=== PATIENT | female | born 1985 | race Caucasian/White ===

== ENCOUNTER 2024-09-18 18:58 | Emergency (ER) | payer OTHER, SELFPAY ==
[2024-09-18 19:03] VITALS: BP 158/91; PULSE 100; TEMP 37; O2SAT 96; BMI 45.7
[2024-09-18] MEDS: LIDOCAINE HCL 1% 100 MG/10 ML MDV INJ (19:29)
[2024-09-18] MEDS: KETOROLAC TROMETHAMINE 30 MG/ML VIAL IVP (19:29)
[2024-09-18] MEDS: CLINDAMYCIN PHOSPHATE/D5W 900 MG/50 ML PREMIX 100 MG IV (19:30)
[2024-09-18] MEDS: ONDANSETRON PF 4 MG/2 ML VIAL IV (19:30)
[2024-09-18 19:38] LABS: Basophils Absolute Auto 0.1 10^3/uL (0.0-0.1); Basophils Percent Auto 0.6 % (0.2-2.0); Eosinophils Absolute Auto 0.3 10^3/uL (0.0-0.7); Eosinophils Percent Auto 2.5 % (0.9-7.0); Hematocrit 49.4 % (36.0-48.0); Hemoglobin 16.9 g/dL (12.0-16.0); Immature Granulocytes Abs Auto 0.08 10^3/uL (0.00-0.03); Immature Granulocytes Pct Auto 0.6 % (0.0-0.5); Lymphocytes Absolute Auto 2.7 10^3/uL (1.2-3.8); Lymphocytes Percent Auto 20.5 % (20.5-60.0); Mean Corpuscular HGB Conc 34.2 g/dL (29.9-35.2); Mean Corpuscular Hemoglobin 31.1 pg (26.7-34.0); Mean Corpuscular Volume 90.8 fL (81.0-99.0); Monocytes Absolute Auto 0.7 10^3/uL (0.3-0.8); Monocytes Percent Auto 5.4 % (1.7-12.0); Neutrophils Absolute Auto 9.3 10^3/uL (1.4-6.5); Neutrophils Percent Auto 70.4 % (43.0-75.0); Platelet Count 335 10^3/uL (150-450); Red Blood Count 5.44 10^6/uL (4.20-5.40); Red Cell Distribution Width 13.2 % (11.0-15.0); White Blood Count 13.3 10^3/uL (4.0-11.0)
[2024-09-18 19:48] LABS: Alanine Aminotransferase 28 U/L (14-59); Albumin Globulin Ratio 1.1; Albumin Level 3.9 g/dL (3.4-5.0); Alkaline Phosphatase 101 U/L (46-116); Anion Gap 13.3; Aspartate Amino Transferase 11 U/L (15-37); BUN Creatinine Ratio 14.1; Bilirubin Total 0.4 mg/dL (0.2-1.0); Calcium 9.2 mg/dL (8.5-10.1); Carbon Dioxide 26.6 mmol/L (21.0-32.0); Chloride 99 mmol/L (98-107); Estimated GFR (African America >60 (>=60 mL/min/1.73m^2); Estimated GFR (Non-African Ame >60 (>=60 mL/min/1.73m^2); Globulin 3.7 g/dL; Glucose 148 mg/dL (74-106); Potassium 3.9 mmol/L (3.5-5.1); Sodium 135 mmol/L (136-145); Total Protein 7.6 g/dL (6.4-8.2)
[2024-09-18 19:50] LABS: Lactate/Lactic Acid 1.6 mmol/L (0.4-2.0)
--- NOTE | 2024-09-18 20:23 | ED_ITS ---
HPI HPI - General Adult General Chief complaint: Skin/Abscess/Foreign Body Stated complaint: ABCESS IN GROIN Time Seen by Provider: 09/18/24 19:09 Source: patient Mode of arrival: walk-in Limitations: no limitations History of Present Illness HPI narrative: 39-year-old female presents here with a chief complaint of an abscess to the left labial, vagina. Patient has a history of hidradenitis. States she has multiple abscess to this region in the past. She states she was trying to drain it at home. He has now become irritated. She is afebrile nontoxic. Patient has not been hospitalized or placed on antibiotics for these in the past. Related Data Previous Rx's ?Medication ?Instructions ?Recorded clindamycin HCl 300 mg capsule 300 mg PO TID 10 days #30 caps 09/18/24 fluconazole 200 mg tablet 200 mg PO ONCE #2 tabs 09/18/24 (Diflucan) Allergies Allergy/AdvReac Type Severity Reaction Status Date / Time No Known Drug Allergies Allergy Verified 09/18/24 19:03 Opioid HPI Opioid Management Most Recent Opioid Data: No Data to Display Review of Systems ROS Status of ROS 10 or more systems reviewed and unremark able except as noted in history and below PFSH PFSH Social History Little interest or pleasure in doing things: not at all Feeling down, depressed, or hopeless: not at all Exam Narrative Exam Narrative: All Systems are negative except as noted/marked.All systems reviewed and otherwise negative Nurses note and vital signs reviewed and patient is not hypoxic. General: The patient appears well and in no apparent distress. Patient is resting comfortably on cart. Skin: Warm, dry, no pallor noted. There is no rash noted. Head: Normocephalic, atraumatic Eye: Normal conjunctiva, no drainage, EOMI. PERRL Ears, Nose, Mouth, and Throat: oral mucosa is moist. Nares patent. Mouth without vesicles. Ear canals patent. Tm's without Erythema Cardiovascular: Regular Rate and Rhythm Respiratory: Patient is in no distress, no accessory muscle use, lungs are clear to auscultation, no wheezing, rales or rhonchi Back: non-tender, no CVA tenderness bilaterally to percussion. GI: Normal bowel sounds, no tenderness to palpation, no masses appreciated. No rebound, guarding, or rigidity noted. Musculoskeletal: The patient has no evidence of calf tenderness, no pitting edema, symmetrical pulses noted bilaterally Neurological: A&O x4, normal speech Psychiatric: Cooperative Constitutional Vital Signs, click to edit/add: Last Vital Signs Temp 98.6 F 09/18/24 19:03 Pulse 100 H 09/18/24 19:03 Resp 18 09/18/24 19:03 BP 158/91 H 09/18/24 19:03 Pulse Ox 96 09/18/24 19:03 O2 Del Method Room Air 09/18/24 19:03 Speculum exam - vagina: vaginal swelling, vaginal tenderness and other (Left vaginal abscess, induration, fluctuance) Course Vital Signs Vital signs: Vital Signs Temperature 98.6 F 09/18/24 19:03 Pulse Rate 100 H 09/18/24 19:03 Respiratory Rate 18 09/18/24 19:03 Blood Pressure 158/91 H 09/18/24 19:03 Pulse Oximetry 96 09/18/24 19:03 Oxygen Delivery Method Room Air 09/18/24 19:03 Temperature 98.6 F 09/18/24 19:03 Pulse Rate 100 H 09/18/24 19:03 Respiratory Rate 18 09/18/24 19:03 Blood Pressure 158/91 H 09/18/24 19:03 Pulse Oximetry 96 09/18/24 19:03 Oxygen Delivery Method Room Air 09/18/24 19:03 Medical Decision Making [facility] Narrative Medical decision making narrative: 39-year-old female presents here with a chief complaint of an abscess to the left labial, vagina. Patient has a history of hidradenitis. States she has multiple abscess to this region in the past. She states she was trying to drain it at home. He has now become irritated. She is afebrile nontoxic. Patient has not been hospitalized or placed on antibiotics for these in the past. upon arrival to ed, patient had IV established was given IV antibiotics of clindamycin. She had a left mons pubis, labial area of induration and swelling. History of hidradenitis. Area was anesthetized 1% lidocaine solution locally x 3 cc 11 blade was used to make a small incision to the area. Blood, serous fluid was then drained from the area. Copious amounts of saline was used to irrigate the area. Dressing applied by nursing staff. Patient will be treated with clindamycin for her abscess. She will follow-up with Dr. Carmona's office next week. Reasons to return to the emergency room were discussed. Differential Diagnosis Differential Diagnosis: abscess, bartholin cyst Medical Records Medical records reviewed: Yes I reviewed the patient's medical records Lab Data Labs: Lab Results 09/18/24 Range/Units 19:19 WBC 13.3 H (4.0-11.0) 10^3/uL RBC 5.44 H (4.20-5.40) 10^6/uL Hgb 16.9 H (12.0-16.0) g/dL Hct 49.4 H (36.0-48.0) % MCV 90.8 (81.0-99.0) fL MCH 31.1 (26.7-34.0) pg MCHC 34.2 (29.9-35.2) g/dL RDW 13.2 (11.0-15.0) % Plt Count 335 (150-450) 10^3/uL MPV 9.0 L (9.5-13.5) fL Neut % (Auto) 70.4 (43.0-75.0) % Lymph % (Auto) 20.5 (20.5-60.0) % Terry % (Auto) 5.4 (1.7-12.0) % Eos % (Auto) 2.5 (0.9-7.0) % Baso % (Auto) 0.6 (0.2-2.0) % Neut # (Auto) 9.3 H (1.4-6.5) 10^3/uL Lymph # (Auto) 2.7 (1.2-3.8) 10^3/uL Terry # (Auto) 0.7 (0.3-0.8) 10^3/uL Eos # (Auto) 0.3 (0.0-0.7) 10^3/uL Baso # (Auto) 0.1 (0.0-0.1) 10^3/uL Abs Immat Gran (auto) 0.08 H (0.00-0.03) 10^3/uL Imm/Tot Granulo (auto) 0.6 H (0.0-0.5) % Sodium 135 L (136-145) mmol/L Potassium 3.9 (3.5-5.1) mmol/L Chloride 99 (98-107) mmol/L Carbon Dioxide 26.6 (21.0-32.0) mmol/L Anion Gap 13.3 BUN 10.0 (7.0-18.0) mg/dL Creatinine 0.71 (0.55-1.02) mg/dL Est GFR ( Amer) >60 (>=60 mL/min/1.73m^2) Est GFR (Non-Af Amer) >60 (>=60 mL/min/1.73m^2) BUN/Creatinine Ratio 14.1 Glucose 148 H (74-106) mg/dL Lactate 1.6 (0.4-2.0) mmol/L Calcium 9.2 (8.5-10.1) mg/dL Total Bilirubin 0.4 (0.2-1.0) mg/dL AST 11 L (15-37) U/L ALT 28 (14-59) U/L Alkaline Phosphatase 101 (46-116) U/L Total Protein 7.6 (6.4-8.2) g/dL Albumin 3.9 (3.4-5.0) g/dL Globulin 3.7 g/dL Albumin/Globulin Ratio 1.1 Discharge Plan Discharge Chief Complaint: Skin/Abscess/Foreign Body Clinical Impression: Abscess of vagina Patient Disposition: Home, Self-Care Time of Disposition Decision: 20:20 Condition: Good Prescriptions / Home Meds: New clindamycin HCl 300 mg capsule 300 mg PO TID 10 Days Qty: 30 0RF fluconazole [Diflucan] 200 mg tablet 200 mg PO ONCE Qty: 2 0RF Print Language: Ecuadorean Instructions: Abscess (ED) Referrals: Dean Carmona DO [Physician] - 09/22/24 (call for follow up appointment) Physician,Non-Staff, [Physician] - 1 week Discharge Date/Time: 09/18/24 20:43
[2024-09-18] MEDS: BACITRACIN 0.9 GM PACKET 1 PACKET TOPICAL (20:39)
== END 2024-09-18 20:43 | disposition home or self-care (01) ==
PROVIDERS: Physician Assistant; Emergency Provider Internal Medicine; PCP Family Medicine
DX: N76.4 Abscess of vulva (principal)
CPT/HCPCS: 36415; 56405; 80053; 83605; 85025; 87040; 87070; 87075; 87186; 96365; 96375; 99285; J0736; J1885; J2405

== ENCOUNTER 2024-11-15 20:39 | Emergency (ER) | payer OTHER, SELFPAY ==
[2024-11-15 20:42] VITALS: BP 153/97; PULSE 88; TEMP 37.1; O2SAT 96; BMI 47.6
--- OUTSIDE RECORDS SUMMARY | 2024-11-15 20:45 | XMS_ITS | CCD ---
Author Organization [facility] Care Team Providers Care [employer] Producer Name Role Phone LAYO BILLS Admitting Unavailable LAYO BILLS Attending Unavailable HOUSE, SANJEEV Referring Unavailable HOUSE, SANJEEV Primary Care Unavailable [facility] Procedure Practitioner Unavailab LAYO Faith Surgeon Unavailable UT Procedure Practitioner Unavailab TONY Linares Surgeon Unavailable House, Sr Sanjeev P Primary Care Provider House, Sr Sanjeev P Primary Care Provider House DO, Sr Sanjeev P Primary Care Provider [phone] SARTHAK PARMAR Attending Unavailable HOUSE, SR SANJEEV P Primary Care Unavailable HOUSE, SR SANJEEV P Primary Care Unavailable NEELIMA DUTTON Attending Unavailable HOUSE, SR SANJEEV P Primary Care Unavailable HOUSE, SR SANJEEV P Primary Care Unavailable ADELA SWENSON Attending Unavailable TONIE ARZOLA Attending Unavailable HOUSE, SR SANJEEV P Primary Care Unavailable HOUSE, SR SANJEEV P Primary Care Unavailable Bill Dan Unavailable HOUSE, DR PATEL Admitting Unavailable HOUSE, DR PATEL Attending Unavailable HOUSE, DR PATEL Primary Care Unavailable MARKER, DR MORRISSEY Admitting Unavailable MARKER, DR MORRISSEY Attending Unavailable MARKER, DR MORRISSEY Consulting Unavailable HOUSE, DR PATEL Primary Care Unavailable KURTIS CHAU Consulting Unavailable ALEX VALLEJO Attending Unavailable CHARLES, DR CYRUS Ventura Consulting Unavailable HOUSE, DR PATEL Primary Care Unavailable ALEX VALLEJO Admitting Unavailable ALEX VALLEJO Consulting Unavailable ANDERS BHARDWAJ Attending Unavailable [facility] [place] DR VICTORIA Primary Care Unavailable [place], DR RAOUL Barth Consulting Unavailable ANDERS BHARDWAJ Admitting Unavailable ANDERS BHARDWAJ Consulting Unavailable HOUSE, DR PATEL Primary Care Unavailable STEPHEN OTTO Admitting Unavailable STEPHEN OTTO Attending Unavailable STEPHEN OTTO Consulting Unavailable Bill Dan Unavailable Unavailable Unavailable DO Jose Lan Admit Provider DO Bill Dan Primary Care Provider GUS Montesinos Other Provider Unavailable DO Suzette Sow Other Provider MD Orlando Lara Other Provider MD Waldo Varma Other Provider MD Maite Leary Other Provider MD Sanjeev Ibrahim Other Provider ROCCO Bowden Other Provider MD Brooklynn Rg Other Provider MD Shavonne Lawrence Najoseline Other Provider MD Brynn Wright Other Provider MD Yash Garvey Attending Provider Waldo Varma II Attending Unavailable Waldo Varma II Referring Unavailable Dr. Waldo Sow Attending Unavailable Dr. Waldo Sow Attending Unavailable Dr. Waldo Sow Referring Unavailable Waldo Varma II Attending Unavailable MD Brooklynn Rg Other Provider DO Aurelio Jesus Emergency Provider DO Stephane Alonso Emergency Provider [phone] DO Bill Dan Primary Care Provider ROCCO Elaine Attending Provider [phone] DO Bill Dan Primary Care Provider Lesia [facility] Emergency Provider Kendrick Joya Unavailable DO Bill Dan Primary Care Provider MD Mc Duran Attending Provider DO Bill Dan Attending Provider ROCCO Elaine Referring Provider Bill Dan MD Primary Care Provider Mely Steinberg MD Unavailable [phone] Bill Dan DO Primary Care Provider NON STAFF Primary Care Provider Unavailabl e DO Gavin [facility] Emergency Provider [phone] DO Bill Dan Primary Care Provider MD Mc Duran Attending Provider DO Bill Dan Referring Provider MD Nigel Lawson Attending Provider DO Bill Dan Primary Care Provider MD Mc Duran Attending Provider MD Mely Steinberg Attending Provider [phone] DO Bill Dan Primary Care Provider MD Mc Duran Attending Provider MD Mc Duarn Attending Provider ROCCO Elaine Attending Provider [phone] Bill Dan DO Primary Care Provider Molly Elaine APRN Attending Provider Mc Duran MD Attending Provider Earnestine Alonso APRN Emergency Provider MELY STEINBERG Attending Unavailable MELY STEINBERG Referring Unavailable NIGEL LAWSON Attending Unavailable ALDEN LIN Attending Unavailable Bill Dan MD Primary Care Provider Bill Dan DO Primary Care Provider WALDO SOW Attending Unavailable SVETA GARNICA Referring Unavailable BILL DAN Primary Care UnavailBill Martell Primary Care Unavailable Molly Elaine Admitting Unavailable Molly Elaine Attending Unavailable Bill Dan Primary Care Unavailable Mely Steinberg Admitting Unavailable Mely Steinberg Attending Unavailable Bill Dan Primary Care Unavailable Mc Duran Admitting Unavailab Mc Antony Attending Unavailab Bill Jennings Primary Care Unavailable Mely Steinberg Admitting Unavailable Mely Steinberg Attending Unavailable Earnestine Alonso Admitting Unavailable Earnestine Alonso Attending Unavailable Bill Dan Primary Care Unavailable Allergies Allergy Classification Reported Allergen(s) Allergy Type Date of Onset Reaction(s) Facility (1 source) metFORMIN Drug Allergy 01-20-2022 Abdominal Pain [facility] Medications Current Medications Medication Drug Class(es) Dates Sig (Normalized) Sig (Original) acetaminophen 325 mg / HYDROcodone bitartrate 5 mg oral tablet (7 sources) Opioid Agonist Start: 02-23-2020 End: 02-26-2020 take 1 tablet by mouth every six hours as needed for pain, then take 1 tablet by mouth as needed for pain HYDROcodone-acetam inophen (NORCO) 5-325 MG per tablet Indications: Non-intractable vomiting with nausea, unspecified vomiting type Take 1 tablet by mouth every 6 hours as needed for Pain for up to 3 days. Intended supply: 3 days. Take lowest dose possible to manage pain 6 tablet 0 02/23/2020 02/26/2020 Active Start: 02-23-2020 End: 02-23-2020 HYDROcodone-acetaminophen (N ORCO) 5-325 MG per tablet 1 tablet Start: 02-21-2020 hydrocodone-ac etaminophen (NORCO) tablet 5-325 mg (STARTER PACK) Start: 10-28-2016 End: 02-23-2020 take 1 tablet by mouth every four hours as needed for pain HYDROcodone-acetaminophen (NORCO) 5-325 MG per tablet Take 1 tablet by mouth every 4 hours as needed for Pain . 10 tablet 0 10/28/2016 02/23/2020 Discontinued (LIST CLEANUP) albuterol 0.83 mg/ml inhalation solution (20 sources) beta2-Adrenergic Agonist Start: 09-09-2024 End: 10-09-2024 albuterol (2.5 MG/3ML) 0.083% nebulizer solution Indications: Bronchitis with asthma, acute ([facility]/HCC) Take 3 mL (2.5 mg) by nebulization every 6 (six) hours if needed for wheezing or shortness of breath 90 mL 09/09/2024 10/09/2024 Active Start: 06-04-2024 take 2.5 mg by inhal ation every four to six hours as needed for wheezing Albuterol Sulfate 2.5 mg /3 mL (0.083 %) solution for nebulization Active 2.5 MG INHALATION EVERY 4-6 HOURS as needed for shortness of breath or wheezing 75 June 04, 2024 12:00am Start: 03-02-2024 End: 04-21-2024 take 1 puff(s) by mouth every four hours as needed Albuterol Sulfate 90 mcg/actuation HFA aerosol inhaler Active 0 .ROUTE .COMPLEX April 21, 2024 8:53am INHALE 1 PUFF BY MOUTH EVERY 4 HOURS NEEDED Start: 07-13-2021 take 1 puff(s) by in halation every four hours as needed Albuterol Sulfate HFA 108 (90 Base) MCG/ACT 1 puff as needed Inhalation every 4 hrs PRN Jul, Active Start: 07-13-2021 take 1 puff(s) by in halation every four hours as needed Albuterol Sulfate HFA 108 (90 Base) MCG/ACT 1 puff as needed Inhalation every 4 hrs PRN Jul, Active Start: 03-29-2020 End: 03-02-2024 take 1 puff(s) by inhalation every six hours Albuterol Sulfate (Proair Hfa) 90 mcg/actuation HFA aerosol inhaler Discontinued 2 PUFF INHALATION Every 6 hours January 19, 2022 11:00pm April 29, 2023 12:52pm take 2 puff(s) by in halation every six hours albuterol 90 mcg/actuation inhaler Inhale 2 puffs every 6 hours. Active take 2 puff(s) by in halation every six hours albuterol HFA 90 mcg/act inhaler Inhale 2 puffs every 6 (six) hours Active Albuterol Sulfat e (2.5 MG/3ML) 0.083% 3 ml as needed Inhalation every 6 hrs PRN Active take 1 puff(s) by mo uth every four hours as needed Ventolin HFA 108 (90 Base) MCG/ACT INHALE ONE PUFF BY MOUTH EVERY 4 HOURS NEEDED for 33 days Active Albuterol Sulfat e (2.5 MG/3ML) 0.083% 3 ml as needed Inhalation every 6 hrs PRN Active albuterol sulfat e HFA 108 (90 BASE) MCG/ACT inhaler Inhale 2 puffs into the lungs as needed for Wheezing 0 Active albuterol sulfat e HFA 108 (90 BASE) MCG/ACT inhaler Inhale 2 puffs into the lungs as needed for Wheezing 0 Active albuterol 0.833 mg/ml / ipratropium bromide 0.167 mg/ml inhalation solution (7 sources) Anticholinergic, beta2-Adrenergic Agonist Start: 10-21-2018 take 3 mL by inhalation every four to six hours as needed ipratropium-albuterol (DUONEB) 0.5-2.5 (3) MG/3ML SOLN nebulizer solution Inhale 3 mLs into the lungs every 4-6 hours as needed for Shortness of Breath 100 vial 1 10/21/2018 Active aspirin 81 mg delayed release oral tablet (20 sources) Platelet Aggregation Inhibitor, Nonsteroidal Anti-inflammatory Drug Start: 02-15-2022 End: 10-01-2023 take 1 tablet by mouth once daily aspirin 81 mg EC tablet Indications: Mild CAD , NSTEMI, initial episode of care (Multi) Take 1 tablet (81 mg) by mouth once daily. 90 tablet 3 10/01/2023 Active Start: 01-22-2022 End: 01-21-2024 take 1 capsule by mouth once daily in the morning Aspirin 81 mg capsule Active 81 MG PO Every morning January 20, 2024 11:00pm take 1 tablet by supriya th every twenty-four hours Aspirin 81 MG 1 tablet Orally Once a day Active atenolol 50 mg oral tablet (20 sources) beta-Adrenergic Leticia Start: 03-09-2014 End: 09-29-2025 take 1 tablet by mouth once daily atenolol (Tenormin) 50 mg tablet Indications: Syndrome X (cardiac) Take 1 tablet (50 mg) by mouth once daily. 90 tablet 3 09/29/2024 09/29/2025 Active atorvastatin 40 mg oral tablet (20 sources) HMG-CoA Reductase Inhibitor Start: 04-20-2024 take 1 tablet by mouth once daily at bedtime atorvastatin (Lipitor) 40 mg tablet Indications: Pure hypercholesterolemia TAKE 1 TABLET BY MOUTH EVERY NIGHT AT BEDTIME 90 tablet 3 04/20/2024 Active Start: 01-22-2022 End: 01-21-2024 take 1 tablet by mouth at bedtime atorvastatin (Lipitor) 40 MG tablet Take 40 mg by mouth at bedtime 06/10/2023 Active Austedo XR 30 mg tablet extended release 24 hr (1 source) Start: 04-06-2024 take 1 tablet by mouth once daily Austedo XR 30 mg tablet extended release 24 hr Take 1 tablet by mouth once daily. 04/06/2024 Active Austedo XR 30 MG tablet sustained-release 24 hour (7 sources) Start: 04-06-2024 take 1 tablet by mouth once daily Austedo XR 30 MG tablet sustained-release 24 hour Take 1 tablet by mouth Daily 04/06/2024 Active Blood Glucose Monitoring Suppl (ONE TOUCH ULTRA 2) w/Device kit (15 sources) Start: 10-03-2022 Blood Glucose Monitoring Suppl (ONE TOUCH ULTRA 2) w/Device kit 10/03/2022 Active Start: 10-03-2022 Blood Glucose Monitoring Suppl (ONE TOUCH ULTRA 2) w/Device kit buprenorphine 8 mg / naloxone 2 mg sublingual film (20 sources) Partial Opioid Agonist, Opioid Antagonist Start: 03-31-2024 Buprenorphine-Naloxo ne (Suboxone) 8-2 mg film Active 2 FILM BUCCAL Daily March 30, 2024 11:00pm place 1 film on inside of (each) cheek Start: 04-29-2023 buprenorphine- naloxone (Suboxone) 12-3 MG per sublingual film Q24H 04/29/2023 Active Start: 04-29-2023 End: 03-31-2024 Buprenorphine-Naloxone (Subo xone) 12-3 mg Film Discontinued 1 FILM BUCCAL Q24H April 29, 2023 12:00am March 31, 2024 12:56pm Start: 01-20-2022 End: 04-29-2023 Buprenorphine-Naloxone 2-0.5 mg Tablet, Sublingual Discontinued 1 TAB SUBLINGUAL Bedtime January 19, 2022 11:00pm April 29, 2023 12:53pm Start: 01-20-2022 End: 10-01-2023 Buprenorphine-Naloxone (Subo xone) 4-1 mg Film Discontinued 1 FILM SUBLINGUAL Daily January 19, 2022 11:00pm April 29, 2023 12:53pm buprenorphine-na loxone (Suboxone) 2-0.[address] 1 tablet under the tongue once daily. Active End: 10-01-2023 Suboxone 2-0.5 mg per sublin gual film Place under the tongue. 10/01/2023 Discontinued (Dose adjustment) Suboxone 12-3 MG 1 film under the tongue and allow to dissolve Sublingual Once a day Active take 2 tablets by [facility] every twenty-four hours Buprenorphine HCl-Naloxone HCl 2-0.5 MG 2 tablets under the tongue and allow to dissolve Sublingual Once a day Active Suboxone 2-0.5 M G Sublingual Film sublingual at bedtime Quantity: 0 Refills: 0 Ordered: 31-Jan-2022 DO Active Suboxone 4-1 MG 1 film under the tongue and allow to dissolve Sublingual Once a day Active busPIRone hydrochloride 30 mg oral tablet (20 sources) Start: 09-18-2023 take 1 tablet by mouth three times daily Buspirone 30 mg tablet Active 30 MG PO Three times daily January 20, 2024 11:00pm Start: 02-17-2023 busPIRone (Bus par) 15 MG tablet 02/17/2023 Active Start: 01-20-2022 End: 01-21-2024 take 3 tablets by mouth twice daily Buspirone 10 mg tablet Discontinued 30 MG PO 2 times daily January 19, 2022 11:00pm January 21, 2024 8:19am Start: 01-20-2022 End: 01-21-2024 take 30 mg by mouth twice daily Buspirone Discontinued 30 MG PO 2 times daily January 20, 2022 12:00am January 21, 2024 9:19am Start: 01-20-2022 End: 10-01-2023 take 10 mg by mouth twice daily Buspirone Active 10 MG PO 2 times daily January 20, 2022 12:00am Continuous Glucose Sensor (Dexcom G7 Sensor) misc (7 sources) Start: 04-19-2024 Continuous Glu cose Sensor (Dexcom G7 Sensor) mis 1 each 04/19/2024 Active Deutetrabenazine (3 sources) Start: 03-31-2024 take 1 tablet by mouth once daily Deutetrabenazine (Austedo Xr) 30 mg tablet extended release 24 hr Active 30 MG PO Daily March 30, 2024 11:00pm Start: 03-31-2024 take 1 tablet by supriya th once daily Deutetrabenazine (Austedo Xr) 30 mg tablet extended release 24 hr Active 30 MG PO Daily March 31, 2024 12:00am doxepin hydrochloride 50 mg oral capsule (20 sources) Tricyclic Antidepressant Start: 07-17-2023 End: 10-06-2024 doxepin (SINEquan) 50 mg capsule 1 capsule (50 mg) once daily. 07/17/2023 10/06/2024 Discontinued (Therapy completed) Start: 04-29-2023 End: 03-31-2024 doxepin (SINEquan) 10 MG cap paula Daily 04/29/2023 Active 0.5 ml dulaglutide 3 mg/ml auto-injector (20 sources) GLP-1 Receptor Agonist Start: 06-05-2023 End: 07-14-2024 Trulicity 1.5 MG/0.5ML solution pen-injector 06/05/2023 07/14/2024 Discontinued (Dose adjustment) Start: 04-29-2023 End: 08-07-2023 Dulaglutide (Trulicity) 0.75 mg/0.5 mL pen injector Discontinued 1.5 MG SUBCUT .weekly April 29, 2023 12:00am August 07, 2023 9:39am Start: 04-29-2023 Dulaglutide (T rulicity) 0.75 mg/0.5 mL pen injector Active MG SUBCUT April 29, 2023 12:00am Start: 10-02-2022 inject 0.75 mg by murray bcutaneous injection every week Trulicity 0.75 MG/0.5ML 0.75 mg Subcutaneous once a week for 30 days October, Active Dulaglutide (Trulicity) 3 mg /0.5 mL pen injector (5 sources) Start: 01-21-2024 Dulaglutide (T rulicity) 3 mg/0.5 mL pen injector Active 3 MG SUBCUT every week January 20, 2024 11:00pm Start: 01-21-2024 Dulaglutide (T rulicity) 3 mg/0.5 mL pen injector Active 3 MG SUBCUT every week January 21, 2024 12:00am Dulaglutide (Trulicity) 3 MG/0.5ML solution auto-injector (8 sources) Start: 03-27-2024 inject 3 mg by subcutaneous injection every week Dulaglutide (Trulicity) 3 MG/0.5ML solution auto-injector Indications: Type 2 diabetes mellitus with hyperglycemia, with long-term current use of insulin (CMS/HCC) Inject 3 mg under the skin 1 (one) time per week 12 mL 1 03/27/2024 Active Start: 03-27-2024 End: 06-25-2024 inject 3 mg by subcutaneous injection every week Dulaglutide (Trulicity) 3 MG/0.5ML solution auto-injector Indications: Type 2 diabetes mellitus with hyperglycemia, with long-term current use of insulin (CMS/HCC) Inject 3 mg under the skin 1 (one) time per week 12 mL 1 03/27/2024 06/25/2024 Active empagliflozin 25 mg oral tablet (15 sources) Sodium-Glucose Cotransporter 2 Inhibitor Start: 09-10-2023 End: 02-27-2025 take 1 tablet by mouth once daily empagliflozin (Jardiance) 25 MG Indications: Type 2 diabetes mellitus with hyperglycemia, with long-term current use of insulin (CMS/HCC) Take 1 tablet (25 mg) by mouth Daily 90 tablet 1 08/31/2024 02/27/2025 Active ergocalciferol 1.25 mg oral capsule (13 sources) Provitamin D2 Compound Start: 01-21-2024 take 1 capsule by mouth every week ergocalciferol (Vitamin D2) 1.25 MG (94684 UT) capsule Indications: Type 2 diabetes mellitus with hyperglycemia, with long-term current use of insulin (CMS/HCC) TAKE 1 CAPSULE BY MOUTH ONCE WEEKLY 12 capsule 3 04/26/2024 Active escitalopram 10 mg oral tablet (2 sources) Serotonin Reuptake Inhibitor Start: 07-13-2021 take 1 tablet by mouth every twenty-four hours Escitalopram Oxalate 10 MG 1 tablet Orally Once a day for 30 day(s) Jul, Active 2 ml famotidine 10 mg/ml injection (8 sources) Histamine-2 Receptor Antagonist Start: 02-23-2020 famotidine (PEPCID) injection 20 mg Start: 07-10-2016 End: 01-23-2021 take 1 tablet by mouth twice daily famotidine (PEPCID) 20 MG tablet Take 1 tablet by mouth 2 times daily 60 tablet 3 07/10/2016 01/23/2021 Discontinued (LIST CLEANUP) 60 actuat formoterol fumarate 0.005 mg/actuat / mometasone furoate 0.2 mg/actuat metered dose inhaler (20 sources) Corticosteroid, beta2-Adrenergic Agonist take 2 puff(s) by inhalation twice daily Dulera 200-5 mcg/actuation inhaler Inhale 2 puffs 2 times a day. Active take 2 puff(s) by inhalation in the morning Dulera 200-5 MCG/ACT inhaler Inhale 2 puffs in the morning and 2 puffs in the evening. Active take 2 puff(s) by mouth twice da cydney Dulera 200-5 MCG/ACT INHALE TWO PUFFS BY MOUTH TWICE A DAY for 30 Active take 2 puff(s) by mouth twice da cydney Dulera 200-5 MCG/ACT INHALE TWO PUFFS BY MOUTH TWICE A DAY for 30 Active take 1 puff(s) by inhalation twi ce daily mometasone-formoterol (DULERA) 100-5 MCG/ACT inhaler Inhale 1 puff into the lungs 2 times daily 0 Active gabapentin 100 mg oral capsule (14 sources) Anti-epileptic Agent Start: 03-31-2024 take 1 capsule by mouth at bedtime gabapentin (Neurontin) 100 MG capsule Take 1 capsule by mouth at bedtime 03/31/2024 Active Start: 10-17-2016 End: 02-23-2020 gabapentin (NEURONTIN) 300 M G capsule 300 mg 2 times daily 0 10/17/2016 02/23/2020 Discontinued (LIST CLEANUP) Glucometer Device (6 sources) Start: 10-02-2022 Glucometer Device as directed as directed as directed for as directed October, Active hydroCHLOROthiazide 25 mg oral tablet (1 source) Thiazide Diuretic Start: 10-06-2024 End: 10-06-2025 take 1 tablet by mouth every other day hydroCHLOROthiazide (HYDRODiuril) 25 mg tablet Indications: Localized edema Take 1 tablet (25 mg) by mouth every other day. 45 tablet 3 10/06/2024 10/06/2025 Active hydrocortisone 25 mg/ml topical cream (19 sources) Corticosteroid Start: 06-18-2023 hydrocortisone 2.5 % cream 06/18/2023 Active Start: 06-05-2023 Hydrocortisone 2.5 % 1 application as needed Externally every 12 hrs Jun, Active 3 ml insulin detemir 100 unt/ml pen injector (2 sources) Insulin Analog Start: 07-09-2023 Levemir FlexPe n 100 UNIT/ML 15-30 units Subcutaneous once a day for 30 days 30 days Jul, Active 1 ml medroxyPROGESTERone acetate 150 mg/ml injection (15 sources) Progestin Start: 10-15-2023 medroxyPROGEST ERone (Depo-Provera) 150 MG/ML injection Indications: Abnormal vaginal bleeding One ml every 10 weeks 1 mL 4 10/15/2023 Active Start: 07-09-2023 End: 10-07-2023 medroxyPROGESTERone (Depo-Pr overa) 150 MG/ML injection Indications: Abnormal vaginal bleeding Inject 1 mL (150 mg) into the shoulder, thigh, or buttocks every 3 (three) months 1 mL 4 07/09/2023 10/07/2023 Active 24 hr metFORMIN hydrochloride 500 mg extended release oral tablet (20 sources) Biguanide Start: 06-24-2024 End: 09-22-2024 take 2 tablets by mouth every twenty-four hours in the morning metFORMIN XR (Glucophage-XR) 500 MG 24 hr tablet Indications: Type 2 diabetes mellitus with hyperglycemia, unspecified whether half-way insulin use (CMS/HCC) Take 2 tablets (1,000 mg) by mouth in the morning and 2 tablets (1,000 mg) before bedtime. Do not crush, chew, or split.. 120 tablet 1 06/24/2024 09/22/2024 Active Start: 01-21-2024 take 1 tablet by supriya th twice daily Metformin 1,000 mg tablet Active 1000 MG PO Twice daily January 20, 2024 11:00pm Start: 12-03-2023 End: 01-21-2024 take 1 tablet by mouth twice daily Metformin 500 mg tablet extended release 24 hr Discontinued 0 .ROUTE .COMPLEX 180 December 03, 2023 11:50am January 21, 2024 8:17am TAKE 1 TABLET BY MOUTH TWICE A DAY Start: 08-15-2023 metFORMIN XR 5 00 mg 24 hr tablet 2 tablets (1,000 mg) 2 times daily (morning and late afternoon). 08/15/2023 Active Start: 06-05-2023 metFORMIN XR ( Glucophage-XR) 500 MG 24 hr tablet 06/05/2023 Active Start: 01-22-2022 End: 12-03-2023 take 1 tablet by mouth twice daily Metformin 500 mg tablet extended release 24hr Discontinued 500 MG PO Twice daily January 21, 2022 11:00pm December 03, 2023 11:50am Start: 01-20-2022 End: 01-20-2022 take 1 tablet by mouth once daily Metformin 500 mg tablet extended release 24 hr Discontinued 500 MG PO Daily January 19, 2022 11:00pm January 20, 2022 9:29am Start: 07-13-2021 take 1 tablet by supriya th every twelve hours metFORMIN HCl ER 500 MG 1 tablet Orally twice a day Jul, Active Start: 07-13-2021 take 1 tablet by supriya th every twenty-four hours metFORMIN HCl ER 500 MG 1 tablet with evening meal Orally Once a day Jul, Active End: 10-01-2023 take 1 tablet by mouth twice daily at mealtime metFORMIN (Glucophage) 500 mg tablet Take 1 tablet (500 mg) by mouth 2 times a day with meals. 10/01/2023 Discontinued (Dose adjustment) methylPREDNISolone (3 sources) Corticosteroid Start: 09-09-2024 methylPREDNISolone (Medrol Dospak) 4 MG tablets Indications: Bronchitis with asthma, acute (CMS/HCC) Follow schedule on package instructions 21 tablet 09/09/2024 Active Mometasone-Formoterol (Dulera) 200-5 mcg/actuation HFA aerosol inhaler (20 sources) Start: 01-21-2024 take 1 puff(s) by inhalation twice daily Mometasone-Formoterol (Dulera) 200-5 mcg/actuation HFA aerosol inhaler Active 2 PUFF INHALATION Twice daily January 20, 2024 11:00pm Start: 01-21-2024 take 1 puff(s) by in halation twice daily Mometasone-Formoterol (Dulera) 200-5 mcg/actuation HFA aerosol inhaler Active 2 PUFF INHALATION Twice daily January 21, 2024 12:00am Start: 01-10-2024 End: 01-21-2024 take 2 puff(s) by mouth twice daily Mometasone-Formoterol (Dulera) 200-5 mcg/actuation HFA aerosol inhaler Discontinued 0 .ROUTE .COMPLEX 39 January 10, 2024 7:02am January 21, 2024 8:38am INHALE 2 PUFFS BY MOUTH TWICE A DAY Start: 01-10-2024 End: 01-21-2024 take 2 puff(s) by mouth twice daily Mometasone-Formoterol (Dulera) 200-5 mcg/actuation HFA aerosol inhaler Discontinued 0 .ROUTE .COMPLEX 39 January 10, 2024 8:02am January 21, 2024 9:38am INHALE 2 PUFFS BY MOUTH TWICE A DAY Start: 03-29-2020 End: 01-10-2024 take 1 puff(s) by inhalation twice daily Mometasone-Formoterol (Dulera) 200-5 mcg/actuation HFA aerosol inhaler Discontinued 2 PUFF INHALATION Twice daily March 28, 2020 11:00pm January 10, 2024 7:02am Start: 03-29-2020 End: 01-10-2024 take 1 puff(s) by inhalation twice daily Mometasone-Formoterol (Dulera) 200-5 mcg/actuation HFA aerosol inhaler Discontinued 2 PUFF INHALATION Twice daily March 29, 2020 12:00am January 10, 2024 8:02am Start: 03-29-2020 take 1 puff(s) by in halation twice daily Mometasone-Formoterol (Dulera) 200-5 mcg/actuation HFA aerosol inhaler Active 2 PUFF INHALATION Twice daily March 28, 2020 11:00pm Start: 03-29-2020 take 1 puff(s) by in halation twice daily Mometasone-Formoterol (Dulera) 200-5 mcg/actuation HFA aerosol inhaler Active 2 PUFF INHALATION Twice daily March 29, 2020 12:00am 24 hr oxybutynin chloride 5 mg extended release oral tablet (20 sources) Cholinergic Muscarinic Antagonist Start: 06-24-2023 End: 01-21-2024 oxybutynin XL (Ditropan-XL) 5 mg 24 hr tablet 1 tablet (5 mg) once daily. 06/24/2023 Active Start: 10-02-2022 End: 04-07-2024 take 1 tablet by mouth once daily at bedtime Oxybutynin Chloride 5 mg tablet extended release 24hr Discontinued 5 MG PO Daily at bedtime January 20, 2024 11:00pm April 07, 2024 7:47am TAKE 1 TABLET BY MOUTH DAILY prazosin 5 mg oral capsule (20 sources) alpha-Adrenergic Leticia Start: 04-29-2023 prazo sin (Minipress) 5 MG capsule Daily at bedtime 04/29/2023 Active take 1 capsule by [facility] every twenty-four hours Prazosin HCl 2 MG 1 capsule at bedtime Orally Once a day Active predniSONE 20 mg oral tablet (1 source) Start: 06-04-2024 take 2 tablets by mouth once daily Prednisone 20 mg tablet Active 40 MG PO Daily 8 June 04, 2024 12:00am QUEtiapine 200 mg oral tablet (20 sources) Atypical Antipsychotic Start: 03-31-2024 take 1 tablet by mouth once daily at bedtime Quetiapine (Seroquel) 200 mg tablet Active 200 MG PO Daily at bedtime March 30, 2024 11:00pm Start: 01-21-2024 End: 03-31-2024 take 1 tablet by mouth once daily at bedtime Quetiapine 300 mg tablet Discontinued 300 MG PO Daily at bedtime January 20, 2024 11:00pm March 31, 2024 12:55pm Start: 04-29-2023 QUEtiapine (SE ROquel) 100 mg tablet 1 tablet (100 mg) once daily at bedtime. 04/29/2023 Active Start: 04-29-2023 End: 01-21-2024 Quetiapine 100 mg tablet Discontinued 50 MG PO Daily at bedtime April 29, 2023 12:00am January 21, 2024 8:21am Start: 04-29-2023 End: 01-21-2024 take 50 mg by mouth once daily at bedtime Quetiapine Discontinued 50 MG PO Daily at bedtime April 29, 2023 1:00am January 21, 2024 9:21am Start: 04-29-2023 take 10 mg by mouth once daily at bedtime Quetiapine Active 10 MG PO Daily at bedtime April 29, 2023 12:00am Start: 04-02-2020 End: 01-20-2022 take 1 tablet by mouth at bedtime Quetiapine 50 mg Tablet Discontinued 50 MG PO Bedtime 14 14 April 08, 2020 12:00am January 20, 2022 3:11am take 1 tablet by supriya th every twenty-four hours SEROquel 200 MG 1 tablet at bedtime Orally Once a day Active rifAMPin 300 mg oral capsule (2 sources) Rifamycin Antibacterial rifAMPin 300 MG as directed Orally Active Trulicity 3 mg/0.5 mL pen injector (2 sources) Start: 09-10-19 24 Trulicity 3 mg/0.5 mL pen injector every 7 days. 09/10/2023 Active 24 hr venlafaxine 150 mg extended release oral capsule (20 sources) Serotonin and Norepinephrine Reuptake Inhibitor Start: 04-29-20 take 1 capsule by mouth once daily in the morning Venlafaxine 150 mg capsule,extended release 24hr Active 150 MG PO Every morning April 29, 2023 12:00am Start: 11-06-2022 venlafaxine XR (Effexor-XR) 75 mg 24 hr capsule 1 capsule (75 mg) once daily. 11/06/2022 Active Start: 11-06-2022 venlafaxine XR (Effexor XR) 75 MG 24 hr capsule 11/06/2022 Active Start: 04-08-2020 End: 01-20-2022 take 1 capsule by mouth once daily at bedtime Venlafaxine (Effexor Xr) 150 mg capsule,extended release 24hr Discontinued 150 MG PO Daily at bedtime January 20, 2022 3:10am January 20, 2022 5:06am Start: 04-02-2020 End: 04-08-2020 take 1 capsule by mouth once daily at bedtime Venlafaxine 75 mg Capsule,Extended Release 24hr Discontinued 75 MG PO Daily at bedtime April 01, 2020 11:00pm April 08, 2020 12:07pm Completed/Discontinued Medications Medication Drug Class(es) Dates Sig (Normalized) Sig (Original) albuterol sulfate HFA 108 (90 Base) MCG/ACT inhaler (4 sources) Start: 10-21-2018 End: 02-23-2020 take 1-2 puff(s) by inhalation every four to six hours albuterol sulfate HFA 108 (90 Base) MCG/ACT inhaler 1-2 puffs every 4-6 hours when necessary shortness of breath or wheeze 1 Inhaler 2 10/21/2018 02/23/2020 Discontinued (LIST CLEANUP) Start: 10-21-2018 take 1-2 puff(s) by inhalation every four to six hours albuterol sulfate HFA 108 (90 Base) MCG/ACT inhaler 1-2 puffs every 4-6 hours when necessary shortness of breath or wheeze 1 Inhaler 2 10/21/2018 Active Budesonide-Formoterol Fumarate (SYMBICORT IN) (4 sources) End: 02-23-2020 take 1 puff(s) by inhalation twice daily Budesonide-Formoterol Fumarate (SYMBICORT IN) Inhale 1 puff into the lungs 2 times daily 0 02/23/2020 Discontinued (LIST CLEANUP) take 1 puff(s) by in halation twice daily Budesonide-Formoterol Fumarate (SYMBICOR T IN) Inhale 1 puff into the lungs 2 times daily 0 Active buprenorphine 2 mg sublingual tablet (1 source) Partial Opioid Agonist Start: 03-29-2020 End: 03-29-2020 buprenorphine (SUBUTEX) SL tablet 8 mg carBAMazepine 100 mg chewable tablet (7 sources) Mood Stabilizer End: 01-23-2021 take 1 tablet by mouth three times daily carBAMazepine (TEGRETOL) 100 MG chewable tablet Take 100 mg by mouth 3 times daily 0 01/23/2021 Discontinued (LIST CLEANUP) cephalexin 500 mg oral capsule (9 sources) Cephalosporin Antibacterial Start: 04-29-2023 End: 06-24-2023 take 2 capsules by mouth twice daily Cephalexin 500 mg capsule Discontinued 1000 MG PO Twice daily 40 April 29, 2023 12:00am June 24, 2023 10:26am Start: 04-29-2023 End: 06-24-2023 take 1000 mg by mouth twice daily Cephalexin Discontinued 1000 MG PO Twice daily 40 April 29, 2023 1:00am June 24, 2023 11:26am chlorhexidine gluconate 40 mg/ml medicated liquid soap (4 sources) Start: 09-27-2016 End: 02-23-2020 chlorhexidine (HIBICLENS) 4 % external liquid Apply topically daily as needed. 1 Bottle 3 09/27/2016 02/23/2020 Discontinued (LIST CLEANUP) clindamycin 0.01 mg/mg topical gel (6 sources) Lincosamide Antibacterial Start: 10-21-2016 End: 02-23-2020 clindamycin (CLINDAGEL) 1 % gel take 1 capsule by [facility] every twelve hours Clindamycin HCl 300 MG 1 capsule Orally every 12 hrs Active 2 ml dicyclomine hydrochloride 10 mg/ml injection (2 sources) Anticholinergic Start: 02-23-2020 End: 02-23-2020 dicyclomine (BENTYL) injection 20 mg Start: 02-21-2020 End: 02-21-2020 dicyclomine (BENTYL) injecti on 20 mg doxycycline hyclate 100 mg oral tablet (13 sources) Tetracycline-class Drug Start: 04-04-2022 End: 04-29-2023 take 1 tablet by mouth twice daily Doxycycline Hyclate 100 mg tablet Discontinued 100 MG PO Twice daily 20 April 03, 2022 11:00pm April 29, 2023 12:54pm 2 ml fentaNYL 0.05 mg/ml injection (2 sources) Opioid Agonist Start: 02-23-2020 End: 02-23-2020 fentaNYL (SUBLIMAZE) injection 25 mcg Start: 02-23-2020 End: 02-23-2020 fentaNYL (SUBLIMAZE) injecti on 50 mcg FLUoxetine 20 mg oral capsule (18 sources) Serotonin Reuptake Inhibitor Start: 03-29-2020 End: 01-23-2021 take 1 capsule by mouth once daily Fluoxetine 20 mg capsule Discontinued 20 MG PO Daily March 28, 2020 11:00pm April 02, 2020 10:17am hydrOXYzine pamoate 50 mg oral capsule (20 sources) Antihistamine Start: 03-29-2020 End: 04-29-2023 Hydroxyzine Pamoate (Vistaril) 50 mg capsule Discontinued 25 MG PO Three times daily as needed for Anxiety March 28, 2020 11:00pm April 29, 2023 12:55pm End: 10-01-2023 take 1 capsule by mouth three times daily as needed hydrOXYzine pamoate (VistariL) 50 mg capsule Take 1 capsule (50 mg) by mouth 3 times a day as needed. 10/01/2023 Discontinued (Therapy completed) End: 01-23-2021 take 1 capsule by mouth three times daily as needed hydrOXYzine (VISTARIL) 25 MG capsule Take 25 mg by mouth 3 times daily as needed for Itching 0 01/23/2021 Discontinued (LIST CLEANUP) ibuprofen 600 mg oral tablet (15 sources) Nonsteroidal Anti-inflammatory Drug Start: 10-04-2017 End: 02-23-2020 take 1 tablet by mouth every six hours as needed for pain ibuprofen (IBU) 600 MG tablet Take 1 tablet by mouth every 6 hours as needed for Pain 120 tablet 0 10/04/2017 02/23/2020 Discontinued (LIST CLEANUP) Start: 07-10-2016 End: 02-23-2020 take 1 tablet by mouth every eight hours as needed for pain ibuprofen (ADVIL;MOTRIN) 600 MG tablet Take 1 tablet by mouth every 8 hours as needed for Pain 60 tablet 2 07/10/2016 02/23/2020 Discontinued (LIST CLEANUP) End: 01-23-2021 take 3 tablets by mouth every six hours as needed for pain ibuprofen (ADVIL;MOTRIN) 200 MG tablet Take 600 mg by mouth every 6 hours as needed for Pain 0 01/23/2021 Discontinued (LIST CLEANUP) 3 ml insulin glargine 100 unt/ml pen injector (16 sources) Insulin Analog Start: 03-27-2024 End: 03-10-2025 insulin glargine (Lantus SoloStar) 100 UNIT/ML pen Indications: Type 2 diabetes mellitus with hyperglycemia, with long-term current use of insulin ([facility]) Inject 40 Units under the skin at bedtime 36 mL 1 03/27/2024 09/11/2024 Discontinued (Reorder) Start: 01-21-2024 Insulin Glargi ne (Lantus Solostar U-100 Insulin) 100 unit/mL (3 mL) insulin pen Active 40 UNIT SUBCUT Daily at bedtime January 20, 2024 11:00pm Start: 09-10-2023 Lantus Solosta r U-100 Insulin 100 unit/mL (3 mL) pen 09/10/2023 Active 3 ml insulin glargine 100 unt/ml / lixisenatide 0.033 mg/ml pen injector (14 sources) Insulin Analog Start: 07-24-2023 End: 01-21-2024 inject 27 [IU] by subcutaneous injection once daily, then inject 31 [IU] by subcutaneous injection once daily Insulin Glargine-Lixisenatide 100 unit-33 mcg/mL insulin pen Discontinued 31 UNIT SUBCUT Daily July 24, 2023 2:21pm January 21, 2024 8:23am increase to 27 units daily for a week, then increase to 31 units daily Start: 07-24-2023 End: 07-24-2023 Insulin Glargine-Lixisenatid e 100 unit-33 mcg/mL insulin pen Discontinued 23 UNIT SUBCUT Daily July 24, 2023 12:00am July 24, 2023 2:22pm [employer] units Subcutaneous once a day; Note: Source Status: Start30 days; Refills: 3; Provider: Eagle Ventura Start: 07-02-2023 inject 23 [IU] by subcutaneous injection once daily Soliqua 100-33 UNT-MCG/ML 23 units Subcutaneous once a day for 30 days 30 days Jun, Active iopamidol (ISOVUE-370) 76 % injection 75 mL (2 sources) Start: 02-23-2020 End: 02-23-2020 iopamidol (ISOVUE-370) 76 % injection 75 mL Start: 02-21-2020 End: 02-21-2020 iopamidol (ISOVUE-370) 76 % injection 75 mL ketorolac tromethamine 10 mg oral tablet (9 sources) Nonsteroidal Anti-inflammatory Drug, Cyclooxygenase Inhibitor Start: 04-29-2023 End: 08-07-2023 take 1 tablet by mouth every six hours as needed for pain Ketorolac 10 mg tablet Discontinued 10 MG PO Q6H as needed for pain April 29, 2023 12:00am August 07, 2023 9:40am lurasidone hydrochloride 120 mg oral tablet (20 sources) Atypical Antipsychotic Start: 01-20-2022 End: 10-01-2023 take 1 tablet by mouth once daily Lurasidone (Latuda) 120 mg tablet Discontinued 120 MG PO Daily January 19, 2022 11:00pm April 29, 2023 12:55pm take 1 tablet by supriya th every twenty-four hours Latuda 60 MG 1 tablet in the evening with food Orally Once a day Active metoclopramide 5 mg oral tablet (13 sources) Dopamine-2 Receptor Antagonist Start: 07-10-2021 End: 01-20-2022 take 1 tablet by mouth 30 minutes before mealtime Metoclopramide Hcl (Reglan) 5 mg tablet Discontinued 5 MG PO before meals July 10, 2021 12:00am January 20, 2022 5:06am administer 30 minutes before meals mirtazapine 30 mg oral tablet (20 sources) Start: 09-04-2023 End: 10-06-2024 take 1 tablet by mouth once daily at bedtime Mirtazapine 30 mg tablet Discontinued 30 MG PO Daily at bedtime January 20, 2024 11:00pm June 04, 2024 2:33pm Start: 04-29-2023 End: 01-21-2024 mirtazapine (Remeron) 15 MG tablet Daily at bedtime 04/29/2023 Active 1 ml morphine sulfate 4 mg/ml cartridge (3 sources) Opioid Agonist Start: 01-23-2021 End: 01-23-2021 morphine injection 4 mg Start: 02-23-2020 End: 02-23-2020 morphine injection 4 mg Start: 02-21-2020 End: 02-21-2020 morphine injection 6 mg naproxen 500 mg oral tablet (15 sources) Nonsteroidal Anti-inflammatory Drug Start: 04-04-2022 End: 04-29-2023 take 1 tablet by mouth twice daily as needed for pain Naproxen 500 mg tablet Discontinued 500 MG PO Twice daily as needed for pain April 03, 2022 11:00pm April 29, 2023 12:55pm 24 hr nicotine 0.875 mg/hr transdermal system (13 sources) Cholinergic Nicotinic Agonist Start: 04-08-2020 End: 01-20-2022 apply 1 dose transdermal route every twenty-four hours Nicotine 21 mg/24 hr Patch 24 Hour Discontinued 1 EACH TRANSDERML Daily April 08, 2020 12:00am January 20, 2022 5:06am Start: 04-08-2020 End: 01-20-2022 Nicotine Discontinued 1 EACH TRANSDERML Daily April 08, 2020 1:00am January 20, 2022 6:06am ondansetron 4 mg disintegrating oral tablet (20 sources) Serotonin-3 Receptor Antagonist Start: 07-10-2021 End: 01-20-2022 take 1 tablet by mouth every six hours as needed for nausea and vomiting Ondansetron 4 mg tablet,disintegrating Discontinued 4 MG PO Q6H as needed for nausea and vomiting July 10, 2021 12:00am January 20, 2022 5:06am Start: 01-23-2021 End: 01-23-2021 ondansetron (ZOFRAN) injecti on 4 mg Start: 02-23-2020 End: 02-23-2020 ondansetron (ZOFRAN) injecti on 4 mg Start: 02-21-2020 End: 01-23-2021 take 1 tablet by mouth every eight hours as needed for nausea ondansetron (ZOFRAN ODT) 4 MG disintegrating tablet Take 1 tablet by mouth every 8 hours as needed for Nausea 8 tablet 0 02/23/2020 01/23/2021 Discontinued (LIST CLEANUP) Start: 02-21-2020 End: 02-21-2020 ondansetron (ZOFRAN) injecti on 4 mg 1 ml promethazine hydrochloride 25 mg/ml injection (1 source) Phenothiazine Start: 02-21-2020 End: 02-21-2020 promethazine (PHENERGAN) injection 25 mg SITagliptin 100 mg oral tablet (20 sources) Dipeptidyl Peptidase 4 Inhibitor Start: 10-13-2021 End: 10-01-2023 take 1 tablet by mouth once daily Sitagliptin Phosphate (Januvia) 100 mg tablet Discontinued 100 MG PO Daily January 19, 2022 11:00pm April 29, 2023 12:54pm 50 ml sodium chloride 9 mg/ml injection (3 sources) Start: 01-23-2021 End: 01-23-2021 0.9 % sodium chloride bolus Start: 02-23-2020 0.9 % sodium c hloride infusion Start: 02-21-2020 End: 02-21-2020 0.9 % sodium chloride bolus sulfamethoxazole 800 mg / trimethoprim 160 mg oral tablet (9 sources) Dihydrofolate Reductase Inhibitor Antibacterial, Sulfonamide Antimicrobial Start: 04-29-2023 End: 06-24-2023 take 1 tablet by mouth twice daily Sulfamethoxazole-Trimethoprim (Bactrim Ds) 800-160 mg tablet Discontinued 1 TAB PO Twice daily 22 03April 29, 2023 12:00am June 24, 2023 10:28am traZODone hydrochloride 50 mg oral tablet (18 sources) Serotonin Reuptake Inhibitor Start: 03-29-2020 End: 01-20-2022 Trazodone 50 mg tablet Discontinued 50 MG PO Bedtime as needed for Sleep March 28, 2020 11:00pm January 20, 2022 5:06am take 1 or 2 tabs End: 01-23-2021 take 1 tablet by mouth once daily traZODone (DESYREL) 100 MG tablet Take 100 mg by mouth nightly 0 01/23/2021 Discontinued (LIST CLEANUP) Problems Active Problems Problem Classification Problem Date Documented Da te Episodic/Chronic Abdominal pain (16 sources) Abdominal pain; Translations: [Left flank pain] Episodic Acute bronchitis (2 sources) Acute bronchitis; Translations: [Acute bronchitis, unspecified] 09-09-2024 Episodic Administrative/social admission (2 sources) Patient encounter status; Translations: [Dietary counseling and surveillance] 07-14-2024 Episodic Anxiety disorders (20 sources) Generalized anxiety disorder; Translations: [Generalized anxiety disorder] Onset: 07-13-2021 Resolved: 07-13-2021 Chronic Asthma (15 sources) Uncomplicated moderate persistent asthma; Translations: [Moderate persistent asthma, uncomplicated] Onset: 07-13-2021 Resolved: 01-24-2022 Chronic Chronic obstructive pulmonary disease and bronchiectasis (7 sources) Chronic obstructive pulmonary disease, unspecified; Translations: [Chronic obstructive lung disease] Onset: 07-12-2021 03-31-2024 Chronic Coronary atherosclerosis and other heart disease (20 sources) Coronary atherosclerosis; Translations: [Atherosclerotic heart disease of [place] coronary artery without angina pectoris] Onset: 01-24-2022 Resolved: 01-24-2022 Chronic Diabetes mellitus with complications (20 sources) Type 2 diabetes mellitus; Translations: [Type 2 diabetes mellitus with hyperglycemia] Onset: 07-13-2021 Resolved: 01-24-2022 Chronic Diabetes mellitus without complication (20 sources) Type 2 diabetes mellitus without complications; Translations: [Diabetes mellitus] Onset: 01-23-2022 01-20-2022 Chronic Diabetes mellitus without complication (8 sources) Impaired fasting glucose; Translations: [Hyperglycemia, unspecified] Onset: 07-12-2021 Resolved: 07-13-2021 Episodic Disorders of lipid metabolism (16 sources) Mixed hyperlipidemia; Translations: [Mixed hyperlipidemia] Onset: 01-24-2022 Resolved: 01-24-2022 Chronic Essential hypertension (20 sources) Essential hypertension; Translations: [Essential (primary) hypertension] Onset: 07-13-2021 Resolved: 01-24-2022 Chronic Genitourinary symptoms and ill-defined conditions (1 source) Frequency of micturition Episodic Headache; including migraine (4 sources) Headache; including migraine; Translations: [HEADACHE UNSPECIFIED] Onset: 07-11-2021 Hemorrhoids (1 source) Unspecified hemorrhoids Episodic Malaise and fatigue (11 sources) Fatigue; Translations: [Chronic fatigue, unspecified] Chronic Menstrual disorders (12 sources) Menometrorrhagia; Translations: [Excessive and frequent menstruation with irregular cycle] Onset: 01-31-2024 Chronic Miscellaneous mental health disorders (5 sources) Chronic insomnia; Translations: [Psychophysiologic insomnia] 03-31-2024 Chronic Mood disorders (20 sources) Major depressive disorder; Translations: [Recurrent major depression] 03-30-2020 Chronic Nausea and vomiting (18 sources) Nausea and vomiting; Translations: [Nausea with vomiting, unspecified] Onset: 07-12-2021 07-10-2021 Episodic Noninfectious gastroenteritis (1 source) Colitis; Translations: [Colitis] Episodic Nonspecific chest pain (19 sources) Chest pain, unspecified; Translations: [Chest pain] Onset: 01-19-2022 Episodic Nutritional deficiencies (2 sources) Vitamin D deficiency; Translations: [Vitamin D deficiency, unspecified] 07-14-2024 Chronic Other aftercare (1 source) Other keno terminal operator (current) drug therapy; Translations: [OTH CORRECTION CURRENT DRUG THERAPY] Onset: 01-23-2022 Episodic Other aftercare (2 sources) 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; Translations: [intermediate (current) use of insulin (Multi)] Onset: 03-13-2023 Episodic Other circulatory disease (4 sources) Other specified symptoms and signs involving the circulatory and respiratory systems; Translations: [OTH SPEC SX SIGNS INVLV CIRC RS] Onset: 11-07-2021 Episodic Other diseases of bladder and urethra (6 sources) Overactive bladder; Translations: [Overactive bladder] Chronic Other diseases of bladder and urethra (1 source) Overactive bladder Chronic Other female genital disorders (2 sources) Abnormal vaginal bleeding; Translations: [Abnormal uterine and vaginal bleeding, unspecified] 07-09-2023 Chronic Other gastrointestinal disorders (4 sources) Constipation; Translations: [Constipation, unspecified] Episodic Other gastrointestinal disorders (1 source) Constipation, unspecified Episodic Other hematologic conditions (2 sources) Erythrocytosis; Translations: [Secondary polycythemia] 03-31-2024 Episodic Other hematologic conditions (2 sources) Secondary polycythemia; Translations: [Polycythemia vera] 03-31-2024 Episodic Other hereditary and degenerative nervous system conditions (3 sources) Tardive dyskinesia; Translations: [Drug induced subacute dyskinesia] 03-31-2024 Episodic Other hereditary and degenerative nervous system conditions (2 sources) Drug induced subacute dyskinesia; Translations: [Subacute dyskinesia due to drugs] 03-31-2024 Episodic Other lower respiratory disease (2 sources) Cough; Translations: [Cough, unspecified type] 09-09-2024 Episodic Other nutritional; endocrine; and metabolic disorders (1 source) Obesity, unspecified; Translations: [OBESITY UNSPECIFIED] Onset: 07-12-2021 Chronic Other nutritional; endocrine; and metabolic disorders (3 sources) Body mass index (BMI) 45.0-49.9, adult; Translations: [BODY MASS INDEX BMI 45.0-49.9 ADULT] Onset: 07-12-2021 Chronic Other nutritional; endocrine; and metabolic disorders (7 sources) Body mass index 40+ - severely obese; Translations: [Morbid obesity] Onset: 10-01-2023 10-01-2023 Chronic Other nutritional; endocrine; and metabolic disorders (2 sources) Severe obesity; Translations: [Class 3 severe obesity due to excess calories with serious comorbidity and body mass index (BMI) of 45.0 to 49.9 in adult ([facility])] 07-14-2024 Chronic Other screening for suspected conditions (not mental disorders or infectious disease) (4 sources) Cancer cervix screening status; Translations: [Encounter for screening for malignant neoplasm of cervix] 07-09-2023 Episodic Other skin disorders (1 source) Hidradenitis suppurativa Episodic Residual codes; unclassified (3 sources) Sleep apnea; Translations: [Sleep apnea, unspecified] 03-31-2024 Chronic Residual codes; unclassified (2 sources) Sleep apnea, unspecified; Translations: [Unspecified sleep apnea] 03-31-2024 Chronic Residual codes; unclassified (13 sources) Tobacco user; Translations: [Tobacco use] 01-20-2022 Episodic Residual codes; unclassified (5 sources) Tobacco use; Translations: [Tobacco use disorder] 01-22-2022 Episodic Residual codes; unclassified (3 sources) Harmful pattern of use of nicotine; Translations: [Tobacco use] 03-31-2024 Episodic Residual codes; unclassified (3 sources) Localized edema; Translations: [Localized edema] Onset: 10-06-2024 10-06-2024 Episodic Residual codes; unclassified (1 source) Localized edema; Translations: [Localized edema] Onset: 10-06-2024 Episodic Skin and subcutaneous tissue infections (20 sources) Cellulitis and abscess of chest wall ; Translations: [Abscess or cellulitis of chest wall] 04-04-2022 Episodic Substance-related disorders (13 sources) Opioid withdrawal; Translations: [Opioid abuse, uncomplicated] Onset: 01-23-2022 10-01-2023 Chronic Comment on above: 1 PPD; Substance-related disorders (15 sources) Opioid abuse; Translations: [Opioid use, unspecified, uncomplicated] 03-30-2020 Episodic Past or Other Problems Problem Classification Problem Date Documented Da te Episodic/Chronic Abdominal hernia (7 sources) Umbilical hernia; Translations: [Umbilical hernia without obstruction or gangrene] Onset: 04-14-2016 04-14-2016 Episodic Acute myocardial infarction (20 sources) Non-ST elevation (NSTEMI) myocardial infarction; Translations: [Myocardial infarction] Onset: 01-23-2022 Resolved: 10-01-2023 01-20-2022 Chronic Other lower respiratory disease (4 sources) Pleurodynia; Translations: [PLEURODYNIA] Onset: 03-06-2021 Episodic Other lower respiratory disease (1 source) Dyspnea, unspecified; Translations: [Dyspnea, unspecified] Onset: 06-04-2024 Episodic Suicide and intentional self-inflicted injury (1 source) Suicidal thoughts; Translations: [Suicidal ideation] Episodic Results Test Name Value Interpretation Reference Range Facility No Panel Informationon 09-09 Interpretation and review of laboratory results Normal [facility] RESULT 1 Negative Negatvie [facility] RESULT 2 Negative Negatvie [facility] Glucose (Bld) [Mass/Vol]Orde red By: Adilene Greene on 07-14-2024 Glucose Blood, POC 171 mg/dL [facility] Laboratory - Hematology and Cell countson 07-14-2024 HbA1c (Bld) [Mass fraction] 11.3 % [facility] No Panel InformationOrdered By: Adilene Greene on 07-14-2024 [facility] B-Type Natriuretic Peptideon 06-04-2024 Natriuretic peptide B (Bld) [Mass/Vol] 42.0 pg/mL Normal 5-100 [facility] Comment on above: Result Comment: PERF ORMED BY: [place] [address] PATHOLOGIST BREAKER TENDER ROSHNI RAINES M.D. Performed By: #### P T, CBC, BMP, HS TROP, PTT, BNP #### [address] Basic Metabolic Panelon Anion gap [Moles/Vol] 10.4 mmol/L Normal 6.0-15.0 Th e [facility] Comment on above: Performed By: #### P T, CBC, BMP, HS TROP, PTT, BNP #### [address] Calcium [Mass/Vol] 8.9 mg/dL Normal 8.6-10.3 [facility] Comment on above: Performed By: #### P T, CBC, BMP, HS TROP, PTT, BNP #### [address] Chloride [Moles/Vol] 102 mmol/L Normal 98-107 [facility] Comment on above: Performed By: #### P T, CBC, BMP, HS TROP, PTT, BNP #### [address] [place] [address] [place] CO2 [Moles/Vol] 27.6 mmol/L Normal 21.0-31.0 [facility] Comment on above: Performed By: #### P T, CBC, BMP, HS TROP, PTT, BNP #### [facility] [address] [place] [address] [place] Creatinine [Mass/Vol] 0.64 mg/dL Normal 0.60-1.20 [facility] Comment on above: Performed By: #### P T, CBC, BMP, HS TROP, PTT, BNP #### [facility] [address] [place] [address] [place] Creatinine Clr Calc Pharmacy 144.54 Normal [facility] [facility] Comment on above: Result Comment: PERF ORMED BY: [place] [address] PATHOLOGIST BREAKER TENDER ROSHNI RAINES M.D. Performed By: #### P T, CBC, BMP, HS TROP, PTT, BNP #### [place] [address] [place] GFR/1.73 sq M.predicted MDRD (S/P/Bld) [Vol rate/Area] mL/min/{1.73_m2} Normal [facility] Comment on above: Performed By: #### P T, CBC, BMP, HS TROP, PTT, BNP #### [address] Glucose [Mass/Vol] 252 mg/dL High 70-100 [facility] Comment on above: Result Comment: [place] Glucose Reference Range is dependent on time and content of last meal. Glucose of more than 200 mg/dL in a nonstressed, ambulatory subject supports the diagnosis of Diabetes Mellitus. ADA recommended reference range Performed By: #### P T, CBC, BMP, HS TROP, PTT, BNP #### [facility] [address] [place] [address] [place] Potassium [Moles/Vol] 4.0 mmol/L Normal 3.5-5.1 [facility] Comment on above: Performed By: #### P T, CBC, BMP, HS TROP, PTT, BNP #### [facility] [address] [place] [address] [place] Sodium [Moles/Vol] 136 mmol/L Normal 136-145 [facility] Comment on above: Performed By: #### P T, CBC, BMP, HS TROP, PTT, BNP #### [facility] [address] Urea nitrogen [Mass/Vol] 11 mg/dL Normal 7-25 [facility] Comment on above: Performed By: #### P T, CBC, BMP, HS TROP, PTT, BNP #### [facility] [address] [place] [address] [place] Basophils Auto (Bld) [#/Vol] Ordered By: Earnestine Alonso on 06-04-2024 Basophils (Bld) [#/Vol] Automated basophil count 0.0-0.2 [facility] Basophils/100 WBC Auto (Bld) Ordered By: Earnestine Alonso on 06-04-2024 Basophils/100 WBC (Bld) Automated basophil % . [facility] COVID Cepheid NegativeOrdere d By: Earnestine Alonso on 06-04-2024 SARS-CoV-2 (COVID-19) Ab IA Ql COVID Cepheid Negative [facility] Comment on above: This is a duplicate Cepheid Xpert Xpress CoV-2/Flu/RSV Plus RNA by RT-PCR result to be used for statistical tracking purpose only. COVID-19 / Flu A/B / RSV PCR on 06-04-2024 SARS-CoV-2 (COVID-19) RNA HARJINDER+probe Ql (Unsp spec) COVID-19 Cepheid Result Negative for SARS-CoV-2 RNA by RT-PCR Flu A Cepheid Result Negative for Flu A RNA by RT-PCR Flu B Cepheid Result Negative for Flu B RNA by RT-PCR RSV Cepheid Result Negative for RSV RNA by RT-PCR COVID19 Blank Space ---- Reference: Negative COVID19 Blank Space ---- Cepheid Disclaimer The Cepheid Xpert Xpress CoV-2/Flu/RSV Plus has Cepheid Disclaimer not been FDA cleared or approved; this test has Cepheid Disclaimer been authorized by FDA under an EUA for use by Cepheid Disclaimer authorized laboratories; this test has been Cepheid Disclaimer authorized only for the simultaneous qualitative Cepheid Disclaimer detection and differentiation of nucleic acids from Cepheid Disclaimer SARS-CoV-2, influenza A, influenza B, and Cepheid Disclaimer respiratory syncytial virus (RSV), and not for any Cepheid Disclaimer other viruses or pathogens; and this test is only Cepheid Disclaimer authorized for the duration of the declaration that Cepheid Disclaimer circumstances exist justifying the authorization of Cepheid Disclaimer emergency use of in vitro diagnostic tests for Cepheid Disclaimer detection and/or diagnosis of COVID-19 under Cepheid Disclaimer Section 564(b)(1) of the Act, 21 U.S.C. 360bbb- Cepheid Disclaimer 3(b)(1), unless the authorization is terminated or Cepheid Disclaimer revoked sooner. PERFORMED BY: [place] [address] PATHOLOGIST BREAKER TENDER ROSHNI RAINES M.D. Normal [facility] Comment on above: Performed By: #### P T, CBC, BMP, HS TROP, PTT, BNP #### [facility] [address] Calcium [Mass/volume] in Ser um or PlasmaOrdered By: Earnestine Alonso on 06-04-2024 Calcium [Mass/Vol] Calcium [Mass/volume ] in Serum or Plasma 8.6-10.3 [facility] Carbon dioxide, total [Moles /volume] in Serum or PlasmaOrdered By: Earnestine Alonso on 01-02-2025 CO2 [Moles/Vol] Carbon dioxide, tota l [Moles/volume] in Serum or Plasma 21.0-31.0 [facility] Cepheid COVID PCR Negativeon 06-04-2024 SARS-CoV-2 (COVID-19) RNA HARJINDER+probe Ql (Unsp spec) Negative Normal Negative [facility] Comment on above: Result Comment: This is a duplicate Cepheid Xpert Xpress CoV-2/Flu/RSV Plus RNA by RT-PCR result to be used for statistical tracking purpose only. PERFORMED BY: [place] [address] PATHOLOGIST BREAKER TENDER ROSHNI RAINES M.D. Performed By: #### P T, CBC, BMP, HS TROP, PTT, BNP #### [place] [address] [place] Chloride [Moles/volume] in S zaria or PlasmaOrdered By: Earnestine Alonso on 06-04-2024 Chloride [Moles/Vol] Chloride [Moles/vol ume] in Serum or Plasma 98-107 [facility] Complete Blood Count Auto Di ffon 06-04-2024 Basophils (Bld) [#/Vol] 0.1 10*3/uL Normal 0.0-0.2 [facility] Comment on above: Result Comment: PERF ORMED BY: [place] [address] PATHOLOGIST BREAKER TENDER ROSHNI RAINES M.D. Performed By: #### P T, CBC, BMP, HS TROP, PTT, BNP #### [place] [address] [place] Basophils/100 WBC (Bld) 1.3 % Normal . [facility] Comment on above: Performed By: #### P T, CBC, BMP, HS TROP, PTT, BNP #### [place] [address] [place] Eosinophils (Bld) [#/Vol] 0.2 10*3/uL Normal 0.0-0.45 [facility] Comment on above: Performed By: #### P T, CBC, BMP, HS TROP, PTT, BNP #### [address] Eosinophils/100 WBC (Bld) 2.1 % Normal . [facility] Comment on above: Performed By: #### P T, CBC, BMP, HS TROP, PTT, BNP #### [address] Erythrocyte distribution width (RBC) [Ratio] 13.5 % Normal 11.9-15.3 [facility] Comment on above: Performed By: #### P T, CBC, BMP, HS TROP, PTT, BNP #### [address] Hematocrit (Bld) [Volume fraction] 46.0 % Normal 34.0-46.4 [facility] Comment on above: Performed By: #### P T, CBC, BMP, HS TROP, PTT, BNP #### [address] Hemoglobin (Bld) [Mass/Vol] 16.1 g/dL High 11.8-15.4 [facility] Comment on above: Performed By: #### P T, CBC, BMP, HS TROP, PTT, BNP #### [address] Lymphocytes (Bld) [#/Vol] 2.2 10*3/uL Normal 1.00-4.8 [facility] Comment on above: Performed By: #### P T, CBC, BMP, HS TROP, PTT, BNP #### [address] Lymphocytes/100 WBC (Bld) 21.8 % Normal . [facility] Comment on above: Performed By: #### P T, CBC, BMP, HS TROP, PTT, BNP #### [address] MCH (RBC) [Entitic mass] 31.1 pg Normal 24.7-34.3 [facility] Comment on above: Performed By: #### P T, CBC, BMP, HS TROP, PTT, BNP #### [address] MCV (RBC) [Entitic vol] 89.0 fL Normal 80-100 [facility] Comment on above: Performed By: #### P T, CBC, BMP, HS TROP, PTT, BNP #### [address] Mean Corpuscular HGB Conc 35.0 g/dL Normal 32.0-35.0 [facility] Comment on above: Performed By: #### P T, CBC, BMP, HS TROP, PTT, BNP #### [address] Monocytes (Bld) [#/Vol] 0.6 10*3/uL Normal 0.0-0.8 [facility] Comment on above: Performed By: #### P T, CBC, BMP, HS TROP, PTT, BNP #### [address] Monocytes/100 WBC (Bld) 17.45 % Normal 0.00-20.00 [facility] Comment on above: Performed By: #### P T, CBC, BMP, HS TROP, PTT, BNP #### [address] Monocytes/100 WBC (Bld) 5.7 % Normal . [facility] Comment on above: Performed By: #### P T, CBC, BMP, HS TROP, PTT, BNP #### [address] Neutrophils (Bld) [#/Vol] 6.9 10*3/uL Normal 1.8-7.7 [facility] Comment on above: Performed By: #### P T, CBC, BMP, HS TROP, PTT, BNP #### [address] Neutrophils/100 WBC (Bld) 69.1 % Normal . [facility] Comment on above: Performed By: #### P T, CBC, BMP, HS TROP, PTT, BNP #### [address] [place] [address] [place] NRBC% 0.1 /100{WBC} Normal 0-0.5 The [facility] Comment on above: Performed By: #### P T, CBC, BMP, HS TROP, PTT, BNP #### [address] Platelet mean volume (Bld) [Entitic vol] 7.2 fL Normal 6.3-10.7 The [facility] Comment on above: Performed By: #### P T, CBC, BMP, HS TROP, PTT, BNP #### [address] Platelets (Bld) [#/Vol] 296 10*3/uL Normal 150-450 [facility] Comment on above: Performed By: #### P T, CBC, BMP, HS TROP, PTT, BNP #### [address] RBC (Bld) [#/Vol] 5.17 10*6/uL High 3.60-5.00 The [facility] Comment on above: Performed By: #### P T, CBC, BMP, HS TROP, PTT, BNP #### [address] WBC (Bld) [#/Vol] 9.9 10*3/uL Normal 3.8-11.6 [facility] Comment on above: Performed By: #### P T, CBC, BMP, HS TROP, PTT, BNP #### [address] Creatinine [Mass/volume] in Serum or PlasmaOrdered By: Earnestine Alonso on 06-04-2024 Creatinine [Mass/Vol] Creatinine [Mass/v olume] in Serum or Plasma 0.60-1.20 [facility] ECG 12 lead ECGon 06-04-2024 ECG 12 lead ECG [facility] Main [place] [address] [place] [address] Electrocardiograph Report Signed Patient: Natividad Bonner MR#: [id number] : 1985 Acct:[id number] Age/Sex: 38 / F ADM Date: 06/04/24 Loc: ER Room: Type: [facility] ER Attending Dr: Ordering Provider: Earnestine Alonso APRN Date of Service: 06/04/2407/28/1745 ECG/ECG 12 lead ECG: Shortness of Breath/Dyspnea Copies to: Test Reason : Blood Pressure : */* mmHG Vent. Rate : 81 BPM Atrial Rate : 81 BPM P-R Int : 154 ms QRS Dur : 88 ms QT Int : 378 ms P-R-T Axes : 65 71 72 degrees QTcB Int : 439 ms Normal sinus rhythm Confirmed by Chandan James DO ([id number]) on 06/05/2024 1:03:54 AM Referred By: Electronically Signed By: Chandan James DO Transcribed By: MUS Signed By Chandan James DO 0103 Normal [facility] ECG 12 lead ECG [facility] [place] [address] Electrocardiograph Report Signed Patient: Natividad Bonner MR#: [id number] : 1985 Acct:[id number] Age/Sex: 38 / F ADM Date: 06/04/24 Loc: ER Room: Type: [facility] ER Attending Dr: Ordering Provider: Earnestine Alonso APRN Date of Service: 06/04/2407/28/1430 ECG/ECG 12 lead ECG: Shortness of Breath/Dyspnea Copies to: Test Reason : Blood Pressure : */* mmHG Vent. Rate : 85 BPM Atrial Rate : 85 BPM P-R Int : 154 ms QRS Dur : 84 ms QT Int : 366 ms P-R-T Axes : 60 67 69 degrees QTcB Int : 435 ms Normal sinus rhythm Confirmed by Chandan James DO ([id number]) on 06/05/2024 1:04:30 AM Referred By: Electronically Signed By: Chandan James DO Transcribed By: MUS Signed By Chandan James DO 0104 Normal [facility] Eosinophils Auto (Bld) [#/Vo l]Ordered By: Earnestine Alonso on 06-04-2024 Eosinophils (Bld) [#/Vol] Automated eosinophil count 0.0-0.45 [facility] Eosinophils/100 WBC Auto (Bl d)Ordered By: Earnestine Alonso on 06-04-2024 Eosinophils/100 WBC (Bld) Automated eosinophil % . [facility] Erythrocyte distribution wid th Auto (RBC) [Ratio]Ordered By: Earnestine Alonso on 06-04-2024 Erythrocyte distribution width (RBC) [Ratio] Erythrocyte distribution width [Ratio] by Automated count 11.9-15.3 [facility] Glucose [Mass/volume] in Ser um or PlasmaOrdered By: Earnestine Alonso on 06-04-2024 Glucose [Mass/Vol] Glucose [Mass/volume ] in Serum or Plasma High 70-100 [facility] Comment on above: ADA recommended refe rence rangeRandom Glucose Reference Range is dependent on time and content of last meal. Glucose of more than 200 mg/dL in a nonstressed, ambulatory subject supports the diagnosis of Diabetes Mellitus. Hematocrit Auto (Bld) [Volum e fraction]Ordered By: Earnestine Alonso on 06-04-2024 Hematocrit (Bld) [Volume fraction] Hematocrit [Volume Fraction] of Blood by Automated count 34.0-46.4 [facility] Hemoglobin [Mass/volume] in BloodOrdered By: Earnestine Alonso on 06-04-2024 Hemoglobin (Bld) [Mass/Vol] Hemoglobin [Mass/volume] in Blood High 11.8-15.4 [facility] INR in Platelet poor plasma by Coagulation assayOrdered By: Earnestine Alonso on 06-04-2024 INR Coag (PPP) [Relative time] INR in Platelet poor plasma by Coagulation assay [facility] Comment on above: INR Therapeutic Rang e A) Pre- and Peroperative OAT started two weeks before surgery. NOT HIP SURGERY: 1.5 - 2.5 HIP SURGERY: 2 - 3B) Primary and secondary prevention of venous THROMBOSIS: 2 - 3C) Active venous thrombosis, pulmonary embolismand prevention of recurrent venous thrombosis: 2 - 3D) Prevention of arterial thromboembolismincluding patients with mechanical heart valves: 3 - 4.5 Leukocytes [#/volume] correc jacy for nucleated erythrocytes in Blood by Automated counOrdered By: Earnestine Alonso on 06-04-2024 WBC corrected for nucl RBC Auto (Bld) [#/Vol] Leukocytes [#/volume] corrected for nucleated erythrocytes in Blood by Automated coun 3.8-11.6 [facility] Lymphocytes Auto (Bld) [#/Vo l]Ordered By: Earnestine Alonso on 06-04-2024 Lymphocytes (Bld) [#/Vol] Lymphocytes [#/volume] in Blood by Automated count 1.00-4.8 [facility] Lymphocytes/100 WBC Auto (Bl d)Ordered By: Earnestine Alonso on 06-04-2024 Lymphocytes/100 WBC (Bld) Lymphocytes/100 leukocytes in Blood by Automated count . [facility] MCH Auto (RBC) [Entitic mass ]Ordered By: Earnestine Alonso on 06-04-2024 MCH (RBC) [Entitic mass] MCH [Entitic mass] by Automated count 24.7-34.3 [facility] MCHC Auto (RBC) [Mass/Vol]Or dered By: Earnestine Alonso on 06-04-2024 MCHC (RBC) [Mass/Vol] MCHC [Mass/volume] by Automated count 32.0-35.0 [facility] MCV Auto (RBC) [Entitic vol] Ordered By: Earnestine Alonso on 06-04-2024 MCV (RBC) [Entitic vol] MCV [Entitic volume] by Automated count 80-100 [facility] Monocyte distribution width [Entitic volume] in Blood by AutomatedOrdered By: Earnestine Alonso on 06-04-2024 Monocyte distribution width Auto (Bld) [Entitic vol] Monocyte distribution width [Entitic volume] in Blood by Automated 0.00-20.00 [facility] Monocytes Auto (Bld) [#/Vol] Ordered By: Earnestine Alonso on 06-04-2024 Monocytes (Bld) [#/Vol] Automated blood monocyte count 0.0-0.8 [facility] Monocytes/100 WBC Auto (Bld) Ordered By: Earnestine Alonso on 06-04-2024 Monocytes/100 WBC (Bld) Automated monocyte % . [facility] Natriuretic peptide B [Mass/ Vol]Ordered By: Earnestine Alonso on 06-04-2024 Natriuretic peptide B (Bld) [Mass/Vol] BNP ser/plas 5-100 [facility] Neutrophils Auto (Bld) [#/Vo l]Ordered By: Earnestine Alonso on 06-04-2024 Neutrophils (Bld) [#/Vol] Neutrophils [#/volume] in Blood by Automated count 1.8-7.7 [facility] Neutrophils/100 WBC Auto (Bl d)Ordered By: Earnestine Alonso on 06-04-2024 Neutrophils/100 WBC (Bld) Automated neutrophil % . [facility] No Panel InformationOrdered By: Earnestine Alonso on 06-04-2024 Estimated GFR (CKD-EPI) > 60.0 mL/Min [facility] Creatinine Clearance (Chem 144.54 [facility] Nucleated erythrocytes [Pres ence] in Blood by Automated countOrdered By: Earnestine Alonso on 06-04-2024 Nucleated RBC Auto Ql (Bld) Nucleated erythrocytes [Presence] in Blood by Automated count 0-0.5 [facility] Partial Thromboplastin Timeo n 06-04-2024 aPTT Coag (Bld) [Time] 29.7 s Normal 25.1-36.5 Th e [facility] Comment on above: Result Comment: A he matocrit value greater than 55% may lead to inaccurate results in coagulation testing. Patients having hematocrit values >55% require a special collection tube for coagulation studies. Please contact the laboratory at [phone] for redraw instructions. PERFORMED BY: [place] [id number] PATHOLOGIST BREAKER TENDER ROSHNI RAINES M.D. Performed By: #### P T, CBC, BMP, HS TROP, PTT, BNP #### [place] [id number] [facility] Platelet mean volume Auto (B ld) [Entitic vol]Ordered By: Earnestine Alonso on 06-04-2024 Platelet mean volume (Bld) [Entitic vol] Platelet mean volume [Entitic volume] in Blood by Automated count 6.3-10.7 [facility] Platelets Auto (Bld) [#/Vol] Ordered By: Earnestine Alonso on 06-04-2024 Platelets (Bld) [#/Vol] Platelets [#/volume] in Blood by Automated count 150-450 [facility] Potassium [Moles/volume] in Serum or PlasmaOrdered By: Earnestine Alonso on 06-04-2024 Potassium [Moles/Vol] Potassium [Moles/v olume] in Serum or Plasma 3.5-5.1 [facility] Prothrombin Time INRon 06-04 INR Coag (PPP) [Relative time] 0.9 {INR} Normal [facility] Comment on above: Result Comment: INR Therapeutic Range A) Pre- and Peroperative OAT started two weeks before surgery. NOT HIP SURGERY: 1.5 - 2.5 HIP SURGERY: 2 - 3 B) Primary and secondary prevention of venous THROMBOSIS: 2 - 3 C) Active venous thrombosis, pulmonary embolism and prevention of recurrent venous thrombosis: 2 - 3 D) Prevention of arterial thromboembolism including patients with mechanical heart valves: 3 - 4.5 Performed By: #### P T, CBC, BMP, HS TROP, PTT, BNP #### [facility] [address] [place] [id number] [facility] PT Coag (PPP) [Time] 10.6 s Normal 9.0-12.9 [facility] Comment on above: Result Comment: A he matocrit value greater than 55% may lead to inaccurate results in coagulation testing. Patients having hematocrit values >55% require a special collection tube for coagulation studies. Please contact the laboratory at [phone] for redraw instructions. Performed By: #### P T, CBC, BMP, HS TROP, PTT, BNP #### [facility] [address] [place] [address] [facility] Prothrombin time (PT)Ordered By: Earnestine Alonso on 06-04-2024 PT Coag (PPP) [Time] Prothrombin time (PT) 9.0- 12.9 [facility] Comment on above: A hematocrit value g reater than 55% may lead to inaccurate results in coagulation testing. Patients having hematocrit values >55% require a special collection tube for coagulation studies. Please contact the laboratory at [phone] for redraw instructions. RBC Auto (Bld) [#/Vol]Ordere d By: Earnestine Alonso on 06-04-2024 RBC (Bld) [#/Vol] Erythrocytes [#/volu me] in Blood by Automated count High 3.60-5.00 [facility] Respiratory specimen influen za A virus, influenza B virus, respiratory syncytical virOrdered By: Earnestine Alonso on 06-04-2024 SARS-CoV-2 (COVID-19) RNA HARJINDER+probe Ql (Unsp spec) Respiratory specimen influenza A virus, influenza B virus, respiratory syncytical vir [facility] Serum or plasma anion gap de terminationOrdered By: Earnestine Alonso on 06-04-2024 Anion gap [Moles/Vol] Serum or plasma an ion gap determination 6.0-15.0 [facility] Sodium [Moles/volume] in Ser um or PlasmaOrdered By: Earnestine Alonso on 06-04-2024 Sodium [Moles/Vol] Sodium [Moles/volume ] in Serum or Plasma 136-145 [facility] Troponin I High Sensitivityo n 06-04-2024 Troponin I High Sensitivity 2.8 pg/mL Normal 0.0-15.0 [facility] Comment on above: Result Comment: PERF ORMED BY: [place] [address] PATHOLOGIST BREAKER TENDER ROSHNI RAINES M.D. Performed By: #### P T, CBC, BMP, HS TROP, PTT, BNP #### [address] Troponin I.cardiac [Mass/vol ume] in Serum or Plasma by Detection limit <= 0.01 ng/Ordered By: Earnestine Alonso on 06-04-2024 Troponin I.cardiac DL <= 0.01 ng/mL [Mass/Vol] Troponin I.cardiac [Mass/volume] in Serum or Plasma by Detection limit <= 0.01 ng/ 0.0-15.0 [facility] Urea nitrogen [Mass/volume] in Serum or PlasmaOrdered By: Earnestine Alonso on 06-04-2024 Urea nitrogen [Mass/Vol] Urea nitrogen [Mass/volume] in Serum or Plasma 7-25 [facility] WBC Auto (Bld) [#/Vol]Ordere d By: Earnestine Alonso on 06-04-2024 WBC (Bld) [#/Vol] Leukocytes [#/volume ] in Blood by Automated count 3.8-11.6 [facility] X-ray reportOrdered By: Lupe Landry on 06-04-2024 Study report [facility] Main [address] [address] XRay Report Signed Patient: Natividad Bonner MR#: [id number] : 1985 Acct:[id number] Age/Sex: 38 / F ADM Date: 5 Loc: ER Room: Type: PRE ER Attending Dr: Copies to: Earnestine Alonso APRN~ Ordering Provider: Earnestine Alonso APRN Date of Service: 06/04/24 XR/XR chest 2V*: Shortness of Breath/Dyspnea XR chest 2V* 06/04/2024 3:48 PM SIGNS AND SYMPTOMS: Cough, wheezing, headaches PROTOCOL: Frontal and lateral graphs of the chest COMPARISON: 04/04/2022 FINDINGS: The trachea is midline. The heart and mediastinal structures are within normal limits. The lung parenchyma is clear. The bony thorax is intact. XR/XR chest 2V* IMPRESSION: No acute cardiopulmonary pathology. Impression dictated by: Lupe Landry M.D.06/04/2024 5:23 PM Dictation Location: [place] [address] Transcribed By: [facility] 06/04/24 172 Dictated By: Lupe Landry II, MD 06/04/24 172 Signed By: 06/04/24 1723 [facility] Work Phone: XR chest 2V*on 06-04-2024 XR chest 2V* [address] [address] XRay Report Signed Patient: Natividad Bonner MR#: [id number] : 1985 Acct:[id number] Age/Sex: 38 / F ADM Date: 06/04/24 Loc: ER Room: Type: PRE ER Attending Dr: Copies to: Earnestine Alonso APRN Ordering Provider: Earnestine Alonso APRN Date of Service: 06/04/24 XR/XR chest 2V*: Shortness of Breath/Dyspnea XR chest 2V* 06/04/2024 3:48 PM SIGNS AND SYMPTOMS: Cough, wheezing, headaches PROTOCOL: Frontal and lateral graphs of the chest COMPARISON: 04/04/2022 FINDINGS: The trachea is midline. The heart and mediastinal structures are within normal limits. The lung parenchyma is clear. The bony thorax is intact. XR/XR chest 2V* IMPRESSION: No acute cardiopulmonary pathology. Impression dictated by: Lupe Landry M.D.06/04/2024 5:23 PM Dictation Location: [place] [address] Transcribed By: [facility] 06/04/24 1723 Dictated By: Lupe Landry II, MD 06/04/24 172 Signed By: 06/04/24 1723 Normal [facility] aPTT in Platelet poor plasma by Coagulation assayOrdered By: Earnestine Alonso on 06-04-2024 aPTT Coag (PPP) [Time] Activated partial thromboplastin time (aPTT) in platelet poor plasma by coagulation a 25.1-36.5 [facility] Comment on above: A hematocrit value g reater than 55% may lead to inaccurate results in coagulation testing. Patients having hematocrit values >55% require a special collection tube for coagulation studies. Please contact the laboratory at [phone] for redraw instructions. Alanine aminotransferase [En zymatic activity/volume] in Serum or PlasmaOrdered By: Molly Elaine on 03-31-2024 ALT [Catalytic activity/Vol] 17 U/L Normal [address] [place] [address] Comment on above: Order Comment: ADDI MORGANW Performed By: #### P T, CBC, BMP, HS TROP, PTT, BNP #### [address] ALT [Catalytic activity/Vol] Alanine aminotransferase [Enzymatic activity/volume] in Serum or Plasma [facility] Albumin [Mass/volume] in Ser um or Plasma by Bromocresol green (BCG) dye binding methoOrdered By: Molly Maerena on 03-31-2024 Albumin BCG dye [Mass/Vol] 4.1 g/dL 3.5-5.7 [facility] Albumin BCG dye [Mass/Vol] Albumin [Mass/volume] in Serum or Plasma by Bromocresol green (BCG) dye binding metho 3.5-5.7 [facility] Alkaline phosphatase [Enzyma tic activity/volume] in Serum or PlasmaOrdered By: Molly Maerena on 03-31-2024 ALP [Catalytic activity/Vol] 80 U/L Normal 34-104 [facility] Comment on above: Order Comment: FASTSonya ANGELA. JKW Result Comment: PERF ORMED BY: [place] [address] PATHOLOGIST BREAKER TENDER EFRA RING M.D. Performed By: #### P T, CBC, BMP, HS TROP, PTT, BNP #### [address] ALP [Catalytic activity/Vol] Alkaline phosphatase [Enzymatic activity/volume] in Serum or Plasma 34-104 [facility] Aspartate aminotransferase [ Enzymatic activity/volume] in Serum or PlasmaOrdered By: Molly Maerena on 03-31-2024 AST [Catalytic activity/Vol] 14 U/L Normal 13-39 [facility] Comment on above: Order Comment: FASTSonya ANGELA. JKW Performed By: #### P T, CBC, BMP, HS TROP, PTT, BNP #### [facility] [address] [place] [address] AST [Catalytic activity/Vol] Aspartate aminotransferase [Enzymatic activity/volume] in Serum or Plasma 13-39 [facility] Automated basophil %Ordered By: Molly Maerena on 03-31-2024 Basophils/100 WBC (Bld) 1.2 % Normal . [facility] Comment on above: Order Comment: FASTI JULIO CÉSAR. JKW Performed By: #### P T, CBC, BMP, HS TROP, PTT, BNP #### [facility] [address] [place] [address] Automated basophil countOrde red By: Molly Maerena on 03-31-2024 Basophils (Bld) [#/Vol] 0.1 10*3/uL Normal 0.0-0.2 [facility] Comment on above: Order Comment: FASTI NG. JKW Result Comment: PERF ORMED BY: [place] [address] PATHOLOGIST BREAKER TENDER EFRA RING M.D. Performed By: #### P T, CBC, BMP, HS TROP, PTT, BNP #### [address] Automated blood monocyte cou ntOrdered By: Molly Chele on 03-31-2024 Monocytes (Bld) [#/Vol] 0.5 10*3/uL Normal 0.0-0.8 [facility] Comment on above: Order Comment: FASTI NG. JKW Performed By: #### P T, CBC, BMP, HS TROP, PTT, BNP #### [address] Automated eosinophil %Ordere d By: Molly Chele on 03-31-2024 Eosinophils/100 WBC (Bld) 2.2 % Normal . [facility] Comment on above: Order Comment: FASTI NG. JKW Performed By: #### P T, CBC, BMP, HS TROP, PTT, BNP #### [address] Automated eosinophil countOr dered By: Molly Maerena on 03-31-2024 Eosinophils (Bld) [#/Vol] 0.2 10*3/uL Normal 0.0-0.45 [facility] Comment on above: Order Comment: FASTI NG. JKW Performed By: #### P T, CBC, BMP, HS TROP, PTT, BNP #### [address] Automated monocyte %Ordered By: Molly Chele on 03-31-2024 Monocytes/100 WBC (Bld) 5.2 % Normal . [facility] Comment on above: Order Comment: FASTI NG. JKW Performed By: #### P T, CBC, BMP, HS TROP, PTT, BNP #### [facility] [address] Automated neutrophil %Ordere d By: Molly Chele on 03-31-2024 Neutrophils/100 WBC (Bld) 62.4 % Normal . [facility] Comment on above: Order Comment: ADDI ANGELA. JKW Performed By: #### P T, CBC, BMP, HS TROP, PTT, BNP #### [facility] [address] [place] [address] [place] Basophils Auto (Bld) [#/Vol] Ordered By: Molly Chele on 03-31-2024 Basophils (Bld) [#/Vol] Automated basophil count 0.0-0.2 [facility] Basophils/100 WBC Auto (Bld) Ordered By: Molly Elaine on 03-31-2024 Basophils/100 WBC (Bld) Automated basophil % . [facility] Bilirubin.total [Mass/volume ] in Serum or PlasmaOrdered By: Molly Elaine on 03-31-2024 Bilirubin [Mass/Vol] 0.3 mg/dL Normal 0.3-1.0 [facility] Comment on above: Order Comment: ADDI ANGELA. JKW Performed By: #### P T, CBC, BMP, HS TROP, PTT, BNP #### [address] Bilirubin [Mass/Vol] Bilirubin.total [Mass/volume] in Serum or Plasma 0.3-1.0 [facility] Calcium [Mass/volume] in Ser um or PlasmaOrdered By: Molly Elaine on 03-31-2024 Calcium [Mass/Vol] 8.8 mg/dL Normal 8.6-10.3 [facility] Comment on above: Order Comment: ADDI ANGELA. JKW Performed By: #### P T, CBC, BMP, HS TROP, PTT, BNP #### [address] Calcium [Mass/Vol] Calcium [Mass/volume ] in Serum or Plasma 8.6-10.3 [facility] Carbon dioxide, total [Moles /volume] in Serum or PlasmaOrdered By: Molly Chele on 03-31-2024 CO2 [Moles/Vol] 24.4 mmol/L Normal 21.0-31.0 [facility] Comment on above: Order Comment: FASTI NG. JKW Performed By: #### P T, CBC, BMP, HS TROP, PTT, BNP #### [facility] [address] CO2 [Moles/Vol] Carbon dioxide, tota l [Moles/volume] in Serum or Plasma 21.0-31.0 [facility] Chloride [Moles/volume] in S zaria or PlasmaOrdered By: Molly Chele on 03-31-2024 Chloride [Moles/Vol] 103 mmol/L Normal 98-107 [facility] Comment on above: Order Comment: FASTI NG. JKW Performed By: #### P T, CBC, BMP, HS TROP, PTT, BNP #### [address] Chloride [Moles/Vol] Chloride [Moles/vol ume] in Serum or Plasma 98-107 [facility] Complete Blood Count Auto Di ffon 03-31-2024 Mean Corpuscular HGB Conc 34.6 g/dL Normal 32.0-35.0 [facility] Comment on above: Order Comment: FASTI NG. JKW Performed By: #### P T, CBC, BMP, HS TROP, PTT, BNP #### [facility] [address] NRBC% 0.1 /100{WBC} Normal 0-0.5 [facility] Comment on above: Order Comment: FASTI NG. JKW Performed By: #### P T, CBC, BMP, HS TROP, PTT, BNP #### [facility] [address] Comprehensive Metabolic Pane goyo 03-31-2024 Albumin [Mass/Vol] 4.1 g/dL Normal 3.5-5.7 [facility] Comment on above: Order Comment: FASTI NG. JKW Performed By: #### P T, CBC, BMP, HS TROP, PTT, BNP #### [facility] [address] [place] [address] [place] GFR/1.73 sq M.predicted MDRD (S/P/Bld) [Vol rate/Area] mL/min/{1.73_m2} Normal [facility] Comment on above: Order Comment: FASTI NG. JKW Performed By: #### P T, CBC, BMP, HS TROP, PTT, BNP #### [facility] [address] Creatinine [Mass/volume] in Serum or PlasmaOrdered By: Molly Elaine on 03-31-2024 Creatinine [Mass/Vol] 0.53 mg/dL Low 0.60-1.20 [facility] Comment on above: Order Comment: FASTI NG. JKW Performed By: #### P T, CBC, BMP, HS TROP, PTT, BNP #### [facility] [address] [place] [address] Creatinine [Mass/Vol] Creatinine [Mass/v olume] in Serum or Plasma Low 0.60-1.20 [facility] Eosinophils Auto (Bld) [#/Vo l]Ordered By: Molly Elaine on 03-31-2024 Eosinophils (Bld) [#/Vol] Automated eosinophil count 0.0-0.45 [facility] Eosinophils/100 WBC Auto (Bl d)Ordered By: Molly Elaine on 03-31-2024 Eosinophils/100 WBC (Bld) Automated eosinophil % . [facility] Erythrocyte distribution wid th Auto (RBC) [Ratio]Ordered By: Molly Elaine on 03-31-2024 Erythrocyte distribution width (RBC) [Ratio] Erythrocyte distribution width [Ratio] by Automated count 11.9-15.3 [facility] Erythrocyte distribution wid th [Ratio] by Automated countOrdered By: Molyl Elaine on 03-31-2024 Erythrocyte distribution width (RBC) [Ratio] 13.9 % Normal 11.9-15.3 [facility] Comment on above: Order Comment: FASTI NG. JKW Performed By: #### P T, CBC, BMP, HS TROP, PTT, BNP #### [facility] [address] Erythrocytes [#/volume] in B lood by Automated countOrdered By: Molly Chele on 03-31-2024 RBC (Bld) [#/Vol] 4.97 10*6/uL Normal 3.60-5.00 [facility] Comment on above: Order Comment: ADDI TannerKW Performed By: #### P T, CBC, BMP, HS TROP, PTT, BNP #### [facility] [address] [place] [id number] [facility] Globulin Calc (S) [Mass/Vol] Ordered By: Molly Elaine on 03-31-2024 Globulin (S) [Mass/Vol] Serum globulin measurement by calculation (mass/volume) [facility] Glucose [Mass/volume] in Ser um or PlasmaOrdered By: Molly Elaine on 03-31-2024 Glucose [Mass/Vol] 182 mg/dL High 70-100 [facility] Comment on above: ADA recommended refe rence rangeRandom Glucose Reference Range is dependent on time and content of last meal. Glucose of more than 200 mg/dL in a nonstressed, ambulatory subject supports the diagnosis of Diabetes Mellitus. Order Comment: ADDI TannerKW Result Comment: [place] Glucose Reference Range is dependent on time and content of last meal. Glucose of more than 200 mg/dL in a nonstressed, ambulatory subject supports the diagnosis of Diabetes Mellitus. ADA recommended reference range Performed By: #### P T, CBC, BMP, HS TROP, PTT, BNP #### [facility] [address] [place] [id number] [facility] Glucose [Mass/Vol] Glucose [Mass/volume ] in Serum or Plasma High 70-100 [facility] Comment on above: ADA recommended refe rence rangeRandom Glucose Reference Range is dependent on time and content of last meal. Glucose of more than 200 mg/dL in a nonstressed, ambulatory subject supports the diagnosis of Diabetes Mellitus. HCV Antibody Cascadeon 03-31 Hepatitis C Virus Antibody Non-Reactive Normal Non Reactive [facility] Comment on above: Order Comment: FASTI NG. JKW Performed By: #### P T, CBC, BMP, HS TROP, PTT, BNP #### [address] Interpretation Hepatitis C Comment Normal . [facility] Comment on above: Order Comment: FASTI NG. JKW Result Comment: Not infected with HCV unless early or acute infection is suspected (which may be delayed in an immunocompromised individual), or other evidence exists to indicate HCV infection. Performed at: [place] [address] Tubing Tester: Oniel Saldana PhD, Phone: [phone] PERFORMED BY: [place] [address] PATHOLOGIST BREAKER TENDER EFRA RING M.D. Performed By: #### P T, CBC, BMP, HS TROP, PTT, BNP #### [address] HIV 1/O/2 Antigen/Antibodyon 03-31-2024 HIV Screen 4th Generation Non-Reactive Normal Non Reactive [facility] Comment on above: Order Comment: FASTI NG. JKW Result Comment: HIV- 1/HIV-2 antibodies and HIV-1 p24 antigen were NOT detected. There is no laboratory evidence of HIV infection. HIV Negative Performed at: [place] [id number] Tubing Tester: Oniel Saldana PhD, Phone: [phone] PERFORMED BY: [place] [address] PATHOLOGIST BREAKER TENDER EFRA RING M.D. Performed By: #### P T, CBC, BMP, HS TROP, PTT, BNP #### [address] HIV antibody and antigen cobian elOrdered By: Molly Elaine on 03-31-2024 HIV 1+2 Ab+HIV1 p24 Ag IA Ql HIV 1 and HIV-2 antibody assay with HIV-1 p24 antigen detection Non Reactive [facility] Comment on above: HIV-1/HIV-2 antibodi es and HIV-1 p24 antigen were NOTdetected. There is no laboratory evidence of HIV infection.HIV NegativePerformed at: [facility] [address] [id number] Director: Oniel Saldana PhD, Phone: [phone] Hematocrit Auto (Bld) [Volum e fraction]Ordered By: Molly Chele on 03-31-2024 Hematocrit (Bld) [Volume fraction] Hematocrit [Volume Fraction] of Blood by Automated count 34.0-46.4 [facility] Hematocrit [Volume Fraction] of Blood by Automated countOrdered By: Mollymaria g Elaine on 03-31-2024 Hematocrit (Bld) [Volume fraction] 44.7 % Normal 34.0-46.4 [facility] Comment on above: Order Comment: ADDI NGUYEN JKW Performed By: #### P T, CBC, BMP, HS TROP, PTT, BNP #### [facility] [address] [place] [address] [place] Hemoglobin [Mass/volume] in BloodOrdered By: Molly Elaine on 03-31-2024 Hemoglobin (Bld) [Mass/Vol] 15.5 g/dL High 11.8-15.4 [facility] Comment on above: Order Comment: ADDI ANGELA. JKW Performed By: #### P T, CBC, BMP, HS TROP, PTT, BNP #### [facility] [address] [place] [address] Hemoglobin (Bld) [Mass/Vol] Hemoglobin [Mass/volume] in Blood High 11.8-15.4 [facility] Hepatitis B Core Antibodyon 03-31-2024 Hepatitis B Core Antibody Negative Normal Negative [facility] Comment on above: Order Comment: FASTSonya ANGELA. JKW Result Comment: Perf ormed at: [facility] [address] [place], [place] [id number] Tubing Tester: Oniel Saldana PhD, Phone: [phone] PERFORMED BY: [place] [address] PATHOLOGIST BREAKER TENDER EFRA RING M.D. Performed By: #### P T, CBC, BMP, HS TROP, PTT, BNP #### [facility] [address] Hepatitis B virus core antib anjelica assayOrdered By: Molly Chele on 03-31-2024 Hepatitis B Core Total Antibody Negative Negative [facility] Comment on above: Performed at: [facility] - [facility] [address] [id number] Director: Oniel Saldana PhD, Phone: [phone] Hepatitis C virus IgG Ab [Pr esence] in Serum or Plasma by ImmunoassayOrdered By: Molly Elaine on 03-31-2024 HCV IgG IA Ql Hepatitis C virus Ig G Ab [Presence] in Serum or Plasma by Immunoassay Non Reactive [facility] Immunoglobulin M, Serumon Immunoglobulin M, Serum 65 mg/dL Normal 26-217 [facility] Comment on above: Order Comment: ADDI STARKS Result Comment: Perf ormed at: [facility] - [facility] [address] [id number] Tubing Tester: Oniel Saldana PhD, Phone: [phone] Performed By: #### P T, CBC, BMP, HS TROP, PTT, BNP #### [facility] [address] [place] [address] Leukocytes [#/volume] correc jacy for nucleated erythrocytes in Blood by Automated counOrdered By: Molly Elaine on 03-31-2024 WBC corrected for nucl RBC Auto (Bld) [#/Vol] 9.9 10*3/uL 3.8-11.6 [facility] WBC corrected for nucl RBC Auto (Bld) [#/Vol] Leukocytes [#/volume] corrected for nucleated erythrocytes in Blood by Automated coun 3.8-11.6 [facility] Leukocytes [#/volume] in Blo od by Automated countOrdered By: Molly Elaine on 03-31-2024 WBC (Bld) [#/Vol] 9.9 10*3/uL Normal 3.8-11.6 [facility] Comment on above: Order Comment: ADDI STARKS Performed By: #### P T, CBC, BMP, HS TROP, PTT, BNP #### [address] Lymphocytes Auto (Bld) [#/Vo l]Ordered By: Molly Chele on 03-31-2024 Lymphocytes (Bld) [#/Vol] Lymphocytes [#/volume] in Blood by Automated count 1.00-4.8 [facility] Lymphocytes [#/volume] in Bl ood by Automated countOrdered By: Omlly Chele on 03-31-2024 Lymphocytes (Bld) [#/Vol] 2.9 10*3/uL Normal 1.00-4.8 [facility] Comment on above: Order Comment: FASTI JULIO CÉSAR. JKW Performed By: #### P T, CBC, BMP, HS TROP, PTT, BNP #### [address] Lymphocytes/100 WBC Auto (Bl d)Ordered By: Molly Elaine on 03-31-2024 Lymphocytes/100 WBC (Bld) Lymphocytes/100 leukocytes in Blood by Automated count . [facility] Lymphocytes/100 leukocytes i n Blood by Automated countOrdered By: Molly Chele on 03-31-2024 Lymphocytes/100 WBC (Bld) 29.0 % Normal . [facility] Comment on above: Order Comment: FASTI JULIO CÉSAR. JKW Performed By: #### P T, CBC, BMP, HS TROP, PTT, BNP #### [address] MCH Auto (RBC) [Entitic mass ]Ordered By: Molly Elaine on 03-31-2024 MCH (RBC) [Entitic mass] MCH [Entitic mass] by Automated count 24.7-34.3 [facility] MCH [Entitic mass] by Automa jacy countOrdered By: Molly Chele on 03-31-2024 MCH (RBC) [Entitic mass] 31.1 pg Normal 24.7-34.3 [facility] Comment on above: Order Comment: FASTI NG. JKW Performed By: #### P T, CBC, BMP, HS TROP, PTT, BNP #### [address] [place] [address] [facility] MCHC Auto (RBC) [Mass/Vol]Or dered By: Molly Elaine on 03-31-2024 MCHC (RBC) [Mass/Vol] 34.6 g/dL 32.0-35.0 [facility] MCHC (RBC) [Mass/Vol] MCHC [Mass/volume] by Automated count 32.0-35.0 [facility] MCV Auto (RBC) [Entitic vol] Ordered By: Molly Elaine on 03-31-2024 MCV (RBC) [Entitic vol] MCV [Entitic volume] by Automated count 80-100 [facility] MCV [Entitic volume] by Auto mated countOrdered By: Molly Elaine on 03-31-2024 MCV (RBC) [Entitic vol] 90.0 fL Normal 80-100 [facility] Comment on above: Order Comment: ADDI MORGANW Performed By: #### P T, CBC, BMP, HS TROP, PTT, BNP #### [facility] [address] [place] [id number] [facility] Monocytes Auto (Bld) [#/Vol] Ordered By: Molly Elaine on 03-31-2024 Monocytes (Bld) [#/Vol] Automated blood monocyte count 0.0-0.8 [facility] Monocytes/100 WBC Auto (Bld) Ordered By: Molly Elaine on 03-31-2024 Monocytes/100 WBC (Bld) Automated monocyte % . [facility] Neutrophils Auto (Bld) [#/Vo l]Ordered By: Molly Elaine on 03-31-2024 Neutrophils (Bld) [#/Vol] Neutrophils [#/volume] in Blood by Automated count 1.8-7.7 [facility] Neutrophils [#/volume] in Bl ood by Automated countOrdered By: Molly Elaine on 03-31-2024 Neutrophils (Bld) [#/Vol] 6.1 10*3/uL Normal 1.8-7.7 [facility] Comment on above: Order Comment: ADDI MORGANW Performed By: #### P T, CBC, BMP, HS TROP, PTT, BNP #### [facility] [address] [place] [address] [place] Neutrophils/100 WBC Auto (Bl d)Ordered By: Molly Chele on 03-31-2024 Neutrophils/100 WBC (Bld) Automated neutrophil % . [facility] No Panel InformationOrdered By: Molly Chele on 03-31-2024 Estimated GFR (CKD-EPI) > 60.0 mL/Min [facility] Hepatitis C Interpretation Comment . [facility] Comment on above: Not infected with HC V unless early or acute infection issuspected (which may be delayed in an immunocompromisedindividual), or other evidence exists to indicate HCVinfection.Performed at: [address] [id number] Director: Oniel Saldana PhD, Phone: [phone] Pharmacy Creatinine Clearance (Chem N/A [facility] Nucleated erythrocytes [Pres ence] in Blood by Automated countOrdered By: Molly Elaine on 03-31-2024 Nucleated RBC Auto Ql (Bld) 0.1 /100{WBC} 0-0.5 [facility] Nucleated RBC Auto Ql (Bld) Nucleated erythrocytes [Presence] in Blood by Automated count 0-0.5 [facility] Platelet mean volume Auto (B ld) [Entitic vol]Ordered By: Molly Elaine on 03-31-2024 Platelet mean volume (Bld) [Entitic vol] Platelet mean volume [Entitic volume] in Blood by Automated count 6.3-10.7 [facility] Platelet mean volume [Entiti c volume] in Blood by Automated countOrdered By: Molly Elaine on 03-31-2024 Platelet mean volume (Bld) [Entitic vol] 7.7 fL Normal 6.3-10.7 [facility] Comment on above: Order Comment: ADDI MORGANW Performed By: #### P T, CBC, BMP, HS TROP, PTT, BNP #### [facility] [address] [place] [address] [place] Platelets Auto (Bld) [#/Vol] Ordered By: Molly Elaine on 03-31-2024 Platelets (Bld) [#/Vol] Platelets [#/volume] in Blood by Automated count 150-450 [facility] Platelets [#/volume] in Bloo d by Automated countOrdered By: Molly Maerena on 03-31-2024 Platelets (Bld) [#/Vol] 313 10*3/uL Normal 150-450 [facility] Comment on above: Order Comment: FASTI JULIO CÉSAR. JKW Performed By: #### P T, CBC, BMP, HS TROP, PTT, BNP #### [facility] [address] [place] [address] [place] Potassium [Moles/volume] in Serum or PlasmaOrdered By: Molly Chele on 03-31-2024 Potassium [Moles/Vol] 4.1 mmol/L Normal 3.5-5.1 [facility] Comment on above: Order Comment: FASTI JULIO CÉSAR. JKW Performed By: #### P T, CBC, BMP, HS TROP, PTT, BNP #### [facility] [address] [place] [address] [place] Potassium [Moles/Vol] Potassium [Moles/v olume] in Serum or Plasma 3.5-5.1 [facility] Protein [Mass/volume] in Ser um or PlasmaOrdered By: Molly Elaine on 03-31-2024 Protein [Mass/Vol] 6.6 g/dL Normal 6.4-8.9 [facility] Comment on above: Order Comment: FASTSonya ANGELA. JKW Performed By: #### P T, CBC, BMP, HS TROP, PTT, BNP #### [facility] [address] Protein [Mass/Vol] Protein [Mass/volume ] in Serum or Plasma 6.4-8.9 [facility] Quantitative serum or plasma hepatitis C virus RNA assay by real-time PCR (units/voluOrdered By: Molly Chele on 03-31-2024 HCV RNA HARJINDER+probe Qn Hepatitis C virus R NA [Units/volume] (viral load) in Serum or Plasma by HARJINDER with prob [facility] RBC Auto (Bld) [#/Vol]Ordere d By: Molly Chele on 03-31-2024 RBC (Bld) [#/Vol] Erythrocytes [#/volu me] in Blood by Automated count 3.60-5.00 [facility] Serum globulin measurement b y calculation (mass/volume)Ordered By: Molly Maerena on 03-31-2024 Globulin (S) [Mass/Vol] 2.5 g/dL Normal [facility] Comment on above: Order Comment: ADDI MORGANW Performed By: #### P T, CBC, BMP, HS TROP, PTT, BNP #### [address] Serum or plasma IgM measurem ent (mass/volume)Ordered By: Molly Chele on 03-31-2024 IgM [Mass/Vol] IgM [Mass/volume] in Serum or Plasma 26-217 [facility] Comment on above: Performed at: [address] Director: Oniel Saldana PhD, Phone: [phone] Serum or plasma albumin/glob ulin mass ratioOrdered By: Molly Chele on 03-31-2024 Albumin/Globulin [Mass ratio] 1.6 {ratio} [facility] Comment on above: Order Comment: ADDI STARKS Performed By: #### P T, CBC, BMP, HS TROP, PTT, BNP #### [address] Albumin/Globulin [Mass ratio] Serum or plasma albumin/globulin mass ratio [facility] Serum or plasma anion gap de terminationOrdered By: Molly Chele on 03-31-2024 Anion gap [Moles/Vol] 12.7 mmol/L Normal 6.0-15.0 [facility] Comment on above: Order Comment: ADDI STARKS Performed By: #### P T, CBC, BMP, HS TROP, PTT, BNP #### [address] Anion gap [Moles/Vol] Serum or plasma an ion gap determination 6.0-15.0 [facility] Serum or plasma hepatitis C virus RNA measurement by probe and target amplification mOrdered By: Molly Chele on 03-31-2024 HCV RNA HARJINDER+probe [Log units/Vol] Hepatitis C virus RNA [log units/volume] (viral load) in Serum or Plasma by HARJINDER with [facility] Sodium [Moles/volume] in Ser um or PlasmaOrdered By: Molly Elaine on 03-31-2024 Sodium [Moles/Vol] 136 mmol/L Normal 136-145 [facility] Comment on above: Order Comment: ADDI TannerKW Performed By: #### P T, CBC, BMP, HS TROP, PTT, BNP #### [facility] [address] Sodium [Moles/Vol] Sodium [Moles/volume ] in Serum or Plasma 136-145 [facility] Urea nitrogen [Mass/volume] in Serum or PlasmaOrdered By: Molly Elaine on 03-31-2024 Urea nitrogen [Mass/Vol] 10 mg/dL Normal 12-25 [facility] Comment on above: Order Comment: ADDI TannerKW Performed By: #### P T, CBC, BMP, HS TROP, PTT, BNP #### [facility] [address] [place] [address] [place] Urea nitrogen [Mass/Vol] Urea nitrogen [Mass/volume] in Serum or Plasma 12-25 [facility] WBC Auto (Bld) [#/Vol]Ordere d By: Molly Elaine on 03-31-2024 WBC (Bld) [#/Vol] Leukocytes [#/volume ] in Blood by Automated count 3.8-11.6 [facility] Capillary blood glucose anuradha urement by glucometer (mass/volume)Ordered By: NII Steinberg on 01-31-2024 Glucose [Mass/Vol] 180 mg/dL Normal [facility] Comment on above: Random Glucose Refer ence Range is dependent on time and content of last meal. Glucose of more than 200 mg/dL in a nonstressed, ambulatory subject supports the diagnosis of Diabetes Mellitus. Result Comment: [place] om Glucose Reference Range is dependent on time and content of last meal. Glucose of more than 200 mg/dL in a nonstressed, ambulatory subject supports the diagnosis of Diabetes Mellitus. PERFORMED BY: [place] [address] PATHOLOGIST BREAKER TENDER EFRA RING M.D. Performed By: #### P T, CBC, BMP, HS TROP, PTT, BNP #### [place] [id number] [facility] GLUCOSE POCT GLUCOMETERSon 0 01-31-2024 Glucose [Mass/Vol] 180 mg/dL [facility] Comment on above: Random Glucose Refer ence Range is dependent on time and content of last meal. Glucose of more than 200 mg/dL in a nonstressed, ambulatory subject supports the diagnosis of Diabetes Mellitus. [facility] HCG ( test) IA.zafari d Ql (U)Ordered By: MAICO Steinberg on 01-31-2024 HCG ( test) Ql (U) Negative [facility] HCG,Urineon 01-31-2024 Beta HCG ( test) Ql (U) Negative Normal [facility] Comment on above: Result Comment: PERF ORMED BY: [place] [address] PATHOLOGIST BREAKER TENDER EFRA RING M.D. Performed By: #### P T, CBC, BMP, HS TROP, PTT, BNP #### [place] [id number] [facility] Goyo 01-31-2024 L Specimen: [id number] Received: 01/31/24 Status: CRISTOFER Alvarez Num: [id number] Spec Type: Surgical Subm Dr: MAICO Bishop Tissues: A Endometrium - Curettings (ENDOMETRIAL CURETTINGS) Procedures: HE/2, Gross/Micro L4 Age/ Patient Sex Location Account Attending Physician Natividad Bonner 38/F MD [id number] MAICO Bishop SPEC NUM: [id number] RECD: 01/31/24 STATUS: CRISTOFER ALVAREZ NUM: [id number] KLARISSA: 01/31/24- SUBM DR: MAICO Bishop ENTERED: 01/31/24 [facility] DR: SPEC TYPE: Surgical DEPT: S ORDERED: HE/2, Gross/Micro L4 ORDERED: HE2, Gross/Micro L4 Pathological Diagnosis Endometrial curettings: -Abundant Clot with Occasional Small Strips of Inactive Endometrium, but Also Demonstrating Occasional Tiny Noticed Foci of Superficial Chronic Breakdown Change or Effect, otherwise without hyperplasia or atypia identified -Incidental 2 small fragments with minor suspected predecidual stromal change -Also some admixed cervical epithelial elements without dysplasia Clinical Information Menorrhagia with irregular cycle Gross Description The specimen was received in formalin with the patient's name and endometrial curettings and consists of multiple hemorrhagic soft tissue fragments measuring 2.5 x 1.5 x 0.4 cm in aggregate. The specimen is filtered entirely submitted in cassette A1. DM Specimen: [id number] Received: 01/31/24 Status: CRISTOFER Batresandriy Num: [id number] Spec Type: Surgical Subm Dr: Mely Steinberg MD-[facility] Tissues: A Endometrium - Curettings (ENDOMETRIAL CURETTINGS) Procedures: , Gross/Micro L4 Patient: Natividad Bonner [id number] (Continued) Specimen: [id number] Received: 01/31/24 (Continued) Signed (signature on file) María Soto MD 02/10/242026 Specimen: [id number] Received: 01/31/24 Status: CRISTOFER Alvarez Num: [id number] Spec Type: Surgical Subm Dr: Mely Steinberg MD-JACKELIN Tissues: A Endometrium - Curettings (ENDOMETRIAL CURETTINGS) Procedures: HE/Bella, Gross/Micro L4 Patient: Natividad Bonner [id number] (Continued) Specimen: [id number] Received: 01/31/24 (Continued) Microscopic Description Microscopic examinations are performed supporting the above interpretation CPT Codes 14828 Specimen: [id number] Received: 01/31/24 Status: CRISTOFER Batresandriy Num: [id number] Spec Type: Surgical Subm Dr: Mely Steinberg MD-[facility] Tissues: A Endometrium - Curettings (ENDOMETRIAL CURETTINGS) Procedures: Abelino SANCHEZ/Kiara L4 Patient: Natividad Bonner [id number] (Continued) Signed (signature on file) María Soto MD 02/10/242026 Normal [facility] hCG, quantitative, on 08-30-2024 Beta HCG ( test) Ql (U) Negative [facility] Alanine aminotransferase [En zymatic activity/volume] in Serum or PlasmaOrdered By: MAICO Steinberg on 01-21-2024 ALT [Catalytic activity/Vol] 14 U/L Normal 7-52 [facility] Comment on above: Performed By: #### P T, CBC, BMP, HS TROP, PTT, BNP #### [address] Albumin [Mass/volume] in Ser um or Plasma by Bromocresol green (BCG) dye binding methoOrdered By: MAICO Steinberg on 01-21-2024 Albumin BCG dye [Mass/Vol] 4.1 g/dL 3.5-5.7 [facility] Alkaline phosphatase [Enzyma tic activity/volume] in Serum or PlasmaOrdered By: MAICO Steinberg on 01-21-2024 ALP [Catalytic activity/Vol] 79 U/L Normal 34-104 [facility] Comment on above: Result Comment: PERF ORMED BY: [place] [address] PATHOLOGIST BREAKER TENDER EFRA RING M.D. Performed By: #### P T, CBC, BMP, HS TROP, PTT, BNP #### [address] Aspartate aminotransferase [ Enzymatic activity/volume] in Serum or PlasmaOrdered By: MAICO Steinberg on 01-21-2024 AST [Catalytic activity/Vol] 10 U/L Low 13-39 [facility] Comment on above: Performed By: #### P T, CBC, BMP, HS TROP, PTT, BNP #### [address] Automated basophil %Ordered By: MAICO Steinberg on 01-21-2024 Basophils/100 WBC (Bld) 1.0 % Normal . [facility] Comment on above: Performed By: #### P T, CBC, BMP, HS TROP, PTT, BNP #### [place] [address] [place] Automated basophil countOrde red By: MAICO Steinberg on 01-21-2024 Basophils (Bld) [#/Vol] 0.1 10*3/uL Normal 0.0-0.2 [facility] Comment on above: Result Comment: PERF ORMED BY: [place] [address] PATHOLOGIST BREAKER TENDER EFRA RING M.D. Performed By: #### P T, CBC, BMP, HS TROP, PTT, BNP #### [address] Automated blood monocyte cou ntOrdered By: MAICO Steinberg on 01-21-2024 Monocytes (Bld) [#/Vol] 0.5 10*3/uL Normal 0.0-0.8 [facility] Comment on above: Performed By: #### P T, CBC, BMP, HS TROP, PTT, BNP #### [address] Automated eosinophil %Ordere d By: MAICO Steinberg on 01-21-2024 Eosinophils/100 WBC (Bld) 2.5 % Normal . [facility] Comment on above: Performed By: #### P T, CBC, BMP, HS TROP, PTT, BNP #### [address] Automated eosinophil countOr dered By: MAICO Steinberg on 01-21-2024 Eosinophils (Bld) [#/Vol] 0.3 10*3/uL Normal 0.0-0.45 [facility] Comment on above: Performed By: #### P T, CBC, BMP, HS TROP, PTT, BNP #### [address] Automated monocyte %Ordered By: MAICO Steinberg on 01-21-2024 Monocytes/100 WBC (Bld) 5.3 % Normal . [facility] Comment on above: Performed By: #### P T, CBC, BMP, HS TROP, PTT, BNP #### [place] [id number] [place] Automated neutrophil %Ordere d By: MAICO Steinberg on 01-21-2024 Neutrophils/100 WBC (Bld) 65.9 % Normal . [facility] Comment on above: Performed By: #### P T, CBC, BMP, HS TROP, PTT, BNP #### [facility] [address] Bilirubin.total [Mass/volume ] in Serum or PlasmaOrdered By: MAICO Steinberg on 01-21-2024 Bilirubin [Mass/Vol] 0.3 mg/dL Normal 0.3-1.0 [facility] Comment on above: Performed By: #### P T, CBC, BMP, HS TROP, PTT, BNP #### [facility] [address] CBC W Auto Differential pane l (Bld)on 01-21-2024 Basophils (Bld) [#/Vol] 0.1 10*3/uL 0.0 - 0.2 10*3/uL [facility] Basophils/100 WBC Manual cnt (Syn fld) 1.0 % . [facility] Eosinophils (Bld) [#/Vol] 0.3 10*3/uL 0.0 - 0.45 10*3/uL [facility] Eosinophils/100 WBC Manual cnt (Syn fld) 2.5 % . [facility] Erythrocyte distribution width (RBC) [Ratio] 13.8 % 11.9 - 15.3 % [facility] Hematocrit (Bld) [Volume fraction] 42.0 % 34.0 - 46.4 % [facility] Hemoglobin (Bld) [Mass/Vol] 14.7 g/dL 11.8 - 15.4 g/dL [facility] Lymphocytes (Bld) [#/Vol] 2.5 10*3/uL 1.00 - 4.8 10*3/uL [facility] Lymphocytes/100 WBC Manual cnt (Syn fld) 25.3 % . [facility] MCH (RBC) [Entitic mass] 30.6 pg 24.7 - 34.3 pg [facility] MCHC (RBC) [Mass/Vol] 35.0 g/dL 32.0 - 35.0 g/dL [facility] MCV (RBC) [Entitic vol] 87.4 fL 80 - 100 fL [facility] Monocytes (Bld) [#/Vol] 0.5 10*3/uL 0.0 - 0.8 10*3/uL [facility] Monocytes+Macrophages/ 100 WBC Manual cnt (Syn fld) 5.3 % . [facility] Neutrophils (Bld) [#/Vol] 6.5 10*3/uL 1.8 - 7.7 10*3/uL [facility] Neutrophils/100 WBC Manual cnt (Syn fld) 65.9 % . [facility] NRBC 0.1 /100{WBC} 0 - 0.5 /100{WBC} [facility] Platelet mean volume (Bld) [Entitic vol] 7.3 fL 6.3 - 10.7 fL [facility] Platelets (Bld) [#/Vol] 304 10*3/uL 150 - 450 10*3/uL [facility] RBC LM.HPF (Urine sed) [#/Area] 4.80 /[HPF] 3.60 - 5.00 [facility] WBC (Bld) [#/Vol] 9.9 10*3/uL 3.8 - 11.6 10*3/uL [facility] WBC LM.HPF (Urine sed) [#/Area] 9.9 10*3/uL 3.8 - 11.6 10*3/uL [facility] Calcium [Mass/volume] in Ser um or PlasmaOrdered By: MAICO Steinberg on 01-21-2024 Calcium [Mass/Vol] 8.9 mg/dL Normal 8.6-10.3 [facility] Comment on above: Performed By: #### P T, CBC, BMP, HS TROP, PTT, BNP #### [facility] [address] Carbon dioxide, total [Moles /volume] in Serum or PlasmaOrdered By: MAICO Steinberg on 01-21-2024 CO2 [Moles/Vol] 21.3 mmol/L Normal 21.0-31.0 [facility] Comment on above: Performed By: #### P T, CBC, BMP, HS TROP, PTT, BNP #### [facility] [address] [place] [address] Chloride [Moles/volume] in S zaria or PlasmaOrdered By: MAICO Steinberg on 01-21-2024 Chloride [Moles/Vol] 104 mmol/L Normal 98-107 [facility] Comment on above: Performed By: #### P T, CBC, BMP, HS TROP, PTT, BNP #### [address] Complete Blood Count Auto Di ffon 01-21-2024 Mean Corpuscular HGB Conc 35.0 g/dL Normal 32.0-35.0 [facility] Comment on above: Performed By: #### P T, CBC, BMP, HS TROP, PTT, BNP #### [address] NRBC% 0.1 /100{WBC} Normal 0-0.5 [facility] Comment on above: Performed By: #### P T, CBC, BMP, HS TROP, PTT, BNP #### [address] Comprehensive Metabolic Pane goyo 01-21-2024 Albumin [Mass/Vol] 4.1 g/dL Normal 3.5-5.7 [facility] Comment on above: Performed By: #### P T, CBC, BMP, HS TROP, PTT, BNP #### [address] GFR/1.73 sq M.predicted MDRD (S/P/Bld) [Vol rate/Area] mL/min/{1.73_m2} Normal [facility] Comment on above: Performed By: #### P T, CBC, BMP, HS TROP, PTT, BNP #### [address] Comprehensive metabolic pane goyo 01-21-2024 Albumin [Mass/Vol] 4.1 g/dL 3.5 - 5.7 g/dL [facility] Albumin/Globulin [Mass ratio] 1.6 {ratio} [facility] ALP [Catalytic activity/Vol] 79 U/L 34 - 104 U/L [facility] ALT [Catalytic activity/Vol] 14 U/L 7 - 52 U/L [facility] Anion gap [Moles/Vol] 14.8 mmol/L 6.0 - 15.0 [facility] AST [Catalytic activity/Vol] 10 U/L Low 13 - 39 U/L [facility] Bilirubin [Mass/Vol] 0.3 mg/dL 0.3 - 1 .0 mg/dL [facility] Calcium [Mass/Vol] 8.9 mg/dL 8.6 - 10. 3 mg/dL [facility] Chloride [Moles/Vol] 104 mmol/L 98 - 10 7 mmol/L [facility] CO2 [Moles/Vol] 21.3 mmol/L 21.0 - 31.0 mmol/L [facility] Creatinine (U) [Mass/Vol] 0.58 mg/dL Low 0.60 - 1.20 mg/dL [facility] GFR/1.73 sq M.predicted MDRD (S/P/Bld) [Vol rate/Area] mL/min/{1.73_m2} [facility] Globulin (S) [Mass/Vol] 2.5 g/dL [facility] Glucose [Mass/Vol] 199 mg/dL High 70 - 100 mg/dL [facility] Comment on above: Random Glucose Refer ence Range is dependent on time and content of last meal. Glucose of more than 200 mg/dL in a nonstressed, ambulatory subject supports the diagnosis of Diabetes Mellitus. ADA recommended reference range Interpretation and review of laboratory results Abnormal [facility] Potassium [Moles/Vol] 4.1 mmol/L 3.5 - 5.1 mmol/L [facility] Protein [Mass/Vol] 6.6 g/dL 6.4 - 8.9 g/dL [facility] Sodium [Moles/Vol] 136 mmol/L 136 - 145 mmol/L [facility] Urea nitrogen [Mass/Vol] 11 mg/dL 7 - 25 mg/dL [facility] Creatinine [Mass/volume] in Serum or PlasmaOrdered By: MAICO Steinberg on 01-21-2024 Creatinine [Mass/Vol] 0.58 mg/dL Low 0.60-1.20 [facility] Comment on above: Performed By: #### P T, CBC, BMP, HS TROP, PTT, BNP #### [facility] [address] Erythrocyte distribution wid th [Ratio] by Automated countOrdered By: MAICO Steinberg on 01-21-2024 Erythrocyte distribution width (RBC) [Ratio] 13.8 % Normal 11.9-15.3 [facility] Comment on above: Performed By: #### P T, CBC, BMP, HS TROP, PTT, BNP #### [facility] [address] Erythrocytes [#/volume] in B lood by Automated countOrdered By: MAICO Steinberg on 01-21-2024 RBC (Bld) [#/Vol] 4.80 10*6/uL Normal 3.60-5.00 [facility] Comment on above: Performed By: #### P T, CBC, BMP, HS TROP, PTT, BNP #### [facility] [address] Glucose [Mass/volume] in Ser um or PlasmaOrdered By: MAICO Steinberg on 01-21-2024 Glucose [Mass/Vol] 199 mg/dL High 70-100 [facility] Comment on above: ADA recommended refe rence rangeRandom Glucose Reference Range is dependent on time and content of last meal. Glucose of more than 200 mg/dL in a nonstressed, ambulatory subject supports the diagnosis of Diabetes Mellitus. Result Comment: [place] Glucose Reference Range is dependent on time and content of last meal. Glucose of more than 200 mg/dL in a nonstressed, ambulatory subject supports the diagnosis of Diabetes Mellitus. ADA recommended reference range Performed By: #### P T, CBC, BMP, HS TROP, PTT, BNP #### [facility] [address] Hematocrit [Volume Fraction] of Blood by Automated countOrdered By: MAICO Steinberg on 01-21-2024 Hematocrit (Bld) [Volume fraction] 42.0 % Normal 34.0-46.4 [facility] Comment on above: Performed By: #### P T, CBC, BMP, HS TROP, PTT, BNP #### [facility] [address] Hemoglobin [Mass/volume] in BloodOrdered By: MAICO Steinberg on 01-21-2024 Hemoglobin (Bld) [Mass/Vol] 14.7 g/dL Normal 11.8-15.4 [facility] Comment on above: Performed By: #### P T, CBC, BMP, HS TROP, PTT, BNP #### [facility] [address] Leukocytes [#/volume] correc jacy for nucleated erythrocytes in Blood by Automated counOrdered By: MAICO Steinberg on 01-21-2024 WBC corrected for nucl RBC Auto (Bld) [#/Vol] 9.9 10*3/uL 3.8-11.6 [facility] Leukocytes [#/volume] in Blo od by Automated countOrdered By: MAICO Steinberg on 01-21-2024 WBC (Bld) [#/Vol] 9.9 10*3/uL Normal 3.8-11.6 [facility] Comment on above: Performed By: #### P T, CBC, BMP, HS TROP, PTT, BNP #### [facility] [address] [place] [address] [place] Lymphocytes [#/volume] in Bl ood by Automated countOrdered By: MAICO Steinberg on 01-21-2024 Lymphocytes (Bld) [#/Vol] 2.5 10*3/uL Normal 1.00-4.8 [facility] Comment on above: Performed By: #### P T, CBC, BMP, HS TROP, PTT, BNP #### [facility] [address] [place] [address] [place] Lymphocytes/100 leukocytes i n Blood by Automated countOrdered By: MAICO Steinberg on 01-21-2024 Lymphocytes/100 WBC (Bld) 25.3 % Normal . [facility] Comment on above: Performed By: #### P T, CBC, BMP, HS TROP, PTT, BNP #### [place] [address] [place] MCH [Entitic mass] by Automa jacy countOrdered By: MAICO Steinberg on 01-21-2024 MCH (RBC) [Entitic mass] 30.6 pg Normal 24.7-34.3 [facility] Comment on above: Performed By: #### P T, CBC, BMP, HS TROP, PTT, BNP #### [facility] [address] [place] [address] MCHC Auto (RBC) [Mass/Vol]Or dered By: MAICO Steinberg on 01-21-2024 MCHC (RBC) [Mass/Vol] 35.0 g/dL 32.0-35.0 [facility] MCV [Entitic volume] by Auto mated countOrdered By: MAICO Steinberg on 01-21-2024 MCV (RBC) [Entitic vol] 87.4 fL Normal 80-100 [facility] Comment on above: Performed By: #### P T, CBC, BMP, HS TROP, PTT, BNP #### [facility] [address] [place] [address] Neutrophils [#/volume] in Bl ood by Automated countOrdered By: MAICO Steinberg on 01-21-2024 Neutrophils (Bld) [#/Vol] 6.5 10*3/uL Normal 1.8-7.7 [facility] Comment on above: Performed By: #### P T, CBC, BMP, HS TROP, PTT, BNP #### [facility] [address] [place] [address] No Panel InformationOrdered By: MAICO Steinberg on 01-21-2024 Estimated GFR (CKD-EPI) > 60.0 mL/Min [facility] Creatinine Clearance (Chem N/A [facility] Nucleated erythrocytes [Pres ence] in Blood by Automated countOrdered By: MAICO Steinberg on 01-21-2024 Nucleated RBC Auto Ql (Bld) 0.1 /100{WBC} 0-0.5 [facility] Platelet mean volume [Entiti c volume] in Blood by Automated countOrdered By: NII Steinberg on 01-21-2024 Platelet mean volume (Bld) [Entitic vol] 7.3 fL Normal 6.3-10.7 [facility] Comment on above: Performed By: #### P T, CBC, BMP, HS TROP, PTT, BNP #### [facility] [address] [place] [address] Platelets [#/volume] in Bloo d by Automated countOrdered By: MAICO Steinberg on 01-21-2024 Platelets (Bld) [#/Vol] 304 10*3/uL Normal 150-450 [facility] Comment on above: Performed By: #### P T, CBC, BMP, HS TROP, PTT, BNP #### [facility] [address] [place] [address] Potassium [Moles/volume] in Serum or PlasmaOrdered By: MAICO Steinberg on 01-21-2024 Potassium [Moles/Vol] 4.1 mmol/L Normal 3.5-5.1 [facility] Comment on above: Performed By: #### P T, CBC, BMP, HS TROP, PTT, BNP #### [facility] [address] [place] [address] Protein [Mass/volume] in Ser um or PlasmaOrdered By: MAICO Steinberg on 01-21-2024 Protein [Mass/Vol] 6.6 g/dL Normal 6.4-8.9 [facility] Comment on above: Performed By: #### P T, CBC, BMP, HS TROP, PTT, BNP #### [facility] [address] [place] [address] Serum globulin measurement b y calculation (mass/volume)Ordered By: MAICO Steinberg on 01-21-2024 Globulin (S) [Mass/Vol] 2.5 g/dL [facility] Comment on above: Performed By: #### P T, CBC, BMP, HS TROP, PTT, BNP #### [facility] [address] [place] [address] Serum or plasma albumin/glob ulin mass ratioOrdered By: MAICO Steinberg on 01-21-2024 Albumin/Globulin [Mass ratio] 1.6 {ratio} Normal [facility] Comment on above: Performed By: #### P T, CBC, BMP, HS TROP, PTT, BNP #### [address] Serum or plasma anion gap de terminationOrdered By: MAICO Steinberg on 01-21-2024 Anion gap [Moles/Vol] 14.8 mmol/L Normal 6.0-15.0 [facility] Comment on above: Performed By: #### P T, CBC, BMP, HS TROP, PTT, BNP #### [address] Sodium [Moles/volume] in Ser um or PlasmaOrdered By: MAICO Steinberg on 01-21-2024 Sodium [Moles/Vol] 136 mmol/L Normal 136-145 [facility] Comment on above: Performed By: #### P T, CBC, BMP, HS TROP, PTT, BNP #### [address] Urea nitrogen [Mass/volume] in Serum or PlasmaOrdered By: MAICO Steinberg on 01-21-2024 Urea nitrogen [Mass/Vol] 11 mg/dL Normal 7-25 [facility] Comment on above: Performed By: #### P T, CBC, BMP, HS TROP, PTT, BNP #### [address] Albumin [Mass/volume] in Ser um or Plasma by Bromocresol green (BCG) dye binding methoOrdered By: Nigel Lawson on 10-18-2023 Albumin BCG dye [Mass/Vol] 4.4 g/dL 3.5-5.7 [facility] Calcium [Mass/volume] in Ser um or PlasmaOrdered By: Nigel Lawson on 10-18-2023 Calcium [Mass/Vol] 9.3 mg/dL 8.6-10.3 [facility] Carbon dioxide, total [Moles /volume] in Serum or PlasmaOrdered By: Nigel Lawson on 10-18-2023 CO2 [Moles/Vol] 23.3 mmol/L 21.0-31.0 [facility] Chloride [Moles/volume] in S zaria or PlasmaOrdered By: Nigel Lawson on 10-18-2023 Chloride [Moles/Vol] 106 mmol/L 98-107 [facility] Cholesterol [Mass/volume] in Serum or PlasmaOrdered By: Nigel Lawson on 10-18-2023 Cholesterol [Mass/Vol] 125 mg/dL 140-200 [facility] Comment on above: Chol less than 200 m g/dl low riskChol 201-239 mg/dl borderline riskChol 240 mg/dl and greater high risk Cholesterol in LDL Calc [Mas s/Vol]Ordered By: Nigel Lawson on 10-18-2023 Cholesterol in LDL [Mass/Vol] 61 mg/dL 0-100 [facility] Comment on above: LDL ATP III CLASSIFI CATIONLDL less than 100 mg/dL OptimalLDL 100-129 mg/dL Near or above optimalLDL 130-159 mg/dL Borderline highLDL 160-189 mg/dL HighLDL greater than 189 mg/dL Very high Cholesterol in VLDL Calc [Ma ss/Vol]Ordered By: Nigel Lawson on 10-18-2023 Cholesterol in VLDL [Mass/Vol] 32 mg/dL [facility] Creatinine [Mass/volume] in Serum or PlasmaOrdered By: Nigel Lawson on 10-18-2023 Creatinine [Mass/Vol] 0.63 mg/dL 0.60-1.20 [facility] Creatinine [Mass/volume] in UrineOrdered By: Nigel Lawson on 10-18-2023 Creatinine (U) [Mass/Vol] 51.0 mg/dL [facility] Comment on above: No reference range e stablished Glucose [Mass/volume] in Ser um or PlasmaOrdered By: Nigel Lawson on 10-18-2023 Glucose [Mass/Vol] 126 mg/dL 70-100 [facility] Comment on above: ADA recommended refe rence rangeRandom Glucose Reference Range is dependent on time and content of last meal. Glucose of more than 200 mg/dL in a nonstressed, ambulatory subject supports the diagnosis of Diabetes Mellitus. Microalbumin [Mass/volume] i n UrineOrdered By: Nigel Lawson on 10-18-2023 Albumin DL <= 20 mg/L (U) [Mass/Vol] mg/dL 0.0-1.8 [facility] No Panel InformationOrdered By: Nigel Lawson on 10-18-2023 Estimated GFR (CKD-EPI) > 60.0 mL/Min [facility] Creatinine Clearance (Chem N/A [facility] Phosphate [Mass/volume] in S zaria or PlasmaOrdered By: Nigel Lawson on 10-18-2023 Phosphate [Mass/Vol] 3.8 mg/dL 2.5-4.5 [facility] Potassium [Moles/volume] in Serum or PlasmaOrdered By: Nigel Lawson on 10-18-2023 Potassium [Moles/Vol] 4.2 mmol/L 3.5-5.1 [facility] Serum or plasma anion gap de terminationOrdered By: Nigel Lawson on 10-18-2023 Anion gap [Moles/Vol] 11.9 mmol/L 6.0-15.0 [facility] Serum or plasma high density lipoprotein (HDL) cholesterol measurementOrdered By: Nigel Lawson on 10-18-2023 Cholesterol in HDL [Mass/Vol] 32 mg/dL 23-92 [facility] Comment on above: HDL CHOL ATP-III CLA SSIFICATION Cardiovascular RiskHDL > or equal to 60 mg/dL LOWHDL < 40 mg/dL HIGH Serum or plasma total choles terol/high density lipoprotein (HDL) cholesterol mass ratOrdered By: Nigel Lawson on 10-18-2023 Cholesterol.total/Chol esterol in HDL [Mass ratio] 3.9 {ratio} <5.0 [facility] Sodium [Moles/volume] in Ser um or PlasmaOrdered By: Nigel Lawson on 10-18-2023 Sodium [Moles/Vol] 137 mmol/L 136-145 [facility] Triglyceride [Mass/volume] i n Serum or PlasmaOrdered By: Nigel Lawson on 10-18-2023 Triglyceride [Mass/Vol] 162 mg/dL 0-149 [facility] Comment on above: TRIG ATP III CLASSIF ICATIONTRIG less than 150 mg/dL NormalTRIG 150-199 mg/dL Borderline highTRIG 200-500 mg/dL High TRIG greater than 500 mg/dL Very highStandard traceable to the Center for Disease Conrtrol and Prevention (CDC) test method. Urea nitrogen [Mass/volume] in Serum or PlasmaOrdered By: Nigel Lawson on 10-18-2023 Urea nitrogen [Mass/Vol] 11 mg/dL 12-25 [facility] Urine microalbumin/creatinin e mass ratioOrdered By: Nigel Lawson on 10-18-2023 Albumin/Creatinine DL <= 20 mg/L (U) [Mass ratio] TNP [facility] Comment on above: Test not performed Vitamin D+Metabolites [Mass/ volume] in Serum or PlasmaOrdered By: Nigel Lawson on 10-18-2023 Vitamin D+Metabolites [Mass/Vol] 17.6 ng/mL 30-100 [facility] Comment on above: VITAMIN D STATUS 25( [place])VITAMIN D RANGE (ng/mL) Deficient <20 Insufficient 20 to <30Sufficient 30 to 100Reference: Zoe MF,Steve NC, Catie THOMPSON, et al. Evaluation,treatment, and prevention of vitamin D deficiency; an Endocrine Society clinical practice guideline. JCEM. 2010; 96(7):1911-30. Activated partial thrombopla stin time (aPTT) in platelet poor plasma by coagulation aOrdered By: Stephane Alonso on 08-07-2023 aPTT Coag (PPP) [Time] 29.8 s 25.1-36.5 [facility] Comment on above: A hematocrit value g reater than 55% may lead to inaccurate results in coagulation testing. Patients having hematocrit values >55% require a special collection tube for coagulation studies. Please contact the laboratory at [phone] for redraw instructions. Alanine aminotransferase [En zymatic activity/volume] in Serum or PlasmaOrdered By: Stephane Alonso on 08-07-2023 ALT [Catalytic activity/Vol] 17 U/L [facility] Albumin [Mass/volume] in Ser um or Plasma by Bromocresol green (BCG) dye binding methoOrdered By: Stephane Alonso on 08-07-2023 Albumin BCG dye [Mass/Vol] 4.2 g/dL 3.5-5.7 [facility] Alkaline phosphatase [Enzyma tic activity/volume] in Serum or PlasmaOrdered By: Stephane Alonso on 08-07-2023 ALP [Catalytic activity/Vol] 60 U/L 34-104 [facility] Aspartate aminotransferase [ Enzymatic activity/volume] in Serum or PlasmaOrdered By: Stephane Alonso on 08-07-2023 AST [Catalytic activity/Vol] 14 U/L 13-39 [facility] Basophils Auto (Bld) [#/Vol] Ordered By: Stephane Alonso on 08-07-2023 Basophils (Bld) [#/Vol] 0.1 10*3/uL 0.0-0.2 [facility] Basophils/100 WBC Auto (Bld) Ordered By: Stephane Alonso on 08-07-2023 Basophils/100 WBC (Bld) 0.7 % . [facility] Beta hydroxybutyrate [Moles/ volume] in Serum or PlasmaOrdered By: Stephane Alonso on 08-07-2023 Beta hydroxybutyrate [Moles/Vol] 0.20 mmol/L 0.02-0.27 [facility] Bilirubin.total [Mass/volume ] in Serum or PlasmaOrdered By: Stephane Alonso on 08-07-2023 Bilirubin [Mass/Vol] 0.2 mg/dL 0.3-1.0 [facility] Calcium [Mass/volume] in Ser um or PlasmaOrdered By: Stephane Alonso on 08-07-2023 Calcium [Mass/Vol] 9.0 mg/dL 8.6-10.3 [facility] Carbon dioxide, total [Moles /volume] in Serum or PlasmaOrdered By: Stephane Alonso on 08-07-2023 CO2 [Moles/Vol] 20.0 mmol/L 21.0-31.0 [facility] Chloride [Moles/volume] in S zaria or PlasmaOrdered By: Stephane Alonso on 08-07-2023 Chloride [Moles/Vol] 104 mmol/L 98-107 [facility] Creatinine [Mass/volume] in Serum or PlasmaOrdered By: Stephane Alonso on 08-07-2023 Creatinine [Mass/Vol] 0.56 mg/dL 0.60-1.20 [facility] Eosinophils Auto (Bld) [#/Vo l]Ordered By: Stephane Alonso on 08-07-2023 Eosinophils (Bld) [#/Vol] 0.1 10*3/uL 0.0-0.45 [facility] Eosinophils/100 WBC Auto (Bl d)Ordered By: Stephane Alonso on 08-07-2023 Eosinophils/100 WBC (Bld) 0.6 % . [facility] Erythrocyte distribution wid th Auto (RBC) [Ratio]Ordered By: Stephane Alonso on 08-07-2023 Erythrocyte distribution width (RBC) [Ratio] 12.9 % 11.9-15.3 [facility] Globulin Calc (S) [Mass/Vol] Ordered By: Stephane Alonso on 08-07-2023 Globulin (S) [Mass/Vol] 2.9 g/dL [facility] Glucose Glucometer (BldC) [M ass/Vol]Ordered By: NURIA RESENDEZ on 08-07-2023 Glucose [Mass/Vol] 365 mg/dL [facility] Comment on above: Random Glucose Refer ence Range is dependent on time and content of last meal. Glucose of more than 200 mg/dL in a nonstressed, ambulatory subject supports the diagnosis of Diabetes Mellitus. Glucose [Mass/volume] in Ser um or PlasmaOrdered By: Stephane Alonso on 08-07-2023 Glucose [Mass/Vol] 331 mg/dL 70-100 [facility] Comment on above: ADA recommended refe rence rangeRandom Glucose Reference Range is dependent on time and content of last meal. Glucose of more than 200 mg/dL in a nonstressed, ambulatory subject supports the diagnosis of Diabetes Mellitus. Hematocrit Auto (Bld) [Volum e fraction]Ordered By: Stephane Alonso on 08-07-2023 Hematocrit (Bld) [Volume fraction] 42.3 % 34.0-46.4 [facility] Hemoglobin [Mass/volume] in BloodOrdered By: Stephane Alonso on 08-07-2023 Hemoglobin (Bld) [Mass/Vol] 14.7 g/dL 11.8-15.4 [facility] INR in Platelet poor plasma by Coagulation assayOrdered By: Stephane Alonso on 08-07-2023 INR Coag (PPP) [Relative time] 1.0 {INR} [facility] Comment on above: INR Therapeutic Rang e A) Pre- and Peroperative OAT started two weeks before surgery. NOT HIP SURGERY: 1.5 - 2.5 HIP SURGERY: 2 - 3B) Primary and secondary prevention of venous THROMBOSIS: 2 - 3C) Active venous thrombosis, pulmonary embolismand prevention of recurrent venous thrombosis: 2 - 3D) Prevention of arterial thromboembolismincluding patients with mechanical heart valves: 3 - 4.5 Laboratory - Chemistry and C hemistry - challengeOrdered By: Stephane Alonso on 08-07-2023 CO2 [Moles/Vol] 21.4 mmol/L 24.0-29.0 [facility] HCO3 (Bld) [Moles/Vol] 20.4 mmol/L 23.0-29.0 [facility] Leukocytes [#/volume] correc jacy for nucleated erythrocytes in Blood by Automated counOrdered By: Stephane Alonso on 08-07-2023 WBC corrected for nucl RBC Auto (Bld) [#/Vol] 9.5 10*3/uL 3.8-11.6 [facility] Lymphocytes Auto (Bld) [#/Vo l]Ordered By: Stephane Alonso on 08-07-2023 Lymphocytes (Bld) [#/Vol] 2.2 10*3/uL 1.00-4.8 [facility] Lymphocytes/100 WBC Auto (Bl d)Ordered By: Stephane Alonso on 08-07-2023 Lymphocytes/100 WBC (Bld) 23.3 % . [facility] MCH Auto (RBC) [Entitic mass ]Ordered By: Stephane Alonso on 08-07-2023 MCH (RBC) [Entitic mass] 30.3 pg 24.7-34.3 [facility] MCHC Auto (RBC) [Mass/Vol]Or dered By: Stephane Alonso on 08-07-2023 MCHC (RBC) [Mass/Vol] 34.8 g/dL 32.0-35.0 [facility] MCV Auto (RBC) [Entitic vol] Ordered By: Stephane Alonso on 08-07-2023 MCV (RBC) [Entitic vol] 87.0 fL 80-100 [facility] Monocyte distribution width [Entitic volume] in Blood by AutomatedOrdered By: Stephane Alonso on 08-07-2023 Monocyte distribution width Auto (Bld) [Entitic vol] 17.73 % 0.00-20.00 [facility] Monocytes Auto (Bld) [#/Vol] Ordered By: Stephane Alonso on 08-07-2023 Monocytes (Bld) [#/Vol] 0.5 10*3/uL 0.0-0.8 [facility] Monocytes/100 WBC Auto (Bld) Ordered By: Stephane Alonso on 08-07-2023 Monocytes/100 WBC (Bld) 5.4 % . [facility] Neutrophils Auto (Bld) [#/Vo l]Ordered By: Stephane Alonso on 08-07-2023 Neutrophils (Bld) [#/Vol] 6.6 10*3/uL 1.8-7.7 [facility] Neutrophils/100 WBC Auto (Bl d)Ordered By: Stephane Alonso on 08-07-2023 Neutrophils/100 WBC (Bld) 70.0 % . [facility] No Panel InformationOrdered By: Stephane Alonso on 08-07-2023 Blood Gas Critical Value See comment [facility] Comment on above: Critical Value ramey d on: 08/07/2023 at 09:56 Blood Gas Sample Site Venous Fir [facility] FiO2 21 % [facility] Venous Blood Base Excess -3.2 mmol/L -3.0-3.0 [facility] Venous Blood Oxygen Content 9.0 mmol/L 6.6-9.7 [facility] Venous Blood Oxygen Saturation 96.4 % 73.0-76.0 [facility] Venous Blood Partial Pressure CO2 32.7 mm[Hg] 38.0-50.0 [facility] Venous Blood Partial Pressure O2 81.9 mm[Hg] 35.0-45.0 [facility] Venous Blood pH 7.41 7.32-7.43 [facility] Estimated GFR (CKD-EPI) > 60.0 mL/Min [facility] Pharmacy Creatinine Clearance (Chem 152.76 [facility] Nucleated erythrocytes [Pres ence] in Blood by Automated countOrdered By: Stephane Alonso on 08-07-2023 Nucleated RBC Auto Ql (Bld) 0.1 /100{WBC} 0-0.5 [facility] Platelet mean volume Auto (B ld) [Entitic vol]Ordered By: Stephane Alonso on 08-07-2023 Platelet mean volume (Bld) [Entitic vol] 7.9 fL 6.3-10.7 [facility] Platelets Auto (Bld) [#/Vol] Ordered By: Stephane Alonso on 08-07-2023 Platelets (Bld) [#/Vol] 349 10*3/uL 150-450 [facility] Potassium [Moles/volume] in Serum or PlasmaOrdered By: Stephane Alonso on 08-07-2023 Potassium [Moles/Vol] 4.2 mmol/L 3.5-5.1 [facility] Protein [Mass/volume] in Ser um or PlasmaOrdered By: Stephane Alonso on 08-07-2023 Protein [Mass/Vol] 7.1 g/dL 6.4-8.9 [facility] Prothrombin time (PT)Ordered By: Stephane Alonso on 08-07-2023 PT Coag (PPP) [Time] 11.1 s 9.0-12.9 [facility] Comment on above: A hematocrit value g reater than 55% may lead to inaccurate results in coagulation testing. Patients having hematocrit values >55% require a special collection tube for coagulation studies. Please contact the laboratory at [phone] for redraw instructions. RBC Auto (Bld) [#/Vol]Ordere d By: Stephane Alonso on 08-07-2023 RBC (Bld) [#/Vol] 4.87 10*6/uL 3.60-5.00 [facility] Serum or plasma albumin/glob ulin mass ratioOrdered By: Stephane Alonso on 08-07-2023 Albumin/Globulin [Mass ratio] 1.4 {ratio} [facility] Serum or plasma anion gap de terminationOrdered By: Stephane Alonso on 08-07-2023 Anion gap [Moles/Vol] 13.2 mmol/L 6.0-15.0 [facility] Sodium [Moles/volume] in Ser um or PlasmaOrdered By: Stephane Alonso on 08-07-2023 Sodium [Moles/Vol] 133 mmol/L 136-145 [facility] Urea nitrogen [Mass/volume] in Serum or PlasmaOrdered By: Stephane Alonso on 08-07-2023 Urea nitrogen [Mass/Vol] 11 mg/dL 7-25 [facility] WBC Auto (Bld) [#/Vol]Ordere d By: Stephane Alonso on 08-07-2023 WBC (Bld) [#/Vol] 9.5 10*3/uL 3.8-11.6 [facility] Laboratory - Cytologyon [employer] Cyto stain Nom (Cvx/Vag) [ID] [facility] Comment on above: Reference Range: ZL, CT(ASCP) CT screening location: [facility], [address] [place] [address], [place] [address]. Cytology study comment Cyto stain Chris (Cvx/Vag) [Interp] [facility] Comment on above: This Pap test has be en evaluated with computer assisted technology. Microscopic observation Cyto stain Nom (Cvx) [facility] Comment on above: Cytology Results: Ne gative for intraepithelial lesion or malignancy. Specimen source Cyto stain Nom (Cvx/Vag) [facility] Comment on above: None given Statement of adequacy Cyto stain (Cvx/Vag) [Interp] [facility] Comment on above: Satisfactory for travis luation. Endocervical/transformation zone component present. Laboratory - Microbiology an d Antimicrobial susceptibilityon 07-10-2023 HPV E6+E7 mRNA HARJINDER+probe Ql (Cvx) Not detected Not Detected [facility] Comment on above: Methodology: Transcr iption-Mediated Amplification This assay detects E6/E7 viral messenger RNA (mRNA) from 14 high-risk HPV types (16,18,31,33,35,39,45,51,52,56,58,59,66,68). Cervical sources are required for HPV testing. If a vaginal source from a patient who has had a total hysterectomy with removal of cervix was submitted, please contact the testing laboratory for alternative testing options. For additional information, please refer to http://education.MTailor/faq/QEL840f7 (This link if provided for information/ educational purposes only.) No Panel Informationon 07-10 (ALWAYS MESSAGE) [facility] Comment on above: EXPLANATORY NOTE: The Pap is a screening test for cervical cancer. It is not a diagnostic test and is subject to false negative and false positive results. It is most reliable when a satisfactory sample, regularly obtained, is submitted with relevant clinical findings and history, and when the Pap result is evaluated along with historic and current clinical information. Clinical information [facility] Comment on above: None given Date of previous biopsy [facility] Comment on above: None given Date of previous PAP smear [facility] Comment on above: None given Last menstrual period start date [facility] Comment on above: None given Performing Organizat ion Information Site ID: [id number] Name: [facility] Address: [address] [place] [address], [address] [place] [id number] Director: Aj Avila MD [facility] Alanine aminotransferase [En zymatic activity/volume] in Serum or PlasmaOrdered By: Molly Elaine on 06-19-2023 ALT [Catalytic activity/Vol] 27 U/L 7-52 [facility] Albumin [Mass/volume] in Ser um or Plasma by Bromocresol green (BCG) dye binding methoOrdered By: Molly Elaine on 06-19-2023 Albumin BCG dye [Mass/Vol] 4.1 g/dL 3.5-5.7 [facility] Alkaline phosphatase [Enzyma tic activity/volume] in Serum or PlasmaOrdered By: Molly Elaine on 06-19-2023 ALP [Catalytic activity/Vol] 72 U/L 34-104 [facility] Aspartate aminotransferase [ Enzymatic activity/volume] in Serum or PlasmaOrdered By: Molly Elaine on 06-19-2023 AST [Catalytic activity/Vol] 18 U/L 13-39 [facility] Bilirubin.total [Mass/volume ] in Serum or PlasmaOrdered By: Molly Elaine on 06-19-2023 Bilirubin [Mass/Vol] 0.4 mg/dL 0.3-1.0 [facility] Calcium [Mass/volume] in Ser um or PlasmaOrdered By: Molly Elaine on 06-19-2023 Calcium [Mass/Vol] 8.8 mg/dL 8.6-10.3 [facility] Carbon dioxide, total [Moles /volume] in Serum or PlasmaOrdered By: Molly Elaine on 06-19-2023 CO2 [Moles/Vol] 25.9 mmol/L 21.0-31.0 [facility] Chloride [Moles/volume] in S zaria or PlasmaOrdered By: Molly Elaine on 06-19-2023 Chloride [Moles/Vol] 102 mmol/L 98-107 [facility] Cholesterol [Mass/volume] in Serum or PlasmaOrdered By: Molly Elaine on 06-19-2023 Cholesterol [Mass/Vol] 128 mg/dL 140-200 [facility] Comment on above: Chol less than 200 m g/dl low riskChol 201-239 mg/dl borderline riskChol 240 mg/dl and greater high risk Cholesterol in LDL Calc [Mas s/Vol]Ordered By: Molly Elaine on 06-19-2023 Cholesterol in LDL [Mass/Vol] 58 mg/dL 0-100 [facility] Comment on above: LDL ATP III CLASSIFI CATIONLDL less than 100 mg/dL OptimalLDL 100-129 mg/dL Near or above optimalLDL 130-159 mg/dL Borderline highLDL 160-189 mg/dL HighLDL greater than 189 mg/dL Very high Cholesterol in VLDL Calc [Ma ss/Vol]Ordered By: Molly Elaine on 06-19-2023 Cholesterol in VLDL [Mass/Vol] 35 mg/dL [facility] Creatinine [Mass/volume] in Serum or PlasmaOrdered By: Molly Elaine on 06-19-2023 Creatinine [Mass/Vol] 0.53 mg/dL 0.60-1.20 [facility] Erythrocyte distribution wid th Auto (RBC) [Ratio]Ordered By: Molly Elaine on 06-19-2023 Erythrocyte distribution width (RBC) [Ratio] 12.9 % 11.9-15.3 [facility] Globulin Calc (S) [Mass/Vol] Ordered By: Molly Elaine on 06-19-2023 Globulin (S) [Mass/Vol] 2.3 g/dL [facility] Glucose [Mass/volume] in Ser um or PlasmaOrdered By: Molly Elaine on 06-19-2023 Glucose [Mass/Vol] 275 mg/dL 70-100 [facility] Comment on above: ADA recommended refe rence rangeRandom Glucose Reference Range is dependent on time and content of last meal. Glucose of more than 200 mg/dL in a nonstressed, ambulatory subject supports the diagnosis of Diabetes Mellitus. Hematocrit Auto (Bld) [Volum e fraction]Ordered By: Molly Elaine on 06-19-2023 Hematocrit (Bld) [Volume fraction] 41.8 % 34.0-46.4 [facility] Hemoglobin [Mass/volume] in BloodOrdered By: Molly Elaine on 06-19-2023 Hemoglobin (Bld) [Mass/Vol] 14.6 g/dL 11.8-15.4 [facility] Leukocytes [#/volume] correc jacy for nucleated erythrocytes in Blood by Automated counOrdered By: Molly Elaine on 06-19-2023 WBC corrected for nucl RBC Auto (Bld) [#/Vol] 8.1 10*3/uL 3.8-11.6 [facility] MCH Auto (RBC) [Entitic mass ]Ordered By: Molly Elaine on 06-19-2023 MCH (RBC) [Entitic mass] 30.9 pg 24.7-34.3 [facility] MCHC Auto (RBC) [Mass/Vol]Or dered By: Molly Elaine on 06-19-2023 MCHC (RBC) [Mass/Vol] 34.8 g/dL 32.0-35.0 [facility] MCV Auto (RBC) [Entitic vol] Ordered By: Molly Elaine on 06-19-2023 MCV (RBC) [Entitic vol] 88.6 fL 80-100 [facility] No Panel InformationOrdered By: Molly Elaine on 06-19-2023 Estimated GFR (CKD-EPI) > 60.0 mL/Min [facility] Free Thyroxine (T4) Direct 7.8 ug/dL 4.5-12.0 [facility] Comment on above: Performed at: [facility] [id number] [place], [place] [id number] Director: Oniel Saldana PhD, Phone: [phone] Pharmacy Creatinine Clearance (Chem N/A [facility] Platelet mean volume Auto (B ld) [Entitic vol]Ordered By: Molly Elaine on 06-19-2023 Platelet mean volume (Bld) [Entitic vol] 8.2 fL 6.3-10.7 [facility] Platelets Auto (Bld) [#/Vol] Ordered By: Molly Elaine on 06-19-2023 Platelets (Bld) [#/Vol] 276 10*3/uL 150-450 [facility] Potassium [Moles/volume] in Serum or PlasmaOrdered By: Molly Elaine on 06-19-2023 Potassium [Moles/Vol] 4.3 mmol/L 3.5-5.1 [facility] Protein [Mass/volume] in Ser um or PlasmaOrdered By: Molly Elaine on 06-19-2023 Protein [Mass/Vol] 6.4 g/dL 6.4-8.9 [facility] RBC Auto (Bld) [#/Vol]Ordere d By: Molly Elaine on 06-19-2023 RBC (Bld) [#/Vol] 4.72 10*6/uL 3.60-5.00 [facility] Serum or plasma albumin/glob ulin mass ratioOrdered By: Molly Elaine on 06-19-2023 Albumin/Globulin [Mass ratio] 1.8 {ratio} [facility] Serum or plasma anion gap de terminationOrdered By: Molly Elaine on 06-19-2023 Anion gap [Moles/Vol] 12.4 mmol/L 6.0-15.0 [facility] Serum or plasma high density lipoprotein (HDL) cholesterol measurementOrdered By: Molly Elaine on 06-19-2023 Cholesterol in HDL [Mass/Vol] 35 mg/dL 23-92 [facility] Comment on above: HDL CHOL ATP-III CLA SSIFICATION Cardiovascular RiskHDL > or equal to 60 mg/dL LOWHDL < 40 mg/dL HIGH Serum or plasma total choles terol/high density lipoprotein (HDL) cholesterol mass ratOrdered By: Molly Elaine on 06-19-2023 Cholesterol.total/Chol esterol in HDL [Mass ratio] 3.7 {ratio} <5.0 [facility] Sodium [Moles/volume] in Ser um or PlasmaOrdered By: Molly Elaine on 06-19-2023 Sodium [Moles/Vol] 136 mmol/L 136-145 [facility] Thyrotropin [Units/volume] i n Serum or PlasmaOrdered By: Molly Elaine on 06-19-2023 TSH Qn 5.40 m[IU]/L 0.45-5.33 [facility] Triglyceride [Mass/volume] i n Serum or PlasmaOrdered By: Molly Elaine on 06-19-2023 Triglyceride [Mass/Vol] 177 mg/dL 0-149 [facility] Comment on above: TRIG ATP III CLASSIF ICATIONTRIG less than 150 mg/dL NormalTRIG 150-199 mg/dL Borderline highTRIG 200-500 mg/dL High TRIG greater than 500 mg/dL Very highStandard traceable to the Center for Disease Conrtrol and Prevention (CDC) test method. Triiodothyronine (T3) [Mass/ volume] in Serum or PlasmaOrdered By: Molly Elaine on 06-19-2023 T3 [Mass/Vol] 1.34 ng/mL 0.87-1.78 [facility] Urea nitrogen [Mass/volume] in Serum or PlasmaOrdered By: Molly Elaine on 06-19-2023 Urea nitrogen [Mass/Vol] 11 mg/dL 7-25 [facility] A1C HEMOGLOBINon 06-05-2023 HbA1c (Bld) [Mass fraction] 10.6 % [employer] Other HbA1c (Bld) [Mass fraction]o n 06-05-2023 A1C HEMOGLOBIN [employer] Other A1C HEMOGLOBINon 10-02-2022 HbA1c (Bld) [Mass fraction] 7.0 % [employer] Other Alanine aminotransferase [En zymatic activity/volume] in Serum or PlasmaOrdered By: Molly Elaine on 10-02-2022 ALT [Catalytic activity/Vol] 69 U/L 7-52 [facility] Albumin [Mass/volume] in Ser um or Plasma by Bromocresol green (BCG) dye binding methoOrdered By: Molly Elaine on 10-02-2022 Albumin BCG dye [Mass/Vol] 3.9 g/dL 3.5-5.7 [facility] Alkaline phosphatase [Enzyma tic activity/volume] in Serum or PlasmaOrdered By: Molly Elaine on 10-02-2022 ALP [Catalytic activity/Vol] 75 U/L 34-104 [facility] Aspartate aminotransferase [ Enzymatic activity/volume] in Serum or PlasmaOrdered By: Molly Elaine on 10-02-2022 AST [Catalytic activity/Vol] 30 U/L 13-39 [facility] Bilirubin.total [Mass/volume ] in Serum or PlasmaOrdered By: Molly Elaine on 10-02-2022 Bilirubin [Mass/Vol] 0.3 mg/dL 0.3-1.0 [facility] Calcium [Mass/volume] in Ser um or PlasmaOrdered By: Molly Elaine on 10-02-2022 Calcium [Mass/Vol] 8.6 mg/dL 8.6-10.3 [facility] Carbon dioxide, total [Moles /volume] in Serum or PlasmaOrdered By: Molly Elaine on 10-02-2022 CO2 [Moles/Vol] 28.2 mmol/L 21.0-31.0 [facility] Chloride [Moles/volume] in S zaria or PlasmaOrdered By: Molly Elaine on 10-02-2022 Chloride [Moles/Vol] 100 mmol/L 98-107 [facility] Cholesterol [Mass/volume] in Serum or PlasmaOrdered By: Molly Elaine on 10-02-2022 Cholesterol [Mass/Vol] 138 mg/dL 140-200 [facility] Comment on above: Chol less than 200 m g/dl low riskChol 201-239 mg/dl borderline riskChol 240 mg/dl and greater high risk Cholesterol in LDL Calc [Mas s/Vol]Ordered By: Molly Elaine on 10-02-2022 Cholesterol in LDL [Mass/Vol] 56 mg/dL 0-100 [facility] Comment on above: LDL ATP III CLASSIFI CATIONLDL less than 100 mg/dL OptimalLDL 100-129 mg/dL Near or above optimalLDL 130-159 mg/dL Borderline highLDL 160-189 mg/dL HighLDL greater than 189 mg/dL Very high Cholesterol in VLDL Calc [Ma ss/Vol]Ordered By: Molly Elaine on 10-02-2022 Cholesterol in VLDL [Mass/Vol] 38 mg/dL [facility] [facility] Creatinine [Mass/volume] in Serum or PlasmaOrdered By: Molly Elaine on 10-02-2022 Creatinine [Mass/Vol] 0.66 mg/dL 0.60-1.20 [facility] Erythrocyte distribution wid th Auto (RBC) [Ratio]Ordered By: Molly Elaine on 10-02-2022 Erythrocyte distribution width (RBC) [Ratio] 13.1 % 11.9-15.3 [facility] Globulin Calc (S) [Mass/Vol] Ordered By: Molly Elaine on 10-02-2022 Globulin (S) [Mass/Vol] 2.6 g/dL [facility] Glucose [Mass/volume] in Ser um or PlasmaOrdered By: Molly Elaine on 10-02-2022 Glucose [Mass/Vol] 288 mg/dL 70-100 [facility] Comment on above: ADA recommended refe rence rangeRandom Glucose Reference Range is dependent on time and content of last meal. Glucose of more than 200 mg/dL in a nonstressed, ambulatory subject supports the diagnosis of Diabetes Mellitus. HbA1c (Bld) [Mass fraction]o n 10-02-2022 A1C HEMOGLOBIN [email or web address] Other Hematocrit Auto (Bld) [Volum e fraction]Ordered By: Molly Elaine on 10-02-2022 Hematocrit (Bld) [Volume fraction] 40.2 % 34.0-46.4 [facility] Hemoglobin [Mass/volume] in BloodOrdered By: Molly Elaine on 10-02-2022 Hemoglobin (Bld) [Mass/Vol] 13.7 g/dL 11.8-15.4 [facility] Leukocytes [#/volume] correc jacy for nucleated erythrocytes in Blood by Automated counOrdered By: Molly Elaine on 10-02-2022 WBC corrected for nucl RBC Auto (Bld) [#/Vol] 8.2 10*3/uL 3.8-11.6 [facility] MCH Auto (RBC) [Entitic mass ]Ordered By: Molly Elaine on 10-02-2022 MCH (RBC) [Entitic mass] 31.2 pg 24.7-34.3 [facility] MCHC Auto (RBC) [Mass/Vol]Or dered By: Molly Elaine on 10-02-2022 MCHC (RBC) [Mass/Vol] 34.0 g/dL 32.0-35.0 [facility] MCV Auto (RBC) [Entitic vol] Ordered By: Molly Elaine on 10-02-2022 MCV (RBC) [Entitic vol] 91.8 fL 80-100 [facility] No Panel InformationOrdered By: Molly Elaine on 10-02-2022 Estimated GFR (CKD-EPI) > 60.0 mL/Min [facility] Pharmacy Creatinine Clearance (Chem N/A [facility] Platelet mean volume Auto (B ld) [Entitic vol]Ordered By: Molly Elaine on 10-02-2022 Platelet mean volume (Bld) [Entitic vol] 7.6 fL 6.3-10.7 [facility] Platelets Auto (Bld) [#/Vol] Ordered By: Molly Elaine on 10-02-2022 Platelets (Bld) [#/Vol] 279 10*3/uL 150-450 [facility] Potassium [Moles/volume] in Serum or PlasmaOrdered By: Molly Elaine on 10-02-2022 Potassium [Moles/Vol] 4.3 mmol/L 3.5-5.1 [facility] Protein [Mass/volume] in Ser um or PlasmaOrdered By: Molly Elaine on 10-02-2022 Protein [Mass/Vol] 6.5 g/dL 6.4-8.9 [facility] RBC Auto (Bld) [#/Vol]Ordere d By: Molly Elaine on 10-02-2022 RBC (Bld) [#/Vol] 4.38 10*6/uL 3.60-5.00 [facility] Serum or plasma albumin/glob ulin mass ratioOrdered By: Molly Elaine on 10-02-2022 Albumin/Globulin [Mass ratio] 1.5 {ratio} [facility] Serum or plasma anion gap de terminationOrdered By: Molly Elaine on 10-02-2022 Anion gap [Moles/Vol] 11.1 mmol/L 6.0-15.0 [facility] Serum or plasma high density lipoprotein (HDL) cholesterol measurementOrdered By: Molly Elaine on 10-02-2022 Cholesterol in HDL [Mass/Vol] 43 mg/dL 35-85 [facility] Comment on above: HDL CHOL ATP-III CLA SSIFICATION Cardiovascular RiskHDL > or equal to 60 mg/dL LOWHDL < 40 mg/dL HIGH Serum or plasma total choles terol/high density lipoprotein (HDL) cholesterol mass ratOrdered By: Molly Elaine on 10-02-2022 Cholesterol.total/Chol esterol in HDL [Mass ratio] 3.2 {ratio} <5.0 [facility] Sodium [Moles/volume] in Ser um or PlasmaOrdered By: Molly Elaine on 10-02-2022 Sodium [Moles/Vol] 135 mmol/L 136-145 [facility] Triglyceride [Mass/volume] i n Serum or PlasmaOrdered By: Molly Elaine on 10-02-2022 Triglyceride [Mass/Vol] 193 mg/dL 0-149 [facility] Comment on above: TRIG ATP III CLASSIF ICATIONTRIG less than 150 mg/dL NormalTRIG 150-199 mg/dL Borderline highTRIG 200-500 mg/dL High TRIG greater than 500 mg/dL Very highStandard traceable to the Center for Disease Conrtrol and Prevention (CDC) test method. Urea nitrogen [Mass/volume] in Serum or PlasmaOrdered By: Molly Elaine on 10-02-2022 Urea nitrogen [Mass/Vol] 7 mg/dL 7-25 [facility] Activated partial thrombopla stin time (aPTT) in platelet poor plasma by coagulation aOrdered By: Earnestine Alonso on 04-04-2022 aPTT Coag (PPP) [Time] 28.6 s 25.1-36.5 [facility] Basophils Auto (Bld) [#/Vol] Ordered By: Earnestine Alonso on 04-04-2022 Basophils (Bld) [#/Vol] 0.1 10*3/uL 0.0-0.2 [facility] Basophils/100 WBC Auto (Bld) Ordered By: Earnestine Alonso on 04-04-2022 Basophils/100 WBC (Bld) 1.4 % . [facility] Creatine kinase [Enzymatic a ctivity/volume] in Serum or PlasmaOrdered By: Earnestine Alonso on 04-04-2022 CK [Catalytic activity/Vol] 45 U/L 22-269 [facility] Creatinine and Glomerular fi ltration rate.predicted panel (S/P/Bld)Ordered By: Earnestine Alonso on 04-04-2022 Creatinine [Mass/Vol] 0.54 mg/dL 0.44-1.03 [facility] Eosinophils Auto (Bld) [#/Vo l]Ordered By: Earnestine Alonso on 04-04-2022 Eosinophils (Bld) [#/Vol] 0.2 10*3/uL 0.0-0.45 [facility] Eosinophils/100 WBC Auto (Bl d)Ordered By: Earnestine Alonso on 04-04-2022 Eosinophils/100 WBC (Bld) 1.6 % . [facility] Erythrocyte distribution wid th Auto (RBC) [Ratio]Ordered By: Earnestine Alonso on 04-04-2022 Erythrocyte distribution width (RBC) [Ratio] 13.6 % 11.9-15.3 [facility] Estimated glomerular filtrat ion rate (GFR) non- AmericanOrdered By: Earnestine Alonso on 04-04-2022 GFR/1.73 sq M.predicted among non-blacks MDRD (S/P/Bld) [Vol rate/Area] > 60 mL/Min [facility] Hematocrit Auto (Bld) [Volum e fraction]Ordered By: Earnestine Alonso on 04-04-2022 Hematocrit (Bld) [Volume fraction] 40.6 % 34.0-46.4 [facility] Hemoglobin [Mass/volume] in BloodOrdered By: Earnestine Alonso on 04-04-2022 Hemoglobin (Bld) [Mass/Vol] 14.0 g/dL 11.8-15.4 [facility] Laboratory - Chemistry and C hemistry - challengeOrdered By: Earnestine Alonso on 04-04-2022 Natriuretic peptide B (Bld) [Mass/Vol] 109.0 pg/mL 5-100 [facility] Laboratory - CoagulationOrde red By: Earnestine Alonso on 04-04-2022 PT Coag (PPP) [Time] 12.0 s 9.0-12.9 [facility] - Hematology and Cell countsOrdered By: Earnestine Alonso on 04-04-2022 Nucleated RBC/100 WBC (Bld) [Ratio] 0.0 % 0-0.5 [facility] Leukocytes [#/volume] in Blo od by Automated countOrdered By: Earnestine Alonso on 04-04-2022 WBC (Bld) [#/Vol] 9.8 10*3/uL 4.5-11.0 [facility] Lymphocytes Auto (Bld) [#/Vo l]Ordered By: Earnestine Alonso on 04-04-2022 Lymphocytes (Bld) [#/Vol] 2.2 10*3/uL 1.00-4.8 [facility] Lymphocytes/100 WBC Auto (Bl d)Ordered By: Earnestine Alonso on 04-04-2022 Lymphocytes/100 WBC (Bld) 22.5 % . [facility] MCH Auto (RBC) [Entitic mass ]Ordered By: Earnestine Alonso on 04-04-2022 MCH (RBC) [Entitic mass] 30.7 pg 24.7-34.3 [facility] MCHC Auto (RBC) [Mass/Vol]Or dered By: Earnestine Alonso on 04-04-2022 MCHC (RBC) [Mass/Vol] 34.3 g/dL 32.0-35.0 [facility] MCV Auto (RBC) [Entitic vol] Ordered By: Earnestine Alonso on 04-04-2022 MCV (RBC) [Entitic vol] 89.5 fL 80-100 [facility] Monocytes Auto (Bld) [#/Vol] Ordered By: Earnestine Alonso on 04-04-2022 Monocytes (Bld) [#/Vol] 0.8 10*3/uL 0.0-0.8 [facility] Monocytes/100 WBC Auto (Bld) Ordered By: Earnestine Alonso on 04-04-2022 Monocytes/100 WBC (Bld) 7.9 % . [facility] Neutrophils Auto (Bld) [#/Vo l]Ordered By: Earnestine Alonso on 04-04-2022 Neutrophils (Bld) [#/Vol] 6.5 10*3/uL 1.8-7.7 [facility] Neutrophils/100 WBC Auto (Bl d)Ordered By: Earnestine Alonso on 04-04-2022 Neutrophils/100 WBC (Bld) 66.6 % . [facility] No Panel InformationOrdered By: Earnestine Alonso on 04-04-2022 Estimated GFR () > 60 mL/Min [facility] Comment on above: GFR estimated refere nce range: According to KDOQI guidelines, <60 ml/min/1.73m2 is sufficient to diagnose a patient with chronic kidney disease. Pharmacy Creatinine Clearance (Chem 160.90 [facility] Platelet mean volume Auto (B ld) [Entitic vol]Ordered By: Earnestine Alonso on 04-04-2022 Platelet mean volume (Bld) [Entitic vol] 7.7 fL 6.3-10.7 [facility] Platelet poor plasma interna tional normalized ratio (INR) by coagulation assay (relatOrdered By: Earnestine Alonso on 04-04-2022 INR Coag (PPP) [Relative time] 1.1 {INR} [facility] Comment on above: INR Therapeutic Rang e A) Pre- and Peroperative OAT started two weeks before surgery. NOT HIP SURGERY: 1.5 - 2.5 HIP SURGERY: 2 - 3B) Primary and secondary prevention of venous THROMBOSIS: 2 - 3C) Active venous thrombosis, pulmonary embolismand prevention of recurrent venous thrombosis: 2 - 3D) Prevention of arterial thromboembolismincluding patients with mechanical heart valves: 3 - 4.5 Platelets Auto (Bld) [#/Vol] Ordered By: Earnestine Alonso on 04-04-2022 Platelets (Bld) [#/Vol] 319 10*3/uL 150-450 [facility] RBC Auto (Bld) [#/Vol]Ordere d By: Earnestine Alonso on 04-04-2022 RBC (Bld) [#/Vol] 4.54 10*6/uL 3.60-5.00 [facility] Serum or plasma anion gap de terminationOrdered By: Earnestine Alonso on 04-04-2022 Anion gap [Moles/Vol] 11.5 mmol/L 6.0-15.0 [facility] Serum or plasma calcium anuradha urement (mass/volume)Ordered By: Earnestine Alonso on 04-04-2022 Calcium [Mass/Vol] 8.9 mg/dL 8.2-10.2 [facility] Serum or plasma chloride vinicio surement (moles/volume)Ordered By: Earnestine Alonso on 04-04-2022 Chloride [Moles/Vol] 106 mmol/L 95-114 [facility] Serum or plasma creatine kin ase MB (CKMB)/total creatine kinase (CK) ratio by calculaOrdered By: Earnestine Alonso on 04-04-2022 CK.MB Calc [Catalytic fraction] 2.2 % 0.00-2.50 [facility] Serum or plasma creatine kin ase MB measurement (mass/volume)Ordered By: Earnestine Alonso on 04-04-2022 CK.MB [Mass/Vol] 1.0 ng/mL 0.6-6.3 [facility] Serum or plasma glucose anuradha urement (mass/volume)Ordered By: Earnestine Alonso on 04-04-2022 Glucose [Mass/Vol] 128 mg/dL 70-100 [facility] Comment on above: ADA recommended refe rence rangeRandom Glucose Reference Range is dependent on time and content of last meal. Glucose of more than 200 mg/dL in a nonstressed, ambulatory subject supports the diagnosis of Diabetes Mellitus. Serum or plasma potassium me asurement (moles/volume)Ordered By: Earnestine Alonso on 04-04-2022 Potassium [Moles/Vol] 4.0 mmol/L 3.5-5.1 [facility] Serum or plasma sodium measu rement (moles/volume)Ordered By: Earnestine Alonso on 04-04-2022 Sodium [Moles/Vol] 136 mmol/L 136-146 [facility] Serum or plasma total carbon dioxide measurement (moles/volume)Ordered By: Earnestine Alonso on 04-04-2022 CO2 [Moles/Vol] 22.5 mmol/L 22.0-30.0 [facility] Serum or plasma urea nitroge n measurement (mass/volume)Ordered By: Earnestine Alonso on 04-04-2022 Urea nitrogen [Mass/Vol] 6 mg/dL 9- [facility] Troponin I.cardiac [Mass/vol ume] in Serum or Plasma by High sensitivity methodOrdered By: Earnestine Alonso on 04-04-2022 Troponin I.cardiac High sensitivity method [Mass/Vol] < 3 pg/mL 0-15 [facility] Office Visit (Cardiology)on 01-31-2022 Follow-up visit Diagnoses/Problems Assessed NSTEMI, initial episode of care (410.71) (I21.4) Diabetes (250.00) (E11.9) 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) Current every day smoker (305.1) (F17.200) 1 PPD Morbid obesity with BMI of 40.0-44.9, adult (278.01,V85.41) (E66.01,Z68.41) Orders Morbid obesity with BMI of 40.0-44.9, adult Healthy Weight Tips; Status:Complete - Retrospective Authorization; Done: [id number] Some eating tips that can help you lose weight.; Status:Complete - Retrospective Authorization; Done: [id number] NSTEMI, initial episode of care Cardiac Rehab Referral Evaluation and Treatment Evaluate AND Treat Status: Hold For - Scheduling,Retrospective Authorization Requested for: [id number] Agreement : I agree to have my patient participate in the phase III outpatient cardiac rehabilitation program after completion of the phase II program. Consent : I consent to have my patient participate in the cardiac rehabilitation program. I will continue regular medical care of my patient throughout his/her participation in the program. Individualized Treatment Plan and Exercise Prescription : Defer the patients ITP and exercise prescription to be developed by the staff for your review and approval I authorize the Cardiac Rehabilitation Department to : Current lab values are helpful in order to assess the lipid status and individualize diet therapy. A venous blood sample will be drawn and lipids analyzed at the laboratory I authorize the Cardiac Rehabilitation Department to : Schedule a symptom limited graded exercise test with 12 lead ECG prior to starting cardiac rehabilitation and at discharge, if needed. SocHx: Current every day smoker You need to stop smoking. Though it is not easy, more than half of all adult smokers have quit. We encourage you to write down all the reasons you should quit smoking and set a quit date for yourself. Ask us how we can help. You may also call 0-177-QWESThe [employer] GroupNOW for free resources and assistance.; Status:Complete - Retrospective Authorization; Done: [id number] Tobacco Use Screening; Status:Complete; Done: [id number] Patient Instructions Please bring all medicines, vitamins, and herbal supplements with you when you come to the office. Prescriptions will not be filled unless you are compliant with your follow up appointments or have a follow up appointment scheduled as per instruction of your physician. Refills should be requested at the time of your visit. Follow up as needed only Chief Complaint NATIVIDAD BONNER is being seen for [facility] D/C 01/22 Cath. 36-year-old female who returns following recent non-ST elevation myocardial infarction, catheterization revealed minimal coronary artery disease normal left ventricular function. 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 She continues with tobacco use we have counseled her on tobacco cessation for 3 minutes today We reviewed her coronary angiography and anatomy, as well as potential etiologies for her non-ST elevation CA event including syndrome X. Recommendations, continued current therapies, she can follow-up as needed, refer to cardiac rehab for ongoing post ACS rehabilitation, exercise, dietary discretion, weight loss counseling and smoking cessation counseling performed. Current Meds Medication NameInstruction Albuterol Sulfate HFA 108 (90 Base) MCG/ACT Inhalation Aerosol SolutionUSE 2 PUFFS EVERY 6 HOURS DIRECTED. Aspirin EC 81 MG Oral Tablet Delayed ReleaseTAKE 1 TABLET DAILY DIRECTED. Atenolol 50 MG Oral TabletTAKE 1 TABLET DAILY. busPIRone HCl - 10 MG Oral TabletTAKE 1 TABLET TWICE DAILY. Dulera 200-5 MCG/ACT Inhalation AerosolINHALE 2 PUFFS TWICE DAILY. Januvia 100 MG Oral TabletTAKE 1 TABLET DAILY. Latuda 120 MG Oral Tabletone tablet daily Lipitor 40 MG Oral TabletTAKE 1 TABLET BY MOUTH EVERYDAY AT BEDTIME metFORMIN HCl - 500 MG Oral Tablettake 1 tablet by mouth twice a day with food Suboxone 2-0.5 MG Sublingual Filmsublingual at bedtime Suboxone 4-1 MG Sublingual FilmOnce daily Vistaril 50 MG Oral CapsuleTAKE 1 CAPSULE 3 TIMES DAILY NEEDED. 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 Cardiovascular: no intermittent leg claudication and as noted in HPI. Respiratory: no cough and no shortness of breath. Gastrointestinal: no change in bowel habits and no blood in stools. Integumentary: no skin rashes. Neurological: no seizures and no frequent falls. All other systems have been reviewed and are negative for complaint. Vitals Vital Signs Recorded: [id number] 10:50AM Heart Ra (more content not included)... [facility] Tobacco Screening.on 022 Tobacco use status [facility] a) Yes -[facility] [facility] [address] DO Work Phone: Tobacco Screening. Yes [facility] [facility] [address] DO Work Phone: Activated partial thrombopla stin time (aPTT) in platelet poor plasma by coagulation aOrdered By: Jose Lan on 01-22-2022 aPTT Coag (PPP) [Time] 61.9 s 25.1-36.5 [facility] Creatinine and Glomerular fi ltration rate.predicted panel (S/P/Bld)Ordered By: Jose Lan on 01-22-2022 Creatinine [Mass/Vol] 0.72 mg/dL 0.44-1.03 [facility] Estimated glomerular filtrat ion rate (GFR) non- AmericanOrdered By: Jose Lan on 01-22-2022 GFR/1.73 sq M.predicted among non-blacks MDRD (S/P/Bld) [Vol rate/Area] > 60 mL/Min [facility] No Panel InformationOrdered By: Jose Lan on 01-22-2022 Estimated GFR () > 60 mL/Min [facility] Comment on above: GFR estimated refere nce range: According to KDOQI guidelines, <60 ml/min/1.73m2 is sufficient to diagnose a patient with chronic kidney disease. Pharmacy Creatinine Clearance (Chem 121.72 [facility] Serum or plasma calcium anuradha urement (mass/volume)Ordered By: Jose Lan on 01-22-2022 Calcium [Mass/Vol] 8.8 mg/dL 8.2-10.2 [facility] Serum or plasma chloride vinicio surement (moles/volume)Ordered By: Jose Lan on 01-22-2022 Chloride [Moles/Vol] 103 mmol/L 95-114 [facility] Serum or plasma glucose anuradha urement (mass/volume)Ordered By: Jose Lan on 01-22-2022 Glucose [Mass/Vol] 171 mg/dL 70-100 [facility] Comment on above: ADA recommended refe rence range Random Glucose Reference Range is dependent on time and content of last meal. Glucose of more than 200 mg/dL in a nonstressed, ambulatory subject supports the diagnosis of Diabetes Mellitus. ADA recommended refe rence rangeRandom Glucose Reference Range is dependent on time and content of last meal. Glucose of more than 200 mg/dL in a nonstressed, ambulatory subject supports the diagnosis of Diabetes Mellitus. Serum or plasma potassium me asurement (moles/volume)Ordered By: Jose Lan on 01-22-2022 Potassium [Moles/Vol] 3.7 mmol/L 3.5-5.1 [facility] Serum or plasma sodium measu rement (moles/volume)Ordered By: Jose Lan on 01-22-2022 Sodium [Moles/Vol] 134 mmol/L 136-146 [facility] Serum or plasma total carbon dioxide measurement (moles/volume)Ordered By: Jose Lan on 01-22-2022 CO2 [Moles/Vol] 22.5 mmol/L 22.0-30.0 [facility] Serum or plasma urea nitroge n measurement (mass/volume)Ordered By: Jose Lan on 01-22-2022 Urea nitrogen [Mass/Vol] 10 mg/dL 02-23 [facility] Basophils Auto (Bld) [#/Vol] Ordered By: Jose Lan on 01-21-2022 Basophils (Bld) [#/Vol] 0.1 10*3/uL 0.0-0.2 [facility] Basophils/100 WBC Auto (Bld) Ordered By: Jose Lan on 01-21-2022 Basophils/100 WBC (Bld) 1.1 % . [facility] Blood hemoglobin measurement (mass/volume)Ordered By: Jose Lan on 01-21-2022 Hemoglobin (Bld) [Mass/Vol] 14.3 g/dL 11.8-15.4 [facility] Blood leukocytes automated c ount (number/volume)Ordered By: Jose Lan on 01-21-2022 WBC (Bld) [#/Vol] 10.3 10*3/uL 4.5-11.0 [facility] Eosinophils Auto (Bld) [#/Vo l]Ordered By: Jose Lan on 01-21-2022 Eosinophils (Bld) [#/Vol] 0.3 10*3/uL 0.0-0.45 [facility] Eosinophils/100 WBC Auto (Bl d)Ordered By: Jose Lan on 01-21-2022 Eosinophils/100 WBC (Bld) 2.9 % . [facility] Erythrocyte distribution wid th Auto (RBC) [Ratio]Ordered By: Jose Lan on 01-21-2022 Erythrocyte distribution width (RBC) [Ratio] 12.5 % 11.9-15.3 [facility] Hematocrit Auto (Bld) [Volum e fraction]Ordered By: Jose Lan on 01-21-2022 Hematocrit (Bld) [Volume fraction] 41.3 % 34.0-46.4 [facility] Laboratory - CoagulationOrde red By: Jose Lan on 01-21-2022 PT Coag (PPP) [Time] 12.8 s 9.0-12.9 [facility] - Hematology and Cell countsOrdered By: Jose Lan on 01-21-2022 Nucleated RBC/100 WBC (Bld) [Ratio] 0.0 % 0-0.5 [facility] Lymphocytes Auto (Bld) [#/Vo l]Ordered By: Jose Lna on 01-21-2022 Lymphocytes (Bld) [#/Vol] 3.3 10*3/uL 1.00-4.8 [facility] Lymphocytes/100 WBC Auto (Bl d)Ordered By: Jose Lan on 01-21-2022 Lymphocytes/100 WBC (Bld) 31.6 % . [facility] MCH Auto (RBC) [Entitic mass ]Ordered By: Jose Lan on 01-21-2022 MCH (RBC) [Entitic mass] 30.9 pg 24.7-34.3 [facility] MCHC Auto (RBC) [Mass/Vol]Or dered By: Jose Lan on 01-21-2022 MCHC (RBC) [Mass/Vol] 34.5 g/dL 32.0-35.0 [facility] MCV Auto (RBC) [Entitic vol] Ordered By: Jose Lan on 01-21-2022 MCV (RBC) [Entitic vol] 89.4 fL 80-100 [facility] Monocytes Auto (Bld) [#/Vol] Ordered By: Jose Lan on 01-21-2022 Monocytes (Bld) [#/Vol] 0.5 10*3/uL 0.0-0.8 [facility] Monocytes/100 WBC Auto (Bld) Ordered By: Jose Lan on 01-21-2022 Monocytes/100 WBC (Bld) 4.6 % . [facility] Neutrophils Auto (Bld) [#/Vo l]Ordered By: Jose Lan on 01-21-2022 Neutrophils (Bld) [#/Vol] 6.2 10*3/uL 1.8-7.7 [facility] Neutrophils/100 WBC Auto (Bl d)Ordered By: Jose Lan on 01-21-2022 Neutrophils/100 WBC (Bld) 59.8 % . [facility] Platelet mean volume Auto (B ld) [Entitic vol]Ordered By: Jose Lan on 01-21-2022 Platelet mean volume (Bld) [Entitic vol] 7.7 fL 6.3-10.7 [facility] Platelet poor plasma interna tional normalized ratio (INR) by coagulation assay (relatOrdered By: Jose Lan on 01-21-2022 INR Coag (PPP) [Relative time] 1.1 {INR} [facility] Comment on above: INR Therapeutic Rang e A) Pre- and Peroperative OAT started two weeks before surgery. NOT HIP SURGERY: 1.5 - 2.5 HIP SURGERY: 2 - 3 B) Primary and secondary prevention of venous THROMBOSIS: 2 - 3 C) Active venous thrombosis, pulmonary embolism and prevention of recurrent venous thrombosis: 2 - 3 D) Prevention of arterial thromboembolism including patients with mechanical heart valves: 3 - 4.5 INR Therapeutic Rang e A) Pre- and Peroperative OAT started two weeks before surgery. NOT HIP SURGERY: 1.5 - 2.5 HIP SURGERY: 2 - 3B) Primary and secondary prevention of venous THROMBOSIS: 2 - 3C) Active venous thrombosis, pulmonary embolismand prevention of recurrent venous thrombosis: 2 - 3D) Prevention of arterial thromboembolismincluding patients with mechanical heart valves: 3 - 4.5 Platelets Auto (Bld) [#/Vol] Ordered By: Jose Lan on 01-21-2022 Platelets (Bld) [#/Vol] 278 10*3/uL 150-450 [facility] RBC Auto (Bld) [#/Vol]Ordere d By: Jose Lan on 01-21-2022 RBC (Bld) [#/Vol] 4.62 10*6/uL 3.60-5.00 [facility] Amphetamine Screen Ql (U)Ord ered By: Jose Lan on 01-20-2022 Amphetamines Ql (U) Negative Negative [facility] Automated erythrocytes count in urine sediment (number/area)Ordered By: Jose Lan on 01-20-2022 RBC Auto (Urine sed) [#/Area] 3-4 [HPF] 0-4 [facility] Automated leukocytes count i n urine sediment (number/area)Ordered By: Jose Lan on 01-20-2022 WBC Auto (Urine sed) [#/Area] 5-9 [HPF] 0-4 [facility] Barbiturates [Presence] in U rineOrdered By: Jose Lan on 01-20-2022 Barbiturates Ql (U) Negative Negative [facility] Benzodiazepines [Presence] i n UrineOrdered By: Jose Lan on 01-20-2022 Benzodiazepines Ql (U) Positive Negative [facility] Bilirubin Test strip Ql (U)O rdered By: Jsoe Lan on 01-20-2022 Bilirubin Ql (U) Negative Negative [facility] CARDIAC LUPE 3-6on 2 CK [Catalytic activity/Vol] 68 U/L Normal 26-192 [facility] Comment on above: Performed By: #### C MREP #### [facility] [address] [place] [address] Dr. Norma Soto CK.MB [Mass/Vol] 1.18 ng/mL Normal <=3.60 The [facility] Comment on above: Performed By: #### C MREP #### [facility] [address] [address] [address] Norma Soto HSTROP 125.5 pg/mL Critically high 4.0-51.3 The [facility] Comment on above: Result Comment: CUT- OFF POINTS HAVE BEEN ESTABLISHED BASED ON THE FOURTH UNIVERSAL DEFINITIONS OF MYOCARDIAL INFARCTION. THE UPPER REFERENCE LIMIT (URL) OF TROPONIN, DEFINED THE 99TH PERCENTILE OF cTnI DISTRIBUTION IN A REFERENCE POPULATION, HAS BEEN CONFIRMED THE DECISION THRESHOLD FOR CA DIAGNOSIS. Performed By: #### C MREP #### [facility] [address] [address] [address] Norma Soto COVID-19 Positive/NegativeOr dered By: Jose Lan on 01-20-2022 SARS-CoV-2 (COVID-19) N gene HARJINDER+probe Ql (Resp) Negative Negative [facility] Comment on above: Testing for SARS-CoV -2 by RT-PCR This test was developed and its performance characteristics determined by [employer] ([place]) and validated at the [facility]. This test has not been FDA cleared or approved. This test has been authorized by FDA under an Emergency Use Authorization (EUA). This test has been validated in accordance with the FDA's Guidance Document (Policy for Diagnostics Testing in Laboratories Certified to Perform High Complexity Testing under CLIA prior to Emergency Use Authorization for Coronavirus Disease-2019 during the Public Health Emergency) issued on September 03, 2019. This test is only authorized for the duration of time the declaration that circumstances exist justifying the authorization of the emergency use of in vitro diagnostic tests for detection of SARS-CoV-2 virus and/or diagnosis of COVID-19 infection under section 564(b)(1) of the Act, 21 U.S.C. 360bbb-3(b)(1), unless the authorization is terminated or revoked sooner. Testing for SARS-CoV -2 by RT-PCRThis test was developed and its performance characteristics determined by [employer] (BD) and validated at the [facility]. This test has not been FDA cleared or approved. This test has been authorized by FDA under an Emergency Use Authorization (EUA). This test has been validated in accordance with the FDA's Guidance Document (Policy for Diagnostics Testing in Laboratories Certified to Perform High Complexity Testing under CLIA prior to Emergency Use Authorization for Coronavirus Disease-2019 during the Public Health Emergency) issued on September 03, 2019. This test is only authorized for the duration of time the declaration that circumstances exist justifying the authorization of the emergency use of in vitro diagnostic tests for detection of SARS-CoV-2 virus and/or diagnosis of COVID-19 infection under section 564(b)(1) of the Act, 21 U.S.C. 360bbb-3(b)(1), unless the authorization is terminated or revoked sooner. COVID-19 SOFIAOrdered By: Kanwal Lan on 01-20-2022 SARS-CoV+SARS-CoV-2 (COVID-19) Ag IA.rapid Ql (Resp) Negative Negative [facility] Comment on above: This is a duplicate Shivani SARS Antigen (KIERSTEN) result to be used for statistical tracking purpose only. Cannabinoids [Presence] in U rine by Screen methodOrdered By: Jose Lan on 01-20-2022 Cannabinoids Screen Ql (U) Positive Negative [facility] Comment on above: These are unconfirme d results and should not be used for legal purposes. Drug Cut-Off Concentration: AMPH 1000 ng/mL LAMAR 200 ng/mL DEVIN 200 ng/mL COCM 300 ng/mL OP 300 ng/mL PCP 25 ng/mL THC 20 ng/mL These are unconfirme d results and should not be used for legal purposes. Drug Cut-Off Concentration: AMPH 1000 ng/mL LAMAR 200 ng/mL DEVIN 200 ng/mL COCM 300 ng/mL OP 300 ng/mL PCP 25 ng/mL THC 20 ng/mL Cholesterol [Mass/volume] in Serum or PlasmaOrdered By: Jose Lan on 01-20-2022 Cholesterol [Mass/Vol] 196 mg/dL 140-200 [facility] Comment on above: Chol less than 200 m g/dl low risk Chol 201-239 mg/dl borderline risk Chol 240 mg/dl and greater high risk Chol less than 200 m g/dl low riskChol 201-239 mg/dl borderline riskChol 240 mg/dl and greater high risk Cholesterol in LDL Calc [Mas s/Vol]Ordered By: Jose Lan on 01-20-2022 Cholesterol in LDL [Mass/Vol] 111 mg/dL 0-100 [facility] Comment on above: LDL ATP III CLASSIFI CATION LDL less than 100 mg/dL Optimal LDL 100-129 mg/dL Near or above optimal LDL 130-159 mg/dL Borderline high LDL 160-189 mg/dL High LDL greater than 189 mg/dL Very high LDL ATP III CLASSIFI CATIONLDL less than 100 mg/dL OptimalLDL 100-129 mg/dL Near or above optimalLDL 130-159 mg/dL Borderline highLDL 160-189 mg/dL HighLDL greater than 189 mg/dL Very high Cholesterol in VLDL Calc [Ma ss/Vol]Ordered By: Jose Lan on 01-20-2022 Cholesterol in VLDL [Mass/Vol] 50 mg/dL [facility] Color Auto (U)Ordered By: Kanwal Lan on 01-20-2022 Color (U) Yellow Yellow [facility] Glucose mean value [Mass/vol ume] in Blood Estimated from glycated hemoglobinOrdered By: Jose Lan on 01-20-2022 Average glucose Estimated from glycated hemoglobin (Bld) [Mass/Vol] 163 mg/dL [facility] Hemoglobin A1c percentageOrd ered By: Jose Lan on 01-20-2022 HbA1c (Bld) [Mass fraction] 7.3 % 4.3-5.6 [facility] Comment on above: Increased risk for d iabetes: 5.7 - 6.4 diabetes: >6.4 glycemic control for adults with diabetes: <7.0 Increased risk for d iabetes: 5.7 - 6.4diabetes: >6.4glycemic control for adults with diabetes: <7.0 Ketones Auto test strip (U) [Mass/Vol]Ordered By: Jose Lan on 01-20-2022 Ketones (U) [Mass/Vol] Negative Negative [facility] - Chemistry and C hemistry - challengeOrdered By: Jose Lan on 01-20-2022 Magnesium [Mass/Vol] 1.7 mg/dL 1.6-2.6 [facility] - Drug toxicology Ordered By: Jose Lan on 01-20-2022 Opiates Ql (U) Negative Negative [facility] Laboratory - Microbiology an d Antimicrobial susceptibilityOrdered By: Jose Lan on 01-20-2022 SARS-CoV-2 (COVID-19) RNA HARJINDER+probe Ql (Unsp spec) N/A [facility] Laboratory - UrinalysisOrder ed By: Jose Lan on 01-20-2022 Hyaline casts LM Ql (Urine sed) 0-8 [LPF] 0-8 [facility] Nitrite Test strip Ql (U)Ord ered By: Jose Lan on 01-20-2022 Nitrite Ql (U) Negative Negative [facility] No Panel InformationOrdered By: Jose Lan on 01-20-2022 SARS Antigen (LFIA) [facility] Phencyclidine Screen Ql (U)O rdered By: Jose Lan on 01-20-2022 Phencyclidine Ql (U) Negative Negative [facility] Protein Auto test strip (U) [Mass/Vol]Ordered By: Jose Lan on 01-20-2022 Protein (U) [Mass/Vol] Negative Negative [facility] Serum or plasma high density lipoprotein (HDL) cholesterol measurementOrdered By: Jose Lan on 01-20-2022 Cholesterol in HDL [Mass/Vol] 35 mg/dL 35-85 [facility] Comment on above: HDL CHOL ATP-III CLA SSIFICATION Cardiovascular Risk HDL > or equal to 60 mg/dL LOW HDL < 40 mg/dL HIGH HDL CHOL ATP-III CLA SSIFICATION Cardiovascular RiskHDL > or equal to 60 mg/dL LOWHDL < 40 mg/dL HIGH Serum or plasma total choles terol/high density lipoprotein (HDL) cholesterol mass ratOrdered By: Jose Lan on 01-20-2022 Cholesterol.total/Chol esterol in HDL [Mass ratio] 5.6 {ratio} <5.0 [facility] Specific gravity Auto test s trip (U) [Rel density]Ordered By: Jose Lan on 01-20-2022 Specific gravity (U) [Rel density] 1.023 1.001-1.03 0 [facility] Squamous epithelial cells de tection in urine sediment by light microscopyOrdered By: Jose Lan on 01-20-2022 Epithelial cells.squamous LM Ql (Urine sed) 10-19 [HPF] 0-2 [facility] Triglyceride [Mass/volume] i n Serum or PlasmaOrdered By: Jose Lan on 01-20-2022 Triglyceride [Mass/Vol] 252 mg/dL 35-149 [facility] Comment on above: TRIG ATP III CLASSIF ICATION TRIG less than 150 mg/dL Normal TRIG 150-199 mg/dL Borderline high TRIG 200-500 mg/dL High TRIG greater than 500 mg/dL Very high Standard traceable to the Center for Disease Conrtrol and Prevention (CDC) test method. TRIG ATP III CLASSIF ICATIONTRIG less than 150 mg/dL NormalTRIG 150-199 mg/dL Borderline highTRIG 200-500 mg/dL High TRIG greater than 500 mg/dL Very highStandard traceable to the Center for Disease Conrtrol and Prevention (CDC) test method. Troponin I.cardiac [Mass/vol ume] in Serum or Plasma by High sensitivity methodOrdered By: Wes Nunes on 01-20-2022 Troponin I.cardiac High sensitivity method [Mass/Vol] 1576 pg/mL 0-15 [facility] Comment on above: Results called at 1405 on 01/20/22 Results called at 1409 on 01/20/22 Results called at 14 05 on 01/20/22 Results calledat 1409 on 01/20/22 Urine bacteria detection by automated methodOrdered By: Jose Lan on 01-20-2022 Bacteria Auto Ql (U) 2+ None Seen [facility] Urine clarity by refractomet ry automatedOrdered By: Jose Lan on 01-20-2022 Clarity Refractometry automated (U) Cloudy Clear [facility] Urine cocaine detectionOrder ed By: Jose Lan on 01-20-2022 Cocaine Ql (U) Negative Negative [facility] Urine glucose measurement by automated test strip (mass/volume)Ordered By: Jose Lan on 01-20-2022 Glucose Auto test strip (U) [Mass/Vol] Normal mg/dL Normal [facility] Urine hemoglobin detection b y automated test stripOrdered By: Jose Lan on 01-20-2022 Hemoglobin Auto test strip Ql (U) Negative Negative [facility] Urine leukocyte esterase det ection by automated test stripOrdered By: Jose Lan on 01-20-2022 Leukocyte esterase Auto test strip Ql (U) Negative Negative [facility] Urobilinogen Auto test strip (U) [Mass/Vol]Ordered By: Jose Lan on 01-20-2022 Urobilinogen (U) [Mass/Vol] Normal mg/dL Normal [facility] XR CHEST 1 Von 01-20-2022 XR CHEST 1 V EXAMINATION: XR CHES T 1 V HISTORY: CHEST PAIN, UNSPECIFIED COMPARISON: 03/06/2021 TECHNIQUE: AP portable erect FINDINGS: LUNGS: No significant pulmonary parenchymal abnormalities. VASCULATURE: No increased pulmonary vasculature. PLEURA: No pneumothorax, effusion, or pleural thickening. CARDIAC: No cardiomegaly or cardiac silhouette abnormality. MEDIASTINUM: No visible mass or adenopathy. BONES: No fracture or visible bone lesion. OTHER: Negative. IMPRESSION: No acute disease. Electronically authenticated by: RAOUL MOTT Date: 2022-01-19 22:52 Normal The [facility] pH Auto test strip (U)Ordere d By: Jose Lan on 01-20-2022 pH (U) 5.5 [pH] 5.0-9.0 [facility] CARDIAC LUPE ADMITon 022 CK [Catalytic activity/Vol] 73 U/L Normal 26-192 [facility] Comment on above: Performed By: #### CINDY Sr MP ####[facility] [address] [id number]. Norma Soto CK.MB [Mass/Vol] ng/mL Normal <=3.60 The [facility] Comment on above: Performed By: #### CINDY Sr MP ####[facility] [address] [id number]. Norma Soto HSTROP 8.1 pg/mL Normal 4.0-51.3 [facility] Comment on above: Result Comment: CUT- OFF POINTS HAVE BEEN ESTABLISHED BASED ON THE FOURTH UNIVERSAL DEFINITIONS OF MYOCARDIAL INFARCTION. THE UPPER REFERENCE LIMIT (URL) OF TROPONIN, DEFINED THE 99TH PERCENTILE OF cTnI DISTRIBUTION IN A REFERENCE POPULATION, HAS BEEN CONFIRMED THE DECISION THRESHOLD FOR CA DIAGNOSIS. Performed By: #### CINDY Sr MP ####[facility] [address] [id number]. Norma Soto THERESE 39 ng/mL Normal 9-82 [facility] Comment on above: Performed By: #### CINDY Sr MP ####[facility] [address] [id number]. Norma Soto CBC AUTO DIFFon 01-19-2022 BASO # 0.1 103/ul Normal 0.0-0.1 [facility] Comment on above: Performed By: #### C BC #### [facility] [address] [address] [address] Norma Soto Basophils/100 WBC (Bld) 0.5 % Normal 0.2-2.0 [facility] Comment on above: Performed By: #### C BC #### [facility] [address] [place] [address] Dr. Norma Soto EO # 0.1 103/ul Normal 0.0-0.7 [facility] Comment on above: Performed By: #### C BC #### [facility] [address] [place] [address] Dr. Norma oSto Eosinophils/100 WBC (Bld) 0.7 % Critically low 0.9-7.0 [facility] Comment on above: Performed By: #### C BC #### [facility] [address] [place] [address] Dr. Norma Soto Erythrocyte distribution width (RBC) [Ratio] 11.7 % Normal 11.0-15.0 [facility] Comment on above: Performed By: #### C BC #### [facility] [address] [place] [address] Dr. Norma Soto Hematocrit (Bld) [Volume fraction] 45.5 % Normal 36.0-48.0 [facility] Comment on above: Performed By: #### C BC #### [facility] [address] [place] [address] Dr. Norma Soto Hemoglobin (Bld) [Mass/Vol] 16.3 g/dL Critically high 12.0-16.0 [facility] Comment on above: Performed By: #### C BC #### [facility] [address] [place] [address] Dr. Norma Soto IG # 0.11 10e3/ul Critically high 0.00-0.03 The [facility] Comment on above: Performed By: #### C BC #### [facility] [address] [place] [address] Dr. Norma Soto IG % 0.6 % Critically high 0.0-0.5 The [facility] Comment on above: Performed By: #### C BC #### [facility] [address] [place] [address] Dr. Norma Soto LYMPH # 2.0 103/ul Normal 1.2-3.8 [facility] Comment on above: Performed By: #### C BC #### [facility] [address] [place] [address] Dr. Norma Soto Lymphocytes/100 WBC (Bld) 11.3 % Critically low 20.5-60.0 [facility] Comment on above: Performed By: #### C BC #### [facility] [address] [place] [address] Dr. Norma Soto MANUAL DIFF REQ NO Normal [facility] Comment on above: Performed By: #### C BC #### [facility] [address] [place] [address] Dr. Norma Soto MCH (RBC) [Entitic mass] 31.3 pg Normal 26.7-34.0 [facility] Comment on above: Performed By: #### C BC #### [facility] [address] [place] [address] Dr. Norma Soto MCHC (RBC) [Mass/Vol] 35.8 g/dL Critically high 29.9-35.2 [facility] Comment on above: Performed By: #### C BC #### [facility] [address] [place] [address] Dr. Norma Soto MCV (RBC) [Entitic vol] 87.3 fL Normal 81.0-99.0 [facility] Comment on above: Performed By: #### C BC #### [facility] [address] [place] [address] Dr. Norma Soto MONO # 0.7 103/ul Normal 0.3-0.8 [facility] Comment on above: Performed By: #### C BC #### [facility] [address] [place] [address] Dr. Norma Soto Monocytes/100 WBC (Bld) 4.1 % Normal 1.7-12.0 [facility] Comment on above: Performed By: #### C BC #### [facility] [address] [place] [address] Dr. Norma Soto NEUT # 14.6 103/ul Critically high 1.4-6.5 The [facility] Comment on above: Performed By: #### C BC #### [facility] [address] [place] [address] Dr. Norma Soto Neutrophils/100 WBC (Bld) 82.8 % Critically high 43.0-75.0 [facility] Comment on above: Performed By: #### C BC #### [facility] [address] [place] [address] Dr. Norma Soto Platelet mean volume (Bld) [Entitic vol] 9.0 fL Critically low 9.5-13.5 [facility] Comment on above: Performed By: #### C BC #### [facility] [address] [place] [address] Dr. Norma Soto PLT 362 103/ul Normal 150-450 [facility] Comment on above: Performed By: #### C BC #### [facility] [address] [place] [address] Dr. Norma Soto RBC 5.21 106/ul Normal 4.20-5.40 [facility] Comment on above: Performed By: #### C BC #### [facility] [address] [place] [address] Dr. Norma Soto WBC 17.6 103/ul Critically high 4.0-11.0 The [facility] Comment on above: Performed By: #### C BC #### [facility] [address] [place] [address] Dr. Norma Soto D-DIMERon 01-19-2022 D-DIMER 0.45 mg/L FEU Normal <=0.59 [facility] Comment on above: Performed By: #### D DIM #### [facility] [address] [place] [address] Dr. Norma Soto D-DIMER COMMENTS SEE BELOW Normal [facility] Comment on above: Result Comment: Incr eases in D-Dimer concentration observed with thromboembolic events can be variable due to localization, size, and age of the thrombus. Therefore, a thromboembolic event cannot be diagnosed with certainty on the basis of the reference range. D-Dimers may also be elevated for a variety of disorders including: advanced age, , coronary disease, cancer, liver disease, infection, inflammation, hematoma, DIC, trauma, post-surgery, diabetes, thrombolytic or anticoagulant therapy, stress, and generalized hospitalization. Performed By: #### D DIM #### [facility] [address] [address] [address] Norma Soto PROF CHEM 8 (BAS METB)on Anion gap [Moles/Vol] 18.2 mmol/L Normal [facility] Comment on above: Performed By: #### B CINDY MOREIRA ####[facility] [address] [address]Dr. Norma Soto Calcium [Mass/Vol] 9.5 mg/dL Normal 8.5-10.1 [facility] Comment on above: Performed By: #### B CINDY MOREIRA ####[facility] [address] [address]Dr. Norma Soto Chloride [Moles/Vol] 99 mmol/L Normal 98-107 [facility] Comment on above: Performed By: #### B CINDY MOREIRA ####[facility] [address] [address]Dr. Norma Soto CO2 [Moles/Vol] 23.5 mmol/L Normal 21.0-32.0 [facility] Comment on above: Performed By: #### CINDY Sr MP ####[facility] [address] [address]Dr. Norma Soto Creatinine [Mass/Vol] 0.91 mg/dL Normal 0.55-1.02 [facility] Comment on above: Performed By: #### B CINDY MOREIRA ####[facility] [address] [address]Dr. Norma Soto EGFR-AF YEMENI >60 Normal >=60 [facility] Comment on above: Performed By: #### B LILLIE, CINDY ####[facility] [address] [address]Dr. Norma Soto EGFR-NON AF YEMENI >60 Normal >=60 [facility] Comment on above: Performed By: #### B LILLIE, CMAKRISTEL ####[facility] [address] [address]Dr. Norma Soto Glucose [Mass/Vol] 216 mg/dL Critically high 74-106 [facility] Comment on above: Performed By: #### B LILLIE, CINDY ####[facility] [address] [address]Dr. Norma Soto Potassium [Moles/Vol] 3.7 mmol/L Normal 3.5-5.1 [facility] Comment on above: Performed By: #### B LILLIE, CINDY ####[facility] [address] [place], [place] [address]Dr. Norma Soto Sodium [Moles/Vol] 137 mmol/L Normal 136-145 [facility] Comment on above: Performed By: #### B LILLIE, CMAKRISTEL ####[facility] [address] [place], [place] [address]Dr. Norma Soto Urea nitrogen [Mass/Vol] 10.0 mg/dL Normal 7.0-18.0 [facility] Comment on above: Performed By: #### B LILLIE, CINDY ####[facility] [address] [place], [place] [address]Dr. Norma Soto Urea nitrogen/Creatinine [Mass ratio] 11.0 mg/mg Normal [facility] Comment on above: Performed By: #### B LILLIE, CMAKRISTEL ####[facility] [address] [place], [place] [address]Dr. Norma Soto PROTIMEon 01-19-2022 INR Coag (PPP) [Relative time] 1.01 {INR} Normal [facility] Comment on above: Performed By: #### P T, PTT ####[facility] [address] [place], [place] [address]Dr. Norma Soto INR GUIDELINES SEE BELOW Normal [facility] Comment on above: Result Comment: RAQUEL RED INR: 2.0 - 3.0 CONDITIONS NOT LISTED BELOW 2.5 - 3.5 FOR PROSTHETIC HEART VALVE REPLACEMENT 2.5 - 3.5 RECURRENT THROMBOSIS Performed By: #### P T, PTT ####[facility] [address] [place], [place] [address]Dr. Norma Soto PT Coag (PPP) [Time] 10.9 s Normal 9.0-11.6 [facility] Comment on above: Performed By: #### P T, PTT ####[facility] [address] [place], [place] [address]Dr. Norma Soto PTTon 01-19-2022 aPTT Coag (Bld) [Time] 27.3 s Normal 22.3-36.2 [facility] Comment on above: Performed By: #### P T, PTT ####[facility] [address] [place], [place] [address]Dr. Norma Soto A1C HEMOGLOBINon 07-13-2021 HbA1c (Bld) [Mass fraction] 8.0 % [employer] Other HbA1c (Bld) [Mass fraction]o n 07-13-2021 A1C HEMOGLOBIN [facility] [employer] Other CBC AUTO DIFFon 07-11-2021 BASO # 0.1 103/ul Normal 0.0-0.1 [facility] Comment on above: Performed By: #### C BC ####[facility] [address] [place], [place] [address]Dr. Celyzeenat Soto Basophils/100 WBC (Bld) 0.6 % Normal 0.2-2.0 [facility] Comment on above: Performed By: #### C BC ####[facility] Zmolmgqeca[address] [place], [place] [address]Dr. Norma Charles EO # 0.2 103/ul Normal 0.0-0.7 [facility] Comment on above: Performed By: #### C BC ####[facility] Msidtcvnzz[address] [place], [place] [address]Dr. Norma Charles Eosinophils/100 WBC (Bld) 2.0 % Normal 0.9-7.0 [facility] Comment on above: Performed By: #### C BC ####[facility] [address] [place] [address]Dr. Norma Soto Erythrocyte distribution width (RBC) [Ratio] 12.2 % Normal 11.0-15.0 [facility] Comment on above: Performed By: #### C BC ####[facility] [address] [place] [address]Dr. Norma Soto Hematocrit (Bld) [Volume fraction] 43.2 % Normal 36.0-48.0 [facility] Comment on above: Performed By: #### C BC ####[facility] Neomhhrytm[address] [place], [place] [address]Dr. Norma Soto Hemoglobin (Bld) [Mass/Vol] 14.4 g/dL Normal 12.0-16.0 [facility] Comment on above: Performed By: #### C BC ####[facility] Njpwkcugj[address] [place], [place] [address]Dr. Norma Soto IG # 0.03 10e3/ul Normal 0.00-0.03 [facility] Comment on above: Performed By: #### C BC ####[facility] V[address] [place], [place] [address]Dr. Norma Soto IG % 0.4 % Normal 0.0-0.5 [facility] Comment on above: Performed By: #### C BC ####[facility] Ahowuj[address]wc[address] [place], [place] [address]Dr. Norma Soto LYMPH # 2.4 103/ul Normal 1.2-3.8 [facility] Comment on above: Performed By: #### C BC ####[facility] Qviowub[address] [place], [place] [address]Dr. Norma Soto Lymphocytes/100 WBC (Bld) 28.7 % Normal 20.5-60.0 [facility] Comment on above: Performed By: #### C BC ####[facility] Ybgpgisaof[address] [place], [place] [address]Dr. Norma Soto MANUAL DIFF REQ NO Normal The [facility] Comment on above: Performed By: #### C BC ####[facility] Arymfyizzy[address] [place], [place] [address]Dr. Norma Soto MCH (RBC) [Entitic mass] 31.3 pg Normal 26.7-34.0 [facility] Comment on above: Performed By: #### C BC ####[facility] [address] [place] [address]Dr. Norma Soto MCHC (RBC) [Mass/Vol] 33.3 g/dL Normal 29.9-35.2 [facility] Comment on above: Performed By: #### C BC ####[facility] [address] [place] [address]Dr. Norma Soto MCV (RBC) [Entitic vol] 93.9 fL Normal 81.0-99.0 [facility] Comment on above: Performed By: #### C BC ####[facility] [address] [place] [address]Dr. Norma Charles MONO # 0.5 103/ul Normal 0.3-0.8 [facility] Comment on above: Performed By: #### C BC ####[facility] [address] [place] [address]Dr. Norma Charles Monocytes/100 WBC (Bld) 6.0 % Normal 1.7-12.0 [facility] Comment on above: Performed By: #### C BC ####[facility] Jrqgiboiih[address] [place], [place] [address]Dr. Norma Soto NEUT # 5.2 103/ul Normal 1.4-6.5 [facility] Comment on above: Performed By: #### C BC ####[facility] Ygnawacwaf[address] [place], [place] [address]Dr. Norma Charles Neutrophils/100 WBC (Bld) 62.3 % Normal 43.0-75.0 [facility] Comment on above: Performed By: #### C BC ####[facility] [address] [place] [address]Dr. Norma Charles Platelet mean volume (Bld) [Entitic vol] 9.5 fL Normal 9.5-13.5 [facility] Comment on above: Performed By: #### C BC ####[facility] [address] [place], [place] [address]Nf. Norma Soto PLT 281 103/ul Normal 150-450 [facility] Comment on above: Performed By: #### C BC ####[facility] [address] [place], [place] [address]Wn. Norma Soto RBC 4.60 106/ul Normal 4.20-5.40 [facility] Comment on above: Performed By: #### C BC ####[facility] [address] [place], [place] [address]Tr. Norma Soto WBC 8.3 103/ul Normal 4.0-11.0 [facility] Comment on above: Performed By: #### C BC ####[facility] [address] [place], [place] [address]Bo. Norm[address] Soto CT ABD/PELV W CONon 07-11-19 CT ABD/PELV W CON CT ABD/PELV W CON: 07/11/2021 12:19 AM EST CLINICAL HISTORY: 35 years old Female with GENERALIZED ABDOMINAL PAIN. TECHNIQUE: Axial CT images through the abdomen and pelvis are obtained after the intravenous administration of contrast. Coronal and sagittal reformations are also obtained. Dose reduction techniques were achieved by using automated exposure control and/or adjustment of mA and/or kV according to patient size and/or use of iterative reconstruction technique. COMPARISON: None available. FINDINGS: The lung bases are clear with no dependent infiltrate or effusion. The liver is diffusely hypoattenuating compatible with hepatic steatosis without focal abnormality. The hepatic and portal veins appear normally opacified. The liver is enlarged with greatest longitudinal dimension of 21.4 cm. The gallbladder, spleen, pancreas and bilateral adrenal glands are unremarkable. The bilateral kidneys demonstrate normal enhancement without hydronephrosis. The bilateral ureters demonstrate no gross abnormality or obstruction. The stomach and small bowel are unremarkable. The appendix is . The colon is unremarkable. The bladder appears unremarkable. There is no evidence of aortic aneurysm present. No enlarged lymph nodes are seen. No free air or free fluid is seen. Tubal ligation clips are present. The uterus and adnexa are otherwise unremarkable. The osseous structures appear unremarkable. IMPRESSION: 1. Hepatomegaly and hepatic steatosis. 2. No acute intra-abdominal inflammatory process identified. Electronically authenticated by: KURTIS CHAU Date: 2021-07-11 02:11 Normal [facility] LACTATE/LACTIC ACIDon 2021 Lactate [Moles/Vol] 1.0 mmol/L Normal 0.7-2.0 [facility] Comment on above: Performed By: #### L ACT #### [facility] [address] [place] [address] Dr. Norma Soto LIPASEon 07-11-2021 Lipase [Catalytic activity/Vol] 42.0 U/L Normal 23.0-300.0 [facility] Comment on above: Performed By: #### L IPA, LIVER, BMP #### [facility] [address] [place] [address] Dr. Norma Soto LIVER PROFILEon 07-11-2021 Albumin [Mass/Vol] 3.2 g/dL Critically low 3.5-5.0 [facility] Comment on above: Performed By: #### L IPA, LIVER, BMP #### [facility] [address] [place] [address] Dr. Norma Soto Albumin/Globulin [Mass ratio] 0.9 {ratio} Normal [facility] Comment on above: Performed By: #### L IPA, LIVER, BMP #### [facility] [address] [place] [address] Dr. Norma Soto ALP [Catalytic activity/Vol] 59 U/L Normal 38-126 [facility] Comment on above: Performed By: #### L IPA, LIVER, BMP #### [facility] [address] [place] [address] Dr. Norma Soto ALT [Catalytic activity/Vol] 22 U/L Normal 9-52 [facility] Comment on above: Performed By: #### L IPA, LIVER, BMP #### [facility] [address] [place] [address] Dr. Norma Soot AST [Catalytic activity/Vol] 16 U/L Normal 14-36 [facility] Comment on above: Performed By: #### L IPA, LIVER, BMP #### [facility] [address] [place] [address] Dr. Norma Soto BILI, CONJUGATED 0.0 mg/dL Normal 0.0-0.3 The [facility] Comment on above: Performed By: #### L IPA, LIVER, BMP #### [facility] [address] [place] [address] Dr. Norma Soto Bilirubin [Mass/Vol] 0.2 mg/dL Normal 0.2-1.3 [facility] Comment on above: Performed By: #### L IPA, LIVER, BMP #### [facility] [address] [place] [address] Dr. Norma Soto Globulin (S) [Mass/Vol] 3.5 g/dL Normal [facility] Comment on above: Performed By: #### L IPA, LIVER, BMP #### [facility] [address] [place] [address] Dr. Norma Soto Protein [Mass/Vol] 6.7 g/dL Normal 6.1-8.2 The [facility] Comment on above: Performed By: #### L IPA, LIVER, BMP #### [facility] [address] [place] [address] Dr. Norma Soto PROF CHEM 8 (BAS METB)on Anion gap [Moles/Vol] 14.2 mmol/L Normal [facility] Comment on above: Performed By: #### L IPA, LIVER, BMP #### [facility] [address] [place] [address] Dr. Norma Soto Calcium [Mass/Vol] 8.7 mg/dL Normal 8.4-10.2 [facility] Comment on above: Performed By: #### L IPA, LIVER, BMP #### [facility] [address] [place] [address] Dr. Norma Soto Chloride [Moles/Vol] 102 mmol/L Normal 98-107 [facility] Comment on above: Performed By: #### L IPA, LIVER, BMP #### [facility] [address] [place] [address] Dr. Norma Soto CO2 [Moles/Vol] 23.7 mmol/L Normal 22.0-30.0 [facility] Comment on above: Performed By: #### L IPA, LIVER, BMP #### [facility] [address] [address] [address] Norma Soto Creatinine [Mass/Vol] 0.51 mg/dL Critically low 0.52-1.04 [facility] Comment on above: Performed By: #### L IPA, LIVER, BMP #### [facility] [address] [address] [address] Norma Soto EGFR-AF YEMENI >60 Normal >=60 [facility] Comment on above: Performed By: #### L IPA, LIVER, BMP #### [facility] [address] [address] [address] Norma Soto EGFR-NON AF YEMENI >60 Normal >=60 [facility] Comment on above: Performed By: #### L IPA, LIVER, BMP #### [facility] [address] [address] [address] Norma Soto Glucose [Mass/Vol] 210 mg/dL Critically high 74-106 T [facility] Comment on above: Performed By: #### L IPA, LIVER, BMP #### [facility] [address] [address] [address] Norma Soto Potassium [Moles/Vol] 3.9 mmol/L Normal 3.4-5.0 [facility] Comment on above: Performed By: #### L IPA, LIVER, BMP #### [facility] [address] [address] [address] Norma Soto Sodium [Moles/Vol] 136 mmol/L Critically low 137-145 Th [facility] Comment on above: Performed By: #### L IPA, LIVER, BMP #### [facility] [address] [address] [address] Norma Soto Urea nitrogen [Mass/Vol] 7.0 mg/dL Normal 7.0-17.0 [facility] Comment on above: Performed By: #### L IPA, LIVER, BMP #### [facility] [address] [address] [address] Norma Soto Urea nitrogen/Creatinine [Mass ratio] 13.7 mg/mg Normal [facility] Comment on above: Performed By: #### L IPA, LIVER, BMP #### [facility] [address] [address] [address] Norma Soto XR RIBS LT PA Elaine 1 XR RIBS LT PA CH EXAMINATION: XR RIBS LT PA CH HISTORY: Pain ; acute left posterior lower rib pain for 2 months, no known injury; productive cough COMPARISON: No relevant comparison available. FINDINGS: LUNGS: No significant pulmonary parenchymal abnormalities. PLEURA: No pneumothorax, effusion, or pleural thickening. MEDIASTINUM: No visible mass or adenopathy. CARDIAC: No cardiomegaly or cardiac silhouette abnormality. RIBS: Normal. No significant arthropathy or acute abnormality. OTHER: Negative. IMPRESSION: 1. No acute cardiopulmonary process. 2. No appreciable rib abnormality or findings to account for patient's symptoms. Electronically authenticated by: CYRUS SOTO Date: 2021-03-06 14:43 Normal The [facility] CT ABDOMEN PELVIS WO CONTRAS Ton 01-24-2021 CT ABDOMEN PELVIS WO CONTRAST EXAMINATION: CT OF THE ABDOMEN AND PELVIS WITHOUT CONTRAST 01/23/2021 3:10 pm TECHNIQUE: CT of the abdomen and pelvis was performed without the administration of intravenous contrast. Multiplanar reformatted images are provided for review. Dose modulation, iterative reconstruction, and/or weight based adjustment of the mA/kV was utilized to reduce the radiation dose to as low as reasonably achievable. COMPARISON: CT scan dated February 23, 2020 HISTORY: ORDERING SYSTEM PROVIDED HISTORY: left flank pain TECHNOLOGIST PROVIDED HISTORY: left flank pain Decision Support Exception - unselect if not a suspected or confirmed emergency medical condition->Emergency Medical Condition (MA) Is the patient ?->No FINDINGS: Lower Chest: 3 mm nodule is again demonstrated within the right lung base, unchanged. Patchy air trapping is present bilaterally, and suggest reactive airway disease, or respiratory bronchiolitis. Organs: The liver, spleen, gallbladder, pancreas, and adrenal glands demonstrate no acute abnormality. No intrarenal calculi or hydronephrosis is present. GI/Bowel: Stomach appears grossly normal. Small bowel is normal without evidence of obstruction. The appendix is normal. Scattered colonic diverticula are present without evidence of diverticulitis. Pelvis: Urinary bladder appears normal. Uterus is normal in size. Patient is status post prior tubal ligation. Peritoneum/Retroperitoneu m: No free fluid or free air is present within the abdomen or pelvis. No aneurysm formation is noted. No pathological adenopathy is present. Bones/Soft Tissues: No acute osseous abnormality is present. IMPRESSION: 1. No acute findings within the abdomen or pelvis 2. No intrarenal calculi or evidence of hydronephrosis Interpreted by: Rasta Albright DO Signed by: Rasta Albright DO 01/23/21 Final result Normal [facility] UA w/Reflex Cultureon 2020 Bilirubin, SemiQt,Ur Negative Normal NEG [facility] Comment on above: Performed By: #### U MICAO, UA #### [facility] [address] [place] [address] Tubing Tester: Alfredo Best MD Blood, Urine Negative Normal [facility] Comment on above: Performed By: #### U NADEGEO, UA #### [facility] [address] [place], [facility] Tubing Tester: Alfredo Best MD Clarity (U) CLEAR Normal CLEAR [facility] Comment on above: Performed By: #### U NADEGEO, UA #### [facility] [address] [place] [address] Tubing Tester: Alfredo Best MD Color (U) YELLOW Normal YEL [facility] Comment on above: Performed By: #### U MICAO, UA #### [facility] [address] [place], [facility]83 Tubing Tester: Alfredo Best MD Glucose Ql (U) TRACE Abnormal NEG [facility] Comment on above: Performed By: #### U MICAO, UA #### [facility] [address] [place] [address] Tubing Tester: Alfredo Best MD Ketones Ql (U) TRACE Abnormal NEG [facility] Comment on above: Performed By: #### U MICAO, UA #### [facility] [address] [place], [place] [address] Tubing Tester: Alfredo Best MD Leukocyte esterase Test strip Ql (U) TRACE Abnormal NEG [facility] Comment on above: Performed By: #### U MICAO, UA #### [facility] [address] [place], [place] [address] Tubing Tester: Alfredo Best MD Nitrite,Ur Negative Normal NEG [facility] Comment on above: Performed By: #### U MICAO, UA #### [facility] [address] [place], [place] [id number] Tubing Tester: Alfredo Best MD PH,Ur 6.0 Normal 5.0-9.0 [facility] Comment on above: Performed By: #### U MICAO, UA #### [facility] [address] [place], [place] [address] Tubing Tester: Alfredo Best MD Protein Ql (U) Negative Normal NEG [facility] Comment on above: Performed By: #### U MICAO, UA #### [facility] [address] [place], [place] [address] Tubing Tester: Alfredo Best MD Spec. [place],Ur >1.030 High 1.010-1.02 0 [facility] Comment on above: Performed By: #### U MICAO, UA #### [facility] [address] [place], [place] [address] Tubing Tester: Alfredo Best MD Urobilinogen,Ur Normal Normal NORM [facility] Comment on above: Performed By: #### U MICAO, UA #### [facility] [address] [place] [address] Tubing Tester: Alfredo Best MD Comment NOT REPORTED Normal [facility] Comment on above: Performed By: #### U MICAO, UA #### [facility] [address] [place], [place] [address]83 Tubing Tester: Alfredo Best MD Urinalysis,Microon 1 ----- Normal [facility] Comment on above: Performed By: #### C DP, CMPX #### [facility] [address] [place], [place] [address] Tubing Tester: Alfredo Best MD Epithelial cells LM Ql (Urine sed) 20 TO 50 Normal 0-25 [facility] Comment on above: Performed By: #### C DP, CMPX #### [facility] [address] [place], [place] [address] Tubing Tester: Alfredo Best MD Urine RBC's None Normal 0-2 [facility] Comment on above: Performed By: #### C DP, CMPX #### [facility] [address] [place], [place] [address] Tubing Tester: Alfredo Best MD Urine WBC's 0 TO 2 Normal 0-5 [facility] Comment on above: Performed By: #### C DP, CMPX #### [facility] [address] [place], [place] 6733483 Tubing Tester: Alfredo Best MD Amorphous sediment LM Ql (Urine sed) NOT REPORTED Normal [facility] Comment on above: Performed By: #### C DP, CMPX #### [facility] [address] [place], [place] [address] Tubing Tester: Alfredo Best MD Bacteria NOT REPORTED Normal [facility] Comment on above: Performed By: #### C DP, CMPX #### [facility] [address] [place], [place] 3150383 Tubing Tester: Alfredo Best MD Casts NOT REPORTED Normal [facility] Comment on above: Performed By: #### C DP, CMPX #### [facility] [address] [place], [place] [address] Tubing Tester: Alfredo Best MD Crystals LM Nom (Urine sed) NOT REPORTED Normal NONE [facility] Comment on above: Performed By: #### C DP, CMPX #### [facility] [address] [place], [place] 2423383 Tubing Tester: Alfredo Best MD Epithelial, Renal NOT REPORTED Normal 0 [facility] Comment on above: Performed By: #### C DP, CMPX #### [facility] [address] [place], [place] [address] Tubing Tester: Alfredo Best MD Mucus Strands NOT REPORTED Normal NONE [facility] Comment on above: Performed By: #### C DP, CMPX #### [facility] [address] [place], [place] [address] Tubing Tester: Alfredo Best MD Other Observations NOT REPORTED Normal NREQ [facility] Comment on above: Performed By: #### C DP, CMPX #### [facility] [address] [place], [place] [address]484[address] Tubing Tester: Alfredo Best MD Trichomonas NOT REPORTED Normal NONE [facility] Comment on above: Performed By: #### C DP, CMPX #### [facility] [address] [place], [place] [address] Tubing Tester: Alfredo Best MD Yeast NOT REPORTED Normal NONE [facility] Comment on above: Performed By: #### C DP, CMPX #### [facility] [address] [place], [place] [address] Tubing Tester: Alfredo Best MD CBC Auto DifferentialOrdered By: Neelima Dutton on 01-23-2021 [facility] Eos # 0.33 [facility] Work Phone: Absolute Immature Granulocyte 0.08 [facility] Work Phone: Absolute Lymph # 3.17 [facility] Work Phone: Absolute [place] # 0.50 [facility] Work Phone: Basophils (Bld) [#/Vol] 0.09 10*3/uL [facility] [employer] Phone: Basophils/100 WBC (Bld) 1 % 0 - 2 % [facility] [employer] Phone: Differential Type NOT REPORTED [facility] [employer] Phone: Eosinophils/100 WBC (Bld) 2 % 1 - 4 % [facility] [employer] Phone: Hematocrit (Bld) [Volume fraction] 40.4 % 36.3 - 47.1 % [facility] [employer] Phone: Hemoglobin.gastrointes tinal spec 1 Ql (Stl) 13.6 g/dL 11.9 - 15.1 g/dL [facility] [employer] Phone: Immature granulocytes/100 WBC (Bld) 1 % High 0 [facility] [employer] Phone: Interpretation and review of laboratory results Abnormal [facility] [employer] Phone: Lymphocytes/100 WBC (Bld) 22 % Low 24 - 43 % [facility] [employer] Phone: MCH (RBC) [Entitic mass] 31.2 pg 25.2 - 33.5 pg [facility] [employer] Phone: MCHC (RBC) [Mass/Vol] 33.7 g/dL 28.4 - 34.8 g/dL [facility] [employer] Phone: MCV (RBC) [Entitic vol] 92.7 fL 82.6 - 102.9 fL [facility] [employer] Phone: Monocytes/100 WBC (Bld) 4 % 3 - 12 % [facility] [employer] Phone: NRBC Automated 0.0 0.0 per 100 WBC [facility] [employer] Phone: Platelet distribution width (Bld) [Ratio] 12.3 % 11.8 - 14.4 % [facility] [employer] Phone: Platelet Estimate NOT REPORTED [facility] [employer] Phone: Platelet mean volume (Bld) [Entitic vol] 9.4 fL 8.1 - 13.5 fL [facility] [employer] Phone: Platelets (Bld) [#/Vol] 329 10*3/uL [facility] [employer] Phone: RBC (Bld) [#/Vol] 4.36 10*6/uL 3.95 - 5.11 m/uL [employer] Work Phone: RBC (Bld) [#/Vol] NOT REPORTED [facility] [employer] Phone: Segmented neutrophils/100 WBC (Bld) 70 % High 36 - 65 % [employer] Work Phone: Segs Absolute 10.03 High [employer] Work Phone: WBC (Bld) [#/Vol] 14.2 10*3/uL High [employer] Work Phone: WBC (Bld) [#/Vol] NOT REPORTED [facility] [employer] Phone: [facility] [employer] Phone: CBC with Diffon 01-23-2021 Abs. Basophil 0.09 k/uL Normal 0.00-0.20 [facility] Comment on above: Performed By: #### CHICHI RECIO #### [facility] [address] [place] [address] Tubing Tester: Alfredo Best MD Abs.Imm.Granulocyte 0.08 k/uL Normal 0.00-0.30 [facility] Comment on above: Performed By: #### CHICHI RECIO #### [facility] [address] [place] [address] Tubing Tester: Alfredo Best MD Abs.Neutrophil (Seg) 10.03 k/uL High 1.50-8.10 [facility] Comment on above: Performed By: #### CHICHI RECIO #### [facility] [address] [place], [place] [address] Tubing Tester: Alfredo Best MD Basophils/100 WBC (Bld) 1 % Normal 0-2 [facility] Comment on above: Performed By: #### U MICAO, UA #### [facility] [address] [place], [place] [address] Tubing Tester: Alfredo Best MD Eosinophils (Bld) [#/Vol] 0.33 10*3/uL Normal 0.00-0.44 [facility] Comment on above: Performed By: #### U NADEGEO, UA #### [facility] [address] [place], [place] 6807483 Tubing Tester: Alfredo Best MD Eosinophils/100 WBC (Bld) 2 % Normal 1-4 [facility] Comment on above: Performed By: #### U NADEGEO, UA #### [facility] [address] [place], [facility]83 Tubing Tester: Alfredo Best MD Erythrocyte distribution width (RBC) [Ratio] 12.3 % Normal 11.8-14.4 [facility] Comment on above: Performed By: #### U MICAO, UA #### [address] [place], [facility]83 Tubing Tester: Alfredo Best MD Hematocrit (Bld) [Volume fraction] 40.4 % Normal 36.3-47.1 [facility] Comment on above: Performed By: #### U MICAO, UA #### [facility] [address] [place], [place] [id number] Tubing Tester: Alfredo Best MD Hemoglobin (Bld) [Mass/Vol] 13.6 g/dL Normal 11.9-15.1 [facility] Comment on above: Performed By: #### U NADEGEO, UA #### [facility] [address] [place] [id number] Tubing Tester: Alfredo Best MD Immature granulocytes/100 WBC (Bld) 1 % High 0 [facility] Comment on above: Performed By: #### U SHADI, UA #### [facility] [address] [place] [facility]83 Tubing Tester: Alfredo Best MD Lymphocytes (Bld) [#/Vol] 3.17 10*3/uL Normal 1.10-3.70 [facility] Comment on above: Performed By: #### U SHADI, UA #### [facility] [address] [place] [address] Tubing Tester: Alfredo Best MD Lymphocytes/100 WBC (Bld) 22 % Low 24-43 [facility] Comment on above: Performed By: #### Erinn HSU, UA #### [facility] [address] [place] [address] Tubing Tester: Alfredo Best MD MCH (RBC) [Entitic mass] 31.2 pg Normal 25.2-33.5 [facility] Comment on above: Performed By: #### Erinn HSU UA #### [address] [place] [facility]83 Tubing Tester: Alfredo Best MD MCHC (RBC) [Mass/Vol] 33.7 g/dL Normal 28.4-34.8 [facility] Comment on above: Performed By: #### U SHADI, UA #### [facility] [address] [place] [facility]83 Tubing Tester: Alfredo Best MD MCV (RBC) [Entitic vol] 92.7 fL Normal 82.6-102.9 [facility] Comment on above: Performed By: #### U SHADI, UA #### [facility] [address] [place], [facility]83 Tubing Tester: Alfredo Best MD Monocytes (Bld) [#/Vol] 0.50 10*3/uL Normal 0.10-1.20 [facility] Comment on above: Performed By: #### U SHADI, UA #### [facility] [address] [place] [address] Tubing Tester: Alfredo Best MD Monocytes/100 WBC (Bld) 4 % Normal 3-12 [facility] Comment on above: Performed By: #### U SHADI, UA #### [facility] [address] [place], [facility]83 Tubing Tester: Alfredo Best MD Neutrophil (Seg) 70 % High 36-65 [facility] Comment on above: Performed By: #### U SHADI UA #### [facility] [address] [place] [address] Tubing Tester: Alfredo Best MD NRBC Automated 0.0 per 100 WBC Normal 0.0 [facility] Comment on above: Performed By: #### U SHADI, UA #### [facility] [address] [place], [facility]83 Tubing Tester: Alfredo Best MD Platelet mean volume (Bld) [Entitic vol] 9.4 fL Normal 8.1-13.5 [facility] Comment on above: Performed By: #### U SHADI UA #### [facility] [address] [place], [facility]83 Tubing Tester: Alfredo Best MD Platelets (Bld) [#/Vol] 329 10*3/uL Normal 138-453 [facility] Comment on above: Performed By: #### U SHADI, UA #### [facility] [address] [place] [address] Tubing Tester: Alfredo Best MD RBC (Bld) [#/Vol] 4.36 10*6/uL Normal 3.95-5.11 [facility] Comment on above: Performed By: #### U SHADI, UA #### [facility] [address] [place] [address] Tubing Tester: Alfredo Best MD WBC (Bld) [#/Vol] 14.2 10*3/uL High 3.5-11.3 [facility] Comment on above: Performed By: #### U MICAO, UA #### [facility] [address] [place] [address] Tubing Tester: Alfredo Best MD Auto Diff Performed NOT REPORTED Normal [facility] Comment on above: Performed By: #### U MICAO, UA #### [facility] [address] [place] [address] Tubing Tester: Alfredo Best MD Platelet Estimate NOT REPORTED Normal [facility] Comment on above: Performed By: #### U MICAO, UA #### [facility] [address] [place], [facility]83 Tubing Tester: Alfredo Best MD RBC morphology finding Nom (Bld) NOT REPORTED Normal [facility] Comment on above: Performed By: #### U MICAO, UA #### [facility] [address] [place] [address] Tubing Tester: Alfredo Best MD WBC Morphology NOT REPORTED Normal [facility] Comment on above: Performed By: #### U MICAO, UA #### [facility] [address] [place], [facility]83 Tubing Tester: Alfredo Best MD CT ABDOMEN PELVIS WO CONTRAS T Additional Contrast? NoneOrdered By: Neelima Dutton on 01-23-2021 1. No acute findings within the abdomen or pelvis 2. No intrarenal calculi or evidence of hydronephrosis [facility] Work Phone: EXAMINATION: CT OF T HE ABDOMEN AND PELVIS WITHOUT CONTRAST 01/23/2021 3:10 pm TECHNIQUE: CT of the abdomen and pelvis was performed without the administration of intravenous contrast. Multiplanar reformatted images are provided for review. Dose modulation, iterative reconstruction, and/or weight based adjustment of the mA/kV was utilized to reduce the radiation dose to as low as reasonably achievable. COMPARISON: CT scan dated February 23, 2020 HISTORY: ORDERING SYSTEM PROVIDED HISTORY: left flank pain TECHNOLOGIST PROVIDED HISTORY: left flank pain Decision Support Exception - unselect if not a suspected or confirmed emergency medical condition->Emergency Medical Condition (MA) Is the patient ?->No FINDINGS: Lower Chest: 3 mm nodule is again demonstrated within the right lung base, unchanged. Patchy air trapping is present bilaterally, and suggest reactive airway disease, or respiratory bronchiolitis. Organs: The liver, spleen, gallbladder, pancreas, and adrenal glands demonstrate no acute abnormality. No intrarenal calculi or hydronephrosis is present. GI/Bowel: Stomach appears grossly normal. Small bowel is normal without evidence of obstruction. The appendix is normal. Scattered colonic diverticula are present without evidence of diverticulitis. Pelvis: Urinary bladder appears normal. Uterus is normal in size. Patient is status post prior tubal ligation. Peritoneum/Retroperitoneu m: No free fluid or free air is present within the abdomen or pelvis. No aneurysm formation is noted. No pathological adenopathy is present. Bones/Soft Tissues: No acute osseous abnormality is present. [employer] Work Phone: Nuno, pn Incoming Radiant Results From [employer] - 01/23/2021 10:07 PM EDT EXAMINATION: CT OF THE ABDOMEN AND PELVIS WITHOUT CONTRAST 01/23/2021 3:10 pm TECHNIQUE: CT of the abdomen and pelvis was performed without the administration of intravenous contrast. Multiplanar reformatted images are provided for review. Dose modulation, iterative reconstruction, and/or weight based adjustment of the mA/kV was utilized to reduce the radiation dose to as low as reasonably achievable. COMPARISON: CT scan dated February 23, 2020 HISTORY: ORDERING SYSTEM PROVIDED HISTORY: left flank pain TECHNOLOGIST PROVIDED HISTORY: left flank pain Decision Support Exception - unselect if not a suspected or confirmed emergency medical condition->Emergency Medical Condition (MA) Is the patient ?->No FINDINGS: Lower Chest: 3 mm nodule is again demonstrated within the right lung base, unchanged. Patchy air trapping is present bilaterally, and suggest reactive airway disease, or respiratory bronchiolitis. Organs: The liver, spleen, gallbladder, pancreas, and adrenal glands demonstrate no acute abnormality. No intrarenal calculi or hydronephrosis is present. GI/Bowel: Stomach appears grossly normal. Small bowel is normal without evidence of obstruction. The appendix is normal. Scattered colonic diverticula are present without evidence of diverticulitis. Pelvis: Urinary bladder appears normal. Uterus is normal in size. Patient is status post prior tubal ligation. Peritoneum/Retroperitoneu m: No free fluid or free air is present within the abdomen or pelvis. No aneurysm formation is noted. No pathological adenopathy is present. Bones/Soft Tissues: No acute osseous abnormality is present. IMPRESSION: 1. No acute findings within the abdomen or pelvis 2. No intrarenal calculi or evidence of hydronephrosis [facility] Work Phone: [facility] Work Phone: Comp Metabolic Pr/rfx MGon 0 - Potassium [Moles/Vol] 3.4 mmol/L Low 3.7-5.3 [facility] Comment on above: Performed By: #### CHICHI RECIO #### [facility] [address] [place] [address] Tubing Tester: Alfredo Best MD (cont.) [facility] Comment on above: Result Comment: Aver age GFR for 30-39 years old: 107 mL/min/1.73sq m Chronic Kidney Disease: <60 mL/min/1.73sq m Kidney failure: <15 mL/min/1.73sq m eGFR calculated using average adult body mass. Additional eGFR calculator available at: http://www.[employer].com/multiple_crcl_2012.htm Performed By: #### CHICHI RECIO #### [facility] [address] [place] [address] Tubing Tester: Alfredo Best MD Albumin [Mass/Vol] 3.9 g/dL Normal 3.5-5.2 [facility] Comment on above: Performed By: #### CHICHI RECIO #### [facility] [address] [place] [id number] Tubing Tester: Alfredo Best MD Albumin/Glob Ratio 1.6 Normal 1.0-2.5 [facility] Comment on above: Performed By: #### U SHADI, UA #### [facility] [address] [place], [place] [id number] Tubing Tester: Alfredo Best MD Alkaline Phos 61 U/L Normal 35-104 [facility] Comment on above: Performed By: #### U NADEGEO, UA #### [facility] [address] [place], [place] [address] Tubing Tester: Alfredo Best MD ALT [Catalytic activity/Vol] 7 U/L Normal 5-33 [facility] Comment on above: Performed By: #### U SHADI UA #### [facility] [address] [place], [place] [id number] Tubing Tester: Alfredo Best MD Anion gap [Moles/Vol] 12 mmol/L Normal 9-17 [facility] Comment on above: Performed By: #### U CHICHI HSU #### [facility] [address] [place], [place] [id number] Tubing Tester: Alfredo Best MD AST [Catalytic activity/Vol] 8 U/L Normal <32 [facility] Comment on above: Performed By: #### U SHADI, UA #### [facility] [address] [place], [place] [id number] Tubing Tester: Alfredo Best MD Bilirubin [Mass/Vol] 0.17 mg/dL Low 0.3-1.2 [facility] Comment on above: Performed By: #### U NADEGEO, UA #### [facility] [address] [place] [address] Tubing Tester: Alfredo Best MD BUN/CRE Ratio 17 Normal 9-20 [facility] Comment on above: Performed By: #### U NADEGEO, UA #### [facility] [address] [place], [place] [id number] Tubing Tester: Alfredo Best MD Calcium [Mass/Vol] 8.9 mg/dL Normal 8.6-10.4 [facility] Comment on above: Performed By: #### U MICAO, UA #### [facility] [address] [place], [place] [id number] Tubing Tester: Alfredo Best MD Chloride [Moles/Vol] 102 mmol/L Normal 98-107 [facility] Comment on above: Performed By: #### U MICAO, UA #### [facility] [address] [place], [place] [address] Tubing Tester: Alfredo Best MD CO2 [Moles/Vol] 22 mmol/L Normal 20-31 [facility] Comment on above: Performed By: #### U MICAO, UA #### [facility] [address] [place], [place] [address] Tubing Tester: Alfredo Best MD Creatinine [Mass/Vol] 0.76 mg/dL Normal 0.50-0.90 [facility] Comment on above: Performed By: #### U MICAO, UA #### [facility] [address] [place], [place] [phone] Tubing Tester: Alfredo Best MD GFR, Amer >60 Normal >60 [facility] Comment on above: Performed By: #### U MICAO, UA #### [facility] [address] [place], [place] [id number] Tubing Tester: Alfredo Best MD GFR,non Amer >60 Normal >60 [facility] Comment on above: Performed By: #### U MICAO, UA #### [facility] [address] [place], [place] [phone] Tubing Tester: Alfredo Best MD Glucose [Mass/Vol] 262 mg/dL High 70-99 [facility] Comment on above: Performed By: #### Erinn HSU UA #### [facility] [address] [place] [address] Tubing Tester: Alfredo Best MD Protein [Mass/Vol] 6.3 g/dL Low 6.4-8.3 [facility] Comment on above: Performed By: #### Erinn HSU UA #### [facility] [address] [place] [address] Tubing Tester: Alfredo Best MD Sodium [Moles/Vol] 136 mmol/L Normal 135-144 [facility] Comment on above: Performed By: #### CHICHI RECIO #### [facility] [address] [place] [address] Tubing Tester: Alfredo Best MD Staging: Normal [facility] Comment on above: Result Comment: Stag e 1: Some kidney damage normal GFR Stage 2: Mild kidney damage GFR 60-89 Stage 3: Moderate kidney damage GFR 30-59 Stage 4: Severe kidney damage GFR 15-29 Stage 5: Severe kidney damage GFR <15 ESRD - chronic treatment by dialysis or transplant Performed By: #### Erinn HSU UA #### [facility] [address] [place] [address] Tubing Tester: Alfredo Best MD Urea nitrogen [Mass/Vol] 13 mg/dL Normal 6-20 [facility] Comment on above: Performed By: #### Erinn HSU UA #### [facility] [address] [place] [address] Tubing Tester: Alfredo Best MD Comprehensive Metabolic Pane l w/ Reflex to MGOrdered By: Neelima Dutton on 01-23-2021 Albumin [Mass/Vol] 3.9 g/dL 3.5 - 5.2 g/dL [facility] Work Phone: Albumin/Globulin [Mass ratio] 1.6 {ratio} [facility] Work Phone: ALP (Bld) [Catalytic activity/Vol] 61 U/L 35 - 104 U/L [facility] [employer] Phone: ALT [Catalytic activity/Vol] 7 U/L 5 - 33 U/L [facility] [employer] Phone: Anion gap [Moles/Vol] 12 mmol/L 9 - 17 mmol/L [facility] [employer] Phone: AST [Catalytic activity/Vol] 8 U/L <32 [facility] [employer] Phone: Bilirubin [Mass/Vol] 0.17 mg/dL Low 0.3 - 1 .2 mg/dL [facility] [employer] Phone: Calcium [Mass/Vol] 8.9 mg/dL 8.6 - 10. 4 mg/dL [facility] [employer] Phone: Chloride [Moles/Vol] 102 mmol/L 98 - 10 7 mmol/L [facility] [employer] Phone: CO2 [Moles/Vol] 22 mmol/L 20 - 31 mmol/L [facility] [employer] Phone: Creatinine [Mass/Vol] 0.76 mg/dL 0.50 - 0.90 mg/dL [facility] [employer] Phone: Free PSA/Total PSA [Mass fraction] 6.3 g/dL Low 6.4 - 8.3 g/dL [facility] [employer] Phone: GFR >60 >60 mL/min [employer] Phone: GFR Non- >60 >60 mL/min [facility] [employer] Phone: Glucose [Mass/Vol] 262 mg/dL High 70 - 99 mg/dL [facility] [employer] Phone: Interpretation and review of laboratory results Abnormal [facility] [employer] Phone: Potassium [Moles/Vol] 3.4 mmol/L Low 3.7 - 5.3 mmol/L [facility] [employer] Phone: Sodium [Moles/Vol] 136 mmol/L 135 - 144 mmol/L [facility] [employer] Phone: Urea nitrogen (BldV) [Mass/Vol] 13 mg/dL 6 - 20 mg/dL [facility] [employer] Phone: Urea nitrogen/Creatinine (Bld) [Mass ratio] 17 [employer] Phone: [facility] [employer] Phone: Laboratory - Chemistry and C hemistry - challengeOrdered By: Neelima Dutton on 01-23-2021 GFR/1.73 sq M.predicted MDRD (S/P/Bld) [Vol rate/Area] [facility] [employer] Phone: Comment on above: Average GFR for 30-3 9 years old: 107 mL/min/1.73sq m Chronic Kidney Disease: <60 mL/min/1.73sq m Kidney failure: <15 mL/min/1.73sq m eGFR calculated using average adult body mass. Additional eGFR calculator available at: http://www.[employer]/multiple_crcl_2012.htm Stage 1: Some kidney damage normal GFR Stage 2: Mild kidney damage GFR 60-89 Stage 3: Moderate kidney damage GFR 30-59 Stage 4: Severe kidney damage GFR 15-29 Stage 5: Severe kidney damage GFR <15 ESRD - chronic treatment by dialysis or transplant Lactate, Sepsison 01-23-2021 Lactic Acid, Sepsis 1.4 mmol/L Normal 0.5-1.9 [facility] Comment on above: Performed By: #### U SHADI, UA #### [facility] [address] [place] [address] Tubing Tester: Alfredo Best MD Lactic Acid,Sep Wbld NOT REPORTED Normal 0.5-1.9 [facility] Comment on above: Performed By: #### U SHADI, UA #### [facility] [address] [place] [address] Tubing Tester: Alfredo Best MD Lactate, SepsisOrdered By: Lata Dutton on 01-23-2021 Lactic Acid, Sepsis 1.4 mmol/L 0.5 - 1. 9 mmol/L [facility] [email or web address] Work Phone: Lactic Acid, Sepsis, Whole Blood NOT REPORTED 0.5 - 1.9 mmol/L [facility] [email or web address] Work Phone: [employer] Work Phone: Lipaseon 01-23-2021 Lipase [Catalytic activity/Vol] 22 U/L Normal 13-60 [facility] Comment on above: Performed By: #### U SHADI, UA #### [facility] [address] [place] [address] Tubing Tester: Alfredo Best MD LipaseOrdered By: Neelima rodríguez on 01-23-2021 Lipase [Catalytic activity/Vol] 22 U/L 13 - 60 U/L [facility] Work Phone: [facility] [email or web address] Work Phone: Magnesiumon 01-23-2021 Magnesium [Mass/Vol] 1.7 mg/dL Normal 1.6-2.6 [facility] Comment on above: Performed By: #### U SHADI, UA #### [facility] [address] [place] [address] Tubing Tester: Alfredo Best MD MagnesiumOrdered By: Neelima Dutton on 01-23-2021 Magnesium [Mass/Vol] 1.7 mg/dL 1.6 - 2 .6 mg/dL [facility] [email or web address] Work Phone: [email or web address] Work Phone: Microscopic UrinalysisOrdere d By: Neelima Dutton on 01-23-2021 - [facility] [email or web address] Work Phone: Amorphous, UA NOT REPORTED None [facility] Work Phone: Bacteria, UA NOT REPORTED None [facility] Work Phone: Casts UA NOT REPORTED /LPF [facility] Work Phone: Crystals, UA NOT REPORTED None /HPF [facility] Work Phone: Epithelial Cells UA 20 TO 50 [facility] Work Phone: Mucus, UA NOT REPORTED None [facility] Work Phone: Other Observations UA NOT REPORTED NOT REQ. [facility] Work Phone: RBC, UA None [facility] Work Phone: Renal Epithelial, UA NOT REPORTED 0 /HPF [facility] Work Phone: Trichomonas, UA NOT REPORTED None [facility] Work Phone: WBC, UA 0 TO 2 [facility] Work Phone: Yeast, UA NOT REPORTED None [facility] Work Phone: [facility] Work Phone: Urinalysis Reflex to Culture Ordered By: Neelima Dutton on 01-23-2021 Bilirubin Urine Negative NEGATIVE [facility] Work Phone: Color, UA YELLOW YELLOW [facility] Work Phone: Glucose, Ur TRACE Abnormal NEGATIVE [facility] Work Phone: Interpretation and review of laboratory results Abnormal [facility] Work Phone: Ketones Ql (U) TRACE Abnormal NEGATIVE [facility] Work Phone: Leukocyte esterase Test strip Ql (U) TRACE Abnormal NEGATIVE [facility] Work Phone: Nitrite, Urine Negative NEGATIVE [facility] Work Phone: pH, UA 6.0 [facility] Work Phone: Protein, UA Negative NEGATIVE [facility] Work Phone: Specific [place], UA >1.030 High [facility] [email or web address] Work Phone: Turbidity UA CLEAR CLEAR [facility] [email or web address] Work Phone: Urinalysis Comments NOT REPORTED [facility] [employer] Phone: Urine Hgb Negative NEGATIVE [facility] [employer] Phone: Urobilinogen, Urine Normal Normal [facility] [employer] Phone: [facility] [employer] Phone: XR ANKLE RIGHT (MIN 3 VIEWS) on 10-06-2020 XR ANKLE RIGHT (MIN 3 VIEWS) EXAMINATION: 2 XRAY VIEWS OF THE RIGHT TIBIA AND FIBULA; THREE XRAY VIEWS OF THE RIGHT ANKLE; THREE XRAY VIEWS OF THE RIGHT FOOT 10/06/2020 5:07 pm COMPARISON: None. HISTORY: ORDERING SYSTEM PROVIDED HISTORY: Bruising and pain after fall. TECHNOLOGIST PROVIDED HISTORY: Bruising and pain after fall. FINDINGS: Tibia fibula: Normal alignment at the knee and ankle. No acute fracture. No lytic or blastic lesions. Joint spaces preserved. Foot and ankle: Ankle mortise intact. Normal alignment of the bones of the foot. No acute fracture or dislocation. Prominent plantar calcaneal spur and Achilles tendon enthesophyte. IMPRESSION: 1. No evidence for acute fracture or dislocation in right tibia, foot or ankle. 2. Plantar calcaneal spur and Achilles tendon enthesophyte. Interpreted by: Talib Littlejohn MD Signed by: Talib Littlejohn MD 10/06/20 Final result Normal [facility] XR FOOT RIGHT (MIN 3 VIEWS)o n 10-06-2020 XR FOOT RIGHT (MIN 3 VIEWS) EXAMINATION: 2 XRAY VIEWS OF THE RIGHT TIBIA AND FIBULA; THREE XRAY VIEWS OF THE RIGHT ANKLE; THREE XRAY VIEWS OF THE RIGHT FOOT 10/06/2020 5:07 pm COMPARISON: None. HISTORY: ORDERING SYSTEM PROVIDED HISTORY: Bruising and pain after fall. TECHNOLOGIST PROVIDED HISTORY: Bruising and pain after fall. FINDINGS: Tibia fibula: Normal alignment at the knee and ankle. No acute fracture. No lytic or blastic lesions. Joint spaces preserved. Foot and ankle: Ankle mortise intact. Normal alignment of the bones of the foot. No acute fracture or dislocation. Prominent plantar calcaneal spur and Achilles tendon enthesophyte. IMPRESSION: 1. No evidence for acute fracture or dislocation in right tibia, foot or ankle. 2. Plantar calcaneal spur and Achilles tendon enthesophyte. Interpreted by: Talib Littlejohn MD Signed by: Talib Littlejohn MD 10/06/20 Final result Normal [facility] XR TIBIA FIBULA RIGHT (2 VIE WS)on 10-06-2020 XR TIBIA FIBULA RIGHT (2 VIEWS) EXAMINATION: 2 XRAY VIEWS OF THE RIGHT TIBIA AND FIBULA; THREE XRAY VIEWS OF THE RIGHT ANKLE; THREE XRAY VIEWS OF THE RIGHT FOOT 10/06/2020 5:07 pm COMPARISON: None. HISTORY: ORDERING SYSTEM PROVIDED HISTORY: Bruising and pain after fall. TECHNOLOGIST PROVIDED HISTORY: Bruising and pain after fall. FINDINGS: Tibia fibula: Normal alignment at the knee and ankle. No acute fracture. No lytic or blastic lesions. Joint spaces preserved. Foot and ankle: Ankle mortise intact. Normal alignment of the bones of the foot. No acute fracture or dislocation. Prominent plantar calcaneal spur and Achilles tendon enthesophyte. IMPRESSION: 1. No evidence for acute fracture or dislocation in right tibia, foot or ankle. 2. Plantar calcaneal spur and Achilles tendon enthesophyte. Interpreted by: Talib Littlejohn MD Signed by: Talib Littlejohn MD 10/06/20 Final result Normal [facility] CBC Auto Differentialon 11-0 Basophils (Bld) [#/Vol] 0.05 10*3/uL [place] Basophils/100 WBC (Bld) 1 % 0 - 2 % [place] Differential Type NOT REPORTED [place] Eosinophils (Bld) [#/Vol] 10*3/uL [place] Eosinophils/100 WBC (Bld) 0 % Low 1 - 4 % [place] Erythrocyte distribution width (RBC) [Ratio] 11.5 % Low 11.8 - 14.4 % [place] Hematocrit (Bld) [Volume fraction] 45.0 % 36.3 - 47.1 % [place] Hemoglobin (Bld) [Mass/Vol] 15.0 g/dL 11.9 - 15.1 g/dL [place] Immature granulocytes (Bld) [#/Vol] 0.04 10*3/uL [place] Immature granulocytes (Bld) [#/Vol] 0 % 0 [place] Interpretation and review of laboratory results Abnormal [place] Lymphocytes (Bld) [#/Vol] 1.64 10*3/uL [place] Lymphocytes/100 WBC (Bld) 16 % Low 24 - 43 % [place] MCH (RBC) [Entitic mass] 29.9 pg 25.2 - 33.5 pg [place] MCHC (RBC) [Mass/Vol] 33.3 g/dL 28.4 - 34.8 g/dL [place] MCV (RBC) [Entitic vol] 89.8 fL 82.6 - 102.9 fL [place] Monocytes (Bld) [#/Vol] 0.53 10*3/uL [place] Monocytes/100 WBC (Bld) 5 % 3 - 12 % [place] Platelet mean volume (Bld) [Entitic vol] 9.4 fL 8.1 - 13.5 fL [place] Platelets (Bld) [#/Vol] NOT REPORTED [place] Platelets (Bld) [#/Vol] 256 10*3/uL [place] RBC (Bld) [#/Vol] 5.01 10*6/uL 3.95 - 5.11 m/uL [place] RBC morphology finding Nom (Bld) NOT REPORTED [place] Segmented neutrophils/100 WBC (Bld) 78 % High 36 - 65 % [place] Segs Absolute 7.91 [place] WBC (Bld) [#/Vol] 0.0 10*3/uL 0.0 per 100 WBC [place] WBC (Bld) [#/Vol] 10.2 10*3/uL [place] WBC Morphology NOT REPORTED [place] COVID-19, PCRon 04-03-2020 SARS-CoV-2, Rapid Not Detected Not Detected [place] Comment on above: Rapid NAAT: The specimen is NEGATIVE for SARS-CoV-2, the novel coronavirus associated with COVID-19. The ID NOW COVID-19 assay is designed to detect the virus that causes COVID-19 in patients with signs and symptoms of infection who are suspected of COVID-19. An individual without symptoms of COVID-19 and who is not shedding SARS-CoV-2 virus would expect to have a negative (not detected) result in this assay. Negative results should be treated as presumptive and, if inconsistent with clinical signs and symptoms or necessary for patient management, should be tested with an alternative molecular assay. Negative results do not preclude SARS-CoV-2 infection and should not be used as the sole basis for patient management decisions. Fact sheet for Healthcare Providers: https://www.fda.gov/media/054461/download Fact sheet for Patients: https://www.fda.gov/media/512016/download Methodology: Isothermal Nucleic Acid Amplification Source .NASOPHARYNGEAL SWAB [place] Comprehensive Metabolic Pane l w/ Reflex to MGon 04-03-2020 Albumin [Mass/Vol] 4.5 g/dL 3.5 - 5.2 g/dL [place] Albumin/Globulin [Mass ratio] 1.7 {ratio} [place] ALP [Catalytic activity/Vol] 78 U/L 35 - 104 U/L [place] ALT [Catalytic activity/Vol] 12 U/L 5 - 33 U/L [place] Anion gap [Moles/Vol] 15 mmol/L 9 - 17 mmol/L [place] AST [Catalytic activity/Vol] 10 U/L <32 [place] Bilirubin Ql (U) 0.60 mg/dL 0.3 - 1.2 mg/dL [place] Bun/Cre Ratio 17 [place] Calcium [Mass/Vol] 9.1 mg/dL 8.6 - 10. 4 mg/dL [place] Chloride [Moles/Vol] 97 mmol/L Low 98 - 10 7 mmol/L [place] CO2 [Moles/Vol] 20 mmol/L 20 - 31 mmol/L [place] Creatinine [Mass/Vol] 0.64 mg/dL 0.5 - 0.9 mg/dL [place] GFR >60 >60 mL/min [place] GFR Non- >60 >60 mL/min [place] Glucose [Mass/Vol] 204 mg/dL High 70 - 99 mg/dL [place] Interpretation and review of laboratory results Abnormal [place] Potassium [Moles/Vol] 3.2 mmol/L Low 3.7 - 5.3 mmol/L [place] Protein [Mass/Vol] 7.1 g/dL 6.4 - 8.3 g/dL [place] Sodium [Moles/Vol] 132 mmol/L Low 135 - 144 mmol/L [place] Urea nitrogen [Mass/Vol] 11 mg/dL 6 - 20 mg/dL [place] Drug screen multi urineon Amphetamine Screen, Ur Negative NEGATIVE [place] Barbiturate Screen, Ur Negative NEGATIVE [place], [place] Benzodiazepine Screen, Urine Negative NEGATIVE [place] Buprenorphine Urine Negative NEGATIVE [place] Cannabinoid Scrn, Ur Positive Abnormal NEGATIVE [place], [place] Cocaine Metabolite, Urine Negative NEGATIVE [place] Interpretation and review of laboratory results Abnormal [place] MDMA, Urine NOT REPORTED NEGATIVE [place] Methadone Screen, Urine Negative NEGATIVE [place] Methamphetamine, Urine Positive Abnormal NEGATIVE [place] Opiates, Urine Negative NEGATIVE [place], [place] Oxycodone Screen, Ur Negative NEGATIVE [place], [place] Phencyclidine, Urine Negative NEGATIVE [place] Propoxyphene, Urine Negative NEGATIVE [place] Test Information NOT REPORTED [place] Tricyclic Antidepressants, Urine Negative NEGATIVE [facility] [place], [place] Comment on above: Drug screen results are to be used for medical purposes only. All positive results are unconfirmed. Testing for employment or legal uses should be sent to a reference laboratory for confirmation. EKG 12 Leadon 04-03-2020 Atrial Rate 106 BPM [place], [place] P [place] 48 degrees [place] P-R Interval 128 ms [place] Q-T Interval 396 ms [place] QRS Duration 90 ms [place] QTc Calculation (Bazett) 526 ms [place], [place] R [place] 53 degrees [place], [place] T [place] 30 degrees [place] Ventricular Rate 106 BPM [place] Sinus tachycardia Prolonged QT Abnormal ECG When compared with ECG of 29-MAR-2020 17:56, Nonspecific T wave abnormality no longer evident in Anterior leads QT has lengthened Confirmed by CYRUS TOVAR ([id number]) on 04/03/2020 10:54:10 PM [place] N[place], Mhpn Incoming [place] [facility] [place] 04/03/[place] 10:54 PM EST Sinus tachycardia Prolonged QT Abnormal ECG When compared with ECG of 29-MAR-2020 17:56, Nonspecific T wave abnormality no longer evident in Anterior leads QT has lengthened Confirmed by CYRUS TOVAR ([id number]) on 04/03/2020 10:54:10 PM [place] Ethanolon 04-03-2020 Ethanol [Mass/Vol] mg/dL <10 mg/dL [place] Ethanol percent <0.010 <0.010 % [place] Magnesiumon 04-03-2020 Magnesium [Mass/Vol] 1.8 mg/dL 1.6 - 2 .6 mg/dL [place] Metabolic Panelon 04-03-2020 GFR/1.73 sq M predicted among non-blacks MDRD (S/P/Bld) [Vol rate/Area] [place], [place] Comment on above: Stage 1: Some kidney damage normal GFR Stage 2: Mild kidney damage GFR 60-89 Stage 3: Moderate kidney damage GFR 30-59 Stage 4: Severe kidney damage GFR 15-29 Stage 5: Severe kidney damage GFR <15 ESRD - chronic treatment by dialysis or transplant Average GFR for 30-3 9 years old: 107 mL/min/1.73sq m Chronic Kidney Disease: <60 mL/min/1.73sq m Kidney failure: <15 mL/min/1.73sq m eGFR calculated using average adult body mass. Additional eGFR calculator available at: http://www.globalrph.[employer]/multiple_crcl_2012.htm Microscopic Urinalysison Amorphous, UA NOT REPORTED None [place], [place] Bacteria, UA TRACE Abnormal None [place] Casts UA NOT REPORTED /LPF [place] Crystals, UA NOT REPORTED None /HPF [place] Epithelial Cells UA 10 TO 20 [place] Interpretation and review of laboratory results Abnormal [place] Mucus, UA NOT REPORTED None [place] Other Observations UA NOT REPORTED NOT REQ. M [place] RBC (U) [#/Vol] 0 TO 2 [place] Renal Epithelial, UA NOT REPORTED 0 /HPF [place] Trichomonas, UA NOT REPORTED None [facility] [place] WBC, UA 2 TO 5 [place] Yeast, UA NOT REPORTED None [place] - [place] Otheron 04-03-2020 SARS-CoV-2 [place] , Urineon 0 Beta HCG ( test) Ql (U) Negative NEGATIVE [place] Comment on above: Specimens with hCG l evels near the threshold of the test (25 mIU/mL) may give a negative or indeterminate result. In such cases, another test should be performed with a new specimen in 48-72 hours. If early is suspected clinically in this setting, correlation with quantitative serum b-hCG level is suggested. [facility] has confirmed the use of plasma for this test. This has not been cleared or approved by the U.S. Food and Drug Administration. The FDA has determined that such clearance is not necessary. T4on 04-03-2020 T4, Total 8.9 ug/dL 4.5 - 10.9 ug/dL [place] TSH without Reflexon 020 TSH Qn 2.31 m[IU]/L [place] Urinalysis, reflex to micros copicon 04-03-2020 Bilirubin Urine Negative NEGATIVE [place] Color, UA YELLOW YELLOW [place] Glucose, Ur Negative NEGATIVE [place] Interpretation and review of laboratory results Abnormal [place] Ketones Ql (U) 1+ Abnormal NEGATIVE [place], [place] Leukocyte esterase Test strip Ql (U) TRACE Abnormal NEGATIVE [place] Nitrite, Urine Negative NEGATIVE [place] pH, UA 6.0 [place] Protein (U) [Mass/Vol] Negative NEGATIVE [place] Specific [place], UA 1.025 High [place], [place] Turbidity UA SLIGHTLY CLOUDY Abnormal [place], [place] Urinalysis Comments NOT REPORTED [place] Urine Hgb Negative NEGATIVE [place] Urobilinogen, Urine Normal Normal [place] Cult,Urineon 03-30-2020 Cult,Urine Specimen Description .CLEAN CATCH URINE Special Requests NOT REPORTED Culture NO SIGNIFICANT GROWTH Report Status FINAL 03/30/2020 Normal [facility] Comment on above: Performed By: #### U RC #### [address] [id number] Tubing Tester: Bipin Villa MD [facility] [address] [place] [address] [place] [address] Tubing Tester: Alfredo Best MD Acetaminophenon 03-29-2020 Acetaminophen [Mass/Vol] ug/mL Low 10-30 [facility] Comment on above: Performed By: #### C DP, CMPX #### [address] [place] [address] Tubing Tester: Alfredo Best MD Acetaminophen levelon 2019 Acetaminophen [Mass/Vol] <5 Low 10 - 30 ug/mL [place] Interpretation and review of laboratory results Abnormal [place] CBC Auto Differentialon 03-04 Basophils (Bld) [#/Vol] 0.04 10*3/uL [place] Basophils/100 WBC (Bld) 0 % 0 - 2 % [place] Differential Type NOT REPORTED [place] Eosinophils (Bld) [#/Vol] 10*3/uL [place] Eosinophils/100 WBC (Bld) 0 % Low 1 - 4 % [place] Erythrocyte distribution width (RBC) [Ratio] 11.7 % Low 11.8 - 14.4 % [place] Hematocrit (Bld) [Volume fraction] 48.5 % High 36.3 - 47.1 % [place] Hemoglobin (Bld) [Mass/Vol] 16.7 g/dL High 11.9 - 15.1 g/dL [place] Immature granulocytes (Bld) [#/Vol] 0.05 10*3/uL [place] Immature granulocytes (Bld) [#/Vol] 0 % 0 [place] Interpretation and review of laboratory results Abnormal [place] Lymphocytes (Bld) [#/Vol] 2.23 10*3/uL [place] Lymphocytes/100 WBC (Bld) 16 % Low 24 - 43 % [place] MCH (RBC) [Entitic mass] 30.3 pg 25.2 - 33.5 pg [place] MCHC (RBC) [Mass/Vol] 34.4 g/dL 28.4 - 34.8 g/dL [place] MCV (RBC) [Entitic vol] 88.0 fL 82.6 - 102.9 fL [place] Monocytes (Bld) [#/Vol] 0.64 10*3/uL [place] Monocytes/100 WBC (Bld) 5 % 3 - 12 % [place] Platelet mean volume (Bld) [Entitic vol] 8.6 fL 8.1 - 13.5 fL [place] Platelets (Bld) [#/Vol] 383 10*3/uL [place] Platelets (Bld) [#/Vol] NOT REPORTED [place] RBC (Bld) [#/Vol] 5.51 10*6/uL High 3.95 - 5.11 m/uL [place] RBC morphology finding Nom (Bld) NOT REPORTED [place] Segmented neutrophils/100 WBC (Bld) 79 % High 36 - 65 % [place] Segs Absolute 10.66 [place] WBC (Bld) [#/Vol] 0.0 10*3/uL 0.0 per 100 WBC [place] WBC (Bld) [#/Vol] 13.6 10*3/uL [place] WBC Morphology NOT REPORTED [place], [place] CBC with Diffon 03-29-2020 Abs. Basophil 0.04 k/uL Normal 0.00-0.20 [facility] Comment on above: Performed By: #### C DP, CMPX #### [address] [address] Tubing Tester: Alfredo Best MD Abs. Eosinophil <0.03 Normal 0.00-0.44 [facility] Comment on above: Performed By: #### C DP, CMPX #### [address] [place] [id number] Tubing Tester: Alfredo Best MD Abs.Imm.Granulocyte 0.05 k/uL Normal 0.00-0.30 [facility] Comment on above: Performed By: #### C DP, CMPX #### [address] [place], [place] [id number] Tubing Tester: Alfredo Best MD Abs.Neutrophil (Seg) 10.66 k/uL High 1.50-8.10 [facility] Comment on above: Performed By: #### C DP, CMPX #### [address] [place], [facility]83 Tubing Tester: Alfredo Best MD Basophils/100 WBC (Bld) 0 % Normal 0-2 [facility] Comment on above: Performed By: #### C DP, CMPX #### [address] [place] [id number] Tubing Tester: Alfredo Best MD Eosinophils/100 WBC (Bld) 0 % Low 1-4 [facility] Comment on above: Performed By: #### C DP, CMPX #### [facility] [address] [place] [address] Tubing Tester: Alfredo Best MD Erythrocyte distribution width (RBC) [Ratio] 11.7 % Low 11.8-14.4 [facility] Comment on above: Performed By: #### C DP, CMPX #### [facility] [address] [place] [address] Tubing Tester: Alfredo Best MD Hematocrit (Bld) [Volume fraction] 48.5 % High 36.3-47.1 [facility] Comment on above: Performed By: #### C DP, CMPX #### [address] [place] [address] Tubing Tester: lAfredo Best MD Hemoglobin (Bld) [Mass/Vol] 16.7 g/dL High 11.9-15.1 [facility] Comment on above: Performed By: #### C DP, CMPX #### [address] [place] [address] Tubing Tester: Alfredo Best MD Immature granulocytes/100 WBC (Bld) 0 % Normal 0 [facility] Comment on above: Performed By: #### C DP, CMPX #### [address] [place] [address] Tubing Tester: Alfredo Best MD Lymphocytes (Bld) [#/Vol] 2.23 10*3/uL Normal 1.10-3.70 [facility] Comment on above: Performed By: #### C DP, CMPX #### [facility] [address] [place] [id number] Tubing Tester: Alfredo Best MD Lymphocytes/100 WBC (Bld) 16 % Low 24-43 [facility] Comment on above: Performed By: #### C DP, CMPX #### [facility] [address] [place], [facility]83 Tubing Tester: Alfredo Best MD MCH (RBC) [Entitic mass] 30.3 pg Normal 25.2-33.5 [facility] Comment on above: Performed By: #### C DP, CMPX #### [facility] [address] [place], [facility]83 Tubing Tester: Alfredo Best MD MCHC (RBC) [Mass/Vol] 34.4 g/dL Normal 28.4-34.8 [facility] Comment on above: Performed By: #### C DP, CMPX #### [address] [place], [facility]83 Tubing Tester: Alfredo Best MD MCV (RBC) [Entitic vol] 88.0 fL Normal 82.6-102.9 [facility] Comment on above: Performed By: #### C DP, CMPX #### [facility] [address] [place], [facility]83 Tubing Tester: Alfredo Best MD Monocytes (Bld) [#/Vol] 0.64 10*3/uL Normal 0.10-1.20 [facility] Comment on above: Performed By: #### C DP, CMPX #### [facility] [address] [place], [place] [address] Tubing Tester: Alfredo Best MD Monocytes/100 WBC (Bld) 5 % Normal 3-12 [facility] Comment on above: Performed By: #### C DP, CMPX #### [facility] [address] [place], [facility]83 Tubing Tester: Alfredo Best MD Neutrophil (Seg) 79 % High 36-65 [facility] Comment on above: Performed By: #### C DP, CMPX #### [facility] [address] [place], [facility]83 Tubing Tester: Alfredo Best MD NRBC Automated 0.0 per 100 WBC Normal 0.0 [facility] Comment on above: Performed By: #### C DP, CMPX #### [facility] [address] [place] [address] Tubing Tester: Alfredo Best MD Platelet mean volume (Bld) [Entitic vol] 8.6 fL Normal 8.1-13.5 [facility] Comment on above: Performed By: #### C DP, CMPX #### [facility] [address] [place] [address] Tubing Tester: Alfredo Best MD Platelets (Bld) [#/Vol] 383 10*3/uL Normal 138-453 [facility] Comment on above: Performed By: #### C DP, CMPX #### [facility] [address] [place] [address] Tubing Tester: Alfredo Best MD RBC (Bld) [#/Vol] 5.51 10*6/uL High 3.95-5.11 [facility] Comment on above: Performed By: #### C DP, CMPX #### [facility] [address] [place] [address] Tubing Tester: Alfredo Best MD WBC (Bld) [#/Vol] 13.6 10*3/uL High 3.5-11.3 [facility] Comment on above: Performed By: #### C DP, CMPX #### [facility] [address] [place] [address] Tubing Tester: Alfredo Best MD Auto Diff Performed NOT REPORTED Normal [facility] Comment on above: Performed By: #### C DP, CMPX #### [facility] [address] [place], [place] [id number] Tubing Tester: Alfredo Best MD Platelet Estimate NOT REPORTED Normal [facility] Comment on above: Performed By: #### C DP, CMPX #### [facility] [address] [place], [place] 6[address]83 Tubing Tester: Alfredo Best MD RBC morphology finding Nom (Bld) NOT REPORTED Normal [facility] Comment on above: Performed By: #### C DP, CMPX #### [facility] [address] [place] [address] Tubing Tester: Alfredo Best MD WBC Morphology NOT REPORTED Normal [facility] Comment on above: Performed By: #### C DP, CMPX #### [facility] [address] [place] [address] Tubing Tester: Alfredo Best MD COVID-19, PCRon 03-29-2020 SARS-CoV-2, Rapid Not Detected Not Detected [place] Comment on above: Rapid NAAT: The specimen is NEGATIVE for SARS-CoV-2, the novel coronavirus associated with COVID-19. The ID NOW COVID-19 assay is designed to detect the virus that causes COVID-19 in patients with signs and symptoms of infection who are suspected of COVID-19. An individual without symptoms of COVID-19 and who is not shedding SARS-CoV-2 virus would expect to have a negative (not detected) result in this assay. Negative results should be treated as presumptive and, if inconsistent with clinical signs and symptoms or necessary for patient management, should be tested with an alternative molecular assay. Negative results do not preclude SARS-CoV-2 infection and should not be used as the sole basis for patient management decisions. Fact sheet for Healthcare Providers: https://www.fda.gov/media/049370/download Fact sheet for Patients: https://www.fda.gov/media/434690/download Methodology: Isothermal Nucleic Acid Amplification Source .NASOPHARYNGEAL SWAB [place] Comp Metabolic Pr/rfx MGon 1 (cont.) Normal [facility] Comment on above: Result Comment: Aver age GFR for 30-39 years old: 107 mL/min/1.73sq m Chronic Kidney Disease: <60 mL/min/1.73sq m Kidney failure: <15 mL/min/1.73sq m eGFR calculated using average adult body mass. Additional eGFR calculator available at: http://www.[employer]/multiple_crcl_2011.htm Performed By: #### C DP, CMPX #### [facility] [address] [place] [address] Tubing Tester: Alfredo Best MD Albumin [Mass/Vol] 5.1 g/dL Normal 3.5-5.2 [facility] Comment on above: Performed By: #### C DP, CMPX #### [facility] [address] [place], [place] [id number] Tubing Tester: Alfredo Best MD Albumin/Glob Ratio 1.6 Normal 1.0-2.5 [facility] Comment on above: Performed By: #### C DP, CMPX #### [facility] [address] [place], [place] [id number] Tubing Tester: Alfredo Best MD Alkaline Phos 79 U/L Normal 35-104 [facility] Comment on above: Performed By: #### C DP, CMPX #### [facility] [address] [place], [place] 7[address]83 Tubing Tester: Alfredo Best MD ALT [Catalytic activity/Vol] 14 U/L Normal 5-33 [facility] Comment on above: Performed By: #### C DP, CMPX #### [facility] [address] [place], [place] 0100583 Tubing Tester: Alfredo Best MD Anion gap [Moles/Vol] 14 mmol/L Normal 9-17 [facility] Comment on above: Performed By: #### C DP, CMPX #### [facility] [address] [place] [address] Tubing Tester: Alfredo Best MD AST [Catalytic activity/Vol] 10 U/L Normal <32 [facility] Comment on above: Performed By: #### C DP, CMPX #### [facility] [address] [place], [place] [id number] Tubing Tester: Alfredo Best MD Bilirubin [Mass/Vol] 0.49 mg/dL Normal 0.3-1.2 [facility] Comment on above: Performed By: #### C DP, CMPX #### [facility] [address] [place], [place] [id number] Tubing Tester: Alfredo Best MD BUN/CRE Ratio 15 Normal 9-20 [facility] Comment on above: Performed By: #### C DP, CMPX #### [facility] [address] [place], [place] 680[address]83 Tubing Tester: Alfredo Best MD Calcium [Mass/Vol] 10.1 mg/dL Normal 8.6-10.4 [facility] Comment on above: Performed By: #### C DP, CMPX #### [facility] [address] [place], [place] 769[address]83 Tubing Tester: Alfredo Best MD Chloride [Moles/Vol] 101 mmol/L Normal 98-107 [facility] Comment on above: Performed By: #### C DP, CMPX #### [facility] [address] [place], [place] [id number] Tubing Tester: Alfredo Best MD CO2 [Moles/Vol] 20 mmol/L Normal 20-31 [facility] Comment on above: Performed By: #### C DP, CMPX #### [facility] [address] [place], [place] [phone] Tubing Tester: Alfredo Best MD Creatinine [Mass/Vol] 0.59 mg/dL Normal 0.50-0.90 [facility] Comment on above: Performed By: #### C DP, CMPX #### [facility] [address] [place], [place] [phone] Tubing Tester: Alfredo Best MD GFR, Amer >60 Normal >60 [facility] Comment on above: Performed By: #### C DP, CMPX #### [facility] [address] [place], [place] 8[address]83 Tubing Tester: Alfredo Best MD GFR,non Amer >60 Normal >60 [facility] Comment on above: Performed By: #### C DP, CMPX #### [facility] [address] [place], [place] 3475783 Tubing Tester: Alfredo Best MD Glucose [Mass/Vol] 129 mg/dL High 70-99 [facility] Comment on above: Performed By: #### C DP, CMPX #### [facility] [address] [place], [place] [id number] Tubing Tester: Alfredo Best MD Potassium [Moles/Vol] 3.6 mmol/L Low 3.7-5.3 [facility] Comment on above: Performed By: #### C DP, CMPX #### [facility] [address] [place], [place] [phone] Tubing Tester: Alfredo Best MD Protein [Mass/Vol] 8.2 g/dL Normal 6.4-8.3 [facility] Comment on above: Performed By: #### C DP, CMPX #### [facility] [address] [place], [place] [id number] Tubing Tester: Alfredo Best MD Sodium [Moles/Vol] 135 mmol/L Normal 135-144 [facility] Comment on above: Performed By: #### C DP, CMPX #### [facility] [address] [place] [address] Tubing Tester: Alfredo Best MD Staging: Normal [facility] Comment on above: Result Comment: Stag e 1: Some kidney damage normal GFR Stage 2: Mild kidney damage GFR 60-89 Stage 3: Moderate kidney damage GFR 30-59 Stage 4: Severe kidney damage GFR 15-29 Stage 5: Severe kidney damage GFR <15 ESRD - chronic treatment by dialysis or transplant Performed By: #### C DP, CMPX #### [facility] [address] [place] [address] Tubing Tester: Alfredo Best MD Urea nitrogen [Mass/Vol] 9 mg/dL Normal 6-20 [facility] Comment on above: Performed By: #### C DP, CMPX #### [facility] [address] [place] [address] Tubing Tester: Alfredo Best MD Comprehensive Metabolic Pane l w/ Reflex to MGon 03-29-2020 Albumin [Mass/Vol] 5.1 g/dL 3.5 - 5.2 g/dL [place] Albumin/Globulin [Mass ratio] 1.6 {ratio} [place] ALP [Catalytic activity/Vol] 79 U/L 35 - 104 U/L [place] ALT [Catalytic activity/Vol] 14 U/L 5 - 33 U/L [place] Anion gap [Moles/Vol] 14 mmol/L 9 - 17 mmol/L [place] AST [Catalytic activity/Vol] 10 U/L <32 [place] Bilirubin Ql (U) 0.49 mg/dL 0.3 - 1.2 mg/dL [place] Bun/Cre Ratio 15 [place] Calcium [Mass/Vol] 10.1 mg/dL 8.6 - 10. 4 mg/dL [place] Chloride [Moles/Vol] 101 mmol/L 98 - 10 7 mmol/L [place] CO2 [Moles/Vol] 20 mmol/L 20 - 31 mmol/L [place] Creatinine [Mass/Vol] 0.59 mg/dL 0.5 - 0.9 mg/dL [place] GFR >60 >60 mL/min [place] GFR Non- >60 >60 mL/min [place] Glucose [Mass/Vol] 129 mg/dL High 70 - 99 mg/dL [place] Interpretation and review of laboratory results Abnormal [place] Potassium [Moles/Vol] 3.6 mmol/L Low 3.7 - 5.3 mmol/L [place] Protein [Mass/Vol] 8.2 g/dL 6.4 - 8.3 g/dL [place] Sodium [Moles/Vol] 135 mmol/L 135 - 144 mmol/L [place] Urea nitrogen [Mass/Vol] 9 mg/dL 6 - 20 mg/dL [place] Drug Scr, Abuse, Uron 2019 Amphetamine(s),Ur Positive Abnormal NEG [facility] Comment on above: Performed By: #### D AU #### [facility] [address] [place] [address] [place] [address] Tubing Tester: Alfredo Best MD Barbiturate(s),Ur Negative Normal NEG [facility] Comment on above: Performed By: #### D AU #### [facility] [address] [place] [address] Tubing Tester: Alfredo Best MD Benzodiazepine(s) Positive Abnormal NEG [facility] Comment on above: Performed By: #### D AU #### [address] [place] [address] Tubing Tester: Alfredo Best MD Buprenorphrine, Ur Negative Normal NEG [facility] Comment on above: Performed By: #### D AU #### [facility] [address] [place] [address] Tubing Tester: Alfredo Best MD Cannabinoid(s),Ur Positive Abnormal NEG [facility] Comment on above: Performed By: #### D AU #### [facility] [address] [place] [address] Tubing Tester: Alfredo Best MD Cocaine Metabolite Negative Normal [facility] Comment on above: Performed By: #### D AU #### [facility] [address] [place], [place] [id number] Tubing Tester: Alfredo Best MD Methadone Ql (U) Negative Normal [facility] Comment on above: Performed By: #### D AU #### [facility] [address] [place], [place] [id number] Tubing Tester: Alfredo Best MD Methamphetamine, Ur Positive Abnormal NEG [facility] Comment on above: Performed By: #### D AU #### [facility] [address] [place], [place] [id number] Tubing Tester: Alfredo Best MD Opiate(s), Ur Negative Normal NEG [facility] Comment on above: Performed By: #### D AU #### [facility] [address] [place] [address] [place] [place], [place] [id number] Tubing Tester: Alfredo Best MD Oxycodone, Urine Negative Normal NEG [facility] Comment on above: Performed By: #### D AU #### [facility] [address] [place] [address] [place] [address] Tubing Tester: Alfredo Best MD Phencyclidine, Ur Negative Normal [facility] Comment on above: Performed By: #### D AU #### [facility] [address] [place] [address] [place] [place], [place] [id number] Tubing Tester: Alfredo Best MD Propoxyphene,Urine Negative Normal [facility] Comment on above: Performed By: #### D AU #### [facility] [address] [place] [address] Tubing Tester: Alfredo Best MD Tricyclic antidepressants Screen Ql (U) Negative Normal [facility] Comment on above: Result Comment: Drug screen results are to be used for medical purposes only. All positive results are unconfirmed. Testing for employment or legal uses should be sent to a reference laboratory for confirmation. Performed By: #### D AU #### [facility] [address] [place] [address] [place] [address] Tubing Tester: Alfredo Best MD Interpretive Info NOT REPORTED Normal [facility] Comment on above: Performed By: #### D AU #### [facility] [address] [place], [place] [id number] Tubing Tester: Alfredo Best MD MDMA, Urine NOT REPORTED Normal NEG [facility] Comment on above: Performed By: #### D AU #### [facility] [address] [place] [address] Tubing Tester: Alfredo Best MD Drug screen multi urineon Amphetamine Screen, Ur Positive Abnormal NEGATIVE [facility] Barbiturate Screen, Ur Negative NEGATIVE [facility] Benzodiazepine Screen, Urine Positive Abnormal NEGATIVE [facility] [place] Buprenorphine Urine Negative NEGATIVE [facility] [place] Cannabinoid Scrn, Ur Positive Abnormal NEGATIVE [facility] [place] Cocaine Metabolite, Urine Negative NEGATIVE [facility] [place] Interpretation and review of laboratory results Abnormal [facility] [place] MDMA, Urine NOT REPORTED NEGATIVE [facility] [place] Methadone Screen, Urine Negative NEGATIVE [facility] [place] Methamphetamine, Urine Positive Abnormal NEGATIVE [facility] [place] Opiates, Urine Negative NEGATIVE [facility] Oxycodone Screen, Ur Negative NEGATIVE [facility] Phencyclidine, Urine Negative NEGATIVE [facility] [place] Propoxyphene, Urine Negative NEGATIVE [facility] [place] Test Information NOT REPORTED [facility], [place] Tricyclic Antidepressants, Urine Negative NEGATIVE [facility] [place] Comment on above: Drug screen results are to be used for medical purposes only. All positive results are unconfirmed. Testing for employment or legal uses should be sent to a reference laboratory for confirmation. EKG 12 Leadon 03-29-2020 Atrial Rate 95 BPM [facility], [place] P [place] 35 degrees [facility], [place] P-R Interval 136 ms [facility], [place] Q-T Interval 370 ms [facility], [place] QRS Duration 80 ms [facility], [place] QTc Calculation (Bazett) 464 ms [place], [place] R [place] 45 degrees [facility], [place] T [place] 40 degrees [facility], [place] Ventricular Rate 95 BPM [place], [place] Nuno, Mhpn Incoming E kg Results From [facility] - 03/29/2020 9:25 PM EDT Normal sinus rhythm Normal ECG When compared with ECG of 01-APR-2012 19:31, Nonspecific T wave abnormality now evident in Anterior leads Confirmed by CYRUS TOVAR ([id number]) on 03/29/2020 9:25:21 PM [place] Normal sinus rhythm Normal ECG When compared with ECG of 01-APR-2012 19:31, Nonspecific T wave abnormality now evident in Anterior leads Confirmed by CYRUS TOVAR ([id number]) on 03/29/2020 9:25:21 PM [place] HCG, Quanton 03-29-2020 HCG, Quant <1 Normal <5 [facility] Comment on above: Result Comment: Non-preg premeno <=5 Postmeno <=8 Male <=3 If HCG results do not concur with clinical observations, additional testing to confirm results is recommended. Elevated results not associated with may be found in patients with other diseases such as tumors of the germ cells (testis, ovaries, etc.), bladder, pancreas, stomach, lungs, and liver. Performed By: #### U SHADI, UA #### [facility] [address] [place] [address] Tubing Tester: Alfredo Best MD HCG, Quantitative, on 03-29-2020 hCG Quant <1 <5 IU/L [place] Comment on above: Non-preg premeno <=5 Postmeno <=8 Male <=3 If HCG results do not concur with clinical observations, additional testing to confirm results is recommended. Elevated results not associated with may be found in patients with other diseases such as tumors of the germ cells (testis, ovaries, etc.), bladder, pancreas, stomach, lungs, and liver. Metabolic Panelon 03-29-2020 GFR/1.73 sq M predicted among non-blacks MDRD (S/P/Bld) [Vol rate/Area] [place] Comment on above: Stage 1: Some kidney damage normal GFR Stage 2: Mild kidney damage GFR 60-89 Stage 3: Moderate kidney damage GFR 30-59 Stage 4: Severe kidney damage GFR 15-29 Stage 5: Severe kidney damage GFR <15 ESRD - chronic treatment by dialysis or transplant Average GFR for 30-3 9 years old: 107 mL/min/1.73sq m Chronic Kidney Disease: <60 mL/min/1.73sq m Kidney failure: <15 mL/min/1.73sq m eGFR calculated using average adult body mass. Additional eGFR calculator available at: http://www.[employer]/multiple_crcl_2012.htm Microscopic Urinalysison Amorphous, UA TRACE Abnormal None [place], [place] Bacteria, UA 1+ Abnormal None [place] Casts UA NOT REPORTED /LPF [place] Crystals, UA NOT REPORTED None /HPF [place], [place] Epithelial Cells UA 10 TO 20 [place], [place] Interpretation and review of laboratory results Abnormal [place] Mucus, UA NOT REPORTED None [place] Other Observations UA NOT REPORTED NOT REQ. M [place] RBC (U) [#/Vol] 2 TO 5 [place], [place] Renal Epithelial, UA NOT REPORTED 0 /HPF [place], [place] Trichomonas, UA NOT REPORTED None [place], [place] WBC, UA 5 TO 10 [place] Yeast, UA NOT REPORTED None [place] - [place] Otheron 03-29-2020 SARS-CoV-2 [place] [id number] 03-29-2020 SARS-CoV-2 (COVID-19) RNA HARJINDER+probe Ql (Unsp spec) Normal [facility] Comment on above: Performed By: #### C OVID #### [facility] [address] [place] [address] Tubing Tester: Alfredo Best MD SARS-CoV-2 (COVID-19) RNA HARJINDER+probe Ql (Unsp spec) Not detected Normal [facility] Comment on above: Result Comment: Rapid NAAT: The specimen is NEGATIVE for SARS-CoV-2, the novel coronavirus associated with COVID-19. The ID NOW COVID-19 assay is designed to detect the virus that causes COVID-19 in patients with signs and symptoms of infection who are suspected of COVID-19. An individual without symptoms of COVID-19 and who is not shedding SARS-CoV-2 virus would expect to have a negative (not detected) result in this assay. Negative results should be treated as presumptive and, if inconsistent with clinical signs and symptoms or necessary for patient management, should be tested with an alternative molecular assay. Negative results do not preclude SARS-CoV-2 infection and should not be used as the sole basis for patient management decisions. Fact sheet for Healthcare Providers: https://www.fda.gov/media/362895/download Fact sheet for Patients: https://www.fda.gov/media/809202/download Methodology: Isothermal Nucleic Acid Amplification Performed By: #### C OVID #### [facility] [address] [place] [address] [place] [address] Tubing Tester: Alfredo Best MD SARS-CoV-2 (COVID-19) RNA HARJINDER+probe Ql (Unsp spec) Normal [facility] Comment on above: Performed By: #### C OVID #### [address] [place] [address] Tubing Tester: Alfredo Best MD SARS-CoV-2 (COVID-19) RNA HARJINDER+probe Ql (Unsp spec) .NASOPHARYNGEAL SWAB Normal [facility] Comment on above: Performed By: #### C OVID #### [facility] [address] [place] [address] Tubing Tester: Alfredo Best MD Salicylateon 03-29-2020 Salicylate <1 Low 3-10 [facility] Comment on above: Performed By: #### U MICAO, UA #### [facility] [address] [place] [address] Tubing Tester: Alfredo Best MD Interpretation and review of laboratory results Abnormal [place] Salicylate Lvl <1 Low 3 - 10 mg/dL [place] Urinalysis, Routineon 2019 Acetoacetic Acid,Ur 2+ Abnormal NEG [facility] Comment on above: Performed By: #### U MICAO, UA #### [facility] [address] [place] [address] Tubing Tester: Alfredo Best MD Bilirubin, SemiQt,Ur Negative Normal NEG [facility] Comment on above: Performed By: #### U MICAO, UA #### [facility] [address] [place], [place] [phone] Tubing Tester: Alfredo Best MD Color (U) YELLOW Normal YEL [facility] Comment on above: Performed By: #### U MICAO, UA #### [facility] [address] [place], [place] [id number] Tubing Tester: Alfredo Best MD Glucose Ql (U) Negative Normal NEG [facility] Comment on above: Performed By: #### U MICAO, UA #### [facility] [address] [place] [address] Tubing Tester: Alfredo Best MD Hemoglobin, Ur TRACE Abnormal NEG [facility] Comment on above: Performed By: #### U MICAO, UA #### [facility] [address] [place], [facility] Tubing Tester: Alfredo Best MD Leukocyte esterase Test strip Ql (U) SMALL Abnormal NEG [facility] Comment on above: Performed By: #### U MICAO, UA #### [facility] [address] [place] [address] Tubing Tester: Alfredo Best MD Nitrite,Ur Negative Normal [facility] Comment on above: Performed By: #### U MICAO, UA #### [facility] [address] [place] [address] Tubing Tester: Alfredo Best MD PH,Ur 6.5 Normal 5.0-9.0 [facility] Comment on above: Performed By: #### U MICAO, UA #### [facility] [address] [place], [place] [phone] Tubing Tester: Alfredo Best MD Protein Ql (U) Negative Normal NEG [facility] Comment on above: Performed By: #### U MICAO, UA #### [facility] [address] [place], [place] [id number] Tubing Tester: Alfredo Best MD Spec. [place],Ur 1.010 Normal 1.010-1.02 0 [facility] Comment on above: Performed By: #### U MICAO, UA #### [facility] [address] [place] [address] [place] [place], [place] [id number] Tubing Tester: Alfredo Best MD Turbidity CLEAR Normal CLEAR [facility] Comment on above: Performed By: #### U MICAO, UA #### [facility] [address] [place], [place] [phone] Tubing Tester: Alfredo Best MD Urobilinogen,Ur Normal Normal NORM [facility] Comment on above: Performed By: #### U MICAO, UA #### [facility] [address] [place] [address] [place], [place] [id number] Tubing Tester: Alfredo Best MD Comment NOT REPORTED Normal [facility] Comment on above: Performed By: #### U MICAO, UA #### [facility] [address] [place], [place] [phone] Tubing Tester: Alfredo Best MD Urinalysis, reflex to [facility] copicon 03-29-2020 Bilirubin Urine Negative NEGATIVE [facility] [place] Color, UA YELLOW YELLOW [facility] Glucose, Ur Negative NEGATIVE [facility] [place] Interpretation and review of laboratory results Abnormal [facility] [place] Ketones Ql (U) 2+ Abnormal NEGATIVE [place] Leukocyte esterase Test strip Ql (U) SMALL Abnormal NEGATIVE [place] Nitrite, Urine Negative NEGATIVE [place] pH, UA 6.5 [place], [place] Protein (U) [Mass/Vol] Negative NEGATIVE [place], [place] Specific [place], UA 1.010 [place], [place] Turbidity UA CLEAR CLEAR [place] Urinalysis Comments NOT REPORTED [place], [place] Urine Hgb TRACE Abnormal NEGATIVE [place] Urobilinogen, Urine Normal Normal [place] Urinalysis,Microon 0 ----- Normal [facility] Comment on above: Performed By: #### U MICAO, UA #### [facility] [address] [place] [address] Tubing Tester: Alfredo Best MD Amorphous sediment LM Ql (Urine sed) TRACE Abnormal [facility] Comment on above: Performed By: #### U MICAO, UA #### [facility] [address] [place] [address] Tubing Tester: Alfredo Best MD Bacteria 1+ Abnormal [facility] Comment on above: Performed By: #### U MICAO, UA #### [facility] [address] [place] [address] Tubing Tester: Alfredo Best MD Epithelial cells LM Ql (Urine sed) 10 TO 20 Normal 0-25 [facility] Comment on above: Performed By: #### U MICAO, UA #### [facility] [address] [place] [address] Tubing Tester: Alfredo Best MD Urine RBC's 2 TO 5 Normal 0-2 [facility] Comment on above: Performed By: #### U MICAO, UA #### [facility] [address] [place] [address] Tubing Tester: Alfredo Best MD Urine WBC's 5 TO 10 Normal 0-5 [facility] Comment on above: Performed By: #### U MICAO, UA #### [facility] [address] [place], [place] [address]83 Tubing Tester: Alfredo Best MD Casts NOT REPORTED Normal [facility] Comment on above: Performed By: #### U MICAO, UA #### [facility] [address] [place], [place] [phone] Tubing Tester: Alfredo Best MD Crystals LM Nom (Urine sed) NOT REPORTED Normal NONE [facility] Comment on above: Performed By: #### U NADEGEO, UA #### [facility] [address] [place], [place] [address] Tubing Tester: Alfredo Best MD Epithelial, Renal NOT REPORTED Normal 0 [facility] Comment on above: Performed By: #### U NADEGEO, UA #### [facility] [address] [place], [facility] Tubing Tester: Alfredo Best MD Mucus Strands NOT REPORTED Normal NONE [facility] Comment on above: Performed By: #### U NADEGEO, UA #### [facility] [address] [place], [place] [address]188383 Tubing Tester: Alfredo Best MD Other Observations NOT REPORTED Normal NREQ [facility] Comment on above: Performed By: #### U NADEGEO, UA #### [facility] [address] [place], [place] 39[address]183 Tubing Tester: Alfredo Best MD Trichomonas NOT REPORTED Normal NONE [facility] Comment on above: Performed By: #### U NADEGEO, UA #### [facility] [address] [place] [address] Tubing Tester: Alfredo Best MD Yeast NOT REPORTED Normal [facility] Comment on above: Performed By: #### U NADEGEO, UA #### [facility] [address] [place] [address] Tubing Tester: Alfredo Best MD XR CHEST PORTABLEon 03-29-20 20 XR CHEST PORTABLE EXAMINATION: ONE XRAY VIEW OF THE CHEST 03/29/2020 5:23 pm COMPARISON: October 21, 2018 HISTORY: ORDERING SYSTEM PROVIDED HISTORY: medical clearance TECHNOLOGIST PROVIDED HISTORY: medical clearance FINDINGS: Lungs are clear. No cardiomegaly. No pulmonary edema. IMPRESSION: Negative portable chest. Interpreted by: Chandan Marquez MD Signed by: Chandan Marquez MD 03/29/20 Final result Normal [facility] EXAMINATION: ONE XRA Y VIEW OF THE CHEST 03/29/2020 5:23 pm COMPARISON: October 21, 2018 HISTORY: ORDERING SYSTEM PROVIDED HISTORY: medical clearance TECHNOLOGIST PROVIDED HISTORY: medical clearance FINDINGS: Lungs are clear. No cardiomegaly. No pulmonary edema. [place] N[place], Mhpn Incoming Radiant Results From [facility] - 03/29/2020 5:35 PM EDT EXAMINATION: ONE XRAY VIEW OF THE CHEST 03/29/2020 5:23 pm COMPARISON: October 21, 2018 HISTORY: ORDERING SYSTEM PROVIDED HISTORY: medical clearance TECHNOLOGIST PROVIDED HISTORY: medical clearance FINDINGS: Lungs are clear. No cardiomegaly. No pulmonary edema. IMPRESSION: Negative portable chest. [place] Negative portable chest. [place] CBC Auto Differentialon 02-02 Basophils (Bld) [#/Vol] 0.05 10*3/uL [place] Basophils/100 WBC (Bld) 1 % 0 - 2 % [place] Differential Type NOT REPORTED [place] Eosinophils (Bld) [#/Vol] 10*3/uL [place] Eosinophils/100 WBC (Bld) 0 % Low 1 - 4 % [place] Erythrocyte distribution width (RBC) [Ratio] 11.9 % 11.8 - 14.4 % [place] Hematocrit (Bld) [Volume fraction] 44.3 % 36.3 - 47.1 % [place] Hemoglobin (Bld) [Mass/Vol] 15.4 g/dL High 11.9 - 15.1 g/dL [place] Immature granulocytes (Bld) [#/Vol] 0 % 0 [place] Immature granulocytes (Bld) [#/Vol] 10*3/uL [place] Interpretation and review of laboratory results Abnormal [place] Lymphocytes (Bld) [#/Vol] 1.73 10*3/uL [place] Lymphocytes/100 WBC (Bld) 20 % Low 24 - 43 % [place] MCH (RBC) [Entitic mass] 31.2 pg 25.2 - 33.5 pg [place] MCHC (RBC) [Mass/Vol] 34.8 g/dL 28.4 - 34.8 g/dL [place] MCV (RBC) [Entitic vol] 89.9 fL 82.6 - 102.9 fL [place] Monocytes (Bld) [#/Vol] 0.43 10*3/uL [place] Monocytes/100 WBC (Bld) 5 % 3 - 12 % [place] Platelet mean volume (Bld) [Entitic vol] 8.8 fL 8.1 - 13.5 fL [place] Platelets (Bld) [#/Vol] 294 10*3/uL [place] Platelets (Bld) [#/Vol] NOT REPORTED [place] RBC (Bld) [#/Vol] 4.93 10*6/uL 3.95 - 5.11 m/uL [place] RBC morphology finding Nom (Bld) NOT REPORTED [place] Segmented neutrophils/100 WBC (Bld) 74 % High 36 - 65 % [place] Segs Absolute 6.41 [place], [place] WBC (Bld) [#/Vol] 8.6 10*3/uL [place] WBC (Bld) [#/Vol] 0.0 10*3/uL 0.0 per 100 WBC [place] WBC Morphology NOT REPORTED [place], [place] CBC with Diffon 02-23-2020 Abs. Basophil 0.05 k/uL Normal 0.00-0.20 [facility] Comment on above: Performed By: #### C DP, HCG, CMPX #### [facility] [address] [place], [place] [address] Tubing Tester: Alfredo Best MD Abs. Eosinophil <0.03 Normal 0.00-0.44 [facility] Comment on above: Performed By: #### C DP, HCG, CMPX #### [facility] [address] [place], [place] [address] Tubing Tester: Alfredo Best MD Abs.Imm.Granulocyte <0.03 Normal 0.00-0.30 [facility] Comment on above: Performed By: #### C DP, HCG, CMPX #### [address] [place] [address] Tubing Tester: Alfredo Best MD Abs.Neutrophil (Seg) 6.41 k/uL Normal 1.50-8.10 [facility] Comment on above: Performed By: #### C DP, HCG, CMPX #### [address] [place], [place] [address] Tubing Tester: Alfredo Best MD Basophils/100 WBC (Bld) 1 % Normal 0-2 [facility] Comment on above: Performed By: #### C DP, HCG, CMPX #### [address] [place], [place] [address] Tubing Tester: Alfredo Best MD Eosinophils/100 WBC (Bld) 0 % Low 1-4 [facility] Comment on above: Performed By: #### C DP, HCG, CMPX #### [address] [place] [id number] Tubing Tester: Alfredo Best MD Erythrocyte distribution width (RBC) [Ratio] 11.9 % Normal 11.8-14.4 [facility] Comment on above: Performed By: #### C DP, HCG, CMPX #### [facility] [address] [place] [facility] Tubing Tester: Alfredo Best MD Hematocrit (Bld) [Volume fraction] 44.3 % Normal 36.3-47.1 [facility] Comment on above: Performed By: #### C DP, HCG, CMPX #### [facility] [address] [place] [facility]83 Tubing Tester: Alfredo Best MD Hemoglobin (Bld) [Mass/Vol] 15.4 g/dL High 11.9-15.1 [facility] Comment on above: Performed By: #### C DP, HCG, CMPX #### [address] [place] [facility]83 Tubing Tester: Alfredo Best MD Immature granulocytes/100 WBC (Bld) 0 % Normal 0 [facility] Comment on above: Performed By: #### C DP, HCG, CMPX #### [address] [place], [facility]83 Tubing Tester: Alfredo Best MD Lymphocytes (Bld) [#/Vol] 1.73 10*3/uL Normal 1.10-3.70 [facility] Comment on above: Performed By: #### C DP, HCG, CMPX #### [address] [place] [facility]83 Tubing Tester: Alfredo Best MD Lymphocytes/100 WBC (Bld) 20 % Low 24-43 [facility] Comment on above: Performed By: #### C DP, HCG, CMPX #### [facility] [address] [place], [facility]83 Tubing Tester: Alfredo Best MD MCH (RBC) [Entitic mass] 31.2 pg Normal 25.2-33.5 [facility] Comment on above: Performed By: #### C DP, HCG, CMPX #### [address] [place] [facility]83 Tubing Tester: Alfredo Best MD MCHC (RBC) [Mass/Vol] 34.8 g/dL Normal 28.4-34.8 [facility] Comment on above: Performed By: #### C DP, HCG, CMPX #### [facility] [address] [place] [address] Tubing Tester: Alfredo Best MD MCV (RBC) [Entitic vol] 89.9 fL Normal 82.6-102.9 [facility] Comment on above: Performed By: #### C DP, HCG, CMPX #### [facility] [address] [place], [facility]83 Tubing Tester: Alfredo Best MD Monocytes (Bld) [#/Vol] 0.43 10*3/uL Normal 0.10-1.20 [facility] Comment on above: Performed By: #### C DP, HCG, CMPX #### [facility] [address] [place], [facility]83 Tubing Tester: Alfredo Best MD Monocytes/100 WBC (Bld) 5 % Normal 3-12 [facility] Comment on above: Performed By: #### C DP, HCG, CMPX #### [facility] [address] [place], [facility]83 Tubing Tester: Alfredo Best MD Neutrophil (Seg) 74 % High 36-65 [facility] Comment on above: Performed By: #### C DP, HCG, CMPX #### [facility] [address] [place], [facility]83 Tubing Tester: Alfredo Best MD NRBC Automated 0.0 per 100 WBC Normal 0.0 [facility] Comment on above: Performed By: #### C DP, HCG, CMPX #### [facility] [address] [place], [place] [id number] Tubing Tester: Alfredo Best MD Platelet mean volume (Bld) [Entitic vol] 8.8 fL Normal 8.1-13.5 [facility] Comment on above: Performed By: #### C DP, HCG, CMPX #### [facility] [address] [place], [place] [phone] Tubing Tester: Alfredo Best MD Platelets (Bld) [#/Vol] 294 10*3/uL Normal 138-453 [facility] Comment on above: Performed By: #### C DP, HCG, CMPX #### [facility] [address] [place], [place] [id number] Tubing Tester: Alfredo Best MD RBC (Bld) [#/Vol] 4.93 10*6/uL Normal 3.95-5.11 [facility] Comment on above: Performed By: #### C DP, HCG, CMPX #### [facility] [address] [place], [facility]83 Tubing Tester: Alfredo Best MD WBC (Bld) [#/Vol] 8.6 10*3/uL Normal 3.5-11.3 [facility] Comment on above: Performed By: #### C DP, HCG, CMPX #### [facility] [address] [place], [place] [id number] Tubing Tester: Alfredo Best MD Auto Diff Performed NOT REPORTED Normal [facility] Comment on above: Performed By: #### C DP, HCG, CMPX #### [facility] [address] [place], [facility]83 Tubing Tester: Alfredo Best MD Platelet Estimate NOT REPORTED Normal [facility] Comment on above: Performed By: #### C DP, HCG, CMPX #### [facility] [address] [place] [address] Tubing Tester: Alfredo eBst MD RBC morphology finding Nom (Bld) NOT REPORTED Normal [facility] Comment on above: Performed By: #### C DP, HCG, CMPX #### [facility] [address] [place] [address] Tubing Tester: Alfredo Best MD WBC Morphology NOT REPORTED Normal [facility] Comment on above: Performed By: #### C DP, HCG, CMPX #### [facility] [address] [place] [address] Tubing Tester: Alfredo Best MD CT ABDOMEN PELVIS W IV CONTR [place] 02-23-2020 CT ABDOMEN PELVIS W IV CONTRAST EXAMINATION: CT OF THE ABDOMEN AND PELVIS WITH CONTRAST 02/23/2020 9:02 am TECHNIQUE: CT of the abdomen and pelvis was performed with the administration of intravenous contrast. Multiplanar reformatted images are provided for review. Dose modulation, iterative reconstruction, and/or weight based adjustment of the mA/kV was utilized to reduce the radiation dose to as low as reasonably achievable. COMPARISON: February 21, 2020 HISTORY: ORDERING SYSTEM PROVIDED HISTORY: worsening abdominal pain, CT from 2 days ago, showing ?colitis TECHNOLOGIST PROVIDED HISTORY: worsening abdominal pain, CT from 2 days ago, showing ?colitis FINDINGS: Lower Chest: Redemonstrated is a 3 mm right lower lobe subpleural nodule. Organs: No focal liver lesion. No calcified gallstones or biliary ductal dilatation. The spleen is normal in size without focal lesion. The pancreas and the adrenal glands are unremarkable. The kidneys enhance symmetrically without collecting system dilatation. No concerning renal lesion. GI/Bowel: Again demonstrated is apparent wall thickening of the distal colon without significant pericolonic fat stranding. This is probably artifact related to under distension. No bowel obstruction. The appendix is normal. Pelvis: Bilateral tubal occlusive device noted. The adnexa, uterus and urinary bladder are within normal limits. Peritoneum/Retroperitoneu m: No abdominal lymphadenopathy or ascites. Bones/Soft Tissues: There has been ventral mesh herniorrhaphy and bilateral inguinal herniorrhaphy. No acute osseous abnormality. IMPRESSION: Apparent wall thickening of the distal colon felt to be related to under distension given that there is no pericolonic fat stranding. No acute process in the abdomen or pelvis. Interpreted by: Boubacar Phan MD Signed by: Boubacar Phan MD 02/23/20 Final result Normal [facility] Comp Metabolic Pr/rfx MGon 0 02-23-2020 (cont.) Normal [facility] Comment on above: Result Comment: Aver age GFR for 30-39 years old: 107 mL/min/1.73sq m Chronic Kidney Disease: <60 mL/min/1.73sq m Kidney failure: <15 mL/min/1.73sq m eGFR calculated using average adult body mass. Additional eGFR calculator available at: http://www.[employer]/multiple_crcl_2011.htm Performed By: #### U SHADI UA #### [facility] [address] [place], [place] [phone] Tubing Tester: Alfredo Best MD Albumin [Mass/Vol] 4.4 g/dL Normal 3.5-5.2 [facility] Comment on above: Performed By: #### Erinn HSU UA #### [facility] [address] [place], [place] [phone] Tubing Tester: Alfredo Best MD Albumin/Glob Ratio 1.5 Normal 1.0-2.5 [facility] Comment on above: Performed By: #### Erinn HSU UA #### [facility] [address] [place] [address] Tubing Tester: Alfredo Best MD Alkaline Phos 71 U/L Normal 35-104 [facility] Comment on above: Performed By: #### Erinn HSU UA #### [facility] [address] [place], [place] [phone] Tubing Tester: Alfredo Best MD ALT [Catalytic activity/Vol] 12 U/L Normal 5-33 [facility] Comment on above: Performed By: #### U SHADI UA #### [facility] [address] [place] [address] Tubing Tester: Alfredo Best MD Anion gap [Moles/Vol] 12 mmol/L Normal 9-17 [facility] Comment on above: Performed By: #### U MICAO, UA #### [facility] [address] [place], [place] [phone] Tubing Tester: Alfredo Best MD AST [Catalytic activity/Vol] 15 U/L Normal <32 [facility] Comment on above: Performed By: #### U MICAO, UA #### [facility] [address] [place], [place] [phone] Tubing Tester: Alfredo Best MD Bilirubin [Mass/Vol] 0.31 mg/dL Normal 0.3-1.2 [facility] Comment on above: Performed By: #### U MICAO, UA #### [facility] [address] [place], [place] [phone] Tubing Tester: Alfredo Best MD BUN/CRE Ratio 18 Normal 9-20 [facility] Comment on above: Performed By: #### U NADEGEO, UA #### [facility] [address] [place], [place] [address]83 Tubing Tester: Alfredo Best MD Calcium [Mass/Vol] 9.3 mg/dL Normal 8.6-10.4 [facility] Comment on above: Performed By: #### U MICAO, UA #### [facility] [address] [place], [place] [phone] Tubing Tester: Alfredo Best MD Chloride [Moles/Vol] 103 mmol/L Normal 98-107 [facility] Comment on above: Performed By: #### U MICAO, UA #### [facility] [address] [place], [place] [phone] Tubing Tester: Alfredo Best MD CO2 [Moles/Vol] 22 mmol/L Normal 20-31 [facility] Comment on above: Performed By: #### U MICAO, UA #### [facility] [address] [place], [place] [phone] Tubing Tester: Alfredo Best MD Creatinine [Mass/Vol] 0.68 mg/dL Normal 0.50-0.90 [facility] Comment on above: Performed By: #### U MICAO, UA #### [facility] [address] [place], [place] [id number] Tubing Tester: Alfredo Best MD GFR, Amer >60 Normal >60 [facility] Comment on above: Performed By: #### U MICAO, UA #### [facility] [address] [place] [address] Tubing Tester: Alfredo Best MD GFR,non Amer >60 Normal >60 [facility] Comment on above: Performed By: #### U MICAO, UA #### [facility] [address] [place], [place] [phone] Tubing Tester: Alfredo Best MD Glucose [Mass/Vol] 193 mg/dL High 70-99 [facility] Comment on above: Performed By: #### U MICAO, UA #### [facility] [address] [place], [place] [address]83 Tubing Tester: Alfredo Best MD Potassium [Moles/Vol] 3.9 mmol/L Normal 3.7-5.3 [facility] Comment on above: Performed By: #### U MICAO, UA #### [facility] [address] [place], [place] [phone] Tubing Tester: Alfredo Best MD Protein [Mass/Vol] 7.4 g/dL Normal 6.4-8.3 [facility] Comment on above: Performed By: #### U MICAO, UA #### [facility] [address] [place] [address] Tubing Tester: Alfredo Best MD Sodium [Moles/Vol] 137 mmol/L Normal 135-144 [facility] Comment on above: Performed By: #### U MICAO, UA #### [facility] [address] [place], [place] [phone] Tubing Tester: Alfredo Best MD Staging: Normal [facility] Comment on above: Result Comment: Stag e 1: Some kidney damage normal GFR Stage 2: Mild kidney damage GFR 60-89 Stage 3: Moderate kidney damage GFR 30-59 Stage 4: Severe kidney damage GFR 15-29 Stage 5: Severe kidney damage GFR <15 ESRD - chronic treatment by dialysis or transplant Performed By: #### U SHADI UA #### [facility] [address] [place] [address] Tubing Tester: Alfredo Best MD Urea nitrogen [Mass/Vol] 12 mg/dL Normal 6-20 [facility] Comment on above: Performed By: #### Erinn HSU UA #### [facility] [address] [place] [address] Tubing Tester: Alfredo Best MD Comprehensive Metabolic Pane l w/ Reflex to on 02-23-2020 Albumin [Mass/Vol] 4.4 g/dL 3.5 - 5.2 g/dL [place] Albumin/Globulin [Mass ratio] 1.5 {ratio} [place] ALP [Catalytic activity/Vol] 71 U/L 35 - 104 U/L [place] ALT [Catalytic activity/Vol] 12 U/L 5 - 33 U/L [place] Anion gap [Moles/Vol] 12 mmol/L 9 - 17 mmol/L [place] AST [Catalytic activity/Vol] 15 U/L <32 [place] Bilirubin Ql (U) 0.31 mg/dL 0.3 - 1.2 mg/dL [place] Bun/Cre Ratio 18 [place], [place] Calcium [Mass/Vol] 9.3 mg/dL 8.6 - 10. 4 mg/dL [place] Chloride [Moles/Vol] 103 mmol/L 98 - 10 7 mmol/L [place] CO2 [Moles/Vol] 22 mmol/L 20 - 31 mmol/L [place] Creatinine [Mass/Vol] 0.68 mg/dL 0.5 - 0.9 mg/dL [place] GFR >60 >60 mL/min [place] GFR Non- >60 >60 mL/min [place] Glucose [Mass/Vol] 193 mg/dL High 70 - 99 mg/dL [place] Interpretation and review of laboratory results Abnormal [place] Potassium [Moles/Vol] 3.9 mmol/L 3.7 - 5.3 mmol/L [place] Protein [Mass/Vol] 7.4 g/dL 6.4 - 8.3 g/dL [place] Sodium [Moles/Vol] 137 mmol/L 135 - 144 mmol/L [place] Urea nitrogen [Mass/Vol] 12 mg/dL 6 - 20 mg/dL [place] HCG Qualitative, Serumon hCG Qual Negative NEGATIVE [place] Comment on above: Specimens with hCG l evels near the threshold of the test (25 mIU/mL) may give a negative or indeterminate result. In such cases, another test should be performed with a new specimen in 48-72 hours. If early is suspected clinically in this setting, correlation with quantitative serum b-hCG level is suggested. [facility] has confirmed the use of plasma for this test. This has not been cleared or approved by the U.S. Food and Drug Administration. The FDA has determined that such clearance is not necessary. HCG Screen, Bloodon 02-23-20 20 HCG Screen, Blood Negative Normal NEG [facility] Comment on above: Result Comment: Spec imens with hCG levels near the threshold of the test (25 mIU/mL) may give a negative or indeterminate result. In such cases, another test should be performed with a new specimen in 48-72 hours. If early is suspected clinically in this setting, correlation with quantitative serum b-hCG level is suggested. [facility] use [facility] plasma for this test. This has not been cleared or approved by the U.S. Food and Drug Administration. The FDA has determined that such clearance is not necessary. Performed By: #### C DP, HCG, CMPX #### [address] [place] [address] Tubing Tester: Alfredo Best MD Lactic Acidon 02-23-2020 Lactate [Moles/Vol] 1.2 mmol/L Normal 0.5-2.2 [facility] Comment on above: Performed By: #### C DP, CMPX #### [facility] [address] [place] [address] Tubing Tester: Alfredo Best MD Lactic Acid,Whole Bl NOT REPORTED Normal 0.7-2.1 [facility] Comment on above: Performed By: #### C DP, CMPX #### [facility] [address] [place] [address] Tubing Tester: Alfredo Best MD Lactic acid, plasmaon 2019 Lactate [Moles/Vol] 1.2 mmol/L 0.5 - 2. 2 mmol/L [place] Lactic Acid, Whole Blood NOT REPORTED 0.7 - 2.1 mmol/L [place] Metabolic Panelon 02-23-2020 GFR/1.73 sq M predicted among non-blacks MDRD (S/P/Bld) [Vol rate/Area] [place] Comment on above: Average GFR for 30-3 9 years old: 107 mL/min/1.73sq m Chronic Kidney Disease: <60 mL/min/1.73sq m Kidney failure: <15 mL/min/1.73sq m eGFR calculated using average adult body mass. Additional eGFR calculator available at: http://www.[employer]/multiple_crcl_2012.htm Stage 1: Some kidney damage normal GFR Stage 2: Mild kidney damage GFR 60-89 Stage 3: Moderate kidney damage GFR 30-59 Stage 4: Severe kidney damage GFR 15-29 Stage 5: Severe kidney damage GFR <15 ESRD - chronic treatment by dialysis or transplant Microscopic Urinalysison Amorphous, UA NOT REPORTED None [facility], [place] Bacteria, UA TRACE Abnormal None [place] Casts UA NOT REPORTED /LPF [place] Crystals, UA NOT REPORTED None /HPF [facility] [place] Epithelial Cells UA 10 TO 20 [place] Interpretation and review of laboratory results Abnormal [place] Mucus, UA NOT REPORTED None [place] Other Observations UA NOT REPORTED NOT REQ. M [facility], [place] RBC (U) [#/Vol] 0 TO 2 [facility] [place] Renal Epithelial, UA NOT REPORTED 0 /HPF Me [facility], [place] Trichomonas, UA NOT REPORTED None [facility] [place] WBC, UA 2 TO 5 [place] Yeast, UA NOT REPORTED None [facility], [place] Urinalysis, Routineon 2019 Acetoacetic Acid,Ur Negative Normal NEG [facility] Comment on above: Performed By: #### U MICAO, UA #### [facility] [address] [place] [address] Tubing Tester: Alfredo Best MD Bilirubin, SemiQt,Ur Negative Normal NEG [facility] Comment on above: Performed By: #### U MICAO, UA #### [facility] [address] [place] [address] Tubing Tester: Alfredo Best MD Color (U) YELLOW Normal L [facility] Comment on above: Performed By: #### U MICAO, UA #### [facility] [address] [place] [address] Tubing Tester: Alfredo Best MD Glucose Ql (U) Negative Normal NEG [facility] Comment on above: Performed By: #### U MICAO, UA #### [facility] [address] [place] [address] Tubing Tester: Alfredo Best MD Hemoglobin, Ur TRACE Abnormal NEG [facility] Comment on above: Performed By: #### U MICAO, UA #### [facility] [address] [place] [address] Tubing Tester: Alfredo Best MD Leukocyte esterase Test strip Ql (U) TRACE Abnormal NEG [facility] Comment on above: Performed By: #### U MICAO, UA #### [facility] [address] [place] [address] Tubing Tester: Alfredo Best MD Nitrite,Ur Negative Normal NEG [facility] Comment on above: Performed By: #### U MICAO, UA #### [facility] [address] [place], [place] [phone] Tubing Tester: Alfredo Best MD PH,Ur 6.5 Normal 5.0-9.0 [facility] Comment on above: Performed By: #### U MICAO, UA #### [facility] [address] [place] [address] Tubing Tester: Alfredo Best MD Protein Ql (U) Negative Normal NEG [facility] Comment on above: Performed By: #### U MICAO, UA #### [address] [place] [address] Tubing Tester: Alfredo Best MD Spec. [place],Ur <1.005 Low 1.010-1.02 0 [facility] Comment on above: Performed By: #### U MICAO, UA #### [address] [place] [address] Tubing Tester: Alfredo Best MD Turbidity CLEAR Normal CLEAR [facility] Comment on above: Performed By: #### U MICAO, UA #### [facility] [address] [place] [address] Tubing Tester: Alfredo Best MD Urobilinogen,Ur Normal Normal NORM [facility] Comment on above: Performed By: #### U MICAO, UA #### [facility] [address] [place] [address] Tubing Tester: Alfredo Best MD Comment NOT REPORTED Normal [facility] Comment on above: Performed By: #### U NADEGEO, UA #### [facility] [address] [place] [address] Tubing Tester: Alfredo Best MD Urinalysis, reflex to micros copicon 02-23-2020 Bilirubin Urine Negative NEGATIVE [place] Color, UA YELLOW YELLOW [place] Glucose, Ur Negative NEGATIVE [place] Interpretation and review of laboratory results Abnormal [place] Ketones Ql (U) Negative NEGATIVE [place] Leukocyte esterase Test strip Ql (U) TRACE Abnormal NEGATIVE [place] Nitrite, Urine Negative NEGATIVE [facility], [place] pH, UA 6.5 [place] Protein (U) [Mass/Vol] Negative NEGATIVE [place], [place] Specific [place], UA <1.005 Low [place] Turbidity UA CLEAR CLEAR [place] Urinalysis Comments NOT REPORTED [place] Urine Hgb TRACE Abnormal NEGATIVE [place] Urobilinogen, Urine Normal Normal [place] Urinalysis,Microon 0 ----- Normal [facility] Comment on above: Performed By: #### U SHADI UA #### [facility] [address] [place] [address] Tubing Tester: Alfredo Best MD Bacteria TRACE Abnormal NONE [facility] Comment on above: Performed By: #### U SHADI, UA #### [facility] [address] [place] [address] Tubing Tester: Alfredo Best MD Epithelial cells LM Ql (Urine sed) 10 TO 20 Normal 0-25 [facility] Comment on above: Performed By: #### U SHADI, UA #### [facility] [address] [place] [address] Tubing Tester: Alfredo Best MD Urine RBC's 0 TO 2 Normal 0-2 [facility] Comment on above: Performed By: #### U NADEGEO, UA #### [facility] [address] [place] [address] Tubing Tester: Alfredo Best MD Urine WBC's 2 TO 5 Normal 0-5 [facility] Comment on above: Performed By: #### U MICAO, UA #### [facility] [address] [place], [place] [phone] Tubing Tester: Alfredo Best MD Amorphous sediment LM Ql (Urine sed) NOT REPORTED Normal NONE [facility] Comment on above: Performed By: #### U MICAO, UA #### [facility] [address] [place] [address] Tubing Tester: Alfredo Best MD Casts NOT REPORTED Normal [facility] Comment on above: Performed By: #### U MICAO, UA #### [facility] [address] [place], [place] [address]83 Tubing Tester: Alfredo Best MD Crystals LM Nom (Urine sed) NOT REPORTED Normal NONE [facility] Comment on above: Performed By: #### U MICAO, UA #### [facility] [address] [place], [place] [phone] Tubing Tester: Alfredo Best MD Epithelial, Renal NOT REPORTED Normal 0 [facility] Comment on above: Performed By: #### U MICAO, UA #### [facility] [address] [place], [place] [phone] Tubing Tester: Alfredo Best MD Mucus Strands NOT REPORTED Normal NONE [facility] Comment on above: Performed By: #### U MICAO, UA #### [facility] [address] [place], [place] 2200[address] Tubing Tester: Alfredo Best MD Other Observations NOT REPORTED Normal NREQ [facility] Comment on above: Performed By: #### U MICAO, UA #### [facility] [address] [place] [address] Tubing Tester: Alfredo Best MD Trichomonas NOT REPORTED Normal NONE [place] [facility] Comment on above: Performed By: #### U SHADI, UA #### [facility] [address] [place] [address] Tubing Tester: Alfredo Best MD Yeast NOT REPORTED Normal NONE [facility] Comment on above: Performed By: #### U SHADI, UA #### [facility] [address] [place] [address] Tubing Tester: Alfredo Best MD CBC Auto Differentialon 02-02 0-2020 Basophils (Bld) [#/Vol] 0.03 10*3/uL [place] Basophils/100 WBC (Bld) 0 % 0 - 2 % [place] Differential Type NOT REPORTED [place] Eosinophils (Bld) [#/Vol] 10*3/uL [place] Eosinophils/100 WBC (Bld) 0 % Low 1 - 4 % [place] Erythrocyte distribution width (RBC) [Ratio] 11.9 % 11.8 - 14.4 % [place] Hematocrit (Bld) [Volume fraction] 48.6 % High 36.3 - 47.1 % [place] Hemoglobin (Bld) [Mass/Vol] 16.9 g/dL High 11.9 - 15.1 g/dL [place] Immature granulocytes (Bld) [#/Vol] 0 % 0 [place] Immature granulocytes (Bld) [#/Vol] 0.03 10*3/uL [place] Interpretation and review of laboratory results Abnormal [place] Lymphocytes (Bld) [#/Vol] 1.35 10*3/uL [place] Lymphocytes/100 WBC (Bld) 17 % Low 24 - 43 % [place] MCH (RBC) [Entitic mass] 30.9 pg 25.2 - 33.5 pg [place] MCHC (RBC) [Mass/Vol] 34.8 g/dL 28.4 - 34.8 g/dL [place] MCV (RBC) [Entitic vol] 88.8 fL 82.6 - 102.9 fL [place] Monocytes (Bld) [#/Vol] 0.44 10*3/uL [place] Monocytes/100 WBC (Bld) 5 % 3 - 12 % [place] Platelet mean volume (Bld) [Entitic vol] 8.9 fL 8.1 - 13.5 fL [place] Platelets (Bld) [#/Vol] NOT REPORTED [place] Platelets (Bld) [#/Vol] 321 10*3/uL [place] RBC (Bld) [#/Vol] 5.47 10*6/uL High 3.95 - 5.11 m/uL [place] RBC morphology finding Nom (Bld) NOT REPORTED [place] Segmented neutrophils/100 WBC (Bld) 78 % High 36 - 65 % [place] Segs Absolute 6.28 [place], [place] WBC (Bld) [#/Vol] 8.1 10*3/uL [place] WBC (Bld) [#/Vol] 0.0 10*3/uL 0.0 per 100 WBC [place] WBC Morphology NOT REPORTED [place], [place] CBC with Diffon 02-21-2020 Abs. Basophil 0.03 k/uL Normal 0.00-0.20 [facility] Comment on above: Performed By: #### C DP, CMPX #### [facility] [address] [place] [address] Tubing Tester: Alfredo Best MD Abs. Eosinophil <0.03 Normal 0.00-0.44 [facility] Comment on above: Performed By: #### C DP, CMPX #### [facility] [address] [place] [address] Tubing Tester: Alfredo Best MD Abs.Imm.Granulocyte 0.03 k/uL Normal 0.00-0.30 [facility] Comment on above: Performed By: #### C DP, CMPX #### [facility] [address] [place], [facility]83 Tubing Tester: Alfredo Best MD Abs.Neutrophil (Seg) 6.28 k/uL Normal 1.50-8.10 [facility] Comment on above: Performed By: #### C DP, CMPX #### [facility] [address] [place], [facility]83 Tubing Tester: Alfredo Best MD Basophils/100 WBC (Bld) 0 % Normal 0-2 [facility] Comment on above: Performed By: #### C DP, CMPX #### [address] [place], [facility]83 Tubing Tester: Alfredo Best MD Eosinophils/100 WBC (Bld) 0 % Low 1-4 [facility] Comment on above: Performed By: #### C DP, CMPX #### [address] [place], [facility]83 Tubing Tester: Alfredo Best MD Erythrocyte distribution width (RBC) [Ratio] 11.9 % Normal 11.8-14.4 [facility] Comment on above: Performed By: #### C DP, CMPX #### [address] [place], [facility]83 Tubing Tester: Alfredo Best MD Hematocrit (Bld) [Volume fraction] 48.6 % High 36.3-47.1 [facility] Comment on above: Performed By: #### C DP, CMPX #### [address] [place] [address] Tubing Tester: Alfredo Best MD Hemoglobin (Bld) [Mass/Vol] 16.9 g/dL High 11.9-15.1 [facility] Comment on above: Performed By: #### C DP, CMPX #### [facility] [address] [place], [place] [id number] Tubing Tester: Alfredo Best MD Immature granulocytes/100 WBC (Bld) 0 % Normal 0 [facility] Comment on above: Performed By: #### C DP, CMPX #### [facility] [address] [place], [place] [address]683 Tubing Tester: Alfredo Best MD Lymphocytes (Bld) [#/Vol] 1.35 10*3/uL Normal 1.10-3.70 [facility] Comment on above: Performed By: #### C DP, CMPX #### [facility] [address] [place] [address] Tubing Tester: Alfredo Best MD Lymphocytes/100 WBC (Bld) 17 % Low 24-43 [facility] Comment on above: Performed By: #### C DP, CMPX #### [facility] [address] [place], [facility]83 Tubing Tester: Alfredo Best MD MCH (RBC) [Entitic mass] 30.9 pg Normal 25.2-33.5 [facility] Comment on above: Performed By: #### C DP, CMPX #### [address] [place], [place] [id number] Tubing Tester: Alfredo Best MD MCHC (RBC) [Mass/Vol] 34.8 g/dL Normal 28.4-34.8 [facility] Comment on above: Performed By: #### C DP, CMPX #### [facility] [address] [place], [facility]83 Tubing Tester: Alfredo Best MD MCV (RBC) [Entitic vol] 88.8 fL Normal 82.6-102.9 [facility] Comment on above: Performed By: #### C DP, CMPX #### [facility] [address] [place], [facility]83 Tubing Tester: Alfredo Best MD Monocytes (Bld) [#/Vol] 0.44 10*3/uL Normal 0.10-1.20 [facility] Comment on above: Performed By: #### C DP, CMPX #### [facility] [address] [place], [place] [address]67683 Tubing Tester: Alfredo Best MD Monocytes/100 WBC (Bld) 5 % Normal 3-12 [facility] Comment on above: Performed By: #### C DP, CMPX #### [facility] [address] [place] [address] Tubing Tester: Alfredo Best MD Neutrophil (Seg) 78 % High 36-65 [facility] Comment on above: Performed By: #### C DP, CMPX #### [facility] [address] [place], [place] [id number] Tubing Tester: Alfredo Best MD NRBC Automated 0.0 per 100 WBC Normal 0.0 [facility] Comment on above: Performed By: #### C DP, CMPX #### [facility] [address] [place] [address] Tubing Tester: Alfredo Best MD Platelet mean volume (Bld) [Entitic vol] 8.9 fL Normal 8.1-13.5 [facility] Comment on above: Performed By: #### C DP, CMPX #### [facility] [address] [place] [address] Tubing Tester: Alfredo Best MD Platelets (Bld) [#/Vol] 321 10*3/uL Normal 138-453 [facility] Comment on above: Performed By: #### C DP, CMPX #### [facility] [address] [place], [place] [id number] Tubing Tester: Alfredo Best MD RBC (Bld) [#/Vol] 5.47 10*6/uL High 3.95-5.11 [facility] Comment on above: Performed By: #### C DP, CMPX #### [facility] [address] [place], [place] [id number] Tubing Tester: Alfredo Best MD WBC (Bld) [#/Vol] 8.1 10*3/uL Normal 3.5-11.3 [facility] Comment on above: Performed By: #### C DP, CMPX #### [facility] [address] [place], [place] [id number] Tubing Tester: Alfredo Best MD Auto Diff Performed NOT REPORTED Normal [facility] Comment on above: Performed By: #### C DP, CMPX #### [facility] [address] [place], [place] [address]83 Tubing Tester: Alfredo Best MD Platelet Estimate NOT REPORTED Normal [facility] Comment on above: Performed By: #### C DP, CMPX #### [facility] [address] [place], [place] [phone] Tubing Tester: Alfredo Best MD RBC morphology finding Nom (Bld) NOT REPORTED Normal [facility] Comment on above: Performed By: #### C DP, CMPX #### [facility] [address] [place], [place] [phone] Tubing Tester: Alfredo Best MD WBC Morphology NOT REPORTED Normal [facility] Comment on above: Performed By: #### C DP, CMPX #### [facility] [address] [place], [place] [address]83 Tubing Tester: Alfredo Best MD CT ABDOMEN PELVIS W IV CONTR [place] 02-21-2020 CT ABDOMEN PELVIS W IV CONTRAST EXAMINATION: CT OF THE ABDOMEN AND PELVIS WITH CONTRAST 02/21/2020 9:48 am TECHNIQUE: CT of the abdomen and pelvis was performed with the administration of intravenous contrast. Multiplanar reformatted images are provided for review. Dose modulation, iterative reconstruction, and/or weight based adjustment of the mA/kV was utilized to reduce the radiation dose to as low as reasonably achievable. COMPARISON: 10/28/2016 HISTORY: ORDERING SYSTEM PROVIDED HISTORY: diffuse, history of hernia surgeries TECHNOLOGIST PROVIDED HISTORY: diffuse, history of hernia surgeries Abdominal pain FINDINGS: Lower Chest: Visualized portion of the lower chest demonstrates no acute abnormality. There is stable 3 mm benign-appearing subpleural nodule in the right lower lobe seen on series 2, image 23. Organs: Liver enhances normally without evidence of intrahepatic biliary ductal dilatation. The spleen, pancreas and adrenal glands are unremarkable. The kidneys enhance symmetrically without evidence of hydronephrosis. The gallbladder is unremarkable. GI/Bowel: There is no evidence of bowel obstruction or free intraperitoneal air. Mild diffuse wall thickening is seen involving the transverse, descending and sigmoid colon. However, the colon is not well distended and no obvious pericolic stranding is seen. This may be simply related to under distention but the possibility of colitis cannot be completely excluded. There are multiple diverticula. No abscess is seen. Pelvis: There is no evidence of pelvic mass, lymphadenopathy or free fluid. Peritoneum/Retroperitoneu m: No evidence of retroperitoneal lymphadenopathy. No intraperitoneal adenopathy is seen. Bones/Soft Tissues: No acute abnormality of the visualized osseous structures. Postsurgical changes are seen in the anterior abdominal wall from prior hernia repair. IMPRESSION: 1. Mild diffuse colonic wall thickening extending from the proximal transverse colon to the sigmoid colon. This is nonspecific and might be artifact related to under distension. If clinically indicated, follow-up endoscopy could be done to evaluate for colitis. 2. Diverticulosis. 3. Otherwise, no evidence of acute intra-abdominal or intrapelvic process. Interpreted by: Sj Lama MD Signed by: Sj Lama MD 02/21/20 Final result Normal [facility] CT ABDOMEN PELVIS W IV CONTR AST Additional Contrast? Noneon 02-21-2020 1. Mild diffuse colo keily wall thickening extending from the proximal transverse colon to the sigmoid colon. This is nonspecific and might be artifact related to under distension. If clinically indicated, follow-up endoscopy could be done to evaluate for colitis. 2. Diverticulosis. 3. Otherwise, no evidence of acute intra-abdominal or intrapelvic process. [facility] [place], [place], [facility] Incoming Radiant Results From [facility] - 02/21/2020 10:07 AM EDT EXAMINATION: CT OF THE ABDOMEN AND PELVIS WITH CONTRAST 02/21/2020 9:48 am TECHNIQUE: CT of the abdomen and pelvis was performed with the administration of intravenous contrast. Multiplanar reformatted images are provided for review. Dose modulation, iterative reconstruction, and/or weight based adjustment of the mA/kV was utilized to reduce the radiation dose to as low as reasonably achievable. COMPARISON: 10/28/2016 HISTORY: ORDERING SYSTEM PROVIDED HISTORY: diffuse, history of hernia surgeries TECHNOLOGIST PROVIDED HISTORY: diffuse, history of hernia surgeries Abdominal pain FINDINGS: Lower Chest: Visualized portion of the lower chest demonstrates no acute abnormality. There is stable 3 mm benign-appearing subpleural nodule in the right lower lobe seen on series 2, image 23. Organs: Liver enhances normally without evidence of intrahepatic biliary ductal dilatation. The spleen, pancreas and adrenal glands are unremarkable. The kidneys enhance symmetrically without evidence of hydronephrosis. The gallbladder is unremarkable. GI/Bowel: There is no evidence of bowel obstruction or free intraperitoneal air. Mild diffuse wall thickening is seen involving the transverse, descending and sigmoid colon. However, the colon is not well distended and no obvious pericolic stranding is seen. This may be simply related to under distention but the possibility of colitis cannot be completely excluded. There are multiple diverticula. No abscess is seen. Pelvis: There is no evidence of pelvic mass, lymphadenopathy or free fluid. Peritoneum/Retroperitoneu m: No evidence of retroperitoneal lymphadenopathy. No intraperitoneal adenopathy is seen. Bones/Soft Tissues: No acute abnormality of the visualized osseous structures. Postsurgical changes are seen in the anterior abdominal wall from prior hernia repair. IMPRESSION: 1. Mild diffuse colonic wall thickening extending from the proximal transverse colon to the sigmoid colon. This is nonspecific and might be artifact related to under distension. If clinically indicated, follow-up endoscopy could be done to evaluate for colitis. 2. Diverticulosis. 3. Otherwise, no evidence of acute intra-abdominal or intrapelvic process. [facility], [place] EXAMINATION: CT OF T HE ABDOMEN AND PELVIS WITH CONTRAST 02/21/2020 9:48 am TECHNIQUE: CT of the abdomen and pelvis was performed with the administration of intravenous contrast. Multiplanar reformatted images are provided for review. Dose modulation, iterative reconstruction, and/or weight based adjustment of the mA/kV was utilized to reduce the radiation dose to as low as reasonably achievable. COMPARISON: 10/28/2016 HISTORY: ORDERING SYSTEM PROVIDED HISTORY: diffuse, history of hernia surgeries TECHNOLOGIST PROVIDED HISTORY: diffuse, history of hernia surgeries Abdominal pain FINDINGS: Lower Chest: Visualized portion of the lower chest demonstrates no acute abnormality. There is stable 3 mm benign-appearing subpleural nodule in the right lower lobe seen on series 2, image 23. Organs: Liver enhances normally without evidence of intrahepatic biliary ductal dilatation. The spleen, pancreas and adrenal glands are unremarkable. The kidneys enhance symmetrically without evidence of hydronephrosis. The gallbladder is unremarkable. GI/Bowel: There is no evidence of bowel obstruction or free intraperitoneal air. Mild diffuse wall thickening is seen involving the transverse, descending and sigmoid colon. However, the colon is not well distended and no obvious pericolic stranding is seen. This may be simply related to under distention but the possibility of colitis cannot be completely excluded. There are multiple diverticula. No abscess is seen. Pelvis: There is no evidence of pelvic mass, lymphadenopathy or free fluid. Peritoneum/Retroperitoneu m: No evidence of retroperitoneal lymphadenopathy. No intraperitoneal adenopathy is seen. Bones/Soft Tissues: No acute abnormality of the visualized osseous structures. Postsurgical changes are seen in the anterior abdominal wall from prior hernia repair. [facility] [place], [place] Comp Metabolic Pr/rfx MGon 0 02-21-2020 (cont.) Normal [facility] Comment on above: Result Comment: Aver age GFR for 30-39 years old: 107 mL/min/1.73sq m Chronic Kidney Disease: <60 mL/min/1.73sq m Kidney failure: <15 mL/min/1.73sq m eGFR calculated using average adult body mass. Additional eGFR calculator available at: http://www.[employer]/multiple_crcl_2012.htm Performed By: #### C DP, CMPX #### [facility] [address] [place] [address] Tubing Tester: Alfredo Best MD Albumin [Mass/Vol] 4.7 g/dL Normal 3.5-5.2 [facility] Comment on above: Performed By: #### C DP, CMPX #### [facility] [address] [place] [address] Tubing Tester: Alfredo Best MD Albumin/Glob Ratio 1.5 Normal 1.0-2.5 [facility] Comment on above: Performed By: #### C DP, CMPX #### [facility] [address] [place], [place] [address]83 Tubing Tester: Alfredo Best MD Alkaline Phos 81 U/L Normal 35-104 [facility] Comment on above: Performed By: #### C DP, CMPX #### [facility] [address] [place], [place] [phone] Tubing Tester: Alfredo Best MD ALT [Catalytic activity/Vol] 16 U/L Normal 5-33 [facility] Comment on above: Performed By: #### C DP, CMPX #### [facility] [address] [place], [place] [address]83 Tubing Tester: Alfredo Best MD Anion gap [Moles/Vol] 14 mmol/L Normal 9-17 [facility] Comment on above: Performed By: #### C DP, CMPX #### [facility] [address] [place], [place] [phone] Tubing Tester: Alfredo Best MD AST [Catalytic activity/Vol] 15 U/L Normal <32 [facility] Comment on above: Performed By: #### C DP, CMPX #### [facility] [address] [place], [place] 96[address]483 Tubing Tester: Alfredo Best MD Bilirubin [Mass/Vol] 0.41 mg/dL Normal 0.3-1.2 [facility] Comment on above: Performed By: #### C DP, CMPX #### [facility] [address] [place], [place] [address]28683 Tubing Tester: Alfredo Best MD BUN/CRE Ratio 16 Normal 9-20 [facility] Comment on above: Performed By: #### C DP, CMPX #### [facility] [address] [place], [place] [address]609883 Tubing Tester: Alfredo Best MD Calcium [Mass/Vol] 9.7 mg/dL Normal 8.6-10.4 [facility] Comment on above: Performed By: #### C DP, CMPX #### [facility] [address] [place], [place] [phone] Tubing Tester: Alfredo Best MD Chloride [Moles/Vol] 102 mmol/L Normal 98-107 [facility] Comment on above: Performed By: #### C DP, CMPX #### [facility] [address] [place], [place] [address] Tubing Tester: Alfredo Best MD CO2 [Moles/Vol] 19 mmol/L Low 20-31 [facility] Comment on above: Performed By: #### C DP, CMPX #### [facility] [address] [place], [place] [phone] Tubing Tester: Alfredo Best MD Creatinine [Mass/Vol] 0.67 mg/dL Normal 0.50-0.90 [facility] Comment on above: Performed By: #### C DP, CMPX #### [facility] [address] [place], [place] [address]83 Tubing Tester: Alfredo Best MD GFR, Amer >60 Normal >60 [facility] Comment on above: Performed By: #### C DP, CMPX #### [facility] [address] [place], [place] [address]83 Tubing Tester: Alfredo Best MD GFR,non Amer >60 Normal >60 [facility] Comment on above: Performed By: #### C DP, CMPX #### [facility] [address] [place] [address] Tubing Tester: Alfredo Best MD Glucose [Mass/Vol] 172 mg/dL High 70-99 [facility] Comment on above: Performed By: #### C DP, CMPX #### [facility] [address] [place] [address] [place], [place] 107[address]83 Tubing Tester: Alfredo Best MD Potassium [Moles/Vol] 3.8 mmol/L Normal 3.7-5.3 [facility] Comment on above: Performed By: #### C DP, CMPX #### [facility] [address] [place], [place] [phone] Tubing Tester: Alfredo Best MD Protein [Mass/Vol] 7.9 g/dL Normal 6.4-8.3 [facility] Comment on above: Performed By: #### C DP, CMPX #### [address] [place] [address]83 Tubing Tester: Alfredo Best MD Sodium [Moles/Vol] 135 mmol/L Normal 135-144 [facility] Comment on above: Performed By: #### C DP, CMPX #### [address] [place], [place] [address]183 Tubing Tester: Alfredo Best MD Staging: Normal [facility] Comment on above: Result Comment: Stag e 1: Some kidney damage normal GFR Stage 2: Mild kidney damage GFR 60-89 Stage 3: Moderate kidney damage GFR 30-59 Stage 4: Severe kidney damage GFR 15-29 Stage 5: Severe kidney damage GFR <15 ESRD - chronic treatment by dialysis or transplant Performed By: #### C DP, CMPX #### [address] [place], [place] [address] Tubing Tester: Alfredo Best MD Urea nitrogen [Mass/Vol] 11 mg/dL Normal 6-20 [facility] Comment on above: Performed By: #### C DP, CMPX #### [facility] [address] [place] [address] Tubing Tester: Alfredo Best MD Comprehensive Metabolic Pane l w/ Reflex to MGon 02-21-2020 Albumin [Mass/Vol] 4.7 g/dL 3.5 - 5.2 g/dL [place] Albumin/Globulin [Mass ratio] 1.5 {ratio} [place] ALP [Catalytic activity/Vol] 81 U/L 35 - 104 U/L [place] ALT [Catalytic activity/Vol] 16 U/L 5 - 33 U/L [place] Anion gap [Moles/Vol] 14 mmol/L 9 - 17 mmol/L [place] AST [Catalytic activity/Vol] 15 U/L <32 [place] Bilirubin Ql (U) 0.41 mg/dL 0.3 - 1.2 mg/dL [place] Bun/Cre Ratio 16 [place] Calcium [Mass/Vol] 9.7 mg/dL 8.6 - 10. 4 mg/dL [place] Chloride [Moles/Vol] 102 mmol/L 98 - 10 7 mmol/L [place] CO2 [Moles/Vol] 19 mmol/L Low 20 - 31 mmol/L [place] Creatinine [Mass/Vol] 0.67 mg/dL 0.5 - 0.9 mg/dL [place] GFR >60 >60 mL/min [place] GFR Non- >60 >60 mL/min [place] Glucose [Mass/Vol] 172 mg/dL High 70 - 99 mg/dL [place] Interpretation and review of laboratory results Abnormal [place] Potassium [Moles/Vol] 3.8 mmol/L 3.7 - 5.3 mmol/L [place] Protein [Mass/Vol] 7.9 g/dL 6.4 - 8.3 g/dL [place] Sodium [Moles/Vol] 135 mmol/L 135 - 144 mmol/L [place] Urea nitrogen [Mass/Vol] 11 mg/dL 6 - 20 mg/dL [place] Lactic Acidon 02-21-2020 Lactate [Moles/Vol] 0.9 mmol/L Normal 0.5-2.2 [facility] Comment on above: Performed By: #### L ACTIC #### [facility] [address] [place], [place] [address] Tubing Tester: Alfredo Best MD Lactic Acid,Whole Bl NOT REPORTED Normal 0.7-2.1 [facility] Comment on above: Performed By: #### L ACTIC #### [facility] [address] [place], [place] [address]83 Tubing Tester: Alfredo Best MD Lactic acid, plasmaon 2019 Lactate [Moles/Vol] 0.9 mmol/L 0.5 - 2. 2 mmol/L [place] Lactic Acid, Whole Blood NOT REPORTED 0.7 - 2.1 mmol/L [place] Lipaseon 02-21-2020 Lipase [Catalytic activity/Vol] 20 U/L Normal 13-60 [facility] Comment on above: Performed By: #### C DP, CMPX #### [facility] [address] [place] [address] Tubing Tester: Alfredo Best MD Lipase [Catalytic activity/Vol] 20 U/L 13 - 60 U/L [place] Metabolic Panelon 02-21-2020 GFR/1.73 sq M predicted among non-blacks MDRD (S/P/Bld) [Vol rate/Area] [place] Comment on above: Average GFR for 30-3 9 years old: 107 mL/min/1.73sq m Chronic Kidney Disease: <60 mL/min/1.73sq m Kidney failure: <15 mL/min/1.73sq m eGFR calculated using average adult body mass. Additional eGFR calculator available at: http://www.[employer]/multiple_crcl_2012.htm Stage 1: Some kidney damage normal GFR Stage 2: Mild kidney damage GFR 60-89 Stage 3: Moderate kidney damage GFR 30-59 Stage 4: Severe kidney damage GFR 15-29 Stage 5: Severe kidney damage GFR <15 ESRD - chronic treatment by dialysis or transplant Microscopic Urinalysison Amorphous, UA NOT REPORTED None [place], [place] Bacteria, UA TRACE Abnormal None [place] Casts UA NOT REPORTED /LPF [place] Crystals, UA NOT REPORTED None /HPF [facility] [place], [place] Epithelial Cells UA 0 TO 2 [place], [place] Interpretation and review of laboratory results Abnormal [place] Mucus, UA NOT REPORTED None [place] Other Observations UA NOT REPORTED NOT REQ. [place] RBC (U) [#/Vol] 0 TO 2 [facility] [place] Renal Epithelial, UA NOT REPORTED 0 /HPF Me [place], [place] Trichomonas, UA NOT REPORTED None [facility] [place] WBC, UA 0 TO 2 [place] Yeast, UA NOT REPORTED None [facility], [place] Urinalysis, Routineon 2019 Acetoacetic Acid,Ur TRACE Abnormal NEG [facility] Comment on above: Performed By: #### U MICAO, UA #### [facility] [address] [place] [address] Tubing Tester: Alfredo Best MD Bilirubin, SemiQt,Ur SMALL Abnormal NEG [facility] Comment on above: Performed By: #### U MICAO, UA #### [facility] [address] [place] [address] Tubing Tester: Alfredo Best MD Color (U) YELLOW Normal YEL [facility] Comment on above: Performed By: #### U MICAO, UA #### [facility] [address] [place], [facility] Tubing Tester: Alfredo Best MD Glucose Ql (U) Negative Normal NEG [facility] Comment on above: Performed By: #### U MICAO, UA #### [facility] [address] [place] [address] Tubing Tester: Alfredo Best MD Hemoglobin, Ur TRACE Abnormal NEG [facility] Comment on above: Performed By: #### U MICAO, UA #### [facility] [address] [place], [place] [id number] Tubing Tester: Alfredo Best MD Leukocyte esterase Test strip Ql (U) Negative Normal NEG [facility] Comment on above: Performed By: #### U MICAO, UA #### [facility] [address] [place], [place] [id number] Tubing Tester: Alfredo Best MD Nitrite,Ur Negative Normal NEG [facility] Comment on above: Performed By: #### U MICAO, UA #### [facility] [address] [place], [place] [id number] Tubing Tester: Alfredo Best MD PH,Ur 6.0 Normal 5.0-9.0 [facility] Comment on above: Performed By: #### U MICAO, UA #### [facility] [address] [place], [place] [id number] Tubing Tester: Alfredo Best MD Protein Ql (U) Negative Normal NEG [facility] Comment on above: Performed By: #### U MICAO, UA #### [facility] [address] [place], [place] [id number] Tubing Tester: Alfredo Best MD Spec. [place],Ur 1.015 Normal 1.010-1.02 0 [facility] Comment on above: Performed By: #### U MICAO, UA #### [facility] [address] [place], [place] [id number] Tubing Tester: Alfredo Best MD Turbidity CLEAR Normal CLEAR [facility] Comment on above: Performed By: #### U MICAO, UA #### [facility] [address] [place], [place] [id number] Tubing Tester: Alfredo Best MD Urobilinogen,Ur Normal Normal NORM [facility] Comment on above: Performed By: #### U MICAO, UA #### [facility] [address] [place], [place] [id number] Tubing Tester: Alfredo Best MD Comment NOT REPORTED Normal [facility] Comment on above: Performed By: #### U MICAO, UA #### [facility] [address] [place] [address] Tubing Tester: Alfredo Best MD Urinalysis, reflex to micros copicon 02-21-2020 Bilirubin Urine SMALL Abnormal NEGATIVE [facility] [place] Color, UA YELLOW YELLOW [facility], [place] Glucose, Ur Negative NEGATIVE [facility], [place] Interpretation and review of laboratory results Abnormal [facility], [place] Ketones Ql (U) TRACE Abnormal NEGATIVE [facility] Leukocyte esterase Test strip Ql (U) Negative NEGATIVE [facility], [place] Nitrite, Urine Negative NEGATIVE [facility], [place] pH, UA 6.0 [place] Protein (U) [Mass/Vol] Negative NEGATIVE Me [facility], [place] Specific [place], UA 1.015 [facility], [place] Turbidity UA CLEAR CLEAR [facility], [place] Urinalysis Comments NOT REPORTED [facility] [place] Urine Hgb TRACE Abnormal NEGATIVE [facility], [place] Urobilinogen, Urine Normal Normal [facility], [place] Urinalysis,Microon 0 ----- Normal [facility] Comment on above: Performed By: #### U MICAO, UA #### [facility] [address] [place] [address] Tubing Tester: Alfredo Best MD Bacteria TRACE Abnormal NONE [facility] Comment on above: Performed By: #### U MICAO, UA #### [facility] [address] [place] [address] Tubing Tester: Alfredo Best MD Epithelial cells LM Ql (Urine sed) 0 TO 2 Normal 0-25 [facility] Comment on above: Performed By: #### U MICAO, UA #### [facility] [address] [place] [address] Tubing Tester: Alfredo Best MD Urine RBC's 0 TO 2 Normal 0-2 [facility] Comment on above: Performed By: #### U NADEGEO, UA #### [facility] [address] [place], [place] [id number] Tubing Tester: Alfredo Best MD Urine WBC's 0 TO 2 Normal 0-5 [facility] Comment on above: Performed By: #### U NADEGEO, UA #### [facility] [address] [place], [place] [id number] Tubing Tester: Alfredo Best MD Amorphous sediment LM Ql (Urine sed) NOT REPORTED Normal [facility] Comment on above: Performed By: #### U MICAO, UA #### [facility] [address] [place], [place] [id number] Tubing Tester: Alfredo Best MD Casts NOT REPORTED Normal [facility] Comment on above: Performed By: #### U NADEGEO, UA #### [facility] [address] [place], [place] [id number] Tubing Tester: Alfredo Best MD Crystals LM Nom (Urine sed) NOT REPORTED Normal [facility] Comment on above: Performed By: #### U NADEGEO, UA #### [facility] [address] [place], [place] [id number] Tubing Tester: Alfredo Best MD Epithelial, Renal NOT REPORTED Normal 0 [facility] Comment on above: Performed By: #### U MICAO, UA #### [facility] [address] [place], [place] [id number] Tubing Tester: Alfredo Best MD Mucus Strands NOT REPORTED Normal [facility] Comment on above: Performed By: #### U MICAO, UA #### [facility] [address] [place] [address] Tubing Tester: Alfredo Best MD Other Observations NOT REPORTED Normal NREQ [facility] Comment on above: Performed By: #### U MICAO, UA #### [facility] [address] [place] [address] Tubing Tester: Alfredo Best MD Trichomonas NOT REPORTED Normal [facility] Comment on above: Performed By: #### U MICAO, UA #### [facility] [address] [place] [address] Tubing Tester: Alfredo Best MD Yeast NOT REPORTED Normal NONE [facility] Comment on above: Performed By: #### U MICAO, UA #### [facility] [address] [place] [address] Tubing Tester: Alfredo Best MD CBC Auto Differentialon Basophils (Bld) [#/Vol] 0.10 10*3/uL [place] Basophils/100 WBC (Bld) 1 % 0 - 2 % [place] Differential Type NOT REPORTED [place] Eosinophils (Bld) [#/Vol] 0.25 10*3/uL [place] Eosinophils/100 WBC (Bld) 3 % 1 - 4 % [place] Erythrocyte distribution width (RBC) [Ratio] 12.3 % 11.8 - 14.4 % [place] Hematocrit (Bld) [Volume fraction] 47.7 % High 36.3 - 47.1 % [place] Hemoglobin (Bld) [Mass/Vol] 15.8 g/dL High 11.9 - 15.1 g/dL [place] Immature granulocytes (Bld) [#/Vol] 1 % High 0 [place] Immature granulocytes (Bld) [#/Vol] 0.05 10*3/uL [place] Interpretation and review of laboratory results Abnormal [place] Lymphocytes (Bld) [#/Vol] 2.71 10*3/uL [place] Lymphocytes/100 WBC (Bld) 28 % 24 - 43 % [place] MCH (RBC) [Entitic mass] 31.2 pg 25.2 - 33.5 pg [place] MCHC (RBC) [Mass/Vol] 33.1 g/dL 28.4 - 34.8 g/dL [place] MCV (RBC) [Entitic vol] 94.1 fL 82.6 - 102.9 fL [place] Monocytes (Bld) [#/Vol] 0.60 10*3/uL [place] Monocytes/100 WBC (Bld) 6 % 3 - 12 % [place] Platelet mean volume (Bld) [Entitic vol] 10.0 fL 8.1 - 13.5 fL [place] Platelets (Bld) [#/Vol] 359 10*3/uL [place] Platelets (Bld) [#/Vol] NOT REPORTED [place] RBC (Bld) [#/Vol] 5.07 10*6/uL 3.95 - 5.11 m/uL [place] RBC morphology finding Nom (Bld) NOT REPORTED [place] Segmented neutrophils/100 WBC (Bld) 61 % 36 - 65 % [place] Segs Absolute 6.16 [place] WBC (Bld) [#/Vol] 0.0 10*3/uL 0.0 per 100 WBC [place] WBC (Bld) [#/Vol] 9.9 10*3/uL [place] WBC Morphology NOT REPORTED [place] Comprehensive Metabolic Pane goyo 08-05-2019 Albumin [Mass/Vol] 4.4 g/dL 3.5 - 5.2 g/dL [place] Albumin/Globulin [Mass ratio] 1.4 {ratio} [place] ALP [Catalytic activity/Vol] 70 U/L 35 - 104 U/L [place] ALT [Catalytic activity/Vol] 10 U/L 5 - 33 U/L [place] Anion gap [Moles/Vol] 12 mmol/L 9 - 17 mmol/L [place] AST [Catalytic activity/Vol] 9 U/L <32 [place] Bilirubin Ql (U) 0.27 mg/dL Low 0.3 - 1.2 mg/dL [place] Bun/Cre Ratio 16 [place] Calcium [Mass/Vol] 9.1 mg/dL 8.6 - 10. 4 mg/dL [place] Chloride [Moles/Vol] 101 mmol/L 98 - 10 7 mmol/L [place] CO2 [Moles/Vol] 23 mmol/L 20 - 31 mmol/L [place] Creatinine [Mass/Vol] 0.56 mg/dL 0.5 - 0.9 mg/dL [place] GFR >60 >60 mL/min [place] GFR Non- >60 >60 mL/min [place] Glucose [Mass/Vol] 133 mg/dL High 70 - 99 mg/dL [place] Interpretation and review of laboratory results Abnormal [place] Potassium [Moles/Vol] 4.4 mmol/L 3.7 - 5.3 mmol/L [place] Protein [Mass/Vol] 7.5 g/dL 6.4 - 8.3 g/dL [place] Sodium [Moles/Vol] 136 mmol/L 135 - 144 mmol/L [place] Urea nitrogen [Mass/Vol] 9 mg/dL 6 - 20 mg/dL [place] Metabolic Panelon 08-05-2019 GFR/1.73 sq M predicted among non-blacks MDRD (S/P/Bld) [Vol rate/Area] [place] Comment on above: Average GFR for 30-3 9 years old: 107 mL/min/1.73sq m Chronic Kidney Disease: <60 mL/min/1.73sq m Kidney failure: <15 mL/min/1.73sq m eGFR calculated using average adult body mass. Additional eGFR calculator available at: http://www.[employer]/multiple_crcl_2012.htm Stage 1: Some kidney damage normal GFR Stage 2: Mild kidney damage GFR 60-89 Stage 3: Moderate kidney damage GFR 30-59 Stage 4: Severe kidney damage GFR 15-29 Stage 5: Severe kidney damage GFR <15 ESRD - chronic treatment by dialysis or transplant T4on 08-05-2019 T4, Total 7 ug/dL 4.5 - 12 ug/dL [place] TSH without Reflexon 020 TSH Qn 1.85 m[IU]/L [place] Vital Signs Date Time Vital Sign Value Performing Clinician Facility 10-06-2024 09:07-0400 Body height 157.5 cm Waldo Sow DO Work Phone: [facility] 10-06-2024 09:07-0400 Body mass index (BMI) [Ratio] 48.4 kg/m2 Waldo Sow DO Work Phone: [facility] 10-06-2024 09:07-0400 Body weight 120.02 kg Waldo Sow DO Work Phone: [facility] 10-06-2024 09:07-0400 Diastolic blood pressure 76 mm[Hg] Waldo Sow DO Work Phone: [facility] 10-06-2024 09:07-0400 Heart rate 96 /min Waldo Sow DO Work Phone: [facility] 10-06-2024 09:07-0400 Systolic blood pressure 124 mm[Hg] Waldo Sow DO Work Phone: [facility] 09-09-2024 13:55-0400 Body temperature 97.7 [degF] Alden Lin [employer] Work Phone: [facility] 09-09-2024 13:55-0400 Diastolic blood pressure 82 mm[Hg] Alden Lin [employer] Work Phone: [facility] 09-09-2024 13:55-0400 Heart rate 78 /min Alden Lin [employer] Work Phone: [facility] 09-09-2024 13:55-0400 SaO2% (BldA) [Mass fraction] 98 % Alden Lin [employer] Work Phone: [facility] 09-09-2024 13:55-0400 Systolic blood pressure 118 mm[Hg] Alden Lin [employer] Work Phone: [facility] 09-09-2024 13:54-0400 Body mass index (BMI) [Ratio] 48.79 kg/m2 Alden Lin [employer] Work Phone: [facility] 09-09-2024 13:54-0400 Body weight 121 kg Alden Lin [employer] Work Phone: [facility] 07-14-2024 11:12-0500 Body height 157.5 cm Nigel Lawson MD Work Phone: [facility] 07-14-2024 11:12-0500 Body mass index (BMI) [Ratio] 48.83 kg/m2 Nigel Lawson MD Work Phone: [facility] 07-14-2024 11:12-0500 Body weight 121.11 kg Nigel Lawson MD Work Phone: [facility] 07-14-2024 11:12-0500 Diastolic blood pressure 80 mm[Hg] Nigel Lawson MD Work Phone: [facility] 07-14-2024 11:12-0500 Heart rate 88 /min Nigel Lawson MD Work Phone: [facility] 07-14-2024 11:12-0500 Respiratory rate 18 /min Nigel Lawson MD Work Phone: [facility] 07-14-2024 11:12-0500 SaO2% (BldA) [Mass fraction] 97 % Nigel Lawson MD Work Phone: [facility] 07-14-2024 11:12-0500 Systolic blood pressure 120 mm[Hg] Nigel Lawson MD Work Phone: [facility] 06-04-2024 17:12-0500 Diastolic blood pressure 101 mm[Hg] Bill Dan DO Work Phone: [facility] 06-04-2024 17:12-0500 Heart rate 86 /min Bill Dan DO Work Phone: [facility] 06-04-2024 17:12-0500 Respiratory rate 26 /min Bill Dan DO Work Phone: [facility] 06-04-2024 17:12-0500 SaO2% (BldA) [Mass fraction] 98 % Bill Dan DO Work Phone: [facility] 06-04-2024 17:12-0500 Systolic blood pressure 167 mm[Hg] Bill Dan DO Work Phone: [facility] 06-04-2024 14:30-0500 Body height 154.94 cm Bill Dan DO Work Phone: [facility] 06-04-2024 14:30-0500 Body temperature 97.8 [degF] Bill Colemanley DO Work Phone: [facility] 06-04-2024 14:30-0500 Body weight 124.2 kg Bill Colemanley DO Work Phone: [facility] 03-31-2024 13:49-0400 Body height 160.02 cm DO Bill Dan Work Phone: [facility] 03-31-2024 13:49-0400 Body mass index (BMI) [Ratio] 46.2 kg/m2 DO Bill Colemanley Work Phone: [facility] 03-31-2024 13:49-0400 Body weight 118.38 kg DO Bill Dan Work Phone: [facility] 03-31-2024 13:49-0400 Diastolic blood pressure 72 mm[Hg] DO Bill Dan Work Phone: [facility] 03-31-2024 13:49-0400 Heart rate 82 /min DO Bill Dan Work Phone: [facility] 03-31-2024 13:49-0400 SaO2% (BldA) [Mass fraction] 96 % DO Bill Dan Work Phone: [facility] 03-31-2024 13:49-0400 Systolic blood pressure 117 mm[Hg] DO Bill Dan Work Phone: [facility] 01-31-2024 09:00-0400 Diastolic blood pressure 91 mm[Hg] DO Bill Dan Work Phone: [facility] 01-31-2024 09:00-0400 Heart rate 67 /min DO Bill Dan Work Phone: [facility] 01-31-2024 09:00-0400 Respiratory rate 20 /min DO Bill Dan Work Phone: [facility] 01-31-2024 09:00-0400 SaO2% (BldA) [Mass fraction] 98 % DO Bill Dan Work Phone: [facility] 01-31-2024 09:00-0400 Systolic blood pressure 129 mm[Hg] DO Bill Dan Work Phone: [facility] 01-31-2024 08:00-0400 Body temperature 98.5 [degF] DO Bill Dan Work Phone: [facility] 01-31-2024 08:00-0400 Inhaled oxygen flow rate 8 L/min DO Bill Dan Work Phone: [facility] 01-31-2024 06:39-0400 Body height 157.48 cm DO Bill Dan Work Phone: [facility] 01-31-2024 06:39-0400 Body weight 113.39 kg DO Bill Dan Work Phone: [facility] 10-01-2023 16:05-0400 Body height 157.5 cm Sveta MERRITT Work Phone: [facility] 10-01-2023 16:05-0400 Body mass index (BMI) [Ratio] 45.54 kg/m2 Sveta Garnica [employer]AM [employer]CAREER REPRESENTATIVE Work Phone: [facility] 10-01-2023 16:05-0400 Body weight 112.95 kg Sveta Garnica CLAM PICKER[employer]CAREER REPRESENTATIVE Work Phone: [facility] 10-01-2023 16:05-0400 Diastolic blood pressure 80 mm[Hg] Sveta Garnica CLAM PICKER[employer]CAREER REPRESENTATIVE Work Phone: [facility] 10-01-2023 16:05-0400 Heart rate 73 /min Sveta Garnica CLAM PICKER[employer]CAREER REPRESENTATIVE Work Phone: [facility] 10-01-2023 16:05-0400 Systolic blood pressure 108 mm[Hg] Sveta Garnica CLAM PICKER-CAREER REPRESENTATIVE Work Phone: [facility] 08-07-2023 12:20-0500 Diastolic blood pressure 70 mm[Hg] [facility] 08-07-2023 12:20-0500 Heart rate 75 /min [facility] 08-07-2023 12:20-0500 Respiratory rate 16 /min [facility] 08-07-2023 12:20-0500 SaO2% (BldA) [Mass fraction] 98 % [facility] 08-07-2023 12:20-0500 Systolic blood pressure 128 mm[Hg] [facility] 08-07-2023 09:14-0500 Body height 152.4 cm [facility] 08-07-2023 09:14-0500 Body temperature 97.5 [degF] [facility] 08-07-2023 09:14-0500 Body weight 112.9 kg [facility] 07-09-2023 08:15-0500 Body weight 113.4 kg Mely Steinberg MD Work Phone: [facility] 07-09-2023 08:15-0500 Diastolic blood pressure 82 mm[Hg] Mely Steinberg MD Work Phone: [facility] 07-09-2023 08:15-0500 Systolic blood pressure 132 mm[Hg] Mely Steinberg MD Work Phone: [facility] 06-24-2023 12:17-0500 Diastolic blood pressure 79 mm[Hg] DO Bill Dan Work Phone: [facility] 06-24-2023 12:17-0500 Heart rate 68 /min DO Bill Dan Work Phone: [facility] 06-24-2023 12:17-0500 Respiratory rate 16 /min DO Bill Dan Work Phone: [facility] 06-24-2023 12:17-0500 SaO2% (BldA) [Mass fraction] 97 % DO Bill Dan Work Phone: [facility] 06-24-2023 12:17-0500 Systolic blood pressure 127 mm[Hg] DO Bill Dan Work Phone: [facility] 06-24-2023 11:47-0500 Inhaled oxygen flow rate 4 L/min DO Bill Dan Work Phone: [facility] 06-24-2023 10:17-0500 Body height 157.48 cm DO Bill Dan Work Phone: [facility] 06-24-2023 10:17-0500 Body temperature 98.5 [degF] DO Bill Dan Work Phone: [facility] 06-24-2023 10:17-0500 Body weight 116.11 kg DO Bill Dan Work Phone: [facility] 06-05-2023 09:15-0500 Body height 160.02 cm Bill Dan Other [employer] Other 06-05-2023 09:15-0500 Body mass index (BMI) [Ratio] 44.99 kg/m2 Bill Dan Other [employer] Other 06-05-2023 09:15-0500 Body temperature 97.4 [degF] Bill Dan Other [employer] Other 06-05-2023 09:15-0500 Body weight 115.21 kg Bill Colemanley Other [employer] Other 06-05-2023 09:15-0500 Diastolic blood pressure 76 mm[Hg] Bill Dan Other [employer] Other 06-05-2023 09:15-0500 Respiratory rate 18 /min Bill Dan Other [employer] Other 06-05-2023 09:15-0500 SaO2% (BldA) [Mass fraction] 97 % Bill Dan Other [employer] Other 06-05-2023 09:15-0500 Systolic blood pressure 124 mm[Hg] Bill Dan Other [employer] Other 04-29-2023 12:52-0500 Body height 154.94 cm DO Bill Dan Work Phone: [facility] 04-29-2023 12:52-0500 Body temperature 98.3 [degF] DO Bill Dan Work Phone: [facility] 04-29-2023 12:52-0500 Body weight 115.65 kg DO Bill Dan Work Phone: [facility] 04-29-2023 12:52-0500 Diastolic blood pressure 88 mm[Hg] DO Bill Dan Work Phone: [facility] 04-29-2023 12:52-0500 Heart rate 86 /min DO Bill Dan Work Phone: [facility] 04-29-2023 12:52-0500 Respiratory rate 20 /min DO Bill Dan Work Phone: [facility] 04-29-2023 12:52-0500 SaO2% (BldA) [Mass fraction] 98 % DO Bill Dan Work Phone: [facility] 04-29-2023 12:52-0500 Systolic blood pressure 148 mm[Hg] DO Bill Dan Work Phone: [facility] 10-02-2022 14:30-0400 Body height 160.02 cm Bill Colemanley Other [employer] Other 10-02-2022 14:30-0400 Body mass index (BMI) [Ratio] 43.93 kg/m2 Bill Dan Other [employer] Other 10-02-2022 14:30-0400 Body weight 112.49 kg Bill Dan Other [employer] Other 10-02-2022 14:30-0400 Diastolic blood pressure 86 mm[Hg] Bill Dan Other [employer] Other 10-02-2022 14:30-0400 Respiratory rate 18 /min Bill Dan Other [employer] Other 10-02-2022 14:30-0400 SaO2% (BldA) [Mass fraction] 98 % Bill Dan Other [employer] Other 10-02-2022 14:30-0400 Systolic blood pressure 132 mm[Hg] Bill Dan Other [employer] Other 04-04-2022 17:55-0400 Diastolic blood pressure 87 mm[Hg] DO Jose Lan Work Phone: [facility] 04-04-2022 17:55-0400 Heart rate 66 /min DO Jose Lan Work Phone: [facility] 04-04-2022 17:55-0400 Respiratory rate 18 /min DO Jose Lan Work Phone: [facility] 04-04-2022 17:55-0400 SaO2% (BldA) [Mass fraction] 96 % DO Jose Lan Work Phone: [facility] 04-04-2022 17:55-0400 Systolic blood pressure 136 mm[Hg] DO Jose Lan Work Phone: [facility] 04-04-2022 16:25-0400 Body height 157.48 cm DO Jose Lan Work Phone: [facility] 04-04-2022 16:25-0400 Body temperature 98.3 [degF] DO Jose Lan Work Phone: [facility] 04-04-2022 16:25-0400 Body weight 105.23 kg DO Jose Lan Work Phone: [facility] 03-27-2022 15:51-0400 Body height 160.02 cm DO Jose Lan Work Phone: [facility] 03-27-2022 15:51-0400 Body temperature 98.1 [degF] DO Jose Lan Work Phone: [facility] 03-27-2022 15:51-0400 Body weight 104.6 kg DO Jose Lan Work Phone: [facility] 03-27-2022 15:51-0400 Diastolic blood pressure 85 mm[Hg] DO Jose Lan Work Phone: [facility] 03-27-2022 15:51-0400 Heart rate 73 /min DO Jose Lan Work Phone: [facility] 03-27-2022 15:51-0400 Respiratory rate 18 /min DO Jose Lan Work Phone: [facility] 03-27-2022 15:51-0400 SaO2% (BldA) [Mass fraction] 97 % DO Jose Lan Work Phone: [facility] 03-27-2022 15:51-0400 Systolic blood pressure 140 mm[Hg] DO Jose Lan Work Phone: [facility] 01-31-2022 10:50-0400 Body height 157.48 cm Bill Dan Work Phone: [facility] [employer] 250 DO Work Phone: 01-31-2022 10:50-0400 Body mass index (BMI) [Ratio] 43.71 kg/m2 Bill Dan Work Phone: [facility] 250 DO Work Phone: 01-31-2022 10:50-0400 Body surface area Derived from formula 2.06 m2 Bill Dan Work Phone: [facility] 250 DO Work Phone: 01-31-2022 10:50-0400 Body weight 108.41 kg Bill Dan Work Phone: [facility] 250 DO Work Phone: 01-31-2022 10:50-0400 Diastolic blood pressure 70 mm[Hg] Bill Dan Work Phone: [employer] [facility] DO Work Phone: 01-31-2022 10:50-0400 Heart rate 66 /min Bill Dan Work Phone: [facility] 250 DO Work Phone: 01-31-2022 10:50-0400 Systolic blood pressure 112 mm[Hg] Bill Dan Work Phone: [facility] 250 DO Work Phone: 01-24-2022 17:00-0400 Body height 160.02 cm Bill Dan Other [facility] [employer] Other 01-24-2022 17:00-0400 Body mass index (BMI) [Ratio] 42.86 kg/m2 Bill Dan Other [facility] [employer] Other 01-24-2022 17:00-0400 Body weight 109.77 kg Bill Dan Other [facility] [employer] Other 01-24-2022 17:00-0400 Diastolic blood pressure 77 mm[Hg] Bill Dan Other [facility] [employer] Other 01-24-2022 17:00-0400 Respiratory rate 18 /min Bill Dan Other [facility] [employer] Other 01-24-2022 17:00-0400 SaO2% (BldA) [Mass fraction] 98 % Bill Dan Other [facility] [employer] Other 01-24-2022 17:00-0400 Systolic blood pressure 118 mm[Hg] Bill Dan Other [facility] [employer] Other 01-22-2022 13:35-0400 Diastolic blood pressure 64 mm[Hg] DO Jose Lan Work Phone: [facility] 01-22-2022 13:35-0400 Heart rate 69 /min DO Jose Lan Work Phone: [facility] 01-22-2022 13:35-0400 SaO2% (BldA) [Mass fraction] 97 % DO Jose Lan Work Phone: [facility] 01-22-2022 13:35-0400 Systolic blood pressure 115 mm[Hg] DO Jose Lan Work Phone: [facility] 01-22-2022 12:10-0400 Body temperature 98 [degF] DO Jose Lan Work Phone: [facility] 01-22-2022 12:10-0400 Respiratory rate 16 /min DO Jose Lan Work Phone: [facility] 01-22-2022 05:56-0400 Body weight 106.8 kg DO Jose Lan Work Phone: [facility] 01-20-2022 04:19-0400 Body height 157.48 cm DO Jose Lan Work Phone: [facility] 01-20-2022 00:00-0400 65 1 Bill Dan Work Phone: [facility] 250 DO Work Phone: Comment on above: [id number] 07-13-2021 10:30-0500 Body height 160.02 cm Bill Dan Other [facility] [employer] Other 07-13-2021 10:30-0500 Body mass index (BMI) [Ratio] 46.8 kg/m2 Bill Dan Other [employer] Other 07-13-2021 10:30-0500 Body weight 119.84 kg Bill Dan Other [employer] Other 07-13-2021 10:30-0500 Diastolic blood pressure 84 mm[Hg] Bill Dan Other [employer] Other 07-13-2021 10:30-0500 Respiratory rate 18 /min Bill Colemanley Other [employer] Other 07-13-2021 10:30-0500 SaO2% (BldA) [Mass fraction] 95 % Bill Dan Other [employer] Other 07-13-2021 10:30-0500 Systolic blood pressure 125 mm[Hg] Bill Dan Other [employer] Other 01-23-2021 20:02-0400 Diastolic blood pressure 68 mm[Hg] Neelima Dutton [employer] Work Phone: [employer] Phone: 01-23-2021 20:02-0400 Heart rate 89 /min Neelima Dutton DO Work Phone: [employer] Phone: 01-23-2021 20:02-0400 Respiratory rate 17 /min Neelima Dutton [employer] Work Phone: [employer] Phone: 01-23-2021 20:02-0400 SaO2% (BldA) [Mass fraction] 97 % Neelima Dutton DO Work Phone: [employer] Phone: 01-23-2021 20:02-0400 Systolic blood pressure 141 mm[Hg] Neelima Dutton DO Work Phone: [employer] Phone: 01-23-2021 19:59-0400 Body temperature 98.71 [degF] Neelima Dutton DO Work Phone: [employer] Phone: 04-03-2020 22:45-0500 BP Diastolic 91 mm[Hg] Adela Swenson [employer], [place] 04-03-2020 22:45-0500 BP Systolic 133 mm[Hg] Adela Clemons [facility] [place] , [place] 04-03-2020 22:45-0500 Pulse (Heart Rate) 86 /min Adela Clemons [facility], [place] 04-03-2020 22:45-0500 Pulse Oximetry 95 % Adela Clemons [facility] [place] , [place] 04-03-2020 22:45-0500 Respiratory Rate 16 /min Adela Clemons [facility] [place] [facility] 04-03-2020 10:44-0500 BMI (Body Mass Index) 40.23 kg/m2 Adela Clemons [facility] [place], [place] 04-03-2020 10:44-0500 Body Temperature 97.3 [degF] Adela Clemons [facility] [place] 04-03-2020 10:44-0500 Body weight 93.44 kg Adela Clemons [facility] , [place] 04-03-2020 10:44-0500 Height 152.4 cm Adela Clemons [facility] , [place] 03-29-2020 16:55-0400 BMI (Body Mass Index) 41.01 kg/m2 [facility] [place] 03-29-2020 16:55-0400 Body Temperature 98.01 [degF] [facility] 03-29-2020 16:55-0400 Body weight 95.25 kg [facility] [place] , [place] 03-29-2020 16:55-0400 BP Diastolic 97 mm[Hg] [facility] , [place] 03-29-2020 16:55-0400 BP Systolic 130 mm[Hg] [facility] [place] 03-29-2020 16:55-0400 Pulse (Heart Rate) 94 /min [facility], [place] 03-29-2020 16:55-0400 Pulse Oximetry 97 % [facility] , [place] 03-29-2020 16:55-0400 Respiratory Rate 22 /min [facility] 02-23-2020 12:15-0400 BP Diastolic 75 mm[Hg] Tonie Arzola [facility] [place] , [place] 02-23-2020 12:15-0400 BP Systolic 143 mm[Hg] Tonie Arzola [facility] [place] 02-23-2020 10:40-0400 Pulse Oximetry 95 % Tonie Clemons [facility] , [place] 02-23-2020 07:41-0400 BMI (Body Mass Index) 41.99 kg/m2 Tonie Clemons [facility], [place] 02-23-2020 07:41-0400 Body Temperature 97.39 [degF] Tonie Clemons [facility], [place] 02-23-2020 07:41-0400 Body weight 97.52 kg Tonie Clemons [facility] , [place] 02-23-2020 07:41-0400 Pulse (Heart Rate) 89 /min Tonie Clemons [facility], [place] 02-23-2020 07:41-0400 Respiratory Rate 18 /min [facility] Clemons [email or web address] [place] 02-21-2020 10:15-0400 BP Diastolic 78 mm[Hg] Sarthak Agata [email or web address] [place] 02-21-2020 10:15-0400 BP Systolic 124 mm[Hg] Sarthak Agata Clemons [facility] , [place] 02-21-2020 10:15-0400 Pulse Oximetry 99 % Sarthak Clemons [facility] , [place] 02-21-2020 08:57-0400 BMI (Body Mass Index) 41.99 kg/m2 Sarthak Agata Clemons [facility], [place] 02-21-2020 08:57-0400 Body Temperature 98.2 [degF] Sarthak Agata [email or web address] [place] 02-21-2020 08:57-0400 Body weight 97.52 kg Sarthak Agata Clemons [place], [place] 02-21-2020 08:57-0400 Height 152.4 cm Sarthak JeannetteMercantila Kaci [facility] , [place] 02-21-2020 08:57-0400 Pulse (Heart Rate) 92 /min Sarthak Agata [email or web address] [place] 02-21-2020 08:57-0400 Respiratory Rate 18 /min Sarthak Agata [email or web address], [place] Encounters Encounter Date Encounter Type Care Provider Facility Start: 10-29-2024 ambulatory Bill Koehler y:[facility] Start: 10-06-2024 End: 10-06-2024 Office outpatient visit 25 minutes Waldo Sow DO Work Phone: [facility] Comment on above: ASHD (arteriosclerot ic heart disease); Type 2 diabetes mellitus with other specified complication, with long-term current use of insulin; Current every day smoker; BMI 45.0-49.9, adult (Multi); Localized edema; Syndrome X (cardiac) Start: 10-06-2024 End: 10-06-2024 ambulatory [facility] Ambulatory Start: 09-11-2024 End: 09-11-2024 Telephone encounter Nigel Lawson MD Work Phone: [facility] Comment on above: Med Refill Start: 09-09-2024 End: 09-09-2024 ambulatory ALDEN LIN Not Available Start: 09-09-2024 End: 09-09-2024 Office outpatient visit 25 minutes Alden Lin [employer] Work Phone: [facility] Comment on above: Bronchitis with asth ma, acute (CMS/HCC) (Primary Dx); Cough, unspecified type Start: 08-30-2024 End: 08-31-2024 Refill Nigel Lawson MD Work Phone: [facility] Comment on above: Type 2 diabetes jodee itus with hyperglycemia, with long-term current use of insulin (CMS/HCC) (Primary Dx) Start: 07-14-2024 End: 07-14-2024 Bamboo flowsheet Nigel Lawson MD Work Phone: [facility] Start: 07-14-2024 End: 07-14-2024 Bamboo flowsheet Nigel Lawson MD Work Phone: [facility] Start: 07-14-2024 End: 07-14-2024 Office outpatient visit 25 minutes Nigel Lawson MD Work Phone: [facility] Comment on above: Type 2 diabetes jodee itus with hyperglycemia, with long-term current use of insulin (CMS/HCC) (Primary Dx); Vitamin D deficiency; Primary hypertension (CMS/HCC); Hyperlipemia, mixed (CMS/HCC); Encounter for dietary consultation; Class 3 severe obesity due to excess calories with serious comorbidity and body mass index (BMI) of 45.0 to 49.9 in adult (CMS/HCC) Start: 07-14-2024 End: 07-14-2024 ambulatory NIGEL LAWSON Not Available Start: 06-04-2024 End: 06-04-2024 Emergency department patient visit Bill Dan DO Work Phone: [facility] Work Phone: Start: 04-28-2024 Registered Recurring Bill schaeffer DO Work Phone: [facility] Start: 04-25-2024 End: 04-26-2024 Refill Nigel Lawson MD Work Phone: [facility] Comment on above: Type 2 diabetes jodee itus with hyperglycemia, with long-term current use of insulin ([facility]) (Primary Dx) Start: 03-31-2024 End: 03-31-2024 ambulatory DO Bill Dan Work Phone: [facility] Work Phone: Start: 03-31-2024 End: 03-31-2024 Patient encounter procedure DO Bill Dan Work Phone: [facility] Work Phone: Start: 03-31-2024 End: 03-31-2024 Patient encounter procedure DO Bill Dan Work Phone: [facility] Start: 03-31-2024 End: 03-31-2024 ambulatory DO Bill Dan Work Phone: [facility] Work Phone: Start: 03-26-2024 End: 03-27-2024 Refill Nigel Lawson MD Work Phone: [facility] Comment on above: Type 2 diabetes jodee itus with hyperglycemia, with long-term current use of insulin ([facility]) (Primary Dx) Start: 03-25-2024 Registered Recurring DO Bill Dan Work Phone: [facility] Start: 02-19-2024 Non-patient / Non-visit DO Marshall kareen Dan Work Phone: [facility] [place] Work Phone: Start: 01-31-2024 End: 01-31-2024 External Result Encounter Mely Steinberg MD Work Phone: [facility] External Department Unsolicited Start: 01-31-2024 End: 01-31-2024 External Result Encounter Mely Steinberg MD Work Phone: [facility] External Department Unsolicited Start: 01-31-2024 End: 01-31-2024 Admission to same day surgery center DO Bill Dan Work Phone: [facility] [place] Start: 01-31-2024 End: 01-31-2024 ambulatory DO Bill Dan Work Phone: [facility] Work Phone: Start: 01-28-2024 Registered Recurring DO Bill Dan Work Phone: [facility] [employer] Start: 01-21-2024 End: 01-21-2024 External Result Encounter Mely Steinberg MD Work Phone: [facility] External Department Unsolicited Start: 01-21-2024 End: 01-21-2024 External Result Encounter Mely Steinberg MD Work Phone: [facility] External Department Unsolicited Start: 01-21-2024 End: 01-21-2024 Patient encounter procedure DO Bill Dan Work Phone: [facility]-Pre-Surgical Testing Work Phone: Start: 01-21-2024 End: 01-21-2024 ambulatory DO Bill Dan Work Phone: [facility] Work Phone: Start: 01-21-2024 Encounter for other preprocedural examination Mely Steinberg [facility] Start: 01-09-2024 Non-patient / Non-visit DO Marshall Dan Work Phone: [facility] [place] Work Phone: Start: 12-31-2023 Registered Recurring DO Bill Dan Work Phone: [facility]- [facility] Start: 10-18-2023 End: 10-18-2023 ambulatory NON STAFF [facility] Work Phone: Start: 10-18-2023 End: 10-18-2023 Patient encounter procedure [facility] [place] Work Phone: Start: 10-15-2023 [facility] Start: 10-15-2023 End: 10-15-2023 ambulatory MELY STEINBERG Not Available Start: 10-01-2023 End: 10-01-2023 Office outpatient visit 15 minutes Sveta Garnica [employer] PICKER-CAREER REPRESENTATIVE Work Phone: [facility] Comment on above: Syndrome X (cardiac) (CMS-HCC) (Primary Dx); Type 2 diabetes mellitus without complication, with long-term current use of insulin (Multi); Mild CAD; Mixed hyperlipidemia; Essential hypertension; Current every day smoker; BMI 45.0-49.9, adult (Multi); NSTEMI, initial episode of care (Multi); Pre-operative clearance Start: 10-01-2023 End: 10-01-2023 Preoperative state Sveta Garnica CLAM PICKER-CAREER REPRESENTATIVE Work Phone: [facility] Work Phone: Start: 08-07-2023 End: 08-07-2023 Emergency department patient visit [facility]-Emergency Room Work Phone: Start: 07-09-2023 End: 07-09-2023 Patient encounter status Mely Steinberg MD Work Phone: [facility] Start: 07-09-2023 End: 07-09-2023 Periodic preventive med est patient 18-39 yrs Mely Steinberg MD Work Phone: [facility] Comment on above: Screening for malign ant neoplasm of cervix; Encounter for gynecological examination without abnormal finding; Encounter for screening mammogram for malignant neoplasm of breast; Abnormal vaginal bleeding Start: 07-04-2023 End: 07-04-2023 ambulatory Bill Dan Other [employer] Other Start: 07-04-2023 Telephone encounter [facility] Start: 07-01-2023 End: 07-01-2023 ambulatory Kendrick Joya Other [employer] Other Start: 07-01-2023 Telephone encounter Kendrick [facility] Start: 06-24-2023 Non-patient / Non-visit DO Marshall Dan Work Phone: [facility] Work Phone: Start: 06-19-2023 End: 06-19-2023 ambulatory DO Bill Dan Work Phone: [facility] Work Phone: Start: 06-19-2023 End: 06-19-2023 Patient encounter procedure DO Bill Dan Work Phone: [facility]Ultrasound [facility] [place] Work Phone: Start: 06-11-2023 End: 06-11-2023 ambulatory Kendrick Joya Other [employer] Other Start: 06-11-2023 Telephone encounter Kendrick Garrett Hand Tile Maker Start: 06-05-2023 End: 06-05-2023 ambulatory Bill Dan Other [employer] Other Start: 06-05-2023 Office outpatient vi sit 25 minutes Bill Dan [facility] Start: 06-05-2023 End: 06-05-2023 Patient encounter procedure DO Bill Dan Work Phone: [facility] Work Phone: Start: 04-29-2023 End: 04-29-2023 Emergency department patient visit DO Bill Dan Work Phone: [facility]-Emergency Room Work Phone: Start: 03-25-2023 Registered Recurring DO Bill Dan Work Phone: [facility] Start: 02-05-2023 End: 02-05-2023 ambulatory Bill Dan Other [employer] Other Start: 02-05-2023 Telephone encounter [facility] Start: 10-02-2022 Office outpatient vi sit 25 minutes Bill Dan [facility] [place] Start: 10-02-2022 End: 10-02-2022 ambulatory DO Bill Dan Work Phone: [facility] Work Phone: Start: 10-02-2022 End: 10-02-2022 Patient encounter procedure DO Bill Dan Work Phone: [facility] Start: 04-30-2022 End: 04-30-2022 ambulatory Bill Dan Other [employer] Other Start: 04-30-2022 Telephone encounter [facility] Start: 04-10-2022 End: 04-10-2022 ambulatory Bill Dan Other [employer] Other Start: 04-10-2022 Telephone encounter [facility] Start: 04-04-2022 End: 04-04-2022 Emergency department patient visit DO Jose Lan Work Phone: [facility]-Emergency Room Start: 03-28-2022 End: 03-28-2022 ambulatory Bill Dan Other [facility] [employer] Other Start: 03-28-2022 Telephone encounter Bill BAHENA G [facility] Start: 03-27-2022 End: 03-27-2022 Emergency department patient visit DO Jose Lan Work Phone: [facility]-Emergency Room Start: 02-15-2022 Rx Renewal Bill reyes Work Phone: -[facility] 250 DO Work Phone: Start: 01-31-2022 Office outpatient vi sit 25 minutes Bill Dan Work Phone: [facility] 250 DO Work Phone: Start: 01-31-[address] Waldo Sow Fac ility: Start: 01-24-2022 End: 01-24-2022 ambulatory Bill aDn Other [employer] Other Start: 01-24-2022 Office outpatient vi sit 25 minutes Bill Dan [facility] Start: 01-22-2022 ambulatory Waldo Varma II Faci lity:[id number] Start: 01-21-2022 ambulatory Waldo Varma II Faci lity:[id number] Start: 01-20-2022 End: 01-22-2022 Evaluation and management of inpatient DO Jose Lan Work Phone: [facility] Start: 01-20-2022 ambulatory Waldo Varma II Faci lity:[id number] Start: 01-19-2022 End: 01-20-2022 ambulatory ANDERS BHARDWAJ Facility:[facility]1 Start: 11-07-2021 End: 11-08-[address] SANJEEV HAND Facility:[facility]1 Start: 10-13-2021 End: 10-13-2021 ambulatory Bill Dan Other [employer] Other Start: 10-13-2021 Telephone encounter Bill BAHENA G [facility] Start: 08-14-2021 End: 08-14-2021 ambulatory Bill Dan Other [employer] Other Start: 08-14-2021 Telephone encounter Bill BAHENA G [facility] Start: 07-13-2021 End: 07-13-2021 ambulatory Bill Dan Other [employer] Other Start: 07-13-2021 Office outpatient ne w 45 minutes Bill Dan [facility] Start: 07-11-2021 End: 07-11-[address] ADELA TAVERAS Facility:[facility]1 Start: 03-06-2021 End: 03-06-[address] SANJEEV HAND Facility:[facility]1 Start: 01-23-2021 Emergency department patient visit [facility] Start: 01-23-2021 End: 01-24-2021 Emergency department patient visit Neelima Nadia FRANCO Work Phone: [facility] ED Comment on above: Left flank pain (Jolynn paul Dx) Start: 10-06-2020 End: 10-06-2020 Emergency department patient visit [facility] Start: 04-03-2020 End: 04-04-2020 Emergency department patient visit [facility] Start: 04-03-2020 End: 04-03-2020 Emergency department patient visit Adela Swartz Phone: [facility] ED Comment on above: Major depressive epi sode (Primary Dx); Suicidal ideation Start: 03-29-2020 Emergency department patient visit [facility] Start: 03-29-2020 End: 03-29-2020 Emergency department patient visit [facility] ED Comment on above: Opiate withdrawal (H CC) (Primary Dx) Start: 02-23-2020 End: 02-23-2020 Emergency department patient visit TONIE ARZOLA [facility] Start: 02-23-2020 End: 02-23-2020 Emergency department patient visit Tonie Arzola Work Phone: [facility] ED Comment on above: Abdominal pain, unsp ecified abdominal location (Primary Dx); Non-intractable vomiting with nausea, unspecified vomiting type Start: 02-21-2020 End: 02-21-2020 Emergency department patient visit SARTHAK PARMAR [facility] Start: 02-21-2020 End: 02-21-2020 Emergency department patient visit Sarthak Parmar Work Phone: [facility] ED Comment on above: Colitis (Primary Dx) Start: 08-10-2019 End: 08-10-2019 Subsequent hospital visit by physician [facility] Registered Nurse Teacher [facility] EKG Comment on above: Arrived Start: 08-05-2019 End: 08-05-2019 Subsequent hospital visit by physician [facility] Start: 04-15-2017 End: 04-16-2017 Patient encounter procedure LAYO BILLS Facility:[facility] Procedures Date Procedure Procedure Detail Performing Clinician Start: 09-09-2024 Iaadiadoo influenza Rac fatou L Diane [employer] Work Phone: Start: 07-14-2024 Gluc bld gluc mntr d ev cleared fda spec home use Nigel Lawson MD Work Phone: Start: 06-04-2024 Plain chest X-ray Teena Dan DO Work Phone: Start: 06-04-2024 Viral nucleic acid assay Bill Dan DO Work Phone: Start: 01-31-2024 Hysteroscopy with endometrial ablation DO Bill Dan Work Phone: Start: 01-31-2024 GLUCOSE POCT GLUCOMETERS Mely Steinberg MD Work Phone: Start: 01-31-2024 Gonadotropin chorion ic quantitative Mely Steinberg MD Work Phone: Start: 01-21-2024 Complete blood count with white cell differential, automated Mely Steinberg MD Work Phone: Start: 01-21-2024 Comprehensive metabo lic panel Mely Steinberg MD Work Phone: Start: 10-01-2023 Ecg routine ecg w/le ast 12 lds w/i&r Sevta Arreola Nahun CL[employer] PICKER-CAREER REPRESENTATIVE Work Phone: Start: 08-19-2023 Mammography Sveta Roberto person CLAM PICKER-CAREER REPRESENTATIVE Work Phone: Start: 07-09-2023 Microscopic observat ion [Identifier] in Cervix by Cyto stain Nigel Lawson MD Work Phone: Start: 07-09-2023 THINPREP TIS PAP AND HPV MRNA E6/E7 Mely Steinberg MD Work Phone: Start: 06-19-2023 US scan of gallbladder DO Bill Dan Work Phone: Start: 04-04-2022 Plain chest X-ray DO Sh adarsh Urbanner Work Phone: Start: 01-22-2022 CL [facility] COR Angio DO S willykrish Lan Work Phone: Start: 01-22-2022 DO Jose rich Work Phone: Start: 01-23-2021 Urinalysis microscop ic only Neelima Dutton DO Work Phone: Start: 01-23-2021 Urnls dip stick/tabl et rgnt auto w/o microscopy Neelima Dutton DO Work Phone: Start: 01-23-2021 Ct abdomen & pelvis w/o contrast material Neelima Dutton DO Work Phone: Start: 01-23-2021 Assay of lipase Neelima Dutton DO Work Phone: Start: 01-23-2021 LACTATE, SEPSIS Neelima Dutton DO Work Phone: Start: 04-03-2020 COVID-19 SARTHAK EITCH ES Start: 04-03-2020 COVID-19 Adela To dd Work Phone: Start: 04-03-2020 Drug screen class list a SARTHAK EIPAUL Start: 04-03-2020 Urinalysis microscop ic only SARTHAK EITCHES Start: 04-03-2020 Urnls dip stick/tabl et rgnt auto w/o microscopy SARTHAK EITCHES Start: 04-03-2020 Drug screen class list a Adela Swenson Work Phone: Start: 04-03-2020 Urinalysis microscop ic only Adela Swenson Work Phone: Start: 04-03-2020 Urine test visual color cmprsn meths Adela Swenson Work Phone: Start: 04-03-2020 Urnls dip stick/tabl et rgnt auto w/o microscopy Adela Swenson Work Phone: Start: 04-03-2020 SUICIDE PRECAUTIONS ETA N EIPAUL Start: 04-03-2020 Ecg routine ecg w/le ast 12 lds w/i&r SARTHAK EIPAUL Start: 04-03-2020 EKG REPORT SARTHAK EITCH ES Start: 04-03-2020 Assay of ethanol SARTHAK E GINGERALYSA Start: 04-03-2020 Blood count complete auto&auto difrntl wbc SARTHAK EITCHES Start: 04-03-2020 Ecg routine ecg w/le ast 12 lds w/i&r Adela Swenson Work Phone: Start: 04-03-2020 EKG REPORT Hpf Scanni ng Start: 04-03-2020 Assay of ethanol Akilahiss lata Swenson Work Phone: Start: 04-03-2020 Assay of magnesium Fatuma ssa Aime Work Phone: Start: 04-03-2020 Assay of thyroid stimulating hormone tsh Adela Swenson Work Phone: Start: 04-03-2020 Assay of thyroxine total Adela Swenson Work Phone: Start: 04-03-2020 Blood count complete auto&auto difrntl wbc Adela Swenson Work Phone: Start: 03-29-2020 COVID-19 Te Jonerinn nd Work Phone: Start: 03-29-2020 Drug screen class list a Te Jonsandee Work Phone: Start: 03-29-2020 Urinalysis microscop ic only Te Pastrana Work Phone: Start: 03-29-2020 Urnls dip stick/tabl et rgnt auto w/o microscopy Te Pastrana Work Phone: Start: 03-29-2020 Assay of acetaminophen Te Pastrana Work Phone: Start: 03-29-2020 Assay of salicylate Julius Pastrana Work Phone: Start: 03-29-2020 Blood count complete auto&auto difrntl wbc Te Pastrana Work Phone: Start: 03-29-2020 Gonadotropin chorion ic quantitative Te Pastrana Work Phone: Start: 03-29-2020 Ecg routine ecg w/le ast 12 lds w/i&r Te Pastrana Work Phone: Start: 03-29-2020 EKG REPORT [facility] Start: 03-29-2020 Radiologic exam ches t single view Te Pastrana Work Phone: Start: 02-23-2020 Urinalysis microscop ic only SARTHAK EITCHES Start: 02-23-2020 Urnls dip stick/tabl et rgnt auto w/o microscopy SARTHAK EITCHES Start: 02-23-2020 ICE CHIPS SARTHAK EITCH ES Start: 02-23-2020 Ct abdomen & pelvis w/contrast material SARTHAK EITCHES Start: 02-23-2020 Urinalysis microscop ic only Tonie Arzola Work Phone: Start: 02-23-2020 Urnls dip stick/tabl et rgnt auto w/o microscopy Tonie Arzola Work Phone: Start: 02-23-2020 INSERT PERIPHERAL IV ET AN EITCHES Start: 02-23-2020 Blood count complete auto&auto difrntl wbc SARTHAK EITCHES Start: 02-23-2020 Ct abdomen & pelvis w/contrast material Tonie Arzola Work Phone: Start: 02-23-2020 Blood count complete auto&auto difrntl wbc Tonie Arzola Work Phone: Start: 02-23-2020 Gonadotropin chorion ic qualitative Tonie Arzola Work Phone: Start: 02-23-2020 Assay of lactate Clifton Azrola Work Phone: Start: 02-21-2020 Assay of lactate SARTHAK E ITCHES Start: 02-21-2020 Urinalysis microscop ic only SARTHAK EITCHES Start: 02-21-2020 Urnls dip stick/tabl et rgnt auto w/o microscopy SARTHAK EITCHES Start: 02-21-2020 Ct abdomen & pelvis w/contrast material SARTHAK EITCHES Start: 02-21-2020 Blood count complete auto&auto difrntl wbc SARTHAK EITCHES Start: 02-21-2020 INSERT PERIPHERAL IV ET AN EITCHES Start: 02-21-2020 Assay of lactate Sarthak E Eitches Work Phone: Start: 02-21-2020 Urinalysis microscop ic only Sarthak E Eitches Work Phone: Start: 02-21-2020 Urnls dip stick/tabl et rgnt auto w/o microscopy Sarthak E Eitches Work Phone: Start: 02-21-2020 Ct abdomen & pelvis w/contrast material Sarthak E Eitches Work Phone: Start: 02-21-2020 Assay of lipase Sarthak E Eitches Work Phone: Start: 02-21-2020 Blood count complete auto&auto difrntl wbc Sarthak E Eitches Work Phone: Start: 08-05-2019 Assay of thyroid stimulating hormone tsh Sr Sanjeev Boswell [employer] Work Phone: Start: 08-05-2019 Assay of thyroxine total Sr Sanjeev Boswell [employer] Work Phone: Start: 08-05-2019 Blood count complete auto&auto difrntl wbc Sr Sanjeev Boswell [employer] Work Phone: Start: 08-05-2019 Comprehensive metabo lic panel Sr Sanjeev Boswell [employer] Work Phone: Start: 04-15-2017 Anes integ musc & nr v head neck&posterior trunk TONY STEINBERG Start: 04-15-2017 INCISION OF SPINAL NERVE TORRIEMINEKOBY BILLS Hernia repair Bill reyes Work Phone: Ligation of fallopia n tube Bill Dan Work Phone: SARS Antigen (LFIA) DO Josekrish Lan Work Phone: NEGATED: Highlighted row has not occurred! Total colonoscopy Bill Audrey Eagle Work Phone: Plan of Treatment Date Care Activity Detail Author Start: 2033 Shingles Vaccine (1 of 2) Shingles Vaccine (1 of 2) [place], [place] Start: 2033 Zoster Vaccines (1 o f 2) Zoster Vaccines (1 of 2) [facility] Start: 07-09-2028 Screening for malignant neoplasm of cervix [facility] Start: 07-09-2026 Screening for malignant neoplasm of cervix [facility] Start: 10-13-2024 End: 10-13-2024 Patient encounter procedure 10/13/2024 10:20 AM EDT Office Visit [facility] [address] [place] [id number] Nigel Lawson MD [address] [place] [address] [facility] Start: 10-06-2024 End: 10-06-2024 Patient encounter procedure 10/06/2024 9:00 AM EDT Office Visit [facility] [address] [facility] [address] [place] [phone] Waldo Sow DO [address] [place] [address] [facility] Start: 08-18-2024 Screening for malignant neoplasm of breast Mammogram [facility] Start: 07-14-2024 End: 07-14-2025 25-hydroxyvitamin D3 [Mass/volume] in Serum or Plasma Vitamin D 25 hydroxy Total Lab Routine Type 2 diabetes mellitus with hyperglycemia, with long-term current use of insulin ([facility]) Expected: 07/14/2024 (Approximate), Expires: 07/14/2025 [facility] Comment on above: Expected: 07/14/2024 (Approximate), Expires: 07/14/2025 Start: 07-14-2024 End: 07-14-2025 C-peptide C-peptide Lab Routine Type 2 diabetes mellitus with hyperglycemia, with long-term current use of insulin ([facility]) Expected: 07/14/2024 (Approximate), Expires: 07/14/2025 [facility] Work Phone: Comment on above: Expected: 07/14/2024 (Approximate), Expires: 07/14/2025 Start: 07-14-2024 End: 07-14-2025 Lipid 1996 panel - Serum or Plasma Lipid panel Lab Routine Type 2 diabetes mellitus with hyperglycemia, with long-term current use of insulin ([facility]) Expected: 07/14/2024 (Approximate), Expires: 07/14/2025 [facility] Comment on above: Expected: 07/14/2024 (Approximate), Expires: 07/14/2025 Start: 07-14-2024 End: 07-14-2025 Microalbumin/Creatinin e panel in random Urine Microalbumin / creatinine urine ratio Lab Routine Type 2 diabetes mellitus with hyperglycemia, with long-term current use of insulin ([facility]) Expected: 07/14/2024 (Approximate), Expires: 07/14/2025 [facility] Comment on above: Expected: 07/14/2024 (Approximate), Expires: 07/14/2025 Start: 07-14-2024 End: 07-14-2025 Renal function panel Renal function panel Lab Routine Type 2 diabetes mellitus with hyperglycemia, with long-term current use of insulin ([facility]) Expected: 07/14/2024 (Approximate), Expires: 07/14/2025 [facility] Comment on above: Expected: 07/14/2024 (Approximate), Expires: 07/14/2025 Start: 07-14-2024 End: 07-14-2024 Patient encounter procedure 07/14/2024 10:50 AM EST Office Visit [facility] [address] [place] [address] Nigel Lawson MD [address] [place] [address] Type 2 diabetes mellitus with hyperglycemia, with long-term current use of insulin ([facility]) [facility] Comment on above: Type 2 diabetes jodee itus with hyperglycemia, with long-term current use of insulin ([facility]) Start: 05-19-2024 End: 05-19-2024 Patient encounter procedure 05/19/2024 2:30 PM EST Office Visit [facility] [address] [place] [address] Nigel Lawson MD [address] [place] [address] [facility] Start: 03-31-2024 Hepatitis B core antibody measurement [facility] Start: 03-31-2024 [facility] Start: 01-31-2024 [facility] Start: 01-31-2024 End: 01-31-2024 Patient encounter procedure 01/31/2024 7:30 AM EDT Procedure Visit [facility] Mely Steinberg MD [address] [place] [address] [facility] Start: 01-31-2024 [facility] Start: 10-18-2023 Insulin C-peptide measurement [facility] Start: 08-06-2023 End: 08-06-2023 Patient encounter procedure 08/06/2023 10:45 AM EST Office Visit [facility] [address] [place] [phone] Mely Steinberg MD [address] [place] [address] [facility] Start: 08-06-2023 End: 08-06-2023 Professional / ancillary services management [facility] Start: 07-27-2023 End: 09-06-2024 DBT Breast - bilateral screening Bilateral screening mammogram with tomosynthesis Imaging Routine Encounter for screening mammogram for malignant neoplasm of breast Expected: 07/27/2023, Expires: 09/06/2024 [facility] Work Phone: Comment on above: Expected: 07/27/2023 , Expires: 09/06/2024 Start: 07-09-2023 End: 07-09-2024 17-Hydroxyprogesterone 17-Hydroxyprogesterone Lab Routine Abnormal vaginal bleeding Expected: 07/09/2023 (Approximate), Expires: 07/09/2024 [facility] Comment on above: Expected: 07/09/2023 (Approximate), Expires: 07/09/2024 Start: 07-09-2023 End: 07-09-2024 Bacteria identified in Urine by Culture Urine culture Microbiology Routine Abnormal vaginal bleeding Expected: 07/09/2023 (Approximate), Expires: 07/09/2024 [facility] Comment on above: Expected: 07/09/2023 (Approximate), Expires: 07/09/2024 Start: 07-09-2023 End: 07-09-2024 Follicle stimulating hormone Follicle stimulating hormone Lab Routine Abnormal vaginal bleeding Expected: 07/09/2023 (Approximate), Expires: 07/09/2024 [facility] Comment on above: Expected: 07/09/2023 (Approximate), Expires: 07/09/2024 Start: 06-24-2023 [facility] Start: 02-01-2023 COVID-19 Vaccine ( season) COVID-19 Vaccine ( season) [facility] Start: 03-27-2022 [facility] Start: 01-22-2022 [facility] Start: 01-20-2022 Referral to global compensation analyst [facility] Start: 01-20-2022 Hospital admission [facility] Start: 02-01-2021 Influenza vaccination Flu vaccine (# 1) [employer] Work Phone: Start: 02-02-2020 Influenza vaccination Flu vaccine (# 1) [place] Start: 02-01-2019 Influenza vaccination Flu vaccine (# 1) [place] Start: 2005 DTaP/Tdap/Td Vaccine s (1 - Tdap) DTaP/Tdap/Td Vaccines (1 - Tdap) [facility] Start: 2004 Cervical cancer screen Cervical canc er screen [place], [place] Start: 2004 Screening for malignant neoplasm of cervix [facility] Start: 2002 DTaP/Tdap/Td vaccine (1 - Tdap) DTaP/Tdap/Td vaccine (1 - Tdap) [place] Start: 2002 Hepatitis B Vaccines (1 of 3 - 19+ 3-dose series) Hepatitis B Vaccines (1 of 3 - 19+ 3-dose series) [facility] Start: 2002 Urine screening for protein Diabetes: Urine Protein Screening [facility] Start: 2001 Hepatitis C screening Hepatitis C Sc reening [facility] Start: 1998 [facility] [place] [place] Start: 1998 [facility] [place] [place] Start: 1996 Varicella vaccination Varicell a Vaccines (1 of 2 - 13+ 2-dose series) [facility] Start: 1995 COVID-19 Vaccine (1) COVID-19 Vaccin e (1) [facility] Work Phone: Start: 1994 DTaP/Tdap/Td vaccine (1 - Tdap) DTaP/Tdap/Td vaccine (1 - Tdap) [place] Start: 1993 Diabetic foot examination Diabetes: Foot Exam [facility] Start: 1993 Glaucoma screening Diabetes: R etinopathy Screening [facility] Start: 1989 Pneumococcal 0-64 years Vaccine (1 of 1 - PPSV23) Pneumococcal 0-64 years Vaccine (1 of 1 - PPSV23) [place], [place] Start: 1989 Pneumococcal 0-64 years Vaccine (1 of 2 - PPSV23) Pneumococcal 0-64 years Vaccine (1 of 2 - PPSV23) [employer] Phone: Start: 1984 MMR Vaccines (1 of 1 - Standard series) MMR Vaccines (1 of 1 - Standard series) [facility] Start: 1984 Varicella vaccine (1 of 2 - 2-dose childhood series) Varicella vaccine (1 of 2 - 2-dose childhood series) [place] Start: 1983 Hemoglobin A1c measurement Diabetes: Hemoglobin A1C [facility] Start: 1983 Hepatitis C screening Hepatitis C sc reen [employer] Phone: Start: 1983 HIV screening HIV Screening [facility] Start: 1983 Lipid panel Lipid Panel [facility] Start: 1983 Urine screening for protein Diabetes: Urine Protein Screening [facility] Start: 1983 Yearly Adult Physical Yearly Adult P hysical [facility] Cortisol Cortisol Lab Rou dave Abnormal vaginal bleeding Ordered: 07/09/2023 [facility] Comment on above: Ordered: 07/09/2023 CT ABDOMEN PELVIS W IV CONTRAST Additional Contrast? None CT ABDOMEN PELVIS W IV CONTRAST Additional Contrast? None Imaging STAT 02/23/2020 9:02 AM EDT [place] End: 03-29-2020 Culture, Urine Culture, Urine Microbiology STAT One Time for 1 Occurrences starting 03/29/2020 until 03/29/2020 [place] Comment on above: One Time for 1 Occur rences starting 03/29/2020 until 03/29/2020 Culture, Urine Culture, Urine Microbiology STAT 03/29/2020 6:15 PM EDT [place] DHEA-sulfate DHEA-sulfate Lab Routine Abnormal vaginal bleeding Ordered: 07/09/2023 [facility] Comment on above: Ordered: 07/09/2023 ECG 12 Lead ECG 12 Lead ECG Routine Pre-operative clearance 10/01/2023 4:00 PM EDT [facility] Service Area Work Phone: Estradiol Estradiol Lab Ro utine Abnormal vaginal bleeding Ordered: 07/09/2023 [facility] Comment on above: Ordered: 07/09/2023 Estrone Estrone Lab Rout ine Abnormal vaginal bleeding Ordered: 07/09/2023 [facility] Comment on above: Ordered: 07/09/2023 Hemoglobin A1c measurement Hemoglobin A1c Lab Routine Abnormal vaginal bleeding Ordered: 07/09/2023 [facility] Comment on above: Ordered: 07/09/2023 Hepatitis C virus Ig G Ab [Presence] in Serum or Plasma by Immunoassay [facility] Hepatitis C virus RN A [log units/volume] (viral load) in Serum or Plasma by HARJINDER with probe detection [facility] Hepatitis C virus RN A [Units/volume] (viral load) in Serum or Plasma by HARJINDER with probe detection [facility] HIV 1+2 Ab+HIV1 p24 Ag [Presence] in Serum or Plasma by Immunoassay [facility] IgM [Mass/volume] in Serum or Plasma [facility] Iron and Iron bindin g capacity panel - Serum or Plasma Iron and TIBC Lab Routine Abnormal vaginal bleeding Ordered: 07/09/2023 [facility] Comment on above: Ordered: 07/09/2023 End: 01-23-2021 Lactate, Sepsis Lactate, Sepsis Lab Timed Now Then Every 2hr for 2 Occurrences starting 01/23/2021 until 01/23/2021, 1 completed [employer] Work Phone: Comment on above: Now Then Every 2hr f or 2 Occurrences starting 01/23/2021 until 01/23/2021, 1 completed Patient Education [facility] Work Phone: Patient referral [facility] Work Phone: Testosterone, free, total Testosterone, free, total Lab Routine Abnormal vaginal bleeding Ordered: 07/09/2023 [facility] Comment on above: Ordered: 07/09/2023 Thyrotropin [Units/volume] in Serum or Plasma TSH Lab Routine Abnormal vaginal bleeding Ordered: 07/09/2023 [facility] Comment on above: Ordered: 07/09/2023 Thyroxine measurement [facility] [place] [facility] Immunizations Immunization Date Immunization Notes Care Provider Fa gabriel 03-01-2023 Prevnar 20 Bill Dan Other [facility] 03-01-2023 Seasonal, quadrivale nt, recombinant, injectable influenza vaccine, preservative free Bill Dan Other [facility] 03-01-2023 influenza, live, intranasal, quadrivalent Bill Dan Other [facility] Payers Date Payer Category Payer Unknown [id number] 2023 Unknown 2022 Self-pay [id number] 2022 Medicaid (Managed Care) [id number] 2017 Medicaid [id number] 2016 Unknown [facility] x[facility]xxx 2016-Present [phone] [address] [place] [address] xxxxxxxxxxxx [id number]. [id number] 1983 Unknown [id number] 2..840.1.699184.3.579.2. 647 1983 Unknown [id number] 2.16840.1.134165.3.579.2. 173 1983 Unknown [id number] 2.16.840.1.935722.3.579.2. 173 1983 Unknown [id number] 2.16.840.1.740852.3.579.2. 173 1983 Unknown [id number] 2.16.840.1.168070.3.579.2. 173 1983 Unknown [id number] 2.16.840.1.070237.3.579.2. 173 1983 Unknown [id number] 2.16.840.1.911284.3.579.2. 173 1983 Unknown [id number] 2.16.840.1.639354.3.579.2. 593 1983 Unknown [id number] 2.16.840.1.756366.3.579.2. 593 1983 Unknown [id number] 2.16.840.1.403173.3.579.2. 593 1983 Unknown [id number] 2.16.840.1.176475.3.579.2. 593 1983 Unknown [id number] 2.16.840.1.478489.3.579.2. 593 1983 Unknown [id number] 2.16.840.1.405064.3.579.2. 356 1983 Unknown [id number] 2.16.840.1.815203.3.579.2. 356 1983 Unknown [id number] 2.16.840.1.340186.3.579.2. 356 1983 Unknown [id number] 2.16.840.1.897372.3.579.2. 356 1983 Unknown [id number] 2.16.840.1.592853.3.579.2. 356 1983 Unknown [id number] 2.16840.1.359657.3.579.2. 1259 1983 Unknown [id number] 2.16.840.1.242936.3.579.2. 1259 1983 Unknown [id number] 2.16.840.1.838337.3.579.2. 1259 1983 Unknown [id number] 2.16.840.1.453794.3.579.2. 1244 1959 Unknown [id number] 1959 Unknown [id number] 2.16.840.1.391987.19 Unknown [id number] 2.16.840.1.315570.3.579.2. 531 Unknown [id number] 2.16.840.1.614322.3.579.2. 531 Unknown [id number] 2.16.840.1.771579.3.579.2. 531 Unknown [id number] 2.16.840.1.047970.3.579.2. 531 Unknown [id number] 2.16.840.1.301928.3.579.2. 531 Social History Date Type Detail Facility Start: 10-04-2017 End: 10-01-2023 Tobacco smoking status HIIS Current every day smoker [place], [place] History of tobacco use Cigarette [place] Start: 10-04-2017 End: 10-01-2023 Cigarettes smoked current (pack per day) - Reported [place], [place] Comment on above: marijuana use; 1 PPD; Start: 10-04-2017 End: 01-23-2021 Alcohol intake Current drinker of alcohol (finding) [place] Start: 08-07-2016 Tobacco Comment 3-4 cigs a day [place] Start: 02-23-2014 Alcohol Comment rarely [place], [place] Start: 1985 Sex Assigned At Not on file [place] Start: 02-21-2020 End: 10-01-2023 Tobacco use and exposure Never used [place] Start: 09-21-2023 End: 10-06-2024 Exposure to SARS-CoV-2 (event) Not sure [place] Start: 07-09-2023 End: 10-01-2023 Sex Assigned At [employer] Other Start: 01-20-2022 End: 06-04-2024 Tobacco smoking status NHIS Smoker (finding) [facility] Start: 1985 Sex Assigned At Female F [facility] Start: 04-29-2023 Tobacco smoking status HIIS Never smoked tobacco (finding) [facility] Start: 07-09-2023 Tobacco use and exposure User of smokeless tobacco [facility] Start: 07-09-2023 End: 10-06-2024 Alcohol intake Lifetime non-drinker (finding) [facility] How often to you hav e a drink containing alcohol? Never [facility] How many standard drinks containing alcohol do you have on a typical day? Patient does not drink [facility] Start: 05-04-2023 Tobacco Comment 11-20 cigarettes/day, within 5minsutes after waking up [facility] Start: 10-15-2023 End: 09-09-2024 Alcoholic beverage intake Ex-drinker (finding) [facility] Start: 06-04-2024 Sex Female (finding) [facility] [place] [facility] NEGATED: Highlighted row [facility] Medical Equipment Procedure Code Equipment Code Equipment Origin al Text Equipment Identifier Dates Mesh Surg Hortencia P lug 1.6x1.9in 4.1x4.8cm [id number] Start: 08-27-2016 [id number], [id number], [id number], [id number] Start: 06-05-2023 End: 04-26-2025 Lancets (Onetouc h Delica Plus Lancet) 33 gauge [facility] Start: 02-19-2024 OneTouch Delica Plus 33 G lancets Start: 02-19-2024 End: 02-19-2024 Lancets (Onetouc h Delica Plus Lancet) 33 gauge misc Start: 02-19-2024 OneTouch Delica Plus 33 G lancets Start: 02-19-2024 End: 02-19-2024 Lancets (Onetouc h Delica Plus Lancet) 33 gauge misc Start: 02-19-2024 OneTouch Delica Plus 33 G lancets Start: 02-19-2024 End: 02-19-2024 Goals Date Patient Goal Desired Activity /State Functional Status Date Assessment Result Facility 01-22-2022 Functional status Patient at [facility] Work Phone: Mental Status Date Assessment Result Facility 01-22-2022 Cognitive function Cognitive Sta tus Patient at Baseline [facility] Work Phone: Clinical Notes 01-23-2021 to 10-06-2024 Waldo Sow, DO - 10/06/2024 9:00 AM EDTPatient InstructionsAttachmentsTelephone Encounter - Micheal James - 09/11/2024 8:07 AM EDTRagunnar Lin NP - 09/09/2024 1:50 PM EDT Note Date & Type Note Facility 10-06-2024 History of Present illness Narrative Chief Complaint Patient presents with Annual Exam 1 year, syndrome X Subjective Natividad Bonner is a 39 y.o. female 39-year-old female returns for annual follow-up, previously seen on a as needed basis; doing well other than complaints of edema. She still smoking a pack a day. We have counseled her for 5 minutes on tobacco cessation given her past history. 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 She denies angina or nitrate usage recurrent hospitalizations again her only complaint is pedal and pretibial edema. She has never had heart failure she denies shortness of breath (despite smoking a pack a day) We reviewed her angiogram and follow-up office visits. We have counseled her on weight loss, dietary discretion, exercise and a daily basis as a means of improving overall health and welfare and reducing cardiovascular events. Will prescribe hydrochlorothiazide 25 mg 3 times weekly for her edema with the above-mentioned counseling, she can follow-up as needed with cardiology, continue routine follow-up with primary care Review of Systems Cardiovascular: Positive for leg swelling. Gastrointestinal: Positive for heartburn. All other systems reviewed and are negative. Vitals: 10/06/24 0907 BP: 124/76 BP Location: Right arm Patient Position: Sitting Pulse: 96 Weight: 120 kg (264 lb 9.6 oz) Height: 1.575 m (5' 2 ) Objective Physical Exam Constitutional: Appearance: Normal appearance. HENT: Nose: Nose normal. Neck: Vascular: No carotid bruit. Cardiovascular: Rate and Rhythm: Normal rate. Pulses: Normal pulses. Heart sounds: Normal heart sounds. Pulmonary: Effort: Pulmonary effort is normal. Breath sounds: Wheezing present. Abdominal: General: Bowel sounds are normal. Palpations: Abdomen is soft. Musculoskeletal: General: Normal range of motion. Cervical back: Normal range of motion. Right lower leg: Edema present. Left lower leg: Edema present. Comments: trace Skin: General: Skin is warm and dry. Neurological: General: No focal deficit present. Mental Status: She is alert. Psychiatric: Mood and Affect: Mood normal. Behavior: Behavior normal. Thought Content: Thought content normal. Judgment: Judgment normal. Allergies Patient has no known allergies. Current Medications Current Outpatient Medications Medication Instructions albuterol 90 mcg/actuation inhaler 2 puffs, Every 6 hours aspirin 81 mg, oral, Daily atenolol (TENORMIN) 50 mg, oral, Daily atorvastatin (LIPITOR) 40 mg, oral, Nightly Austedo XR 30 mg tablet extended release 24 hr 1 tablet, Daily RT buprenorphine-naloxone (Suboxone) 2-0.5 mg SL tablet 1 tablet, Daily busPIRone (Buspar) 30 mg tablet 1 tablet, 3 times daily Dulera 200-5 mcg/actuation inhaler 2 puffs, 2 times daily Jardiance 25 mg, Daily Lantus Solostar U-100 Insulin 100 unit/mL (3 mL) pen metFORMIN XR (GLUCOPHAGE-XR) 1,000 mg, 2 times daily (morning and late afternoon) oxybutynin XL (DITROPAN-XL) 5 mg, Daily QUEtiapine (SEROQUEL) 100 mg, Nightly Trulicity 3 mg/0.5 mL pen injector Every 7 days venlafaxine XR (EFFEXOR-XR) 75 mg, Daily Assessment/Plan 1. ASHD (arteriosclerotic heart disease) 2. Type 2 diabetes mellitus with other specified complication, with long-term current use of insulin 3. Current every day smoker 4. BMI 45.0-49.9, adult (Multi) 5. Localized edema 6. Syndrome X (cardiac) Follow Up In Cardiology Scribe Attestation By signing my name below, I, Kamilah Hammer LPN Scribe attest that this documentation has been prepared under the direction and in the presence of Waldo Sow DO. Provider Attestation - Scribe documentation All medical record entries made by the Scribe were at my direction and personally dictated by me. I have reviewed the chart and agree that the record accurately reflects my personal performance of the history, physical exam, discussion and plan. documented in this encounter [facility] Work Phone: 10-06-2024 Instructions Kamilah Oliveros LPN - 10/06/2024 9:00 AM EDT Please bring all medicines, vitamins, and herbal supplements with you when you come to the office. Prescriptions will not be filled unless you are compliant with your follow up appointments or have a follow up appointment scheduled as per instruction of your physician. Refills should be requested at the time of your visit. BMI was above normal measurement. Current weight: 120 kg (264 lb 9.6 oz) Weight change since last visit (-) denotes wt loss 15.6 lbs Weight loss needed to achieve BMI 25: 128.2 Lbs Weight loss needed to achieve BMI 30: 100.9 Lbs Provided instructions on dietary changes Provided instructions on exercise. Follow up ordered as needed only The following attachments cannot be sent through Care Everywhere.Mediterranean Diet (Kinyarwanda)documented in this encounter [facility] Work Phone: 09-11-2024 Telephone encounter Note Pt requesting refill for Lantus to [facility] please and thank you! [facility] 09-11-2024 Miscellaneous Notes Pt requesting refill for Lantus to [facility] please and thank you! documented in this encounter [facility] 09-09-2024 History of Present illness Narrative [address] , [address] [facility], [address] P: [phone] F: [phone] HPI Historian of HPI: patient Natividad Bonner is a 39 y.o. female who presents today to the Urgent Care with the following complaints and denials which have been present for 2 day(s) C/O Denies Symptom Comments [x] [] Runny Nose [] [x] Difficulty Swallowing [] [x] Sore Throat [x] [] Cough [] [x] Ear Pain [x] [] Fever [] [x] Chills [x] [] Nasal Congestion [] [x] Myalgia [x] [] Sinus Pain [x] [] Sinus Pressure Additional Comments: pt has taken ibuprofen , tylenol OTC medication without relief Pt is agreeable to flu testing. ROS A complete system ROS was performed and negative aside from the pertinent positives noted in the HPI and PE. PHYSICAL EXAM Examination General Examination: General Examination: alert, oriented, normal affect, well appearing, in no acute distress, well developed, well nourished Head: normocephalic, atraumatic Eyes: sclera non-icteric Ears: tympanic membrane intact, clear, auditory canal non inflamed Nose: congested with clear drainage. Oral Cavity: mucosa moist, no lesions Throat: uvula midline Neck/Thyroid: FROM Lymph Nodes: no cervical adenopathy Heart: no murmurs, regular rate and rhythm, S1, S2 normal Lungs: end-expiratory wheezing throughout. No rales, rhonchi. Cough present Extremities: no edema, no cyanosis Neurologic: alert and oriented Psych: alert, oriented, cognitive function intact, cooperative with exam TREATMENT PLAN 1. Cough, unspecified type Influenza testing negative. Patient informed of results. - RAPID FLU 2. Bronchitis with asthma, acute ([facility]/HCC) (Primary) Diagnosis and treatment discussed with patient. Immediate eval if new, worsening sx otherwise f/u with PCP if sx not resolved with course of steroid, sooner if not improving over next 3-4 days. To ED for trouble swallowing secretions, shortness of breath, chest pain, or other red flag symptoms. Advised Pt on supportive therapies, including using a vaporizer/humidifer/steam from hot showers, lots of fluids as tolerated, rest, avoidance of second-hand smoke, frequent hand-washing w/ soap and water, and OTC ibuprofen or acetaminophen as directed prn for pain control Must monitor blood glucose closely. Stop medrol if BG is elevated. - albuterol (2.5 MG/3ML) 0.083% nebulizer solution; Take 3 mL (2.5 mg) by nebulization every 6 (six) hours if needed for wheezing or shortness of breath Dispense: 90 mL; Refill: 0 - methylPREDNISolone (Medrol Dospak) 4 MG tablets; Follow schedule on package instructions Dispense: 21 tablet; Refill: 0 documented in this encounter [facility] 07-14-2024 History of Present illness Narrative Natividad Bonner is a 38 y.o. female No ref. provider found presents with chief complaint of Diabetes and Follow-up HPI: IM : 07/2024 follow up visit on 07/14/2024 A1c 11.3, bg 171, Lantus 40 units, Trulicity 3 mg once , c/o metformin to 1000 twice a day, Jardiance 25. CGM 0-18-82 avg 233, was off her meds for almost 2 months due to lack insurance, now for almost 2 weeks. IM : 01/2024 follow up visit on 01/28/2024 A1c 9.1, bg 221, on Lantus 40 at bedtime, Trulicity 3 mg once , c/o metformin to 1000 twice a day, Jardiance 25. CGM 0-35-65 avg 182. IM : 10/2023 follow up visit on 10/22/2023 bg 181, on Lantus 40 at bedtime, Trulicity 3 mg once a week, c/o metformin to 1000 twice a day, Jardiance 25. CGM 1-64-35 AVG 169, lab TG 162,TC 125, LDL 61, VIT 17. HPI: 09/2023 A new patient came by herself for uncontrolled diabetes. A1c in our office 11.9, blood sugar 333. She is on Soliqua 31 units, used to be on Trulicity before and metformin 500 twice a day and that is only for her medication, almost for one year, but diagnosed long time ago for pre-diabetes. Eye exam more than 1 year and I thought they need to do it at least once a year. No retinopathy. No coronary artery disease. No numbness or tingling. SUBJECTIVE: MEDICATIONS: Current Outpatient Medications Medication Instructions albuterol HFA 90 mcg/act inhaler 2 puffs, Every 6 hours aspirin 81 mg, Daily RT atenolol (TENORMIN) 50 mg, Daily RT atorvastatin (LIPITOR) 40 mg, Nightly Austedo XR 30 MG tablet sustained-release 24 hour 1 tablet, Daily Blood Glucose Monitoring Suppl (ONE TOUCH ULTRA 2) w/Device kit buprenorphine-naloxone (Suboxone) 12-3 MG per sublingual film Q24H busPIRone (Buspar) 15 MG tablet Continuous Glucose Sensor (Glokalise G7 Sensor) misc 1 each doxepin (SINEquan) 10 MG capsule Daily Dulera 200-5 MCG/ACT inhaler 2 puffs, 2 times daily ergocalciferol (VITAMIN D2) 1.25 mg, Oral, Weekly gabapentin (Neurontin) 100 MG capsule 1 capsule, Nightly glucose blood (ManageIQ Ultra Test) test strip USE THREE TIMES A DAY hydrocortisone 2.5 % cream insulin pen needle ([employer] Pen [place] 31G) 31G X 8 mm misc USE ONCE DAILY Jardiance 25 MG 1 tablet, Daily Lancets (PiictuTouch Delica Plus [id number]) misc 100 Lancets, Subcutaneous, 2 times daily Lantus SoloStar 40 Units, Subcutaneous, Nightly medroxyPROGESTERone (Depo-Provera) 150 MG/ML injection One ml every 10 weeks metFORMIN XR (GLUCOPHAGE-XR) 1,000 mg, Oral, 2 times daily, Do not crush, chew, or split. mirtazapine (Remeron) 15 MG tablet Daily at bedtime oxybutynin XL (Ditropan-XL) 5 MG 24 hr tablet Daily prazosin (Minipress) 5 MG capsule Daily at bedtime QUEtiapine (SEROquel) 100 MG tablet Daily at bedtime Trulicity 3 mg, Subcutaneous, Weekly venlafaxine XR (Effexor XR) 75 MG 24 hr capsule ALLERGIES: No Known Allergies Past Medical History: Diagnosis Date Anxiety Asthma ([facility]) Bipolar disorder ([facility] Depression ([facility]) Dietary counseling and surveillance Essential (primary) hypertension ([facility]) History of being hospitalized 01/2022 myocardial infarction Hypertension ([facility]) Insomnia Irregular menses Mixed hyperlipidemia ([facility]) Morbid obesity with body mass index (BMI) of 40.0 to 49.9 ([facility]) Type 2 diabetes mellitus with hyperglycemia ([facility]) Type II diabetes mellitus ([facility]) Vitamin D deficiency, unspecified Past Surgical History: Procedure Laterality Date TUBAL LIGATION UMBILICAL HERNIA REPAIR REVIEW OF SYMPTOMS: 14 POINT OF SYSTEM REVIEWED AND NEGATIVE OBJECTIVE: Constitutional: Afebrile @ home; no weakness or night sweats SKIN: No change in skin color; no itching, rash or lesions; no hair loss; HEENT: No HAs or injury; no dizziness; No difficulty with vision; no eye pain, discharge or lesions; no hearing loss or difficulty; no nasal discharge, NECK: No pain, limitation of motion, lumps or swollen glands RESP: No cough, wheezing or difficulty breathing. No CP with breathing; CARDIO: No CP , SOB or fatigue, No edema, palpitations or dyspnea with exertion GI: No N/V/D or abd. pain; good appetite with no recent change. No heart burn, liver or gallbladder disease; no rectal bleeding or pain : No urinary pain , frequency or odor. MUSCULOSKELETAL: No muscle pain or cramps; no extremity weakness.No joint pain, stiffness, swelling or limitation of movement NEUROLOGY: No H/O seizures, stroke or fainting. No weakness, tremors. Hematology: No bleeding problems or excessive bruising ENDOCRINE: No increase in hunger, thirst or urination; admits compliance to medical management plan Feet: numbness tingling no , ulcers or skin break no Lab Results Component Value Date HGBA1C 11.3 07/14/2024 Lab Results Component Value Date GLU 171 07/14/2024 GLU 180 01/31/2024 GLU 199 (H) 01/21/2024 Visit Vitals BP 120/80 Pulse 88 Resp 18 Ht 5' 2 Wt 267 lb SpO2 97% BMI 48.83 kg/m OB Status Having periods Smoking Status Every Day BSA 2.3 m ASSESSMENT AND PLAN: Assessment/Plan Diagnoses and all orders for this visit: Type 2 diabetes mellitus with hyperglycemia, with long-term current use of insulin ([facility]) - POCT glucose manually resulted - POCT glycosylated hemoglobin (Hb A1C) docked device - C-peptide; Future - Vitamin D 25 hydroxy Total; Future - Microalbumin / creatinine urine ratio; Future - Lipid panel; Future - Renal function panel; Future We will continue with Lantus 40 units, Trulicity 3 mg once weekly, metformin 1000 twice a day, Jardiance 25 mg once a day. Vitamin D deficiency Primary hypertension ([facility]) Hyperlipemia, mixed ([facility]) Encounter for dietary consultation Diet and exercise reviewed with the patient Class 3 severe obesity due to excess calories with serious comorbidity and body mass index (BMI) of 45.0 to 49.9 in adult ([facility]) Follow up in about 3 months (around 10/11/2024). documented in this encounter [facility] 03-31-2024 Evaluation note Authored March 31, 2024 2:26pm Multiple problems, medicatio n management, review and interpretation of labs ordered by others, time [facility] Work Phone: [phone]) 887-860410-29-2024 Evaluation note* Author Raoul Moon [facility] Authored March 31, 2024 1 :26pm Multiple problems, medicatio n management, review and interpretation of labs ordered by others, time [facility] Work Phone: 1(247) 657-576104-30-2024 Evaluation + Plan note* Assessment & Plan Note - RENÉ Moses - 10/01/2023 4:18 PM EDTAssociated Problem(s): Current every day smoker 1 pack per day Continued every day tobacco use. Have reviewed the negative cardiovascular impact of nicotine. Continues to decline pharmacological assistance. [facility] Work Phone: 1(531) 382-934404-30-2024 Miscellaneous Notes* Assessment & Plan Note - RENÉ Moses - 10/01/2023 4:18 PM EDTAssociated Problem(s): Current every day smoker 1 pack per day Continued every day tobacco use. Have reviewed the negative cardiovascular impact of nicotine. Continues to decline pharmacological assistance. documented in this [facility] Work Phone: 1(725) 630-769904-30-2024 History of Present illness Narrative* RENÉ Moses - 10/01/2023 4:00 PM EDT Chief Complaint Doing fine Reason for Visit Patient presents to the office today for outpatient follow-up for cardiac risk stratification. Last evaluated in clinic by after Juanjose January 2022. Presents today ambulatory with steady gait. Accompanied by spouse Patient denies any hospitalizations or significant changes to interval medical history since last office follow-up. History of Present Illness Patient presents to [facility] to obtain cardiac risk stratification prior to a POKER MACHINE ATTENDANT ablation procedure. Surgeon: Dr. Steinberg Planned date: yet to be scheduled Prior cardiovascular history: Jan 2022 cardiac cath: minimal disease with diffuse distal small vessel disease Jan 2022 TTE: LVEF 60%, no valvular heart disease No history of dysrhythmias Patient presents to the office today with activity level > 4 METS. Daily activity includes: ADLs, walking her dog, works at [employer]. Total DASI: 44.7 METs: 8.23 EKG in office: Normal sinus rhythm without evidence of ischemia ACC/AHA guidelines: 1. Major clinical markers: -Acute coronary syndrome or CA within 30 days: No -Decompensated heart failure: No -Significant arrhythmia: No -Severe valvular heart disease; no 2. Intermediate clinical markers -History of ischemic heart disease (prior CA, current chest pain secondary to ischemia, use of nitrates or EKG changes): No -Compensated/prior heart failure: No -Diabetes requiring insulin: Yes -Renal insufficiency with creatinine greater than 2: No 3. Minor clinical markers: -Age greater than or equal to 70: No -Abnormal EKG: No -Rhythm other than sinus rhythm: No -Low functional capacity: No -Prior CVA: No -Uncontrolled hypertension: No Surgery specific risk: Low risk POKER MACHINE ATTENDANT ablation According to ACC/AHA guidelines, a patient with recent favorable cardiovascular evaluation without change in symptoms may proceed to surgical procedure without additional cardiovascular procedure. Daily METS >4. RPI Revised Cardiac Risk Index: Very low with 0.4% Mace Concomitant medication review: No contraindication to interrupt aspirin Patient reports that overall has no complaint(s) of chest pain, chest pressure/discomfort, dyspnea,exertional chest pressure/discomfort, fatigue, irregular heart beat, and lower extremity edema Review of Systems Cardiovascular: Negative for chest pain, dyspnea on exertion, irregular heartbeat, leg swelling, near-syncope, orthopnea, palpitations, paroxysmal nocturnal dyspnea and syncope. Visit Vitals BP 108/80 (BP Location: Right arm, Patient Position: Sitting) Pulse 73 Ht 1.575 m (5' 2 ) Wt 113 kg (249 lb) BMI 45.54 kg/m Smoking Status Every Day BSA 2.22 m Physical Exam Vitals and nursing note reviewed. HENT: Head: Normocephalic. Cardiovascular: Rate and Rhythm: Normal rate and regular rhythm. Heart sounds: Normal heart sounds. Pulmonary: Effort: Pulmonary effort is normal. Breath sounds: Normal breath sounds. Abdominal: Palpations: Abdomen is soft. Musculoskeletal: Right lower leg: No edema. Left lower leg: No edema. Skin: General: Skin is warm and dry. Neurological: General: No focal deficit present. Mental Status: She is alert. Psychiatric: Mood and Affect: Mood normal. Behavior: Behavior normal. No Known Allergies Current Outpatient Medications Medication Instructions albuterol 90 mcg/actuation inhaler 2 puffs, inhalation, Every 6 hours aspirin 81 mg, oral, Daily atenolol (TENORMIN) 50 mg, oral, Daily atorvastatin (LIPITOR) 40 mg, oral, Nightly busPIRone (Buspar) 30 mg tablet 1 tablet, 3 times daily doxepin (SINEQUAN) 50 mg, Daily Dulera 200-5 mcg/actuation inhaler 2 puffs, inhalation, 2 times daily Jardiance 25 mg, Daily Lantus Solostar U-100 Insulin 100 unit/mL (3 mL) pen metFORMIN XR (GLUCOPHAGE-XR) 1,000 mg, 2 times daily with meals mirtazapine (REMERON) 30 mg, Nightly oxybutynin XL (DITROPAN-XL) 5 mg, Daily QUEtiapine (SEROQUEL) 100 mg, Nightly Trulicity 3 mg/0.5 mL pen injector Every 7 days venlafaxine XR (EFFEXOR-XR) 75 mg, Daily Assessment: A 38-year-old female with favorable cardiac catheterization January 2022, normal LVEF presents for cardiac risk stratification prior to a low risk POKER MACHINE ATTENDANT procedure. At this time, there are no prohibitivecardiovascular risk to proceed with much- needed surgical procedure. Plan: Through informed decision making process incorporating patients unique circumstances, the followingtreatment plan will be initiated: 1. Prescription drug management of cardiovascular medication for efficacy, adherence to treatment, side effect assessment and polypharmacy. Current treatment clinically warranted and to continue without modifications. 2. Return for follow-up; in the interim, contact the office if new symptoms arise. Annual Dr. Sow You need to stop smoking. Though it is not easy, more than half of all adults smokers have quit. Weencourage you to write down all the reasons you should quit smoking and set a quit date for yourself. Ask us how we can help. You may also call 3-118-HJMI-NOW for free resources and assistance. Sveta Garnica MSN, RENÉ, PMHNP-[facility] Please excuse any errors in grammar or translation related to this dictation. Voice recognition software was utilized to prepare this document. documented in this [facility] Work Phone: [phone]) 961-741304-30-2024 Instructions* Patient Instructions* RENÉ Moses - 10/01/2023 4:00 PM EDT Please bring all medicines, vitamins, and herbal supplements with you when you come to the office. Prescriptions will not be filled unless you are compliant with your follow up appointments or have a follow up appointment scheduled as per instruction of your physician. Refills should be requested at the time of your visit. EKG done in office today PLAN: Through informed decision making process incorporating patients unique circumstances, the followingtreatment plan will be initiated: 1. Prescription drug management of cardiovascular medication for efficacy, adherence to treatment, side effect assessment and polypharmacy. Current treatment clinically warranted and to continue without modifications. 2. Return for follow-up; in the interim, contact the office if new symptoms arise. Annual Dr. Sow You need to stop smoking. Though it is not easy, more than half of all adults smokers have quit. Weencourage you to write down all the reasons you should quit smoking and set a quit date for yourself. Ask us how we can help. You may also call 1-680-UVTS-NOW for free resources and assistance. documented in this [facility] Work Phone: [phone]) 715-368402-06-2024 History of Present illness Narrative* Mely Steinberg MD - 07/09/2023 8:15 AM EST Images from the original note were not included. Mely Steinberg MD Obstetrics and Gynecology Patient: Natividad Bonnre : 1985 (37 y.o.) Yearly Wellness Exam Date: 07/09/2023 Reason for Visit - Chief Complaint Patient presents with Gynecologic Exam Vaginal Bleeding LMP: 06/26- does not keep trach Last Mammogram: order placed for 2023 Last Pap: Been a while Complaints: Heavy menstrual bleeding. Heavy menses, a few days before menses has bad cramping. Has clotting when bleeding. Visit Vitals BP 132/82 Wt 250 lb LMP (Approximate) OB Status Having periods Smoking Status Every Day History of Present Illness, Associated Treatments and Results - OB History Para Term AB Living 2 0 0 0 0 0 SAB IAB Ectopic Multiple Live Births 0 0 0 0 0 # Outcome Date GA Lbr Richie/2nd Weight Sex Delivery Anes PTL Lv 2 1 Review of Systems - Constitutional: Negative. HENT: Negative. Eyes: Negative. Respiratory: Negative. Cardiovascular: Negative. Gastrointestinal: Negative. Endocrine: Negative. Genitourinary: Negative. Musculoskeletal: Negative. Skin: Negative. Allergic/Immunologic: Negative. Neurological: Negative. Hematological: Negative. Psychiatric/Behavioral: Negative. No Known Allergies Current Outpatient Medications: aspirin 81 MG EC tablet, Take 81 mg by mouth in the morning., Disp: , Rfl: atorvastatin (Lipitor) 40 MG tablet, Take 40 mg by mouth at bedtime, Disp: , Rfl: Blood Glucose Monitoring Suppl (ONE TOUCH ULTRA 2) w/Device kit, , Disp: , Rfl: buprenorphine-naloxone (Suboxone) 12-3 MG per sublingual film, Q24H, Disp: , Rfl: busPIRone (Buspar) 15 MG tablet, , Disp: , Rfl: doxepin (SINEquan) 10 MG capsule, Daily, Disp: , Rfl: hydrocortisone 2.5 % cream, , Disp: , Rfl: Lancets (OneTouch Delica Plus [id number]) [facility], , Disp: , Rfl: metFORMIN XR (Glucophage-XR) 500 MG 24 hr tablet, , Disp: , Rfl: mirtazapine (Remeron) 15 MG tablet, Daily at bedtime, Disp: , Rfl: OneTouch Ultra test strip, , Disp: , Rfl: oxybutynin XL (Ditropan-XL) 5 MG 24 hr tablet, Daily, Disp: , Rfl: prazosin (Minipress) 5 MG capsule, Daily at bedtime, Disp: , Rfl: QUEtiapine (SEROquel) 100 MG tablet, Daily at bedtime, Disp: , Rfl: Trulicity 1.5 MG/0.5ML solution pen-injector, , Disp: , Rfl: venlafaxine XR (Effexor XR) 75 MG 24 hr capsule, , Disp: , Rfl: albuterol HFA 90 mcg/act inhaler, Inhale 2 puffs every 6 (six) hours, Disp: , Rfl: atenolol (Tenormin) 50 MG tablet, Take 50 mg by mouth in the morning., Disp: , Rfl: Dulera 200-5 MCG/ACT inhaler, Inhale 2 puffs in the morning and 2 puffs in the evening., Disp: , Rfl: Past Medical History: Diagnosis Date Asthma (CMS/HCC) History of being hospitalized 01/2022 myocardial infarction Hypertension ([facility]/HCC) Type II diabetes mellitus ([facility]/HCC) Past Surgical History: Procedure Laterality Date TUBAL LIGATION UMBILICAL HERNIA REPAIR Family History Problem Relation Name Age of Onset Gallbladder disease Mother Colon cancer Mother Breast cancer Maternal Grandmother Social History Tobacco Use Smoking Status Every Day Packs/day: 1 Types: Cigarettes Smokeless Tobacco Current Tobacco Comments 11-20 cigarettes/day, within 5minsutes after waking up Physical Exam - General appearance, mentation, extraocular movements, facial strength and movement, hearing, upper and lower extremity strength and tone, sensation to gross testing, coordination, and gait are normalor at baseline unless noted below. Physical Exam Constitutional: Appearance: Normal appearance. Genitourinary: Right Labia: No rash or lesions. Left Labia: No lesions or rash. No vaginal discharge or erythema. No vaginal prolapse present. No vaginal atrophy present. Right Adnexa: not tender and no mass present. Left Adnexa: not tender and no mass present. No cervical lesion. Uterus is not tender. Uterus is anteverted. Breasts: Right: Normal. No mass or nipple discharge. Left: Normal. No mass or nipple discharge. HENT: Head: Normocephalic and atraumatic. Cardiovascular: Rate and Rhythm: Normal rate and regular rhythm. Pulmonary: Breath sounds: Normal breath sounds. Abdominal: General: There is no distension. Palpations: Abdomen is soft. There is no mass. Tenderness: There is no abdominal tenderness. Musculoskeletal: General: Normal range of motion. Cervical back: Neck supple. Lymphadenopathy: Cervical: No cervical adenopathy. Neurological: Mental Status: She is alert and oriented to person, place, and time. Skin: General: Skin is warm and dry. Psychiatric: Mood and Affect: Mood normal. Assessment/Plan ICD-10-CM 1. Screening for malignant neoplasm of cervix Z12.4 THINPREP TIS PAP AND HPV MRNA E6/E7 2. Encounter for gynecological examination without abnormal finding Z01.419 THINPREP TIS PAP AND HPV MRNA E6/E7 3. Encounter for screening mammogram for malignant neoplasm of breast Z12.31 Bilateral screening mammogram with tomosynthesis 4. Abnormal vaginal bleeding N93.9 Natividad was seen today for gynecologic exam and vaginal bleeding. Diagnoses and all orders for this visit: Screening for malignant neoplasm of cervix - THINPREP TIS PAP AND HPV MRNA E6/E7 Encounter for gynecological examination without abnormal finding - THINPREP TIS PAP AND HPV MRNA E6/E7 Encounter for screening mammogram for malignant neoplasm of breast - Bilateral screening mammogram with tomosynthesis; Future Abnormal vaginal bleeding - 17-Hydroxyprogesterone; Future - Cortisol - Estradiol - Estrone - Follicle stimulating hormone; Future - DHEA-sulfate - Hemoglobin A1c - Testosterone, free, total - TSH - Iron and TIBC - Cancel: Urine culture - medroxyPROGESTERone (Depo-Provera) 150 MG/ML injection; Inject 1 mL (150 mg) into the shoulder, thigh, or buttocks every 3 (three) months - 17-Hydroxyprogesterone - Follicle stimulating hormone - Urine culture; Future - Urine culture Pap and exam performed. Mammogram ordered Hormonal panel ordered for heavy bleeding TVUS also ordered. Pt chooses DPA to help heavier bleeding Side effects and instructions discussed Urine culture ordered for abnormal U/A Results can be found in MyChart in 7 days Return 1 year/ultrasound visit documented in this encounterAlvin J. Siteman Cancer [id number] Evaluation note* Encounter Date Diagnosis Assessment Notes Treatment Notes Treatment Clinical Notes Jul, Type 2 diabetes mellitus with hyperglycemia, unspecified whether keno terminal operator insulin use (ICD-10 - E11.65) [facility] Other 01-03-2024 Evaluation note* Encounter Date Diagnosis Assessment Notes Treatment Notes Treatment Clinical Notes Jun, Type 2 diabetes mellitus with hyperglycemia, without long-term current use of insulin (ICD-10 - E11.65) She feels she can make some dietary changes and we will increase her Trulicity to 1.5 mg weekly. I advised her to discuss her Seroquel with her psychiatrist to see if there is a better metabolic option Jun, Bleeding hemorrhoids (ICD-10 - K64.9) She can use the hydrocortisone cream as needed, referral sent for colonoscopy Jun, RUQ abdominal pain (ICD-10 - R10.11) We will proceed with ultrasound and call with results Jun, Constipation (ICD-10 - K59.00) Since she just started the Metamucil she will slowly titrate this over the next 1 to 2 weeks and if not seeing benefit she will call and I will add a prescription medication for constipation Jun, Hidradenitis suppurativa (ICD-10 - L73.2) Referral sent Jun, Increased urinary frequency (ICD-10 - R35.0) If symptoms do not improve over the next 1 to 2 weeks she will complete the urinalysis [facility] Other 05-02-2023 Evaluation note* Encounter Date Diagnosis Assessment Notes Treatment Notes Treatment Clinical Notes October, Type 2 diabetes mellitus with hyperglycemia, without long-term current use of insulin (ICD-10 - E11.65) We discussed her medications and she would like to switch from Januvia to Trulicity. We discussed the common side effects and she would like to proceed. I will get her a new glucometer and she will be able to test once a day October, OAB (overactive bladder) (ICD-10 - N32.81) Since she previously had a work-up, we will start oxybutynin and see how she responds. If symptoms do not improve with oxybutynin we will need to order additional testing October, Essential (primary) hypertension (ICD-10 - I10) Continue current medication [facility] Other 08-24-2022 Evaluation note* Encounter Date Diagnosis Assessment Notes Treatment Notes Treatment Clinical Notes Jan, Moderate persistent asthma without complication (ICD-10 - J45.40) Jan, Type 2 diabetes mellitus with hyperglycemia, without long-term current use of insulin (ICD-10 - E11.65) Continue efforts with diabetic diet and exercise Jan, Coronary artery disease involving [place] coronary artery of [place] heart, unspecified whether angina present (ICD-10 - I25.10) We discussed the need to quit smoking, she plans to try to cut back slowly. Given her chronic anxiety and depression issues I do not feel Chantix is a good idea and she does not want to try patches or gum Jan, Essential (primary) hypertension (ICD-10 - I10) Blood pressure remains at goal Jan, Mixed hyperlipidemia (ICD-10 - E78.2) Continue statin and I recommended working on the Mediterranean diet [facility] Other 08-22-20[facility] Progress note Author Wes Nunes [facility] January 21, 2022 4:02pm Note Date/Time January 21, 2022 4: 02pm [facility] [address] [place] [address] Hospitalist Progress Note Signed Patient: Natividad Bonner MR#: [id number] : 1985 Acct:[id number] Age/Sex: 36 / F Adm Date: 2 Loc: 4N Room: 2F8033-0 Type: ADM INOo Attending Dr: Wes Nunes MD Copies to: ~ Date of Service: 01/21/2022 Subjective Subjective Narrative: Patient seen and examined. No acute overnight events per RN. She is chest pain- free since she came to the hospital. Scheduled to have cardiac cath tomorrow Exam Physical Exam Vital Signs: Temp Pulse Resp BP Pulse Ox O2 Del Method 97.9 F 63 22 113/65 98 Room Air 01/21/22 12:00 01/21/22 12:00 01/21/22 12:00 01/21/22 12:00 01/21/22 12:00 01/21/22 09:00 Narrative: General: Awake, alert, oriented x3 not in acute distress HEENT: Normocephalic, atraumatic, PERRLA, normal mucosa Cardiovascular: Regular rate and rhythm , S1-S2 heard, no murmurs or gallops Lungs: No wheezing or rhonchi heard Gastrointestinal: Soft, nontender, bowel sounds heard Extremities: No edema Neurological: no sensory or motor deficit Skin: Dry and warm, no rashes or lesions Psych: Normal mood and affect Objective Lab Results CBC & Chem 7: 01/21/22 02:57 01/21/22 02:57 Meds Allergies and Active Meds Allergies metformin Adverse Reaction (Verified 01/20/22 10:12) Abdominal Pain Active Meds: Active Medications Generic Name Dose Route Start Last Admin Trade Name Freq PRN Reason Stop Dose Admin Acetaminophen 650 mg 01/20/22 04:14 01/20/22 09:45 Acetaminophen 325 Mg Tablet PO 01/20/23 04:13 650 mg Q6HR PRN Administration Pain Scale 1 - 3 or fever Albuterol 2 puff 01/20/22 04:32 Albuterol Hfa 60 Puff/8 Gram Inhaler INHALATION 01/20/23 04:31 Q6H PRN sob Albuterol 2 puff 01/20/22 08:00 01/21/22 12:45 Albuterol Hfa 60 Puff/8 Gram Inhaler INHALATION 01/20/23 07:59 2 puff QID.RESP EMELY Administration Aspirin 81 mg 01/20/22 09:00 01/21/22 09:10 Aspirin 81 Mg Tab.Chew PO 01/20/23 08:59 81 mg DAILY EMELY Administration Atorvastatin Calcium 80 mg 01/20/22 21:00 01/20/22 20:59 Atorvastatin 80 Mg Tablet PO 01/20/23 20:59 80 mg QPM EMELY Administration Buprenorphine HCl 4 mg 01/20/22 09:00 01/21/22 09:10 Buprenorphine Hcl 2 Mg Tab.Subl SUBLINGUAL 07/19/22 08:59 4 mg DAILY EMELY Administration Buprenorphine HCl 2 mg 01/20/22 22:00 01/20/22 20:59 Buprenorphine Hcl 2 Mg Tab.Subl SUBLINGUAL 07/19/22 21:59 2 mg HS EMELY Administration Buspirone HCl 10 mg 01/20/22 14:00 01/21/22 14:20 Buspirone 10 Mg Tablet PO 01/20/23 13:59 10 mg TID EMELY Administration Heparin Sodium (Porcine) 4,000 unit 01/20/22 05:32 01/20/22 21:11 Heparin *Protocol Bolus* 5,000 Unit/Ml Vial IV-PUSH 01/22/22 02:00 4,000 unit BOLUS PRN Administration PRN PTT < 40 Heparin Sodium (Porcine) 2,900 unit 01/20/22 05:33 01/21/22 10:30 Heparin *Protocol Bolus* 5,000 Unit/Ml Vial IV-PUSH 01/22/22 02:00 2,900 unit BOLUS PRN Administration PRN PTT 40-53 Hydroxyzine Pamoate 25 mg 01/20/22 06:35 01/21/22 03:13 Hydroxyzine Pamoate 25 Mg Capsule PO 01/20/23 06:34 25 mg TID PRN Administration Anxiety Magnesium Sulfate 2 gm in 50 mls @ 25 mls/hr 01/20/22 04:14 Magnesium Sulf 2gm-*Swfi* IV 01/20/23 04:13 DAILY PRN Magnesium Level < 1.5 Heparin Sodium/Sodium Chloride 25,000 unit in 250 mls @ 9 mls/hr 01/20/22 05:00 01/21/22 10:35 Heparin IV 01/22/22 06:00 Not Given .Q24H EMELY Protocol 900 UNIT/HR Labetalol HCl 5 mg 01/20/22 04:14 Labetalol 100 Mg/20 Ml Vial IV-PUSH 01/20/23 04:13 Q4H PRN Hypertension Linagliptin 5 mg 01/20/22 09:00 01/21/22 09:10 Linagliptin 5 Mg Tablet PO 01/20/23 08:59 5 mg DAILY EMELY Administration Lorazepam 0.5 mg 01/20/22 17:39 01/20/22 21:00 Lorazepam 2 Mg/Ml Vial IV-PUSH 07/19/22 17:38 0.5 mg Q6H PRN Administration Anxiety Lurasidone HCl 120 mg 01/20/22 09:00 01/21/22 09:09 Lurasidone 40 Mg Tablet PO 01/20/23 08:59 120 mg DAILY EMELY Administration Metoprolol Tartrate 50 mg 01/20/22 09:00 01/21/22 09:10 Metoprolol Tartrate 50 Mg Tablet PO 01/20/23 08:59 50 mg BID EMELY Administration Miscellaneous Information 1 each 01/21/22 10:33 Consult To Pharmacy MISCELLANE 01/21/23 10:32 .PHACONSULT PRN ZZ.Pharmacy Consult Protocol Nitroglycerin 0.4 mg 01/20/22 04:14 Nitroglycerin 0.4 Mg Tab.Subl SUBLINGUAL 01/20/23 04:13 Q5M PRN Chest Pain Omeprazole 20 mg 01/20/22 09:00 01/21/22 09:10 Omeprazole 20 Mg Capsule.Dr PO 01/20/23 08:59 20 mg DAILY EMELY Administration Ondansetron HCl 4 mg 01/20/22 04:14 Ondansetron 4 Mg/2 Ml Vial IV-PUSH 01/20/23 04:13 Q8H PRN Nausea And Vomiting Potassium Chloride 20 meq 01/20/22 04:14 Potassium Chloride Er 20 Meq Tab.Er.Prt PO 01/20/23 04:13 DAILY PRN Hypokalemia Potassium Chloride 40 meq 01/20/22 04:14 Potassium Chloride Er 20 Meq Tab.Er.Prt PO 01/20/23 04:13 DAILY PRN Hypokalemia Potassium Chloride 40 meq 01/21/22 10:33 Potassium Chloride Er 20 Meq Tab.Er.Prt PO STAT PRN Hypokalemia Fluticasone/Salmeterol 1 puff 01/20/22 09:00 01/21/22 09:14 Fluticasone/Salmeterol 232-14 Mcg 60 Puff Inhaler INHALATION 01/20/23 08:59 1 puff BID EMELY Administration Sennosides 1 tab 01/20/22 04:14 Sennosides 8.6 Mg Tablet PO 01/20/23 04:13 BID PRN Constipation Sodium Chloride 0 ml 01/20/22 04:14 Sodium Chloride 0.9 % 10 Ml Syringe IV-PUSH 01/20/23 04:13 PRN PRN Flush Sodium Chloride 10 ml 01/20/22 17:39 Sodium Chloride 0.9 % 10 Ml Vial.Pf INJECTION 01/20/23 17:38 Q4H PRN Ativan dilution Sodium Chloride 0 ml 01/21/22 10:33 Sodium Chloride 0.9 % 10 Ml Syringe IV-PUSH 01/21/23 10:32 PRN PRN Flush A&P - Hospitalist Assessment/Plan (1) Chest pain: (2) Anxiety: (3) Nausea and vomiting: (4) Depression: (5) Tobacco abuse: (6) Diabetes: Plan Patient currently chest pain-free She is hemodynamically stable and is afebrile EKG with no acute ischemic changes Troponin however continues to trend up On heparin drip Patient received Brilinta today in the morning Cardiology on board, plan for cardiac cath on Saturday Monitor for signs of bleeding Patient is very emotional and anxious, will increase BuSpar to 3 times daily Give Ativan 0.5 mg IV once A1c 7.3, LDL 111 Continue home meds CODE STATUS full code Documented By: Wes Nunes MD 01/21/221600 Signed By: <Electronically signed by Wes Nunes MD> 01/21/222 [facility] Work Phone: 1(833) 543-660208-21-2022 Progress note Author Waldo Varma [facility] January 21, 2022 10:35am Note Date/Time January 21, 2022 10 :33am [facility] [address] [place] [address] Cardiology Progress Note Signed Patient: Natividad Bonner MR#: [id number] : 1985 Acct:[id number] Age/Sex: 36 / F Adm Date: 2 Loc: 4N Room: [address] [place] [address] Type: ADM INOo Attending Dr: Wes Nunes MD Copies to: ~ Date of Service: 01/21/2022 Subjective Principal diagnosis: Non-ST segment elevation CA Interval history: Patient had a stable and asymptomatic night. No recurrent chest pain. No arrhythmias. I discussed the indications for coronary angiography and the possibility of ad hoc intervention. She and her partner understand. Exam Physical Exam Vital Signs: Temp Pulse Resp BP Pulse Ox O2 Del Method 98.4 F 61 22 103/63 98 Room Air 01/21/22 08:00 01/21/22 08:00 01/21/22 08:00 01/21/22 08:00 01/21/22 08:00 01/21/22 04:56 HEENT Head: normal to inspection Ears: hearing grossly normal bilaterally Nose: external nose normal and nares normal Face and sinus: normal facial exam Mouth: oral mucosae normal and tongue normal Eyes Conjunctivae: conjunctivae normal Sclera: sclerae normal Neck Neck: normal visual inspection Carotids: normal carotid upstroke Lymphatic: no lymphadenopathy noted Chest Chest palpation & inspection: normal inspection of the chest Resp Effort & Inspection: normal respiratory effort Auscultation: clear to auscultation bilaterally Cardio Rate: regular rate Rhythm: regular rhythm Heart Sounds: S1 normal and S2 normal GI Inspection: normal to inspection Palpation: soft Skin General: no rashes or lesions noted Neuro General: patient alert, patient awake and patient oriented x3 Cognition: normal cognition Motor: muscle tone normal throughout Sensory Exam: no sensory deficits noted Objective Labs CBC & Chem 7: 01/21/22 02:57 01/21/22 02:57 Labs: Laboratory Results - last 24 hr 01/20/22 01/20/22 01/20/22 12:44 12:44 19:33 Corrected WBC Uncorrected WBC Count RBC Hgb Hct MCV MCH MCHC RDW Plt Count MPV Neut % (Auto) Lymph % (Auto) [place] % (Auto) Eos % (Auto) Baso % (Auto) Neut # (Auto) Lymph # (Auto) [place] # (Auto) Eos # (Auto) Baso # (Auto) Nucleated RBC % (auto) PT INR APTT 29.8 39.2 H PHA Creatinine Clear Sodium Potassium Chloride Carbon Dioxide BUN Creatinine Est GFR ( Amer) Est GFR (Non-Af Amer) Glucose Calcium Troponin I High Sens 1576 H* 01/21/22 01/21/22 01/21/22 02:57 02:57 02:57 Corrected WBC 10.3 Uncorrected WBC Count 10.3 RBC 4.62 Hgb 14.3 Hct 41.3 MCV 89.4 MCH 30.9 MCHC 34.5 RDW 12.5 Plt Count 278 MPV 7.7 Neut % (Auto) 59.8 Lymph % (Auto) 31.6 [place] % (Auto) 4.6 Eos % (Auto) 2.9 Baso % (Auto) 1.1 Neut # (Auto) 6.2 Lymph # (Auto) 3.3 [place] # (Auto) 0.5 Eos # (Auto) 0.3 Baso # (Auto) 0.1 Nucleated RBC % (auto) 0.0 PT 12.8 INR 1.1 APTT 60.0 H PHA Creatinine Clear 125.27 Sodium 135 L Potassium 3.8 Chloride 103 Carbon Dioxide 22.2 BUN 9 Creatinine 0.70 Est GFR ( Amer) > 60 Est GFR (Non-Af Amer) > 60 Glucose 151 H Calcium 8.9 Troponin I High Sens 01/21/22 09:22 Corrected WBC Uncorrected WBC Count RBC Hgb Hct MCV MCH MCHC RDW Plt Count MPV Neut % (Auto) Lymph % (Auto) [place] % (Auto) Eos % (Auto) Baso % (Auto) Neut # (Auto) Lymph # (Auto) [place] # (Auto) Eos # (Auto) Baso # (Auto) Nucleated RBC % (auto) PT INR APTT 52.0 H PHA Creatinine Clear Sodium Potassium Chloride Carbon Dioxide BUN Creatinine Est GFR ( Amer) Est GFR (Non-Af Amer) Glucose Calcium Troponin I High Sens A&P - Cardiology (1) Non-ST elevation (NSTEMI) myocardial infarction: Assessment/Problem Details: For coronary angiogram Saturday with Dr. Sow. Possible ad hoc intervention was discussed. Code(s): I21.4 - Non-ST elevation (NSTEMI) myocardial infarction Status: Acute Plan As above. N.p.o. after midnight. Documented By: Waldo Varma MD 103 Signed By: <Electronically signed by MD Waldo Varma> 01/21/22 [address] [facility] Work Phone: 1(462) 819-297108-20-2022 Progress note Author Wes [facility] January 20, 2022 4:45pm Note Date/Time January 20, 2022 4: 45pm [facility] [address] [place] [address] Hospitalist Progress Note Signed Patient: Natividad Bonner MR#: [id number] : 1985 Acct:[id number] Age/Sex: 36 / F Adm Date: 2 Loc: 4N Room: [address] [place] [address] Type: ADM INOo Attending Dr: Wes Nunes MD Copies to: ~ Date of Service: 01/20/2022 Subjective Subjective Narrative: Patient seen and examined. Patient is awake, alert and oriented x3. She deniesany chest pain, shortness of breath, cough. States that she does not like hospitals and is very anxious and does not want to stay in the hospital and is requesting to go home. Exam Physical Exam Vital Signs: Temp Pulse Resp BP Pulse Ox O2 Del Method 98.1 F 74 16 114/70 98 Room Air 01/20/22 15:49 01/20/22 15:49 01/20/22 15:49 01/20/22 15:49 01/20/22 15:49 01/20/22 15:49 Narrative: General: Awake, alert, oriented x3 not in acute distress HEENT: Normocephalic, atraumatic, PERRLA, normal mucosa Cardiovascular: Regular rate and rhythm , S1-S2 heard, no murmurs or gallops Lungs: No wheezing or rhonchi heard Gastrointestinal: Soft, nontender, bowel sounds heard Extremities: No edema Neurological: no sensory or motor deficit Skin: Dry and warm, no rashes or lesions Psych: Normal mood and affect Objective Lab Results CBC & Chem 7: 01/20/22 06:04 01/20/22 06:04 Microbiology Results Microbiology 01/20/22 04:34 Nasal SARS Antigen (LFIA) - Final Meds Allergies and Active Meds Allergies metformin Adverse Reaction (Verified 01/20/22 10:12) Abdominal Pain Active Meds: Active Medications Generic Name Dose Route Start Last Admin Trade Name Freq PRN Reason Stop Dose Admin Acetaminophen 650 mg 01/20/22 04:14 01/20/22 09:45 Acetaminophen 325 Mg Tablet PO 01/20/23 04:13 650 mg Q6HR PRN Administration Pain Scale 1 - 3 or fever Albuterol 2 puff 01/20/22 04:32 Albuterol Hfa 60 Puff/8 Gram Inhaler INHALATION 01/20/23 04:31 Q6H PRN sob Albuterol 2 puff 01/20/22 08:00 01/20/22 16:06 Albuterol Hfa 60 Puff/8 Gram Inhaler INHALATION 01/20/23 07:59 2 puff QID.RESP EMELY Administration Aspirin 81 mg 01/20/22 09:00 01/20/22 09:46 Aspirin 81 Mg Tab.Chew PO 01/20/23 08:59 81 mg DAILY EMELY Administration Atorvastatin Calcium 80 mg 01/20/22 21:00 Atorvastatin 80 Mg Tablet PO 01/20/23 20:59 QPM EMELY Buprenorphine HCl 4 mg 01/20/22 09:00 01/20/22 09:47 Buprenorphine Hcl 2 Mg Tab.Subl SUBLINGUAL 07/19/22 08:59 4 mg DAILY EMELY Administration Buprenorphine HCl 2 mg 01/20/22 22:00 Buprenorphine Hcl 2 Mg Tab.Subl SUBLINGUAL 07/19/22 21:59 HS EMELY Buspirone HCl 10 mg 01/20/22 14:00 01/20/22 13:31 Buspirone 10 Mg Tablet PO 01/20/23 13:59 10 mg TID EMELY Administration Heparin Sodium (Porcine) 4,000 unit 01/20/22 05:32 01/20/22 13:31 Heparin *Protocol Bolus* 5,000 Unit/Ml Vial IV-PUSH 01/20/23 05:31 4,000 unit BOLUS PRN Administration PRN PTT < 40 Heparin Sodium (Porcine) 2,900 unit 01/20/22 05:33 Heparin *Protocol Bolus* 5,000 Unit/Ml Vial IV-PUSH 01/20/23 05:32 BOLUS PRN PRN PTT 40-53 Hydroxyzine Pamoate 25 mg 01/20/22 06:35 Hydroxyzine Pamoate 25 Mg Capsule PO 01/20/23 06:34 TID PRN Anxiety Magnesium Sulfate 2 gm in 50 mls @ 25 mls/hr 01/20/22 04:14 Magnesium Sulf 2gm-*Swfi* IV 01/20/23 04:13 DAILY PRN Magnesium Level < 1.5 Heparin Sodium/Sodium Chloride 25,000 unit in 250 mls @ 9 mls/hr 01/20/22 05:00 01/20/22 13:32 Heparin IV 01/20/23 04:59 1,300 unit/hr .Q24H EMEYL 13 mls/hr Titration Protocol 900 UNIT/HR Labetalol HCl 5 mg 01/20/22 04:14 Labetalol 100 Mg/20 Ml Vial IV-PUSH 01/20/23 04:13 Q4H PRN Hypertension Linagliptin 5 mg 01/20/22 09:00 01/20/22 09:45 Linagliptin 5 Mg Tablet PO 01/20/23 08:59 5 mg DAILY EMELY Administration Lurasidone HCl 120 mg 01/20/22 09:00 01/20/22 09:45 Lurasidone 40 Mg Tablet PO 01/20/23 08:59 120 mg DAILY EMELY Administration Metoprolol Tartrate 50 mg 01/20/22 09:00 01/20/22 09:45 Metoprolol Tartrate 50 Mg Tablet PO 01/20/23 08:59 50 mg BID EMELY Administration Nitroglycerin 0.4 mg 01/20/22 04:14 Nitroglycerin 0.4 Mg Tab.Subl SUBLINGUAL 01/20/23 04:13 Q5M PRN Chest Pain Omeprazole 20 mg 01/20/22 09:00 01/20/22 09:45 Omeprazole 20 Mg Capsule.Dr PO 01/20/23 08:59 20 mg DAILY EMELY Administration Ondansetron HCl 4 mg 01/20/22 04:14 Ondansetron 4 Mg/2 Ml Vial IV-PUSH 01/20/23 04:13 Q8H PRN Nausea And Vomiting Potassium Chloride 20 meq 01/20/22 04:14 Potassium Chloride Er 20 Meq Tab.Er.Prt PO 01/20/23 04:13 DAILY PRN Hypokalemia Potassium Chloride 40 meq 01/20/22 04:14 Potassium Chloride Er 20 Meq Tab.Er.Prt PO 01/20/23 04:13 DAILY PRN Hypokalemia Fluticasone/Salmeterol 1 puff 01/20/22 09:00 01/20/22 07:47 Fluticasone/Salmeterol 232-14 Mcg 60 Puff Inhaler INHALATION 01/20/23 08:59 1 puff BID EMELY Administration Sennosides 1 tab 01/20/22 04:14 Sennosides 8.6 Mg Tablet PO 01/20/23 04:13 BID PRN Constipation Sodium Chloride 0 ml 01/20/22 04:14 Sodium Chloride 0.9 % 10 Ml Syringe IV-PUSH 01/20/23 04:13 PRN PRN Flush A&P - Hospitalist Assessment/Plan (1) Chest pain: (2) Anxiety: (3) Nausea and vomiting: (4) Depression: (5) Tobacco abuse: (6) Diabetes: Plan Patient currently chest pain-free She is hemodynamically stable and is afebrile EKG with no acute ischemic changes Troponin however continues to trend up On heparin drip Patient received Brilinta today in the morning Cardiology on board, plan for cardiac cath on Saturday Monitor for signs of bleeding Patient is very emotional and anxious, will increase BuSpar to 3 times daily Give Ativan 0.5 mg IV once A1c 7.3, LDL 111 Continue home meds CODE STATUS full code Documented By: Wes Nunes MD 01/20/221641 Signed By: <Electronically signed by Wes Nunes MD> 01/20/22 [address] [facility] Work Phone: 1(994) 482-510308-20-2022 Consult note Author Waldo Varma [facility] January 20, 2022 12:45pm Note Date/Time January 20, 2022 12 :45pm [facility] [address] [place] [address] Cardiology Consult Note Signed Patient: Natividad Bonner MR#: [id number] : 1985 Acct:[id number] Age/Sex: 36 / F Adm Date: 2 Loc: Room: [address] [place] [address] Type: ADM INOo Attending Dr: Wes Nunes MD Copies to: MD Bill Silver DO William Patrick McGuinn, MD~ Cardiology HPI History of Present Illness Consult Date: 01/20/22 Reason for Consult: Non-ST segment elevation myocardial infarction HPI: Ms. Bonner is a 36 year old female seen for the above She is an individual with no known history of heart disease. Saturday morning shehad chest discomfort and that lasted all day and because of this she ultimately went to the emergency room in [place]. First troponin normal but second troponin elevated because of this she was transferred here. Subsequent troponins have continued to rise but her pain went away She acknowledges a history of treated diabetes and hypertension. She is a smoker. Lipid status unknown. She states family does not have coronary disease. The patient was advised that she has acute coronary syndrome and/or non-ST segment elevation CA and I recommend pharmacologic stabilization and subsequent angiographic evaluation. She is in agreement. Review of Systems Review of Systems All other systems reviewed & are negative unless noted below or in HPI Constitutional Constitutional: Reports system reviewed and no additional complaints, except as documented Eyes Eyes: Reports system reviewed and no additional complaints, except as documented ENT Ears, Nose, Mouth, and Throat: Reports system reviewed and no additional complaints, except as documented Cardiovascular Cardiovascular: Reports as per HPI Respiratory Respiratory: Reports system reviewed and no additional complaints, except as documented Gastrointestinal Gastrointestinal: Reports system reviewed and no additional complaints, except as documented Genitourinary Genitourinary: Reports system reviewed and no additional complaints, except as documented Musculoskeletal Musculoskeletal: Reports system reviewed and no additional complaints, except asdocumented Integumentary/Breasts Skin/Breast: Reports system reviewed and no additional complaints, except as documented Neurologic Neurologic: Reports system reviewed and no additional complaints, except as documented Psychiatric Psychiatric: Reports system reviewed and no additional complaints, except as documented Endocrine Endocrine: Reports system reviewed and no additional complaints, except as documented Hematologic/Lymphatic Hematologic/Lymphatic: Reports system reviewed and no additional complaints, except as documented Allergic/Immunologic Allergic/Immunologic: Reports system reviewed and no additional complaints, except as documented PMFSH Vaccinated for COVID-19?: No Medical History (Updated 01/20/22 @ 12:45 by Waldo Varma MD) Anxiety Asthma Depression Diabetes Hernia Hypertension Opioid abuse Surgical History History of tubal ligation Social History Smoking Status: Current every day smoker Tobacco Type: cigarettes Substance Use Type: Marijuana Substance Abuse Comment: last smoked marijuana 01/19 Meds Medications and Allergies Allergies metformin Adverse Reaction (Verified 01/20/22 10:12) Abdominal Pain Home Medications albuterol sulfate 90 mcg/actuation aerosol inhaler 2 puff inhalation Q6H PRN sob03/29/20 [History Confirmed 01/20/22] atenolol 50 mg tablet 50 mg PO DAILY 03/29/20 [History Confirmed 01/20/22] hydroxyzine pamoate 50 mg capsule (Vistaril) 25 mg PO TID PRN Anxiety 10/27/20 [History Confirmed 01/20/22] mometasone-formoterol HFA 200 mcg-5 mcg/actuation aerosol inhaler (Dulera) 2 puff inhalation BID 03/29/20 [History Confirmed 01/20/22] albuterol sulfate 90 mcg/actuation aerosol inhaler (ProAir HFA) 2 puff inhalation Q6HR 01/20/22 [History Confirmed 01/20/22] buprenorphine 2 mg-naloxone 0.5 mg sublingual tablet 1 tab sublingual HS 01/20/22 [History Confirmed 01/20/22] buprenorphine 4 mg-naloxone 1 mg sublingual film (Suboxone) 1 film sublingual DAILY 01/20/22 [History Confirmed 01/20/22] buspirone 10 mg tablet 10 mg PO 2XD 01/20/22 [History Confirmed 01/20/22] lurasidone 120 mg tablet (Latuda) 120 mg PO DAILY 01/20/22 [History Confirmed 01/20/22] sitagliptin 100 mg tablet (Januvia) 100 mg PO DAILY 01/20/22 [History Confirmed 01/20/22] Exam Physical Exam Vital Signs: Temp Pulse Resp BP Pulse Ox O2 Del Method 97.9 F 64 20 124/80 94 L Room Air 01/20/22 12:00 01/20/22 12:00 01/20/22 12:00 01/20/22 12:00 01/20/22 12:00 01/20/22 12:00 HEENT Head: normal to inspection Ears: hearing grossly normal bilaterally Nose: external nose normal and nares normal Face and sinus: normal facial exam Mouth: oral mucosae normal and tongue normal Eyes Conjunctivae: conjunctivae normal Sclera: sclerae normal Neck Neck: normal visual inspection Carotids: normal carotid upstroke Lymphatic: no lymphadenopathy noted Chest Chest palpation & inspection: normal inspection of the chest Resp Effort & Inspection: normal respiratory effort Auscultation: clear to auscultation bilaterally Cardio Rate: regular rate Rhythm: regular rhythm Heart Sounds: S1 normal and S2 normal GI Inspection: normal to inspection Palpation: soft Skin General: no rashes or lesions noted Neuro General: patient alert, patient awake and patient oriented x3 Cognition: normal cognition Motor: muscle tone normal throughout Sensory Exam: no sensory deficits noted Results Labs CBC & CMP: 01/20/22 06:04 01/20/22 06:04 Lab results: Lipids 01/20/22 Range/Units 06:04 Triglycerides 252 H (35-149) mg/dL Cholesterol 196 (140-200) mg/dL HDL Cholesterol 35 (35-85) mg/dL Cholesterol/HDL Ratio 5.6 (<5.0) CBC 01/20/22 Range/Units 06:04 RBC 4.55 (3.60-5.00) x10E6/uL Hgb 14.1 (11.8-15.4) g/dL Hct 40.5 (34.0-46.4) % Plt Count 350 (150-450) x10E3/uL Neut # (Auto) 8.6 H (1.8-7.7) x10E3/uL Lymph # (Auto) 2.8 (1.00-4.8) x10E3/uL [place] # (Auto) 0.6 (0.0-0.8) x10E3/uL Eos # (Auto) 0.2 (0.0-0.45) x10E3/uL Baso # (Auto) 0.1 (0.0-0.2) x10E3/uL Comprehensive Metabolic Panel 01/20/22 Range/Units 06:04 Sodium 136 (136-146) mmol/L Potassium 3.7 (3.5-5.1) mmol/L Chloride 103 (95-114) mmol/L Carbon Dioxide 24.3 (22.0-30.0) mmol/L BUN 10 (9-23) mg/dL Creatinine 0.79 (0.44-1.03) mg/dL Glucose 196 H (70-100) mg/dL Calcium 9.5 (8.2-10.2) mg/dL Intake and Output 01/19/22 01/20/22 01/20/22 23:59 07:59 15:59 Intake Total 200 / 200 Output Total 150 / 150 Balance 50 / 50 Intake: Oral 200 / 200 Output: Urine 150 / 150 Other: # Bowel Movements 0 Weight 106.9 kg Date of Last Bowel Movement 01/19/22 01/19/22 Patient Weight 01/20/22 23:59 Weight 106.9 kg Lab 01/20/22 06:04 PT 13.8 H INR 1.2 APTT 29.7 A&P - Cardiology (1) Non-ST elevation (NSTEMI) myocardial infarction: Assessment/Problem Details: Patient now appears stable but in light of her clinical presentation angiographic evaluation is indicated. I will confer with interventional cardiology. If possible should be done as an add-on but otherwise Saturday morning. Code(s): I21.4 - Non-ST elevation (NSTEMI) myocardial infarction Plan Aspirin heparin beta-blockers nitrates as necessary and statin therapy. Will schedule angiogram. Documented By: Waldo Varma MD [id number] Signed By: <Electronically signed by MD Waldo Varma> 01/20/22 1245 [facility] Work Phone: 1(236) 137-728408-20-2022 History and physical note Author Jose Lan [facility] January 20, 2022 4:57am Note Date/Time January 20, 2022 4: 53am [facility] [address] [place] [address] Hospitalist H&P Signed Patient: Natividad Bonner MR#: [id number] : 1985 Acct:[id number] Age/Sex: 36 / F Adm Date: 2 Loc: 4 Room: [address] [place] [address] Type: ADM IN Attending Dr: Jose Lan DO Copies to: DO Bill Ac DO~ HPI DATE OF EXAMINATION: 01/20/22 CHIEF COMPLAINT: Chest pain HISTORY OF PRESENT ILLNESS: Ms. Bonner is a 36-year-old female with a past medical history of depression, diabetes, hypertension, anxiety who presents to our hospital as a transfer from [place] with a chief complaint of chest pain. She states she woke up this morning and had to had 10 chest pain located in the center of her chest which feels like she is being sat on, she denies any exertional component to this. She denies any relief to this with resting. When she went to the [facility] emergency room her initial troponin was 8, EKG was normal sinus rhythm. Redraw troponin approximately 2 hours later showed an increase to 125. The patient remained to have the consistent chest pain, she did get some nitroglycerin which relieved the pain temporarily. Upon arrival to our hospital she continues to have the same chest pain and she is also quite anxious, when discussing her elevated heart enzymes that Fermin told her about she became very tearful. She points to the center of her sternum, she denies any radiating symptoms to the neck, jaw, shoulder. She denies any changes in the pain with deep inspiration. She denies any relation to food. She does have a history of hypertension and diabetes, she does smoke 1 pack of cigarettes per day, she has a family history notable for coronary artery diseasein her grandparents, she is unknown about her parents. Review of Systems Review of Systems Review of systems: Constitutional: Denies body aches, chills, fatigue Eyes: Denies any blurry or double vision CV: See HPI, denies irregular rhythm, shortness of breath, leg swelling Respiratory, denies shortness of breath, cough, wheeze, pain with deep inspiration GI: Denies any nausea, vomiting, diarrhea, constipation, changes in bowel habitsoverall MSK: Denies joint pain, denies joint swelling, denies back pain, denies weakness Neurologic: Denies confusion, denies dizziness, denies headaches, denies lack coordination Psychiatric: Denies depression, denies behavioral changes Hematology: Denies easy bruising, denies easy bleeding PMFSH Vaccinated for COVID-19?: No Medical History (Updated 01/20/22 @ 04:52 by Jose Lan DO) Anxiety Asthma Depression Diabetes Hernia Hypertension Opioid abuse Surgical History History of tubal ligation Social History Smoking Status: Current every day smoker Tobacco Type: cigarettes Substance Use Type: Marijuana Substance Abuse Comment: last smoked marijuana 01/19 Meds Medications and Allergies Allergies No Known Allergies Allergy (Verified 07/09/21 22:18) Home Medications albuterol sulfate 90 mcg/actuation aerosol inhaler 2 puff inhalation Q6H PRN sob03/29/20 [History Confirmed 01/20/22] atenolol 50 mg tablet 50 mg PO DAILY 03/29/20 [History Confirmed 01/20/22] hydroxyzine pamoate 50 mg capsule (Vistaril) 50 mg PO TID PRN Anxiety 03/29/20 [History Confirmed 01/20/22] mometasone-formoterol HFA 200 mcg-5 mcg/actuation aerosol inhaler (Dulera) 2 puff inhalation BID 03/29/20 [History Confirmed 01/20/22] trazodone 50 mg tablet 50 mg PO HS PRN Sleep 03/29/20 [History Confirmed 04/04/20] nicotine 21 mg/24 hr daily transdermal patch 1 ea transdermal DAILY #30 ea 04/08/20 [Rx] metoclopramide HCl 5 mg tablet (Reglan) 5 mg PO QAC #14 tabs 07/10/21 [Rx] ondansetron 4 mg disintegrating tablet 4 mg PO Q6H PRN nausea and vomiting #7 tabs 07/10/21 [Rx] albuterol sulfate 90 mcg/actuation aerosol inhaler (ProAir HFA) 2 puff inhalation Q6HR 01/20/22 [History Confirmed 01/20/22] lurasidone 120 mg tablet (Latuda) 120 mg PO DAILY 01/20/22 [History Confirmed 01/20/22] metformin 500 mg tablet,extended release 24 hr 100 mg PO DAILY 01/20/22 [History Confirmed 01/20/22] quetiapine 50 mg tablet (Seroquel) 50 mg PO HS 01/20/22 [History] sitagliptin 100 mg tablet (Januvia) 100 mg PO DAILY 01/20/22 [History Confirmed 01/20/22] venlafaxine 150 mg capsule,extended release 24 hr (Effexor XR) 150 mg PO QHS 01/20/22 [History] Exam Physical Exam Vital Signs: Temp Pulse Resp BP Pulse Ox O2 Del Method 97.8 F 72 18 137/84 96 Room Air 01/20/22 04:19 01/20/22 04:19 01/20/22 04:19 01/20/22 04:19 01/20/22 04:19 01/20/22 04:19 Narrative: General: Awake alert, no acute distress, very tearful in the room while discussing her symptoms HEENT: head atraumatic, normocephalic, moist mucous membranes, normal nose and ears, no throat lesions, normal conjunctiva Neck: supple no masses, no lymphadenopathy CVS: regular rate and rhythm, no murmurs or gallops Respiratory: clear to auscultation bilaterally, no wheezing or crackles, symmetric expansion GI: soft, nondistended, nontender, positive bowel sounds with no organomegaly Extremity: moves all extremities, no restrictions of movements, no calf tenderness, no edema Neuro: AOx3, CN II-VII intact. Moves all extremities in all planes of motion. Skin: dry, intact no rashes or lesions A&P - Hospitalist Assessment/Plan (1) Chest pain: Plan: ? Admit to telemetry ? Check CBC, BMP, troponin ? Patient arrived to our hospital on a heparin GTT for diagnosed NSTEMI at [facility] based on troponin going from 8 to 125 ? Instructed RNs to check PTT before continuing heparin GTT here ? TTE in the morning ? EKG now ? Due to her nausea and vomiting, green frog suspension ordered to rule out GI causes ? Nitroglycerin as needed ? Baby aspirin daily ? Her OSCAR score is 2 due to her risk factors and positive troponin (2) Anxiety: Plan: ? Home Vistaril continued (3) Nausea and vomiting: Plan: ? See above ? Zofran as needed and omeprazole daily (4) Depression: Plan: Home medications continued (5) Tobacco abuse: Plan: Nicotine patch ordered (6) Diabetes: Plan: Home medications continued Plan ? DVT prophylaxis with heparin GTT ? Diabetic and cardiac diet ? Full code Documented By: Jose Lan DO 01/20/22441 Signed By: <Electronically signed by Jose Lan DO> 01/20/22 0450 [facility] Work Phone: 1(149) 936-217805-13-2022 Evaluation note* Encounter Date Diagnosis Assessment Notes Treatment Notes Treatment Clinical Notes October, Type 2 diabetes mellitus with hyperglycemia, without long-term current use of insulin (ICD-10 - E11.65) [facility] Other 03-14-2022 Evaluation note* Encounter Date Diagnosis Assessment Notes Treatment Notes Treatment Clinical Notes Aug, Type 2 diabetes mellitus with hyperglycemia, without long-term current use of insulin (ICD-10 - E11.65) [facility] Other 02-10-2022 Evaluation note* Encounter Date Diagnosis Assessment Notes Treatment Notes Treatment Clinical Notes Jul, Elevated fasting blood sugar (ICD-10 - R73.01) Jul, Type 2 diabetes mellitus with hyperglycemia, without long-term current use of insulin (ICD-10 - E11.65) Discussed diet/exercise and starting metformin. She declined an order for diabetes education so I recommended her to use the [place] website. We discussed the importance of taking Metformin with food she will call if she has any side effects Jul, RIVAS (generalized anxiety disorder) (ICD-10 - F41.1) We will start Escitalopram while she waits to get in with counseling and recovery. We discussed the common side effects and that it often takes 3+ weeks to see benefit Jul, Moderate persistent asthma without complication (ICD-10 - J45.40) Hopefully she can quit smoking once her anxiety improves, increase Dulera to the 200/5 due to uncontrolled symptoms Jul, Essential (primary) hypertension (ICD-10 - I10) Continue atenolol for now, may switch to ACEI/ARB in future [facility] Other 08-23-2021 Hospital Discharge instructions* Instructions* Neelima Dutton DO - 01/23/2021 Continue taking Motrin and Tylenol for additional pain. Call and follow-up with your family doctor soon as possible. Return to the emergency department for new, worsening or worrisome symptoms which include but are not limited to increased pain, vomiting and fevers. [facility] Work Phone: discharge summary Author Yash Garvey [facility] January 22, 2022 4:48pm Note Date/Time January 22, 2022 2: 57pm [facility] [address] [place] [address] Discharge Summary Signed Patient: Natividad Bonner MR#: [id number] : 1985 Acct:[id number] Age/Sex: 36 / F Adm Date: 2 Loc: 4N Room: 2W9274-[address]: Yash Garvey MD Copies to: MD Bill Alfaro, DO~ Providers Date of Discharge: 01/22/22 Discharging Provider: Yash Garvey Primary Care Provider: Bill Dan Consults: 01/20/22 04:20 Consult to Occupational Therapy Routine Consult to Physical Therapy Routine 01/20/22 10:05 Consult to Cardiology Routine Discharge Diagnosis Final Diagnosis Final Discharge Diagnosis: Non-STEMI Chronic medical comorbidities Diabetes mellitus type 2 Asthma Anxiety depression Opiate abuse Obesity class III BMI 43 Summary Hospital Course Hospital course: Patient is a 36-year-old female, with a number of medical and psychiatric comorbidities noted above, who presented to [place] ED with complaints of chest pain on January 28 of this year. From there she was transferred to our facility for evaluation and treatment. Serial troponin measurements were consistent with a non-ST elevation myocardial infarction.Patient was treated with antiplatelets, anticoagulants, was seen by cardiology service, and on January 22 she underwent coronary angiogram. There was no evidence of any severe obstructive coronary artery disease. Her symptoms resolved and she was discharged home in stable condition on January 22. Aspirin therapy was initiated and will be continued long-term. Statin therapy was also initiated. Metformin was increased and she will continue otherregimen as noted below. She will be followed by her PCP and cardiology in the outpatient setting. Time Spent with Patient Time spent providing/coordinating discharge services (# min): 25 Surgeries and Procedures Operation Date: 01/22/22 08:30 Actual Procedures p [facility] Angio - W William Sow, DO Diagnostic Studies Completed and Pending Studies Pending studies at discharge: 01/21/22 10:33 COVID-19 Antigen Stat 01/23/22 05:00 Basic Metabolic Panel [CHEM] IN AM 01/24/22 05:00 Basic Metabolic Panel [CHEM] IN AM Labs on day of discharge: 01/22/22 04:35: APTT 61.9 H 01/22/22 04:35: PHA Creatinine Clear 121.72, Sodium 134 L, Potassium 3.7, Chloride 103, Carbon Dioxide 22.5, BUN 10, Creatinine 0.72, Est GFR ( Amer) > 60, Est GFR (Non-Af Amer) > 60, Glucose 171 H, Calcium 8.8 01/21/22 22:22: APTT 62.9 H 01/21/22 16:36: APTT 67.2 H Exam Physical Exam Vital Signs: Temp Pulse Resp BP Pulse Ox O2 Del Method 98.0 F 69 16 115/64 97 Room Air 01/22/22 12:10 01/22/22 13:35 01/22/22 12:10 01/22/22 13:35 01/22/22 13:35 01/22/22 13:35 Discharge Plan Discharge Plan Patient Disposition: Home Activity: Other Comment: Please see Cardiac discharge instructions for activity restrictions Diet: Low-Sodium and Low-Cholesterol Additional Instructions: DISCHARGE INSTRUCTIONS FOR CARDIAC CIRCULAR KNITTER PHONE NUMBER OF YOUR PHYSICIAN: [phone] PROCEDURE: Heart Cath The following instructions have been prepared to help you care for yourself, or be cared for upon your return home. 1. You were given conscious sedation. Do not operate a vehicle, power tools, make important decisions, or drink alcohol for 24 hours. You might be drowsy or light headed. Return to the Emergency Room if you have trouble breathing, walking or nausea and vomiting. 2. FOR BLEEDING: Apply continuous pressure to the site and call 911. 3. Operative Site Care: Keep the dressing clean and dry. You may change the dressing only if soiled or wet. You may remove the dressing the following morning. You may wash over the puncture site in the shower. If the puncture site is at the wrist no soaking for 3 days. Some bruising or slight swelling may be present. -Signs of infection are redness, warmth, swelling, getting more sore, colored drainage, fever or chills. -Should the arm or leg become cold, numb, blue or white, call the global compensation analyst immediately. 4. ACTIVITY: You are advised to go directly home from the hospital. Restrict your activities for the rest of the day. Resume light or normal activities tomorrow. Do not engage in any activity that will stress the puncture site. Avoid heavy lifting (over 15 lbs.), straining or bending at the catheter site for 48 hours after discharge. If the puncture site is at the wrist do not manipulate wrist for 24 hours and no lifting more than 3 lbs for 3 days. 5. DIET:You may eat your regular diet when you desire. 6. MEDICATIONS: Resume your daily prescription schedule. Prescriptions may be sent with you if needed. Use as directed. When taking pain medications, you may experience dizziness or drowsiness. Do not drink alcohol or drive when taking pain medications. 7. If you should experience episodes of angina e.g. chest discomfort, heaviness, tightness, pressure, burning, with or without radiation to the neck, jaws, arms, or back- Use 1 Nitrostat under your tongue every 5-10 minutes, and up to 3 tablets. If no relief- Call 911 and go to the nearest Emergency Room. -Notify the office for recurrent angina, chest pain or other concerns. You may NOT drive yourself home! Follow the medication instructions provided on your discharge. If the dosages and instructions on this sheet differ from the dosage and instructions on the bottle, follow the instructions on the bottle. [facility] is not responsible for incorrect prescription information provided by the patient during their visit. Do not stop your medications without consulting your health care provider. Please take the list with you to your next doctor's appointment. Instructions: Heart Attack (DC) Stand Alone Forms: Work/School Release Form Prescriptions: New aspirin 81 mg capsule 81 mg PO DAILY Qty: 30 0RF atorvastatin 40 mg tablet 40 mg PO DAILY Qty: 30 6RF metformin 500 mg tablet extended release 24hr 500 mg PO BID Qty: 30 0RF Continued atenolol 50 mg tablet 50 mg PO DAILY Label Comments: TAKE 1 TABLET BY MOUTH ONCE DAILY Dulera 200-5 mcg/actuation HFA aerosol inhaler 2 puff INHALATION BID Label Comments: INHALE 1 PUFF BY MOUTH TWICE DAILY albuterol sulfate 90 mcg/actuation HFA aerosol inhaler 2 puff INHALATION Q6H PRN (Reason: sob) Label Comments: INHALE 2 PUFFS BY MOUTH EVERY 6 HOURS NEEDED hydroxyzine pamoate [Vistaril] 50 mg capsule 25 mg PO TID PRN (Reason: Anxiety) Label Comments: TAKE 1 CAPSULE BY MOUTH THREE TIMES DAILY NEEDED FOR ANXIETY albuterol sulfate [ProAir HFA] 90 mcg/actuation HFA aerosol inhaler 2 puff INHALATION Q6HR Januvia 100 mg tablet 100 mg PO DAILY Latuda 120 mg tablet 120 mg PO DAILY buprenorphine-naloxone 2-0.5 mg Tablet, Sublingual 1 tab SUBLINGUAL HS buprenorphine-naloxone [Suboxone] 4-1 mg Film 1 film SUBLINGUAL DAILY buspirone 10 mg tablet 10 mg PO 2XD Follow Up: Suzette Sow DO [Active Staff - D.O.] - Bill Dan DO [Primary Care Provider] - 01/25/22 4:00 pm (Post hospital follow up appointment. Please call and reschedule if needed.) Documented By: Yash Garvey MD 01/22/22 1452 Signed By: <Electronically signed by Yash Garvey MD> 01/22/22 1648 [facility] Work Phone: Evaluation note* Diagnosis Left flank pain- Primary Abdominal pain, unspecified site documented in this encounter [employer] Work Phone: evaluation note* Diagnosis Onset Date Resolution Status Anxiety acute Chest pain acute Depression acute Diabetes acute Nausea and vomiting acute Non-ST elevation (NSTEMI) myocardial infarction acute Tobacco abuse acute [facility] Work Phone: Evaluation noteNo InformationNort [employer] Other Evaluation noteNo assessment information available [facility] Work Phone: Evaluation note* Diagnosis Screening for malignant neoplasm of cervix Screening for malignant neoplasm of the cervix Encounter for gynecological examination without abnormal finding Encounter for screening mammogram for malignant neoplasm of breast Abnormal vaginal bleeding Other specified noninflammatory disorder of vagina documented in this encounter [facility] HealthcareEvaluation note* Diagnosis Syndrome X (cardiac) ([facility])- Primary Type 2 diabetes mellitus without complication, with long-term current use of insulin (Multi) Mild CAD Mixed hyperlipidemia Essential hypertension Unspecified essential hypertension Current every day smoker BMI 45.0-49.9, adult (Multi) NSTEMI, initial episode of care (Multi) Pre-operative clearance Unspecified pre-operative examination documented in this encounter [facility] Work Phone: Evaluation note* Diagnosis Type 2 diabetes mellitus with hyperglycemia, with long-term current use of insulin ([facility])- Primary documented in this encounter [facility] HealthcareEvaluation note* Diagnosis Type 2 diabetes mellitus with hyperglycemia, with long-term current use of insulin ([facility])- Primary documented in this encounter [facility] HealthcareEvaluation note* Diagnosis Type 2 diabetes mellitus with hyperglycemia, with long-term current use of insulin ([facility])- Primary Vitamin D deficiency Primary hypertension ([facility]/H[facility]) Unspecified essential hypertension Hyperlipemia, mixed ([facility]) Mixed hyperlipidemia Encounter for dietary consultation Class 3 severe obesity due to excess calories with serious comorbidity and body mass index (BMI) of 45.0 to 49.9 in adult ([facility]) documented in this encounter [facility] HealthcareEvaluation note* Diagnosis Type 2 diabetes mellitus with hyperglycemia, with long-term current use of insulin ([facility])- Primary documented in this encounter [facility] HealthcareEvaluation note* Diagnosis Type 2 diabetes mellitus with hyperglycemia, with long-term current use of insulin ([facility]) documented in this encounter [facility] HealthcareEvaluation note* Diagnosis Bronchitis with asthma, acute ([facility])- Primary Cough, unspecified type documented in this encounter [facility] HealthcareEvaluation note* Diagnosis Syndrome X (cardiac)- Primary Type 2 diabetes mellitus without complication, with long-term current use of insulin Mild CAD Mixed hyperlipidemia Essential hypertension Unspecified essential hypertension Current every day smoker BMI 45.0-49.9, adult (Multi) NSTEMI, initial episode of care (Multi) Pre-operative clearance Unspecified pre-operative examination ASHD (arteriosclerotic heart disease) Coronary atherosclerosis of unspecified type of vessel, [place] or graft Type 2 diabetes mellitus with other specified complication, with long-term current use of insulin Current every day smoker BMI 45.0-49.9, adult (Multi) Localized edema Edema Syndrome X (cardiac) documented in this encounter [facility] Work Phone: History general Narrative - Reported* Type Description Date Medical History HTN Medical History ANXIETY Medical History DEPRESSION Medical History asthma Surgical History Hernia Surgeries Surgical History Tubal Ligation Hospitalization History SEE ABOVE [employer] [facility] Other Hospital Discharge instructions Additional Instructions DISCHARGE INSTRUCTIONS FOR CARDIAC CIRCULAR KNITTER PHONE NUMBER OF YOUR PHYSICIAN: [phone] PROCEDURE: Heart Cath The following instructions have been prepared to help you care for yourself, or be cared for upon your return home. 1. You were given conscious sedation. Do not operate a vehicle, power tools, make important decisions, or drink alcohol for 24 hours. You might be drowsy or light headed. Return to the Emergency Room if you have trouble breathing, walking or nausea and vomiting. 2. FOR BLEEDING: Apply continuous pressure to the site and call 911. 3. Operative Site Care: Keep the dressing clean and dry. You may change the dressing only if soiled or wet. You may remove the dressing the following morning. You may wash over the puncture site in the shower. If the puncture site is at the wrist no soaking for 3 days. Some bruising or slight swelling may be present. -Signs of infection are redness, warmth, swelling, getting more sore, colored drainage, fever or chills. -Should the arm or leg become cold, numb, blue or white, call the global compensation analyst immediately. 4. ACTIVITY: You are advised to go directly home from the hospital. Restrict your activities for the rest of the day. Resume light or normal activities tomorrow. Do not engage in any activity that will stress the puncture site. Avoid heavy lifting (over 15 lbs.), straining or bending at the catheter site for 48 hours after discharge. If the puncture site is at the wrist do not manipulate wrist for 24 hours and no lifting more than 3 lbs for 3 days. 5. DIET:You may eat your regular diet when you desire. 6. MEDICATIONS: Resume your daily prescription schedule. Prescriptions may be sent with you if needed. Use as directed. When taking pain medications, you may experience dizziness or drowsiness. Do not drink alcohol or drive when taking pain medications. 7. If you should experience episodes of angina e.g. chest discomfort, heaviness, tightness, pressure, burning, with or without radiation to the neck, jaws, arms, or back- Use 1 Nitrostat under your tongue every 5-10 minutes, and up to 3 tablets. If no relief- Call 911 and go to the nearest Emergency Room. -Notify the office for recurrent angina, chest pain or other concerns. You may NOT drive yourself home! Follow the medication instructions provided on your discharge. If the dosages and instructions on this sheet differ from the dosage and instructions on the bottle, follow the instructions on the bottle. [facility] is not responsible for incorrect prescription information provided by the patient during their visit. Do not stop your medications without consulting your health care provider. Please take the list with you to your next doctor's appointment.[facility] Work Phone: Hospital Discharge instructions Additional Instructions Take antibiotics as instructed until gone Push fluids Rest Avoid poking, popping, picking area affected Warm compresses several times a day Avoid underwire bras Naprosyn or Tylenol for pain Please follow primary care doctor for recheck in 3 days Return here if you develop any fever, chills, chest pain, shortness of breath or any other concernsToledo Hospital Work Phone: Hospital Discharge instructions Additional Instructions Return in 2 days for packing removal recheck Take the antibiotic cephalexin and Bactrim twice a day for 10 days take with food and take until completed Can take the ketorolac every 6 hours as needed for pain take with food Change the dressing as needed but leave the packing in place Return to the ER sooner for worsening pain swelling fever vomiting or any other concernsToledo Hospital Work Phone: Hospital Discharge instructions Additional Instructions DISCHARGE INSTRUCTIONS FOR COLONOSCOPY WHAT TO EXPECT: - You may feel full, gassy or cramping after your procedure. In some cases, this may be from a few hours to a day. Walking may help relieve the discomfort. - If you have polyp(s) removed you may note some minor bloody discharge after your first bowel movements. - You should begin to recover from anesthesia within 1 hour of the procedure, however may feel groggy for the next 24 hours. DO's AND DON'Ts: - Call your doctor right away if you have a hard abdomen, severe pain, are passing lots of bright red blood or clots. - Call your doctor if you develop any rashes, hives or difficulty breathing. - Let your doctor know if you have not had a bowel movement by 3 days after your procedure. - If you take 81 mg aspirin for your heart it is safe to resume this medication. - If you take other blood thinner medications your doctor will instruct you when these can safely be resumed. - Do NOT drive for 24 hours. - Do NOT operate machinery such as power tools, [employer] mowers, [employer], sewing machines, etc. for 24 hours. - Avoid alcoholic beverages and drugs for allergies, nerves, or sleep. - Do NOT stay alone. Do NOT leave your child unattended. - Do NOT make important personal or business decisions or sign any legal documents. - Eat solid foods and drink liquids in smaller amounts than usual until normal appetite returns. If you should experience an upset stomach, liquids high in sugar content (soda, Haris-Aid, non-acid juices) are recommended. - You can resume normal activities tomorrow. FOLLOW UP & RECOMMENDATIONS: -The GI office will schedule you a follow-up appointment. -Notify the doctor if you have any problems. -Follow up with PCP. -Office number [phone].[facility] Work Phone: Hospital Discharge instructions Additional Instructions DISCHARGE INSTRUCTIONS FOR DILATION & CURETTAGE (D & C) -Today, outpatient surgery has become a vital link in the health care program. Outpatient D&C is a safe and common practice and this paper is designed to help you know what to expect when you go home and under what circumstances you should give me a call. I will have all of your labs and surgery reports for you when you come in for your follow-up. -To reach me in an emergency, call the office at [[phone]]. TODAY -Take it easy the rest of the day. If you have received a general anesthetic or injections to help you relax for the local procedure you should not drive a car for at least 24 hours after surgery to make sure all of the medication has worn off. ACTIVITIES -There are no restrictions on your normal activities. Generally, you may expect to go back to work the next day unless I have given you other instructions. You should shower daily and practice good personal habits to offset the chance of infection. Avoid intercourse for one week after your surgery and you should not douche. Most women experience minimal disruption of their normal routines. BLEEDING -The amount of bleeding after a D&C varies somewhat. Some women have very little requiring onlya light pad for a few days. Other women may bleed similar to a heavy period for a week or so. [You may wear Tampax if you wish, but be sure to change often.] Do not be alarmed if you expel some clots. -If I have given you a prescription to control bleeding, get it filled on your way home, if possible, and take all the pills according to the directions on the bottle. These pills may increase the amount of your flow and give you cramping similar to first day menstrual cramps. Two Motrin every 6 hours or Anaprox every 12 hours and a heating pad should be sufficient to control any discomfort you may have. If your bleeding becomes bright red and becomes heavy enough that you have used one full pad an hour times 4 hours, I want you to give me a call. Also, if within the first week after surgery you experience chills, fever, and a change in the odor, color, or character of your drainage, you may be developing an infection and you should call me. You may expect your next period anywhere from 2 to 6 weeks after your D&C. Continue Depo DIET -Any diet is permissible FOLLOW UP -Please call the office at [phone] to arrange an appointment to see [facility] Work Phone: Hospital Discharge instructions Additional Instructions Continue albuterol as scheduled Continue steroids daily at home start tomorrow Good handwashing Follow with your PCP Return here if any problems persist or worsenC[facility] Work Phone: Reason for referral (narrative)* Consultation (Routine) - Authorized Specialty Diagnoses / Procedures Referred By Colette t Referred To Contact Cardiology Diagnoses Syndrome X (cardiac) ([facility]) Procedures Follow Up In Cardiology Sveta Garnica APRN-CNP [facility] [facility], [address] [address] Waldo Sow DO [facility] [facility], [address] [address] Referral ID Status Reason Start Date Expiration Date V isits Requested Visits Authorized [id number] Authorized 10/01/2023 09/30/2024 1 1 * Cardiovascular (Routine) - Authorized Specialty Diagnoses / Procedures Referred By Colette t Referred To Contact Diagnoses Pre-operative clearance Procedures ECG 12 Lead Sveta Garnica APRN-CNP [facility] [facility], [address] [address] Referral ID Status Reason Start Date Expiration Date V isits Requested Visits Authorized [id number] Authorized 10/01/2023 09/30/2024 1 1 [facility] Work Phone: Summary Purpose Family History No Family History Records FoundUnknown Family Member Name Dates Details Diagnosis unknown: Mother, F ather, Sibling Status:Active Unknown Family Member Name Dates Details Diagnosis unknown: Mother, F ather, Sibling Status:Active Relationship Condition Age at Onset Recorded Date/T erika Not Specified Diabetes mellitus Unknown Malignant neoplasm Unknown Hypertension Unknown Malignant neoplasm of colon Unknown Relationship Condition Age at Onset Recorded Date/T erika Not Specified Diabetes mellitus Unknown Malignant neoplasm Unknown Hypertension Unknown Malignant neoplasm of colon Unknown Not Specified Unknown Relationship Condition Age at Onset Recorded Date/T erika mother Malignant neoplasm of colon Unknown Diabetes mellitus Unknown Hypertension Unknown Unknown Carcinoma of gallbladder Unknown Depression Unknown Advance Directives No Advanced Directives Records FoundDocuments on File Type Date Recorded 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 Expl anation Advance Directives and Living Will Power of Digital Content Producer Latest Code Status on File Code Status Date Activated Date Inactivated Comments Full Code 02/23/2014 5:55 PM 02/26/2014 11:34 AM Documents on File Type Date Recorded 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 Expl anation Advance Directives and Living Will Power of Digital Content Producer Latest Code Status on File Code Status Date Activated Date Inactivated Comments Full Code 02/23/2014 5:55 PM 02/26/2014 11:34 AM Documents on File Type Date Recorded 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 Expl anation ACP-Advance Directive ACP-Power of Digital Content Producer Advance Directive Response Recorded Date/ Time Advance Directives No March 29, 2020 10:50pm Advance Directive Response Recorded Date/ Time Advance Directives No March 29, 2020 9:50pm History of Present Illness * Mackenzie Contreras RCP - 08/10/2019 1:00 PM EDT Explained Holter monitor and diary. documented in this encounter Discharge Instructions * Attachments The following attachments cannot be sent through Care Everywhere. * Colitis (Kinyarwanda) documented in this encounter* Instructions* Tonie Arzola DO - 02/23/2020 Take pain medication as prescribed, and nausea medication as prescribed. Eat food that is gentle onyour stomach but starts with small sips of water. If you tolerate that then advance to the gentle food such as bananas, applesauce, rice and toast. Follow-up with your primary care provider in the next 1 to 2 days for repeat evaluation. If pain is worse or you develop a fever or persistent vomitingplease return to the emergency room at that time. documented in this encounter Assessments Diagnosis Colitis Other and unspecified noninfectious gastroenteritis and colitis Diagnosis Opiate withdrawal (HCC) Drug withdrawal Diagnosis Abdominal pain, unspecified abdominal location Non-intractable vomiting with nausea, unspecified vomiting type Diagnosis Major depressive episode Major depressive disorder, single episode, unspecified Suicidal ideation Chief Complaint * NATIVIDAD BONNER is being seen for [facility] D/C 01/22 Cath. * 36-year-old female who returns following recent non-ST elevation myocardial infarction, catheterization revealed minimal coronary artery disease normal left ventricular function. 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 * She continues with tobacco use we have counseled her on tobacco cessation for 3 minutes today * We reviewed her coronary angiography and anatomy, as well as potential etiologies for her non-ST elevation CA event including syndrome X. * Recommendations, continued current therapies, she can follow-up as needed, refer to cardiac rehab for ongoing post ACS rehabilitation, exercise, dietary discretion, weight loss counseling and smokingcessation counseling performed. * NATIVIDAD BONNER is being seen for [facility] D/C 01/22 Cath. * 36-year-old female who returns following recent non-ST elevation myocardial infarction, catheterization revealed minimal coronary artery disease normal left ventricular function. 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 * She continues with tobacco use we have counseled her on tobacco cessation for 3 minutes today * We reviewed her coronary angiography and anatomy, as well as potential etiologies for her non-ST elevation CA event including syndrome X. * Recommendations, continued current therapies, she can follow-up as needed, refer to cardiac rehab for ongoing post ACS rehabilitation, exercise, dietary discretion, weight loss counseling and smokingcessation counseling performed. Chief Complaint and Reason for Visit Chief Complaint NONSTEMI Reason for Visit Anxiety Chest pain Depression Diabetes Nausea and vomiting Non-ST elevation (NSTEMI) myocardial infarction Tobacco abuse Chief Complaint NONSTEMI vomiting, diarrhea Reason for Visit Anxiety Chest pain Depression Diabetes Nausea and vomiting Non-ST elevation (NSTEMI) myocardial infarction Tobacco abuse Chief Complaint NONSTEMI vomiting, diarrhea Chest pain Reason for Visit Anxiety Chest pain Depression Diabetes Nausea and vomiting Non-ST elevation (NSTEMI) myocardial infarction Tobacco abuse Chief Complaint Z79.899 Chief Complaint abcess Chief Complaint abcess R10.11 Chief Complaint abcess Constipation R10.11 constipation, rectal bleeding, fx hx colon cancer Chief Complaint sent by dr FARRIS E11.65 E55.9 z71.3 R35.0 Chief Complaint BH Amb Documentation Menorrhagia w/ Irregular Cycle Chief Complaint Amb Documentation Menorrhagia w/ Irregular Cycle Menorrhagia w/ Irregular Cycle Chief Complaint Amb Documentation Menorrhagia w/ Irregular Cycle Menorrhagia w/ Irregular Cycle Amb Documentation f11.20 unable to sleep for more than 1 hr up and down Chief Complaint Amb Documentation Menorrhagia w/ Irregular Cycle Menorrhagia w/ Irregular Cycle Amb Documentation f11.20 unable to sleep for more than 1 hr up and down Reason for Visit Bipolar disorder Chronic insomnia COPD (chronic obstructive pulmonary disease) Nicotine abuse Opioid use disorder Polycythemia Sleep apnea Tardive dyskinesia Chief Complaint Admit Date f106.22March 31, 2024 1 1:43am unable to sleep for more than 1 hr up an d down March 31, 2024 1:39pm April 28, 2024 2:23pm trouble breathing June 04, 2024 2: 24pm Reason for Visit Admit Date Bipolar disorder March 31, 2024 1 :39pm Chronic insomnia March 31, 2024 1 :39pm COPD (chronic obstructive pulmonary dise ase) March 31, 2024 1:39pm Nicotine abuse March 31, 2024 1 :39pm Opioid use disorder March 31, 2024 1 :39pm Polycythemia March 31, 2024 1 :39pm Sleep apnea March 31, 2024 1 :39pm Tardive dyskinesia March 31, 2024 1 :39pm Reason for Referral Reason * Waiting for appt rectal bleeding and constipation - needs colonoscopy family hx colon cancer Diagnosis 1 Constipation (K59.00 ) Referral Organization [facility] Family Ilia Mackenzie Referring Provider First Name Bill Referring Provider Last Name Eagle Referring Provider Specialty Family Prac tra Referred Organization [facility] Gastroenterolo gy Referred Provider Kendrick Joya Referred Address [address] [address] ,[place], [place],[address] Referred Provider Specialty Gastroentero logy Referral Priority Routine General Notes Caro Saenz 08/2023 01:53:13 PM >referral received and sent p2p Reason hidradenitis suppura tiva and abscesses Diagnosis 1 Hidradenitis suppura tiva (L73.2) Referral Organization [facility] Ilia Mackenzie Referring Provider First Name Bill Referring Provider Last Name Eagle Referring Provider Specialty Family Prac tra Referred Provider Specialty Dermatology Referral Priority Routine Additional Source Comments INFORMATION SOURCE (unrecogn ized section and content) DATE CREATED AUTHOR 03/15/2019 [facility] DATE CREATED AUTHOR AUTHOR'S ORGANIZ ATION 01/24/2021 [facility] DATE CREATED AUTHOR AUTHOR'S ORGANIZ ATION 01/25/2022 [facility] DATE CREATED AUTHOR AUTHOR'S ORGANIZ ATION 02/01/2022 [employer] DATE CREATED AUTHOR AUTHOR'S ORGANIZ ATION 03/04/2022 [facility] DATE CREATED AUTHOR AUTHOR'S ORGANIZ ATION 09/11/2024 [facility] EPIC DATE CREATED AUTHOR AUTHOR'S ORGANIZ ATION 10/09/2024 [facility] DATE CREATED AUTHOR AUTHOR'S ORGANIZ ATION 10/31/2024 [facility] Reason for Visit (unrecogniz ed section and content) Status Reason Specialty Diagnoses / Procedures Referred By Contact Referred To Contact Not Required - [facility] EKG Diagnoses Cardiac arrhythmia Procedures HC HOLTER MONITOR Sr Sanjeev Hand, DO [address] [place] [address] [facility] E[facility] [address] [place] [address] Reason Comments Diarrhea Onset yesterday with diffuse abdominal pain/cramping. Emesis Onset yesterday, sev eral episodes Reason Comments Other pt is here for medic al clearance - has a room on [address] [place] [address]. 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 Last used 24 hours ago. Pt is a voluntary admission to [address] [place] [address] and denies any suicidal ideation Reason Comments Abdominal Pain pt states onset Satu rday. Pt states she was seen her for the same and dx with colitis Diarrhea Emesis Reason Comments Suicide Attempt patient took handful l of trazodone 50mg in attempt to end her life Reason Comments Flank Pain ongoing few days, le ft sided, states not urinating as much as normal Abdominal Pain Reason Comments Gynecologic Exam Vaginal Bleeding Reason Comments Pre-op Clearance Dave - ablation Specialty Diagnoses / Procedures Referred By Contac t Referred To Contact Diagnoses Pre-operative clearance Procedures ECG 12 Lead Mynor Garnicamilton Arreola, CLAM PICKER-CAREER REPRESENTATIVE [facility] [facility], [place] [id number] Referral ID Status Reason Start Date Expiration Date V isits Requested Visits Authorized [id number] Authorized 10/01/2023 09/30/2024 1 1 Reason Comments Med Refill Reason Comments Diabetes Follow-up Reason Onset Date Comments Med Refill 09/11/2024 Reason Comments Annual Exam 1 year, syndrome X Specialty Diagnoses / Procedures Referred By Contac t Referred To Contact Cardiology Diagnoses Syndrome X (cardiac) Procedures Follow Up In Cardiology Mynor Garnicamilton Arreola, CLAM PICKER-CAREER REPRESENTATIVE [facility] [facility], [place] [id number] Phone: tel: fax: Waldo Sow DO [facility] [facility], [place] [id number] Phone: tel: fax: Referral ID Status Reason Start Date Expiration Date V isits Requested Visits Authorized [id number] Authorized 10/01/2023 09/30/2024 1 1 Scheduled Active and Recently Administ ered Medications (unrecognized section and content) Medication Order 01/22/2021 01/23/2021 01/24/2021 0.9 % sodium chloride bolus (COMPLETED) 1,000 mL, Intravenous, at 1,000 mL/hr, Administer over 1 Hours, ONCE, On Sat01/23/21 at 2014, For 1 dose 2035 (New Bag - Provider: Lili Akbar RN)2135 (Stopped - Provider: Pavithra Ernst RN) morphine injection 4 mg (COMPLETED) 4 mg, Intravenous, ONCE, On Sat01/23/21 at 2014, For 1 dose, If oral and IV narcotics ordered, use oral first and only use IV if oral is ineffective or cannot take oral. Do Not give oral and IV within 1 hour of each other unless specifically ordered. 2036 (Given - Provider: Pooja Akbar RN) ondansetron (ZOFRAN) injection 4 mg (COMPLETED) 4 mg, Intravenous, ONCE, On 01/23/21 at 2014, For 1 dose 2036 (Given - Provider: Pooja Akbar RN) Care Teams (unrecognized sec tion and content) Team Status: Active Member Role Status Dates Bill Dan DO Primary Care Provider Active Team Status: Inactive Member Role Status Dates Bill Dan DO Primary Care Provider Active Start: March 31, 2024 End: March 31, 2024 Molly Elaine APRN Attending Provider Active Start: March 31, 2024 End: March 31, 2024 Team Status: Inactive Member Role Status Dates Bill Dan DO Primary Care Provider Active Start: March 31, 2024 End: March 31, 2024 Raoul Moon MD Attending Provider Active S tart: March 31, 2024 End: March 31, 2024 Team Status: Active Member Role Status Dates Bill Dan DO Primary Care Provider Active Start: April 28, 2024 Mc Duran MD Attending Provider Active Start: April 28, 2024 Team Status: Inactive Member Role Status Dates Bill Dan DO Primary Care Provider Active Start: June 04, 2024 End: June 04, 2024 Earnestine Alonso APRN Emergency Provider Active Start: June 04, 2024 End: June 04, 2024 Team Status: Active Member Role Status Dates Bill Dan DO Primary Care Provider Active Start: December 31, 2023 Mc Duran MD Attending Provider Active Start: December 31, 2023 Team Status: Active Member Role Status Dates Bill Dan DO Primary Care Provider Active Start: January 09, 2024 Jovita Mejia CMA Attending Provider Active S tart: January 09, 2024 Team Status: Inactive Member Role Status Dates Bill Dan DO Primary Care Provider Active Start: January 21, 2024 End: January 21, 2024 Mely Steinberg MD Attending Provider Active St art: January 21, 2024 End: January 21, 2024 Team Status: Inactive Member Role Status Dates Bill Dan DO Primary Care Provider Active Start: April 29, 2023 End: April 29, 2023 Cira Graf [facility] Emergency Provider Active Start: April 29, 2023 End: April 29, 2023 Team Status: Inactive Member Role Status Dates Bill Dan DO Attending Provider Active S tart: June 05, 2023 End: June 05, 2023 Team Status: Inactive Member Role Status Dates Bill Dan DO Primary Care Provid er, Attending Provider Active Start: June 19, 2023 End: June 19, 2023 Molly Elaine APRN Referring Provider Active Start: June 19, 2023 End: June 19, 2023 Team Status: Active Member Role Status Dates Bill Dan DO Primary Care Provider Active Start: June 24, 2023 Kendrick Joya MD Attending Provider, Other Provider Active Start: June 24, 2023 Team Status: Active Member Role Status Dates Bill Dan DO Primary Care Provider Active Start: March 25, 2023 Mc Duran MD Attending Provider Active Start: March 25, 2023 Team Status: Inactive Member Role Status Dates Jose Lan , Admit Provider Active Bill Dan DO Primary Care Provider Active Natividad Montesinos RN Other Provider Active Suzette Sow , Other Provider Active Orlando Lara MD Other Provider Active Waldo Varma MD Other Provider Active Maite Leary MD Other Provider Active Sanjeev Ibrahim MD Other Provider Active Sveta Garnica APRN Other Provider Active Brooklynn Rg MD Other Provider Active Shavonne Lawrence MD Other Provider Active Brynn Wright MD Other Provider Active Yash Garvey MD Attending Provider Active Team Status: Inactive Member Role Status Dates Bill Dan DO Primary Care Provider Active Aurelio Jesus DO Emergency Provider Active Team Status: Inactive Member Role Status Dates Bill Dan DO Primary Care Provider Active Stephane Alonso DO Emergency Provider Active Team Status: Inactive Member Role Status Dates Bill Dan DO Primary Care Provider Active Molly Elaine APRN Attending Provider Active Team Status: Inactive Member Role Status Dates Bill Dan DO Primary Care Provider Active Cira Graf [facility]- Emergency Provider Active Morning News Producer Relationship Specialty Start Date End Date Bill Dan MD [address] [facility] [place] [place] [id number] PCP - General Family Medicine 07/04/23 Mely Steinberg MD [address] [facility] [address] Obstetrics and Gynecology 07/04/23 Morning News Producer Relationship Specialty Start Date End Date Bill Dan DO [address] [facility] [place] [address] PCP - General 06/03/19 Team Status: Inactive Member Role Status Dates NON STAFF Primary Care Provider Active Start: August 07, 2023 End: August 07, 2023 Stephane Alonso DO Emergency Provider Active Sta rt: August 07, 2023 End: August 07, 2023 Team Status: Active Member Role Status Dates Bill Dan DO Primary Care Provider Active Start: October 15, 2023 Mc Duran MD Attending Provider Active Start: October 15, 2023 Team Status: Inactive Member Role Status Dates Bill Dan DO Primary Care Provid er, Referring Provider Active Start: October 18, 2023 End: October 18, 2023 Nigel Lawson MD Attending Provider Active Sta rt: October 18, 2023 End: October 18, 2023 Team Status: Active Member Role Status Dates Bill Dan DO Primary Care Provider Active Start: January 28, 2024 Mc Duran MD Attending Provider Active Start: January 28, 2024 Team Status: Inactive Member Role Status Dates Bill Dan DO Primary Care Provider Active Start: January 31, 2024 End: January 31, 2024 Mely Steinberg MD Attending Provider Active St art: January 31, 2024 End: January 31, 2024 Morning News Producer Relationship Specialty Start Date End Date Bill Dan MD [address] [facility] [place] [id number] PCP - General Family Medicine 07/04/23 Mely Steinberg MD [address] [address] Obstetrics and Gynecology 07/04/23 Team Status: Active Member Role Status Dates Bill Dan DO Primary Care Provider Active Start: February 19, 2024 Jovita Mejia CMA Attending Provider Active S tart: February 19, 2024 Team Status: Active Member Role Status Dates Bill Dan DO Primary Care Provider Active Start: March 25, 2024 Mc Duran MD Attending Provider Active Start: March 25, 2024 Team Status: Active Member Role Status Dates Bill Dan DO Primary Care Provider Active Start: March 31, 2024 Molly Elaine APRN Attending Provider Active Start: March 31, 2024 Morning News Producer Relationship Specialty Start Date End Date Bill Dan MD [address] [place] [id number] PCP - General Family Medicine 07/04/23 Mely Steinberg MD [address] [address] Obstetrics and Gynecology 07/04/23 Morning News Producer Relationship Specialty Start Date End Date Bill Dan MD [address] [place] [id number] PCP - General Family Medicine 07/04/23 Mely Steinberg MD [address] [address] Obstetrics and Gynecology 07/04/23 Morning News Producer Relationship Specialty Start Date End Date Bill Dan MD [address] [address] [facility] [place] [id number] PCP - General Family Medicine 07/04/23 Mely Steinberg MD [address] [place] [address] [place] [address] Obstetrics and Gynecology 07/04/23 Morning News Producer Relationship Specialty Start Date End Date Bill Dan MD [address] [facility] [place] [phone] PCP - General Family Medicine 07/04/23 Mely Steinberg MD [address] [place] [address] [place] [address] Obstetrics and Gynecology 07/04/23 Morning News Producer Relationship Specialty Start Date End Date Bill Dan MD [address] [facility] [place] [phone] PCP - General Family Medicine 07/04/23 Mely Steinberg MD [address] [address] Obstetrics and Gynecology 07/04/23 Morning News Producer Relationship Specialty Start Date End Date Bill Dan MD [address] [facility] [place] [phone] PCP - General Family Medicine 07/04/23 Mely Steinberg MD [address] [address] Obstetrics and Gynecology 07/04/23 Morning News Producer Relationship Specialty Start Date End Date Bill Dan MD PCP - General Family Medicine 07/04/23 Mely Steinberg MD [address] [place] [address] Obstetrics and Gynecology 07/04/23 Morning News Producer Relationship Specialty Start Date End Date Bill Dan DO [address] [facility] [place] [address] PCP - General 06/03/19 Goals (unrecognized section and content) Goals may be documented in a n alternate section FOR RECORDS PERTAINING TO PATIENTS WHO ARE OR HAVE BEEN ENROLLED IN A CHEMICAL DEPENDENCY/SUBSTANCEABUSE PROGRAM, SOME INFORMATION MAY BE OMITTED. This clinical summary was aggregated from multiple sources. Caution should be exercised in using it in the provision of clinical care. This summary normalizes information from multiple sources, and as a consequence, information in this document may materially change the coding, format and clinical context of patient data. In addition, data may be omitted in some cases. CLINICAL DECISIONS SHOULD BE BASED ON THE PRIMARY CLINICAL RECORDS. [email or web address] [facility]. provides no warranty or guarantee of the accuracy or completeness of information in this document.
--- NOTE | 2024-11-15 21:03 | ED_ITS ---
HPI - Extremity Problem General Chief complaint: Extremity Problem, Nontraumatic Stated complaint: BILATERAL FEET AND LEG SWELLING Time Seen by Provider: 11/15/24 20:46 Source: patient Mode of arrival: walk-in Limitations: no limitations History of Present Illness HPI Narrative: This 39-year-old female with a history of chronic lower extremity swelling presents for evaluation of increased swelling and now some development of redness on her lower extremities bilaterally. She has a faint pink rash that abruptly stops at her sock line bilaterally. She does not have any calf pain or difference in the si size of her calfs but does have 1-2+ edema from her feet to her knees. She states she sees Dr. Sow and he has her on 25 mg of hydrochlorothiazide for the chronic swelling. She denies that she has been on her feet more than usual and denies any change in her sodium intake stating that she does not like to eat salt. She states she did have a mild heart attack in the past. She denies any chest pain or shortness of breath today. She does admit to tobacco use. The woman that is with her states she is concerned that she has cellulitis of her legs because of the pink flat rash that she has and states that the patient [place] in the [place] [facility] [place] where one of the [place] [facility] patients had cellulitis and required an amputation. Related Data Home Medications ?Medication ?Instructions ?Recorded ?Confirmed albuterol sulfate 2.5 mg/3 mL 2.5 mg inhalation Q8H [place] N 11/15/24 11/15/24 (0.083 %) solution for nebulization shortness of breat h or wheezing albuterol sulfate 90 mcg/actuation 2 puff inhalation Q 6H PRN 11/15/24 11/15/24 aerosol inhaler shortness of breath or wheez ing aspirin 81 mg tablet,delayed 81 mg PO DAILY 11/15/24 0 11/15/24 release atenolol 50 mg tablet 50 mg PO DAILY 11/15/2411/01 atorvastatin 40 mg tablet 40 mg PO BEDTIME 11/15/24 buprenorphine 8 mg-naloxone 2 mg 2 tab sublingual GAYLE Y 11/15/24 11/15/24 sublingual tablet buspirone 30 mg tablet 30 mg PO TID 11/15/24 deutetrabenazine 30 mg 30 mg PO DAILY 11/15/2411/01 tablet,extended release 24 hr (Austedo XR) dulaglutide 3 mg/0.5 mL 3 mg subcut .weekly 11/15/24 11/15/24 subcutaneous pen injector (Trulicity) empagliflozin 25 mg tablet 25 mg PO DAILY 11/15/24 (Jardiance) ergocalciferol (vitamin D2) 1,250 50,000 unit PO .week ly 11/15/24 11/15/24 mcg (50,000 unit) capsule gabapentin 100 mg capsule 200 mg PO DAILY 11/15/24 hydrochlorothiazide 25 mg tablet 25 mg PO DAILY 11/15/24 insulin glargine 100 unit/mL (3 40 unit subcut BEDTIME 11/15/24 11/15/24 mL) subcutaneous pen (Lantus Solostar U-100 Insulin) metformin 1,000 mg tablet 1,000 mg PO BID 11/15/24 oxybutynin chloride 5 mg 5 mg PO DAILY 11/15/2411/15 tablet,extended release 24 hr prazosin 5 mg capsule 5 mg PO DAILY 11/15/2411/15 quetiapine 200 mg tablet 200 mg PO BEDTIME 11/15/24 0 11/15/24 venlafaxine 37.5 mg 37.5 mg PO DAILY 11/15/24 capsule,extended release 24 hr Allergies Allergy/AdvReac Type Severity Reaction Status Date / Time No Known Drug Allergies Allergy Verified 09/18/24 19:03 Review of Systems ROS Status of ROS 10 or more systems reviewed and unremark able except as noted in history and below PFSH PFSH Social History Little interest or pleasure in doing things: not at all Feeling down, depressed, or hopeless: not at all Exam Narrative Exam Narrative: Vital signs and Nursing Notes reviewed: Patient is afebrile with a normal pulse, normal respiratory, her blood pressure is mildly elevated 153/97, she has not hypoxic with pulse ox of 96% on room air General: Awake, alert, oriented, no acute distress, lying comfortably on the stretcher HEENT: Normocephalic atraumatic, mucous membranes are moist and pink, eyes are clear, normal conjunctiva, vision is grossly intact Neck: Supple, no JVD Chest: Lungs are clear to auscultation with good air entry, there is no wheezing rhonchi or rales appreciated no accessory muscle use, patient is speaking in complete sentences-no chest wall tenderness to palpation CVS: Regular rate and rhythm S1-S2, no murmurs rubs or gallops, pulses are brisk and equal bilaterally Extremities: Moving all extremities, there is a faint pink rash on both lower extremities that abruptly stops at a sock line on her feet. This is equal bilaterally. There is 1-2+ pitting edema from the feet to the knees bilaterally. There is no calf swelling or tenderness. There is no palpable cords or other notable abnormality in the patient's feet or legs. I do not appreciate any diabetic ulcers. Toes are warm and sensate. Dorsalis pedis pulses are brisk and equal bilaterally. Skin: Normal in appearance without rash,pallor, petechiae or purpura Neuro: No focal deficits Constitutional Vital Signs, click to edit/add: Last Vital Signs Temp 98.8 F 11/15/24 20:42 Pulse 79 11/15/24 21:37 Resp 20 11/15/24 21:37 BP 120/79 11/15/24 21:37 Pulse Ox 96 11/15/24 21:37 O2 Del Method Room Air 11/15/24 20:42 Course Vital Signs Vital signs: Vital Signs Temperature 98.8 F 11/15/24 20:42 Pulse Rate 88 11/15/24 20:42 Respiratory Rate 18 11/15/24 20:42 Blood Pressure 153/97 H 11/15/24 20:42 Pulse Oximetry 96 11/15/24 20:42 Oxygen Delivery Method Room Air 11/15/24 20:42 Temperature 98.8 F 11/15/24 20:42 Pulse Rate 79 11/15/24 21:37 Respiratory Rate 20 11/15/24 21:37 Blood Pressure 120/79 11/15/24 21:37 Pulse Oximetry 96 11/15/24 21:37 Oxygen Delivery Method Room Air 11/15/24 20:42 MDM - Extremity (Nontraumatic) MDM Narrative Medical decision making narrative: This 39-year-old female with a history of chronic lower extremity swelling, morbid obesity, diabetes presents for evaluation of increased swelling of both lower legs as well as a red rash. 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 The patient does not have any fever. She has a very faint pink rash with normal capillary refill on both anterior lower legs that stops abruptly at a sock line. This is consistent with suntan or some other form of contact dermatitis but there is no sign of any cellulitis. She does have 1-2+ pitting edema from her feet to her knees. She has been using hydrochlorothiazide since October but states it is not helping her. She does not have any chest pain or shortness of breath. Her lungs are clear. Pulses are brisk and equal. Routine labs were reviewed. She has a normal white count and hemoglobin. Electrolytes are normal with an elevated glucose at 192. She has a normal BNP. She has a normal D-dimer and normal sed rate. The results of these findings are in keeping with her physical exam. She did not clinically have any findings concerning for a DVT and the redness on her legs does not appear to be a cellulitis. She requested something stronger for her swelling because the hydrochlorothiazide is not working. She was given a dose of 20 mg of Lasix in the emergency department and will be discharged home with a 2-week course of Lasix to use until she can be seen in follow-up by her family physician or Dr. Sow. Lab Data Labs: Lab Results 11/15/24 Range/Units 21:30 WBC 9.3 (4.0-11.0) 10^3/uL RBC 5.35 (4.20-5.40) 10^6/uL Hgb 16.5 H (12.0-16.0) g/dL Hct 47.2 (36.0-48.0) % MCV 88.2 (81.0-99.0) fL MCH 30.8 (26.7-34.0) pg MCHC 35.0 (29.9-35.2) g/dL RDW 12.8 (11.0-15.0) % Plt Count 305 (150-450) 10^3/uL MPV 9.2 L (9.5-13.5) fL Neut % (Auto) 68.5 (43.0-75.0) % Lymph % (Auto) 22.3 (20.5-60.0) % [place] % (Auto) 5.6 (1.7-12.0) % Eos % (Auto) 2.2 (0.9-7.0) % Baso % (Auto) 0.7 (0.2-2.0) % Neut # (Auto) 6.4 (1.4-6.5) 10^3/uL Lymph # (Auto) 2.1 (1.2-3.8) 10^3/uL [place] # (Auto) 0.5 (0.3-0.8) 10^3/uL Eos # (Auto) 0.2 (0.0-0.7) 10^3/uL Baso # (Auto) 0.1 (0.0-0.1) 10^3/uL Abs Immat Gran (auto) 0.07 H (0.00-0.03) 10^3/uL Imm/Tot Granulo (auto) 0.7 H (0.0-0.5) % ESR 11 (<=20) mm/hr D-Dimer 0.24 (<=0.59) mg/L FEU Sodium 137 (136-145) mmol/L Potassium 3.4 L (3.5-5.1) mmol/L Chloride 97 L (98-107) mmol/L Carbon Dioxide 28.6 (21.0-32.0) mmol/L Anion Gap 14.8 BUN 12.0 (7.0-18.0) mg/dL Creatinine 0.65 (0.55-1.02) mg/dL Est GFR ( Amer) >60 (>=60 mL/min/1.73m^2) Est GFR (Non-Af Amer) >60 (>=60 mL/min/1.73m^2) BUN/Creatinine Ratio 18.5 Glucose 192 H (74-106) mg/dL Calcium 9.4 (8.5-10.1) mg/dL Total Bilirubin 0.3 (0.2-1.0) mg/dL AST 16 (15-37) U/L ALT 26 (14-59) U/L Alkaline Phosphatase 98 (46-116) U/L NT-Pro-B Natriuret Pep 29.0 (<=450.0) pg/mL Total Protein 7.1 (6.4-8.2) g/dL Albumin 3.7 (3.4-5.0) g/dL Globulin 3.4 g/dL Albumin/Globulin Ratio 1.1 Discharge Plan Discharge Chief Complaint: Extremity Problem, Nontraumatic Clinical Impression: Lower extremity edema Patient Disposition: Home, Self-Care Time of Disposition Decision: 22:38 Condition: Good Prescriptions / Home Meds: No Action albuterol sulfate 2.5 mg /3 mL (0.083 %) solution for nebulization 2.5 mg inhalation Q8H PRN (Reason: shortness of breath or wheezing) albuterol sulfate 90 mcg/actuation HFA aerosol inhaler 2 puff INHALATION Q6H PRN (Reason: shortness of breath or wheezing) aspirin 81 mg tablet,delayed release (DR/EC) 81 mg PO DAILY atenolol 50 mg tablet 50 mg PO DAILY atorvastatin 40 mg tablet 40 mg PO BEDTIME buprenorphine-naloxone 8-2 mg tablet, sublingual 2 tab SUBLINGUAL DAILY buspirone 30 mg tablet 30 mg PO TID [place] XR 30 mg tablet extended release 24 hr 30 mg PO DAILY Trulicity 3 mg/0.5 mL pen injector 3 mg SUBCUT .weekly Jardiance 25 mg tablet 25 mg PO DAILY ergocalciferol (vitamin D2) 1,250 mcg (50,000 unit) capsule 50,000 unit PO .weekly gabapentin 100 mg capsule 200 mg PO DAILY hydrochlorothiazide 25 mg tablet 25 mg PO DAILY insulin glargine [Lantus Solostar U-100 Insulin] 100 unit/mL (3 mL) insulin pen 40 unit SUBCUT BEDTIME metformin 1,000 mg tablet 1,000 mg PO BID oxybutynin chloride 5 mg tablet extended release 24hr 5 mg PO DAILY prazosin 5 mg capsule 5 mg PO DAILY quetiapine 200 mg tablet 200 mg PO BEDTIME venlafaxine 37.5 mg capsule,extended release 24hr 37.5 mg PO DAILY Print Language: Mohawk Instructions: Leg Edema (ED), Edema (ED) Referrals: BILL DAN [Primary Care Provider, Unknown] - 1 week
[2024-11-15 21:37] VITALS: BP 120/79; PULSE 79; O2SAT 96
[2024-11-15 21:41] LABS: Basophils Absolute Auto 0.1 10^3/uL (0.0-0.1); Basophils Percent Auto 0.7 % (0.2-2.0); Eosinophils Absolute Auto 0.2 10^3/uL (0.0-0.7); Eosinophils Percent Auto 2.2 % (0.9-7.0); Hematocrit 47.2 % (36.0-48.0); Hemoglobin 16.5 g/dL (12.0-16.0); Immature Granulocytes Abs Auto 0.07 10^3/uL (0.00-0.03); Immature Granulocytes Pct Auto 0.7 % (0.0-0.5); Lymphocytes Absolute Auto 2.1 10^3/uL (1.2-3.8); Lymphocytes Percent Auto 22.3 % (20.5-60.0); Mean Corpuscular Hemoglobin 30.8 pg (26.7-34.0); Mean Corpuscular Volume 88.2 fL (81.0-99.0); Mean Platelet Volume 9.2 fL (9.5-13.5); Monocytes Absolute Auto 0.5 10^3/uL (0.3-0.8); Monocytes Percent Auto 5.6 % (1.7-12.0); Neutrophils Absolute Auto 6.4 10^3/uL (1.4-6.5); Neutrophils Percent Auto 68.5 % (43.0-75.0); Platelet Count 305 10^3/uL (150-450); Red Blood Count 5.35 10^6/uL (4.20-5.40); Red Cell Distribution Width 12.8 % (11.0-15.0); White Blood Count 9.3 10^3/uL (4.0-11.0)
[2024-11-15 21:45] LABS: Erythrocyte Sedimentation Rate 11 mm/hr (<=20)
[2024-11-15 21:56] LABS: Alanine Aminotransferase 26 U/L (14-59); Albumin Globulin Ratio 1.1; Albumin Level 3.7 g/dL (3.4-5.0); Alkaline Phosphatase 98 U/L (46-116); Anion Gap 14.8; Aspartate Amino Transferase 16 U/L (15-37); BUN Creatinine Ratio 18.5; Bilirubin Total 0.3 mg/dL (0.2-1.0); Calcium 9.4 mg/dL (8.5-10.1); Carbon Dioxide 28.6 mmol/L (21.0-32.0); Chloride 97 mmol/L (98-107); D Dimer 0.24 mg/L FEU (<=0.59); Estimated GFR (African America >60 (>=60 mL/min/1.73m^2); Estimated GFR (Non-African Ame >60 (>=60 mL/min/1.73m^2); Globulin 3.4 g/dL; Glucose 192 mg/dL (74-106); Potassium 3.4 mmol/L (3.5-5.1); Sodium 137 mmol/L (136-145); Total Protein 7.1 g/dL (6.4-8.2)
[2024-11-15 22:47] VITALS: BP 144/96; PULSE 82; O2SAT 96
[2024-11-15] MEDS: FUROSEMIDE 20 MG TABLET PO (23:10)
== END 2024-11-15 23:17 | disposition home or self-care (01) ==
PROVIDERS: Emergency Provider Emergency Medicine; PCP Family Medicine
DX: R60.0 Localized edema (principal); I25.2 Old myocardial infarction; E66.01 Morbid (severe) obesity due to excess calories; Z68.42 Body mass index [BMI] 45.0-49.9, adult; E11.65 Type 2 diabetes mellitus with hyperglycemia; Z79.85 Long-term (current) use of injectable non-insulin antidiabetic drugs; Z79.84 Long term (current) use of oral hypoglycemic drugs; Z79.4 Long term (current) use of insulin
CPT/HCPCS: 36415; 80053; 83880; 85025; 85378; 85652; 99283

== ENCOUNTER 2025-02-12 21:12 | Emergency (ER) | payer OTHER, SELFPAY ==
[2025-02-12] VITALS (16 sets, daily range): BP systolic 102–135; BP diastolic 43–73; PULSE 64–85; TEMP 36.8; O2SAT 93–98; BMI 49.1
--- OUTSIDE RECORDS SUMMARY | 2025-02-12 21:27 | XMS_ITS | CCD ---
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, DR VICTORIA Primary Care Unavailable [place], DR RAOUL Barth Consulting Unavailable ANDERS BHARDWAJ [...] Other Provider MD Yash Garvey Attending Provider [phone] Waldo Varma II Attending Unavailable Waldo Varma II Referring Unavailable Dr. Waldo Sow Attending Unavailable Dr. Waldo Sow Attending Unavailable Dr. Waldo Sow Referring Unavailable Waldo Varma II Attending Unavailable MD Brooklynn Rg Other Provider DO Aurelio Jesus Emergency Provider DO Stephane Alonso Emergency Provider [phone] DO Bill Dan Primary Care Provider ROCCO Elaine Attending Provider DO Bill Dan Primary Care Provider Lesia [facility] Emergency Provider Kendrick Joya Unavailable DO Bill Dan Primary Care Provider MD Mc Duran Attending Provider DO Bill Dan Attending Provider [phone] ROCCO Elaine Referring Provider Bill Dan MD Primary Care Provider Mely Steinberg MD Unavailable Bill Dan DO Primary Care Provider NON STAFF Primary Care Provider Unavailabl e DO Gavin [facility] Emergency Provider DO Bill Dan Primary Care Provider MD Mc Duran Attending Provider DO Bill Dan Referring Provider MD Nigel Lawson Attending Provider DO Bill Dan Primary Care Provider MD Mc Duran Attending Provider MD Mely Steinberg Attending Provider DO Bill Dan Primary Care Provider MD Mc Duran Attending Provider MD Mc Duran Attending Provider ROCCO Elaine Attending Provider Bill Dan DO Primary Care Provider Molly Elaine APRN Attending Provider [phone] Mc Duran MD Attending Provider [phone] Earnestine Alonso APRN Emergency Provider MELY STEINBERG Attending Unavailable MELY STEINBERG Referring Unavailable NIGEL LAWSON Attending Unavailable ALDEN LIN Attending Unavailable Bill Dan MD Primary Care Provider Bill Dan DO Primary Care Provider WALDO SOW Attending Unavailable SVETA GARNICA Referring Unavailable BILL DAN Primary Care UnavailBill Martell Primary Care Unavailable Earnestine Alonso Attending Unavailable Earnestine Alonso Admitting Unavailable Bill Dan Primary Care Unavailable Molly Elaine Attending Unavailable Molly Elaine Admitting Unavailable Bill Dan Primary Care Unavailable cM Duran Attending Unavailab Mc [place] Admitting Unavailab Mely Linares Attending Unavailable Mely Steinberg Admitting Unavailable Bill Dan Primary Care Unavailable Allergies Allergy Classification Reported Allergen(s) Allergy Type Date of Onset Reaction(s) Facility (1 source) metFORMIN Drug Allergy 01-20-2022 Abdominal Pain [facility] Medications Current Medications Medication Drug Class(es) Dates [...] nebulizer solution Indications: Bronchitis with asthma, acute ([facility]) Take 3 mL (2.5 mg) by nebulization [...] a day Active take 2 tablets by [facility] every twenty-four hours Buprenorphine HCl-Naloxone HCl [...] Continuous Glu cose Sensor (Dexcom G7 Sensor) misc 1 each 04/19/2024 Active Deutetrabenazine (3 sources) [...] hyperglycemia, with long-term current use of insulin (CMS/[facility]) Take 1 tablet (25 mg) by mouth Daily 90 tablet 1 08/31/2024 02/27/2025 Active ergocalciferol 1.25 mg oral capsule (13 sources) Provitamin D2 Compound Start: 01-21-2024 take 1 capsule by mouth every week ergocalciferol (Vitamin D2) 1.25 MG (30290 UT) capsule Indications: Type 2 diabetes mellitus [...] 2 diabetes mellitus with hyperglycemia, unspecified whether shelter insulin use (CMS/HCC) Take 2 tablets (1,000 mg) by mouth in the morning and 2 tablets (1,000 mg) before bedtime. Do not crush, chew, or split.. 120 tablet 1 06/24/2024 09/22/2024 Active Start: 01-21-2024 take 1 tablet by twice daily Metformin 1,000 mg tablet Active [...] MG tablets Indications: Bronchitis with asthma, acute ([facility]) Follow schedule on package instructions 21 tablet [...] bedtime 04/29/2023 Active take 1 capsule by [facility] every twenty-four hours Prazosin HCl 2 [...] Tablet Discontinued 50 MG PO Bedtime 14 April 08, 2020 12:00am January 20, [...] 1 % gel take 1 capsule by [facility] every twelve hours Clindamycin HCl 300 [...] hyperglycemia, with long-term current use of insulin ([facility]) Inject 40 Units under the skin [...] Coronary atherosclerosis; Translations: [Atherosclerotic heart disease of havasupai coronary artery without angina pectoris] Onset: 01-24-2022 [...] 07-14-2024 Chronic Other aftercare (1 source) 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; Translations: [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] Onset: 01-23-2022 Episodic Other aftercare (2 sources) 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; Translations: [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 (Multi)] Onset: 03-13-2023 [...] (BMI) of 45.0 to 49.9 in adult (CMS/HCC)] 07-14-2024 Chronic Other screening for suspected conditions [...] Interpretation and review of laboratory results Normal [facility] RESULT 1 Negative Negatvie [facility] RESULT 2 Negative Negatvie [facility] Glucose (Bld) [Mass/Vol]Orde red By: Adilene Greene on 07-14-2024 Glucose Blood, POC 171 mg/dL [facility] Laboratory - Hematology and Cell countson 07-14-2024 HbA1c (Bld) [Mass fraction] 11.3 % [facility] No Panel InformationOrdered By: Adilene Greene on 07-14-2024 [facility] B-Type Natriuretic Peptideon 06-04-2024 Natriuretic peptide B (Bld) [Mass/Vol] 42.0 pg/mL Normal 5-100 [facility] Comment on above: Result Comment: PERF ORMED BY: [address] [place] [address] PATHOLOGIST PHOTOGRAPHIC EQUIPMENT INSPECTOR ROSHNI RAINES M.D. Performed By: #### P T, CBC, BMP, HS TROP, PTT, BNP ####[address] Basic Metabolic Panelon Anion gap [Moles/Vol] 10.4 mmol/L Normal 6.0-15.0 Th e [facility] Comment on above: Performed By: #### P T, CBC, BMP, HS TROP, PTT, BNP ####[address] [address] [facility] Calcium [Mass/Vol] 8.9 mg/dL Normal 8.6-10.3 [facility] Comment on above: Performed By: #### P T, CBC, BMP, HS TROP, PTT, BNP ####[place] [id number] [facility] Chloride [Moles/Vol] 102 mmol/L Normal 98-107 [facility] Comment on above: Performed By: #### P T, CBC, BMP, HS TROP, PTT, BNP ####[place] [id number] [facility] CO2 [Moles/Vol] 27.6 mmol/L Normal 21.0-31.0 The [facility] Comment on above: Performed By: #### P T, CBC, BMP, HS TROP, PTT, BNP ####[place] [id number] Creatinine [Mass/Vol] 0.64 mg/dL Normal 0.60-1.20 [facility] Comment on above: Performed By: #### P T, CBC, BMP, HS TROP, PTT, BNP ####[address] Creatinine Clr Calc Pharmacy 144.54 Normal [facility] Comment on above: Result Comment: PERF ORMED BY: [facility] [address] [address] PATHOLOGIST PHOTOGRAPHIC EQUIPMENT INSPECTOR ROSHNI RAINES M.D. Performed By: #### P T, CBC, BMP, HS TROP, PTT, BNP ####[address] GFR/1.73 sq M.predicted MDRD (S/P/Bld) [Vol rate/Area] mL/min/{1.73_m2} Normal [facility] Comment on above: Performed By: #### P T, CBC, BMP, HS TROP, PTT, BNP ####[address] Glucose [Mass/Vol] 252 mg/dL High 70-100 [facility] Comment on above: Result Comment: [place] Glucose Reference Range is dependent on time and content of last meal. Glucose of more than 200 mg/dL in a nonstressed, ambulatory subject supports the diagnosis of Diabetes Mellitus. ADA recommended reference range Performed By: #### P T, CBC, BMP, HS TROP, PTT, BNP ####[address] Potassium [Moles/Vol] 4.0 mmol/L Normal 3.5-5.1 [facility] Comment on above: Performed By: #### P T, CBC, BMP, HS TROP, PTT, BNP ####[facility] [place] [id number] [facility] Sodium [Moles/Vol] 136 mmol/L Normal 136-145 [facility] Comment on above: Performed By: #### P T, CBC, BMP, HS TROP, PTT, BNP ####[facility] [id number] [place] [id number] [facility] Urea nitrogen [Mass/Vol] 11 mg/dL Normal 7-25 [facility] Comment on above: Performed By: #### P T, CBC, BMP, HS TROP, PTT, BNP ####[facility] [id number] [place] [id number] [facility] Basophils Auto (Bld) [#/Vol] Ordered By: Earnestine Alonso on 06-04-2024 Basophils (Bld) [#/Vol] Automated basophil count 0.0-0.2 [facility] Basophils/100 WBC Auto (Bld) Ordered By: Earnestine Alonso on 06-04-2024 Basophils/100 WBC (Bld) Automated basophil % . [facility] COVID Cepheid NegativeOrdere d By: Earnestine Alonso on 06-04-2024 SARS-CoV-2 (COVID-19) Ab IA Ql COVID Cepheid Negative [facility] Comment on above: This is a duplicate [...] or Cepheid Disclaimer revoked sooner. PERFORMED BY: [facility] [address] [place] [address] PATHOLOGIST PHOTOGRAPHIC EQUIPMENT INSPECTOR ROSHNI RAINES M.D. Normal [facility] Comment on above: Performed By: #### C OVID19 FLU RSV, CEPHEID NEG ####[facility] [id number] [place] [address] [facility] Calcium [Mass/volume] in Ser um or PlasmaOrdered By: Earnestine Alonso on 06-04-2024 Calcium [Mass/Vol] Calcium [Mass/volume ] in Serum or Plasma 8.6-10.3 [facility] Carbon dioxide, total [Moles /volume] in Serum or PlasmaOrdered By: Earnestine Alonso on 06-04-2024 CO2 [Moles/Vol] Carbon dioxide, tota l [Moles/volume] in Serum or Plasma 21.0-31.0 [facility] Cepheid COVID PCR Negativeon 06-04-2024 SARS-CoV-2 (COVID-19) RNA HARJINDER+probe Ql (Unsp spec) Negative Normal Negative The [facility] Comment on above: Result Comment: This is a duplicate Cepheid Xpert Xpress CoV-2/Flu/RSV Plus RNA by RT-PCR result to be used for statistical tracking purpose only. PERFORMED BY: [place] [id number] PATHOLOGIST PHOTOGRAPHIC EQUIPMENT INSPECTOR ROSHNI RAINES M.D. Performed By: #### C OVID19 FLU RSV, CEPHEID NEG ####[place] [id number] [place] [id number] [facility] Chloride [Moles/volume] in S zaria or PlasmaOrdered By: Earnestine Alonso on 06-04-2024 Chloride [Moles/Vol] Chloride [Moles/vol ume] in Serum or Plasma 98-107 [facility] Complete Blood Count Auto Di ffon 06-04-2024 Basophils (Bld) [#/Vol] 0.1 10*3/uL Normal 0.0-0.2 [facility] Comment on above: Result Comment: PERF ORMED BY: [place] [id number] PATHOLOGIST PHOTOGRAPHIC EQUIPMENT INSPECTOR ROSHNI RAINES M.D. Performed By: #### P T, CBC, BMP, HS TROP, PTT, BNP ####[place] [id number] [facility] Basophils/100 WBC (Bld) 1.3 % Normal . [facility] Comment on above: Performed By: #### P T, CBC, BMP, HS TROP, PTT, BNP ####[place] [id number] [facility] Eosinophils (Bld) [#/Vol] 0.2 10*3/uL Normal 0.0-0.45 [facility] Comment on above: Performed By: #### P T, CBC, BMP, HS TROP, PTT, BNP ####[address] Eosinophils/100 WBC (Bld) 2.1 % Normal . [facility] Comment on above: Performed By: #### P T, CBC, BMP, HS TROP, PTT, BNP ####[address] Erythrocyte distribution width (RBC) [Ratio] 13.5 % Normal 11.9-15.3 [facility] Comment on above: Performed By: #### P T, CBC, BMP, HS TROP, PTT, BNP ####[address] Hematocrit (Bld) [Volume fraction] 46.0 % Normal 34.0-46.4 [facility] Comment on above: Performed By: #### P T, CBC, BMP, HS TROP, PTT, BNP ####[address] Hemoglobin (Bld) [Mass/Vol] 16.1 g/dL High 11.8-15.4 [facility] Comment on above: Performed By: #### P T, CBC, BMP, HS TROP, PTT, BNP ####[address] Lymphocytes (Bld) [#/Vol] 2.2 10*3/uL Normal 1.00-4.8 [facility] Comment on above: Performed By: #### P T, CBC, BMP, HS TROP, PTT, BNP ####[address] Lymphocytes/100 WBC (Bld) 21.8 % Normal . [facility] Comment on above: Performed By: #### P T, CBC, BMP, HS TROP, PTT, BNP ####[address] MCH (RBC) [Entitic mass] 31.1 pg Normal 24.7-34.3 [facility] Comment on above: Performed By: #### P T, CBC, BMP, HS TROP, PTT, BNP ####[address] MCV (RBC) [Entitic vol] 89.0 fL Normal 80-100 [facility] Comment on above: Performed By: #### P T, CBC, BMP, HS TROP, PTT, BNP ####[address] Mean Corpuscular HGB Conc 35.0 g/dL Normal 32.0-35.0 [facility] Comment on above: Performed By: #### P T, CBC, BMP, HS TROP, PTT, BNP ####[address] Monocytes (Bld) [#/Vol] 0.6 10*3/uL Normal 0.0-0.8 [facility] Comment on above: Performed By: #### P T, CBC, BMP, HS TROP, PTT, BNP ####[address] Monocytes/100 WBC (Bld) 17.45 % Normal 0.00-20.00 [facility] Comment on above: Performed By: #### P T, CBC, BMP, HS TROP, PTT, BNP ####[address] Monocytes/100 WBC (Bld) 5.7 % Normal . [facility] Comment on above: Performed By: #### P T, CBC, BMP, HS TROP, PTT, BNP ####[address] Neutrophils (Bld) [#/Vol] 6.9 10*3/uL Normal 1.8-7.7 [facility] Comment on above: Performed By: #### P T, CBC, BMP, HS TROP, PTT, BNP ####[address] Neutrophils/100 WBC (Bld) 69.1 % Normal . [facility] Comment on above: Performed By: #### P T, CBC, BMP, HS TROP, PTT, BNP ####[address] [place] [address] [facility] NRBC% 0.1 /100{WBC} Normal 0-0.5 The [facility] Comment on above: Performed By: #### P T, CBC, BMP, HS TROP, PTT, BNP ####[place] [id number] [facility] Platelet mean volume (Bld) [Entitic vol] 7.2 fL Normal 6.3-10.7 The [facility] s [facility]ician [facility] Comment on above: Performed By: #### P T, CBC, BMP, HS TROP, PTT, BNP ####[place] [id number] [place] [address] [facility] Platelets (Bld) [#/Vol] 296 10*3/uL Normal 150-450 [facility] Comment on above: Performed By: #### P T, CBC, BMP, HS TROP, PTT, BNP ####[place] [id number] [facility] RBC (Bld) [#/Vol] 5.17 10*6/uL High 3.60-5.00 The [facility] Comment on above: Performed By: #### P T, CBC, BMP, HS TROP, PTT, BNP ####[place] [id number] [facility] WBC (Bld) [#/Vol] 9.9 10*3/uL Normal 3.8-11.6 [facility] Comment on above: Performed By: #### P T, CBC, BMP, HS TROP, PTT, BNP ####[place] [id number] [facility] Creatinine [Mass/volume] in Serum or PlasmaOrdered By: Earnestine Alonso on 06-04-2024 Creatinine [Mass/Vol] Creatinine [Mass/v olume] in Serum or Plasma 0.60-1.20 [facility] ECG 12 lead ECGon 06-04-2024 ECG 12 lead ECG [facility] Main [place] [address] [place] [address] Electrocardiograph Report Signed Patient: Natividad Bonner MR#: [id number] : 1985 Acct:[id number] Age/Sex: 38 / F ADM Date: 06/04/24 Loc: ER Room: Type: [facility] ER Attending Dr: Ordering Provider: Earnestine Alonso [...] sinus rhythm Confirmed by Chandan James DO ([id number]) on 06/05/2024 1:03:54 AM Referred By: Electronically Signed By: Chandan James DO Transcribed By: MUS Signed By Chandan James DO 0103 Normal The [facility] Physician [facility] ECG 12 lead ECG [facility] [place] [address] Electrocardiograph Report Signed Patient: Natividad Bonner MR#: [id number] : 1985 Acct:[id number] Age/Sex: 38 / F ADM Date: 06/04/24 Loc: ER Room: Type: [facility] ER Attending Dr: Ordering Provider: Earnestine Alonso [...] sinus rhythm Confirmed by Chandan James DO ([id number]) on 06/05/2024 1:04:30 AM Referred By: Electronically Signed By: Chandan James DO Transcribed By: MUS Signed By Chandan James DO 0104 Normal [facility] Eosinophils Auto (Bld) [#/Vo l]Ordered By: Earnestine Alonso on 06-04-2024 Eosinophils (Bld) [#/Vol] Automated eosinophil count 0.0-0.45 [facility] Eosinophils/100 WBC Auto (Bl d)Ordered By: Earnestine Alonso on 06-04-2024 Eosinophils/100 WBC (Bld) Automated eosinophil % . [facility] Erythrocyte distribution wid th Auto (RBC) [Ratio]Ordered By: Earnestine Alonso on 06-04-2024 Erythrocyte distribution width (RBC) [Ratio] Erythrocyte distribution width [Ratio] by Automated count 11.9-15.3 [facility] Glucose [Mass/volume] in Ser um or PlasmaOrdered By: Earnestine Alonso on 06-04-2024 Glucose [Mass/Vol] Glucose [Mass/volume ] in Serum or Plasma High 70-100 [facility] Comment on above: ADA recommended refe rence rangeRandom Glucose Reference Range is dependent on time and content of last meal. Glucose of more than 200 mg/dL in a nonstressed, ambulatory subject supports the diagnosis of Diabetes Mellitus. Hematocrit Auto (Bld) [Volum e fraction]Ordered By: Earnestine Alonso on 06-04-2024 Hematocrit (Bld) [Volume fraction] Hematocrit [Volume Fraction] of Blood by Automated count 34.0-46.4 [facility] Hemoglobin [Mass/volume] in BloodOrdered By: Earnestine Alonso on 06-04-2024 Hemoglobin (Bld) [Mass/Vol] Hemoglobin [Mass/volume] in Blood High 11.8-15.4 [facility] INR in Platelet poor plasma by Coagulation assayOrdered By: Earnestine Alonso on 06-04-2024 INR Coag (PPP) [Relative time] INR in Platelet poor plasma by Coagulation assay [facility] Comment on above: INR Therapeutic Rang e [...] erythrocytes in Blood by Automated coun 3.8-11.6 [facility] Lymphocytes Auto (Bld) [#/Vo l]Ordered By: Earnestine Alonso on 06-04-2024 Lymphocytes (Bld) [#/Vol] Lymphocytes [#/volume] in Blood by Automated count 1.00-4.8 [facility] Lymphocytes/100 WBC Auto (Bl d)Ordered By: Earnestine Alonso on 06-04-2024 Lymphocytes/100 WBC (Bld) Lymphocytes/100 leukocytes in Blood by Automated count . [facility] MCH Auto (RBC) [Entitic mass ]Ordered By: Earnestine Alonso on 06-04-2024 MCH (RBC) [Entitic mass] MCH [Entitic mass] by Automated count 24.7-34.3 [facility] MCHC Auto (RBC) [Mass/Vol]Or dered By: Earnestine Alonso on 06-04-2024 MCHC (RBC) [Mass/Vol] MCHC [Mass/volume] by Automated count 32.0-35.0 [facility] MCV Auto (RBC) [Entitic vol] Ordered By: Earnestine Alonso on 06-04-2024 MCV (RBC) [Entitic vol] MCV [Entitic volume] by Automated count 80-100 [facility] Monocyte distribution width [Entitic volume] in Blood by AutomatedOrdered By: Earnestine Alonso on 06-04-2024 Monocyte distribution width Auto (Bld) [Entitic vol] Monocyte distribution width [Entitic volume] in Blood by Automated 0.00-20.00 [facility] Monocytes Auto (Bld) [#/Vol] Ordered By: Earnestine Alonso on 06-04-2024 Monocytes (Bld) [#/Vol] Automated blood monocyte count 0.0-0.8 [facility] Monocytes/100 WBC Auto (Bld) Ordered By: Earnestine Alonso on 06-04-2024 Monocytes/100 WBC (Bld) Automated monocyte % . [facility] Natriuretic peptide B [Mass/ Vol]Ordered By: Earnestine Alonso on 06-04-2024 Natriuretic peptide B (Bld) [Mass/Vol] BNP ser/plas 5-100 [facility] Neutrophils Auto (Bld) [#/Vo l]Ordered By: Earnestine Alonso on 06-04-2024 Neutrophils (Bld) [#/Vol] Neutrophils [#/volume] in Blood by Automated count 1.8-7.7 [facility] Neutrophils/100 WBC Auto (Bl d)Ordered By: Earnestine Alonso on 06-04-2024 Neutrophils/100 WBC (Bld) Automated neutrophil % . [facility] No Panel InformationOrdered By: Earnestine Alonso on 06-04-2024 Estimated GFR (CKD-EPI) > 60.0 mL/Min [facility] Creatinine Clearance (Chem 144.54 [facility] Nucleated erythrocytes [Pres ence] in Blood by Automated countOrdered By: Earnestine Alonso on 06-04-2024 Nucleated RBC Auto Ql (Bld) Nucleated erythrocytes [Presence] in Blood by Automated count 0-0.5 [facility] Partial Thromboplastin Timeo n 06-04-2024 aPTT Coag (Bld) [Time] 29.7 s Normal 25.1-36.5 Th e [facility] Comment on above: Result Comment: A he matocrit value greater than 55% may lead to inaccurate results in coagulation testing. Patients having hematocrit values >55% require a special collection tube for coagulation studies. Please contact the laboratory at [phone] for redraw instructions. PERFORMED BY: [facility] [address] [place] [address] PATHOLOGIST PHOTOGRAPHIC EQUIPMENT INSPECTOR ROSHNI RAINES M.D. Performed By: #### P T, CBC, BMP, HS TROP, PTT, BNP ####[facility] [id number] [place] [address] [facility] Platelet mean volume Auto (B ld) [Entitic vol]Ordered By: Earnestine Alonso on 06-04-2024 Platelet mean volume (Bld) [Entitic vol] Platelet mean volume [Entitic volume] in Blood by Automated count 6.3-10.7 [facility] Platelets Auto (Bld) [#/Vol] Ordered By: Earnestine Alonso on 06-04-2024 Platelets (Bld) [#/Vol] Platelets [#/volume] in Blood by Automated count 150-450 [facility] Potassium [Moles/volume] in Serum or PlasmaOrdered By: Earnestine Alonso on 06-04-2024 Potassium [Moles/Vol] Potassium [Moles/v olume] in Serum or Plasma 3.5-5.1 [facility] Prothrombin Time INRon 06-04 INR Coag (PPP) [Relative time] 0.9 {INR} Normal [facility] Comment on above: Result Comment: [...] T, CBC, BMP, HS TROP, PTT, BNP ####[facility] [id number] [place] [address] [facility] PT Coag (PPP) [Time] 10.6 s Normal 9.0-12.9 [facility] [facility] Comment on above: Result Comment: A he matocrit value greater than 55% may lead to inaccurate results in coagulation testing. Patients having hematocrit values >55% require a special collection tube for coagulation studies. Please contact the laboratory at [phone] for redraw instructions. Performed By: #### P T, CBC, BMP, HS TROP, PTT, BNP ####[facility] [id number] [place] [address] [facility] Prothrombin time (PT)Ordered By: Earnestine Alonso on 06-04-2024 PT Coag (PPP) [Time] Prothrombin time (PT) 9.0- 12.9 [facility] Comment on above: A hematocrit value g reater than 55% may lead to inaccurate results in coagulation testing. Patients having hematocrit values >55% require a special collection tube for coagulation studies. Please contact the laboratory at [phone] for redraw instructions. RBC Auto (Bld) [#/Vol]Ordere d By: Earnestine Alonso on 06-04-2024 RBC (Bld) [#/Vol] Erythrocytes [#/volu me] in Blood by Automated count High 3.60-5.00 [facility] Respiratory specimen influen za A virus, influenza B virus, respiratory syncytical virOrdered By: Earnestine Alonso on 06-04-2024 SARS-CoV-2 (COVID-19) RNA HARJINDER+probe Ql (Unsp spec) Respiratory specimen influenza A virus, influenza B virus, respiratory syncytical vir [facility] Serum or plasma anion gap de terminationOrdered By: Earnestine Alonso on 06-04-2024 Anion gap [Moles/Vol] Serum or plasma an ion gap determination 6.0-15.0 [facility] Sodium [Moles/volume] in Ser um or PlasmaOrdered By: Earnestine Alonso on 06-04-2024 Sodium [Moles/Vol] Sodium [Moles/volume ] in Serum or Plasma 136-145 [facility] Troponin I High Sensitivityo n 06-04-2024 Troponin I High Sensitivity 2.8 pg/mL Normal 0.0-15.0 [facility] Comment on above: Result Comment: PERF ORMED BY: [facility] [address] [place] [address] PATHOLOGIST PHOTOGRAPHIC EQUIPMENT INSPECTOR ROSHNI RAINES M.D. Performed By: #### P T, CBC, BMP, HS TROP, PTT, BNP ####[facility] [id number] Troponin I.cardiac [Mass/vol ume] in Serum or Plasma by Detection limit <= 0.01 ng/Ordered By: Earnestine Alonso on 06-04-2024 Troponin I.cardiac DL <= 0.01 ng/mL [Mass/Vol] Troponin I.cardiac [Mass/volume] in Serum or Plasma by Detection limit <= 0.01 ng/ 0.0-15.0 [facility] Urea nitrogen [Mass/volume] in Serum or PlasmaOrdered By: Earnestine Alonso on 06-04-2024 Urea nitrogen [Mass/Vol] Urea nitrogen [Mass/volume] in Serum or Plasma 7-25 [facility] WBC Auto (Bld) [#/Vol]Ordere d By: Earnestine Alonso on 06-04-2024 WBC (Bld) [#/Vol] Leukocytes [#/volume ] in Blood by Automated count 3.8-11.6 [facility] X-ray reportOrdered By: Lupe Landry on 06-04-2024 Study report [facility] Main [place] [id number] XRay Report Signed Patient: Natividad Bonner MR#: [id number] : 1985 Acct:[id number] Age/Sex: 38 / F ADM Date: Loc: ER Room: Type: PRE ER Attending [...] Lupe Landry M.D.06/04/2024 5:23 PM Dictation Location: [place] [address] Transcribed By: ALISHA 06/04/24 172 Dictated By: Lupe Landry II, MD 06/04/24 172 Signed By: 06/04/24 172 [facility] Work Phone: XR chest 2V*on 06-04-2024 XR chest 2V* [facility] Main [address] [address] XRay Report Signed Patient: Natividad Bonner MR#: [id number] : 1985 Acct:[id number] Age/Sex: 38 / F ADM Date: 06/04/24 [...] Lupe Landry M.D.06/04/2024 5:23 PM Dictation Location: [place] [address] Transcribed By: [facility] 06/04/24 172 Dictated By: Lupe Landry II, MD 06/04/24 172 Signed By: 06/04/24 172 Normal [facility] aPTT in Platelet poor plasma by Coagulation assayOrdered By: Earnestine Alonso on 06-04-2024 aPTT Coag (PPP) [Time] Activated partial thromboplastin time (aPTT) in platelet poor plasma by coagulation a 25.1-36.5 [facility] Comment on above: A hematocrit value g reater than 55% may lead to inaccurate results in coagulation testing. Patients having hematocrit values >55% require a special collection tube for coagulation studies. Please contact the laboratory at [phone] for redraw instructions. Alanine aminotransferase [En zymatic activity/volume] in Serum or PlasmaOrdered By: Molly Elaine on 03-31-2024 ALT [Catalytic activity/Vol] 17 U/L Normal 7-52 [facility] Comment on above: Order Comment: ADDI MORGANW Performed By: #### C BC, CMP #### [address] #### HIV SCREEN, HBCAB, IGM, HCVCASCADE #### [facility] , ALT [Catalytic activity/Vol] Alanine aminotransferase [Enzymatic activity/volume] in Serum or Plasma [facility] Albumin [Mass/volume] in Ser um or Plasma by Bromocresol green (BCG) dye binding methoOrdered By: Molly Elaine on 03-31-2024 Albumin BCG dye [Mass/Vol] 4.1 g/dL 3.5-5.7 [facility] Albumin BCG dye [Mass/Vol] Albumin [Mass/volume] in Serum or Plasma by Bromocresol green (BCG) dye binding metho 3.5-5.7 [facility] Alkaline phosphatase [Enzyma tic activity/volume] in Serum or PlasmaOrdered By: Molly Elaine on 03-31-2024 ALP [Catalytic activity/Vol] 80 U/L Normal [facility] Comment on above: Order Comment: ADDI STARKS Result Comment: PERF ORMED BY: [place] [address] PATHOLOGIST PHOTOGRAPHIC EQUIPMENT INSPECTOR EFRA RING M.D. Performed By: #### C BC, CMP #### [facility] [address] [place] [address] #### HIV SCREEN, HBCAB, IGM, HCVCASCADE #### [facility] , ALP [Catalytic activity/Vol] Alkaline phosphatase [Enzymatic activity/volume] in Serum or Plasma [facility] Aspartate aminotransferase [ Enzymatic activity/volume] in Serum or PlasmaOrdered By: Molly Elaine on 03-31-2024 AST [Catalytic activity/Vol] 14 U/L Normal [facility] Comment on above: Order Comment: ADDI STARKS Performed By: #### C BC, CMP #### [facility] [address] [place] [address] [place] #### HIV SCREEN, HBCAB, IGM, HCVCASCADE #### [facility] , AST [Catalytic activity/Vol] Aspartate aminotransferase [Enzymatic activity/volume] in Serum or Plasma [facility] Automated basophil %Ordered By: Molly Elaine on 03-31-2024 Basophils/100 WBC (Bld) 1.2 % Normal . [facility] Comment on above: Order Comment: FASTI NG. JKW Performed By: #### C BC, CMP #### [address] #### HIV SCREEN, HBCAB, IGM, HCVCASCADE #### [facility] , Automated basophil countOrde red By: Molly Chele on 03-31-2024 Basophils (Bld) [#/Vol] 0.1 10*3/uL Normal 0.0-0.2 [facility] Comment on above: Order Comment: FASTI NG. JKW Result Comment: PERF ORMED BY: [place] [address] PATHOLOGIST PHOTOGRAPHIC EQUIPMENT INSPECTOR EFRA RING M.D. Performed By: #### C BC, CMP #### [address] #### HIV SCREEN, HBCAB, IGM, HCVCASCADE #### [facility] , Automated blood monocyte cou ntOrdered By: Molly Elaine on 03-31-2024 Monocytes (Bld) [#/Vol] 0.5 10*3/uL Normal 0.0-0.8 [facility] Comment on above: Order Comment: FASTI NG. JKW Performed By: #### C BC, CMP #### [place] [address] [place] #### HIV SCREEN, HBCAB, IGM, HCVCASCADE #### [facility] , Automated eosinophil %Ordere d By: Molly Elaine on 03-31-2024 Eosinophils/100 WBC (Bld) 2.2 % Normal . [facility] Comment on above: Order Comment: FASTI NG. JKW Performed By: #### C BC, CMP #### [place] [address] [place] #### HIV SCREEN, HBCAB, IGM, HCVCASCADE #### [facility] , Automated eosinophil countOr dered By: Molly Elaine on 03-31-2024 Eosinophils (Bld) [#/Vol] 0.2 10*3/uL Normal 0.0-0.45 [facility] Comment on above: Order Comment: ADDI ANGELA. JKW Performed By: #### C BC, CMP #### [place] [address] [place] #### HIV SCREEN, HBCAB, IGM, HCVCASCADE #### [facility] , Automated monocyte %Ordered By: Molly Elaine on 03-31-2024 Monocytes/100 WBC (Bld) 5.2 % Normal . [facility] Comment on above: Order Comment: ADDI ANGELA. JKW Performed By: #### C BC, CMP #### [address] #### HIV SCREEN, HBCAB, IGM, HCVCASCADE #### [facility] , Automated neutrophil %Ordere d By: Molly Elaine on 03-31-2024 Neutrophils/100 WBC (Bld) 62.4 % Normal . [facility] Comment on above: Order Comment: ADDI ANGELA. JKW Performed By: #### C BC, CMP #### [place] [address] [place] #### HIV SCREEN, HBCAB, IGM, HCVCASCADE #### [facility] , Basophils Auto (Bld) [#/Vol] Ordered By: Molly Elaine on 03-31-2024 Basophils (Bld) [#/Vol] Automated basophil count 0.0-0.2 [facility] Basophils/100 WBC Auto (Bld) Ordered By: Molly Elaine on 03-31-2024 Basophils/100 WBC (Bld) Automated basophil % . [facility] Bilirubin.total [Mass/volume ] in Serum or PlasmaOrdered By: Molly Elaine on 03-31-2024 Bilirubin [Mass/Vol] 0.3 mg/dL Normal 0.3-1.0 [facility] Comment on above: Order Comment: ADDI ANGELA. JKW Performed By: #### C BC, CMP #### [address] #### HIV SCREEN, HBCAB, IGM, HCVCASCADE #### [facility] , Bilirubin [Mass/Vol] Bilirubin.total [Mass/volume] in Serum or Plasma 0.3-1.0 [facility] Calcium [Mass/volume] in Ser um or PlasmaOrdered By: Molly Elaine on 03-31-2024 Calcium [Mass/Vol] 8.8 mg/dL Normal 8.6-10.3 [facility] Comment on above: Order Comment: ADDI ANGELA. JKW Performed By: #### C BC, CMP #### [address] #### HIV SCREEN, HBCAB, IGM, HCVCASCADE #### [facility] , Calcium [Mass/Vol] Calcium [Mass/volume ] in Serum or Plasma 8.6-10.3 [facility] Carbon dioxide, total [Moles /volume] in Serum or PlasmaOrdered By: Molly Elaine on 03-31-2024 CO2 [Moles/Vol] 24.4 mmol/L Normal 21.0-31.0 [facility] Comment on above: Order Comment: ADDI ANGELA. JKW Performed By: #### C BC, CMP #### [place] [address] [place] #### HIV SCREEN, HBCAB, IGM, HCVCASCADE #### [facility] , CO2 [Moles/Vol] Carbon dioxide, tota l [Moles/volume] in Serum or Plasma 21.0-31.0 [facility] Chloride [Moles/volume] in S zaria or PlasmaOrdered By: Molly Elaine on 03-31-2024 Chloride [Moles/Vol] 103 mmol/L Normal 98-107 [facility] Comment on above: Order Comment: ADDI ANGELA. JKW Performed By: #### C BC, CMP #### [facility] [address] [place] [address] [place] #### HIV SCREEN, HBCAB, IGM, HCVCASCADE #### [facility] , Chloride [Moles/Vol] Chloride [Moles/vol ume] in Serum or Plasma 98-107 [facility] Complete Blood Count Auto Di ffon 03-31-2024 Mean Corpuscular HGB Conc 34.6 g/dL Normal 32.0-35.0 [facility] Comment on above: Order Comment: FASTI NG. JKW Performed By: #### C BC, CMP #### [place] [address] [place] #### HIV SCREEN, HBCAB, IGM, HCVCASCADE #### [facility] , NRBC% 0.1 /100{WBC} Normal 0-0.5 [facility] Comment on above: Order Comment: FASTI NG. JKW Performed By: #### C BC, CMP #### [place] [address] [place] #### HIV SCREEN, HBCAB, IGM, HCVCASCADE #### [facility] , Comprehensive Metabolic Pane goyo 03-31-2024 Albumin [Mass/Vol] 4.1 g/dL Normal 3.5-5.7 [facility] Comment on above: Order Comment: FASTI NG. JKW Performed By: #### C BC, CMP #### [place] [address] [place] #### HIV SCREEN, HBCAB, IGM, HCVCASCADE #### [facility] , GFR/1.73 sq M.predicted MDRD (S/P/Bld) [Vol rate/Area] mL/min/{1.73_m2} Normal [facility] Comment on above: Order Comment: FASTI NG. JKW Performed By: #### C BC, CMP #### [place] [address] [place] #### HIV SCREEN, HBCAB, IGM, HCVCASCADE #### [facility] , Creatinine [Mass/volume] in Serum or PlasmaOrdered By: Molly Elaine on 03-31-2024 Creatinine [Mass/Vol] 0.53 mg/dL Low 0.60-1.20 [facility] Comment on above: Order Comment: FASTI JULIO CÉSAR. JKW Performed By: #### C BC, CMP #### [facility] [address] [place] [address] #### HIV SCREEN, HBCAB, IGM, HCVCASCADE #### [facility] , Creatinine [Mass/Vol] Creatinine [Mass/v olume] in Serum or Plasma Low 0.60-1.20 [facility] Eosinophils Auto (Bld) [#/Vo l]Ordered By: Molly Elaine on 03-31-2024 Eosinophils (Bld) [#/Vol] Automated eosinophil count 0.0-0.45 [facility] Eosinophils/100 WBC Auto (Bl d)Ordered By: Molly Elaine on 03-31-2024 Eosinophils/100 WBC (Bld) Automated eosinophil % . [facility] Erythrocyte distribution wid th Auto (RBC) [Ratio]Ordered By: Molly Elaine on 03-31-2024 Erythrocyte distribution width (RBC) [Ratio] Erythrocyte distribution width [Ratio] by Automated count 11.9-15.3 [facility] Erythrocyte distribution wid th [Ratio] by Automated countOrdered By: Molly Elaine on 03-31-2024 Erythrocyte distribution width (RBC) [Ratio] 13.9 % Normal 11.9-15.3 [facility] Comment on above: Order Comment: FASTI JULIO CÉSAR. JKW Performed By: #### C BC, CMP #### [facility] [address] [place] [address] [place] #### HIV SCREEN, HBCAB, IGM, HCVCASCADE #### [facility] , Erythrocytes [#/volume] in B lood by Automated countOrdered By: Molly Elaine on 03-31-2024 RBC (Bld) [#/Vol] 4.97 10*6/uL Normal 3.60-5.00 [facility] Comment on above: Order Comment: ADDI TannerKW Performed By: #### C BC, CMP #### [address] #### HIV SCREEN, HBCAB, IGM, HCVCASCADE #### [facility] , Globulin Calc (S) [Mass/Vol] Ordered By: Molly Elaine on 03-31-2024 Globulin (S) [Mass/Vol] Serum globulin measurement by calculation (mass/volume) [facility] Glucose [Mass/volume] in Ser um or PlasmaOrdered By: Molly Elaine on 03-31-2024 Glucose [Mass/Vol] 182 mg/dL High 70-100 [facility] Comment on above: ADA recommended refe rence rangeRandom Glucose Reference Range is dependent on time and content of last meal. Glucose of more than 200 mg/dL in a nonstressed, ambulatory subject supports the diagnosis of Diabetes Mellitus. Order Comment: ADDI TannerKW Result Comment: [place] om Glucose Reference Range is dependent on time and content of last meal. Glucose of more than 200 mg/dL in a nonstressed, ambulatory subject supports the diagnosis of Diabetes Mellitus. ADA recommended reference range Performed By: #### C BC, CMP #### [place] [address] [place] #### HIV SCREEN, HBCAB, IGM, HCVCASCADE #### [facility] , Glucose [Mass/Vol] Glucose [Mass/volume ] in Serum or Plasma High 70-100 [facility] Comment on above: ADA recommended refe rence rangeRandom Glucose Reference Range is dependent on time and content of last meal. Glucose of more than 200 mg/dL in a nonstressed, ambulatory subject supports the diagnosis of Diabetes Mellitus. HCV Antibody Cascadeon 03-31 Hepatitis C Virus Antibody Non-Reactive Normal Non Reactive [facility] Comment on above: Order Comment: ADDI TannerKW Performed By: #### C BC, CMP #### [address] #### HIV SCREEN, HBCAB, IGM, HCVCASCADE #### [facility] , Interpretation Hepatitis C Comment Normal . [facility] Comment on above: Order Comment: ADDI TannerKW Result Comment: Not infected with HCV unless early or acute infection is suspected (which may be delayed in an immunocompromised individual), or other evidence exists to indicate HCV infection. Performed at: [place] [address] Floor Space Allocator: Oniel Saldana PhD, Phone: [phone] PERFORMED BY: [place] [address] PATHOLOGIST PHOTOGRAPHIC EQUIPMENT INSPECTOR EFRA RING M.D. Performed By: #### C SUMA, CMP #### [address] #### HIV SCREEN, HBCAB, IGM, HCVCASCADE #### [facility] , HIV 1/O/2 Antigen/Antibodyon 03-31-2024 HIV Screen 4th Generation Non-Reactive Normal Non Reactive [facility] Comment on above: Order Comment: ADDI ANGELA. JKW Result Comment: HIV- 1/HIV-2 antibodies and HIV-1 p24 antigen were NOT detected. There is no laboratory evidence of HIV infection. HIV Negative Performed at: [address] [id number] Floor Space Allocator: Oniel Saldana PhD, Phone: [phone] PERFORMED BY: [place] [address] PATHOLOGIST PHOTOGRAPHIC EQUIPMENT INSPECTOR EFRA RING M.D. Performed By: #### C BC, CMP #### [address] #### HIV SCREEN, HBCAB, IGM, HCVCASCADE #### [facility] , HIV antibody and antigen cobian elOrdered By: Molly Elaine on 03-31-2024 HIV 1+2 Ab+HIV1 p24 Ag IA Ql HIV 1 and HIV-2 antibody assay with HIV-1 p24 antigen detection Non Reactive [facility] Comment on above: HIV-1/HIV-2 antibodi es and HIV-1 p24 antigen were NOTdetected. There is no laboratory evidence of HIV infection.HIV NegativePerformed at: [facility] [id number] Director: Oniel Saldana PhD, Phone: [phone] Hematocrit Auto (Bld) [Volum e fraction]Ordered By: Molly Elaine on 03-31-2024 Hematocrit (Bld) [Volume fraction] Hematocrit [Volume Fraction] of Blood by Automated count 34.0-46.4 [facility] Hematocrit [Volume Fraction] of Blood by Automated countOrdered By: Molly Elaine on 03-31-2024 Hematocrit (Bld) [Volume fraction] 44.7 % Normal 34.0-46.4 [facility] Comment on above: Order Comment: ADDI STARKS Performed By: #### C BC, CMP #### [facility] [address] [place] [address] #### HIV SCREEN, HBCAB, IGM, HCVCASCADE #### [facility] , Hemoglobin [Mass/volume] in BloodOrdered By: Molly Elaine on 03-31-2024 Hemoglobin (Bld) [Mass/Vol] 15.5 g/dL High 11.8-15.4 [facility] Comment on above: Order Comment: ADDI STARKS Performed By: #### C BC, CMP #### [place] [address] [place] #### HIV SCREEN, HBCAB, IGM, HCVCASCADE #### [facility] , Hemoglobin (Bld) [Mass/Vol] Hemoglobin [Mass/volume] in Blood High 11.8-15.4 [facility] Hepatitis B Core Antibodyon 03-31-2024 Hepatitis B Core Antibody Negative Normal Negative [facility] Comment on above: Order Comment: ADDI STARKS Result Comment: Perf ormed at: [facility] [address] [id number] Floor Space Allocator: Oniel Saldana PhD, Phone: [phone] PERFORMED BY: [place] [address] PATHOLOGIST PHOTOGRAPHIC EQUIPMENT INSPECTOR EFRA RING M.D. Performed By: #### C BC, CMP #### [address] #### HIV SCREEN, HBCAB, IGM, HCVCASCADE #### [facility] , Hepatitis B virus core antib anjelica assayOrdered By: Molly Elaine on 03-31-2024 Hepatitis B Core Total Antibody Negative Negative [facility] Comment on above: Performed at: [facility] [place] [id number] Director: Oniel Saldana PhD, Phone: [phone] Hepatitis C virus IgG Ab [Pr esence] in Serum or Plasma by ImmunoassayOrdered By: Molly Elaine on 03-31-2024 HCV IgG IA Ql Hepatitis C virus Ig G Ab [Presence] in Serum or Plasma by Immunoassay Non Reactive [facility] Immunoglobulin M, Serumon Immunoglobulin M, Serum 65 mg/dL Normal 26-217 [facility] Comment on above: Order Comment: ADDI NGUYEN JKW Result Comment: Perf ormed at: - [facility] [address] [id number] Floor Space Allocator: Oniel Saldana PhD, Phone: [phone] Performed By: #### C BC, CMP #### [address] #### HIV SCREEN, HBCAB, IGM, HCVCASCADE #### [facility] , Leukocytes [#/volume] correc jacy for nucleated erythrocytes in Blood by Automated counOrdered By: Molly Elaine on 03-31-2024 WBC corrected for nucl RBC Auto (Bld) [#/Vol] 9.9 10*3/uL 3.8-11.6 [facility] WBC corrected for nucl RBC Auto (Bld) [#/Vol] Leukocytes [#/volume] corrected for nucleated erythrocytes in Blood by Automated coun 3.8-11.6 [facility] Leukocytes [#/volume] in Blo od by Automated countOrdered By: Molly Elaine on 03-31-2024 WBC (Bld) [#/Vol] 9.9 10*3/uL Normal 3.8-11.6 [facility] Comment on above: Order Comment: ADDI TannerKW Performed By: #### C BC, CMP #### [address] #### HIV SCREEN, HBCAB, IGM, HCVCASCADE #### [facility] , Lymphocytes Auto (Bld) [#/Vo l]Ordered By: Molly Elaine on 03-31-2024 Lymphocytes (Bld) [#/Vol] Lymphocytes [#/volume] in Blood by Automated count 1.00-4.8 [facility] Lymphocytes [#/volume] in Bl ood by Automated countOrdered By: Molly Elaine on 03-31-2024 Lymphocytes (Bld) [#/Vol] 2.9 10*3/uL Normal 1.00-4.8 [facility] Comment on above: Order Comment: ADDI TannerKW Performed By: #### C BC, CMP #### [place] [address] [place] #### HIV SCREEN, HBCAB, IGM, HCVCASCADE #### [facility] , Lymphocytes/100 WBC Auto (Bl d)Ordered By: Molly Elaine on 03-31-2024 Lymphocytes/100 WBC (Bld) Lymphocytes/100 leukocytes in Blood by Automated count . [facility] Lymphocytes/100 leukocytes i n Blood by Automated countOrdered By: Molly Elaine on 03-31-2024 Lymphocytes/100 WBC (Bld) 29.0 % Normal . [facility] Comment on above: Order Comment: ADDI NGUYEN JKW Performed By: #### C BC, CMP #### [place] [address] [place] #### HIV SCREEN, HBCAB, IGM, HCVCASCADE #### [facility] , MCH Auto (RBC) [Entitic mass ]Ordered By: Molly Elaine on 03-31-2024 MCH (RBC) [Entitic mass] MCH [Entitic mass] by Automated count 24.7-34.3 [facility] MCH [Entitic mass] by Automa jacy countOrdered By: Molly Elaine on 03-31-2024 MCH (RBC) [Entitic mass] 31.1 pg Normal 24.7-34.3 [facility] Comment on above: Order Comment: ADDI STARKS Performed By: #### C BC, CMP #### [address] #### HIV SCREEN, HBCAB, IGM, HCVCASCADE #### [facility] , MCHC Auto (RBC) [Mass/Vol]Or dered By: Molly Elaine on 03-31-2024 MCHC (RBC) [Mass/Vol] 34.6 g/dL 32.0-35.0 [facility] MCHC (RBC) [Mass/Vol] MCHC [Mass/volume] by Automated count 32.0-35.0 [facility] MCV Auto (RBC) [Entitic vol] Ordered By: Molly Elaine on 03-31-2024 MCV (RBC) [Entitic vol] MCV [Entitic volume] by Automated count 80-100 [facility] MCV [Entitic volume] by Auto mated countOrdered By: Molly Elaine on 03-31-2024 MCV (RBC) [Entitic vol] 90.0 fL Normal 80-100 [facility] Comment on above: Order Comment: ADDI STARKS Performed By: #### C BC, CMP #### [place] [address] [place] #### HIV SCREEN, HBCAB, IGM, HCVCASCADE #### [facility] , Monocytes Auto (Bld) [#/Vol] Ordered By: Molly Elaine on 03-31-2024 Monocytes (Bld) [#/Vol] Automated blood monocyte count 0.0-0.8 [facility] Monocytes/100 WBC Auto (Bld) Ordered By: Molly Maerena on 03-31-2024 Monocytes/100 WBC (Bld) Automated monocyte % . [facility] Neutrophils Auto (Bld) [#/Vo l]Ordered By: Molly Chele on 03-31-2024 Neutrophils (Bld) [#/Vol] Neutrophils [#/volume] in Blood by Automated count 1.8-7.7 [facility] Neutrophils [#/volume] in Bl ood by Automated countOrdered By: Molly Maerena on 03-31-2024 Neutrophils (Bld) [#/Vol] 6.1 10*3/uL Normal 1.8-7.7 [facility] Comment on above: Order Comment: ADDI TannerKW Performed By: #### C BC, CMP #### [address] #### HIV SCREEN, HBCAB, IGM, HCVCASCADE #### [facility] , Neutrophils/100 WBC Auto (Bl d)Ordered By: Molly Chele on 03-31-2024 Neutrophils/100 WBC (Bld) Automated neutrophil % . [facility] No Panel InformationOrdered By: Molly Elaine on 03-31-2024 Estimated GFR (CKD-EPI) > 60.0 mL/Min [facility] Hepatitis C Interpretation Comment . [facility] Comment on above: Not infected with HC V unless early or acute infection issuspected (which may be delayed in an immunocompromisedindividual), or other evidence exists to indicate HCVinfection.Performed at: - [facility] [id number] Director: Oniel Saldana PhD, Phone: [phone] Pharmacy Creatinine Clearance (Chem N/A [facility] Nucleated erythrocytes [Pres ence] in Blood by Automated countOrdered By: Molly Elaine on 03-31-2024 Nucleated RBC Auto Ql (Bld) 0.1 /100{WBC} 0-0.5 [facility] Nucleated RBC Auto Ql (Bld) Nucleated erythrocytes [Presence] in Blood by Automated count 0-0.5 [facility] Platelet mean volume Auto (B ld) [Entitic vol]Ordered By: Molly Chele on 03-31-2024 Platelet mean volume (Bld) [Entitic vol] Platelet mean volume [Entitic volume] in Blood by Automated count 6.3-10.7 [facility] Platelet mean volume [Entiti c volume] in Blood by Automated countOrdered By: Molly Chele on 03-31-2024 Platelet mean volume (Bld) [Entitic vol] 7.7 fL Normal 6.3-10.7 [facility] Comment on above: Order Comment: ADDI STARKS Performed By: #### C BC, CMP #### [address] #### HIV SCREEN, HBCAB, IGM, HCVCASCADE #### [facility] , Platelets Auto (Bld) [#/Vol] Ordered By: Molly Elaine on 03-31-2024 Platelets (Bld) [#/Vol] Platelets [#/volume] in Blood by Automated count 150-450 [facility] Platelets [#/volume] in Bloo d by Automated countOrdered By: Molly Chele on 03-31-2024 Platelets (Bld) [#/Vol] 313 10*3/uL Normal 150-450 [facility] Comment on above: Order Comment: ADDI MORGANW Performed By: #### C BC, CMP #### [facility] [address] [place] [address] [place] #### HIV SCREEN, HBCAB, IGM, HCVCASCADE #### [facility] , Potassium [Moles/volume] in Serum or PlasmaOrdered By: Molly Elaine on 03-31-2024 Potassium [Moles/Vol] 4.1 mmol/L Normal 3.5-5.1 [facility] Comment on above: Order Comment: ADDI STARKS Performed By: #### C BC, CMP #### [place] [address] [place] #### HIV SCREEN, HBCAB, IGM, HCVCASCADE #### [facility] , Potassium [Moles/Vol] Potassium [Moles/v olume] in Serum or Plasma 3.5-5.1 [facility] Protein [Mass/volume] in Ser um or PlasmaOrdered By: Molly Maerena on 03-31-2024 Protein [Mass/Vol] 6.6 g/dL Normal 6.4-8.9 [facility] Comment on above: Order Comment: ADDI TannerKW Performed By: #### C SUMA, CMP #### [place] [address] [place] #### HIV SCREEN, HBCAB, IGM, HCVCASCADE #### [facility] , Protein [Mass/Vol] Protein [Mass/volume ] in Serum or Plasma 6.4-8.9 [facility] Quantitative serum or plasma hepatitis C virus RNA assay by real-time PCR (units/voluOrdered By: Molly Maemarquitalata on 03-31-2024 HCV RNA HARJINDER+probe Qn Hepatitis C virus R NA [Units/volume] (viral load) in Serum or Plasma by HARJINDER with prob [facility] RBC Auto (Bld) [#/Vol]Ordere d By: Molly Maerena on 03-31-2024 RBC (Bld) [#/Vol] Erythrocytes [#/volu me] in Blood by Automated count 3.60-5.00 [facility] Serum globulin measurement b y calculation (mass/volume)Ordered By: Molly Maerena on 03-31-2024 Globulin (S) [Mass/Vol] 2.5 g/dL Normal [facility] Comment on above: Order Comment: ADDI TannerKW Performed By: #### C BC, CMP #### [place] [address] [place] #### HIV SCREEN, HBCAB, IGM, HCVCASCADE #### [facility] , Serum or plasma IgM measurem ent (mass/volume)Ordered By: Molly Elaine on 03-31-2024 IgM [Mass/Vol] IgM [Mass/volume] in Serum or Plasma 26-217 [facility] Comment on above: Performed at: [address] [id number] Director: Oniel Saldana PhD, Phone: [phone] Serum or plasma albumin/glob ulin mass ratioOrdered By: Molly Elaine on 03-31-2024 Albumin/Globulin [Mass ratio] 1.6 {ratio} Normal [facility] Comment on above: Order Comment: ADDI TannerKW Performed By: #### C SUMA, CMP #### [address] #### HIV SCREEN, HBCAB, IGM, HCVCASCADE #### [facility] , Albumin/Globulin [Mass ratio] Serum or plasma albumin/globulin mass ratio [facility] Serum or plasma anion gap de terminationOrdered By: Molly Elaine on 03-31-2024 Anion gap [Moles/Vol] 12.7 mmol/L Normal 6.0-15.0 [facility] Comment on above: Order Comment: ADDI TannerKW Performed By: #### C BC, CMP #### [place] [address] [place] #### HIV SCREEN, HBCAB, IGM, HCVCASCADE #### [facility] , Anion gap [Moles/Vol] Serum or plasma an ion gap determination 6.0-15.0 [facility] Serum or plasma hepatitis C virus RNA measurement by probe and target amplification mOrdered By: Molly Elaine on 03-31-2024 HCV RNA HARJINDER+probe [Log units/Vol] Hepatitis C virus RNA [log units/volume] (viral load) in Serum or Plasma by HARJINDER with [facility] Sodium [Moles/volume] in Ser um or PlasmaOrdered By: Molly Elaine on 03-31-2024 Sodium [Moles/Vol] 136 mmol/L Normal 136-145 [facility] Comment on above: Order Comment: FASTSonya ANGELA. JKW Performed By: #### C BC, CMP #### [facility] [address] [place] [address] [place] #### HIV SCREEN, HBCAB, IGM, HCVCASCADE #### [facility] , Sodium [Moles/Vol] Sodium [Moles/volume ] in Serum or Plasma 136-145 [facility] Urea nitrogen [Mass/volume] in Serum or PlasmaOrdered By: Molly Elaine on 03-31-2024 Urea nitrogen [Mass/Vol] 10 mg/dL Normal 12-25 [facility] Comment on above: Order Comment: FASTI JULIO CÉSAR. JKW Performed By: #### C BC, CMP #### [place] [address] [place] #### HIV SCREEN, HBCAB, IGM, HCVCASCADE #### [facility] , Urea nitrogen [Mass/Vol] Urea nitrogen [Mass/volume] in Serum or Plasma 12-25 [facility] WBC Auto (Bld) [#/Vol]Ordere d By: Molly Chele on 03-31-2024 WBC (Bld) [#/Vol] Leukocytes [#/volume ] in Blood by Automated count 3.8-11.6 [facility] Capillary blood glucose anuradha urement by glucometer (mass/volume)Ordered By: NII Steinberg on 01-31-2024 Glucose [Mass/Vol] 180 mg/dL Normal [facility] Comment on above: Random Glucose Refer ence Range is dependent on time and content of last meal. Glucose of more than 200 mg/dL in a nonstressed, ambulatory subject supports the diagnosis of Diabetes Mellitus. Result Comment: [place] om Glucose Reference Range is dependent on time and content of last meal. Glucose of more than 200 mg/dL in a nonstressed, ambulatory subject supports the diagnosis of Diabetes Mellitus. PERFORMED BY: [place] [address] PATHOLOGIST PHOTOGRAPHIC EQUIPMENT INSPECTOR EFRA RING M.D. Performed By: #### G LULS #### Point of Care testing , GLUCOSE POCT GLUCOMETERSon 0 01-31-2024 Glucose [Mass/Vol] 180 mg/dL [facility] Comment on above: Random Glucose Refer ence Range is dependent on time and content of last meal. Glucose of more than 200 mg/dL in a nonstressed, ambulatory subject supports the diagnosis of Diabetes Mellitus. [facility] HCG ( test) IA.rapi d Ql (U)Ordered By: MAICO Steinberg on 01-31-2024 HCG ( test) Ql (U) Negative [facility] HCG,Urineon 01-31-2024 Beta HCG ( test) Ql (U) Negative Normal [facility] Comment on above: Result Comment: PERF ORMED BY: [place] [address] PATHOLOGIST PHOTOGRAPHIC EQUIPMENT INSPECTOR EFRA RING M.D. Performed By: #### U HCG #### [place] [address] [place] 01-31-2024 L Specimen: [id number] Received: 01/31/24 Status: CRISTOFER [place] Num: [id number] Spec Type: Surgical Subm Dr: MAICO Bishop Tissues: A Endometrium - Curettings (ENDOMETRIAL CURETTINGS) Procedures: HE/2, Gross/Micro L4 Age/ Patient Sex Location Account Attending Physician Natividad Bonner 38/F [place] [id number] MAICO Bishop SPEC NUM: [id number] RECD: 01/31/24 STATUS: [facility] NUM: [id number] KLARISSA: 01/31/24- SUBM DR: MAICO Bishop ENTERED: 01/31/24 [facility] DR: SPEC TYPE: Surgical DEPT: S ORDERED: HE/2, Gross/Micro L4 ORDERED: HE/2, Gross/Micro L4 Pathological Diagnosis Endometrial curettings: -Abundant [...] entirely submitted in cassette A1. DM Specimen: [id number] Received: 01/31/24 Status: CRISTOFER [place] Num: [id number] Spec Type: Surgical Subm Dr: Mely Steinberg MD-[facility] Tissues: A Endometrium - Curettings (ENDOMETRIAL CURETTINGS) Procedures: HE/2, Gross/Micro L4 Patient: Natividad Bonner [id number] (Continued) Specimen: [id number] Received: 01/31/24 (Continued) Signed (signature on file) María Soto MD 02/10/242026 Specimen: [id number] Received: 01/31/24 Status: CRISTOFER [place] Num: [id number] Spec Type: Surgical Subm Dr: Mely Steinberg MD-JACKELIN Tissues: A Endometrium - Curettings (ENDOMETRIAL CURETTINGS) Procedures: HE/2, Gross/Micro L4 Patient: Natividad Bonner [id number] (Continued) Specimen: [id number] Received: 01/31/24 (Continued) Microscopic Description Microscopic examinations are performed supporting the above interpretation CPT Codes 05576 Specimen: [id number] Received: 01/31/24 Status: CRISTOFER [place] Num: [id number] Spec Type: Surgical Subm Dr: MAICO Bishop Tissues: A Endometrium - Curettings (ENDOMETRIAL CURETTINGS) Procedures: HE/2, Gross/Micro L4 Patient: Natividad Bonner [id number] (Continued) Signed (signature on file) María Soto MD 02/10/242026 Normal [facility] hCG, quantitative, on 01-31-2024 Beta HCG ( test) Ql (U) Negative [facility] Alanine aminotransferase [En zymatic activity/volume] in Serum or PlasmaOrdered By: MAICO Steinberg on 01-21-2024 ALT [Catalytic activity/Vol] 14 U/L [facility] Albumin [Mass/volume] in Ser um or Plasma by Bromocresol green (BCG) dye binding methoOrdered By: MAICO Steinberg on 01-21-2024 Albumin BCG dye [Mass/Vol] 4.1 g/dL 3.5-5.7 [facility] Alkaline phosphatase [Enzyma tic activity/volume] in Serum or PlasmaOrdered By: MAICO Steinberg on 01-21-2024 ALP [Catalytic activity/Vol] 79 U/L 34-104 [facility] Aspartate aminotransferase [ Enzymatic activity/volume] in Serum or PlasmaOrdered By: MAICO Steinberg on 01-21-2024 AST [Catalytic activity/Vol] 10 U/L Low 13-39 [facility] Basophils Auto (Bld) [#/Vol] Ordered By: MAICO Steinberg on 01-21-2024 Basophils (Bld) [#/Vol] 0.1 10*3/uL 0.0-0.2 [facility] Basophils/100 WBC Auto (Bld) Ordered By: MAICO Steinberg on 01-21-2024 Basophils/100 WBC (Bld) 1.0 % . [facility] Bilirubin.total [Mass/volume ] in Serum or PlasmaOrdered By: MAICO Steinberg on 01-21-2024 Bilirubin [Mass/Vol] 0.3 mg/dL 0.3-1.0 [facility] CBC W Auto Differential pane l (Bld)on 01-21-2024 Basophils (Bld) [#/Vol] 0.1 10*3/uL 0.0 - 0.2 10*3/uL [facility] Basophils/100 WBC Manual cnt (Syn fld) 1.0 % . [facility] Eosinophils (Bld) [#/Vol] 0.3 10*3/uL 0.0 - 0.45 10*3/uL [facility] Eosinophils/100 WBC Manual cnt (Syn fld) 2.5 % . [facility] Erythrocyte distribution width (RBC) [Ratio] 13.8 % 11.9 - 15.3 % [facility] Hematocrit (Bld) [Volume fraction] 42.0 % 34.0 - 46.4 % [facility] Hemoglobin (Bld) [Mass/Vol] 14.7 g/dL 11.8 - 15.4 g/dL [facility] Lymphocytes (Bld) [#/Vol] 2.5 10*3/uL 1.00 - 4.8 10*3/uL [facility] Lymphocytes/100 WBC Manual cnt (Syn fld) 25.3 % . [facility] MCH (RBC) [Entitic mass] 30.6 pg 24.7 - 34.3 pg [facility] MCHC (RBC) [Mass/Vol] 35.0 g/dL 32.0 - 35.0 g/dL [facility] MCV (RBC) [Entitic vol] 87.4 fL 80 - 100 fL [facility] Monocytes (Bld) [#/Vol] 0.5 10*3/uL 0.0 - 0.8 10*3/uL [facility] Monocytes+Macrophages/ 100 WBC Manual cnt (Syn fld) 5.3 % . [facility] Neutrophils (Bld) [#/Vol] 6.5 10*3/uL 1.8 - 7.7 10*3/uL [facility] Neutrophils/100 WBC Manual cnt (Syn fld) 65.9 % . [facility] NRBC 0.1 /100{WBC} 0 - 0.5 /100{WBC} [facility] Platelet mean volume (Bld) [Entitic vol] 7.3 fL 6.3 - 10.7 fL [facility] Platelets (Bld) [#/Vol] 304 10*3/uL 150 - 450 10*3/uL [facility] RBC LM.HPF (Urine sed) [#/Area] 4.80 /[HPF] 3.60 - 5.00 [facility] WBC (Bld) [#/Vol] 9.9 10*3/uL 3.8 - 11.6 10*3/uL [facility] WBC LM.HPF (Urine sed) [#/Area] 9.9 10*3/uL 3.8 - 11.6 10*3/uL [facility] Calcium [Mass/volume] in Ser um or PlasmaOrdered By: MAICO Steinberg on 01-21-2024 Calcium [Mass/Vol] 8.9 mg/dL 8.6-10.3 [facility] Carbon dioxide, total [Moles /volume] in Serum or PlasmaOrdered By: MAICO Steinberg on 01-21-2024 CO2 [Moles/Vol] 21.3 mmol/L 21.0-31.0 [facility] Chloride [Moles/volume] in S zaria or PlasmaOrdered By: MAICO Steinberg on 01-21-2024 Chloride [Moles/Vol] 104 mmol/L 98-107 [facility] Comprehensive metabolic pane goyo 01-21-2024 Albumin [Mass/Vol] 4.1 g/dL 3.5 - 5.7 g/dL [facility] Albumin/Globulin [Mass ratio] 1.6 {ratio} [facility] ALP [Catalytic activity/Vol] 79 U/L 34 - 104 U/L [facility] ALT [Catalytic activity/Vol] 14 U/L 7 - 52 U/L [facility] Anion gap [Moles/Vol] 14.8 mmol/L 6.0 - 15.0 [facility] AST [Catalytic activity/Vol] 10 U/L Low 13 - 39 U/L [facility] Bilirubin [Mass/Vol] 0.3 mg/dL 0.3 - 1 .0 mg/dL [facility] Calcium [Mass/Vol] 8.9 mg/dL 8.6 - 10. 3 mg/dL [facility] Chloride [Moles/Vol] 104 mmol/L 98 - 10 7 mmol/L [facility] CO2 [Moles/Vol] 21.3 mmol/L 21.0 - 31.0 mmol/L [facility] Creatinine (U) [Mass/Vol] 0.58 mg/dL Low 0.60 - 1.20 mg/dL [facility] GFR/1.73 sq M.predicted MDRD (S/P/Bld) [Vol rate/Area] mL/min/{1.73_m2} [facility] Globulin (S) [Mass/Vol] 2.5 g/dL [facility] Glucose [Mass/Vol] 199 mg/dL High 70 - 100 mg/dL [facility] Comment on above: Random Glucose Refer ence Range is dependent on time and content of last meal. Glucose of more than 200 mg/dL in a nonstressed, ambulatory subject supports the diagnosis of Diabetes Mellitus. ADA recommended reference range Interpretation and review of laboratory results Abnormal [facility] Potassium [Moles/Vol] 4.1 mmol/L 3.5 - 5.1 mmol/L [facility] Protein [Mass/Vol] 6.6 g/dL 6.4 - 8.9 g/dL [facility] Sodium [Moles/Vol] 136 mmol/L 136 - 145 mmol/L [facility] Urea nitrogen [Mass/Vol] 11 mg/dL 7 - 25 mg/dL [facility] Creatinine [Mass/volume] in Serum or PlasmaOrdered By: MAICO Steinberg on 01-21-2024 Creatinine [Mass/Vol] 0.58 mg/dL Low 0.60-1.20 [facility] Eosinophils Auto (Bld) [#/Vo l]Ordered By: MAICO Steinberg on 01-21-2024 Eosinophils (Bld) [#/Vol] 0.3 10*3/uL 0.0-0.45 [facility] Eosinophils/100 WBC Auto (Bl d)Ordered By: MAICO Steinberg on 01-21-2024 Eosinophils/100 WBC (Bld) 2.5 % . [facility] Erythrocyte distribution wid th Auto (RBC) [Ratio]Ordered By: MAICO Steinberg on 01-21-2024 Erythrocyte distribution width (RBC) [Ratio] 13.8 % 11.9-15.3 [facility] Globulin Calc (S) [Mass/Vol] Ordered By: MAICO Steinberg on 01-21-2024 Globulin (S) [Mass/Vol] 2.5 g/dL [facility] Glucose [Mass/volume] in Ser um or PlasmaOrdered By: MAICO Steinberg on 01-21-2024 Glucose [Mass/Vol] 199 mg/dL High 70-100 [facility] Comment on above: ADA recommended refe rence rangeRandom Glucose Reference Range is dependent on time and content of last meal. Glucose of more than 200 mg/dL in a nonstressed, ambulatory subject supports the diagnosis of Diabetes Mellitus. Hematocrit Auto (Bld) [Volum e fraction]Ordered By: MAICO Steinberg on 01-21-2024 Hematocrit (Bld) [Volume fraction] 42.0 % 34.0-46.4 [facility] Hemoglobin [Mass/volume] in BloodOrdered By: MAICO Steinberg on 01-21-2024 Hemoglobin (Bld) [Mass/Vol] 14.7 g/dL 11.8-15.4 [facility] Leukocytes [#/volume] correc jacy for nucleated erythrocytes in Blood by Automated counOrdered By: AMICO Steinberg on 01-21-2024 WBC corrected for nucl RBC Auto (Bld) [#/Vol] 9.9 10*3/uL 3.8-11.6 [facility] Lymphocytes Auto (Bld) [#/Vo l]Ordered By: MAICO Steinberg on 01-21-2024 Lymphocytes (Bld) [#/Vol] 2.5 10*3/uL 1.00-4.8 [facility] Lymphocytes/100 WBC Auto (Bl d)Ordered By: MAICO Steinberg on 01-21-2024 Lymphocytes/100 WBC (Bld) 25.3 % . [facility] MCH Auto (RBC) [Entitic mass ]Ordered By: MAICO Steinberg on 01-21-2024 MCH (RBC) [Entitic mass] 30.6 pg 24.7-34.3 [facility] MCHC Auto (RBC) [Mass/Vol]Or dered By: MAICO Steinberg on 01-21-2024 MCHC (RBC) [Mass/Vol] 35.0 g/dL 32.0-35.0 [facility] MCV Auto (RBC) [Entitic vol] Ordered By: MAICO Steinberg on 01-21-2024 MCV (RBC) [Entitic vol] 87.4 fL 80-100 [facility] Monocytes Auto (Bld) [#/Vol] Ordered By: MAICO Steinberg on 01-21-2024 Monocytes (Bld) [#/Vol] 0.5 10*3/uL 0.0-0.8 [facility] Monocytes/100 WBC Auto (Bld) Ordered By: MAICO Steinberg on 01-21-2024 Monocytes/100 WBC (Bld) 5.3 % . [facility] Neutrophils Auto (Bld) [#/Vo l]Ordered By: MAICO Steinberg on 01-21-2024 Neutrophils (Bld) [#/Vol] 6.5 10*3/uL 1.8-7.7 [facility] Neutrophils/100 WBC Auto (Bl d)Ordered By: MAICO Steinberg on 01-21-2024 Neutrophils/100 WBC (Bld) 65.9 % . [facility] No Panel InformationOrdered By: MAICO Steinberg on 01-21-2024 Estimated GFR (CKD-EPI) > 60.0 mL/Min [facility] Creatinine Clearance (Chem N/A [facility] Nucleated erythrocytes [Pres ence] in Blood by Automated countOrdered By: MAICO Steinberg on 01-21-2024 Nucleated RBC Auto Ql (Bld) 0.1 /100{WBC} 0-0.5 [facility] Platelet mean volume Auto (B ld) [Entitic vol]Ordered By: MAICO Steinberg on 01-21-2024 Platelet mean volume (Bld) [Entitic vol] 7.3 fL 6.3-10.7 [facility] Platelets Auto (Bld) [#/Vol] Ordered By: MAICO Steinberg on 01-21-2024 Platelets (Bld) [#/Vol] 304 10*3/uL 150-450 [facility] Potassium [Moles/volume] in Serum or PlasmaOrdered By: MAICO Steinberg on 01-21-2024 Potassium [Moles/Vol] 4.1 mmol/L 3.5-5.1 [facility] Protein [Mass/volume] in Ser um or PlasmaOrdered By: MAICO Steinberg on 01-21-2024 Protein [Mass/Vol] 6.6 g/dL 6.4-8.9 [facility] RBC Auto (Bld) [#/Vol]Ordere d By: MAICO Steinberg on 01-21-2024 RBC (Bld) [#/Vol] 4.80 10*6/uL 3.60-5.00 [facility] Serum or plasma albumin/glob ulin mass ratioOrdered By: MAICO Steinberg on 01-21-2024 Albumin/Globulin [Mass ratio] 1.6 {ratio} [facility] Serum or plasma anion gap de terminationOrdered By: MAICO Steinberg on 01-21-2024 Anion gap [Moles/Vol] 14.8 mmol/L 6.0-15.0 [facility] Sodium [Moles/volume] in Ser um or PlasmaOrdered By: MAICO Steinberg on 01-21-2024 Sodium [Moles/Vol] 136 mmol/L 136-145 [facility] Urea nitrogen [Mass/volume] in Serum or PlasmaOrdered By: MAICO Steinberg on 01-21-2024 Urea nitrogen [Mass/Vol] 11 mg/dL 7-25 [facility] WBC Auto (Bld) [#/Vol]Ordere d By: MAICO Steinberg on 01-21-2024 WBC (Bld) [#/Vol] 9.9 10*3/uL 3.8-11.6 [facility] Albumin [Mass/volume] in Ser um or Plasma by Bromocresol green (BCG) dye binding methoOrdered By: Nigel Lawson on 10-18-2023 Albumin BCG dye [Mass/Vol] 4.4 g/dL 3.5-5.7 [facility] Calcium [Mass/volume] in Ser um or PlasmaOrdered By: Nigel Lawson on 10-18-2023 Calcium [Mass/Vol] 9.3 mg/dL 8.6-10.3 [facility] Carbon dioxide, total [Moles /volume] in Serum or PlasmaOrdered By: Nigel Lawson on 10-18-2023 CO2 [Moles/Vol] 23.3 mmol/L 21.0-31.0 [facility] Chloride [Moles/volume] in S zaria or PlasmaOrdered By: Nigel Lawson on 10-18-2023 Chloride [Moles/Vol] 106 mmol/L 98-107 [facility] Cholesterol [Mass/volume] in Serum or PlasmaOrdered By: Nigel Lawson on 10-18-2023 Cholesterol [Mass/Vol] 125 mg/dL 140-200 [facility] Comment on above: Chol less than 200 m g/dl low riskChol 201-239 mg/dl borderline riskChol 240 mg/dl and greater high risk Cholesterol in LDL Calc [Mas s/Vol]Ordered By: Nigel Lawson on 10-18-2023 Cholesterol in LDL [Mass/Vol] 61 mg/dL 0-100 [facility] Comment on above: LDL ATP III CLASSIFI CATIONLDL less than 100 mg/dL OptimalLDL 100-129 mg/dL Near or above optimalLDL 130-159 mg/dL Borderline highLDL 160-189 mg/dL HighLDL greater than 189 mg/dL Very high Cholesterol in VLDL Calc [Ma ss/Vol]Ordered By: Nigel Lawson on 10-18-2023 Cholesterol in VLDL [Mass/Vol] 32 mg/dL [facility] Creatinine [Mass/volume] in Serum or PlasmaOrdered By: Nigel Lawson on 10-18-2023 Creatinine [Mass/Vol] 0.63 mg/dL 0.60-1.20 [facility] Creatinine [Mass/volume] in UrineOrdered By: Nigel Lawson on 10-18-2023 Creatinine (U) [Mass/Vol] 51.0 mg/dL [facility] Comment on above: No reference range e stablished Glucose [Mass/volume] in Ser um or PlasmaOrdered By: Nigel Lawson on 10-18-2023 Glucose [Mass/Vol] 126 mg/dL 70-100 [facility] Comment on above: ADA recommended refe rence rangeRandom Glucose Reference Range is dependent on time and content of last meal. Glucose of more than 200 mg/dL in a nonstressed, ambulatory subject supports the diagnosis of Diabetes Mellitus. Microalbumin [Mass/volume] i n UrineOrdered By: Nigel Lawson on 10-18-2023 Albumin DL <= 20 mg/L (U) [Mass/Vol] mg/dL 0.0-1.8 [facility] No Panel InformationOrdered By: Nigel Lawson on 10-18-2023 Estimated GFR (CKD-EPI) > 60.0 mL/Min [facility] Creatinine Clearance (Chem N/A [facility] Phosphate [Mass/volume] in S zaria or PlasmaOrdered By: Nigel Lawson on 10-18-2023 Phosphate [Mass/Vol] 3.8 mg/dL 2.5-4.5 [facility] Potassium [Moles/volume] in Serum or PlasmaOrdered By: Nigel Lawson on 10-18-2023 Potassium [Moles/Vol] 4.2 mmol/L 3.5-5.1 [facility] Serum or plasma anion gap de terminationOrdered By: Nigel Lawson on 10-18-2023 Anion gap [Moles/Vol] 11.9 mmol/L 6.0-15.0 [facility] Serum or plasma high density lipoprotein (HDL) cholesterol measurementOrdered By: Nigel Lawson on 10-18-2023 Cholesterol in HDL [Mass/Vol] 32 mg/dL 23- [facility] Comment on above: HDL CHOL ATP-III CLA SSIFICATION Cardiovascular RiskHDL > or equal to 60 mg/dL LOWHDL < 40 mg/dL HIGH Serum or plasma total choles terol/high density lipoprotein (HDL) cholesterol mass ratOrdered By: Nigel Lawson on 10-18-2023 Cholesterol.total/Chol esterol in HDL [Mass ratio] 3.9 {ratio} <5.0 [facility] Sodium [Moles/volume] in Ser um or PlasmaOrdered By: Nigel Lawson on 10-18-2023 Sodium [Moles/Vol] 137 mmol/L 136-145 [facility] Triglyceride [Mass/volume] i n Serum or PlasmaOrdered By: Nigel Lawson on 10-18-2023 Triglyceride [Mass/Vol] 162 mg/dL 0-149 [facility] Comment on above: TRIG ATP III CLASSIF ICATIONTRIG less than 150 mg/dL NormalTRIG 150-199 mg/dL Borderline highTRIG 200-500 mg/dL High TRIG greater than 500 mg/dL Very highStandard traceable to the Center for Disease Conrtrol and Prevention (CDC) test method. Urea nitrogen [Mass/volume] in Serum or PlasmaOrdered By: Nigel Lawson on 10-18-2023 Urea nitrogen [Mass/Vol] 11 mg/dL 7 [facility] Urine microalbumin/creatinin e mass ratioOrdered By: Nigel Lawson on 10-18-2023 Albumin/Creatinine DL <= 20 mg/L (U) [Mass ratio] TNP [facility] Comment on above: Test not performed Vitamin D+Metabolites [Mass/ volume] in Serum or PlasmaOrdered By: Nigel Lawson on 10-18-2023 Vitamin D+Metabolites [Mass/Vol] 17.6 ng/mL 30-100 [facility] Comment on above: VITAMIN D STATUS 25( [...] aPTT Coag (PPP) [Time] 29.8 s 25.1-36.5 [facility] Comment on above: A hematocrit value g reater than 55% may lead to inaccurate results in coagulation testing. Patients having hematocrit values >55% require a special collection tube for coagulation studies. Please contact the laboratory at [phone] for redraw instructions. Alanine aminotransferase [En zymatic activity/volume] in Serum or PlasmaOrdered By: Stephane Alonso on 08-07-2023 ALT [Catalytic activity/Vol] 17 U/L 7-52 [facility] Albumin [Mass/volume] in Ser um or Plasma by Bromocresol green (BCG) dye binding methoOrdered By: Stephane Alonso on 08-07-2023 Albumin BCG dye [Mass/Vol] 4.2 g/dL 3.5-5.7 [facility] Alkaline phosphatase [Enzyma tic activity/volume] in Serum or PlasmaOrdered By: Stephane Alonso on 08-07-2023 ALP [Catalytic activity/Vol] 60 U/L 34-104 [facility] Aspartate aminotransferase [ Enzymatic activity/volume] in Serum or PlasmaOrdered By: Stephane Alonso on 08-07-2023 AST [Catalytic activity/Vol] 14 U/L 13-39 [facility] Basophils Auto (Bld) [#/Vol] Ordered By: Stephane Alonso on 08-07-2023 Basophils (Bld) [#/Vol] 0.1 10*3/uL 0.0-0.2 [facility] Basophils/100 WBC Auto (Bld) Ordered By: Stephane Alonso on 08-07-2023 Basophils/100 WBC (Bld) 0.7 % . [facility] Beta hydroxybutyrate [Moles/ volume] in Serum or PlasmaOrdered By: Stephane Alonso on 08-07-2023 Beta hydroxybutyrate [Moles/Vol] 0.20 mmol/L 0.02-0.27 [facility] Bilirubin.total [Mass/volume ] in Serum or PlasmaOrdered By: Stephane Alonso on 08-07-2023 Bilirubin [Mass/Vol] 0.2 mg/dL 0.3-1.0 [facility] Calcium [Mass/volume] in Ser um or PlasmaOrdered By: Stephane Alonso on 08-07-2023 Calcium [Mass/Vol] 9.0 mg/dL 8.6-10.3 [facility] Carbon dioxide, total [Moles /volume] in Serum or PlasmaOrdered By: Stephane Alonso on 08-07-2023 CO2 [Moles/Vol] 20.0 mmol/L 21.0-31.0 [facility] Chloride [Moles/volume] in S zaria or PlasmaOrdered By: Stephane Alonso on 08-07-2023 Chloride [Moles/Vol] 104 mmol/L 98-107 [facility] Creatinine [Mass/volume] in Serum or PlasmaOrdered By: Stephane Alonso on 08-07-2023 Creatinine [Mass/Vol] 0.56 mg/dL 0.60-1.20 [facility] Eosinophils Auto (Bld) [#/Vo l]Ordered By: Stephane Alonso on 08-07-2023 Eosinophils (Bld) [#/Vol] 0.1 10*3/uL 0.0-0.45 [facility] Eosinophils/100 WBC Auto (Bl d)Ordered By: Stephane Alonso on 08-07-2023 Eosinophils/100 WBC (Bld) 0.6 % . [facility] Erythrocyte distribution wid th Auto (RBC) [Ratio]Ordered By: Stephane Alonso on 08-07-2023 Erythrocyte distribution width (RBC) [Ratio] 12.9 % 11.9-15.3 [facility] Globulin Calc (S) [Mass/Vol] Ordered By: Stephane Alonso on 08-07-2023 Globulin (S) [Mass/Vol] 2.9 g/dL [facility] Glucose Glucometer (BldC) [M ass/Vol]Ordered By: NURIA RESENDEZ on 08-07-2023 Glucose [Mass/Vol] 365 mg/dL [facility] Comment on above: Random Glucose Refer ence Range is dependent on time and content of last meal. Glucose of more than 200 mg/dL in a nonstressed, ambulatory subject supports the diagnosis of Diabetes Mellitus. Glucose [Mass/volume] in Ser um or PlasmaOrdered By: Stephane Alonso on 08-07-2023 Glucose [Mass/Vol] 331 mg/dL 70-100 [facility] Comment on above: ADA recommended refe rence rangeRandom Glucose Reference Range is dependent on time and content of last meal. Glucose of more than 200 mg/dL in a nonstressed, ambulatory subject supports the diagnosis of Diabetes Mellitus. Hematocrit Auto (Bld) [Volum e fraction]Ordered By: Stephane Alonso on 08-07-2023 Hematocrit (Bld) [Volume fraction] 42.3 % 34.0-46.4 [facility] Hemoglobin [Mass/volume] in BloodOrdered By: Stephane Alonso on 08-07-2023 Hemoglobin (Bld) [Mass/Vol] 14.7 g/dL 11.8-15.4 [facility] INR in Platelet poor plasma by Coagulation assayOrdered By: Stephane Alonso on 08-07-2023 INR Coag (PPP) [Relative time] 1.0 {INR} [facility] Comment on above: INR Therapeutic Rang e [...] on 08-07-2023 CO2 [Moles/Vol] 21.4 mmol/L 24.0-29.0 [facility] HCO3 (Bld) [Moles/Vol] 20.4 mmol/L 23.0-29.0 [facility] Leukocytes [#/volume] correc jacy for nucleated erythrocytes in Blood by Automated counOrdered By: Stephane Alonso on 08-07-2023 WBC corrected for nucl RBC Auto (Bld) [#/Vol] 9.5 10*3/uL 3.8-11.6 [facility] Lymphocytes Auto (Bld) [#/Vo l]Ordered By: Stephane Alonso on 08-07-2023 Lymphocytes (Bld) [#/Vol] 2.2 10*3/uL 1.00-4.8 [facility] Lymphocytes/100 WBC Auto (Bl d)Ordered By: Stephane Alonso on 08-07-2023 Lymphocytes/100 WBC (Bld) 23.3 % . [facility] MCH Auto (RBC) [Entitic mass ]Ordered By: Stephane Alonso on 08-07-2023 MCH (RBC) [Entitic mass] 30.3 pg 24.7-34.3 [facility] MCHC Auto (RBC) [Mass/Vol]Or dered By: Stephane Alonso on 08-07-2023 MCHC (RBC) [Mass/Vol] 34.8 g/dL 32.0-35.0 [facility] MCV Auto (RBC) [Entitic vol] Ordered By: Stephane Alonso on 08-07-2023 MCV (RBC) [Entitic vol] 87.0 fL 80-100 [facility] Monocyte distribution width [Entitic volume] in Blood by AutomatedOrdered By: Stephane Alonso on 08-07-2023 Monocyte distribution width Auto (Bld) [Entitic vol] 17.73 % 0.00-20.00 [facility] Monocytes Auto (Bld) [#/Vol] Ordered By: Stephane Alonso on 08-07-2023 Monocytes (Bld) [#/Vol] 0.5 10*3/uL 0.0-0.8 [facility] Monocytes/100 WBC Auto (Bld) Ordered By: Stephane Alonso on 08-07-2023 Monocytes/100 WBC (Bld) 5.4 % . [facility] Neutrophils Auto (Bld) [#/Vo l]Ordered By: Stephane Alonso on 08-07-2023 Neutrophils (Bld) [#/Vol] 6.6 10*3/uL 1.8-7.7 [facility] Neutrophils/100 WBC Auto (Bl d)Ordered By: Stephane Alonso on 08-07-2023 Neutrophils/100 WBC (Bld) 70.0 % . [facility] No Panel InformationOrdered By: Stephane Alonso on 08-07-2023 Blood Gas Critical Value See comment [facility] Comment on above: Critical Value ramey d on: 08/07/2023 at 09:56 Blood Gas Sample Site Venous Fir [facility] FiO2 21 % [facility] Venous Blood Base Excess -3.2 mmol/L -3.0-3.0 [facility] Venous Blood Oxygen Content 9.0 mmol/L 6.6-9.7 [facility] Venous Blood Oxygen Saturation 96.4 % 73.0-76.0 [facility] Venous Blood Partial Pressure CO2 32.7 mm[Hg] 38.0-50.0 [facility] Venous Blood Partial Pressure O2 81.9 mm[Hg] 35.0-45.0 [facility] Venous Blood pH 7.41 7.32-7.43 [facility] Estimated GFR (CKD-EPI) > 60.0 mL/Min [facility] Creatinine Clearance (Chem 152.76 [facility] Nucleated erythrocytes [Pres ence] in Blood by Automated countOrdered By: Stephane Alonso on 08-07-2023 Nucleated RBC Auto Ql (Bld) 0.1 /100{WBC} 0-0.5 [facility] Platelet mean volume Auto (B ld) [Entitic vol]Ordered By: Stephane Alonso on 08-07-2023 Platelet mean volume (Bld) [Entitic vol] 7.9 fL 6.3-10.7 [facility] Platelets Auto (Bld) [#/Vol] Ordered By: Stephane Alonso on 08-07-2023 Platelets (Bld) [#/Vol] 349 10*3/uL 150-450 [facility] Potassium [Moles/volume] in Serum or PlasmaOrdered By: Stephane Alonso on 08-07-2023 Potassium [Moles/Vol] 4.2 mmol/L 3.5-5.1 [facility] Protein [Mass/volume] in Ser um or PlasmaOrdered By: Stephane Alonso on 08-07-2023 Protein [Mass/Vol] 7.1 g/dL 6.4-8.9 [facility] Prothrombin time (PT)Ordered By: Stephane Alonso on 08-07-2023 PT Coag (PPP) [Time] 11.1 s 9.0-12.9 [facility] Comment on above: A hematocrit value g reater than 55% may lead to inaccurate results in coagulation testing. Patients having hematocrit values >55% require a special collection tube for coagulation studies. Please contact the laboratory at [phone] for redraw instructions. RBC Auto (Bld) [#/Vol]Ordere d By: Stephane Alonso on 08-07-2023 RBC (Bld) [#/Vol] 4.87 10*6/uL 3.60-5.00 [facility] Serum or plasma albumin/glob ulin mass ratioOrdered By: Stephane Alonso on 08-07-2023 Albumin/Globulin [Mass ratio] 1.4 {ratio} [facility] Serum or plasma anion gap de terminationOrdered By: Stephane Alonso on 08-07-2023 Anion gap [Moles/Vol] 13.2 mmol/L 6.0-15.0 [facility] Sodium [Moles/volume] in Ser um or PlasmaOrdered By: Stephane Alonso on 08-07-2023 Sodium [Moles/Vol] 133 mmol/L 136-145 [facility] Urea nitrogen [Mass/volume] in Serum or PlasmaOrdered By: Stephane Alonso on 08-07-2023 Urea nitrogen [Mass/Vol] 11 mg/dL 7-25 [facility] WBC Auto (Bld) [#/Vol]Ordere d By: Stephane Alonso on 08-07-2023 WBC (Bld) [#/Vol] 9.5 10*3/uL 3.8-11.6 [facility] Laboratory - Cytologyon 02-0 Drug Abuse Social Worker Cyto stain Nom (Cvx/Vag) [ID] [facility] Comment on above: Reference Range: ZL, CT(ASCP) CT screening location: [employer] [address], [place] [address]. Cytology study comment Cyto stain Chris (Cvx/Vag) [Interp] [facility] Comment on above: This Pap test has be en evaluated with computer assisted technology. Microscopic observation Cyto stain Nom (Cvx) [facility] Comment on above: Cytology Results: Ne gative for intraepithelial lesion or malignancy. Specimen source Cyto stain Nom (Cvx/Vag) [facility] Comment on above: None given Statement of adequacy Cyto stain (Cvx/Vag) [Interp] [facility] Comment on above: Satisfactory for travis luation. Endocervical/transformation zone component present. Laboratory - Microbiology an d Antimicrobial susceptibilityon 07-10-2023 HPV E6+E7 mRNA HARJINDER+probe Ql (Cvx) Not detected Not Detected [facility] Comment on above: Methodology: Transcr iption-Mediated Amplification This assay detects E6/E7 viral messenger RNA (mRNA) from 14 high-risk HPV types (16,18,31,33,35,39,45,51,52,56,58,59,66,68). Cervical sources are required for HPV testing. If a vaginal source from a patient who has had a total hysterectomy with removal of cervix was submitted, please contact the testing laboratory for alternative testing options. For additional information, please refer to http://education.Intrapace/faq/GIN425z6 (This link if provided for information/ educational purposes only.) No Panel Informationon 07-10 (ALWAYS MESSAGE) [facility] Comment on above: EXPLANATORY NOTE: The [...] historic and current clinical information. Clinical information [facility] Comment on above: None given Date of previous biopsy [facility] Comment on above: None given Date of previous PAP smear [facility] Comment on above: None given Last menstrual period start date [facility] Comment on above: None given Performing Organizat ion Information Site ID: [id number] Name: [employer] [facility] Address: Bertrand Fox , [address] [place] [id number] Director: Aj Avila MD Formerly [facility] Alanine aminotransferase [En zymatic activity/volume] in Serum or PlasmaOrdered By: Molly Elaine on 06-19-2023 ALT [Catalytic activity/Vol] 27 U/L 7-52 [facility] Albumin [Mass/volume] in Ser um or Plasma by Bromocresol green (BCG) dye binding methoOrdered By: Molly Elaine on 06-19-2023 Albumin BCG dye [Mass/Vol] 4.1 g/dL 3.5-5.7 [facility] Alkaline phosphatase [Enzyma tic activity/volume] in Serum or PlasmaOrdered By: Molly Elaine on 06-19-2023 ALP [Catalytic activity/Vol] 72 U/L 34-104 [facility] Aspartate aminotransferase [ Enzymatic activity/volume] in Serum or PlasmaOrdered By: Molly Elaine on 06-19-2023 AST [Catalytic activity/Vol] 18 U/L 13-39 [facility] Bilirubin.total [Mass/volume ] in Serum or PlasmaOrdered By: Molly Elaine on 06-19-2023 Bilirubin [Mass/Vol] 0.4 mg/dL 0.3-1.0 [facility] Calcium [Mass/volume] in Ser um or PlasmaOrdered By: Molly Elaine on 06-19-2023 Calcium [Mass/Vol] 8.8 mg/dL 8.6-10.3 [facility] Carbon dioxide, total [Moles /volume] in Serum or PlasmaOrdered By: Molly Elaine on 06-19-2023 CO2 [Moles/Vol] 25.9 mmol/L 21.0-31.0 [facility] Chloride [Moles/volume] in S zaria or PlasmaOrdered By: Molly Elaine on 06-19-2023 Chloride [Moles/Vol] 102 mmol/L 98-107 [facility] Cholesterol [Mass/volume] in Serum or PlasmaOrdered By: Molly Elaine on 06-19-2023 Cholesterol [Mass/Vol] 128 mg/dL 140-200 [facility] Comment on above: Chol less than 200 m g/dl low riskChol 201-239 mg/dl borderline riskChol 240 mg/dl and greater high risk Cholesterol in LDL Calc [Mas s/Vol]Ordered By: Molly Elaine on 06-19-2023 Cholesterol in LDL [Mass/Vol] 58 mg/dL 0-100 [facility] Comment on above: LDL ATP III CLASSIFI CATIONLDL less than 100 mg/dL OptimalLDL 100-129 mg/dL Near or above optimalLDL 130-159 mg/dL Borderline highLDL 160-189 mg/dL HighLDL greater than 189 mg/dL Very high Cholesterol in VLDL Calc [Ma ss/Vol]Ordered By: Molly Elaine on 06-19-2023 Cholesterol in VLDL [Mass/Vol] 35 mg/dL [facility] Creatinine [Mass/volume] in Serum or PlasmaOrdered By: Molly Elaine on 06-19-2023 Creatinine [Mass/Vol] 0.53 mg/dL 0.60-1.20 [facility] Erythrocyte distribution wid th Auto (RBC) [Ratio]Ordered By: Molly Elaine on 06-19-2023 Erythrocyte distribution width (RBC) [Ratio] 12.9 % 11.9-15.3 [facility] Globulin Calc (S) [Mass/Vol] Ordered By: Molly Elaine on 06-19-2023 Globulin (S) [Mass/Vol] 2.3 g/dL [facility] Glucose [Mass/volume] in Ser um or PlasmaOrdered By: Molly Elaine on 06-19-2023 Glucose [Mass/Vol] 275 mg/dL 70-100 [facility] Comment on above: ADA recommended refe rence rangeRandom Glucose Reference Range is dependent on time and content of last meal. Glucose of more than 200 mg/dL in a nonstressed, ambulatory subject supports the diagnosis of Diabetes Mellitus. Hematocrit Auto (Bld) [Volum e fraction]Ordered By: Molly Elaine on 06-19-2023 Hematocrit (Bld) [Volume fraction] 41.8 % 34.0-46.4 [facility] Hemoglobin [Mass/volume] in BloodOrdered By: Molly Elaine on 06-19-2023 Hemoglobin (Bld) [Mass/Vol] 14.6 g/dL 11.8-15.4 [facility] Leukocytes [#/volume] correc jacy for nucleated erythrocytes in Blood by Automated counOrdered By: Molly Elaine on 06-19-2023 WBC corrected for nucl RBC Auto (Bld) [#/Vol] 8.1 10*3/uL 3.8-11.6 [facility] MCH Auto (RBC) [Entitic mass ]Ordered By: Molly Elaine on 06-19-2023 MCH (RBC) [Entitic mass] 30.9 pg 24.7-34.3 [facility] MCHC Auto (RBC) [Mass/Vol]Or dered By: Molly Elaine on 06-19-2023 MCHC (RBC) [Mass/Vol] 34.8 g/dL 32.0-35.0 [facility] MCV Auto (RBC) [Entitic vol] Ordered By: Molly Elaine on 06-19-2023 MCV (RBC) [Entitic vol] 88.6 fL 80-100 [facility] No Panel InformationOrdered By: Molly Elaine on 06-19-2023 Estimated GFR (CKD-EPI) > 60.0 mL/Min [facility] Free Thyroxine (T4) Direct 7.8 ug/dL 4.5-12.0 [facility] Comment on above: Performed at: [address] [id number] Director: Oniel Saldana PhD, Phone: [phone] Pharmacy Creatinine Clearance (Chem N/A [facility] Platelet mean volume Auto (B ld) [Entitic vol]Ordered By: Molly Elaine on 06-19-2023 Platelet mean volume (Bld) [Entitic vol] 8.2 fL 6.3-10.7 [facility] Platelets Auto (Bld) [#/Vol] Ordered By: Molly Elaine on 06-19-2023 Platelets (Bld) [#/Vol] 276 10*3/uL 150-450 [facility] Potassium [Moles/volume] in Serum or PlasmaOrdered By: Molly Elaine on 06-19-2023 Potassium [Moles/Vol] 4.3 mmol/L 3.5-5.1 [facility] Protein [Mass/volume] in Ser um or PlasmaOrdered By: Molly Elaine on 06-19-2023 Protein [Mass/Vol] 6.4 g/dL 6.4-8.9 [facility] RBC Auto (Bld) [#/Vol]Ordere d By: Molly Elaine on 06-19-2023 RBC (Bld) [#/Vol] 4.72 10*6/uL 3.60-5.00 [facility] Serum or plasma albumin/glob ulin mass ratioOrdered By: Molly Elaine on 06-19-2023 Albumin/Globulin [Mass ratio] 1.8 {ratio} [facility] Serum or plasma anion gap de terminationOrdered By: Molly Elaine on 06-19-2023 Anion gap [Moles/Vol] 12.4 mmol/L 6.0-15.0 [facility] Serum or plasma high density lipoprotein (HDL) cholesterol measurementOrdered By: Molly Elaine on 06-19-2023 Cholesterol in HDL [Mass/Vol] 35 mg/dL 23-92 [facility] Comment on above: HDL CHOL ATP-III CLA SSIFICATION Cardiovascular RiskHDL > or equal to 60 mg/dL LOWHDL < 40 mg/dL HIGH Serum or plasma total choles terol/high density lipoprotein (HDL) cholesterol mass ratOrdered By: Molly Elaine on 06-19-2023 Cholesterol.total/Chol esterol in HDL [Mass ratio] 3.7 {ratio} <5.0 [facility] Sodium [Moles/volume] in Ser um or PlasmaOrdered By: Molly Elaine on 06-19-2023 Sodium [Moles/Vol] 136 mmol/L 136-145 [facility] Thyrotropin [Units/volume] i n Serum or PlasmaOrdered By: Molly Elaine on 01-17-2024 TSH Qn 5.40 m[IU]/L 0.45-5.33 [facility] Triglyceride [Mass/volume] i n Serum or PlasmaOrdered By: Molly Elaine on 06-19-2023 Triglyceride [Mass/Vol] 177 mg/dL 0-149 [facility] Comment on above: TRIG ATP III CLASSIF ICATIONTRIG less than 150 mg/dL NormalTRIG 150-199 mg/dL Borderline highTRIG 200-500 mg/dL High TRIG greater than 500 mg/dL Very highStandard traceable to the Center for Disease Conrtrol and Prevention (CDC) test method. Triiodothyronine (T3) [Mass/ volume] in Serum or PlasmaOrdered By: Molly Elaine on 06-19-2023 T3 [Mass/Vol] 1.34 ng/mL 0.87-1.78 [facility] Urea nitrogen [Mass/volume] in Serum or PlasmaOrdered By: Molly Elaine on 06-19-2023 Urea nitrogen [Mass/Vol] 11 mg/dL 7-25 [facility] A1C HEMOGLOBINon 06-05-2023 HbA1c (Bld) [Mass fraction] 10.6 % [employer] Other HbA1c (Bld) [Mass fraction]o n 06-05-2023 A1C HEMOGLOBIN [facility] [employer] Other A1C HEMOGLOBINon 10-02-2022 HbA1c (Bld) [Mass fraction] 7.0 % [employer] Other Alanine aminotransferase [En zymatic activity/volume] in Serum or PlasmaOrdered By: Molly Elaine on 10-02-2022 ALT [Catalytic activity/Vol] 69 U/L 7-52 [facility] Albumin [Mass/volume] in Ser um or Plasma by Bromocresol green (BCG) dye binding methoOrdered By: Molly Elaine on 10-02-2022 Albumin BCG dye [Mass/Vol] 3.9 g/dL 3.5-5.7 [facility] Alkaline phosphatase [Enzyma tic activity/volume] in Serum or PlasmaOrdered By: Molly Elaine on 10-02-2022 ALP [Catalytic activity/Vol] 75 U/L 34-104 [facility] Aspartate aminotransferase [ Enzymatic activity/volume] in Serum or PlasmaOrdered By: Molly Elaine on 10-02-2022 AST [Catalytic activity/Vol] 30 U/L 13-39 [facility] Bilirubin.total [Mass/volume ] in Serum or PlasmaOrdered By: Molly Elaine on 10-02-2022 Bilirubin [Mass/Vol] 0.3 mg/dL 0.3-1.0 [facility] Calcium [Mass/volume] in Ser um or PlasmaOrdered By: Molly Elaine on 10-02-2022 Calcium [Mass/Vol] 8.6 mg/dL 8.6-10.3 [facility] Carbon dioxide, total [Moles /volume] in Serum or PlasmaOrdered By: Molly Elaine on 10-02-2022 CO2 [Moles/Vol] 28.2 mmol/L 21.0-31.0 [facility] Chloride [Moles/volume] in S zaria or PlasmaOrdered By: Molly Elaine on 10-02-2022 Chloride [Moles/Vol] 100 mmol/L 98-107 [facility] Cholesterol [Mass/volume] in Serum or PlasmaOrdered By: Molly Elaine on 10-02-2022 Cholesterol [Mass/Vol] 138 mg/dL 140-200 [facility] Comment on above: Chol less than 200 m g/dl low riskChol 201-239 mg/dl borderline riskChol 240 mg/dl and greater high risk Cholesterol in LDL Calc [Mas s/Vol]Ordered By: Molly Elaine on 10-02-2022 Cholesterol in LDL [Mass/Vol] 56 mg/dL 0-100 [facility] Comment on above: LDL ATP III CLASSIFI CATIONLDL less than 100 mg/dL OptimalLDL 100-129 mg/dL Near or above optimalLDL 130-159 mg/dL Borderline highLDL 160-189 mg/dL HighLDL greater than 189 mg/dL Very high Cholesterol in VLDL Calc [Ma ss/Vol]Ordered By: Molly Elaine on 10-02-2022 Cholesterol in VLDL [Mass/Vol] 38 mg/dL [facility] Creatinine [Mass/volume] in Serum or PlasmaOrdered By: Molly Elaine on 10-02-2022 Creatinine [Mass/Vol] 0.66 mg/dL 0.60-1.20 [facility] Erythrocyte distribution wid th Auto (RBC) [Ratio]Ordered By: Molly Elaine on 10-02-2022 Erythrocyte distribution width (RBC) [Ratio] 13.1 % 11.9-15.3 [facility] Globulin Calc (S) [Mass/Vol] Ordered By: Molly Elaine on 10-02-2022 Globulin (S) [Mass/Vol] 2.6 g/dL [facility] Glucose [Mass/volume] in Ser um or PlasmaOrdered By: Molly Elaine on 10-02-2022 Glucose [Mass/Vol] 288 mg/dL 70-100 [facility] Comment on above: ADA recommended refe rence rangeRandom Glucose Reference Range is dependent on time and content of last meal. Glucose of more than 200 mg/dL in a nonstressed, ambulatory subject supports the diagnosis of Diabetes Mellitus. HbA1c (Bld) [Mass fraction]o n 10-02-2022 A1C HEMOGLOBIN [employer] Other Hematocrit Auto (Bld) [Volum e fraction]Ordered By: Molly Elaine on 10-02-2022 Hematocrit (Bld) [Volume fraction] 40.2 % 34.0-46.4 [facility] Hemoglobin [Mass/volume] in BloodOrdered By: Molly Elaine on 10-02-2022 Hemoglobin (Bld) [Mass/Vol] 13.7 g/dL 11.8-15.4 [facility] Leukocytes [#/volume] correc jacy for nucleated erythrocytes in Blood by Automated counOrdered By: Molly Elaine on 10-02-2022 WBC corrected for nucl RBC Auto (Bld) [#/Vol] 8.2 10*3/uL 3.8-11.6 [facility] MCH Auto (RBC) [Entitic mass ]Ordered By: Molly Elaine on 10-02-2022 MCH (RBC) [Entitic mass] 31.2 pg 24.7-34.3 [facility] MCHC Auto (RBC) [Mass/Vol]Or dered By: Molly Elaine on 10-02-2022 MCHC (RBC) [Mass/Vol] 34.0 g/dL 32.0-35.0 [facility] MCV Auto (RBC) [Entitic vol] Ordered By: Molly Elaine on 10-02-2022 MCV (RBC) [Entitic vol] 91.8 fL 80-100 [facility] No Panel InformationOrdered By: Molly Elaine on 10-02-2022 Estimated GFR (CKD-EPI) > 60.0 mL/Min [facility] Creatinine Clearance (Chem N/A [facility] Platelet mean volume Auto (B ld) [Entitic vol]Ordered By: Molly Elaine on 10-02-2022 Platelet mean volume (Bld) [Entitic vol] 7.6 fL 6.3-10.7 [facility] Platelets Auto (Bld) [#/Vol] Ordered By: Molly Elaine on 10-02-2022 Platelets (Bld) [#/Vol] 279 10*3/uL 150-450 [facility] Potassium [Moles/volume] in Serum or PlasmaOrdered By: Molly Elaine on 10-02-2022 Potassium [Moles/Vol] 4.3 mmol/L 3.5-5.1 [facility] Protein [Mass/volume] in Ser um or PlasmaOrdered By: Molly Elaine on 10-02-2022 Protein [Mass/Vol] 6.5 g/dL 6.4-8.9 [facility] RBC Auto (Bld) [#/Vol]Ordere d By: Molly Elaine on 10-02-2022 RBC (Bld) [#/Vol] 4.38 10*6/uL 3.60-5.00 [facility] Serum or plasma albumin/glob ulin mass ratioOrdered By: Molly Elaine on 10-02-2022 Albumin/Globulin [Mass ratio] 1.5 {ratio} [facility] Serum or plasma anion gap de terminationOrdered By: Molly Elaine on 10-02-2022 Anion gap [Moles/Vol] 11.1 mmol/L 6.0-15.0 [facility] Serum or plasma high density lipoprotein (HDL) cholesterol measurementOrdered By: Molly Elaine on 10-02-2022 Cholesterol in HDL [Mass/Vol] 43 mg/dL 35-85 [facility] Comment on above: HDL CHOL ATP-III CLA SSIFICATION Cardiovascular RiskHDL > or equal to 60 mg/dL LOWHDL < 40 mg/dL HIGH Serum or plasma total choles terol/high density lipoprotein (HDL) cholesterol mass ratOrdered By: Molly Elaine on 10-02-2022 Cholesterol.total/Chol esterol in HDL [Mass ratio] 3.2 {ratio} <5.0 [facility] Sodium [Moles/volume] in Ser um or PlasmaOrdered By: Molly Elaine on 10-02-2022 Sodium [Moles/Vol] 135 mmol/L 136-145 [facility] Triglyceride [Mass/volume] i n Serum or PlasmaOrdered By: Molly Elaine on 10-02-2022 Triglyceride [Mass/Vol] 193 mg/dL 0-149 [facility] Comment on above: TRIG ATP III CLASSIF ICATIONTRIG less than 150 mg/dL NormalTRIG 150-199 mg/dL Borderline highTRIG 200-500 mg/dL High TRIG greater than 500 mg/dL Very highStandard traceable to the Center for Disease Conrtrol and Prevention (CDC) test method. Urea nitrogen [Mass/volume] in Serum or PlasmaOrdered By: Molly Elaine on 10-02-2022 Urea nitrogen [Mass/Vol] 7 mg/dL 7-25 [facility] Activated partial thrombopla stin time (aPTT) in platelet poor plasma by coagulation aOrdered By: Earnestine Alonso on 04-04-2022 aPTT Coag (PPP) [Time] 28.6 s 25.1-36.5 [facility] Basophils Auto (Bld) [#/Vol] Ordered By: Earnestine Alonso on 04-04-2022 Basophils (Bld) [#/Vol] 0.1 10*3/uL 0.0-0.2 [facility] Basophils/100 WBC Auto (Bld) Ordered By: Earnestine Alonso on 04-04-2022 Basophils/100 WBC (Bld) 1.4 % . [facility] Creatine kinase [Enzymatic a ctivity/volume] in Serum or PlasmaOrdered By: Earnestine Alonso on 04-04-2022 CK [Catalytic activity/Vol] 45 U/L 22-269 [facility] Creatinine and Glomerular fi ltration rate.predicted panel (S/P/Bld)Ordered By: Earnestine Alonso on 04-04-2022 Creatinine [Mass/Vol] 0.54 mg/dL 0.44-1.03 [facility] Eosinophils Auto (Bld) [#/Vo l]Ordered By: Earnestine Alonso on 04-04-2022 Eosinophils (Bld) [#/Vol] 0.2 10*3/uL 0.0-0.45 [facility] Eosinophils/100 WBC Auto (Bl d)Ordered By: Earnestine Alonso on 04-04-2022 Eosinophils/100 WBC (Bld) 1.6 % . [facility] Erythrocyte distribution wid th Auto (RBC) [Ratio]Ordered By: Earnestine Alonso on 04-04-2022 Erythrocyte distribution width (RBC) [Ratio] 13.6 % 11.9-15.3 [facility] Estimated glomerular filtrat ion rate (GFR) non- AmericanOrdered By: Earnestine Alonso on 04-04-2022 GFR/1.73 sq M.predicted among non-blacks MDRD (S/P/Bld) [Vol rate/Area] > 60 mL/Min [facility] Hematocrit Auto (Bld) [Volum e fraction]Ordered By: Earnestine Alonso on 04-04-2022 Hematocrit (Bld) [Volume fraction] 40.6 % 34.0-46.4 [facility] Hemoglobin [Mass/volume] in BloodOrdered By: Earnestine Alonso on 04-04-2022 Hemoglobin (Bld) [Mass/Vol] 14.0 g/dL 11.8-15.4 [facility] Laboratory - Chemistry and C hemistry - challengeOrdered By: Earnestine Alonso on 04-04-2022 Natriuretic peptide B (Bld) [Mass/Vol] 109.0 pg/mL 5-100 [facility] - CoagulationOrde red By: Earnestine Alonso on 04-04-2022 PT Coag (PPP) [Time] 12.0 s 9.0-12.9 [facility] - Hematology and Cell countsOrdered By: Earnestine Alonso on 04-04-2022 Nucleated RBC/100 WBC (Bld) [Ratio] 0.0 % 0-0.5 [facility] Leukocytes [#/volume] in Blo od by Automated countOrdered By: Earnestine Alonso on 04-04-2022 WBC (Bld) [#/Vol] 9.8 10*3/uL 4.5-11.0 [facility] Lymphocytes Auto (Bld) [#/Vo l]Ordered By: Earnestine Alonso on 04-04-2022 Lymphocytes (Bld) [#/Vol] 2.2 10*3/uL 1.00-4.8 [facility] Lymphocytes/100 WBC Auto (Bl d)Ordered By: Earnestine Alonso on 04-04-2022 Lymphocytes/100 WBC (Bld) 22.5 % . [facility] MCH Auto (RBC) [Entitic mass ]Ordered By: Earnestine Alonso on 04-04-2022 MCH (RBC) [Entitic mass] 30.7 pg 24.7-34.3 [facility] MCHC Auto (RBC) [Mass/Vol]Or dered By: Earnestine Alonso on 04-04-2022 MCHC (RBC) [Mass/Vol] 34.3 g/dL 32.0-35.0 [facility] MCV Auto (RBC) [Entitic vol] Ordered By: Earnestine Alonso on 04-04-2022 MCV (RBC) [Entitic vol] 89.5 fL 80-100 [facility] Monocytes Auto (Bld) [#/Vol] Ordered By: Earnestine Alonso on 04-04-2022 Monocytes (Bld) [#/Vol] 0.8 10*3/uL 0.0-0.8 [facility] Monocytes/100 WBC Auto (Bld) Ordered By: Earnestine Alonso on 04-04-2022 Monocytes/100 WBC (Bld) 7.9 % . [facility] Neutrophils Auto (Bld) [#/Vo l]Ordered By: Earnestine Alonso on 04-04-2022 Neutrophils (Bld) [#/Vol] 6.5 10*3/uL 1.8-7.7 [facility] Neutrophils/100 WBC Auto (Bl d)Ordered By: Earnestine Alonso on 04-04-2022 Neutrophils/100 WBC (Bld) 66.6 % . [facility] No Panel InformationOrdered By: Earnestine Alonso on 04-04-2022 Estimated GFR () > 60 mL/Min [facility] Comment on above: GFR estimated refere nce range: According to KDOQI guidelines, <60 ml/min/1.73m2 is sufficient to diagnose a patient with chronic kidney disease. Pharmacy Creatinine Clearance (Chem 160.90 [facility] Platelet mean volume Auto (B ld) [Entitic vol]Ordered By: Earnestine Alonso on 04-04-2022 Platelet mean volume (Bld) [Entitic vol] 7.7 fL 6.3-10.7 [facility] Platelet poor plasma interna tional normalized ratio (INR) by coagulation assay (relatOrdered By: Earnestine Alonso on 04-04-2022 INR Coag (PPP) [Relative time] 1.1 {INR} [facility] Comment on above: INR Therapeutic Rang e [...] 04-04-2022 Platelets (Bld) [#/Vol] 319 10*3/uL 150-450 [facility] RBC Auto (Bld) [#/Vol]Ordere d By: Earnestine Alonso on 04-04-2022 RBC (Bld) [#/Vol] 4.54 10*6/uL 3.60-5.00 [facility] Serum or plasma anion gap de terminationOrdered By: Earnestine Alonso on 04-04-2022 Anion gap [Moles/Vol] 11.5 mmol/L 6.0-15.0 [facility] Serum or plasma calcium anuradha urement (mass/volume)Ordered By: Earnestine Alonso on 04-04-2022 Calcium [Mass/Vol] 8.9 mg/dL 8.2-10.2 [facility] Serum or plasma chloride vinicio surement (moles/volume)Ordered By: Earnestine Alonso on 04-04-2022 Chloride [Moles/Vol] 106 mmol/L 95-114 [facility] Serum or plasma creatine kin ase MB (CKMB)/total creatine kinase (CK) ratio by calculaOrdered By: Earnestine Alonso on 04-04-2022 CK.MB Calc [Catalytic fraction] 2.2 % 0.00-2.50 [facility] Serum or plasma creatine kin ase MB measurement (mass/volume)Ordered By: Earnestine Alonso on 04-04-2022 CK.MB [Mass/Vol] 1.0 ng/mL 0.6-6.3 [facility] Serum or plasma glucose anuradha urement (mass/volume)Ordered By: Earnestine Alonso on 04-04-2022 Glucose [Mass/Vol] 128 mg/dL 70-100 [facility] Comment on above: ADA recommended refe rence rangeRandom Glucose Reference Range is dependent on time and content of last meal. Glucose of more than 200 mg/dL in a nonstressed, ambulatory subject supports the diagnosis of Diabetes Mellitus. Serum or plasma potassium me asurement (moles/volume)Ordered By: Earnestine Alonso on 04-04-2022 Potassium [Moles/Vol] 4.0 mmol/L 3.5-5.1 [facility] Serum or plasma sodium measu rement (moles/volume)Ordered By: Earnestine Alonso on 04-04-2022 Sodium [Moles/Vol] 136 mmol/L 136-146 [facility] Serum or plasma total carbon dioxide measurement (moles/volume)Ordered By: Earnestine Alonso on 04-04-2022 CO2 [Moles/Vol] 22.5 mmol/L 22.0-30.0 [facility] Serum or plasma urea nitroge n measurement (mass/volume)Ordered By: Earnestine Alonso on 04-04-2022 Urea nitrogen [Mass/Vol] 6 mg/dL 02-23 [facility] Troponin I.cardiac [Mass/vol ume] in Serum or Plasma by High sensitivity methodOrdered By: Earnestine Alonso on 04-04-2022 Troponin I.cardiac High sensitivity method [Mass/Vol] < 3 pg/mL 0-15 [facility] Office Visit (Cardiology)on 01-31-2022 Follow-up visit Diagnoses/Problems Assessed NSTEMI, initial episode of care (410.71) (I21.4) Diabetes (250.00) (E11.9) 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) Current every day smoker (305.1) (F17.200) 1 PPD Morbid obesity with BMI of 40.0-44.9, adult (278.01,V85.41) (E66.01,Z68.41) Orders Morbid obesity with BMI of 40.0-44.9, adult Healthy Weight Tips; Status:Complete - Retrospective Authorization; Done: [id number] Some eating tips that can help you lose weight.; Status:Complete - Retrospective Authorization; Done: [id number] NSTEMI, initial episode of care Cardiac Rehab Referral Evaluation and Treatment Evaluate AND Treat Status: Hold For - Scheduling,Retrospective Authorization Requested for: [id number] Agreement : I agree to have my [...] we can help. You may also call 6-757-RWQS-NOW for free resources and assistance.; Status:Complete - Retrospective Authorization; Done: [id number] Tobacco Use Screening; Status:Complete; Done: [id number] Patient Instructions Please bring all medicines, vitamins, [...] Complaint NATIVIDAD BONNER is being seen for [facility] D/C 01/22 Cath. 36-year-old female who returns [...] as potential etiologies for her non-ST elevation ND event including syndrome X. Recommendations, continued current [...] negative for complaint. Vitals Vital Signs Recorded: 31Jan2022 10:50AM Heart Ra (more content not included)... Normal [employer] Tobacco Screening.on 022 Tobacco use status CPHS a) Yes [facility] [facility] 250 DO Work Phone: Tobacco Screening. Yes [facility] [facility] 250 DO Work Phone: Activated partial thrombopla stin time (aPTT) in platelet poor plasma by coagulation aOrdered By: Jose Lan on 01-22-2022 aPTT Coag (PPP) [Time] 61.9 s 25.1-36.5 [facility] Creatinine and Glomerular fi ltration rate.predicted panel (S/P/Bld)Ordered By: Jose Lan on 01-22-2022 Creatinine [Mass/Vol] 0.72 mg/dL 0.44-1.03 [facility] Estimated glomerular filtrat ion rate (GFR) non- AmericanOrdered By: Jose Lan on 01-22-2022 GFR/1.73 sq M.predicted among non-blacks MDRD (S/P/Bld) [Vol rate/Area] > 60 mL/Min [facility] No Panel InformationOrdered By: Jose Lan on 01-22-2022 Estimated GFR () > 60 mL/Min [facility] Comment on above: GFR estimated refere nce range: According to KDOQI guidelines, <60 ml/min/1.73m2 is sufficient to diagnose a patient with chronic kidney disease. Pharmacy Creatinine Clearance (Chem 121.72 [facility] Serum or plasma calcium anuradha urement (mass/volume)Ordered By: Jose Lan on 01-22-2022 Calcium [Mass/Vol] 8.8 mg/dL 8.2-10.2 [facility] Serum or plasma chloride vinicio surement (moles/volume)Ordered By: Jose Lan on 01-22-2022 Chloride [Moles/Vol] 103 mmol/L 95-114 [facility] Serum or plasma glucose anuradha urement (mass/volume)Ordered By: Jose Lan on 01-22-2022 Glucose [Mass/Vol] 171 mg/dL 70-100 [facility] Comment on above: ADA recommended refe [...] on 01-22-2022 Potassium [Moles/Vol] 3.7 mmol/L 3.5-5.1 [facility] Serum or plasma sodium measu rement (moles/volume)Ordered By: Jose Lan on 01-22-2022 Sodium [Moles/Vol] 134 mmol/L 136-146 [facility] Serum or plasma total carbon dioxide measurement (moles/volume)Ordered By: Jose Lan on 01-22-2022 CO2 [Moles/Vol] 22.5 mmol/L 22.0-30.0 [facility] Serum or plasma urea nitroge n measurement (mass/volume)Ordered By: Jose Lan on 01-22-2022 Urea nitrogen [Mass/Vol] 10 mg/dL 9-23 [facility] Basophils Auto (Bld) [#/Vol] Ordered By: Jose Lan on 01-21-2022 Basophils (Bld) [#/Vol] 0.1 10*3/uL 0.0-0.2 [facility] Basophils/100 WBC Auto (Bld) Ordered By: Jose Lan on 01-21-2022 Basophils/100 WBC (Bld) 1.1 % . [facility] Blood hemoglobin measurement (mass/volume)Ordered By: Jose Lan on 01-21-2022 Hemoglobin (Bld) [Mass/Vol] 14.3 g/dL 11.8-15.4 [facility] Blood leukocytes automated c ount (number/volume)Ordered By: Jose Lan on 01-21-2022 WBC (Bld) [#/Vol] 10.3 10*3/uL 4.5-11.0 [facility] Eosinophils Auto (Bld) [#/Vo l]Ordered By: Jose Lan on 01-21-2022 Eosinophils (Bld) [#/Vol] 0.3 10*3/uL 0.0-0.45 [facility] Eosinophils/100 WBC Auto (Bl d)Ordered By: Jose Lan on 01-21-2022 Eosinophils/100 WBC (Bld) 2.9 % . [facility] Erythrocyte distribution wid th Auto (RBC) [Ratio]Ordered By: Jose Lan on 01-21-2022 Erythrocyte distribution width (RBC) [Ratio] 12.5 % 11.9-15.3 [facility] Hematocrit Auto (Bld) [Volum e fraction]Ordered By: Jose Lan on 01-21-2022 Hematocrit (Bld) [Volume fraction] 41.3 % 34.0-46.4 [facility] Laboratory - CoagulationOrde red By: Jose Lan on 01-21-2022 PT Coag (PPP) [Time] 12.8 s 9.0-12.9 [facility] - Hematology and Cell countsOrdered By: Jose Lan on 01-21-2022 Nucleated RBC/100 WBC (Bld) [Ratio] 0.0 % 0-0.5 [facility] Lymphocytes Auto (Bld) [#/Vo l]Ordered By: Jose Lan on 01-21-2022 Lymphocytes (Bld) [#/Vol] 3.3 10*3/uL 1.00-4.8 [facility] Lymphocytes/100 WBC Auto (Bl d)Ordered By: Jose Lan on 01-21-2022 Lymphocytes/100 WBC (Bld) 31.6 % . [facility] MCH Auto (RBC) [Entitic mass ]Ordered By: Jose Lan on 01-21-2022 MCH (RBC) [Entitic mass] 30.9 pg 24.7-34.3 [facility] MCHC Auto (RBC) [Mass/Vol]Or dered By: Jose Lan on 01-21-2022 MCHC (RBC) [Mass/Vol] 34.5 g/dL 32.0-35.0 [facility] MCV Auto (RBC) [Entitic vol] Ordered By: Jose Lan on 01-21-2022 MCV (RBC) [Entitic vol] 89.4 fL 80-100 [facility] Monocytes Auto (Bld) [#/Vol] Ordered By: Jose Lan on 01-21-2022 Monocytes (Bld) [#/Vol] 0.5 10*3/uL 0.0-0.8 [facility] Monocytes/100 WBC Auto (Bld) Ordered By: Jose Lan on 01-21-2022 Monocytes/100 WBC (Bld) 4.6 % . [facility] Neutrophils Auto (Bld) [#/Vo l]Ordered By: Jose Lan on 01-21-2022 Neutrophils (Bld) [#/Vol] 6.2 10*3/uL 1.8-7.7 [facility] Neutrophils/100 WBC Auto (Bl d)Ordered By: Jose Lan on 01-21-2022 Neutrophils/100 WBC (Bld) 59.8 % . [facility] Platelet mean volume Auto (B ld) [Entitic vol]Ordered By: Jose Lan on 01-21-2022 Platelet mean volume (Bld) [Entitic vol] 7.7 fL 6.3-10.7 [facility] Platelet poor plasma interna tional normalized ratio (INR) by coagulation assay (relatOrdered By: Jose Lan on 01-21-2022 INR Coag (PPP) [Relative time] 1.1 {INR} [facility] Comment on above: INR Therapeutic Rang e [...] 01-21-2022 Platelets (Bld) [#/Vol] 278 10*3/uL 150-450 [facility] RBC Auto (Bld) [#/Vol]Ordere d By: Jose Lan on 01-21-2022 RBC (Bld) [#/Vol] 4.62 10*6/uL 3.60-5.00 [facility] Amphetamine Screen Ql (U)Ord ered By: Jose Lan on 01-20-2022 Amphetamines Ql (U) Negative Negative [facility] Automated erythrocytes count in urine sediment (number/area)Ordered By: Jose Lan on 01-20-2022 RBC Auto (Urine sed) [#/Area] 3-4 [HPF] 0-4 [facility] Automated leukocytes count i n urine sediment (number/area)Ordered By: Jose Lan on 01-20-2022 WBC Auto (Urine sed) [#/Area] 5-9 [HPF] 0-4 [facility] Barbiturates [Presence] in U rineOrdered By: Jose Lan on 01-20-2022 Barbiturates Ql (U) Negative Negative [facility] Benzodiazepines [Presence] i n UrineOrdered By: Jose Lan on 01-20-2022 Benzodiazepines Ql (U) Positive Negative [facility] Bilirubin Test strip Ql (U)O rdered By: Jose Lan on 01-20-2022 Bilirubin Ql (U) Negative Negative [facility] CARDIAC LUPE 3-6on 2 CK [Catalytic activity/Vol] 68 U/L Normal 26-[address] [facility] Comment on above: Performed By: #### C MREP #### [facility] [address] [place] [address] Dr. Norma Soto CK.MB [Mass/Vol] 1.18 ng/mL Normal <=3.60 [facility] Comment on above: Performed By: #### C MREP #### [facility] [address] [address] [address] Norma Soto HSTROP 125.5 pg/mL Critically high 4.0-51.3 [facility] Comment on above: Result Comment: CUT- OFF POINTS HAVE BEEN ESTABLISHED BASED ON THE FOURTH UNIVERSAL DEFINITIONS OF MYOCARDIAL INFARCTION. THE UPPER REFERENCE LIMIT (URL) OF TROPONIN, DEFINED THE 99TH PERCENTILE OF cTnI DISTRIBUTION IN A REFERENCE POPULATION, HAS BEEN CONFIRMED THE DECISION THRESHOLD FOR ND DIAGNOSIS. Performed By: #### C MREP #### [facility] [address] [place] [address] Dr. Norma Soto COVID-19 Positive/NegativeOr dered By: Jose Lan on 01-20-2022 SARS-CoV-2 (COVID-19) N gene HARJINDER+probe Ql (Resp) Negative Negative [facility] Comment on above: Testing for SARS-CoV -2 by RT-PCR This test was developed and its performance characteristics determined by [employer] and validated at the [facility]. This test has not been FDA cleared [...] and its performance characteristics determined by [employer] and validated at the [facility]. This test has not been FDA cleared [...] (COVID-19) Ag IA.rapid Ql (Resp) Negative Negative [facility] Comment on above: This is a duplicate Shivani SARS Antigen (KIERSTEN) result to be used for statistical tracking purpose only. Cannabinoids [Presence] in U rine by Screen methodOrdered By: Jose Lan on 01-20-2022 Cannabinoids Screen Ql (U) Positive Negative [facility] Comment on above: These are unconfirme d [...] on 01-20-2022 Cholesterol [Mass/Vol] 196 mg/dL 140-200 [facility] Comment on above: Chol less than 200 m g/dl low risk Chol 201-239 mg/dl borderline risk Chol 240 mg/dl and greater high risk Chol less than 200 m g/dl low riskChol 201-239 mg/dl borderline riskChol 240 mg/dl and greater high risk Cholesterol in LDL Calc [Mas s/Vol]Ordered By: Jose Lan on 01-20-2022 Cholesterol in LDL [Mass/Vol] 111 mg/dL 0-100 [facility] Comment on above: LDL ATP III CLASSIFI [...] 01-20-2022 Cholesterol in VLDL [Mass/Vol] 50 mg/dL [facility] Color Auto (U)Ordered By: Kanwal Lan on 01-20-2022 Color (U) Yellow Yellow [facility] Glucose mean value [Mass/vol ume] in Blood Estimated from glycated hemoglobinOrdered By: Jose Lan on 01-20-2022 Average glucose Estimated from glycated hemoglobin (Bld) [Mass/Vol] 163 mg/dL [facility] Hemoglobin A1c percentageOrd ered By: Jose Lan on 01-20-2022 HbA1c (Bld) [Mass fraction] 7.3 % 4.3-5.6 [facility] Comment on above: Increased risk for d iabetes: 5.7 - 6.4 diabetes: >6.4 glycemic control for adults with diabetes: <7.0 Increased risk for d iabetes: 5.7 - 6.4diabetes: >6.4glycemic control for adults with diabetes: <7.0 Ketones Auto test strip (U) [Mass/Vol]Ordered By: Jose Lan on 01-20-2022 Ketones (U) [Mass/Vol] Negative Negative [facility] Laboratory - Chemistry and C hemistry - challengeOrdered By: Jsoe Lan on 01-20-2022 Magnesium [Mass/Vol] 1.7 mg/dL 1.6-2.6 [facility] - Drug toxicology Ordered By: Jose Lan on 01-20-2022 Opiates Ql (U) Negative Negative [facility] - Microbiology an d Antimicrobial susceptibilityOrdered By: Jose Lan on 01-20-2022 SARS-CoV-2 (COVID-19) RNA HARJINDER+probe Ql (Unsp spec) N/A [facility] - UrinalysisOrder ed By: Jose Lan on 01-20-2022 Hyaline casts LM Ql (Urine sed) 0-8 [LPF] 0-8 [facility] Nitrite Test strip Ql (U)Ord ered By: Jose Lan on 01-20-2022 Nitrite Ql (U) Negative Negative [facility] No Panel InformationOrdered By: Jose Lan on 01-20-2022 SARS Antigen (LFIA) [facility] Phencyclidine Screen Ql (U)O rdered By: Jose Lan on 01-20-2022 Phencyclidine Ql (U) Negative Negative [facility] Protein Auto test strip (U) [Mass/Vol]Ordered By: Jose Lan on 01-20-2022 Protein (U) [Mass/Vol] Negative Negative [facility] Serum or plasma high density lipoprotein (HDL) cholesterol measurementOrdered By: Jose Lan on 01-20-2022 Cholesterol in HDL [Mass/Vol] 35 mg/dL 35-85 [facility] Comment on above: HDL CHOL ATP-III CLA [...] in HDL [Mass ratio] 5.6 {ratio} <5.0 [facility] Specific gravity Auto test s trip (U) [Rel density]Ordered By: Jose Lan on 01-20-2022 Specific gravity (U) [Rel density] 1.023 1.001-1.03 0 [facility] Squamous epithelial cells de tection in urine sediment by light microscopyOrdered By: Jose Lan on 01-20-2022 Epithelial cells.squamous LM Ql (Urine sed) 10-19 [HPF] 0-2 [facility] Triglyceride [Mass/volume] i n Serum or PlasmaOrdered By: Jose Lan on 01-20-2022 Triglyceride [Mass/Vol] 252 mg/dL 35-149 [facility] Comment on above: TRIG ATP III CLASSIF [...] High sensitivity method [Mass/Vol] 1576 pg/mL 0-15 [facility] Comment on above: Results called at 1405 on 01/20/22 Results called at 1409 on 01/20/22 Results called at 14 05 on 01/20/22 Results calledat 1409 on 01/20/22 Urine bacteria detection by automated methodOrdered By: Jose Lan on 01-20-2022 Bacteria Auto Ql (U) 2+ None Seen [facility] Urine clarity by refractomet ry automatedOrdered By: Jose Lan on 01-20-2022 Clarity Refractometry automated (U) Cloudy Clear [facility] Urine cocaine detectionOrder ed By: Jose Lan on 01-20-2022 Cocaine Ql (U) Negative Negative [facility] Urine glucose measurement by automated test strip (mass/volume)Ordered By: Jose Lan on 01-20-2022 Glucose Auto test strip (U) [Mass/Vol] Normal mg/dL Normal [facility] Urine hemoglobin detection b y automated test stripOrdered By: Jose Lan on 01-20-2022 Hemoglobin Auto test strip Ql (U) Negative Negative [facility] Urine leukocyte esterase det ection by automated test stripOrdered By: Jose Lan on 01-20-2022 Leukocyte esterase Auto test strip Ql (U) Negative Negative [facility] Urobilinogen Auto test strip (U) [Mass/Vol]Ordered By: Jose Lan on 01-20-2022 Urobilinogen (U) [Mass/Vol] Normal mg/dL Normal [facility] XR CHEST 1 Von 01-20-2022 XR CHEST [...] by: RAOUL MOTT Date: 2022-01-19 22:[address] [facility] pH Auto test strip (U)Ordere d By: Jose Lan on 01-20-2022 pH (U) 5.5 [pH] 5.0-9.0 [facility] CARDIAC LUPE ADMITon 022 CK [Catalytic activity/Vol] 73 U/L Normal 26-[address] [facility] Comment on above: Performed By: #### CINDY Sr MP ####[facility] [address] [place] [address]Dr. Norma Soto CK.MB [Mass/Vol] ng/mL Normal <=3.60 [facility] Comment on above: Performed By: #### CINDY Sr MP ####[facility] [address] [place] [address]Dr. Norma Soto HSTROP 8.1 pg/mL Normal 4.0-51.3 [facility] Comment on above: Result Comment: CUT- OFF POINTS HAVE BEEN ESTABLISHED BASED ON THE FOURTH UNIVERSAL DEFINITIONS OF MYOCARDIAL INFARCTION. THE UPPER REFERENCE LIMIT (URL) OF TROPONIN, DEFINED THE 99TH PERCENTILE OF cTnI DISTRIBUTION IN A REFERENCE POPULATION, HAS BEEN CONFIRMED THE DECISION THRESHOLD FOR ND DIAGNOSIS. Performed By: #### CINDY Sr MP ####[facility] [address] [place] [address]DrRl Soto THERESE 39 ng/mL Normal 9-82 [facility] Comment on above: Performed By: #### CINDY Sr MP ####[facility] [address] [place] [address]Dr. Norma Soto CBC AUTO DIFFon 01-19-2022 BASO # 0.1 103/ul Normal 0.0-0.[address] [facility] Comment on above: Performed By: #### C BC #### [facility] [address] [place] [address] Dr. Norma Soto Basophils/100 WBC (Bld) 0.5 % Normal 0.2-2.0 [facility] Comment on above: Performed By: #### C BC #### [facility] [address] [place] [address] Dr. Norma Soto EO # 0.1 103/ul Normal 0.0-0.7 [facility] Comment on above: Performed By: #### C BC #### [facility] [address] [place] [address] Dr. Norma Soto Eosinophils/100 WBC (Bld) 0.7 % Critically low 0.9-7.[address] [facility] Comment on above: Performed By: #### C BC #### [facility] [address] [place] [address] Dr. Norma Soto Erythrocyte distribution width (RBC) [Ratio] 11.7 % Normal 11.0-15.[address] [facility] Comment on above: Performed By: #### C BC #### [facility] [address] [place] [address] Dr. Norma Soto Hematocrit (Bld) [Volume fraction] 45.5 % Normal 36.0-48.[address] [facility] Comment on above: Performed By: #### C BC #### [facility] [address] [place] [address] Dr. Norma Soto Hemoglobin (Bld) [Mass/Vol] 16.3 g/dL Critically high 12.0-16.[address] [facility] Comment on above: Performed By: #### C BC #### [facility] [address] [place] [address] Dr. Norma Soto IG # 0.11 10e3/ul Critically high 0.00-0.03 [facility] Comment on above: Performed By: #### C BC #### [facility] [address] [place] [address] Dr. Norma Soto IG % 0.6 % Critically high 0.0-0.5 [facility] Comment on above: Performed By: #### C BC #### [facility] [address] [place] [address] Dr. Norma Soto LYMPH # 2.0 103/ul Normal 1.2-3.8 [facility] Comment on above: Performed By: #### C BC #### [facility] [address] [place] [address] Dr. Norma Soto Lymphocytes/100 WBC (Bld) 11.3 % Critically low 20.5-60.[address] [facility] Comment on above: Performed By: #### C BC #### [facility] [address] [place] [address] Dr. Norma Soto MANUAL DIFF REQ NO Normal [facility] Comment on above: Performed By: #### C BC #### [facility] [address] [place] [address] Dr. Norma Soto MCH (RBC) [Entitic mass] 31.3 pg Normal 26.7-34.[address] [facility] Comment on above: Performed By: #### C BC #### [facility] [address] [place] [address] Dr. Norma Soto MCHC (RBC) [Mass/Vol] 35.8 g/dL Critically high 29.9-35.[address] [facility] Comment on above: Performed By: #### C BC #### [facility] [address] [place] [address] Dr. Norma Soto MCV (RBC) [Entitic vol] 87.3 fL Normal 81.0-99.[address] [facility] Comment on above: Performed By: #### C BC #### [facility] [address] [place] [address] Dr. Norma Soto MONO # 0.7 103/ul Normal 0.3-0.8 [facility] Comment on above: Performed By: #### C BC #### [facility] [address] [place] [address] Dr. Norma Soto Monocytes/100 WBC (Bld) 4.1 % Normal 1.7-12.[address] [facility] Comment on above: Performed By: #### C BC #### [facility] [address] [place] [address] Dr. Norma Soto NEUT # 14.6 103/ul Critically high 1.4-6.5 [facility] Comment on above: Performed By: #### C BC #### [facility] [address] [place] [address] Dr. Norma Soto Neutrophils/100 WBC (Bld) 82.8 % Critically high 43.0-75.[address] [facility] Comment on above: Performed By: #### C BC #### [facility] [address] [place] [address] Dr. Norma Soto Platelet mean volume (Bld) [Entitic vol] 9.0 fL Critically low 9.5-13.[address] [facility] Comment on above: Performed By: #### C BC #### [facility] [address] [place] [address] Dr. Norma Soto PLT 362 103/ul Normal 150-[address] [facility] Comment on above: Performed By: #### C BC #### [facility] [address] [place] [address] Dr. Norma Soto RBC 5.21 106/ul Normal 4.20-5.[address] [facility] Comment on above: Performed By: #### C BC #### [facility] [address] [place] [address] Dr. Norma Soto WBC 17.6 103/ul Critically high 4.0-11.0 [facility] Comment on above: Performed By: #### C BC #### [facility] [address] [place] [address] Dr. Norma Soto D-DIMERon 01-19-2022 D-DIMER 0.45 mg/L FEU Normal <=0.59 [facility] Comment on above: Performed By: #### D DIM #### [facility] [address] [place] [address] Dr. Norma Soto D-DIMER COMMENTS SEE BELOW Normal [facility] Comment on above: Result Comment: Incr eases [...] hospitalization. Performed By: #### D DIM #### [facility] [address] [place] [address] Dr. Norma Soto PROF CHEM 8 (BAS METB)on Anion gap [Moles/Vol] 18.2 mmol/L Normal [facility] Comment on above: Performed By: #### B LILLIE, CMADM ####[facility] [address] [place] [id number]. Norma Soto Calcium [Mass/Vol] 9.5 mg/dL Normal 8.5-10.1 [facility] Comment on above: Performed By: #### B LILLIE, CMADM ####[facility] [address] [place] [id number]. Norma Soto Chloride [Moles/Vol] 99 mmol/L Normal 98-[address] [facility] Comment on above: Performed By: #### B LILLIE, CMADM ####[facility] [address] [place] [id number]. Norma Soto CO2 [Moles/Vol] 23.5 mmol/L Normal 21.0-32.0 [facility] Comment on above: Performed By: #### B LILLIE, CMADM ####[facility] [address] [place] [address]Dr. Norma Soto Creatinine [Mass/Vol] 0.91 mg/dL Normal 0.55-1.[address] [facility] Comment on above: Performed By: #### B LILLIE, CMADM ####[facility] [address] [place] [address]Dr. Norma Soto EGFR-AF KOSOVAN >60 Normal >=60 [facility] Comment on above: Performed By: #### B LILLIE, CMADM ####[facility] [address] [place] [id number]. Norma Soto EGFR-NON AF KOSOVAN >60 Normal >=[address] [facility] Comment on above: Performed By: #### B LILLIE, CMADM ####[facility] [address]eser[address] [place] [id number]. Norma Soto Glucose [Mass/Vol] 216 mg/dL Critically high 74-106 [facility] Comment on above: Performed By: #### B LILLIE, CMADM ####[facility] [address] [place] [phone]. Norma Soto Potassium [Moles/Vol] 3.7 mmol/L Normal 3.5-5.1 [facility] Comment on above: Performed By: #### B LILLIE, CMADM ####[facility] [address]upgi[address] [place] [address]Dr. Norma Soto Sodium [Moles/Vol] 137 mmol/L Normal 136-145 [facility] Comment on above: Performed By: #### B LILLIE, CMADM ####[facility] [address] [place] [address]Dr. Norma Soto Urea nitrogen [Mass/Vol] 10.0 mg/dL Normal 7.0-18.[address] [facility] Comment on above: Performed By: #### B LILLIE, CMADM ####[facility] [address] [place], [place] [address]Dr. Norma Soto Urea nitrogen/Creatinine [Mass ratio] 11.0 mg/mg Normal [facility] Comment on above: Performed By: #### B LILLIE, CINDY ####[facility] [address] [place], [place] [address]Dr. Norma Soto PROTIMEon 01-19-2022 INR Coag (PPP) [Relative time] 1.01 {INR} Normal [facility] Comment on above: Performed By: #### P T, PTT ####[facility] [address] [place], [place] [address]Dr. Norma Soto INR GUIDELINES SEE BELOW Normal [facility] Comment on above: Result Comment: RAQUEL RED INR: 2.0 - 3.0 CONDITIONS NOT LISTED BELOW 2.5 - 3.5 FOR PROSTHETIC HEART VALVE REPLACEMENT 2.5 - 3.5 RECURRENT THROMBOSIS Performed By: #### P T, PTT ####[facility] [address] [place], [place] [address]Dr. Norma Soto PT Coag (PPP) [Time] 10.9 s Normal 9.0-11.[address] [facility] Comment on above: Performed By: #### P T, PTT ####[facility] Ep[address]xs[address] [place], [place] [address]Dr. Norma Soto PTTon 01-19-2022 aPTT Coag (Bld) [Time] 27.3 s Normal 22.3-36.2 Th e [facility] Comment on above: Performed By: #### P T, PTT ####[facility] [address] [place] [address]Dr. Norma Charles A1C HEMOGLOBINon 07-13-2021 HbA1c (Bld) [Mass fraction] 8.0 % [employer] Other HbA1c (Bld) [Mass fraction]o n 07-13-2021 A1C HEMOGLOBIN [facility] [employer] Other CBC AUTO DIFFon 07-11-2021 BASO # 0.1 103/ul Normal 0.0-0.[address] [facility] Comment on above: Performed By: #### C BC ####[facility] [address] [place], [place] [address]Dr. Norma Soto Basophils/100 WBC (Bld) 0.6 % Normal 0.2-2.[address] [facility] Comment on above: Performed By: #### C BC ####[facility] [address] [place], [place] [address]Dr. Norma Soto EO # 0.2 103/ul Normal 0.0-0.[address] [facility] Comment on above: Performed By: #### C BC ####[facility] [address] [place], [place] [address]Dr. Norma Soto Eosinophils/100 WBC (Bld) 2.0 % Normal 0.9-7.[address] [facility] Comment on above: Performed By: #### C BC ####[facility] [address] [place], [place] [address]Dr. Norma Soto Erythrocyte distribution width (RBC) [Ratio] 12.2 % Normal 11.0-15.[address] [facility] Comment on above: Performed By: #### C BC ####[facility] [address] [place], [place] [address]Dr. Norma Soto Hematocrit (Bld) [Volume fraction] 43.2 % Normal 36.0-48.[address] [facility] Comment on above: Performed By: #### C BC ####[facility] [address] [place], [place] [id number]. Norma Soto Hemoglobin (Bld) [Mass/Vol] 14.4 g/dL Normal 12.0-16.0 [facility] Comment on above: Performed By: #### C BC ####[facility] [address]xfmq[address] [place] [address]Dr. Celyzeenat Soto IG # 0.03 10e3/ul Normal 0.00-0.03 [facility] Comment on above: Performed By: #### C BC ####[facility] [address]wb[address] [place] [address]Dr. Norma Soto IG % 0.4 % Normal 0.0-0.5 [facility] Comment on above: Performed By: #### C BC ####[facility] [address] [place], [place] [address]Dr. Norma Soto LYMPH # 2.4 103/ul Normal 1.2-3.8 [facility] Comment on above: Performed By: #### C BC ####[facility] Gh[address] [place], [place] [address]Dr. Norma Soto Lymphocytes/100 WBC (Bld) 28.7 % Normal 20.5-60.0 [facility] Comment on above: Performed By: #### C BC ####[facility] [address] [place] [address]Dr. Norma Soto MANUAL DIFF REQ NO Normal [facility] Comment on above: Performed By: #### C BC ####[facility] [address] [place], [place] [address]Dr. Celyzeenat Soto MCH (RBC) [Entitic mass] 31.3 pg Normal 26.7-34.0 [facility] Comment on above: Performed By: #### C BC ####[facility] [address] [place], [place] [address]DrRl Soto MCHC (RBC) [Mass/Vol] 33.3 g/dL Normal 29.9-35.2 [facility] Comment on above: Performed By: #### C BC ####[facility] [address] [place], [place] [address]Dr. Norma Soto MCV (RBC) [Entitic vol] 93.9 fL Normal 81.0-99.0 [facility] Comment on above: Performed By: #### C BC ####[facility] [address] [place], [place] [address]Dr. Norma Soto MONO # 0.5 103/ul Normal 0.3-0.8 [facility] Comment on above: Performed By: #### C BC ####[facility] [address] [place], [place] [address]Dr. Norma Charles Monocytes/100 WBC (Bld) 6.0 % Normal 1.7-12.0 [facility] Comment on above: Performed By: #### C BC ####[facility] Jrhorwbvac[address] [place], [place] [address]Dr. Norma Soto NEUT # 5.2 103/ul Normal 1.4-6.5 [facility] Comment on above: Performed By: #### C BC ####[facility] [address] [place], [place] [address]Dr. Norma Charles Neutrophils/100 WBC (Bld) 62.3 % Normal 43.0-75.0 [facility] Comment on above: Performed By: #### C BC ####[facility] [address] [place], [place] [address]Dr. Norma Charles Platelet mean volume (Bld) [Entitic vol] 9.5 fL Normal 9.5-13.5 [facility] Comment on above: Performed By: #### C BC ####[facility] [address] [place], [place] [address]Dr. Norma Charles PLT 281 103/ul Normal 150-450 [facility] Comment on above: Performed By: #### C BC ####[facility] [address] [place], [place] [address]Dr. Celyzeenat Charles RBC 4.60 106/ul Normal 4.20-5.40 [facility] Comment on above: Performed By: #### C BC ####[facility] [address] [place], [place] [address]DrRl Soto WBC 8.3 103/ul Normal 4.0-11.[address] [facility] Comment on above: Performed By: #### C BC ####[facility] [address] [place], [place] [address] S[address] CT ABD/PELV W CONon 07-11-19 [...] by: KURTIS CHAU Date: 2021-07-11 02:11 Normal [facility] LACTATE/LACTIC ACIDon 2021 Lactate [Moles/Vol] 1.0 mmol/L Normal 0.7-2.0 [facility] Comment on above: Performed By: #### L ACT #### [facility] [address] [place], [place] [address] Dr. Norma Soto LIPASEon 07-11-2021 Lipase [Catalytic activity/Vol] 42.0 U/L Normal 23.0-300.[address] [facility] Comment on above: Performed By: #### L IPA, LIVER, BMP #### [facility] [address] [place] [address] [address] Norma Soto LIVER PROFILEon 07-11-2021 Albumin [Mass/Vol] 3.2 g/dL Critically low 3.5-5.0 Th e [facility] Comment on above: Performed By: #### L IPA, LIVER, BMP #### [facility] [address] [place] [address] [address] Norma Soto Albumin/Globulin [Mass ratio] 0.9 {ratio} Normal [facility] Comment on above: Performed By: #### L IPA, LIVER, BMP #### [facility] [address] [place] [address] Dr. Norma Soto ALP [Catalytic activity/Vol] 59 U/L Normal 38-[address] [facility] Comment on above: Performed By: #### L IPA, LIVER, BMP #### [facility] [address] [place] [address] Dr. Norma Soto ALT [Catalytic activity/Vol] 22 U/L Normal 9-[address] [facility] Comment on above: Performed By: #### L IPA, LIVER, BMP #### [facility] [address] [place] [address] Dr. Norma Soto AST [Catalytic activity/Vol] 16 U/L Normal 14-36 [facility] Comment on above: Performed By: #### L IPA, LIVER, BMP #### [facility] [address] [place] [address] Dr. Norma Soto BILI, CONJUGATED 0.0 mg/dL Normal 0.0-0.3 [facility] Comment on above: Performed By: #### L IPA, LIVER, BMP #### [facility] [address] [place] [address] Dr. Norma Soto Bilirubin [Mass/Vol] 0.2 mg/dL Normal 0.2-1.[address] [facility] Comment on above: Performed By: #### L IPA, LIVER, BMP #### [facility] [address] [place] [address] Dr. Norma Soto Globulin (S) [Mass/Vol] 3.5 g/dL Normal [facility] Comment on above: Performed By: #### L IPA, LIVER, BMP #### [facility] [address] [place] [address] [address] Norma Soto Protein [Mass/Vol] 6.7 g/dL Normal 6.1-8.2 [facility] Comment on above: Performed By: #### L IPA, LIVER, BMP #### [facility] [address] [place] [address] [address] Norma Soto PROF CHEM 8 (BAS METB)on Anion gap [Moles/Vol] 14.2 mmol/L Normal [facility] Comment on above: Performed By: #### L IPA, LIVER, BMP #### [facility] [address] [place] [address] Dr. Norma Soto Calcium [Mass/Vol] 8.7 mg/dL Normal 8.4-10.2 [facility] Comment on above: Performed By: #### L IPA, LIVER, BMP #### [facility] [address] [place] [address] [address] Norma Soto Chloride [Moles/Vol] 102 mmol/L Normal 98-[address] [facility] Comment on above: Performed By: #### L IPA, LIVER, BMP #### [facility] [address] [place] [address] Dr. Norma Soto CO2 [Moles/Vol] 23.7 mmol/L Normal 22.0-30.0 [facility] Comment on above: Performed By: #### L IPA, LIVER, BMP #### [facility] [address] [place] [address] [address] Norma Soto Creatinine [Mass/Vol] 0.51 mg/dL Critically low 0.52-1.[address] [facility] Comment on above: Performed By: #### L IPA, LIVER, BMP #### [facility] [address] [place] [address] [address] Norma Soto EGFR-AF KOSOVAN >60 Normal >=60 [facility] Comment on above: Performed By: #### L IPA, LIVER, BMP #### [facility] [address] [place] [address] [address] Norma Soto EGFR-NON AF KOSOVAN >60 Normal >=[address] [facility] Comment on above: Performed By: #### L IPA, LIVER, BMP #### [facility] [address] [place] [address] [address] Norma Soto Glucose [Mass/Vol] 210 mg/dL Critically high 74-106 [facility] Comment on above: Performed By: #### L IPA, LIVER, BMP #### [facility] [address] [place] [address] [address] Norma Soto Potassium [Moles/Vol] 3.9 mmol/L Normal 3.4-5.[address] [facility] Comment on above: Performed By: #### L IPA, LIVER, BMP #### [facility] [address] [place] [address] [address] Norma Soto Sodium [Moles/Vol] 136 mmol/L Critically low 137-145 [facility] Comment on above: Performed By: #### L IPA, LIVER, BMP #### [facility] [address] [place] [address] [address] Norma Soto Urea nitrogen [Mass/Vol] 7.0 mg/dL Normal 7.0-17.[address] [facility] Comment on above: Performed By: #### L IPA, LIVER, BMP #### [facility] [address] [place] [address] [address] Norma Soto Urea nitrogen/Creatinine [Mass ratio] 13.7 mg/mg Normal [facility] Comment on above: Performed By: #### L IPA, LIVER, BMP #### [facility] [address] [place] [address] [address] Norma Soto XR RIBS LT PA [...] CYRUS SOTO Date: 2021-03-06 14:43 Normal [facility] CT ABDOMEN PELVIS WO CONTRAS Ton [...] Rasta Albright DO 01/23/21 Final result Normal [facility] UA w/Reflex Cultureon 2020 Bilirubin, SemiQt,Ur Negative Normal NEG [facility] Comment on above: Performed By: #### U MICAO, UA #### [facility] [address] [place], [facility] Floor Space Allocator: Alfredo Best MD Blood, Urine Negative Normal NEG [facility] Comment on above: Performed By: #### U MICAO, UA #### [facility] [address] [place], [facility] Floor Space Allocator: Alfredo Best MD Clarity (U) CLEAR Normal CLEAR [facility] Comment on above: Performed By: #### U MICAO, UA #### [facility] [address] [place], [facility] Floor Space Allocator: Alfredo Best MD Color (U) YELLOW Normal YEL [facility] Comment on above: Performed By: #### U MICAO, UA #### [facility] [address] [place], [facility] Floor Space Allocator: Alfredo Best MD Glucose Ql (U) TRACE Abnormal NEG [facility] Comment on above: Performed By: #### U MICAO, UA #### [facility] [place] [address] [place], [facility] Floor Space Allocator: Alfredo Best MD Ketones Ql (U) TRACE Abnormal NEG [facility] Comment on above: Performed By: #### U MICAO, UA #### [facility] [address] [address] [place], [facility] Floor Space Allocator: Alfredo Best MD Leukocyte esterase Test strip Ql (U) TRACE Abnormal NEG [facility] Comment on above: Performed By: #### U MICAO, UA #### [facility] [address] [place], [facility] Floor Space Allocator: Alfredo Best MD Nitrite,Ur Negative Normal [facility] Comment on above: Performed By: #### U MICAO, UA #### [facility] [address] [place], [facility] Floor Space Allocator: Alfredo Best MD PH,Ur 6.0 Normal 5.0-9.0 [facility] Comment on above: Performed By: #### U MICAO, UA #### [facility] [address] [place] [address] Floor Space Allocator: Alfredo Best MD Protein Ql (U) Negative Normal NEG [facility] Comment on above: Performed By: #### U MICAO, UA #### [facility] [address] [place], [facility] Floor Space Allocator: Alfredo Best MD Spec. [place],Ur >1.030 High 1.010-1.02 0 [facility] Comment on above: Performed By: #### U MICAO, UA #### [facility] [address] [place] [address] Dr. [place], [place] [address] Floor Space Allocator: Alfredo Best MD Urobilinogen,Ur Normal Normal NORM [facility] Comment on above: Performed By: #### U MICAO, UA #### [address] [place], [place] [address] Floor Space Allocator: Alfredo Best MD Comment NOT REPORTED Normal [facility] Comment on above: Performed By: #### U MICAO, UA #### [facility] [address] [place] [address] Dr. [place], [place] [address] Floor Space Allocator: Alfredo Best MD Urinalysis,Microon 1 ----- Normal [facility] Comment on above: Performed By: #### C DP, CMPX #### [facility] [address] [place], [place] [id number] Floor Space Allocator: Alfredo Best MD Epithelial cells LM Ql (Urine sed) 20 TO 50 Normal 0-25 [facility] Comment on above: Performed By: #### C DP, CMPX #### [facility] [address] [place] [address] Floor Space Allocator: Alfredo Best MD Urine RBC's None Normal 0-2 [facility] Comment on above: Performed By: #### C DP, CMPX #### [facility] [address] [place] [address] Floor Space Allocator: Alfredo Best MD Urine WBC's 0 TO 2 Normal 0-5 [facility] Comment on above: Performed By: #### C DP, CMPX #### [facility] [address] [place] [address] Floor Space Allocator: Alfredo Best MD Amorphous sediment LM Ql (Urine sed) NOT REPORTED Normal NONE [facility] Comment on above: Performed By: #### C DP, CMPX #### [facility] [address] [place], [place] [id number] Floor Space Allocator: Alfredo Best MD Bacteria NOT REPORTED Normal NONE [facility] Comment on above: Performed By: #### C DP, CMPX #### [facility] [address] [place] [address] Floor Space Allocator: Alfredo Best MD Casts NOT REPORTED Normal [facility] Comment on above: Performed By: #### C DP, CMPX #### [facility] [address] [place] [address] Floor Space Allocator: Alferdo Best MD Crystals LM Nom (Urine sed) NOT REPORTED Normal [facility] Comment on above: Performed By: #### C DP, CMPX #### [facility] [address] [place] [address] Floor Space Allocator: Alfredo Best MD Epithelial, Renal NOT REPORTED Normal 0 [facility] Comment on above: Performed By: #### C DP, CMPX #### [facility] [address] [place], [place] [id number] Floor Space Allocator: Alfredo Best MD Mucus Strands NOT REPORTED Normal NONE [facility] Comment on above: Performed By: #### C DP, CMPX #### [facility] [address] [place] [address] Floor Space Allocator: Alfredo Best MD Other Observations NOT REPORTED Normal [facility] Comment on above: Performed By: #### C DP, CMPX #### [facility] [address] [place], [place] [phone] Floor Space Allocator: Alfredo Best MD Trichomonas NOT REPORTED Normal NONE [facility] Comment on above: Performed By: #### C DP, CMPX #### [facility] [address] [place] [address] Floor Space Allocator: Alfredo Best MD Yeast NOT REPORTED Normal [facility] Comment on above: Performed By: #### C DP, CMPX #### [facility] [address] [place] [address] Floor Space Allocator: Alfredo Best MD CBC Auto DifferentialOrdered By: Neelima Dutton on 01-23-2021 Absolute Eos # 0.33 [facility] Work Phone: Absolute Immature Granulocyte 0.08 [facility] Work Phone: Absolute Lymph # 3.17 [facility] Work Phone: Absolute [place] # 0.50 [facility] Work Phone: Basophils (Bld) [#/Vol] 0.09 10*3/uL [facility] Work Phone: Basophils/100 WBC (Bld) 1 % 0 - 2 % [facility] Work Phone: Differential Type NOT REPORTED [facility] Work Phone: Eosinophils/100 WBC (Bld) 2 % 1 - 4 % [facility] Work Phone: Hematocrit (Bld) [Volume fraction] 40.4 % 36.3 - 47.1 % [employer] Phone: Hemoglobin.gastrointes tinal spec 1 Ql (Stl) 13.6 g/dL 11.9 - 15.1 g/dL [employer] Phone: Immature granulocytes/100 WBC (Bld) 1 % High 0 [employer] Phone: Interpretation and review of laboratory results Abnormal [employer] Phone: Lymphocytes/100 WBC (Bld) 22 % Low 24 - 43 % [employer] Phone: MCH (RBC) [Entitic mass] 31.2 pg 25.2 - 33.5 pg [employer] Phone: MCHC (RBC) [Mass/Vol] 33.7 g/dL 28.4 - 34.8 g/dL [employer] Phone: MCV (RBC) [Entitic vol] 92.7 fL 82.6 - 102.9 fL [employer] Phone: Monocytes/100 WBC (Bld) 4 % 3 - 12 % [employer] Phone: NRBC Automated 0.0 0.0 per 100 WBC [employer] Phone: Platelet distribution width (Bld) [Ratio] 12.3 % 11.8 - 14.4 % [employer] Phone: Platelet Estimate NOT REPORTED [employer] Phone: Platelet mean volume (Bld) [Entitic vol] 9.4 fL 8.1 - 13.5 fL [employer] Phone: Platelets (Bld) [#/Vol] 329 10*3/uL [employer] Phone: RBC (Bld) [#/Vol] 4.36 10*6/uL 3.95 - 5.11 m/uL [employer] Phone: RBC (Bld) [#/Vol] NOT REPORTED [facility] [employer] Work Phone: Segmented neutrophils/100 WBC (Bld) 70 % High 36 - 65 % [facility] Work Phone: Segs Absolute 10.03 High [facility] [employer] Work Phone: WBC (Bld) [#/Vol] 14.2 10*3/uL High [facility] Work Phone: WBC (Bld) [#/Vol] NOT REPORTED [facility] Work Phone: [employer] Work Phone: CBC with Diffon 01-23-2021 Abs. Basophil 0.09 k/uL Normal 0.00-0.20 [facility] Comment on above: Performed By: #### Radha HSU UA #### [facility] [address] [place] [address] Dr. [place], [facility] Floor Space Allocator: Alfredo Best MD Abs.Imm.Granulocyte 0.08 k/uL Normal 0.00-0.30 [facility] Comment on above: Performed By: #### Radha HSU UA #### [address] [place], [place] [id number] Floor Space Allocator: Alfredo Best MD Abs.Neutrophil (Seg) 10.03 k/uL High 1.50-8.10 [facility] Comment on above: Performed By: #### Radha HSU UA #### [address] [place], [place] [id number] Floor Space Allocator: Alfredo Best MD Basophils/100 WBC (Bld) 1 % Normal 0-2 [facility] Comment on above: Performed By: #### U SHADI UA #### [facility] [address] [place], [place] [id number] Floor Space Allocator: Alfredo Best MD Eosinophils (Bld) [#/Vol] 0.33 10*3/uL Normal 0.00-0.44 [facility] Comment on above: Performed By: #### U SHADI, UA #### [facility] [address] [place], [facility] Floor Space Allocator: Alfredo Best MD Eosinophils/100 WBC (Bld) 2 % Normal 1-4 [facility] Comment on above: Performed By: #### U SHADI, UA #### [facility] [address] [place], [facility] Floor Space Allocator: Alfredo Best MD Erythrocyte distribution width (RBC) [Ratio] 12.3 % Normal 11.8-14.4 [facility] Comment on above: Performed By: #### U SHADI UA #### [facility] [address] [place], [facility] Floor Space Allocator: Alfredo Best MD Hematocrit (Bld) [Volume fraction] 40.4 % Normal 36.3-47.1 [facility] Comment on above: Performed By: #### U SHADI UA #### [facility] [address] [place], [facility] Floor Space Allocator: Alfredo Best MD Hemoglobin (Bld) [Mass/Vol] 13.6 g/dL Normal 11.9-15.1 [facility] Comment on above: Performed By: #### U SHADI UA #### [facility] [address] [place], [facility] Floor Space Allocator: Alfredo Best MD Immature granulocytes/100 WBC (Bld) 1 % High 0 [facility] Comment on above: Performed By: #### U SHADI, UA #### [facility] [address] [place], [facility] Floor Space Allocator: Alfredo Best MD Lymphocytes (Bld) [#/Vol] 3.17 10*3/uL Normal 1.10-3.70 [facility] Comment on above: Performed By: #### U SHADI, UA #### [facility] [address] [place], [place] [id number] Floor Space Allocator: Alfredo Best MD Lymphocytes/100 WBC (Bld) 22 % Low 24-43 [facility] Comment on above: Performed By: #### U MICAO, UA #### [facility] [address] [place], [place] [id number] Floor Space Allocator: Alfredo eBst MD MCH (RBC) [Entitic mass] 31.2 pg Normal 25.2-33.5 [facility] Comment on above: Performed By: #### U NADEGEO, UA #### [facility] [address] [place] [facility] Floor Space Allocator: Alfredo Best MD MCHC (RBC) [Mass/Vol] 33.7 g/dL Normal 28.4-34.8 [facility] Comment on above: Performed By: #### U NADEGEO, UA #### [facility] [address] [place], [facility] Floor Space Allocator: Alfredo Best MD MCV (RBC) [Entitic vol] 92.7 fL Normal 82.6-102.9 [facility] Comment on above: Performed By: #### U MICAO, UA #### [facility] [address] [place], [facility] Floor Space Allocator: Alfredo Best MD Monocytes (Bld) [#/Vol] 0.50 10*3/uL Normal 0.10-1.20 [facility] Comment on above: Performed By: #### U MICAO, UA #### [facility] [address] [place], [place] [phone] Floor Space Allocator: Alfredo Best MD Monocytes/100 WBC (Bld) 4 % Normal 3-12 [facility] Comment on above: Performed By: #### U MICAO, UA #### [facility] [address] [place], [facility] Floor Space Allocator: Alfredo Best MD Neutrophil (Seg) 70 % High 36-65 [facility] Comment on above: Performed By: #### U SHADI, UA #### [facility] [address] [place], [place] [id number] Floor Space Allocator: Alfredo Best MD NRBC Automated 0.0 per 100 WBC Normal 0.0 [facility] Comment on above: Performed By: #### U SHADI, UA #### [facility] [address] [place], [place] [id number] Floor Space Allocator: Alfredo Best MD Platelet mean volume (Bld) [Entitic vol] 9.4 fL Normal 8.1-13.5 [facility] Comment on above: Performed By: #### Radha HSU UA #### [facility] [address] [place], [place] [phone] Floor Space Allocator: Alfredo Best MD Platelets (Bld) [#/Vol] 329 10*3/uL Normal 138-453 [facility] Comment on above: Performed By: #### U SHADI UA #### [facility] [address] [place], [place] 2747383 Floor Space Allocator: Alfredo Best MD RBC (Bld) [#/Vol] 4.36 10*6/uL Normal 3.95-5.11 [facility] Comment on above: Performed By: #### U SHADI, UA #### [facility] [address] [place], [place] [id number] Floor Space Allocator: Alfredo Best MD WBC (Bld) [#/Vol] 14.2 10*3/uL High 3.5-11.3 [facility] Comment on above: Performed By: #### U SHADI, UA #### [facility] [address] [place], [place] [id number] Floor Space Allocator: Alfredo Best MD Auto Diff Performed NOT REPORTED Normal [facility] Comment on above: Performed By: #### U MICAO, UA #### [facility] [address] [place] [address] Floor Space Allocator: Alfredo Best MD Platelet Estimate NOT REPORTED Normal [facility] Comment on above: Performed By: #### U MICAO, UA #### [facility] [address] [place] [id number] Floor Space Allocator: Alfredo Best MD RBC morphology finding Nom (Bld) NOT REPORTED Normal [facility] Comment on above: Performed By: #### U MICAO, UA #### [facility] [address] [place] [address] Floor Space Allocator: Alrfedo Best MD WBC Morphology NOT REPORTED Normal [facility] Comment on above: Performed By: #### U MICAO, UA #### [facility] [address] [place] [address] Floor Space Allocator: Alfredo Best MD CT ABDOMEN PELVIS WO CONTRAS T Additional Contrast? NoneOrdered By: Neelima Dutton on 01-23-2021 1. No acute findings within the abdomen or pelvis 2. No intrarenal calculi or evidence of hydronephrosis [facility] Work Phone: EXAMINATION: CT OF T [...] Tissues: No acute osseous abnormality is present. [employer] Phone: Nuno, Mhpn Incoming Radiant Results From [employer]/DNA13 - 01/23/2021 10:07 PM EDT EXAMINATION: CT [...] No intrarenal calculi or evidence of hydronephrosis [facility] Work Phone: [facility] Work Phone: Comp Metabolic Pr/rfx MGon 0 01-23-2021 Potassium [Moles/Vol] 3.4 mmol/L Low 3.7-5.3 [facility] Comment on above: Performed By: #### Radha HSU UA #### [facility] [address] [place] [address] Floor Space Allocator: Alfredo Best MD (cont.) [facility] Comment on above: Result Comment: Aver age GFR for 30-39 years old: 107 mL/min/1.73sq m Chronic Kidney Disease: <60 mL/min/1.73sq m Kidney failure: <15 mL/min/1.73sq m eGFR calculated using average adult body mass. Additional eGFR calculator available at: http://www.enGene/multiple_crcl_2012.htm Performed By: #### CHICHI RECIO #### [facility] [address] [place] [address] Floor Space Allocator: Alfredo Best MD Albumin [Mass/Vol] 3.9 g/dL Normal 3.5-5.2 [facility] Comment on above: Performed By: #### CHICHI RECIO #### [facility] [address] [place] [address] Floor Space Allocator: Alfredo Best MD Albumin/Glob Ratio 1.6 Normal 1.0-2.5 [facility] Comment on above: Performed By: #### CHICHI RECIO #### [facility] [address] [place] [address] Floor Space Allocator: Alfredo Best MD Alkaline Phos 61 U/L Normal 35-104 [facility] Comment on above: Performed By: #### CHICHI RECIO #### [facility] [address] [place], [place] [id number] Floor Space Allocator: Alfredo Best MD ALT [Catalytic activity/Vol] 7 U/L Normal 5-33 [facility] Comment on above: Performed By: #### U MICAO, UA #### [facility] [address] [place], [place] [phone] Floor Space Allocator: Alfredo Best MD Anion gap [Moles/Vol] 12 mmol/L Normal 9-17 [facility] Comment on above: Performed By: #### U MICAO, UA #### [facility] [address] [place], [place] [phone] Floor Space Allocator: Alfredo Best MD AST [Catalytic activity/Vol] 8 U/L Normal <32 [facility] Comment on above: Performed By: #### U NADEGEO, UA #### [facility] [address] [place], [place] 1856383 Floor Space Allocator: Alfredo Best MD Bilirubin [Mass/Vol] 0.17 mg/dL Low 0.3-1.2 [facility] Comment on above: Performed By: #### U NADEGEO, UA #### [facility] [address] [place], [place] [phone] Floor Space Allocator: Alfredo Best MD BUN/CRE Ratio 17 Normal 9-20 [facility] Comment on above: Performed By: #### U MICAO, UA #### [facility] [address] [place], [place] [phone] Floor Space Allocator: Alfredo Best MD Calcium [Mass/Vol] 8.9 mg/dL Normal 8.6-10.4 [facility] Comment on above: Performed By: #### U MICAO, UA #### [facility] [address] [place], [place] [phone] Floor Space Allocator: Alfredo Best MD Chloride [Moles/Vol] 102 mmol/L Normal 98-107 [facility] Comment on above: Performed By: #### U MICAO, UA #### [facility] [address] [place], [place] [phone] Floor Space Allocator: Alfredo Best MD CO2 [Moles/Vol] 22 mmol/L Normal 20-31 [facility] Comment on above: Performed By: #### U MICAO, UA #### [facility] [address] [place], [place] 100[address]83 Floor Space Allocator: Alfredo Best MD Creatinine [Mass/Vol] 0.76 mg/dL Normal 0.50-0.90 [facility] Comment on above: Performed By: #### U MICAO, UA #### [facility] [address] [place], [place] [phone] Floor Space Allocator: Alfredo Best MD GFR, Amer >60 Normal >60 [facility] Comment on above: Performed By: #### U MICAO, UA #### [facility] [address] [place], [place] 1840383 Floor Space Allocator: Alfredo Best MD GFR,non Amer >60 Normal >60 [facility] Comment on above: Performed By: #### U MICAO, UA #### [facility] [address] [place] [address] Floor Space Allocator: Alfredo Best MD Glucose [Mass/Vol] 262 mg/dL High 70-99 [facility] Comment on above: Performed By: #### U MICAO, UA #### [facility] [address] [place], [place] [phone] Floor Space Allocator: Alfredo Best MD Protein [Mass/Vol] 6.3 g/dL Low 6.4-8.3 [facility] Comment on above: Performed By: #### U MICAO, UA #### [facility] [address] [place], [place] [address] Floor Space Allocator: Alfredo Best MD Sodium [Moles/Vol] 136 mmol/L Normal 135-144 [facility] Comment on above: Performed By: #### Radha HSU UA #### [facility] [address] [place] [address] Floor Space Allocator: Alfredo Best MD Staging: Normal [facility] Comment on above: Result Comment: Stag e 1: Some kidney damage normal GFR Stage 2: Mild kidney damage GFR 60-89 Stage 3: Moderate kidney damage GFR 30-59 Stage 4: Severe kidney damage GFR 15-29 Stage 5: Severe kidney damage GFR <15 ESRD - chronic treatment by dialysis or transplant Performed By: #### CHICHI RECIO #### [facility] [address] [place] [address] Floor Space Allocator: Alfredo Best MD Urea nitrogen [Mass/Vol] 13 mg/dL Normal 6-20 [facility] Comment on above: Performed By: #### CHICHI RECIO #### [facility] [address] [place] [address] Floor Space Allocator: Alfredo Best MD Comprehensive Metabolic Pane l w/ Reflex to MGOrdered By: Neelima Dutton on 01-23-2021 Albumin [Mass/Vol] 3.9 g/dL 3.5 - 5.2 g/dL [employer] Phone: Albumin/Globulin [Mass ratio] 1.6 {ratio} [employer] Phone: ALP (Bld) [Catalytic activity/Vol] 61 U/L 35 - 104 U/L [facility] Phone: ALT [Catalytic activity/Vol] 7 U/L 5 - 33 U/L [employer] Phone: Anion gap [Moles/Vol] 12 mmol/L 9 - 17 mmol/L [employer] Phone: AST [Catalytic activity/Vol] 8 U/L <32 [employer] Phone: Bilirubin [Mass/Vol] 0.17 mg/dL Low 0.3 - 1 .2 mg/dL [employer] Phone: Calcium [Mass/Vol] 8.9 mg/dL 8.6 - 10. 4 mg/dL [employer] Phone: Chloride [Moles/Vol] 102 mmol/L 98 - 10 7 mmol/L [employer] Phone: CO2 [Moles/Vol] 22 mmol/L 20 - 31 mmol/L [employer] Phone: Creatinine [Mass/Vol] 0.76 mg/dL 0.50 - 0.90 mg/dL [employer] Phone: Free PSA/Total PSA [Mass fraction] 6.3 g/dL Low 6.4 - 8.3 g/dL [employer] Phone: GFR >60 >60 mL/min [employer] Phone: GFR Non- >60 >60 mL/min [employer] Phone: Glucose [Mass/Vol] 262 mg/dL High 70 - 99 mg/dL [employer] Phone: Interpretation and review of laboratory results Abnormal [employer] Phone: Potassium [Moles/Vol] 3.4 mmol/L Low 3.7 - 5.3 mmol/L [employer] Phone: Sodium [Moles/Vol] 136 mmol/L 135 - 144 mmol/L [employer] Phone: Urea nitrogen (BldV) [Mass/Vol] 13 mg/dL 6 - 20 mg/dL [employer] Phone: Urea nitrogen/Creatinine (Bld) [Mass ratio] 17 [employer] Phone: [employer] Phone: Laboratory - Chemistry and C hemistry - challengeOrdered By: Neelima Dutton on 01-23-2021 GFR/1.73 sq M.predicted MDRD (S/P/Bld) [Vol rate/Area] [facility] [employer] Phone: Comment on above: Average GFR for 30-3 9 years old: 107 mL/min/1.73sq m Chronic Kidney Disease: <60 mL/min/1.73sq m Kidney failure: <15 mL/min/1.73sq m eGFR calculated using average adult body mass. Additional eGFR calculator available at: http://www.enGene/multiple_crcl_2012.htm Stage 1: Some kidney damage normal GFR Stage 2: Mild kidney damage GFR 60-89 Stage 3: Moderate kidney damage GFR 30-59 Stage 4: Severe kidney damage GFR 15-29 Stage 5: Severe kidney damage GFR <15 ESRD - chronic treatment by dialysis or transplant Lactate, Sepsison 01-23-2021 Lactic Acid, Sepsis 1.4 mmol/L Normal 0.5-1.9 [facility] Comment on above: Performed By: #### U SHADI, UA #### [facility] [address] [place] [address] Floor Space Allocator: Alfredo Best MD Lactic Acid,Sep Wbld NOT REPORTED Normal 0.5-1.9 [facility] Comment on above: Performed By: #### U SHADI, UA #### [facility] [address] [place] [address] Floor Space Allocator: Alfredo Best MD Lactate, SepsisOrdered By: Lata Dutton on 01-23-2021 Lactic Acid, Sepsis 1.4 mmol/L 0.5 - 1. 9 mmol/L [facility] [employer] Phone: Lactic Acid, Sepsis, Whole Blood NOT REPORTED 0.5 - 1.9 mmol/L [facility] [employer] Phone: [employer] Phone: Lipaseon 01-23-2021 Lipase [Catalytic activity/Vol] 22 U/L Normal 13-60 [facility] Comment on above: Performed By: #### U MICAO, UA #### [facility] [address] [place] [address] Floor Space Allocator: Alfredo Best MD LipaseOrdered By: Neelima rodríguez on 01-23-2021 Lipase [Catalytic activity/Vol] 22 U/L 13 - 60 U/L [facility] Work Phone: [facility] Work Phone: Magnesiumon 01-23-2021 Magnesium [Mass/Vol] 1.7 mg/dL Normal 1.6-2.6 [facility] Comment on above: Performed By: #### U SHADI, UA #### [facility] [address] [place] [address] Floor Space Allocator: Alfredo Best MD MagnesiumOrdered By: Neelima Dutton on 01-23-2021 Magnesium [Mass/Vol] 1.7 mg/dL 1.6 - 2 .6 mg/dL [facility] [employer] Work Phone: [facility] Work Phone: Microscopic UrinalysisOrdere d By: Neelima Dutton on 01-23-2021 - [facility] Work Phone: Amorphous, UA NOT REPORTED None [facility] Work Phone: Bacteria, UA NOT REPORTED None [facility] Work Phone: Casts UA NOT REPORTED /LPF [facility] Work Phone: Crystals, UA NOT REPORTED None /HPF [facility] Work Phone: Epithelial Cells UA 20 TO 50 [facility] Work Phone: Mucus, UA NOT REPORTED None [facility] Work Phone: Other Observations UA NOT REPORTED NOT REQ. M [facility] [employer] Work Phone: RBC, UA None [facility] Work Phone: Renal Epithelial, UA NOT REPORTED 0 /HPF [facility] Work Phone: Trichomonas, UA NOT REPORTED None [facility] Work Phone: WBC, UA 0 TO 2 [facility] [employer] Work Phone: Yeast, UA NOT REPORTED None [facility] [employer] Work Phone: [facility] [employer] Work Phone: Urinalysis Reflex to Culture Ordered By: Neelima Dutton on 01-23-2021 Bilirubin Urine [facility] Work Phone: Color, UA YELLOW YELLOW [facility] [employer] Work Phone: Glucose, Ur TRACE Abnormal NEGATIVE [facility] [employer] Work Phone: Interpretation and review of laboratory results Abnormal [facility] [employer] Work Phone: Ketones Ql (U) TRACE Abnormal NEGATIVE [facility] Work Phone: Leukocyte esterase Test strip Ql (U) TRACE Abnormal NEGATIVE [facility] [employer] Work Phone: Nitrite, Urine Negative NEGATIVE [facility] Work Phone: pH, UA 6.0 [facility] [employer] Work Phone: Protein, UA Negative NEGATIVE [facility] Work Phone: Specific [place], UA >1.030 High [facility] [employer] Work Phone: Turbidity UA CLEAR CLEAR [facility] [employer] Work Phone: Urinalysis Comments NOT REPORTED [facility] [employer] Work Phone: Urine Hgb Negative NEGATIVE [facility] [employer] Work Phone: Urobilinogen, Urine Normal Normal [facility] [employer] Work Phone: [facility] [employer] Work Phone: XR ANKLE RIGHT (MIN 3 VIEWS) [...] Talib Littlejohn MD 10/06/20 Final result Normal [facility] XR FOOT RIGHT (MIN 3 VIEWS)o n [...] Talib Littlejohn MD 10/06/20 Final result Normal [facility] XR TIBIA FIBULA RIGHT (2 VIE WS)on [...] Talib Littlejohn MD 10/06/20 Final result Normal [facility] CBC Auto Differentialon 11-0 Basophils (Bld) [#/Vol] 0.05 10*3/uL [place] Basophils/100 WBC (Bld) 1 % 0 - 2 % [place] Differential Type NOT REPORTED [place] Eosinophils (Bld) [#/Vol] 10*3/uL [place] Eosinophils/100 WBC (Bld) 0 % Low 1 - 4 % [place] Erythrocyte distribution width (RBC) [Ratio] 11.5 % Low 11.8 - 14.4 % [place] Hematocrit (Bld) [Volume fraction] 45.0 % 36.3 - 47.1 % [place] Hemoglobin (Bld) [Mass/Vol] 15.0 g/dL 11.9 - 15.1 g/dL [place] Immature granulocytes (Bld) [#/Vol] 0.04 10*3/uL [place] Immature granulocytes (Bld) [#/Vol] 0 % 0 [place] Interpretation and review of laboratory results Abnormal [place] Lymphocytes (Bld) [#/Vol] 1.64 10*3/uL [place] Lymphocytes/100 WBC (Bld) 16 % Low 24 - 43 % [place] MCH (RBC) [Entitic mass] 29.9 pg 25.2 - 33.5 pg [place] MCHC (RBC) [Mass/Vol] 33.3 g/dL 28.4 - 34.8 g/dL [place] MCV (RBC) [Entitic vol] 89.8 fL 82.6 - 102.9 fL [place] Monocytes (Bld) [#/Vol] 0.53 10*3/uL [place] Monocytes/100 WBC (Bld) 5 % 3 - 12 % [place] Platelet mean volume (Bld) [Entitic vol] 9.4 fL 8.1 - 13.5 fL [place] Platelets (Bld) [#/Vol] NOT REPORTED [place] Platelets (Bld) [#/Vol] 256 10*3/uL [place] RBC (Bld) [#/Vol] 5.01 10*6/uL 3.95 - 5.11 m/uL [place] RBC morphology finding Nom (Bld) NOT REPORTED [place] Segmented neutrophils/100 WBC (Bld) 78 % High 36 - 65 % [place] Segs Absolute 7.91 [place] WBC (Bld) [#/Vol] 0.0 10*3/uL 0.0 per 100 WBC [place] WBC (Bld) [#/Vol] 10.2 10*3/uL [place] WBC Morphology NOT REPORTED [place] COVID-19, PCRon 04-03-2020 SARS-CoV-2, Rapid Not Detected Not Detected [place] Comment on above: Rapid NAAT: The [...] management decisions. Fact sheet for Healthcare Providers: https://www.[facility].gov/media/434401/download Fact sheet for Patients: https://www.[facility].gov/media/052497/download Methodology: Isothermal Nucleic Acid Amplification Source .NASOPHARYNGEAL SWAB [place] Comprehensive Metabolic Pane l w/ Reflex to MGon 04-03-2020 Albumin [Mass/Vol] 4.5 g/dL 3.5 - 5.2 g/dL [place] Albumin/Globulin [Mass ratio] 1.7 {ratio} [place] ALP [Catalytic activity/Vol] 78 U/L 35 - 104 U/L [place] ALT [Catalytic activity/Vol] 12 U/L 5 - 33 U/L [place] Anion gap [Moles/Vol] 15 mmol/L 9 - 17 mmol/L [place] AST [Catalytic activity/Vol] 10 U/L <32 [place] Bilirubin Ql (U) 0.60 mg/dL 0.3 - 1.2 mg/dL [place] Bun/Cre Ratio 17 [place], [place] Calcium [Mass/Vol] 9.1 mg/dL 8.6 - 10. 4 mg/dL [place] Chloride [Moles/Vol] 97 mmol/L Low 98 - 10 7 mmol/L [place] CO2 [Moles/Vol] 20 mmol/L 20 - 31 mmol/L [place] Creatinine [Mass/Vol] 0.64 mg/dL 0.5 - 0.9 mg/dL [place] GFR >60 >60 mL/min [place] GFR Non- >60 >60 mL/min [place] Glucose [Mass/Vol] 204 mg/dL High 70 - 99 mg/dL [place] Interpretation and review of laboratory results Abnormal [place] Potassium [Moles/Vol] 3.2 mmol/L Low 3.7 - 5.3 mmol/L [place] Protein [Mass/Vol] 7.1 g/dL 6.4 - 8.3 g/dL [place] Sodium [Moles/Vol] 132 mmol/L Low 135 - 144 mmol/L [facility], [place] Urea nitrogen [Mass/Vol] 11 mg/dL 6 - 20 mg/dL [facility] Drug screen multi urineon Amphetamine Screen, Ur Negative NEGATIVE [facility] Barbiturate Screen, Ur Negative NEGATIVE [facility] Benzodiazepine Screen, Urine Negative NEGATIVE [facility] Buprenorphine Urine Negative NEGATIVE [facility] Cannabinoid Scrn, Ur Positive Abnormal NEGATIVE [facility], [place] Cocaine Metabolite, Urine Negative NEGATIVE [facility] Interpretation and review of laboratory results Abnormal [facility] MDMA, Urine NOT REPORTED NEGATIVE [facility] Methadone Screen, Urine Negative NEGATIVE [facility] Methamphetamine, Urine Positive Abnormal NEGATIVE [facility], [place] Opiates, Urine Negative NEGATIVE [facility] Oxycodone Screen, Ur Negative NEGATIVE [facility], [place] Phencyclidine, Urine Negative NEGATIVE [facility] Propoxyphene, Urine Negative NEGATIVE [facility] Test Information NOT REPORTED [place] Tricyclic Antidepressants, Urine Negative NEGATIVE [place], [place] Comment on above: Drug screen results are to be used for medical purposes only. All positive results are unconfirmed. Testing for employment or legal uses should be sent to a reference laboratory for confirmation. EKG 12 Leadon 04-03-2020 Atrial Rate 106 BPM [facility], [place] P [place] 48 degrees [facility], [place] P-R Interval 128 ms [facility] Q-T Interval 396 ms [facility] QRS Duration 90 ms [facility] QTc Calculation (Bazett) 526 ms [facility], [place] R [place] 53 degrees [facility], [place] T [place] 30 degrees [facility], [place] Ventricular Rate 106 BPM [place], [place] Sinus tachycardia Prolonged QT Abnormal ECG When compared with ECG of 29-MAR-2020 17:56, Nonspecific T wave abnormality no longer evident in Anterior leads QT has lengthened Confirmed by CYRUS TOVAR ([id number]) on 04/03/2020 10:54:10 PM [place], [place] Nuno, Mhpn Incoming E kg Results From [facility] [place] - 04/03/2020 10:54 PM EST Sinus tachycardia Prolonged QT Abnormal ECG When compared with ECG of 29-MAR-2020 17:56, Nonspecific T wave abnormality no longer evident in Anterior leads QT has lengthened Confirmed by CYRUS TOVAR ([id number]) on 04/03/2020 10:54:10 PM [place] Ethanolon 04-03-2020 Ethanol [Mass/Vol] mg/dL <10 mg/dL [place] Ethanol percent <0.010 <0.010 % [place], [place] Magnesiumon 04-03-2020 Magnesium [Mass/Vol] 1.8 mg/dL 1.6 - 2 .6 mg/dL [place] Metabolic Panelon 04-03-2020 GFR/1.73 sq M predicted among non-blacks MDRD (S/P/Bld) [Vol rate/Area] [place] Comment on above: Stage 1: Some [...] body mass. Additional eGFR calculator available at: http://www.[employer].Yorn/multiple_crcl_2012.htm Microscopic Urinalysison Amorphous, UA NOT REPORTED None [place], [place] Bacteria, UA TRACE Abnormal None [place] Casts UA NOT REPORTED /LPF [place] Crystals, UA NOT REPORTED None /HPF [place] Epithelial Cells UA 10 TO 20 [place] Interpretation and review of laboratory results Abnormal [place] Mucus, UA NOT REPORTED None [place] Other Observations UA NOT REPORTED NOT REQ. [place] RBC (U) [#/Vol] 0 TO 2 [place], [place] Renal Epithelial, UA NOT REPORTED 0 /HPF [place], [place] Trichomonas, UA NOT REPORTED None [place], [place] WBC, UA 2 TO 5 [place] Yeast, UA NOT REPORTED None [place] - [place] Otheron 04-03-2020 SARS-CoV-2 [place], [place] , Urineon 0 Beta HCG ( test) Ql (U) Negative NEGATIVE [place] Comment on above: Specimens with hCG l evels near the threshold of the test (25 mIU/mL) may give a negative or indeterminate result. In such cases, another test should be performed with a new specimen in 48-72 hours. If early is suspected clinically in this setting, correlation with quantitative serum b-hCG level is suggested. [facility] has confirmed the use of plasma for this test. This has not been cleared or approved by the U.S. Food and Drug Administration. The FDA has determined that such clearance is not necessary. T4on 04-03-2020 T4, Total 8.9 ug/dL 4.5 - 10.9 ug/dL [place] TSH without Reflexon 020 TSH Qn 2.31 m[IU]/L [place] Urinalysis, reflex to micros copicon 04-03-2020 Bilirubin Urine Negative NEGATIVE [place], [place] Color, UA YELLOW YELLOW [place], [place] Glucose, Ur Negative NEGATIVE [place] Interpretation and review of laboratory results Abnormal [place] Ketones Ql (U) 1+ Abnormal NEGATIVE [place], [place] Leukocyte esterase Test strip Ql (U) TRACE Abnormal NEGATIVE [place] Nitrite, Urine Negative NEGATIVE [place] pH, UA 6.0 [place] Protein (U) [Mass/Vol] Negative NEGATIVE [place], [place] Specific [place], UA 1.025 High [place], [place] Turbidity UA SLIGHTLY CLOUDY Abnormal CLEAR [place], [place] Urinalysis Comments NOT REPORTED [place] Urine Hgb Negative NEGATIVE [place] Urobilinogen, Urine Normal Normal [place] Cult,Urineon 03-30-2020 Cult,Urine Specimen Description .CLEAN CATCH URINE Special Requests NOT REPORTED Culture NO SIGNIFICANT GROWTH Report Status FINAL 03/30/2020 Normal [facility] Comment on above: Performed By: #### U RC #### [facility] [address] [place] [address] Floor Space Allocator: Bipin Villa MD [facility] [address] [place] [address] Floor Space Allocator: Alfredo Bset MD Acetaminophenon 03-29-2020 Acetaminophen [Mass/Vol] ug/mL Low 10-30 [facility] Comment on above: Performed By: #### C DP, CMPX #### [facility] [address] [place] [address] Floor Space Allocator: Alfredo Best MD Acetaminophen levelon 2019 Acetaminophen [Mass/Vol] <5 Low 10 - 30 ug/mL [place] Interpretation and review of laboratory results Abnormal [place] CBC Auto Differentialon 03-04 Basophils (Bld) [#/Vol] 0.04 10*3/uL [place] Basophils/100 WBC (Bld) 0 % 0 - 2 % [place] Differential Type NOT REPORTED [place] Eosinophils (Bld) [#/Vol] 10*3/uL [place] Eosinophils/100 WBC (Bld) 0 % Low 1 - 4 % [place] Erythrocyte distribution width (RBC) [Ratio] 11.7 % Low 11.8 - 14.4 % [place] Hematocrit (Bld) [Volume fraction] 48.5 % High 36.3 - 47.1 % [place] Hemoglobin (Bld) [Mass/Vol] 16.7 g/dL High 11.9 - 15.1 g/dL [place] Immature granulocytes (Bld) [#/Vol] 0.05 10*3/uL [place] Immature granulocytes (Bld) [#/Vol] 0 % 0 [place] Interpretation and review of laboratory results Abnormal [place] Lymphocytes (Bld) [#/Vol] 2.23 10*3/uL [place] Lymphocytes/100 WBC (Bld) 16 % Low 24 - 43 % [place] MCH (RBC) [Entitic mass] 30.3 pg 25.2 - 33.5 pg [place] MCHC (RBC) [Mass/Vol] 34.4 g/dL 28.4 - 34.8 g/dL [place] MCV (RBC) [Entitic vol] 88.0 fL 82.6 - 102.9 fL [place] Monocytes (Bld) [#/Vol] 0.64 10*3/uL [place] Monocytes/100 WBC (Bld) 5 % 3 - 12 % [place] Platelet mean volume (Bld) [Entitic vol] 8.6 fL 8.1 - 13.5 fL [place] Platelets (Bld) [#/Vol] 383 10*3/uL [place] Platelets (Bld) [#/Vol] NOT REPORTED [place] RBC (Bld) [#/Vol] 5.51 10*6/uL High 3.95 - 5.11 m/uL [place], [place] RBC morphology finding Nom (Bld) NOT REPORTED [place] Segmented neutrophils/100 WBC (Bld) 79 % High 36 - 65 % [place] Segs Absolute 10.66 [place] WBC (Bld) [#/Vol] 0.0 10*3/uL 0.0 per 100 WBC [place] WBC (Bld) [#/Vol] 13.6 10*3/uL [place] WBC Morphology NOT REPORTED [place] CBC with Diffon 03-29-2020 Abs. Basophil 0.04 k/uL Normal 0.00-0.20 [facility] Comment on above: Performed By: #### C DP, CMPX #### [facility] [address] [place], [place] [address] Floor Space Allocator: Alfredo Best MD Abs. Eosinophil <0.03 Normal 0.00-0.44 [facility] Comment on above: Performed By: #### C DP, CMPX #### [facility] [address] [place], [place] [address] Floor Space Allocator: Alfredo Best MD Abs.Imm.Granulocyte 0.05 k/uL Normal 0.00-0.30 [facility] Comment on above: Performed By: #### C DP, CMPX #### [facility] [address] [place], [place] [address] Floor Space Allocator: Alfredo Best MD Abs.Neutrophil (Seg) 10.66 k/uL High 1.50-8.10 [facility] Comment on above: Performed By: #### C DP, CMPX #### [facility] [address] [place], [place] [address] Floor Space Allocator: Alfredo Best MD Basophils/100 WBC (Bld) 0 % Normal 0-2 [facility] Comment on above: Performed By: #### C DP, CMPX #### [facility] [address] [place], [place] [address] Floor Space Allocator: Alfredo Best MD Eosinophils/100 WBC (Bld) 0 % Low 1-4 [facility] Comment on above: Performed By: #### C DP, CMPX #### [facility] [address] [place], [facility] Floor Space Allocator: Alfredo Best MD Erythrocyte distribution width (RBC) [Ratio] 11.7 % Low 11.8-14.4 [facility] Comment on above: Performed By: #### C DP, CMPX #### [facility] [address] [place], [facility] Floor Space Allocator: Alfredo Best MD Hematocrit (Bld) [Volume fraction] 48.5 % High 36.3-47.1 [facility] Comment on above: Performed By: #### C DP, CMPX #### [facility] [address] [place], [place] [id number] Floor Space Allocator: Alfredo Best MD Hemoglobin (Bld) [Mass/Vol] 16.7 g/dL High 11.9-15.1 [facility] Comment on above: Performed By: #### C DP, CMPX #### [facility] [address] [place] [address] Floor Space Allocator: Alfredo Best MD Immature granulocytes/100 WBC (Bld) 0 % Normal 0 [facility] Comment on above: Performed By: #### C DP, CMPX #### [facility] [address] [place], [facility] Floor Space Allocator: Alfredo Best MD Lymphocytes (Bld) [#/Vol] 2.23 10*3/uL Normal 1.10-3.70 [facility] Comment on above: Performed By: #### C DP, CMPX #### [facility] [address] [place], [place] [id number] Floor Space Allocator: Alfredo Best MD Lymphocytes/100 WBC (Bld) 16 % Low 24-43 [facility] Comment on above: Performed By: #### C DP, CMPX #### [facility] [address] [place] [address] Floor Space Allocator: Alfredo Best MD MCH (RBC) [Entitic mass] 30.3 pg Normal 25.2-33.5 [facility] Comment on above: Performed By: #### C DP, CMPX #### [facility] [address] [place], [place] [id number] Floor Space Allocator: Alfredo Best MD MCHC (RBC) [Mass/Vol] 34.4 g/dL Normal 28.4-34.8 [facility] Comment on above: Performed By: #### C DP, CMPX #### [facility] [address] [place], [place] [address] Floor Space Allocator: Alfredo Best MD MCV (RBC) [Entitic vol] 88.0 fL Normal 82.6-102.9 [facility] Comment on above: Performed By: #### C DP, CMPX #### [facility] [address] [place], [place] [address] Floor Space Allocator: Alfredo Best MD Monocytes (Bld) [#/Vol] 0.64 10*3/uL Normal 0.10-1.20 [facility] Comment on above: Performed By: #### C DP, CMPX #### [facility] [address] [place] [address] Floor Space Allocator: Alfredo Best MD Monocytes/100 WBC (Bld) 5 % Normal 3-12 [facility] Comment on above: Performed By: #### C DP, CMPX #### [facility] [address] [place], [place] [address] Floor Space Allocator: Alfredo Best MD Neutrophil (Seg) 79 % High 36-65 [facility] Comment on above: Performed By: #### C DP, CMPX #### [facility] [address] [place], [place] [address] Floor Space Allocator: Alfredo Best MD NRBC Automated 0.0 per 100 WBC Normal 0.0 [facility] Comment on above: Performed By: #### C DP, CMPX #### [facility] [address] [place], [place] [address] Floor Space Allocator: Alfredo Best MD Platelet mean volume (Bld) [Entitic vol] 8.6 fL Normal 8.1-13.5 [facility] Comment on above: Performed By: #### C DP, CMPX #### [facility] [address] [place] [address] Floor Space Allocator: Alfredo Best MD Platelets (Bld) [#/Vol] 383 10*3/uL Normal 138-453 [facility] Comment on above: Performed By: #### C DP, CMPX #### [facility] [address] [place], [place] [id number] Floor Space Allocator: Alfredo Best MD RBC (Bld) [#/Vol] 5.51 10*6/uL High 3.95-5.11 [facility] Comment on above: Performed By: #### C DP, CMPX #### [facility] [address] [place], [place] [id number] Floor Space Allocator: Alfredo Best MD WBC (Bld) [#/Vol] 13.6 10*3/uL High 3.5-11.3 [facility] Comment on above: Performed By: #### C DP, CMPX #### [facility] [address] [place] [address] Floor Space Allocator: Alfredo Best MD Auto Diff Performed NOT REPORTED Normal [facility] Comment on above: Performed By: #### C DP, CMPX #### [facility] [address] [place], [place] [phone] Floor Space Allocator: Alfredo Best MD Platelet Estimate NOT REPORTED Normal [facility] Comment on above: Performed By: #### C DP, CMPX #### [facility] [address] [place] [address] Floor Space Allocator: Alfredo Best MD RBC morphology finding Nom (Bld) NOT REPORTED Normal [facility] Comment on above: Performed By: #### C DP, CMPX #### [facility] [address] [place], [place] [id number] Floor Space Allocator: Alfredo Best MD WBC Morphology NOT REPORTED Normal [facility] Comment on above: Performed By: #### C DP, CMPX #### [facility] [address] [place] [address] Floor Space Allocator: Alfredo Best MD COVID-19, PCRon 03-29-2020 SARS-CoV-2, Rapid Not Detected Not Detected [place] Comment on above: Rapid NAAT: The [...] management decisions. Fact sheet for Healthcare Providers: https://www.fda.gov/media/877776/download Fact sheet for Patients: https://www.fda.gov/media/361554/download Methodology: Isothermal Nucleic Acid Amplification Source .NASOPHARYNGEAL SWAB [place] Comp Metabolic Pr/rfx MGon 1 (cont.) Normal [facility] Comment on above: Result Comment: Aver age GFR for 30-39 years old: 107 mL/min/1.73sq m Chronic Kidney Disease: <60 mL/min/1.73sq m Kidney failure: <15 mL/min/1.73sq m eGFR calculated using average adult body mass. Additional eGFR calculator available at: http://www.Bestowed.Yorn/multiple_crcl_2012.htm Performed By: #### C PHILLY CMPX #### [facility] [address] [place] [address] Floor Space Allocator: Alfredo Best MD Albumin [Mass/Vol] 5.1 g/dL Normal 3.5-5.2 [facility] Comment on above: Performed By: #### C DP, CMPX #### [facility] [address] [place], [place] [id number] Floor Space Allocator: Alfredo Best MD Albumin/Glob Ratio 1.6 Normal 1.0-2.5 [facility] Comment on above: Performed By: #### C DP, CMPX #### [facility] [address] [place], [place] [address] Floor Space Allocator: Alfredo Best MD Alkaline Phos 79 U/L Normal 35-104 [facility] Comment on above: Performed By: #### C DP, CMPX #### [facility] [address] [place], [place] [id number] Floor Space Allocator: Alfredo Best MD ALT [Catalytic activity/Vol] 14 U/L Normal 5-33 [facility] Comment on above: Performed By: #### C DP, CMPX #### [facility] [address] [place], [place] [address] Floor Space Allocator: Alfredo Best MD Anion gap [Moles/Vol] 14 mmol/L Normal 9-17 [facility] Comment on above: Performed By: #### C DP, CMPX #### [facility] [address] [place], [place] [phone] Floor Space Allocator: Alfredo Best MD AST [Catalytic activity/Vol] 10 U/L Normal <32 [facility] Comment on above: Performed By: #### C DP, CMPX #### [facility] [address] [place], [place] [id number] Floor Space Allocator: Alfredo Bets MD Bilirubin [Mass/Vol] 0.49 mg/dL Normal 0.3-1.2 [facility] Comment on above: Performed By: #### C DP, CMPX #### [facility] [address] [place], [place] [phone] Floor Space Allocator: Alfredo Best MD BUN/CRE Ratio 15 Normal 9-20 [facility] Comment on above: Performed By: #### C DP, CMPX #### [facility] [address] [place], [place] [phone] Floor Space Allocator: Alfredo Best MD Calcium [Mass/Vol] 10.1 mg/dL Normal 8.6-10.4 [facility] Comment on above: Performed By: #### C DP, CMPX #### [facility] [address] [place], [place] [id number] Floor Space Allocator: Alfredo Best MD Chloride [Moles/Vol] 101 mmol/L Normal 98-107 [facility] Comment on above: Performed By: #### C DP, CMPX #### [facility] [address] [place], [place] [address] Floor Space Allocator: Alfredo Best MD CO2 [Moles/Vol] 20 mmol/L Normal 20-31 [facility] Comment on above: Performed By: #### C DP, CMPX #### [facility] [address] [place], [place] [id number] Floor Space Allocator: Alfredo Best MD Creatinine [Mass/Vol] 0.59 mg/dL Normal 0.50-0.90 [facility] Comment on above: Performed By: #### C DP, CMPX #### [facility] [address] [place], [place] [phone] Floor Space Allocator: Alfredo Best MD GFR, Amer >60 Normal >60 [facility] Comment on above: Performed By: #### C DP, CMPX #### [facility] [address] [place], [place] [address] Floor Space Allocator: Alfredo Best MD GFR,non Amer >60 Normal >60 [facility] Comment on above: Performed By: #### C DP, CMPX #### [facility] [address] [place] [address] Floor Space Allocator: Alfredo Best MD Glucose [Mass/Vol] 129 mg/dL High 70-99 [facility] Comment on above: Performed By: #### C DP, CMPX #### [facility] [address] [place], [place] [phone] Floor Space Allocator: Alfredo Best MD Potassium [Moles/Vol] 3.6 mmol/L Low 3.7-5.3 [facility] Comment on above: Performed By: #### C DP, CMPX #### [facility] [address] [place], [place] [phone] Floor Space Allocator: Alfredo Best MD Protein [Mass/Vol] 8.2 g/dL Normal 6.4-8.3 [facility] Comment on above: Performed By: #### C DP, CMPX #### [facility] [address] [place], [place] [phone] Floor Space Allocator: Alfredo Best MD Sodium [Moles/Vol] 135 mmol/L Normal 135-144 [facility] Comment on above: Performed By: #### C DP, CMPX #### [facility] [address] [place], [place] [id number] Floor Space Allocator: Alfredo Best MD Staging: Normal [facility] Comment on above: Result Comment: Stag e 1: Some kidney damage normal GFR Stage 2: Mild kidney damage GFR 60-89 Stage 3: Moderate kidney damage GFR 30-59 Stage 4: Severe kidney damage GFR 15-29 Stage 5: Severe kidney damage GFR <15 ESRD - chronic treatment by dialysis or transplant Performed By: #### C DP, CMPX #### [facility] [address] [place], [place] [phone] Floor Space Allocator: Alfredo Best MD Urea nitrogen [Mass/Vol] 9 mg/dL Normal 6-20 [facility] Comment on above: Performed By: #### C DP, CMPX #### [facility] [address] [place] [address] Floor Space Allocator: Alfredo Best MD Comprehensive Metabolic Pane l w/ Reflex to MGon 03-29-2020 Albumin [Mass/Vol] 5.1 g/dL 3.5 - 5.2 g/dL [place] Albumin/Globulin [Mass ratio] 1.6 {ratio} [place] ALP [Catalytic activity/Vol] 79 U/L 35 - 104 U/L [place] ALT [Catalytic activity/Vol] 14 U/L 5 - 33 U/L [place] Anion gap [Moles/Vol] 14 mmol/L 9 - 17 mmol/L [place] [place] AST [Catalytic activity/Vol] 10 U/L <32 [place] Bilirubin Ql (U) 0.49 mg/dL 0.3 - 1.2 mg/dL [place] Bun/Cre Ratio 15 [place] Calcium [Mass/Vol] 10.1 mg/dL 8.6 - 10. 4 mg/dL [place] Chloride [Moles/Vol] 101 mmol/L 98 - 10 7 mmol/L [place] CO2 [Moles/Vol] 20 mmol/L 20 - 31 mmol/L [place] Creatinine [Mass/Vol] 0.59 mg/dL 0.5 - 0.9 mg/dL [place] GFR >60 >60 mL/min [place] GFR Non- >60 >60 mL/min [place] Glucose [Mass/Vol] 129 mg/dL High 70 - 99 mg/dL [place] Interpretation and review of laboratory results Abnormal [place] Potassium [Moles/Vol] 3.6 mmol/L Low 3.7 - 5.3 mmol/L [place] Protein [Mass/Vol] 8.2 g/dL 6.4 - 8.3 g/dL [place] Sodium [Moles/Vol] 135 mmol/L 135 - 144 mmol/L [place] Urea nitrogen [Mass/Vol] 9 mg/dL 6 - 20 mg/dL [place] Drug Scr, Abuse, Uron 2019 Amphetamine(s),Ur Positive Abnormal NEG [facility] Comment on above: Performed By: #### D AU #### [facility] [address] [place], [facility] Floor Space Allocator: Alfredo Best MD Barbiturate(s),Ur Negative Normal NEG [facility] Comment on above: Performed By: #### D AU #### [facility] [address] [place], [facility] Floor Space Allocator: Alfredo Best MD Benzodiazepine(s) Positive Abnormal NEG [facility] Comment on above: Performed By: #### D AU #### [facility] [address] [place] [id number] Floor Space Allocator: Alfredo Best MD Buprenorphrine, Ur Negative Normal NEG [facility] Comment on above: Performed By: #### D AU #### [facility] [address] [place] [address] Floor Space Allocator: Alfredo Best MD Cannabinoid(s),Ur Positive Abnormal NEG [facility] Comment on above: Performed By: #### D AU #### [address] [place] [id number] Floor Space Allocator: Alfredo Best MD Cocaine Metabolite Negative Normal [facility] Comment on above: Performed By: #### D AU #### [facility] [address] [place], [facility] Floor Space Allocator: Alfredo Best MD Methadone Ql (U) Negative Normal NEG [facility] Comment on above: Performed By: #### D AU #### [facility] [address] [place], [place] [id number] Floor Space Allocator: Alfredo Best MD Methamphetamine, Ur Positive Abnormal NEG [facility] Comment on above: Performed By: #### D AU #### [facility] [address] [place] [address] Floor Space Allocator: Alfredo Best MD Opiate(s), Ur Negative Normal NEG [facility] Comment on above: Performed By: #### D AU #### [facility] [address] [place] [address] Floor Space Allocator: Alfredo Best MD Oxycodone, Urine Negative Normal NEG [facility] Comment on above: Performed By: #### D AU #### [facility] [address] [place] [address] Floor Space Allocator: Alfredo Best MD Phencyclidine, Ur Negative Normal NEG [facility] Comment on above: Performed By: #### D AU #### [facility] [address] [place], [place] [id number] Floor Space Allocator: Alfredo Best MD Propoxyphene,Urine Negative Normal NEG [facility] Comment on above: Performed By: #### D AU #### [facility] [address] [place] [address] Floor Space Allocator: Alfredo Best MD Tricyclic antidepressants Screen Ql (U) Negative [facility] Comment on above: Result Comment: Drug screen results are to be used for medical purposes only. All positive results are unconfirmed. Testing for employment or legal uses should be sent to a reference laboratory for confirmation. Performed By: #### D AU #### [facility] [address] [place] [address] Floor Space Allocator: Alfredo Best MD Interpretive Info NOT REPORTED [facility] Comment on above: Performed By: #### D AU #### [facility] [address] [place], [place] [phone] Floor Space Allocator: Alfredo Best MD MDMA, Urine NOT REPORTED Normal NEG [facility] Comment on above: Performed By: #### D AU #### [facility] [address] [place], [place] [phone] Floor Space Allocator: Alfredo Best MD Drug screen multi urineon Amphetamine Screen, Ur Positive Abnormal NEGATIVE [facility] [place], [place] Barbiturate Screen, Ur Negative NEGATIVE [facility] Benzodiazepine Screen, Urine Positive Abnormal NEGATIVE [facility] Buprenorphine Urine Negative NEGATIVE [facility] Cannabinoid Scrn, Ur Positive Abnormal NEGATIVE [facility], [place] Cocaine Metabolite, Urine Negative NEGATIVE [facility], [place] Interpretation and review of laboratory results Abnormal [facility] [place], [place] MDMA, Urine NOT REPORTED NEGATIVE [facility]- [place], [place] Methadone Screen, Urine Negative NEGATIVE [facility], [place] Methamphetamine, Urine Positive Abnormal NEGATIVE [facility]- [place] Opiates, Urine Negative NEGATIVE [facility]- [place] Oxycodone Screen, Ur Negative NEGATIVE [facility], [place] Phencyclidine, Urine Negative NEGATIVE [facility], [place] Propoxyphene, Urine Negative NEGATIVE [facility], [place] Test Information NOT REPORTED [facility] Tricyclic Antidepressants, Urine Negative NEGATIVE [facility], [place] Comment on above: Drug screen results are to be used for medical purposes only. All positive results are unconfirmed. Testing for employment or legal uses should be sent to a reference laboratory for confirmation. EKG 12 Leadon 03-29-2020 Atrial Rate 95 BPM [facility], [place] P [place] 35 degrees [facility], [place] P-R Interval 136 ms [facility] Q-T Interval 370 ms [facility] QRS Duration 80 ms [facility], [place] QTc Calculation (Bazett) 464 ms [facility], [place] R [place] 45 degrees [facility], [place] T [place] 40 degrees [facility], [place] Ventricular Rate 95 BPM [facility], [place] Nuno, Mhpn Incoming E kg Results From [facility] - 03/29/2020 9:25 PM EDT Normal sinus rhythm Normal ECG When compared with ECG of 01-APR-2012 19:31, Nonspecific T wave abnormality now evident in Anterior leads Confirmed by CYRUS TOVAR ([id number]) on 03/29/2020 9:25:21 PM [facility], [place] Normal sinus rhythm Normal ECG When compared with ECG of 01-APR-2012 19:31, Nonspecific T wave abnormality now evident in Anterior leads Confirmed by CYRUS TOVAR ([id number]) on 03/29/2020 9:25:21 PM [place] HCG, Quanton 03-29-2020 HCG, Quant <1 Normal <5 [facility] Comment on above: Result Comment: Non-preg premeno <=5 Postmeno <=8 Male <=3 If HCG results do not concur with clinical observations, additional testing to confirm results is recommended. Elevated results not associated with may be found in patients with other diseases such as tumors of the germ cells (testis, ovaries, etc.), bladder, pancreas, stomach, lungs, and liver. Performed By: #### U CHICHI HSU #### [facility] [address] [place] [address] Floor Space Allocator: Alfredo Best MD HCG, Quantitative, on 03-29-2020 hCG Quant <1 <5 IU/L [place] Comment on above: Non-preg premeno <=5 [...] predicted among non-blacks MDRD (S/P/Bld) [Vol rate/Area] [place] Comment on above: Stage 1: Some [...] body mass. Additional eGFR calculator available at: http://www.Bestowed.Yorn/multiple_crcl_2012.htm Microscopic Urinalysison Amorphous, UA TRACE Abnormal None [place], [place] Bacteria, UA 1+ Abnormal None [place] Casts UA NOT REPORTED /LPF [place] Crystals, UA NOT REPORTED None /HPF [place], [place] Epithelial Cells UA 10 TO 20 [place] Interpretation and review of laboratory results Abnormal [place] Mucus, UA NOT REPORTED None [place] Other Observations UA NOT REPORTED NOT REQ. [place] RBC (U) [#/Vol] [address] [facility] [place] [place] Renal Epithelial, UA NOT REPORTED 0 /HPF [place] Trichomonas, UA NOT REPORTED None [place], [place] WBC, UA 5 TO 10 [place] Yeast, UA NOT REPORTED None [place], [place] - [place] Otheron 03-29-2020 SARS-CoV-2 [place] [id number] 03-29-2020 SARS-CoV-2 (COVID-19) RNA HARJINDER+probe Ql (Unsp spec) Normal [facility] Comment on above: Performed By: #### C OVID #### [facility] [address] [place] [address] [place] [address] Floor Space Allocator: Alfredo Best MD SARS-CoV-2 (COVID-19) RNA HARJINDER+probe Ql (Unsp spec) Not detected Normal NOTDET [facility] Comment on above: Result Comment: Rapid NAAT: [...] management decisions. Fact sheet for Healthcare Providers: https://www.fda.gov/media/990724/download Fact sheet for Patients: https://www.fda.gov/media/578169/download Methodology: Isothermal Nucleic Acid Amplification Performed By: #### C OVID #### [facility] [address] [place] [address] Floor Space Allocator: Alfredo Best MD SARS-CoV-2 (COVID-19) RNA HARJINDER+probe Ql (Unsp spec) Normal [facility] Comment on above: Performed By: #### C OVID #### [address] [place], [place] [phone] Floor Space Allocator: Alfredo Best MD SARS-CoV-2 (COVID-19) RNA HARJINDER+probe Ql (Unsp spec) .NASOPHARYNGEAL SWAB Normal [facility] Comment on above: Performed By: #### C OVID #### [address] [place], [place] [phone] Floor Space Allocator: Alfredo Best MD Salicylateon 1793 Salicylate <1 Low 3-10 [facility] Comment on above: Performed By: #### U MICAO, UA #### [address] [place], [place] [phone] Floor Space Allocator: Alfredo Best MD Interpretation and review of laboratory results Abnormal [place] Salicylate Lvl <1 Low 3 - 10 mg/dL [place] Urinalysis, Routineon 3716 Acetoacetic Acid,Ur 2+ Abnormal NEG [facility] Comment on above: Performed By: #### U MICAO, UA #### [facility] [address] [place], [place] [phone] Floor Space Allocator: Alfredo Best MD Bilirubin, SemiQt,Ur Negative Normal NEG [facility] Comment on above: Performed By: #### U MICAO, UA #### [facility] [address] [place] [address] Floor Space Allocator: Alfredo Best MD Color (U) YELLOW Normal YEL [facility] Comment on above: Performed By: #### U MICAO, UA #### [facility] [address] [place] [address] Floor Space Allocator: Alfredo Best MD Glucose Ql (U) Negative Normal NEG [facility] in Hospital Comment on above: Performed By: #### U MICAO, UA #### [facility] [address] [place], [place] [phone] Floor Space Allocator: Alfredo Best MD Hemoglobin, Ur TRACE Abnormal NEG [facility] in [facility] Comment on above: Performed By: #### U MICAO, UA #### [facility] [address] [place], [place] [phone] Floor Space Allocator: Alfredo Best MD Leukocyte esterase Test strip Ql (U) SMALL Abnormal NEG [facility] Comment on above: Performed By: #### U MICAO, UA #### [facility] [address] [place] [address] [place] [address] Floor Space Allocator: Alfredo Best MD Nitrite,Ur Negative Normal [facility] Comment on above: Performed By: #### U MICAO, UA #### [facility] [address] [place], [facility] Floor Space Allocator: Alfredo Best MD PH,Ur 6.5 Normal 5.0-9.0 [facility] Comment on above: Performed By: #### U MICAO, UA #### [facility] [address] [place], [place] [phone] Floor Space Allocator: Alfredo Best MD Protein Ql (U) Negative Normal NEG [facility] Comment on above: Performed By: #### U MICAO, UA #### [facility] [address] [place], [place] [phone] Floor Space Allocator: Alfredo Best MD Spec. [place],Ur 1.010 Normal 1.010-1.02 0 [facility] Comment on above: Performed By: #### U MICAO, UA #### [facility] [address] [place], [place] [id number] Floor Space Allocator: Alfredo Best MD Turbidity CLEAR Normal CLEAR [facility] Comment on above: Performed By: #### U MICAO, UA #### [facility] [address] [place], [place] [phone] Floor Space Allocator: Alfredo Best MD Urobilinogen,Ur Normal Normal NORM [facility] Comment on above: Performed By: #### U MICAO, UA #### [facility] [address] [place], [place] [phone] Floor Space Allocator: Alfredo Best MD Comment NOT REPORTED Normal [facility] Comment on above: Performed By: #### U MICAO, UA #### [facility] [address] [place], [place] [id number] Floor Space Allocator: Alfredo Best MD Urinalysis, reflex to micros copicon 03-29-2020 Bilirubin Urine Negative NEGATIVE [facility] [place] Color, UA YELLOW YELLOW [facility] [place], [place] Glucose, Ur Negative NEGATIVE [facility] [place] Interpretation and review of laboratory results Abnormal [facility], [place] Ketones Ql (U) 2+ Abnormal NEGATIVE [facility]- [place], [place] Leukocyte esterase Test strip Ql (U) SMALL Abnormal NEGATIVE [facility] [place] Nitrite, Urine Negative NEGATIVE [facility]- [place] pH, UA 6.5 [facility] [place], [place] Protein (U) [Mass/Vol] Negative NEGATIVE [facility]- [place] Specific [place], UA 1.010 [facility]- [place] Turbidity UA CLEAR CLEAR [facility] - [place] Urinalysis Comments NOT REPORTED [facility]- [place] Urine Hgb TRACE Abnormal NEGATIVE [facility] [place] Urobilinogen, Urine Normal Normal [facility] [place] Urinalysis,Microon 0 ----- Normal [facility] Comment on above: Performed By: #### U MICAO, UA #### [facility] [address] [place] [address] Floor Space Allocator: Alfredo Best MD Amorphous sediment LM Ql (Urine sed) TRACE Abnormal [facility] Comment on above: Performed By: #### U MICAO, UA #### [facility] [address] [place], [place] 1277483 Floor Space Allocator: Alfredo Best MD Bacteria 1+ Abnormal [facility] Comment on above: Performed By: #### U MICAO, UA #### [facility] [address] [place], [place] [phone] Floor Space Allocator: Alfredo Best MD Epithelial cells LM Ql (Urine sed) 10 TO 20 Normal 0-25 [facility] Comment on above: Performed By: #### U MICAO, UA #### [facility] [address] [place], [place] [phone] Floor Space Allocator: Alfredo Best MD Urine RBC's 2 TO 5 Normal 0-2 [facility] Comment on above: Performed By: #### U MICAO, UA #### [facility] [address] [place], [place] [phone] Floor Space Allocator: Alfredo Best MD Urine WBC's 5 TO 10 Normal 0-5 [facility] Comment on above: Performed By: #### U MICAO, UA #### [facility] [address] [place], [place] [phone] Floor Space Allocator: Alfredo Best MD Casts NOT REPORTED Normal [facility] Comment on above: Performed By: #### U MICAO, UA #### [facility] [address] [place], [place] [phone] Floor Space Allocator: Alfredo Best MD Crystals LM Nom (Urine sed) NOT REPORTED Normal [facility] Comment on above: Performed By: #### U MICAO, UA #### [facility] [address] [place], [place] [phone] Floor Space Allocator: Alfredo Best MD Epithelial, Renal NOT REPORTED Normal 0 [facility] Comment on above: Performed By: #### U MICAO, UA #### [facility] [address] [place], [facility] Floor Space Allocator: Alfredo Best MD Mucus Strands NOT REPORTED Normal NONE [facility] Comment on above: Performed By: #### U MICAO, UA #### [facility] [address] [place] [phone] Floor Space Allocator: Alfredo Best MD Other Observations NOT REPORTED Normal NREQ [facility] Comment on above: Performed By: #### U MICAO, UA #### [facility] [address] [place], [facility] Floor Space Allocator: Alfredo Best MD Trichomonas NOT REPORTED Normal NONE [facility] Comment on above: Performed By: #### U MICAO, UA #### [facility] [address] [place] [phone] Floor Space Allocator: Alfredo Best MD Yeast NOT REPORTED Normal [facility] Comment on above: Performed By: #### U MICAO, UA #### [facility] [address] [place], [facility] Floor Space Allocator: Alfredo Best MD XR CHEST PORTABLEon 03-29-20 XR CHEST PORTABLE EXAMINATION: ONE XRAY VIEW OF THE CHEST 03/29/2020 5:23 pm COMPARISON: October 21, 2018 HISTORY: ORDERING SYSTEM PROVIDED HISTORY: medical clearance TECHNOLOGIST PROVIDED HISTORY: medical clearance FINDINGS: Lungs are clear. No cardiomegaly. No pulmonary edema. IMPRESSION: Negative portable chest. Interpreted by: Chandan Marquez MD Signed by: Chandan Marquez MD 03/29/20 Final result Normal [facility] EXAMINATION: ONE XRA Y VIEW OF THE CHEST 03/29/2020 5:23 pm COMPARISON: October 21, 2018 HISTORY: ORDERING SYSTEM PROVIDED HISTORY: medical clearance TECHNOLOGIST PROVIDED HISTORY: medical clearance FINDINGS: Lungs are clear. No cardiomegaly. No pulmonary edema. [place], [place]hpn Incoming Radiant Results From [facility] - 03/29/2020 5:35 PM EDT EXAMINATION: ONE XRAY VIEW OF THE CHEST 03/29/2020 5:23 pm COMPARISON: October 21, 2018 HISTORY: ORDERING SYSTEM PROVIDED HISTORY: medical clearance TECHNOLOGIST PROVIDED HISTORY: medical clearance FINDINGS: Lungs are clear. No cardiomegaly. No pulmonary edema. IMPRESSION: Negative portable chest. [place] Negative portable chest. [place] CBC Auto Differentialon 02-02 Basophils (Bld) [#/Vol] 0.05 10*3/uL [place] Basophils/100 WBC (Bld) 1 % 0 - 2 % [place] Differential Type NOT REPORTED [place] Eosinophils (Bld) [#/Vol] 10*3/uL [place] Eosinophils/100 WBC (Bld) 0 % Low 1 - 4 % [place] Erythrocyte distribution width (RBC) [Ratio] 11.9 % 11.8 - 14.4 % [place] Hematocrit (Bld) [Volume fraction] 44.3 % 36.3 - 47.1 % [place] Hemoglobin (Bld) [Mass/Vol] 15.4 g/dL High 11.9 - 15.1 g/dL [place] Immature granulocytes (Bld) [#/Vol] 0 % 0 [place] Immature granulocytes (Bld) [#/Vol] 10*3/uL [place] Interpretation and review of laboratory results Abnormal [place] Lymphocytes (Bld) [#/Vol] 1.73 10*3/uL [place] Lymphocytes/100 WBC (Bld) 20 % Low 24 - 43 % [place] MCH (RBC) [Entitic mass] 31.2 pg 25.2 - 33.5 pg [place] MCHC (RBC) [Mass/Vol] 34.8 g/dL 28.4 - 34.8 g/dL [place] MCV (RBC) [Entitic vol] 89.9 fL 82.6 - 102.9 fL [place] Monocytes (Bld) [#/Vol] 0.43 10*3/uL [place] Monocytes/100 WBC (Bld) 5 % 3 - 12 % [place] Platelet mean volume (Bld) [Entitic vol] 8.8 fL 8.1 - 13.5 fL [place] Platelets (Bld) [#/Vol] 294 10*3/uL [place] Platelets (Bld) [#/Vol] NOT REPORTED [place] RBC (Bld) [#/Vol] 4.93 10*6/uL 3.95 - 5.11 m/uL [place] RBC morphology finding Nom (Bld) NOT REPORTED [place] Segmented neutrophils/100 WBC (Bld) 74 % High 36 - 65 % [place] Segs Absolute 6.41 [place], [place] WBC (Bld) [#/Vol] 8.6 10*3/uL [place] WBC (Bld) [#/Vol] 0.0 10*3/uL 0.0 per 100 WBC [place] WBC Morphology NOT REPORTED [place], [place] CBC with Diffon 02-23-2020 Abs. Basophil 0.05 k/uL Normal 0.00-0.20 [facility] Comment on above: Performed By: #### C DP, HCG, CMPX #### [facility] [address] [place] [address] Floor Space Allocator: Alfredo Best MD Abs. Eosinophil <0.03 Normal 0.00-0.44 [facility] Comment on above: Performed By: #### C DP, HCG, CMPX #### [facility] [address] [place] [address] Floor Space Allocator: Alfredo Best MD Abs.Imm.Granulocyte <0.03 Normal 0.00-0.30 [facility] Comment on above: Performed By: #### C DP, HCG, CMPX #### [facility] [address] [place], [facility] Floor Space Allocator: Alfredo Best MD Abs.Neutrophil (Seg) 6.41 k/uL Normal 1.50-8.10 [facility] Comment on above: Performed By: #### C DP, HCG, CMPX #### [facility] [address] [place], [facility] Floor Space Allocator: Alfredo Best MD Basophils/100 WBC (Bld) 1 % Normal 0-2 [facility] Comment on above: Performed By: #### C DP, HCG, CMPX #### [facility] [address] [place], [facility] Floor Space Allocator: Alfredo Best MD Eosinophils/100 WBC (Bld) 0 % Low 1-4 [facility] Comment on above: Performed By: #### C DP, HCG, CMPX #### [facility] [address] [place], [facility] Floor Space Allocator: Alfredo Best MD Erythrocyte distribution width (RBC) [Ratio] 11.9 % Normal 11.8-14.4 [facility] Comment on above: Performed By: #### C DP, HCG, CMPX #### [facility] [address] [place], [place] [address] Floor Space Allocator: Alfredo Best MD Hematocrit (Bld) [Volume fraction] 44.3 % Normal 36.3-47.1 [facility] Comment on above: Performed By: #### C DP, HCG, CMPX #### [facility] [address] [place], [place] [phone] Floor Space Allocator: Alfredo Best MD Hemoglobin (Bld) [Mass/Vol] 15.4 g/dL High 11.9-15.1 [facility] Comment on above: Performed By: #### C DP, HCG, CMPX #### [facility] [address] [place], [place] [address] Floor Space Allocator: Alfredo Best MD Immature granulocytes/100 WBC (Bld) 0 % Normal 0 [facility] Comment on above: Performed By: #### C DP, HCG, CMPX #### [facility] [address] [place], [place] [address] Floor Space Allocator: Alfredo Best MD Lymphocytes (Bld) [#/Vol] 1.73 10*3/uL Normal 1.10-3.70 [facility] Comment on above: Performed By: #### C DP, HCG, CMPX #### [facility] [address] [place], [place] [address] Floor Space Allocator: Alfredo Best MD Lymphocytes/100 WBC (Bld) 20 % Low 24-43 [facility] Comment on above: Performed By: #### C DP, HCG, CMPX #### [facility] [address] [place], [facility] Floor Space Allocator: Alfredo Best MD MCH (RBC) [Entitic mass] 31.2 pg Normal 25.2-33.5 [facility] Comment on above: Performed By: #### C DP, HCG, CMPX #### [address] [place], [place] [address] Floor Space Allocator: Alfredo Best MD MCHC (RBC) [Mass/Vol] 34.8 g/dL Normal 28.4-34.8 [facility] Comment on above: Performed By: #### C DP, HCG, CMPX #### [facility] [address] [place] [facility] Floor Space Allocator: Alfredo Best MD MCV (RBC) [Entitic vol] 89.9 fL Normal 82.6-102.9 [facility] Comment on above: Performed By: #### C DP, HCG, CMPX #### [facility] [address] [place] [address] Floor Space Allocator: Alfredo Best MD Monocytes (Bld) [#/Vol] 0.43 10*3/uL Normal 0.10-1.20 [facility] Comment on above: Performed By: #### C DP, HCG, CMPX #### [facility] [address] [place], [place] [address] Floor Space Allocator: Alfredo Best MD Monocytes/100 WBC (Bld) 5 % Normal 3-12 [facility] Comment on above: Performed By: #### C DP, HCG, CMPX #### [facility] [address] [place], [place] [address] Floor Space Allocator: Alfredo Best MD Neutrophil (Seg) 74 % High 36-65 [facility] Comment on above: Performed By: #### C DP, HCG, CMPX #### [facility] [address] [place], [place] [address] Floor Space Allocator: Alfredo Best MD NRBC Automated 0.0 per 100 WBC Normal 0.0 [facility] Comment on above: Performed By: #### C DP, HCG, CMPX #### [address] [place], [place] [address] Floor Space Allocator: Alfredo Best MD Platelet mean volume (Bld) [Entitic vol] 8.8 fL Normal 8.1-13.5 [facility] Comment on above: Performed By: #### C DP, HCG, CMPX #### [facility] [address] [place], [facility] Floor Space Allocator: Alfredo Best MD Platelets (Bld) [#/Vol] 294 10*3/uL Normal 138-453 [facility] Comment on above: Performed By: #### C DP, HCG, CMPX #### [facility] [address] [place], [facility] Floor Space Allocator: Alfredo Best MD RBC (Bld) [#/Vol] 4.93 10*6/uL Normal 3.95-5.11 [facility] Comment on above: Performed By: #### C DP, HCG, CMPX #### [facility] [address] [place], [place] [id number] Floor Space Allocator: Alfredo Best MD WBC (Bld) [#/Vol] 8.6 10*3/uL Normal 3.5-11.3 [facility] Comment on above: Performed By: #### C DP, HCG, CMPX #### [address] [place] [id number] Floor Space Allocator: Alfredo Best MD Auto Diff Performed NOT REPORTED Normal [facility] Comment on above: Performed By: #### C DP, HCG, CMPX #### [address] [place], [facility] Floor Space Allocator: Alfredo Best MD Platelet Estimate NOT REPORTED Normal [facility] Comment on above: Performed By: #### C DP, HCG, CMPX #### [address] [place], [facility] Floor Space Allocator: Alfredo Best MD RBC morphology finding Nom (d) NOT REPORTED Normal [facility] Comment on above: Performed By: #### C DP, HCG, CMPX #### [address] [place], [facility] Floor Space Allocator: Alfredo Best MD WBC Morphology NOT REPORTED Normal [facility] Comment on above: Performed By: #### C DP, HCG, CMPX #### [address] [place] [id number] Floor Space Allocator: Alfredo Best MD CT ABDOMEN PELVIS W [...] Boubacar Phan MD 02/23/20 Final result Normal [facility] Comp Metabolic Pr/rfx MGon 0 02-23-2020 (cont.) Normal [facility] Comment on above: Result Comment: Aver age GFR for 30-39 years old: 107 mL/min/1.73sq m Chronic Kidney Disease: <60 mL/min/1.73sq m Kidney failure: <15 mL/min/1.73sq m eGFR calculated using average adult body mass. Additional eGFR calculator available at: http://www.Bestowed.Yorn/multiple_crcl_2012.htm Performed By: #### U CHICHI HSU #### [facility] [address] [place], [place] [id number] Floor Space Allocator: Alfredo Best MD Albumin [Mass/Vol] 4.4 g/dL Normal 3.5-5.2 [facility] Comment on above: Performed By: #### U MICAO, UA #### [facility] [address] [place], [place] [id number] Floor Space Allocator: Alfredo Best MD Albumin/Glob Ratio 1.5 Normal 1.0-2.5 [facility] Comment on above: Performed By: #### U NADEGEO, UA #### [facility] [address] [place], [place] [id number] Floor Space Allocator: Alfredo Best MD Alkaline Phos 71 U/L Normal 35-104 [facility] Comment on above: Performed By: #### U SHADI, UA #### [facility] [address] [place], [place] [phone] Floor Space Allocator: Alfredo Best MD ALT [Catalytic activity/Vol] 12 U/L Normal 5-33 [facility] Comment on above: Performed By: #### U SHADI, UA #### [facility] [address] [place], [place] [id number] Floor Space Allocator: Alfredo Best MD Anion gap [Moles/Vol] 12 mmol/L Normal 9-17 [facility] Comment on above: Performed By: #### U NADEGEO, UA #### [facility] [address] [place], [place] [phone] Floor Space Allocator: Alfredo Best MD AST [Catalytic activity/Vol] 15 U/L Normal <32 [facility] Comment on above: Performed By: #### U NADEGEO, UA #### [facility] [address] [place], [place] [id number] Floor Space Allocator: Alfredo Best MD Bilirubin [Mass/Vol] 0.31 mg/dL Normal 0.3-1.2 [facility] Comment on above: Performed By: #### U MICAO, UA #### [facility] [address] [place] [address] Floor Space Allocator: Alfredo Best MD BUN/CRE Ratio 18 Normal 9-20 [facility] Comment on above: Performed By: #### U MICAO, UA #### [facility] [address] [place] [address] Floor Space Allocator: Alfredo Best MD Calcium [Mass/Vol] 9.3 mg/dL Normal 8.6-10.4 [facility] Comment on above: Performed By: #### U MICAO, UA #### [facility] [address] [place] [address] Floor Space Allocator: Alfredo Best MD Chloride [Moles/Vol] 103 mmol/L Normal 98-107 [facility] Comment on above: Performed By: #### U MICAO, UA #### [facility] [address] [place], [place] [id number] Floor Space Allocator: Alfredo Best MD CO2 [Moles/Vol] 22 mmol/L Normal 20-31 [facility] Comment on above: Performed By: #### U MICAO, UA #### [facility] [address] [place], [place] [phone] Floor Space Allocator: Alfredo Best MD Creatinine [Mass/Vol] 0.68 mg/dL Normal 0.50-0.90 [facility] Comment on above: Performed By: #### U MICAO, UA #### [facility] [address] [place] [address] Floor Space Allocator: Alfredo Best MD GFR, Amer >60 Normal >60 [facility] Comment on above: Performed By: #### U MICAO, UA #### [facility] [address] [place] [address] Floor Space Allocator: Alfredo Best MD GFR,non Amer >60 Normal >60 [facility] Comment on above: Performed By: #### U NADEGEO, UA #### [facility] [address] [place], [place] [id number] Floor Space Allocator: Alfredo Best MD Glucose [Mass/Vol] 193 mg/dL High 70-99 [facility] Comment on above: Performed By: #### U NADEGEO, UA #### [facility] [address] [place], [place] [id number] Floor Space Allocator: Alfredo Best MD Potassium [Moles/Vol] 3.9 mmol/L Normal 3.7-5.3 [facility] Comment on above: Performed By: #### U SHADI, UA #### [facility] [address] [place], [place] [id number] Floor Space Allocator: Alfredo Best MD Protein [Mass/Vol] 7.4 g/dL Normal 6.4-8.3 [facility] Comment on above: Performed By: #### U SHADI, UA #### [facility] [address] [place], [place] [id number] Floor Space Allocator: Alfredo Best MD Sodium [Moles/Vol] 137 mmol/L Normal 135-144 [facility] Comment on above: Performed By: #### U NADEGEO, UA #### [facility] [address] [place], [facility] Floor Space Allocator: Alfredo Best MD Staging: Normal [facility] Comment on above: Result Comment: Stag e 1: Some kidney damage normal GFR Stage 2: Mild kidney damage GFR 60-89 Stage 3: Moderate kidney damage GFR 30-59 Stage 4: Severe kidney damage GFR 15-29 Stage 5: Severe kidney damage GFR <15 ESRD - chronic treatment by dialysis or transplant Performed By: #### U NADEGEO, UA #### [facility] [address] [place], [place] [address] Floor Space Allocator: Alfredo Best MD Urea nitrogen [Mass/Vol] 12 mg/dL Normal 6-20 [facility] Comment on above: Performed By: #### U SHADI, UA #### [facility] [address] [place] [address] Floor Space Allocator: Alfredo Best MD Comprehensive Metabolic Pane l w/ Reflex to MGon 02-23-2020 Albumin [Mass/Vol] 4.4 g/dL 3.5 - 5.2 g/dL [place] Albumin/Globulin [Mass ratio] 1.5 {ratio} [place] ALP [Catalytic activity/Vol] 71 U/L 35 - 104 U/L [place] ALT [Catalytic activity/Vol] 12 U/L 5 - 33 U/L [place] Anion gap [Moles/Vol] 12 mmol/L 9 - 17 mmol/L [place] AST [Catalytic activity/Vol] 15 U/L <32 [place] Bilirubin Ql (U) 0.31 mg/dL 0.3 - 1.2 mg/dL [place] Bun/Cre Ratio 18 [place] Calcium [Mass/Vol] 9.3 mg/dL 8.6 - 10. 4 mg/dL [place] Chloride [Moles/Vol] 103 mmol/L 98 - 10 7 mmol/L [place] CO2 [Moles/Vol] 22 mmol/L 20 - 31 mmol/L [place] Creatinine [Mass/Vol] 0.68 mg/dL 0.5 - 0.9 mg/dL [place] GFR >60 >60 mL/min [place] GFR Non- >60 >60 mL/min [place] Glucose [Mass/Vol] 193 mg/dL High 70 - 99 mg/dL [place] Interpretation and review of laboratory results Abnormal [place] Potassium [Moles/Vol] 3.9 mmol/L 3.7 - 5.3 mmol/L [place] Protein [Mass/Vol] 7.4 g/dL 6.4 - 8.3 g/dL [place] Sodium [Moles/Vol] 137 mmol/L 135 - 144 mmol/L [place] Urea nitrogen [Mass/Vol] 12 mg/dL 6 - 20 mg/dL [place] HCG Qualitative, Serumon hCG Qual Negative NEGATIVE [place] Comment on above: Specimens with hCG l evels near the threshold of the test (25 mIU/mL) may give a negative or indeterminate result. In such cases, another test should be performed with a new specimen in 48-72 hours. If early is suspected clinically in this setting, correlation with quantitative serum b-hCG level is suggested. [facility] has confirmed the use of plasma for this test. This has not been cleared or approved by the U.S. Food and Drug Administration. The FDA has determined that such clearance is not necessary. HCG Screen, Bloodon 02-23-20 20 HCG Screen, Blood Negative Normal NEG [facility] Comment on above: Result Comment: Spec imens with hCG levels near the threshold of the test (25 mIU/mL) may give a negative or indeterminate result. In such cases, another test should be performed with a new specimen in 48-72 hours. If early is suspected clinically in this setting, correlation with quantitative serum b-hCG level is suggested. [facility] has confirmed the use of plasma for this test. This has not been cleared or approved by the U.S. Food and Drug Administration. The FDA has determined that such clearance is not necessary. Performed By: #### C DP, HCG, CMPX #### [facility] [address] [place] [address] Floor Space Allocator: Alfredo Best MD Lactic Acidon 02-23-2020 Lactate [Moles/Vol] 1.2 mmol/L Normal 0.5-2.2 [facility] Comment on above: Performed By: #### C DP, CMPX #### [facility] [address] [place] [address] Floor Space Allocator: Alfredo Best MD Lactic Acid,Whole Bl NOT REPORTED Normal 0.7-2.1 [facility] Comment on above: Performed By: #### C DP, CMPX #### [facility] [address] [place] [address] Floor Space Allocator: Alfredo Best MD Lactic acid, plasmaon 2019 Lactate [Moles/Vol] 1.2 mmol/L 0.5 - 2. 2 mmol/L [place] Lactic Acid, Whole Blood NOT REPORTED 0.7 - 2.1 mmol/L [place] Metabolic Panelon 02-23-2020 GFR/1.73 sq M predicted among non-blacks MDRD (S/P/Bld) [Vol rate/Area] [place] Comment on above: Average GFR for 30-3 9 years old: 107 mL/min/1.73sq m Chronic Kidney Disease: <60 mL/min/1.73sq m Kidney failure: <15 mL/min/1.73sq m eGFR calculated using average adult body mass. Additional eGFR calculator available at: http://www.enGene/multiple_crcl_2012.htm Stage 1: Some kidney damage normal GFR Stage 2: Mild kidney damage GFR 60-89 Stage 3: Moderate kidney damage GFR 30-59 Stage 4: Severe kidney damage GFR 15-29 Stage 5: Severe kidney damage GFR <15 ESRD - chronic treatment by dialysis or transplant Microscopic Urinalysison Amorphous, UA NOT REPORTED None [place], [place] Bacteria, UA TRACE Abnormal None [place] Casts UA NOT REPORTED /LPF [place] Crystals, UA NOT REPORTED None /HPF [place] Epithelial Cells UA 10 TO 20 [place] Interpretation and review of laboratory results Abnormal [place] Mucus, UA NOT REPORTED None [place] Other Observations UA NOT REPORTED NOT REQ. [place] RBC (U) [#/Vol] 0 TO 2 [place] Renal Epithelial, UA NOT REPORTED 0 /HPF [place] Trichomonas, UA NOT REPORTED None [facility] [place] WBC, UA 2 TO 5 [facility] [place] Yeast, UA NOT REPORTED None [facility] [place] - [facility] [place] Urinalysis, Routineon 2019 Acetoacetic Acid,Ur Negative Normal NEG [facility] Comment on above: Performed By: #### U MICAO, UA #### [facility] [address] [place], [place] [phone] Floor Space Allocator: Alfredo Best MD Bilirubin, SemiQt,Ur Negative Normal NEG [facility] Comment on above: Performed By: #### U MICAO, UA #### [facility] [address] [place] [address] Floor Space Allocator: Alfredo Best MD Color (U) YELLOW Normal L [facility] Comment on above: Performed By: #### U MICAO, UA #### [facility] [address] [place], [facility] Floor Space Allocator: Alfredo Best MD Glucose Ql (U) Negative Normal NEG [facility] Comment on above: Performed By: #### U MICAO, UA #### [facility] [address] [place], [facility] Floor Space Allocator: Alfredo Best MD Hemoglobin, Ur TRACE Abnormal NEG [facility] Comment on above: Performed By: #### U MICAO, UA #### [facility] [address] [place], [facility] Floor Space Allocator: Alfredo Best MD Leukocyte esterase Test strip Ql (U) TRACE Abnormal NEG [facility] Comment on above: Performed By: #### U MICAO, UA #### [facility] [address] [place], [facility] Floor Space Allocator: Alfredo Best MD Nitrite,Ur Negative Normal [facility] Comment on above: Performed By: #### U MICAO, UA #### [facility] [address] [place] [address] Floor Space Allocator: Alfredo Best MD PH,Ur 6.5 Normal 5.0-9.0 [facility] Comment on above: Performed By: #### U NADEGEO, UA #### [facility] [address] [place], [place] [id number] Floor Space Allocator: Alfredo Best MD Protein Ql (U) Negative Normal NEG [facility] Comment on above: Performed By: #### U MICAO, UA #### [facility] [address] [place] [address] Floor Space Allocator: Alfredo Best MD Spec. [place],Ur <1.005 Low 1.010-1.02 0 [facility] Comment on above: Performed By: #### U NADEGEO, UA #### [address] [place], [place] 1926783 Floor Space Allocator: Alfredo Best MD Turbidity CLEAR Normal CLEAR [facility] Comment on above: Performed By: #### U NADEGEO, UA #### [address] [place] [address] Floor Space Allocator: Alfredo Best MD Urobilinogen,Ur Normal Normal NORM [facility] Comment on above: Performed By: #### U MICAO, UA #### [address] [place], [place] [phone] Floor Space Allocator: Alfredo Best MD Comment NOT REPORTED Normal [facility] Comment on above: Performed By: #### U MICAO, UA #### [facility] [address] [place] [address] Floor Space Allocator: Alfredo Best MD Urinalysis, reflex to micros copicon 02-23-2020 Bilirubin Urine [facility] [place] Color, UA YELLOW YELLOW [facility] [place], [place] Glucose, Ur Negative NEGATIVE [facility] [place] Interpretation and review of laboratory results Abnormal [facility] [place] Ketones Ql (U) Negative NEGATIVE [facility] [place] Leukocyte esterase Test strip Ql (U) TRACE Abnormal NEGATIVE [facility], [place] Nitrite, Urine Negative NEGATIVE [facility], [place] pH, UA 6.5 [place], [place] Protein (U) [Mass/Vol] Negative NEGATIVE Me [facility], [place] Specific [place], UA <1.005 Low [place], [place] Turbidity UA CLEAR CLEAR [place] Urinalysis Comments NOT REPORTED [place] Urine Hgb TRACE Abnormal NEGATIVE [place] Urobilinogen, Urine Normal Normal [place] Urinalysis,Microon 0 ----- Normal [facility] Comment on above: Performed By: #### U MICAO, UA #### [facility] [address] [place] [address] Floor Space Allocator: Alfredo Best MD Bacteria TRACE Abnormal NONE [facility] Comment on above: Performed By: #### U MICAO, UA #### [facility] [address] [place] [address] Floor Space Allocator: Alfredo Best MD Epithelial cells LM Ql (Urine sed) 10 TO 20 Normal 0-25 [facility] Comment on above: Performed By: #### U MICAO, UA #### [facility] [address] [place] [address] Floor Space Allocator: Alfredo Best MD Urine RBC's 0 TO 2 Normal 0-2 [facility] Comment on above: Performed By: #### U MICAO, UA #### [facility] [address] [place] [address] Floor Space Allocator: Alfredo Best MD Urine WBC's 2 TO 5 Normal 0-5 [facility] Comment on above: Performed By: #### U MICAO, UA #### [facility] [address] [place] [address] Floor Space Allocator: Alfredo Best MD Amorphous sediment LM Ql (Urine sed) NOT REPORTED Normal [facility] Comment on above: Performed By: #### U MICAO, UA #### [facility] [address] [place], [place] [phone] Floor Space Allocator: Alfredo Best MD Casts NOT REPORTED Normal [facility] Comment on above: Performed By: #### U MICAO, UA #### [facility] [address] [place], [place] [id number] Floor Space Allocator: Alfredo Best MD Crystals LM Nom (Urine sed) NOT REPORTED Normal NONE [facility] Comment on above: Performed By: #### U MICAO, UA #### [facility] [address] [place], [place] [phone] Floor Space Allocator: Alfredo Best MD Epithelial, Renal NOT REPORTED Normal 0 [facility] Comment on above: Performed By: #### U MICAO, UA #### [facility] [address] [place], [place] [phone] Floor Space Allocator: Alfredo Best MD Mucus Strands NOT REPORTED Normal NONE [facility] Comment on above: Performed By: #### U MICAO, UA #### [facility] [address] [place], [place] 116[address]383 Floor Space Allocator: Alfredo Best MD Other Observations NOT REPORTED Normal NREQ [facility] Comment on above: Performed By: #### U MICAO, UA #### [facility] [address] [place], [place] [address] Floor Space Allocator: Alfredo Best MD Trichomonas NOT REPORTED Normal NONE [facility] Comment on above: Performed By: #### U MICAO, UA #### [facility] [address] [place] [address] Floor Space Allocator: Alfredo Best MD Yeast NOT REPORTED Normal NONE [facility] Comment on above: Performed By: #### U MICAO, UA #### [facility] [address] [place], [place] [phone] Floor Space Allocator: Alfredo Best MD CBC Auto Differentialon -2 Basophils (Bld) [#/Vol] 0.03 10*3/uL [place] Basophils/100 WBC (Bld) 0 % 0 - 2 % [place] Differential Type NOT REPORTED [place] Eosinophils (Bld) [#/Vol] 10*3/uL [place] Eosinophils/100 WBC (Bld) 0 % Low 1 - 4 % [place] Erythrocyte distribution width (RBC) [Ratio] 11.9 % 11.8 - 14.4 % [place] Hematocrit (Bld) [Volume fraction] 48.6 % High 36.3 - 47.1 % [place] Hemoglobin (Bld) [Mass/Vol] 16.9 g/dL High 11.9 - 15.1 g/dL [place] Immature granulocytes (Bld) [#/Vol] 0 % 0 [place] Immature granulocytes (Bld) [#/Vol] 0.03 10*3/uL [place] Interpretation and review of laboratory results Abnormal [place] Lymphocytes (Bld) [#/Vol] 1.35 10*3/uL [place] Lymphocytes/100 WBC (Bld) 17 % Low 24 - 43 % [place] MCH (RBC) [Entitic mass] 30.9 pg 25.2 - 33.5 pg [place] MCHC (RBC) [Mass/Vol] 34.8 g/dL 28.4 - 34.8 g/dL [place] MCV (RBC) [Entitic vol] 88.8 fL 82.6 - 102.9 fL [place] Monocytes (Bld) [#/Vol] 0.44 10*3/uL [place] Monocytes/100 WBC (Bld) 5 % 3 - 12 % [place] Platelet mean volume (Bld) [Entitic vol] 8.9 fL 8.1 - 13.5 fL [place] Platelets (Bld) [#/Vol] NOT REPORTED [place] Platelets (Bld) [#/Vol] 321 10*3/uL [place] RBC (Bld) [#/Vol] 5.47 10*6/uL High 3.95 - 5.11 m/uL [place] RBC morphology finding Nom (Bld) NOT REPORTED [place] Segmented neutrophils/100 WBC (Bld) 78 % High 36 - 65 % [place] Segs Absolute 6.28 [place] WBC (Bld) [#/Vol] 8.1 10*3/uL [place] WBC (Bld) [#/Vol] 0.0 10*3/uL 0.0 per 100 WBC [place] WBC Morphology NOT REPORTED [place], [place] CBC with Diffon 02-21-2020 Abs. Basophil 0.03 k/uL Normal 0.00-0.20 [facility] Comment on above: Performed By: #### C DP, CMPX #### [facility] [address] [place] [address] [place] [address] Floor Space Allocator: Alfredo Best MD Abs. Eosinophil <0.03 Normal 0.00-0.44 [facility] Comment on above: Performed By: #### C DP, CMPX #### [address] [place] [address] Floor Space Allocator: Alfredo Best MD Abs.Imm.Granulocyte 0.03 k/uL Normal 0.00-0.30 [facility] Comment on above: Performed By: #### C DP, CMPX #### [facility] [address] [place] [address] Floor Space Allocator: Alfredo Best MD Abs.Neutrophil (Seg) 6.28 k/uL Normal 1.50-8.10 [facility] Comment on above: Performed By: #### C DP, CMPX #### [facility] [address] [place] [address] Floor Space Allocator: Alfredo Best MD Basophils/100 WBC (Bld) 0 % Normal 0-2 [facility] Comment on above: Performed By: #### C DP, CMPX #### [facility] [address] [place], [place] [phone] Floor Space Allocator: Alrfedo Best MD Eosinophils/100 WBC (Bld) 0 % Low 1-4 [facility] Comment on above: Performed By: #### C DP, CMPX #### [facility] [address] [place], [facility] Floor Space Allocator: Alfredo Best MD Erythrocyte distribution width (RBC) [Ratio] 11.9 % Normal 11.8-14.4 [facility] Comment on above: Performed By: #### C DP, CMPX #### [address] [place] [id number] Floor Space Allocator: Alfredo Best MD Hematocrit (Bld) [Volume fraction] 48.6 % High 36.3-47.1 [facility] Comment on above: Performed By: #### C DP, CMPX #### [address] [place], [facility] Floor Space Allocator: Alfredo Best MD Hemoglobin (Bld) [Mass/Vol] 16.9 g/dL High 11.9-15.1 [facility] Comment on above: Performed By: #### C DP, CMPX #### [facility] [address] [place], [facility] Floor Space Allocator: Alfredo Best MD Immature granulocytes/100 WBC (Bld) 0 % Normal 0 [facility] Comment on above: Performed By: #### C DP, CMPX #### [address] [place], [place] [id number] Floor Space Allocator: Alfredo Best MD Lymphocytes (Bld) [#/Vol] 1.35 10*3/uL Normal 1.10-3.70 [facility] Comment on above: Performed By: #### C DP, CMPX #### [facility] [address] [place], [place] [phone] Floor Space Allocator: Alfredo Best MD Lymphocytes/100 WBC (Bld) 17 % Low 24-43 [facility] Comment on above: Performed By: #### C DP, CMPX #### [facility] [address] [place], [facility] Floor Space Allocator: Alfredo Best MD MCH (RBC) [Entitic mass] 30.9 pg Normal 25.2-33.5 [facility] Comment on above: Performed By: #### C DP, CMPX #### [facility] [address] [place] [id number] Floor Space Allocator: Alfredo Best MD MCHC (RBC) [Mass/Vol] 34.8 g/dL Normal 28.4-34.8 [facility] Comment on above: Performed By: #### C DP, CMPX #### [address] [place], [facility] Floor Space Allocator: Alfredo Best MD MCV (RBC) [Entitic vol] 88.8 fL Normal 82.6-102.9 [facility] Comment on above: Performed By: #### C DP, CMPX #### [facility] [address] [place], [place] [address] Floor Space Allocator: Alfredo Best MD Monocytes (Bld) [#/Vol] 0.44 10*3/uL Normal 0.10-1.20 [facility] Comment on above: Performed By: #### C DP, CMPX #### [facility] [address] [place] [address] Floor Space Allocator: Alfredo Best MD Monocytes/100 WBC (Bld) 5 % Normal 3-12 [facility] Comment on above: Performed By: #### C DP, CMPX #### [facility] [address] [place], [place] [id number] Floor Space Allocator: Alfredo Best MD Neutrophil (Seg) 78 % High 36-65 [facility] Comment on above: Performed By: #### C DP, CMPX #### [facility] [address] [place], [place] [id number] Floor Space Allocator: Alfredo Best MD NRBC Automated 0.0 per 100 WBC Normal 0.0 [facility] Comment on above: Performed By: #### C DP, CMPX #### [facility] [address] [place], [place] [id number] Floor Space Allocator: Alfredo Best MD Platelet mean volume (Bld) [Entitic vol] 8.9 fL Normal 8.1-13.5 [facility] Comment on above: Performed By: #### C DP, CMPX #### [facility] [address] [place], [place] [phone] Floor Space Allocator: Alfredo Best MD Platelets (Bld) [#/Vol] 321 10*3/uL Normal 138-453 [facility] Comment on above: Performed By: #### C DP, CMPX #### [facility] [address] [place], [place] [phone] Floor Space Allocator: Alfredo Best MD RBC (Bld) [#/Vol] 5.47 10*6/uL High 3.95-5.11 [facility] Comment on above: Performed By: #### C DP, CMPX #### [facility] [address] [place], [place] [phone] Floor Space Allocator: Alfredo Best MD WBC (Bld) [#/Vol] 8.1 10*3/uL Normal 3.5-11.3 [facility] Comment on above: Performed By: #### C DP, CMPX #### [facility] [address] [place], [place] [phone] Floor Space Allocator: Alfredo Best MD Auto Diff Performed NOT REPORTED Normal [facility] Comment on above: Performed By: #### C DP, CMPX #### [facility] [address] [place] [address] Floor Space Allocator: Alfredo Best MD Platelet Estimate NOT REPORTED Normal [facility] Comment on above: Performed By: #### C DP, CMPX #### [facility] [address] [place], [place] [phone] Floor Space Allocator: Alfredo Best MD RBC morphology finding Nom (Bld) NOT REPORTED Normal [facility] Comment on above: Performed By: #### C DP, CMPX #### [facility] [address] [place] [address] Floor Space Allocator: Alfredo Best MD WBC Morphology NOT REPORTED Normal [facility] Comment on above: Performed By: #### C DP, CMPX #### [address] [place], [place] [phone] Floor Space Allocator: Alfredo Best MD CT ABDOMEN PELVIS W [...] Sj Lama MD 02/21/20 Final result Normal [facility] CT ABDOMEN PELVIS W IV CONTR AST Additional Contrast? Noneon 02-21-2020 1. Mild diffuse colo keily wall thickening extending from the proximal transverse colon to the sigmoid colon. This is nonspecific and might be artifact related to under distension. If clinically indicated, follow-up endoscopy could be done to evaluate for colitis. 2. Diverticulosis. 3. Otherwise, no evidence of acute intra-abdominal or intrapelvic process. [facility] [place], [place] Nuno, pn Incoming Radiant Results From [employer] - 02/21/2020 10:07 AM EDT EXAMINATION: CT [...] evidence of acute intra-abdominal or intrapelvic process. [place], [place] EXAMINATION: CT OF [facility] ABDOMEN AND PELVIS WITH CONTRAST 02/21/2020 9:48 [...] anterior abdominal wall from prior hernia repair. [facility] [place], [place] Comp Metabolic Pr/rfx MGon 0 02-21-2020 (cont.) Normal [facility] Comment on above: Result Comment: Aver age GFR for 30-39 years old: 107 mL/min/1.73sq m Chronic Kidney Disease: <60 mL/min/1.73sq m Kidney failure: <15 mL/min/1.73sq m eGFR calculated using average adult body mass. Additional eGFR calculator available at: http://www.enGene/multiple_crcl_2011.htm Performed By: #### C DP, CMPX #### [facility] [address] [place] [address] Floor Space Allocator: Alfredo Best MD Albumin [Mass/Vol] 4.7 g/dL Normal 3.5-5.2 [facility] Comment on above: Performed By: #### C DP, CMPX #### [facility] [address] [place] [address] Floor Space Allocator: Alfredo Best MD Albumin/Glob Ratio 1.5 Normal 1.0-2.5 [facility] Comment on above: Performed By: #### C DP, CMPX #### [facility] [address] [place] [address] Floor Space Allocator: Alfredo Best MD Alkaline Phos 81 U/L Normal 35-104 [facility] Comment on above: Performed By: #### C DP, CMPX #### [facility] [address] [place] [address] Floor Space Allocator: Alfredo Best MD ALT [Catalytic activity/Vol] 16 U/L Normal 5-33 [facility] Comment on above: Performed By: #### C DP, CMPX #### [facility] [address] [place], [place] [phone] Floor Space Allocator: Alfredo Best MD Anion gap [Moles/Vol] 14 mmol/L Normal 9-17 [facility] Comment on above: Performed By: #### C DP, CMPX #### [facility] [address] [place], [place] [phone] Floor Space Allocator: Alfredo Best MD AST [Catalytic activity/Vol] 15 U/L Normal <32 [facility] Comment on above: Performed By: #### C DP, CMPX #### [facility] [address] [place], [place] [phone] Floor Space Allocator: Alfredo Best MD Bilirubin [Mass/Vol] 0.41 mg/dL Normal 0.3-1.2 [facility] Comment on above: Performed By: #### C DP, CMPX #### [facility] [address] [place], [place] [id number] Floor Space Allocator: Alfredo Best MD BUN/CRE Ratio 16 Normal 9-20 [facility] Comment on above: Performed By: #### C DP, CMPX #### [facility] [address] [place], [place] [phone] Floor Space Allocator: Alfredo Best MD Calcium [Mass/Vol] 9.7 mg/dL Normal 8.6-10.4 [facility] Comment on above: Performed By: #### C DP, CMPX #### [facility] [address] [place], [place] [phone] Floor Space Allocator: Alfredo Best MD Chloride [Moles/Vol] 102 mmol/L Normal 98-107 [facility] Comment on above: Performed By: #### C DP, CMPX #### [facility] [address] [place], [place] [phone] Floor Space Allocator: Alfredo Best MD CO2 [Moles/Vol] 19 mmol/L Low 20-31 [facility] Comment on above: Performed By: #### C DP, CMPX #### [facility] [address] [place], [place] [phone] Floor Space Allocator: Alfredo Best MD Creatinine [Mass/Vol] 0.67 mg/dL Normal 0.50-0.90 [facility] Comment on above: Performed By: #### C DP, CMPX #### [facility] [address] [place], [place] [phone] Floor Space Allocator: Alfredo Best MD GFR, Amer >60 Normal >60 [facility] Comment on above: Performed By: #### C DP, CMPX #### [facility] [address] [place], [place] [phone] Floor Space Allocator: Alfredo Best MD GFR,non Amer >60 Normal >60 [facility] Comment on above: Performed By: #### C DP, CMPX #### [facility] [address] [place], [place] [phone] Floor Space Allocator: Alfredo Best MD Glucose [Mass/Vol] 172 mg/dL High 70-99 [facility] Comment on above: Performed By: #### C DP, CMPX #### [facility] [address] [place], [place] [phone] Floor Space Allocator: Alfredo Best MD Potassium [Moles/Vol] 3.8 mmol/L Normal 3.7-5.3 [facility] Comment on above: Performed By: #### C DP, CMPX #### [facility] [address] [place] [address] Floor Space Allocator: Alfredo Best MD Protein [Mass/Vol] 7.9 g/dL Normal 6.4-8.3 [facility] Comment on above: Performed By: #### C DP, CMPX #### [facility] [address] [place] [address] Floor Space Allocator: Alfredo Best MD Sodium [Moles/Vol] 135 mmol/L Normal 135-144 [facility] Comment on above: Performed By: #### C DP, CMPX #### [facility] [address] [place] [address] Floor Space Allocator: Alfredo Best MD Staging: Normal [facility] Comment on above: Result Comment: Stag e 1: Some kidney damage normal GFR Stage 2: Mild kidney damage GFR 60-89 Stage 3: Moderate kidney damage GFR 30-59 Stage 4: Severe kidney damage GFR 15-29 Stage 5: Severe kidney damage GFR <15 ESRD - chronic treatment by dialysis or transplant Performed By: #### C DP, CMPX #### [facility] [address] [place] [address] Floor Space Allocator: Alfredo Best MD Urea nitrogen [Mass/Vol] 11 mg/dL Normal 6-20 [facility] Comment on above: Performed By: #### C DP, CMPX #### [address] [place] [address] Floor Space Allocator: Alfredo Best MD Comprehensive Metabolic Pane l w/ Reflex to MGon 02-21-2020 Albumin [Mass/Vol] 4.7 g/dL 3.5 - 5.2 g/dL [place] Albumin/Globulin [Mass ratio] 1.5 {ratio} [place] ALP [Catalytic activity/Vol] 81 U/L 35 - 104 U/L [place] ALT [Catalytic activity/Vol] 16 U/L 5 - 33 U/L [place] Anion gap [Moles/Vol] 14 mmol/L 9 - 17 mmol/L [place] AST [Catalytic activity/Vol] 15 U/L <32 [place] Bilirubin Ql (U) 0.41 mg/dL 0.3 - 1.2 mg/dL [place] Bun/Cre Ratio 16 [place] Calcium [Mass/Vol] 9.7 mg/dL 8.6 - 10. 4 mg/dL [place] Chloride [Moles/Vol] 102 mmol/L 98 - 10 7 mmol/L [place] CO2 [Moles/Vol] 19 mmol/L Low 20 - 31 mmol/L [place] Creatinine [Mass/Vol] 0.67 mg/dL 0.5 - 0.9 mg/dL [place] GFR >60 >60 mL/min [place] GFR Non- >60 >60 mL/min [place] Glucose [Mass/Vol] 172 mg/dL High 70 - 99 mg/dL [place] Interpretation and review of laboratory results Abnormal [place] Potassium [Moles/Vol] 3.8 mmol/L 3.7 - 5.3 mmol/L [place] Protein [Mass/Vol] 7.9 g/dL 6.4 - 8.3 g/dL [place] Sodium [Moles/Vol] 135 mmol/L 135 - 144 mmol/L [place] Urea nitrogen [Mass/Vol] 11 mg/dL 6 - 20 mg/dL [place] Lactic Acidon 02-21-2020 Lactate [Moles/Vol] 0.9 mmol/L Normal 0.5-2.2 [facility] Comment on above: Performed By: #### L ACTIC #### [facility] [address] [place] [address] Floor Space Allocator: Alfredo Best MD Lactic Acid,Whole Bl NOT REPORTED Normal 0.7-2.1 [facility] Comment on above: Performed By: #### L ACTIC #### [facility] [address] [place] [address] Floor Space Allocator: Alfredo Best MD Lactic acid, plasmaon 2019 Lactate [Moles/Vol] 0.9 mmol/L 0.5 - 2. 2 mmol/L [place] Lactic Acid, Whole Blood NOT REPORTED 0.7 - 2.1 mmol/L [place] Lipaseon 02-21-2020 Lipase [Catalytic activity/Vol] 20 U/L Normal 13-60 [facility] Comment on above: Performed By: #### C DP, CMPX #### [facility] [address] [place] [address] Floor Space Allocator: Alfredo Best MD Lipase [Catalytic activity/Vol] 20 U/L 13 - 60 U/L [place] Metabolic Panelon 02-21-2020 GFR/1.73 sq M predicted among non-blacks MDRD (S/P/Bld) [Vol rate/Area] [place] Comment on above: Average GFR for 30-3 9 years old: 107 mL/min/1.73sq m Chronic Kidney Disease: <60 mL/min/1.73sq m Kidney failure: <15 mL/min/1.73sq m eGFR calculated using average adult body mass. Additional eGFR calculator available at: http://www.enGene/multiple_crcl_2012.htm Stage 1: Some kidney damage normal GFR Stage 2: Mild kidney damage GFR 60-89 Stage 3: Moderate kidney damage GFR 30-59 Stage 4: Severe kidney damage GFR 15-29 Stage 5: Severe kidney damage GFR <15 ESRD - chronic treatment by dialysis or transplant Microscopic Urinalysison Amorphous, UA NOT REPORTED None [place], [place] Bacteria, UA TRACE Abnormal None [place] Casts UA NOT REPORTED /LPF [place] Crystals, UA NOT REPORTED None /HPF [place], [place] Epithelial Cells UA 0 TO 2 [place] Interpretation and review of laboratory results Abnormal [place] Mucus, UA NOT REPORTED None [place] Other Observations UA NOT REPORTED NOT REQ. [place] RBC (U) [#/Vol] 0 TO 2 [place], [place] Renal Epithelial, UA NOT REPORTED 0 /HPF [place] Trichomonas, UA NOT REPORTED None [facility], [place] WBC, UA 0 TO 2 [facility] Yeast, UA NOT REPORTED None [facility], [place] - [facility], [place] Urinalysis, Routineon 2019 Acetoacetic Acid,Ur TRACE Abnormal NEG [facility] Comment on above: Performed By: #### U MICAO, UA #### [facility] [address] [place], [facility] Floor Space Allocator: Alfredo Best MD Bilirubin, SemiQt,Ur SMALL Abnormal NEG [facility] Comment on above: Performed By: #### U MICAO, UA #### [facility] [address] [place] [phone] Floor Space Allocator: Alfredo Best MD Color (U) YELLOW Normal L [facility] Comment on above: Performed By: #### U MICAO, UA #### [facility] [address] [place], [facility] Floor Space Allocator: Alfredo Best MD Glucose Ql (U) Negative Normal [facility] Comment on above: Performed By: #### U MICAO, UA #### [facility] [address] [place] [phone] Floor Space Allocator: Alfredo Best MD Hemoglobin, Ur TRACE Abnormal NEG [facility] Comment on above: Performed By: #### U MICAO, UA #### [facility] [address] [place] [address] Floor Space Allocator: Alfredo Best MD Leukocyte esterase Test strip Ql (U) Negative Normal [facility] Comment on above: Performed By: #### U MICAO, UA #### [facility] [address] [place] [address] Floor Space Allocator: Alfredo Best MD Nitrite,Ur Negative Normal [facility] Comment on above: Performed By: #### U MICAO, UA #### [facility] [address] [place] [address] Floor Space Allocator: Alfredo Best MD PH,Ur 6.0 Normal 5.0-9.0 [facility] Comment on above: Performed By: #### U MICAO, UA #### [facility] [address] [place] [address] Floor Space Allocator: Alfredo Best MD Protein Ql (U) Negative Normal NEG [facility] Comment on above: Performed By: #### U MICAO, UA #### [facility] [address] [place] [address] Floor Space Allocator: Alfredo Best MD Spec. [place],Ur 1.015 Normal 1.010-1.02 0 [facility] Comment on above: Performed By: #### U MICAO, UA #### [facility] [address] [place] [address] Floor Space Allocator: Alfredo Best MD Turbidity CLEAR Normal CLEAR [facility] Comment on above: Performed By: #### U MICAO, UA #### [facility] [address] [place] [address] Floor Space Allocator: Alfredo Best MD Urobilinogen,Ur Normal Normal NORM [facility] Comment on above: Performed By: #### U MICAO, UA #### [facility] [address] [place], [place] [address] Floor Space Allocator: Alfredo Best MD Comment NOT REPORTED Normal [facility] Comment on above: Performed By: #### U MICAO, UA #### [facility] [address] [place], [place] [phone] Floor Space Allocator: Alfredo Best MD Urinalysis, reflex to [facility] copicon 02-21-2020 Bilirubin Urine SMALL [facility]IVE [facility] [place] Color, UA YELLOW YELLOW [facility] [place], [place] Glucose, Ur Negative NEGATIVE [facility] Interpretation and review of laboratory results Abnormal [place], [place] Ketones Ql (U) TRACE Abnormal NEGATIVE [place], [place] Leukocyte esterase Test strip Ql (U) Negative NEGATIVE [place] Nitrite, Urine Negative NEGATIVE [place] pH, UA 6.0 [place] Protein (U) [Mass/Vol] Negative NEGATIVE [place] Specific [place], UA 1.015 [place], [place] Turbidity UA CLEAR CLEAR [place] Urinalysis Comments NOT REPORTED [place] Urine Hgb TRACE Abnormal NEGATIVE [place] Urobilinogen, Urine Normal Normal [place] Urinalysis,Microon 0 ----- Normal [facility] Comment on above: Performed By: #### U MICAO, UA #### [facility] [address] [place] [address] Floor Space Allocator: Alfredo Best MD Bacteria TRACE Abnormal NONE [facility] Comment on above: Performed By: #### U MICAO, UA #### [facility] [address] [place] [address] Floor Space Allocator: Alfredo Best MD Epithelial cells LM Ql (Urine sed) 0 TO 2 Normal 0-25 [facility] Comment on above: Performed By: #### U MICAO, UA #### [facility] [address] [place] [address] Floor Space Allocator: Alfredo Best MD Urine RBC's 0 TO 2 Normal 0-2 [facility] Comment on above: Performed By: #### U MICAO, UA #### [facility] [address] [place] [address] Floor Space Allocator: Alfredo Best MD Urine WBC's 0 TO 2 Normal 0-5 [facility] Comment on above: Performed By: #### U MICAO, UA #### [facility] [address] [place] [address] Floor Space Allocator: Alfredo Best MD Amorphous sediment LM Ql (Urine sed) NOT REPORTED Normal NONE [facility] Comment on above: Performed By: #### U MICAO, UA #### [facility] [address] [place] [address] Floor Space Allocator: Alfredo Best MD Casts NOT REPORTED Normal [facility] Comment on above: Performed By: #### U MICAO, UA #### [facility] [address] [place], [place] [phone] Floor Space Allocator: Alfredo Best MD Crystals LM Nom (Urine sed) NOT REPORTED Normal NONE [facility] Comment on above: Performed By: #### U MICAO, UA #### [facility] [address] [place], [place] [id number] Floor Space Allocator: Alfredo Best MD Epithelial, Renal NOT REPORTED Normal 0 [facility] Comment on above: Performed By: #### U MICAO, UA #### [facility] [address] [place], [place] [phone] Floor Space Allocator: Alfredo Best MD Mucus Strands NOT REPORTED Normal [facility] Comment on above: Performed By: #### U MICAO, UA #### [facility] [address] [place], [place] [phone] Floor Space Allocator: Alfredo Best MD Other Observations NOT REPORTED Normal NREQ [facility] Comment on above: Performed By: #### U MICAO, UA #### [facility] [address] [place], [place] [phone] Floor Space Allocator: Alfredo Best MD Trichomonas NOT REPORTED Normal NONE [facility] Comment on above: Performed By: #### U MICAO, UA #### [facility] [address] [place] [address] Floor Space Allocator: Alfredo Best MD Yeast NOT REPORTED Normal [facility] Comment on above: Performed By: #### U MICAO, UA #### [facility] [address] [place] [address] Floor Space Allocator: Alfredo Best MD CBC Auto Differentialon Basophils (Bld) [#/Vol] 0.10 10*3/uL [place] Basophils/100 WBC (Bld) 1 % 0 - 2 % [place] Differential Type NOT REPORTED [place] Eosinophils (Bld) [#/Vol] 0.25 10*3/uL [place] Eosinophils/100 WBC (Bld) 3 % 1 - 4 % [place] Erythrocyte distribution width (RBC) [Ratio] 12.3 % 11.8 - 14.4 % [place] Hematocrit (Bld) [Volume fraction] 47.7 % High 36.3 - 47.1 % [place] Hemoglobin (Bld) [Mass/Vol] 15.8 g/dL High 11.9 - 15.1 g/dL [place] Immature granulocytes (Bld) [#/Vol] 1 % High 0 [place] Immature granulocytes (Bld) [#/Vol] 0.05 10*3/uL [place] Interpretation and review of laboratory results Abnormal [place] Lymphocytes (Bld) [#/Vol] 2.71 10*3/uL [place] Lymphocytes/100 WBC (Bld) 28 % 24 - 43 % [place] MCH (RBC) [Entitic mass] 31.2 pg 25.2 - 33.5 pg [place] MCHC (RBC) [Mass/Vol] 33.1 g/dL 28.4 - 34.8 g/dL [place] MCV (RBC) [Entitic vol] 94.1 fL 82.6 - 102.9 fL [place] Monocytes (Bld) [#/Vol] 0.60 10*3/uL [place] Monocytes/100 WBC (Bld) 6 % 3 - 12 % [place] Platelet mean volume (Bld) [Entitic vol] 10.0 fL 8.1 - 13.5 fL [place] Platelets (Bld) [#/Vol] 359 10*3/uL [place] Platelets (Bld) [#/Vol] NOT REPORTED [place] RBC (Bld) [#/Vol] 5.07 10*6/uL 3.95 - 5.11 m/uL [place] RBC morphology finding Nom (Bld) NOT REPORTED [place] Segmented neutrophils/100 WBC (Bld) 61 % 36 - 65 % [place] Segs Absolute 6.16 [place] WBC (Bld) [#/Vol] 0.0 10*3/uL 0.0 per 100 WBC [place] WBC (Bld) [#/Vol] 9.9 10*3/uL [place] WBC Morphology NOT REPORTED [place], [place] Comprehensive Metabolic Pane goyo 08-05-2019 Albumin [Mass/Vol] 4.4 g/dL 3.5 - 5.2 g/dL [place] Albumin/Globulin [Mass ratio] 1.4 {ratio} [place] ALP [Catalytic activity/Vol] 70 U/L 35 - 104 U/L [place] ALT [Catalytic activity/Vol] 10 U/L 5 - 33 U/L [place] Anion gap [Moles/Vol] 12 mmol/L 9 - 17 mmol/L [place] AST [Catalytic activity/Vol] 9 U/L <32 [place] Bilirubin Ql (U) 0.27 mg/dL Low 0.3 - 1.2 mg/dL [place] Bun/Cre Ratio 16 [place] Calcium [Mass/Vol] 9.1 mg/dL 8.6 - 10. 4 mg/dL [place] Chloride [Moles/Vol] 101 mmol/L 98 - 10 7 mmol/L [place] CO2 [Moles/Vol] 23 mmol/L 20 - 31 mmol/L [place] Creatinine [Mass/Vol] 0.56 mg/dL 0.5 - 0.9 mg/dL [place] GFR >60 >60 mL/min [place] GFR Non- >60 >60 mL/min [place] Glucose [Mass/Vol] 133 mg/dL High 70 - 99 mg/dL [place] Interpretation and review of laboratory results Abnormal [place] Potassium [Moles/Vol] 4.4 mmol/L 3.7 - 5.3 mmol/L [place] Protein [Mass/Vol] 7.5 g/dL 6.4 - 8.3 g/dL [place] Sodium [Moles/Vol] 136 mmol/L 135 - 144 mmol/L [place] Urea nitrogen [Mass/Vol] 9 mg/dL 6 - 20 mg/dL [place] Metabolic Panelon 08-05-2019 GFR/1.73 sq M predicted among non-blacks MDRD (S/P/Bld) [Vol rate/Area] [place] Comment on above: Average GFR for 30-3 9 years old: 107 mL/min/1.73sq m Chronic Kidney Disease: <60 mL/min/1.73sq m Kidney failure: <15 mL/min/1.73sq m eGFR calculated using average adult body mass. Additional eGFR calculator available at: http://www.enGene/multiple_crcl_2012.htm Stage 1: Some kidney damage normal GFR Stage 2: Mild kidney damage GFR 60-89 Stage 3: Moderate kidney damage GFR 30-59 Stage 4: Severe kidney damage GFR 15-29 Stage 5: Severe kidney damage GFR <15 ESRD - chronic treatment by dialysis or transplant T4on 08-05-2019 T4, Total 7 ug/dL 4.5 - 12 ug/dL [place] TSH without Reflexon 020 TSH Qn 1.85 m[IU]/L [place] Vital Signs Date Time Vital Sign Value Performing Clinician Facility 10-06-2024 09:07-0400 Body height 157.5 cm Waldo Sow DO Work Phone: [facility] 10-06-2024 09:07-0400 Body mass index (BMI) [Ratio] 48.4 kg/m2 Waldo Sow DO Work Phone: [facility] 10-06-2024 09:07-0400 Body weight 120.02 kg Waldo Sow DO Work Phone: [facility] 10-06-2024 09:07-0400 Diastolic blood pressure 76 mm[Hg] Waldo Sow DO Work Phone: [facility] 10-06-2024 09:07-0400 Heart rate 96 /min Waldo Sow DO Work Phone: [facility] 10-06-2024 09:07-0400 Systolic blood pressure 124 mm[Hg] Waldo Sow DO Work Phone: [facility] 09-09-2024 13:55-0400 Body temperature 97.7 [degF] Aldenfatou BenitesBarrington TIE HACKER Work Phone: [facility] 09-09-2024 13:55-0400 Diastolic blood pressure 82 mm[Hg] Alden Barrington TIE HACKER Work Phone: [facility] 09-09-2024 13:55-0400 Heart rate 78 /min Alden Barrington TIE HACKER Work Phone: [facility] 09-09-2024 13:55-0400 SaO2% (BldA) [Mass fraction] 98 % Adlen Diane TIE HACKER Work Phone: [facility] 09-09-2024 13:55-0400 Systolic blood pressure 118 mm[Hg] Alden Diane TIE HACKER Work Phone: [facility] 09-09-2024 13:54-0400 Body mass index (BMI) [Ratio] 48.79 kg/m2 Alden Barrington TIE HACKER Work Phone: [facility] 09-09-2024 13:54-0400 Body weight 121 kg Alden Diane TIE HACKER Work Phone: [facility] 07-14-2024 11:12-0500 Body height 157.5 cm Nigel Lawson MD Work Phone: [facility] 07-14-2024 11:12-0500 Body mass index (BMI) [Ratio] 48.83 kg/m2 Nigel Lawosn MD Work Phone: [facility] 07-14-2024 11:12-0500 Body weight 121.11 kg Nigel Lawson MD Work Phone: [facility] 07-14-2024 11:12-0500 Diastolic blood pressure 80 mm[Hg] Nigel Lawson MD Work Phone: [facility] 07-14-2024 11:12-0500 Heart rate 88 /min Nigel Lawson MD Work Phone: [facility] 07-14-2024 11:12-0500 Respiratory rate 18 /min Nigel Lawson MD [facility] [facility] 07-14-2024 11:12-0500 SaO2% (BldA) [Mass fraction] 97 % Nigel Lawsno MD Work Phone: [facility] 07-14-2024 11:12-0500 Systolic blood pressure 120 mm[Hg] Nigel Lawson MD Work Phone: [facility] 06-04-2024 17:12-0500 Diastolic blood pressure 101 mm[Hg] Bill Dan DO Work Phone: [facility] 06-04-2024 17:12-0500 Heart rate 86 /min Bill Dan DO Work Phone: [facility] 06-04-2024 17:12-0500 Respiratory rate 26 /min Bill Dan DO Work Phone: [facility] 06-04-2024 17:12-0500 SaO2% (BldA) [Mass fraction] 98 % Bill Colemanley DO Work Phone: [facility] 06-04-2024 17:12-0500 Systolic blood pressure 167 mm[Hg] Bill Colemanley DO Work Phone: [facility] 06-04-2024 14:30-0500 Body height 154.94 cm Bill Colemanley DO Work Phone: [facility] 06-04-2024 14:30-0500 Body temperature 97.8 [degF] Bill Colemanley DO Work Phone: [facility] 06-04-2024 14:30-0500 Body weight 124.2 kg Bill Colemanley DO Work Phone: [facility] 03-31-2024 13:49-0400 Body height 160.02 cm DO Bill Colemanley Work Phone: [facility] 03-31-2024 13:49-0400 Body mass index (BMI) [Ratio] 46.2 kg/m2 DO Bill Colemanley Work Phone: [facility] 03-31-2024 13:49-0400 Body weight 118.38 kg DO Bill Colemanley Work Phone: [facility] 03-31-2024 13:49-0400 Diastolic blood pressure 72 mm[Hg] DO Bill Colemanley Work Phone: [facility] 03-31-2024 13:49-0400 Heart rate 82 /min DO Bill Colemanley Work Phone: [facility] 03-31-2024 13:49-0400 SaO2% (BldA) [Mass fraction] 96 % DO Bill Colemanley Work Phone: [facility] 03-31-2024 13:49-0400 Systolic blood pressure 117 mm[Hg] DO Bill Dan Work Phone: [facility] 01-31-2024 09:00-0400 Diastolic blood pressure 91 mm[Hg] DO Bill Dan Work Phone: [facility] 01-31-2024 09:00-0400 Heart rate 67 /min DO Bill Dan Work Phone: [facility] 01-31-2024 09:00-0400 Respiratory rate 20 /min DO Bill Dan Work Phone: [facility] 01-31-2024 09:00-0400 SaO2% (BldA) [Mass fraction] 98 % DO Bill Dan Work Phone: [facility] 01-31-2024 09:00-0400 Systolic blood pressure 129 mm[Hg] DO Bill Dan Work Phone: [facility] 01-31-2024 08:00-0400 Body temperature 98.5 [degF] DO Bill Dan Work Phone: [facility] 01-31-2024 08:00-0400 Inhaled oxygen flow rate 8 L/min DO Bill Dan Work Phone: [facility] 01-31-2024 06:39-0400 Body height 157.48 cm DO Bill Dan Work Phone: [facility] 01-31-2024 06:39-0400 Body weight 113.39 kg DO Bill Dan Work Phone: [facility] 10-01-2023 16:05-0400 Body height 157.5 cm Sveta Garnica BELT CLEANER-RADIO FREQUENCY TECHNICIAN Work Phone: [facility] 10-01-2023 16:05-0400 Body mass index (BMI) [Ratio] 45.54 kg/m2 Sveta Garnica BELT CLEANER-RADIO FREQUENCY TECHNICIAN Work Phone: [facility] 10-01-2023 16:05-0400 Body weight 112.95 kg Sveta Garnica BELT CLEANER-RADIO FREQUENCY TECHNICIAN Work Phone: [facility] 10-01-2023 16:05-0400 Diastolic blood pressure 80 mm[Hg] Sveta Garnica BELT CLEANER-RADIO FREQUENCY TECHNICIAN Work Phone: [facility] 10-01-2023 16:05-0400 Heart rate 73 /min Sveta Garnica BELT CLEANER-RADIO FREQUENCY TECHNICIAN Work Phone: [facility] 10-01-2023 16:05-0400 Systolic blood pressure 108 mm[Hg] Sveta Garnica BELT CLEANER-RADIO FREQUENCY TECHNICIAN Work Phone: [facility] 08-07-2023 12:20-0500 Diastolic blood pressure 70 mm[Hg] [facility] 08-07-2023 12:20-0500 Heart rate 75 /min [facility] 08-07-2023 12:20-0500 Respiratory rate 16 /min [facility] 08-07-2023 12:20-0500 SaO2% (BldA) [Mass fraction] 98 % [facility] 08-07-2023 12:20-0500 Systolic blood pressure 128 mm[Hg] [facility] 08-07-2023 09:14-0500 Body height 152.4 cm [facility] 08-07-2023 09:14-0500 Body temperature 97.5 [degF] [facility] 08-07-2023 09:14-0500 Body weight 112.9 kg [facility] 07-09-2023 08:15-0500 Body weight 113.4 kg Mely Steinberg MD Work Phone: [facility] 07-09-2023 08:15-0500 Diastolic blood pressure 82 mm[Hg] Mely Steinberg MD Work Phone: [facility] 07-09-2023 08:15-0500 Systolic blood pressure 132 mm[Hg] Mely Steinberg MD Work Phone: [facility] 06-24-2023 12:17-0500 Diastolic blood pressure 79 mm[Hg] DO Bill Dan Work Phone: [facility] 06-24-2023 12:17-0500 Heart rate 68 /min DO Bill Dan Work Phone: [facility] 06-24-2023 12:17-0500 Respiratory rate 16 /min DO Bill Dan Work Phone: [facility] 06-24-2023 12:17-0500 SaO2% (BldA) [Mass fraction] 97 % DO Bill Dan Work Phone: [facility] 06-24-2023 12:17-0500 Systolic blood pressure 127 mm[Hg] DO Bill Dan Work Phone: [facility] 06-24-2023 11:47-0500 Inhaled oxygen flow rate 4 L/min DO Bill Dan Work Phone: [facility] 06-24-2023 10:17-0500 Body height 157.48 cm DO Bill Dan Work Phone: [facility] 06-24-2023 10:17-0500 Body temperature 98.5 [degF] DO Bill Dan Work Phone: [facility] 06-24-2023 10:17-0500 Body weight 116.11 kg DO Bill Dan Work Phone: [facility] 06-05-2023 09:15-0500 Body height 160.02 cm Bill Dan Other [employer] Other 06-05-2023 09:15-0500 Body mass index (BMI) [Ratio] 44.99 kg/m2 Bill Dan Other [employer] Other 06-05-2023 09:15-0500 Body temperature 97.4 [degF] Bill Dan Other [employer] Other 06-05-2023 09:15-0500 Body weight 115.21 kg Bill Dan Other [employer] Other 06-05-2023 09:15-0500 Diastolic blood pressure 76 mm[Hg] Bill Dan Other [employer] Other 06-05-2023 09:15-0500 Respiratory rate 18 /min Bill Dan Other [facility] Other 06-05-2023 09:15-0500 SaO2% (BldA) [Mass fraction] 97 % Bill Dan Other [facility] Other 06-05-2023 09:15-0500 Systolic blood pressure 124 mm[Hg] Bill Dan Other [facility] Other 04-29-2023 12:52-0500 Body height 154.94 cm DO Bill Dan Work Phone: [facility] 04-29-2023 12:52-0500 Body temperature 98.3 [degF] DO Bill Dan Work Phone: [facility] 04-29-2023 12:52-0500 Body weight 115.65 kg DO Bill Dan Work Phone: [facility] 04-29-2023 12:52-0500 Diastolic blood pressure 88 mm[Hg] DO Bill Dan Work Phone: [facility] 04-29-2023 12:52-0500 Heart rate 86 /min DO Bill Dan Work Phone: [facility] 04-29-2023 12:52-0500 Respiratory rate 20 /min DO Bill Dan Work Phone: [facility] 04-29-2023 12:52-0500 SaO2% (BldA) [Mass fraction] 98 % DO Bill Dan Work Phone: [facility] 04-29-2023 12:52-0500 Systolic blood pressure 148 mm[Hg] DO Bill Dan Work Phone: [facility] 10-02-2022 14:30-0400 Body height 160.02 cm Bill Dan Other [employer] Other 10-02-2022 14:30-0400 Body mass index (BMI) [Ratio] 43.93 kg/m2 Bill Dan Other [employer] Other 10-02-2022 14:30-0400 Body weight 112.49 kg Bill Dan Other [employer] Other 10-02-2022 14:30-0400 Diastolic blood pressure 86 mm[Hg] Bill Dan Other [employer] Other 10-02-2022 14:30-0400 Respiratory rate 18 /min Bill Dan Other [employer] Other 10-02-2022 14:30-0400 SaO2% (BldA) [Mass fraction] 98 % Bill Dan Other [employer] Other 10-02-2022 14:30-0400 Systolic blood pressure 132 mm[Hg] Bill Dan Other [employer] Other 04-04-2022 17:55-0400 Diastolic blood pressure 87 mm[Hg] DO Jose Lan Work Phone: [facility] 04-04-2022 17:55-0400 Heart rate 66 /min DO Jose Lan Work Phone: [facility] 04-04-2022 17:55-0400 Respiratory rate 18 /min DO Jose Lan Work Phone: [facility] 04-04-2022 17:55-0400 SaO2% (BldA) [Mass fraction] 96 % DO Jose Lan Work Phone: [facility] 04-04-2022 17:55-0400 Systolic blood pressure 136 mm[Hg] DO Jose Lan Work Phone: [facility] 04-04-2022 16:25-0400 Body height 157.48 cm DO Jose Lan Work Phone: [facility] 04-04-2022 16:25-0400 Body temperature 98.3 [degF] DO Jose Lan Work Phone: [facility] 04-04-2022 16:25-0400 Body weight 105.23 kg DO Jose Lan Work Phone: [facility] 03-27-2022 15:51-0400 Body height 160.02 cm DO Jose Lan Work Phone: [facility] 03-27-2022 15:51-0400 Body temperature 98.1 [degF] DO Jose Lan Work Phone: [facility] 03-27-2022 15:51-0400 Body weight 104.6 kg DO Jose Lan Work Phone: [facility] 03-27-2022 15:51-0400 Diastolic blood pressure 85 mm[Hg] DO Jose Lan Work Phone: [facility] 03-27-2022 15:51-0400 Heart rate 73 /min DO Jose Lan Work Phone: [facility] 03-27-2022 15:51-0400 Respiratory rate 18 /min DO Jose Lan Work Phone: [facility] 03-27-2022 15:51-0400 SaO2% (BldA) [Mass fraction] 97 % DO Jose Lan Work Phone: [facility] 03-27-2022 15:51-0400 Systolic blood pressure 140 mm[Hg] DO Jose Lan Work Phone: [facility] 01-31-2022 10:50-0400 Body height 157.48 cm Bill Dan Work Phone: [facility] 250 DO Work Phone: 01-31-2022 10:50-0400 Body mass index (BMI) [Ratio] 43.71 kg/m2 Bill Dan Work Phone: [facility] 250 DO Work Phone: 01-31-2022 10:50-0400 Body surface area Derived from formula 2.06 m2 Bill Dan Work Phone: [facility] 250 DO Work Phone: 01-31-2022 10:50-0400 Body weight 108.41 kg Bill Dan Work Phone: [facility] 250 DO Work Phone: 01-31-2022 10:50-0400 Diastolic blood pressure 70 mm[Hg] Bill Dan Work Phone: [facility] 250 DO Work Phone: 01-31-2022 10:50-0400 Heart rate 66 /min Bill Dan Work Phone: [facility] [facility] DO Work Phone: 01-31-2022 10:50-0400 Systolic blood pressure 112 mm[Hg] Bill Dan Work Phone: [facility] [facility] DO Work Phone: 01-24-2022 17:00-0400 Body height 160.02 cm Bill Dan Other [facility] Other 01-24-2022 17:00-0400 Body mass index (BMI) [Ratio] 42.86 kg/m2 Bill Dan Other [employer] Other 01-24-2022 17:00-0400 Body weight 109.77 kg Bill Dan Other [employer] Other 01-24-2022 17:00-0400 Diastolic blood pressure 77 mm[Hg] Bill Dan Other [employer] Other 01-24-2022 17:00-0400 Respiratory rate 18 /min Bill Dan Other [employer] Other 01-24-2022 17:00-0400 SaO2% (BldA) [Mass fraction] 98 % Bill Dan Other [employer] Other 01-24-2022 17:00-0400 Systolic blood pressure 118 mm[Hg] Bill Dan Other [employer] Other 01-22-2022 13:35-0400 Diastolic blood pressure 64 mm[Hg] DO Jose Lan Work Phone: [facility] 01-22-2022 13:35-0400 Heart rate 69 /min DO Jose Lan Work Phone: [facility] 01-22-2022 13:35-0400 SaO2% (BldA) [Mass fraction] 97 % DO Jose Lan Work Phone: [facility] 01-22-2022 13:35-0400 Systolic blood pressure 115 mm[Hg] DO Jose Lan Work Phone: [facility] 01-22-2022 12:10-0400 Body temperature 98 [degF] DO Jose Lan Work Phone: [facility] 01-22-2022 12:10-0400 Respiratory rate 16 /min DO Jose Lan Work Phone: [facility] 01-22-2022 05:56-0400 Body weight 106.8 kg DO Jose Lan Work Phone: [facility] 01-20-2022 04:19-0400 Body height 157.48 cm DO Jose Lan Work Phone: [facility] 01-20-2022 00:00-0400 65 1 Bill Dan Work Phone: [facility] [facility] DO Work Phone: Comment on above: [id number] 07-13-2021 10:30-0500 Body height 160.02 cm Bill Dan Other [employer] Other 07-13-2021 10:30-0500 Body mass index (BMI) [Ratio] 46.8 kg/m2 Bill Dan Other [employer] Other 07-13-2021 10:30-0500 Body weight 119.84 kg Bill Dan Other [employer] Other 07-13-2021 10:30-0500 Diastolic blood pressure 84 mm[Hg] Bill Dan Other [employer] Other 07-13-2021 10:30-0500 Respiratory rate 18 /min Bill Dan Other [employer] Other 07-13-2021 10:30-0500 SaO2% (BldA) [Mass fraction] 95 % Bill aDn Other [employer] Other 07-13-2021 10:30-0500 Systolic blood pressure 125 mm[Hg] Bill Dan Other [facility] Other 01-23-2021 20:02-0400 Diastolic blood pressure 68 mm[Hg] Neelima Dutton DO Work Phone: [email or web address] Work Phone: 01-23-2021 20:02-0400 Heart rate 89 /min Neelima Dutton DO Work Phone: [employer] Work Phone: 01-23-2021 20:02-0400 Respiratory rate 17 /min Neelima Dutton DO Work Phone: [employer] Work Phone: 01-23-2021 20:02-0400 SaO2% (BldA) [Mass fraction] 97 % Neelima Dutton DO Work Phone: [employer] Work Phone: 01-23-2021 20:02-0400 Systolic blood pressure 141 mm[Hg] Neelima Dutton DO Work Phone: [employer] Work Phone: 01-23-2021 19:59-0400 Body temperature 98.71 [degF] Neelima Dutton DO Work Phone: [employer] Work Phone: 04-03-2020 22:45-0500 BP Diastolic 91 mm[Hg] [facility] [place] 04-03-2020 22:45-0500 BP Systolic 133 mm[Hg] [facility] [place] 04-03-2020 22:45-0500 Pulse (Heart Rate) 86 /min [facility] [place] [place] 04-03-2020 22:45-0500 Pulse Oximetry 95 % Adela [facility] [place] [facility] [place] 04-03-2020 22:45-0500 Respiratory Rate 16 /min Adela Swenson [facility] [place] 04-03-2020 10:44-0500 BMI (Body Mass Index) 40.23 kg/m2 [facility] [place] 04-03-2020 10:44-0500 Body Temperature 97.3 [degF] Adela [facility] [place] 04-03-2020 10:44-0500 Body weight 93.44 kg Adela Clemons [facility] [place] , [place] 04-03-2020 10:44-0500 Height 152.4 cm Adela Clemons [facility] [place] , [place] 03-29-2020 16:55-0400 BMI (Body Mass Index) 41.01 kg/m2 [facility] [place], [place] 03-29-2020 16:55-0400 Body Temperature 98.01 [degF] [facility] [place] 03-29-2020 16:55-0400 Body weight 95.25 kg [facility] [place] , [place] 03-29-2020 16:55-0400 BP Diastolic 97 mm[Hg] [facility] [place] , [place] 03-29-2020 16:55-0400 BP Systolic 130 mm[Hg] [facility] [place] , [place] 03-29-2020 16:55-0400 Pulse (Heart Rate) 94 /min [facility], [place] 03-29-2020 16:55-0400 Pulse Oximetry 97 % [facility] , [place] 03-29-2020 16:55-0400 Respiratory Rate 22 /min [facility] [place] 02-23-2020 12:15-0400 BP Diastolic 75 mm[Hg] [facility] [place] , [place] 02-23-2020 12:15-0400 BP Systolic 143 mm[Hg] [facility] [place] 02-23-2020 10:40-0400 Pulse Oximetry 95 % [facility] [place] 02-23-2020 07:41-0400 BMI (Body Mass Index) 41.99 kg/m2 [facility] [place] 02-23-2020 07:41-0400 Body Temperature 97.39 [degF] [facility] [place] 02-23-2020 07:41-0400 Body weight 97.52 kg [facility] [place] 02-23-2020 07:41-0400 Pulse (Heart Rate) 89 /min Tonie Clemons [facility], [place] 02-23-2020 07:41-0400 Respiratory Rate 18 /min Tonie Clemons [facility] 02-21-2020 10:15-0400 BP Diastolic 78 mm[Hg] Sarthak Agata Clemons [facility] , [place] 02-21-2020 10:15-0400 BP Systolic 124 mm[Hg] Sarthak Agata Clemons [facility] , [place] 02-21-2020 10:15-0400 Pulse Oximetry 99 % Sarthak Agata Clemons [facility] , [place] 02-21-2020 08:57-0400 BMI (Body Mass Index) 41.99 kg/m2 Sarthak Agata Clemons [facility], [place] 02-21-2020 08:57-0400 Body Temperature 98.2 [degF] Sarthak Agata Clemons [facility] , [place] 02-21-2020 08:57-0400 Body weight 97.52 kg Sarthak Agata Clemons [facility] , [place] 02-21-2020 08:57-0400 Height 152.4 cm Sarthak Agata [facility] [place] 02-21-2020 08:57-0400 Pulse (Heart Rate) 92 /min Sarthak Agata [facility] [place] 02-21-2020 08:57-0400 Respiratory Rate 18 /min [facility]ak Agata [facility] [place] Encounters Encounter Date Encounter Type Care Provider Facility Start: 01-27-2025 ambulatory Bill Koehler y:[facility] Start: 10-06-2024 End: 10-06-2024 Office outpatient visit 25 minutes Waldo Sow Work Phone: [facility] Comment on above: ASHD (arteriosclerot ic heart disease); Type 2 diabetes mellitus with other specified complication, with long-term current use of insulin; Current every day smoker; BMI 45.0-49.9, adult (Multi); Localized edema; Syndrome X (cardiac) Start: 10-06-2024 End: 10-06-2024 ambulatory [facility] Amb[facility] Start: 09-11-2024 End: 09-11-2024 Telephone encounter Nigel Lawson MD Work Phone: [facility] Comment on above: Med Refill Start: 09-09-2024 End: 09-09-2024 ambulatory ALDEN LIN Not Available Start: 09-09-2024 End: 09-09-2024 Office outpatient visit 25 minutes Alden Lin TIE HACKER Work Phone: [facility] Comment on above: Bronchitis with asth ma, acute (CMS/HCC) (Primary Dx); Cough, unspecified type Start: 08-30-2024 End: 08-31-2024 Refill Nigel Lawson MD Work Phone: [facility] Comment on above: Type 2 diabetes jodee itus with hyperglycemia, with long-term current use of insulin (CMS/HCC) (Primary Dx) Start: 07-14-2024 End: 07-14-2024 Bamboo flowsheet Nigel Lawson MD Work Phone: [facility] Start: 07-14-2024 End: 07-14-2024 Bamboo flowsheet Nigel Lawson MD Work Phone: [facility] Start: 07-14-2024 End: 07-14-2024 Office outpatient visit 25 minutes Nigel Lawson MD Work Phone: [facility] Comment on above: Type 2 diabetes [...] patient visit Bill Dan DO Work Phone: [facility] Work Phone: Start: 04-28-2024 Registered Recurring Bill schaeffer DO Work Phone: [facility] Start: 04-25-2024 End: 04-26-2024 Refill Nigel Lawson MD Work Phone: [facility] Comment on above: Type 2 diabetes jodee itus with hyperglycemia, with long-term current use of insulin (CMS/HCC) (Primary Dx) Start: 03-31-2024 End: 03-31-2024 ambulatory DO Bill Dan Work Phone: [facility] Work Phone: Start: 03-31-2024 End: 03-31-2024 Patient encounter procedure DO Bill Dan Work Phone: [facility] Physician [facility] Work Phone: Start: 03-31-2024 End: 03-31-2024 Patient encounter procedure DO Bill Dan Work Phone: [facility] Start: 03-31-2024 End: 03-31-2024 ambulatory DO Bill Dan Work Phone: [facility] Work Phone: Start: 03-26-2024 End: 03-27-2024 Refill Nigel Lawson MD Work Phone: [facility] Comment on above: Type 2 diabetes jodee itus with hyperglycemia, with long-term current use of insulin (CMS/HCC) (Primary Dx) Start: 03-25-2024 Registered Recurring DO Bill Dan Work Phone: [facility] Start: 02-19-2024 Non-patient / Non-visit DO Marshall Dan Work Phone: [facility] Physician [facility] Work Phone: Start: 01-31-2024 End: 01-31-2024 External Result Encounter Mely Steinberg MD Work Phone: [facility] External Department Unsolicited Start: 01-31-2024 End: 01-31-2024 External Result Encounter Mely Steinberg MD Work Phone: [facility] External Department Unsolicited Start: 01-31-2024 End: 01-31-2024 Admission to same day surgery center DO Bill Dna Work Phone: [facility] [place] Start: 01-31-2024 End: 01-31-2024 ambulatory DO Bill Dan Work Phone: [facility] Work Phone: Start: 01-28-2024 Registered Recurring DO Bill Dan Work Phone: [facility] Start: 01-21-2024 End: 01-21-2024 External Result Encounter Mely Steinberg MD Work Phone: [facility] External Department Unsolicited Start: 01-21-2024 End: 01-21-2024 External Result Encounter Mely tSeinberg MD Work Phone: [facility] External Department Unsolicited Start: 01-21-2024 End: 01-21-2024 ambulatory DO Bill Dan Work Phone: [facility] Work Phone: Start: 01-21-2024 End: 01-21-2024 Patient encounter procedure DO Bill Dan Work Phone: [facility]Pre-Surgical Testing Work Phone: Start: 01-09-2024 Non-patient / Non-visit DO Marshall Dan Work Phone: [facility] Physician Group-[facility] [place] Work Phone: Start: 12-31-2023 Registered Recurring DO Bill Dan Work Phone: [facility] Start: 10-18-2023 End: 10-18-2023 ambulatory NON STAFF [facility] Work Phone: Start: 10-18-2023 End: 10-18-2023 Patient encounter procedure [facility] [place] Work Phone: Start: 10-15-2023 [facility] Start: 10-15-2023 End: 10-15-2023 ambulatory MELY STEINBERG Not Available Start: 10-01-2023 End: 10-01-2023 Office outpatient visit 15 minutes Sveta Garnica BELT CLEANER-RADIO FREQUENCY TECHNICIAN Work Phone: [facility] Comment on above: Syndrome X (cardiac) (CMS-HCC) (Primary Dx); Type 2 diabetes mellitus without complication, with long-term current use of insulin (Multi); Mild CAD; Mixed hyperlipidemia; Essential hypertension; Current every day smoker; BMI 45.0-49.9, adult (Multi); NSTEMI, initial episode of care (Multi); Pre-operative clearance Start: 10-01-2023 End: 10-01-2023 Preoperative state Sveta Garnica BELT CLEANER-RADIO FREQUENCY TECHNICIAN Work Phone: [facility] Work Phone: Start: 08-07-2023 End: 08-07-2023 Emergency department patient visit [facility] Work Phone: Start: 07-09-2023 End: 07-09-2023 Patient encounter status Mely Steinberg MD Work Phone: [facility] Start: 07-09-2023 End: 07-09-2023 Periodic preventive med est patient 18-39 yrs Mely Steinberg MD Work Phone: [facility] Comment on above: Screening for malign ant neoplasm of cervix; Encounter for gynecological examination without abnormal finding; Encounter for screening mammogram for malignant neoplasm of breast; Abnormal vaginal bleeding Start: 07-04-2023 End: 07-04-2023 ambulatory Bill Dan Other [employer] Other Start: 07-04-2023 Telephone encounter Bill Dan [facility] [place] Start: 07-01-2023 End: 07-01-2023 ambulatory Kendrick Joya Other [employer] Other Start: 07-01-2023 Telephone encounter Kendrick [facility] Start: 06-24-2023 Non-patient / Non-visit DO Marshall Dan Work Phone: [facility] Work Phone: Start: 06-19-2023 End: 06-19-2023 ambulatory DO Bill Dan Work Phone: [facility] Work Phone: Start: 06-19-2023 End: 06-19-2023 Patient encounter procedure DO Bill Dan Work Phone: [facility] [place] Work Phone: Start: 06-11-2023 End: 06-11-2023 ambulatory Kendrick Joya Other [employer] Other Start: 06-11-2023 Telephone encounter Kendrick Garrett Construction Services Technician Start: 06-05-2023 End: 06-05-2023 ambulatory Bill Dan Other [facility] Other Start: 06-05-2023 Office outpatient vi sit 25 minutes Bill Dan [facility] [place] Start: 06-05-2023 End: 06-05-2023 Patient encounter procedure DO Bill Dan Work Phone: [facility] [place] Work Phone: Start: 04-29-2023 End: 04-29-2023 Emergency department patient visit DO Bill Dan Work Phone: [facility]-Emergency Room Work Phone: Start: 03-25-2023 Registered Recurring DO Bill Dan Work Phone: [facility] Start: 02-05-2023 End: 02-05-2023 ambulatory Bill Dan Other [employer] Other Start: 02-05-2023 Telephone encounter Bill BAHENA [facility] [place] Start: 10-02-2022 Office outpatient vi sit 25 minutes Bill ADAMS [facility] [place] Start: 10-02-2022 End: 10-02-2022 ambulatory DO Bill Dan Work Phone: [facility] Work Phone: Start: 10-02-2022 End: 10-02-2022 Patient encounter procedure DO Bill Dan Work Phone: [facility] Start: 04-30-2022 End: 04-30-2022 ambulatory Bill Dan Other [employer] Other Start: 04-30-2022 Telephone encounter Bill Garrett [facility] [place] Start: 04-10-2022 End: 04-10-2022 ambulatory Bill Dan Other [employer] Other Start: 04-10-2022 Telephone encounter Bill Garrett [facility] [place] Start: 04-04-2022 End: 04-04-2022 Emergency department patient visit DO Jose Lan Work Phone: [facility]-Emergency Room Start: 03-28-2022 End: 03-28-2022 ambulatory Bill Dan Other [employer] Other Start: 03-28-2022 Telephone encounter Bill Garrett [facility] [place] Start: 03-27-2022 End: 03-27-2022 Emergency department patient visit DO Jose Lan Work Phone: [facility]-Emergency Room Start: 09-15-2022 Rx Renewal Bill reyes Work Phone: -[facility]-[place] 250 DO Work Phone: Start: 01-31-2022 Office outpatient vi sit 25 minutes Bill Dan Work Phone: [facility]-[place] 250 DO Work Phone: Start: 01-31-[address] Waldo Sow Fac ility: Start: 01-24-2022 End: 01-24-2022 ambulatory Bill Dan Other [employer] Other Start: 01-24-2022 Office outpatient vi sit 25 minutes [facility] Start: 01-22-2022 ambulatory Waldo Varma II Faci lity:[id number] Start: 01-21-2022 ambulatory Waldo Varma II Faci lity:[id number] Start: 01-20-2022 End: 01-22-2022 Evaluation and management of inpatient DO Jose Lan Work Phone: [facility] Start: 01-20-2022 ambulatory Waldo Varma II Faci lity:[id number] Start: 01-19-2022 End: 01-20-2022 ambulatory ANDERS BHARDWAJ Facility:H1 Start: 11-07-2021 End: 11-08-[address] SANJEEV HAND Facility:H1 Start: 10-13-2021 End: 10-13-2021 ambulatory Bill Dan Other [employer] Other Start: 10-13-2021 Telephone encounter Bill Garrett [facility] Medicine [place] Start: 08-14-2021 End: 08-14-2021 ambulatory Bill Dan Other [employer] Other Start: 08-14-2021 Telephone encounter Bill Garrett [facility] Medicine [place] Start: 07-13-2021 End: 07-13-2021 ambulatory Bill Dan Other [employer] Other Start: 07-13-2021 Office outpatient ne w 45 minutes Bill Dan [facility] [place] Start: 07-11-2021 End: 07-11-[address] ADELA TAVEARS Facility:H1 Start: 03-06-2021 End: 03-06-[address] SANJEEV HAND Facility:H1 Start: 01-23-2021 Emergency department patient visit SANJEEV [facility] Start: 01-23-2021 End: 01-24-2021 Emergency department patient visit Neelima Dutton DO Work Phone: [facility] ED Comment on above: Left flank pain (Jolynn paul Dx) Start: 10-06-2020 End: 10-06-2020 Emergency department patient visit SANJEEV [facility] Start: 04-03-2020 End: 04-04-2020 Emergency department patient visit SANJEEV [facility] Start: 04-03-2020 End: 04-03-2020 Emergency department patient visit Adela Swenson Work Phone: [facility] ED Comment on above: Major depressive epi sode (Primary Dx); Suicidal ideation Start: 03-29-2020 Emergency department patient visit [facility] Start: 03-29-2020 End: 03-29-2020 Emergency department patient visit [facility] ED Comment on above: Opiate withdrawal (H CC) (Primary Dx) Start: 02-23-2020 End: 02-23-2020 Emergency department patient visit TONIE ARZOLA [facility] Start: 02-23-2020 End: 02-23-2020 Emergency department patient visit Tonie Arzola Work Phone: [facility] ED Comment on above: Abdominal pain, unsp ecified abdominal location (Primary Dx); Non-intractable vomiting with nausea, unspecified vomiting type Start: 02-21-2020 End: 02-21-2020 Emergency department patient visit SARTHAK [facility] Start: 02-21-2020 End: 02-21-2020 Emergency department patient visit Sarthak Parmar Work Phone: [facility] ED Comment on above: Colitis (Primary Dx) Start: 08-10-2019 End: 08-10-2019 Subsequent hospital visit by physician [facility] Comment on above: Arrived Start: 08-05-2019 End: 08-05-2019 Subsequent hospital visit by physician Sr Hand [facility] Start: 04-15-2017 End: 04-16-2017 Patient encounter procedure LAYO BILLS Facility:[facility] Procedures Date Procedure Procedure Detail Performing Clinician Start: 09-09-2024 Iaadiadoo influenza Rac fatou Lin TIE HACKER Work Phone: Start: 07-14-2024 Gluc bld gluc [...] routine ecg w/le ast 12 lds w/i&r Sveta Garnica [employer]ER-[employer]Y TECHNICIAN Work Phone: Start: 08-19-2023 Mammography Sveta castellon [employer]QUENCY TECHNICIAN Work Phone: Start: 07-09-2023 Microscopic observat ion [Identifier] in Cervix by Cyto stain Nigel Lawson MD Work Phone: Start: 07-09-2023 THINPREP TIS PAP AND HPV MRNA E6/E7 Mely Steinberg MD Work Phone: Start: 06-19-2023 US scan of gallbladder DO Bill Dan Work Phone: Start: 04-04-2022 Plain chest X-ray DO Sh adarsh Lan Work Phone: Start: 01-22-2022 CL [facility] COR Angio DO S willy Lan Work Phone: Start: 01-22-2022 DO Jose Suzette rich Work Phone: Start: 01-23-2021 Urinalysis microscop [...] DO Work Phone: Start: 04-03-2020 COVID-19 SARTHAK WATT Start: 04-03-2020 COVID-19 Adela To dd Work Phone: Start: 04-03-2020 Drug screen class list a SARTHAK PARMAR Start: 04-03-2020 Urinalysis microscop ic only SARTHAK AGATA Start: 04-03-2020 Urnls dip stick/tabl et rgnt auto w/o microscopy SARTHAK AGATA Start: 04-03-2020 Drug screen class list a Adela Swenson Work Phone: Start: 04-03-2020 Urinalysis microscop ic only Adela Swenson Work Phone: Start: 04-03-2020 Urine test visual color cmprsn meths Adela Swenson Work Phone: Start: 04-03-2020 Urnls dip stick/tabl et rgnt auto w/o microscopy Adela Swenson Work Phone: Start: 04-03-2020 SUICIDE PRECAUTIONS ETA N EITCHES Start: 04-03-2020 Ecg routine ecg w/le ast 12 lds w/i&r SARTHAK EITCHES Start: 04-03-2020 EKG REPORT SARTHAK EITCH ES Start: 04-03-2020 Assay of ethanol SARTHAK E ITCHES Start: 04-03-2020 Blood count complete auto&auto difrntl wbc SARTHAK EITCHES Start: 04-03-2020 Ecg routine ecg w/le ast 12 lds w/i&r Adela Swenson Work Phone: Start: 04-03-2020 EKG REPORT Hpf Scanni ng Start: 04-03-2020 Assay of ethanol Meliss a Aime Work Phone: Start: 04-03-2020 Assay of magnesium Fatuma dipak Swenson Work Phone: Start: 04-03-2020 Assay of thyroid stimulating hormone tsh Adela Swenson Work Phone: Start: 04-03-2020 Assay of thyroxine total Adela Swenson Work Phone: Start: 04-03-2020 Blood count complete auto&auto difrntl wbc Adela Swenson Work Phone: Start: 03-29-2020 COVID-19 Te Steel nd Work Phone: Start: 03-29-2020 Drug screen class list a Te Pastrana Work Phone: Start: 03-29-2020 Urinalysis microscop ic [...] Phone: Start: 02-23-2020 Assay of lactate Clifton Arzola Work Phone: Start: 02-21-2020 Assay of lactate SARTHAK E ITCHES Start: 02-21-2020 Urinalysis microscop ic only SARTHAK EITCHES Start: 02-21-2020 Urnls dip stick/tabl et rgnt auto w/o microscopy SARTHAK EITCHES Start: 02-21-2020 Ct abdomen & pelvis w/contrast material SARTHAK EITCHES Start: 02-21-2020 Blood count complete auto&auto difrntl wbc SARTHAK AGATA Start: 02-21-2020 INSERT PERIPHERAL IV ET AN AAGTA Start: 02-21-2020 Assay of lactate Sarthakkrish Parmar Work Phone: Start: 02-21-2020 Urinalysis microscop ic only Sarthakkrish Parmar Work Phone: Start: 02-21-2020 Urnls dip stick/tabl et rgnt auto w/o microscopy Sarthak Александр Parmar Work Phone: Start: 02-21-2020 Ct abdomen & pelvis w/contrast material Sarthakkrish Parmar Work Phone: Start: 02-21-2020 Assay of lipase Satrhakkrish Parmar Work Phone: Start: 02-21-2020 Blood count complete auto&auto difrntl wbc Sarthakkrish Parmar Work Phone: Start: 08-05-2019 Assay of thyroid stimulating hormone tsh Sr Sanjeev Boswell [employer] Work Phone: Start: 08-05-2019 Assay of thyroxine total Sr Sanjeev Boswell [employer] Work Phone: Start: 08-05-2019 Blood count complete auto&auto difrntl wbc Sr Sanjeev Boswell [employer] Work Phone: Start: 08-05-2019 Comprehensive metabo lic panel Sr Sanjeev Boswell [employer] Work Phone: Start: 04-15-2017 Anes integ musc & nr v head neck&posterior trunk TONY STEINBERG Start: 04-15-2017 INCISION OF SPINAL NERVE JIANLIN BILLS Hernia repair Bill reyes Work Phone: Ligation of fallopia n tube Bill Dan Work Phone: SARS Antigen (LFIA) DO Jose Lan Work Phone: NEGATED: Highlighted row has not occurred! Total colonoscopy Bill Dan Work Phone: Plan of Treatment Date Care Activity Detail Author Start: 2033 Shingles Vaccine (1 of 2) Shingles Vaccine (1 of 2) [facility] [place], [place] Start: 2033 Zoster Vaccines (1 o f 2) Zoster Vaccines (1 of 2) [facility] Start: 07-09-2028 Screening for malignant neoplasm of cervix [facility] Start: 07-09-2026 Screening for malignant neoplasm of cervix [facility] Start: 10-13-2024 End: 10-13-2024 Patient encounter procedure 10/13/2024 10:20 AM EDT Office Visit [facility] [address] [place] [address] Nigel Lawson MD [address] [place] [address] [facility] Start: 10-06-2024 End: 10-06-2024 Patient encounter procedure 10/06/2024 9:00 AM EDT Office Visit [facility] [address] [place] [address] Waldo Sow DO [address] [place] [address] [facility] Start: 08-18-2024 Screening for malignant neoplasm of breast Mammogram [facility] Start: 07-14-2024 End: 07-14-2025 25-hydroxyvitamin D3 [Mass/volume] in Serum or Plasma Vitamin D 25 hydroxy Total Lab Routine Type 2 diabetes mellitus with hyperglycemia, with long-term current use of insulin ([facility]/HCC) Expected: 07/14/2024 (Approximate), Expires: 07/14/2025 [facility] Comment on above: Expected: 07/14/2024 (Approximate), Expires: 07/14/2025 Start: 07-14-2024 End: 07-14-2025 C-peptide C-peptide Lab Routine Type 2 diabetes mellitus with hyperglycemia, with long-term current use of insulin ([facility]/HCC) Expected: 07/14/2024 (Approximate), Expires: 07/14/2025 [facility] Work Phone: Comment on above: Expected: 07/14/2024 (Approximate), Expires: 07/14/2025 Start: 07-14-2024 End: 07-14-2025 Lipid 1996 panel - Serum or Plasma Lipid panel Lab Routine Type 2 diabetes mellitus with hyperglycemia, with long-term current use of insulin (CMS/HCC) Expected: 07/14/2024 (Approximate), Expires: 07/14/2025 [facility] Comment on above: Expected: 07/14/2024 (Approximate), Expires: 07/14/2025 Start: 07-14-2024 End: 07-14-2025 Microalbumin/Creatinin e panel in random Urine Microalbumin / creatinine urine ratio Lab Routine Type 2 diabetes mellitus with hyperglycemia, with long-term current use of insulin (CMS/HCC) Expected: 07/14/2024 (Approximate), Expires: 07/14/2025 [facility] Comment on above: Expected: 07/14/2024 (Approximate), Expires: 07/14/2025 Start: 07-14-2024 End: 07-14-2025 Renal function panel Renal function panel Lab Routine Type 2 diabetes mellitus with hyperglycemia, with long-term current use of insulin (CMS/HCC) Expected: 07/14/2024 (Approximate), Expires: 07/14/2025 [facility] Comment on above: Expected: 07/14/2024 (Approximate), Expires: 07/14/2025 Start: 07-14-2024 End: 07-14-2024 Patient encounter procedure 07/14/2024 10:50 AM EST Office Visit [facility] [address] [place] [phone] Nigel Lawson MD [address] [place] [address] Type 2 diabetes mellitus with hyperglycemia, with long-term current use of insulin (CMS/HCC) [facility] Comment on above: Type 2 diabetes jodee itus with hyperglycemia, with long-term current use of insulin (CMS/HCC) Start: 05-19-2024 End: 05-19-2024 Patient encounter procedure 05/19/2024 2:30 PM EST [facility] [address] [place] [phone] Nigel Lawson MD [address] [place] [address] [facility] Start: 03-31-2024 Hepatitis B core antibody measurement [facility] Start: 03-31-2024 [facility] Start: 01-31-2024 [facility] Start: 01-31-2024 End: 01-31-2024 Patient encounter procedure 01/31/2024 7:30 AM EDT Procedure Visit [facility] Mely Steinberg MD [address] [place] [address] [facility] Start: 01-31-2024 [facility] Start: 10-18-2023 Insulin C-peptide measurement [facility] Start: 08-06-2023 End: 08-06-2023 Patient encounter procedure 08/06/2023 10:45 AM EST [facility] [address] [place] [phone] Mely Steinberg MD [address] [place] [address] [facility] Start: 08-06-2023 End: 08-06-2023 Professional / ancillary services management [facility] Start: 07-27-2023 End: 09-06-2024 DBT Breast - bilateral screening Bilateral screening mammogram with tomosynthesis Imaging Routine Encounter for screening mammogram for malignant neoplasm of breast Expected: 07/27/2023, Expires: 09/06/2024 [facility] Work Phone: Comment on above: Expected: 07/27/2023 , Expires: 09/06/2024 Start: 07-09-2023 End: 07-09-2024 17-Hydroxyprogesterone 17-Hydroxyprogesterone Lab Routine Abnormal vaginal bleeding Expected: 07/09/2023 (Approximate), Expires: 07/09/2024 [facility] Comment on above: Expected: 07/09/2023 (Approximate), Expires: 07/09/2024 Start: 07-09-2023 End: 07-09-2024 Bacteria identified in Urine by Culture Urine culture Microbiology Routine Abnormal vaginal bleeding Expected: 07/09/2023 (Approximate), Expires: 07/09/2024 [facility] Comment on above: Expected: 07/09/2023 (Approximate), Expires: 07/09/2024 Start: 07-09-2023 End: 07-09-2024 Follicle stimulating hormone Follicle stimulating hormone Lab Routine Abnormal vaginal bleeding Expected: 07/09/2023 (Approximate), Expires: 07/09/2024 [facility] Comment on above: Expected: 07/09/2023 (Approximate), Expires: 07/09/2024 Start: 06-24-2023 [facility] Start: 02-01-2023 COVID-19 Vaccine ( season) COVID-19 Vaccine ( season) [facility] Start: 03-27-2022 [facility] Start: 01-22-2022 [facility] Start: 01-20-2022 Referral to cane feeder [facility] Start: 01-20-2022 Hospital admission [facility] Start: 02-01-2021 Influenza vaccination Flu vaccine (# 1) [facility] Work Phone: Start: 02-02-2020 Influenza vaccination Flu vaccine (# 1) [place] Start: 02-01-2019 Influenza vaccination Flu vaccine (# 1) [place] Start: 2005 DTaP/Tdap/Td Vaccine s (1 - Tdap) DTaP/Tdap/Td Vaccines (1 - Tdap) [facility] Start: 2004 Cervical cancer screen Cervical canc er screen [place], [place] Start: 2004 Screening for malignant neoplasm of cervix [facility] Start: 2002 DTaP/Tdap/Td vaccine (1 - Tdap) DTaP/Tdap/Td vaccine (1 - Tdap) [place] Start: 2002 Hepatitis B Vaccines (1 of 3 - 19+ 3-dose series) Hepatitis B Vaccines (1 of 3 - 19+ 3-dose series) [facility] Start: 2002 Urine screening for protein Diabetes: Urine Protein Screening [facility] Start: 2001 Hepatitis C screening Hepatitis C Sc reening [facility] Start: 1998 HIV screen HIV screen [place]aci [place], [place] Start: 1998 [facility] screening [facility] [place] [place] Start: 1996 Varicella vaccination Varicell a Vaccines (1 of 2 - 13+ 2-dose series) [facility] Start: 1995 COVID-19 Vaccine (1) COVID-19 Vaccin e (1) [facility] [employer] Phone: Start: 1994 DTaP/Tdap/Td vaccine (1 - Tdap) DTaP/Tdap/Td vaccine (1 - Tdap) [place] Start: 1993 Diabetic foot examination Diabetes: Foot Exam [facility] Start: 1993 Glaucoma screening Diabetes: R etinopathy Screening [facility] Start: 1989 Pneumococcal 0-64 years Vaccine (1 of 1 - PPSV23) Pneumococcal 0-64 years Vaccine (1 of 1 - PPSV23) [place] Start: 1989 Pneumococcal 0-64 years Vaccine (1 of 2 - PPSV23) Pneumococcal 0-64 years Vaccine (1 of 2 - PPSV23) [facility] [employer] Phone: Start: 1984 MMR Vaccines (1 of 1 - Standard series) MMR Vaccines (1 of 1 - Standard series) [facility] Start: 1984 Varicella vaccine (1 of 2 - 2-dose childhood series) Varicella vaccine (1 of 2 - 2-dose childhood series) [place] Start: 1983 Hemoglobin A1c measurement Diabetes: Hemoglobin A1C [facility] Start: 1983 Hepatitis C screening [facility]atitis C [facility] [place] Phone: Start: 1983 HIV screening HIV Screening [facility] Start: 1983 Lipid panel Lipid Panel [facility] Start: 1983 Urine screening for protein Diabetes: Urine Protein Screening [facility] Start: 1983 Yearly Adult Physical Yearly Adult P [facility] Cortisol Cortisol Lab Rou dave Abnormal vaginal bleeding Ordered: 07/09/2023 [facility] Comment on above: Ordered: 07/09/2023 CT ABDOMEN PELVIS W IV CONTRAST Additional Contrast? None CT ABDOMEN PELVIS W IV CONTRAST Additional Contrast? None Imaging STAT 02/23/2020 9:02 AM EDT [employer] [email or web address] End: 03-29-2020 Culture, Urine Culture, Urine Microbiology STAT One Time for 1 Occurrences starting 03/29/2020 until 03/29/2020 [facility] [place] Comment on above: One Time for 1 Occur rences starting 03/29/2020 until 03/29/2020 Culture, Urine Culture, Urine Microbiology STAT 03/29/2020 6:15 PM EDT [facility] [place] DHEA-sulfate DHEA-sulfate Lab Routine Abnormal vaginal bleeding Ordered: 07/09/2023 [facility] Comment on above: Ordered: 07/09/2023 ECG 12 Lead ECG 12 Lead ECG Routine Pre-operative clearance 10/01/2023 4:00 PM EDT [facility] [employer] Work Phone: [employer] Lab Ro utine Abnormal vaginal bleeding Ordered: 07/09/2023 [facility] Comment on above: Ordered: 07/09/2023 Estrone Estrone Lab Rout ine Abnormal vaginal bleeding Ordered: 07/09/2023 [facility] Comment on above: Ordered: 07/09/2023 Hemoglobin A1c measurement Hemoglobin A1c Lab Routine Abnormal vaginal bleeding Ordered: 07/09/2023 [facility] Comment on above: Ordered: 07/09/2023 Hepatitis C virus Ig G Ab [Presence] in Serum or Plasma by Immunoassay [facility] Hepatitis C virus RN A [log units/volume] (viral load) in Serum or Plasma by HARJINDER with probe detection [facility] Hepatitis C virus RN A [Units/volume] (viral load) in Serum or Plasma by HARJINDER with probe detection [facility] HIV 1+2 Ab+HIV1 p24 Ag [Presence] in Serum or Plasma by Immunoassay [facility] IgM [Mass/volume] in Serum or Plasma [facility] Iron and Iron bindin g capacity panel - Serum or Plasma Iron and TIBC Lab Routine Abnormal vaginal bleeding Ordered: 07/09/2023 [facility] Comment on above: Ordered: 07/09/2023 End: 01-23-2021 Lactate, Sepsis Lactate, Sepsis Lab Timed Now Then Every 2hr for 2 Occurrences starting 01/23/2021 until 01/23/2021, 1 completed [employer] Work Phone: Comment on above: Now Then Every 2hr f or 2 Occurrences starting 01/23/2021 until 01/23/2021, 1 completed Patient Education [facility] Work Phone: Patient referral [facility] Work Phone: Testosterone, free, total Testosterone, free, total Lab Routine Abnormal vaginal bleeding Ordered: 07/09/2023 [facility] Comment on above: Ordered: 07/09/2023 Thyrotropin [Units/volume] in Serum or Plasma TSH Lab Routine Abnormal vaginal bleeding Ordered: 07/09/2023 [facility] Comment on above: Ordered: 07/09/2023 Thyroxine measurement [facility] Immunizations Immunization Date Immunization Notes Care Provider Yoni rios 03-01-2023 Prevnar 20 Bill Dan Other [facility] 03-01-2023 Seasonal, quadrivale nt, recombinant, injectable influenza vaccine, preservative free Bill Dan Other [facility] 03-01-2023 influenza, live, intranasal, quadrivalent Bill Dan Other [facility] Payers Date Payer Category Payer Unknown [id number] 2023 Unknown 2022 Self-pay [id number] 2022 Medicaid (Managed Care) [id number] 2017 Medicaid [id number] 2016 Unknown [facility] xxxxxxxxxxxx 2016-Present [phone] [address] [place] [address] xxxxxxxxxxxx [id number]. [id number] 1983 Unknown [id number] 2.16.840.1.781353.3.579.2. 647 1983 Unknown [id number] 2.16.840.1.466393.3.579.2. 173 1983 Unknown [id number] 2.16.840.1.277180.3.579.2. 173 1983 Unknown [id number] 2.16.840.1.424810.3.579.2. 173 1983 Unknown [id number] 2.16.840.1.803516.3.579.2. 173 1983 Unknown [id number] 2.16.840.1.661749.3.579.2. 173 1983 Unknown [id number] 2.16.840.1.082781.3.579.2. 173 1983 Unknown [id number] 2.16.840.1.207049.3.579.2. 593 1983 Unknown [id number] 2.16.840.1.716434.3.579.2. 593 1983 Unknown [id number] 2.16.840.1.841753.3.579.2. 593 1983 Unknown [id number] 2.16.840.1.959870.3.579.2. 593 1983 Unknown [id number] 2.16.840.1.546918.3.579.2. 593 1983 Unknown [id number] 2.16.840.1.645264.3.579.2. 356 1983 Unknown [id number] 2.16.840.1.534881.3.579.2. 356 1983 Unknown [id number] 2.16840.1.096405.3.579.2. 356 1983 Unknown [id number] 2.16840.1.353327.3.579.2. 356 1983 Unknown [id number] 2.16840.1.165509.3.579.2. 356 1983 Unknown [id number] 2.16840.1.554745.3.579.2. 1259 1983 Unknown [id number] 2.840.1.737812.3.579.2. 1259 1983 Unknown [id number] 2.16840.1.066506.3.579.2. 1259 1983 Unknown [id number] 2.16840.1.367770.3.579.2. 1244 1959 Unknown [id number] 1959 Unknown [id number] 2.16840.1.687649.19 Unknown [id number] 2.840.1.842856.3.579.2. 531 Unknown [id number] 2.840.1.477043.3.579.2. 531 Unknown [id number] 2.16840.1.480009.3.579.2. 531 Unknown [id number] 2.16840.1.839783.3.579.2. 531 Social History Date Type Detail Facility Start: 10-04-2017 End: 10-01-2023 Tobacco smoking status ALIS Current every day smoker [place] History of tobacco use Cigarette Smoker [place] Start: 10-04-2017 End: 10-01-2023 Cigarettes smoked current (pack per day) - Reported [place] Comment on above: marijuana use; 1 PPD; Start: 10-04-2017 End: 01-23-2021 Alcohol intake Current drinker of alcohol (finding) [place], [place] Start: 08-07-2016 Tobacco Comment 3-4 cigs a day [place], [place] Start: 02-23-2014 Alcohol Comment rarely Kaci Castellon [place], [place] Start: 1985 Sex Assigned At Not on file [place], [place] Start: 02-21-2020 End: 10-01-2023 Tobacco use and exposure Never used [place] Start: 09-21-2023 End: 10-06-2024 Exposure to SARS-CoV-2 (event) Not sure [place] Start: 07-09-2023 End: 10-01-2023 Sex Assigned At [employer] Other Start: 01-20-2022 End: 06-04-2024 Tobacco smoking status NHIS Smoker (finding) [facility] Start: 1985 Sex Assigned At Female F [facility] Start: 04-29-2023 Tobacco smoking status ALIS Never smoked tobacco (finding) [facility] Start: 07-09-2023 Tobacco use and exposure User [...] [facility] Start: 06-04-2024 Sex Female (finding) [facility] NEGATED: Highlighted row [facility] Medical Equipment Procedure Code Equipment Code Equipment Origin al Text Equipment Identifier Dates Mesh Surg Hortencia P lug 1.6x1.9in 4.1x4.8cm [id number] Start: 08-27-2016 [id number], [id number], [id number], [id number] Start: 06-05-2023 End: 04-26-2025 Lancets (Onetouc h [...] Facility 01-22-2022 Functional status Patient at [facility] Work Phone: Mental Status Date Assessment Result Facility 01-22-2022 Cognitive function Cognitive Sta tus Patient at [facility] Work Phone: Clinical Notes 01-23-2021 to 10-06-2024 Waldo Sow DO - 10/06/2024 9:00 AM EDTPatient InstructionsAttachmentsTelephone [...] past history. 2021 she sustained non-ST elevation ND, catheterization revealed minimal coronary disease and normal [...] Scribe Attestation By signing my name below, IKamilah LPN, Scribe attest that this documentation has been [...] discussion and plan. documented in this encounter [facility] Work Phone: 10-06-2024 Instructions Kamilah Oliveros [...] cannot be sent through Care Everywhere.Mediterranean Diet ([place]ican)documented in this encounter [facility] Work Phone: 09-11-2024 Telephone encounter Note Pt requesting refill for Lantus to [facility] please and thank you! [facility] 09-11-2024 Miscellaneous Notes Pt requesting refill for Lantus to [facility] please and thank you! documented in this encounter [facility] 09-09-2024 History of Present illness Narrative [address] , [address] [facility], [address] P: [phone] F: [phone] HPI Historian of HPI: patient Natividad Bonner [...] RAPID FLU 2. Bronchitis with asthma, acute ([facility]/HCC) (Primary) Diagnosis and treatment discussed with [...] tablet; Refill: 0 documented in this encounter [facility] 07-14-2024 History of Present illness Narrative Natividad Bonner is a 38 y.o. female No ref. provider found presents with chief complaint of Diabetes and Follow-up HPI: IM : 07/2024 follow up visit on 07/14/2024 A1c 11.3, bg 171, Lantus 40 units, Trulicity 3 mg once , c/o metformin to 1000 twice a day, Jardiance 25. CGM 082 avg 233, was off her meds for almost 2 months due to lack insurance, now for almost 2 weeks. IM : 01/2024 follow up visit on 01/28/2024 A1c 9.1, bg 221, on Lantus 40 at bedtime, Trulicity 3 mg once , c/o metformin to 1000 twice a day, Jardiance 25. CGM 065 avg 182. IM : 10/2023 follow up visit on 10/22/2023 bg 181, on Lantus 40 at bedtime, Trulicity 3 mg once a week, c/o metformin to 1000 twice a day, Jardiance 25. CGM AVG 169, lab TG 162,TC 125, LDL [...] tablet, Daily Blood Glucose Monitoring Suppl ([employer] 2) w/Device kit buprenorphine-naloxone (Suboxone) 12-3 MG per sublingual film Q24H busPIRone (Buspar) 15 MG tablet Continuous Glucose Sensor (Dexcom G7 Sensor) misc 1 each doxepin (SINEquan) 10 MG capsule Daily Dulera 200-5 MCG/ACT inhaler 2 puffs, 2 times daily ergocalciferol (VITAMIN D2) 1.25 mg, Oral, Weekly gabapentin (Neurontin) 100 MG capsule 1 capsule, Nightly glucose blood (eVropauch Ultra Test) test strip USE THREE TIMES A DAY hydrocortisone 2.5 % cream insulin pen needle ([employer] Pen Liberty 31G) 31G X 8 mm misc USE ONCE DAILY Jardiance 25 MG 1 tablet, Daily Lancets (DreamCloset.comTouch Delica Plus Itnxgt93N) misc 100 Lancets, Subcutaneous, 2 times daily [...] Past Medical History: Diagnosis Date Anxiety Asthma ([facility]) Bipolar disorder ([facility]) Depression ([facility]) Dietary counseling and surveillance Essential (primary) hypertension ([facility]) History of being hospitalized 01/2022 myocardial infarction Hypertension ([facility]) Insomnia Irregular menses Mixed hyperlipidemia ([facility]) Morbid obesity with body mass index (BMI) of 40.0 to 49.9 ([facility]) Type 2 diabetes mellitus with hyperglycemia ([facility]) Type II diabetes mellitus ([facility]) Vitamin D deficiency, unspecified Past Surgical [...] hyperglycemia, with long-term current use of insulin ([facility]) - POCT glucose manually resulted - [...] a day. Vitamin D deficiency Primary hypertension ([facility]) Hyperlipemia, mixed ([facility]) Encounter for dietary consultation Diet and exercise reviewed with the patient Class 3 severe obesity due to excess calories with serious comorbidity and body mass index (BMI) of 45.0 to 49.9 in adult ([facility]) Follow up in about 3 months (around 10/11/2024). documented in this encounter [facility] 03-31-2024 Evaluation note Authored March 31, 2024 2:26pm Multiple problems, medicatio n management, review and interpretation of labs ordered by others, time [facility] Work Phone: 1(130) 555-862110-29-2024 Evaluation note* Author Raoul Moon [facility] Authored March 31, 2024 1 :26pm Multiple problems, medicatio n management, review and interpretation of labs ordered by others, time [facility] Work Phone: 1(761) 413-988804-30-2024 Evaluation + Plan note* Assessment & Plan Note - RENÉ Moses - 10/01/2023 4:18 PM EDTAssociated Problem(s): Current every day smoker 1 pack per day Continued every day tobacco use. Have reviewed the negative cardiovascular impact of nicotine. Continues to decline pharmacological assistance. [facility] Work Phone: 1([phone]) 696-854304-30-2024 Miscellaneous Notes* Assessment & Plan Note - RENÉ Moses - 10/01/2023 4:18 PM EDTAssociated Problem(s): Current every day smoker 1 pack per day Continued every day tobacco use. Have reviewed the negative cardiovascular impact of nicotine. Continues to decline pharmacological assistance. [facility] Phone: 1([phone]) 366-982304-30-2024 History of Present illness Narrative* RENÉ Moses [...] History of Present Illness Patient presents to [facility] to obtain cardiac risk stratification prior to a EXPORT TRAFFIC DEPARTMENT MANAGER ablation procedure. Surgeon: Dr. Steinberg Planned date: [...] Major clinical markers: -Acute coronary syndrome or ND within 30 days: No -Decompensated heart failure: No -Significant arrhythmia: No -Severe valvular heart disease; no 2. Intermediate clinical markers -History of ischemic heart disease (prior ND, current chest pain secondary to ischemia, use [...] hypertension: No Surgery specific risk: Low risk EXPORT TRAFFIC DEPARTMENT MANAGER ablation According to ACC/AHA guidelines, a patient with recent favorable cardiovascular evaluation without change in symptoms may proceed to surgical procedure without additional cardiovascular procedure. Daily METS >4. RIP Revised Cardiac Risk Index: Very low with [...] risk stratification prior to a low risk EXPORT TRAFFIC DEPARTMENT MANAGER procedure. At this time, there are no [...] we can help. You may also call 6-274-SNAM-NOW for free resources and assistance. Sveta Garnica MSN, BELT CLEANER-RADIO FREQUENCY TECHNICIAN, PMHNP-[facility] Please excuse any errors in grammar or translation related to this dictation. Voice recognition software was utilized to prepare this document. [facility] Work Phone: 1(648) 474-709804-30-2024 Instructions* Patient Instructions* RENÉ Moses - 10/01/2023 [...] we can help. You may also call 5-246-BKGBNOW for free resources and assistance. [facility] Work Phone: [phone]) 870-781402-06-2024 History of Present illness Narrative* Mely Steinberg MD - 07/09/2023 8:15 AM EST Images from the original note were not included. Mely Steinberg MD Obstetrics and Gynecology Patient: Natividad Bonner : 1985 (37 y.o.) Yearly Wellness Exam [...] Disp: , Rfl: Lancets (OneTouch Delica Plus Clwqxs04B) [facility] [place], , Disp: , Rfl: metFORMIN XR (Glucophage-XR) [...] of being hospitalized 01/2022 myocardial infarction Hypertension (CMS/HCC) Type II diabetes mellitus (CMS/HCC) Past Surgical History: Procedure Laterality Date TUBAL [...] Return 1 year/ultrasound visit [id number] Evaluation note* Encounter Date Diagnosis Assessment Notes Treatment Notes Treatment Clinical Notes Jul, Type 2 diabetes mellitus with hyperglycemia, unspecified 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 (ICD-10 - E11.65) [employer] Other 01-03-2024 Evaluation note* Encounter Date Diagnosis [...] 2 weeks she will complete the urinalysis [employer] [facility] 05-02-2023 Evaluation note* Encounter Date Diagnosis [...] hypertension (ICD-10 - I10) Continue current medication [employer] [facility] 08-24-2022 Evaluation note* Encounter Date Diagnosis Assessment Notes Treatment Notes Treatment Clinical Notes Jan, Moderate persistent asthma without complication (ICD-10 - J45.40) Jan, Type 2 diabetes mellitus with hyperglycemia, without long-term current use of insulin (ICD-10 - E11.65) Continue efforts with diabetic diet and exercise Jan, Coronary artery disease involving havasupai coronary artery of havasupai heart, unspecified whether angina present (ICD-10 - [...] I recommended working on the Mediterranean diet [employer] [facility] Progress note Author Wes Nunes [facility] January 21, 2022 4:02pm Note Date/Time January 21, 2022 4: 02pm [facility] [address] [place] [address] Hospitalist Progress Note Signed Patient: Natividad Bonner MR#: [id number] : 1985 Acct:[id number] Age/Sex: 36 / F Adm Date: 2 Loc: 4 Room: [address] [place] [address] Type: ADM INOo Attending Dr: Wes Nunes [...] full code Documented By: Wes Nunes MD 01/21/22 1601 Signed By: <Electronically signed by Wes Nunes MD> 01/21/22 1602 [facility] Work Phone: 1(763) 731-747708-21-2022 Progress note Author Waldo Varma [facility] January 21, 2022 10:35am Note Date/Time January 21, 2022 10 :33am [facility] [address] [place] [address] Cardiology Progress Note Signed Patient: Natividad Bonner MR#: [id number] : 1985 Acct:[id number] Age/Sex: 36 / F Adm Date: 2 Loc: Room: [address] [place] [address] Type: ADM INOo Attending Dr: Wes Nunes MD Copies to: ~ Date of Service: 01/21/2022 Subjective Principal diagnosis: Non-ST segment elevation ND Interval history: Patient had a stable and [...] MPV Neut % (Auto) Lymph % (Auto) [place] % (Auto) Eos % (Auto) Baso % (Auto) Neut # (Auto) Lymph # (Auto) [place] # (Auto) Eos # (Auto) Baso # [...] % (Auto) 59.8 Lymph % (Auto) 31.6 [place] % (Auto) 4.6 Eos % (Auto) 2.9 Baso % (Auto) 1.1 Neut # (Auto) 6.2 Lymph # (Auto) 3.3 [place] # (Auto) 0.5 Eos # (Auto) 0.3 [...] MPV Neut % (Auto) Lymph % (Auto) [place] % (Auto) Eos % (Auto) Baso % (Auto) Neut # (Auto) Lymph # (Auto) [place] # (Auto) Eos # (Auto) Baso # [...] signed by MD Waldo Varma> 01/21/22 1035 [facility] Work Phone: 1(203) 226-613308-20-2022 Progress note Author Wes Nunes [facility] January 20, 2022 4:45pm Note Date/Time January 20, 2022 4: 45pm [facility] [address] [place] [address] Hospitalist Progress Note Signed Patient: Natividad Bonner MR#: [id number] : 1985 Acct:[id number] Age/Sex: 36 / F Adm Date: 2 Loc: 4N Room: [address] [place] [address] Type: ADM INOo Attending Dr: Wes Nunes [...] Heparin IV 01/20/23 04:59 1,300 unit/hr .Q24H EMELY 13 mls/hr Titration Protocol 900 UNIT/HR Labetalol [...] <Electronically signed by Wes Nunes MD> 01/20/22 7968 [facility] Work Phone: 1([phone]) 149-639608-20-2022 Consult note Author Waldo Varma [facility] January 20, 2022 12:45pm Note Date/Time January 20, 2022 12 :45pm [facility] [address] [place] [address] Cardiology Consult Note Signed Patient: Natividad Bonner MR#: [id number] : 1985 Acct:[id number] Age/Sex: 36 / F Adm Date: 2 Loc: 4N Room: [address] [place] [address] Type: ADM INOo Attending Dr: Wes Nunes [...] ultimately went to the emergency room in [place]. First troponin normal but second troponin elevated because of this she was transferred here. Subsequent troponins have continued to rise but her pain went away She acknowledges a history of treated diabetes and hypertension. She is a smoker. Lipid status unknown. She states family does not have coronary disease. The patient was advised that she has acute coronary syndrome and/or non-ST segment elevation ND and I recommend pharmacologic stabilization and subsequent [...] (Vistaril) 25 mg PO TID PRN Anxiety 03/29/20 [History [...] x10E3/uL Lymph # (Auto) 2.8 (1.00-4.8) x10E3/uL [place] # (Auto) 0.6 (0.0-0.8) x10E3/uL Eos # [...] schedule angiogram. Documented By: Waldo Varma MD 1242 Signed By: <Electronically signed by MD Waldo Varma> 01/20/22 1243 [facility] Work Phone: 1(585) 349-698708-20-2022 History and physical note Author Jose Lan [facility] January 20, 2022 4:57am Note Date/Time January 20, 2022 4: 53am [facility] [address] [place] [address] Hospitalist H&P Signed Patient: Natividad Bonner MR#: [id number] : 1985 Acct:[id number] Age/Sex: 36 / F Adm Date: 2 Loc: Room: [address] [place] [address] Type: ADM IN Attending Dr: Jose Lan DO Copies to: DO Bill Ac, ~ HPI DATE OF EXAMINATION: 01/20/22 CHIEF COMPLAINT: Chest pain HISTORY OF PRESENT ILLNESS: Ms. Bonner is a 36-year-old female with a past medical history of depression, diabetes, hypertension, anxiety who presents to our hospital as a transfer from [place] with a chief complaint of chest pain. She states she woke up this morning and had to had 10 chest pain located in the center of her chest which feels like she is being sat on, she denies any exertional component to this. She denies any relief to this with resting. When she went to the [facility] emergency room her initial troponin was [...] when discussing her elevated heart enzymes that [place] told her about she became very tearful. [...] 137/84 96 Room Air 01/20/22 04:19 01/20/22 04:01/20/22 04:19 01/20/22 04:19 01/20/22 04:01/20/22 04:19 Narrative: General: Awake alert, no acute [...] a heparin GTT for diagnosed NSTEMI at [facility] based on troponin going from 8 [...] 01/20/22441 Signed By: <Electronically signed by Jose Lan, DO> 01/20/22 0457 [facility] Work Phone: [phone]) 873-850405-13-2022 Evaluation note* Encounter Date Diagnosis Assessment Notes Treatment Notes Treatment Clinical Notes October, Type 2 diabetes mellitus with hyperglycemia, without long-term current use of insulin (ICD-10 - E11.65) [employer] Other 03-14-2022 Evaluation note* Encounter Date Diagnosis Assessment Notes Treatment Notes Treatment Clinical Notes Aug, Type 2 diabetes mellitus with hyperglycemia, without long-term current use of insulin (ICD-10 - E11.65) [employer] Other 02-10-2022 Evaluation note* Encounter Date Diagnosis Assessment Notes Treatment Notes Treatment Clinical Notes Jul, Elevated fasting blood sugar (ICD-10 - R73.01) Jul, Type 2 diabetes mellitus with hyperglycemia, without long-term current use of insulin (ICD-10 - E11.65) Discussed diet/exercise and starting metformin. She declined an order for diabetes education so I recommended her to use the [place] diabetes [employer] website. We discussed the importance [...] now, may switch to ACEI/ARB in future [employer] [facility] 08-23-2021 Hospital Discharge instructions* Instructions* Neelima Dutton, - 01/23/2021 Continue taking Motrin and Tylenol for additional pain. Call and follow-up with your family doctor soon as possible. Return to the emergency department for new, worsening or worrisome symptoms which include but are not limited to increased pain, vomiting and fevers. documented [facility] this [facility] Work Phone: discharge summary Author Yash Garvey [facility] January 22, 2022 4:48pm Note Date/Time January 22, 2022 2: 57pm [facility] [address] [place] [address] Discharge Summary Signed Patient: Natividad Bonner MR#: [id number] : 1985 Acct:[id number] Age/Sex: 36 / F Adm Date: 2 Loc: Room: [address] [place] [address]: Yash Garvey MD Copies to: MD Bill Alfaro, ~ Providers Date of Discharge: 01/22/22 Discharging Provider: [...] psychiatric comorbidities noted above, who presented to [place] ED with complaints of chest pain on [...] Low-Cholesterol Additional Instructions: DISCHARGE INSTRUCTIONS FOR CARDIAC BOW MAKER PHONE NUMBER OF YOUR PHYSICIAN: [phone] PROCEDURE: Heart Cath The following instructions have [...] cold, numb, blue or white, call the cane feeder immediately. 4. ACTIVITY: You are advised to [...] bottle, follow the instructions on the bottle. [facility] is not responsible for incorrect prescription information [...] needed.) Documented By: Yash Garvey MD 01/22/22 3972 Signed By: <Electronically signed by Yash Garvey MD> 01/22/22 1648 [facility] Work Phone: Evaluation note* Diagnosis Left flank pain- Primary Abdominal pain, unspecified site documented in this encounter [facility] Work Phone: evaluation note* Diagnosis Onset Date Resolution Status Anxiety acute Chest pain acute Depression acute Diabetes acute Nausea and vomiting acute Non-ST elevation (NSTEMI) myocardial infarction acute Tobacco abuse acute [facility] Work Phone: Evaluation noteNo InformationNort [employer] Other Evaluation noteNo assessment information available [facility] Work Phone: Evaluation note* Diagnosis Screening for malignant neoplasm of cervix Screening for malignant neoplasm of the cervix Encounter for gynecological examination without abnormal finding Encounter for screening mammogram for malignant neoplasm of breast Abnormal vaginal bleeding Other specified noninflammatory disorder of vagina [facility] Diagnosis Syndrome X (cardiac) ([facility])- Primary Type 2 diabetes mellitus without complication, with long-term current use of insulin (Multi) Mild CAD Mixed hyperlipidemia Essential hypertension Unspecified essential hypertension Current every day smoker BMI 45.0-49.9, adult (Multi) NSTEMI, initial episode of care (Multi) Pre-operative clearance Unspecified pre-operative examination documented in this encounter [facility] Work Phone: Evaluation note* Diagnosis Type 2 diabetes mellitus with hyperglycemia, with long-term current use of insulin ([facility])- Primary documented in this encounter [facility]* Diagnosis Type 2 diabetes mellitus with hyperglycemia, with long-term current use of insulin ([facility])- Primary documented in this encounter [facility]* Diagnosis Type 2 diabetes mellitus with hyperglycemia, with long-term current use of insulin ([facility])- Primary Vitamin D deficiency Primary hypertension ([facility]) Unspecified essential hypertension Hyperlipemia, mixed ([facility]) Mixed hyperlipidemia Encounter for dietary consultation Class 3 severe obesity due to excess calories with serious comorbidity and body mass index (BMI) of 45.0 to 49.9 in adult ([facility]) [facility] Diagnosis Type 2 diabetes mellitus with hyperglycemia, with long-term current use of insulin ([facility])- Primary [facility] Diagnosis Type 2 diabetes mellitus with hyperglycemia, with long-term current use of insulin ([facility]) [facility] Diagnosis Bronchitis with asthma, acute ([facility])- Primary Cough, unspecified type [facility] Diagnosis Syndrome X (cardiac)- Primary Type 2 diabetes mellitus without complication, with long-term current use of insulin Mild CAD Mixed hyperlipidemia Essential hypertension Unspecified essential hypertension Current every day smoker BMI 45.0-49.9, adult (Multi) NSTEMI, initial episode of care (Multi) Pre-operative clearance Unspecified pre-operative examination ASHD (arteriosclerotic heart disease) Coronary atherosclerosis of unspecified type of vessel, havasupai or graft Type 2 diabetes mellitus with other specified complication, with long-term current use of insulin Current every day smoker BMI 45.0-49.9, adult (Multi) Localized edema Edema Syndrome X (cardiac) documented in this encounter [facility] Work Phone: History general Narrative - Reported* Type Description Date Medical History HTN Medical History ANXIETY Medical History DEPRESSION Medical History asthma Surgical History Hernia Surgeries Surgical History Tubal Ligation Hospitalization History SEE ABOVE [employer] Other Hospital Discharge instructions Additional Instructions DISCHARGE INSTRUCTIONS FOR CARDIAC BOW MAKER PHONE NUMBER OF YOUR PHYSICIAN: [phone] PROCEDURE: Heart Cath The following instructions have [...] cold, numb, blue or white, call the cane feeder immediately. 4. ACTIVITY: You are advised to [...] bottle, follow the instructions on the bottle. [facility] is not responsible for incorrect prescription information provided by the patient during their visit. Do not stop your medications without consulting your health care provider. Please take the list with you to your next doctor's appointment.[facility] Work Phone: Hospital Discharge instructions Additional Instructions Take antibiotics as instructed until gone Push fluids Rest Avoid poking, popping, picking area affected Warm compresses several times a day Avoid underwire bras Naprosyn or Tylenol for pain Please follow primary care doctor for recheck in 3 days Return here if you develop any fever, chills, chest pain, shortness of breath or any other [facility] Work [facility]: Hospital Discharge instructions Additional [...] pain swelling fever vomiting or any other [facility] Work Phone: Hospital Discharge instructions Additional [...] NOT operate machinery such as power tools, ELDR Median mowers, snow blowers, sewing machines, etc. for 24 hours. - [...] problems. -Follow up with PCP. -Office number [phone].[facility] Work Phone: Hospital Discharge instructions Additional [...] in an emergency, call the office at [[phone]]. TODAY -Take it easy the rest of [...] FOLLOW UP -Please call the office at [phone] to arrange an appointment to see me in 2 [facility] Work Phone: Hospital Discharge instructions Additional Instructions Continue albuterol as scheduled Continue steroids daily at home start tomorrow Good handwashing Follow with your PCP Return here if any problems persist or [facility]senCh[facility] Work Phone: Reason for referral (narrative)* Consultation (Routine) - Authorized Specialty Diagnoses / Procedures Referred By Contac t Referred To Contact Cardiology Diagnoses Syndrome X (cardiac) ([facility]) Procedures Follow Up In Cardiology Sveta Garnica BELT CLEANER-RADIO FREQUENCY TECHNICIAN [address] [facility] [address], [address] [address] Waldo Sow DO [facility] [facility] [address], [address] [address] Referral ID Status Reason Start Date Expiration Date V isits Requested Visits Authorized [id number] Authorized 10/01/2023 09/30/2024 1 1 * Cardiovascular (Routine) - Authorized Specialty Diagnoses / Procedures Referred By Contac t Referred To Contact Diagnoses Pre-operative clearance Procedures ECG 12 Lead Sveta Garnica APRN-RADIO FREQUENCY TECHNICIAN [facility] [facility] [address], [address] [address] Referral ID Status Reason Start Date Expiration Date V isits Requested Visits Authorized [id number] Authorized 10/01/2023 09/30/2024 1 1 [facility] Work Phone: Summary Purpose Family History [...] FoundDocuments on File Type Date 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 Will 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 Latest Code Status on File Code Status Date Activated Date Inactivated Comments Full Code 02/23/2014 5:55 PM 02/26/2014 11:34 AM Documents on File Type Date 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 documented in this encounter Discharge Instructions * Attachments The following attachments cannot be sent through Care Everywhere. * Colitis ([place]) documented in this encounter* Instructions* Tonie Arzola [...] * NATIVIDAD BONNER is being seen for [facility] D/C 01/22 Cath. * 36-year-old female who [...] as potential etiologies for her non-ST elevation ND event including syndrome X. * Recommendations, continued current therapies, she can follow-up as needed, refer to cardiac rehab for ongoing post ACS rehabilitation, exercise, dietary discretion, weight loss counseling and smokingcessation counseling performed. * NATIVIDAD BONNER is being seen for [facility] D/C 01/22 Cath. * 36-year-old female who [...] as potential etiologies for her non-ST elevation ND event including syndrome X. * Recommendations, continued [...] FARRIS E11.65 E55.9 z71.3 R35.0 Chief Complaint Amb Documentation Menorrhagia w/ Irregular Cycle Chief [...] apnea Tardive dyskinesia Chief Complaint Admit Date f11.20 March 31, 2024 1 1:43am unable to sleep for more than 1 hr up an d down March 31, 2024 1:39pm BH April 28, 2024 2:23pm trouble breathing June [...] Diagnosis 1 Constipation (K59.00 ) Referral Organization [facility] Ilia Mackenzie Referring Provider First Name Bill Referring Provider Last Name Eagle Referring Provider Specialty Family Prac tra Referred Organization [facility] Gastroenterolo gy Referred Provider Kendrick Joya Referred Address [address] [address] ,[place], [place],[address] Referred Provider Specialty Gastroentero logy Referral Priority Routine General Notes Caro Saenz 08/2023 01:53:13 PM >referral received and sent p2p Reason hidradenitis suppura tiva and abscesses Diagnosis 1 Hidradenitis suppura tiva (L73.2) Referral Organization [facility] Ilia Mackenzie Referring Provider First Name Bill Referring Provider Last Name Eagle Referring Provider Specialty Family Prac tra Referred Provider Specialty Dermatology Referral Priority Routine Additional Source Comments INFORMATION SOURCE (unrecogn ized section and content) DATE CREATED AUTHOR 03/15/[address] [facility] DATE CREATED AUTHOR AUTHOR'S ORGANIZ ATION 01/24/2021 [facility] DATE CREATED AUTHOR AUTHOR'S ORGANIZ ATION 01/25/2022 [facility] DATE CREATED AUTHOR AUTHOR'S ORGANIZ ATION 02/01/2022 [facility] DATE CREATED AUTHOR AUTHOR'S ORGANIZ ATION 03/04/2022 [facility] DATE CREATED AUTHOR AUTHOR'S ORGANIZ ATION 09/11/2024 [facility] EPIC DATE CREATED AUTHOR AUTHOR'S ORGANIZ ATION 10/09/2024 [facility] DATE CREATED AUTHOR AUTHOR'S ORGANIZ ATION 01/29/2025 [facility] Reason for Visit (unrecogniz ed section and content) Status Reason Specialty Diagnoses / Procedures Referred By Contact Referred To Contact Not Required - [facility] EKG Diagnoses Cardiac arrhythmia Procedures [facility], Sr Sanjeev P, DO [address] [place] [address] [facility] [address] [place] [address] Reason Comments Diarrhea Onset yesterday with diffuse abdominal pain/cramping. Emesis Onset yesterday, sev eral episodes Reason Comments Other pt is here for medic al clearance - has a room on [address] [place] [address]. 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 Last used 24 hours ago. Pt is a voluntary admission to [address] [place] [address] and denies any suicidal ideation Reason Comments [...] Exam Vaginal Bleeding Reason Comments Pre-op Clearance Steinberg - ablation Specialty Diagnoses / Procedures Referred By Colette mckeon Referred To Contact Diagnoses Pre-operative clearance Procedures ECG 12 Lead Sveta Garnica BELT CLEANER-RADIO FREQUENCY TECHNICIAN [address] [facility] [address] [place] [address] Referral ID Status Reason Start Date Expiration Date V isits Requested Visits Authorized [id number] Authorized 10/01/2023 09/30/2024 1 1 Reason Comments Med Refill Reason Comments Diabetes Follow-up Reason Onset Date Comments Med Refill 09/11/2024 Reason Comments Annual Exam 1 year, syndrome X Specialty Diagnoses / Procedures Referred By Colette mckeon Referred To Contact Cardiology Diagnoses Syndrome X (cardiac) Procedures Follow Up In Cardiology Sveta Garnica BELT CLEANER-RADIO FREQUENCY TECHNICIAN [address] [facility], [address] [place] [address] Phone: tel: fax: Waldo Sow, [address] [facility], [address] [place] [address] Phone: tel: fax: Referral ID Status Reason Start Date Expiration Date V isits Requested Visits Authorized [id number] Authorized 10/01/2023 09/30/2024 1 1 Scheduled Active and Recently Administ ered Medications (unrecognized section and content) Medication Order 01/22/2021 01/23/2021 01/24/2021 0.9 % sodium chloride bolus (COMPLETED) 1,000 mL, Intravenous, at 1,000 mL/hr, Administer over 1 Hours, ONCE, On Sat01/23/21 at 2014, For 1 dose 2035 (New Bag - Provider: Lili Akbar, RN)[phone] (Stopped - Provider: Pavithra Ernst, GUS) morphine injection 4 mg (COMPLETED) 4 mg, [...] On Sat01/23/21 at 2014, For 1 dose 2036 (Given [...] Provider Active Start: December 31, 2023 Mc uDran MD Attending Provider Active Start: December 31, [...] 2023 End: April 29, 2023 Cira Graf [facility] Emergency Provider Active Start: April 29, 2023 [...] Member Role Status Dates Jose Lan , DO Admit Provider Active Bill Dan , DO Primary Care Provider Active Natividad Montesinos RN Other Provider Active Suzette Sow , DO Other Provider Active Orlando Lara MD Other Provider Active Waldo Varma MD Other Provider Active Maite Leary MD Other Provider Active Sanjeev Ibrahim MD Other Provider Active Sveta Garnica APRN Other Provider Active Brooklynn Rg MD Other Provider Active Shvaonne Lawrence MD Other Provider Active Brynn Wright MD Other Provider Active Yash Garvey MD Attending Provider Active Team Status: Inactive Member Role Status Dates Bill Dan , DO Primary Care Provider Active Aurelio Jesus , DO Emergency Provider Active Team Status: Inactive Member Role Status Dates Bill Dan , DO Primary Care Provider Active Stephane Alonso , DO Emergency Provider Active Team Status: Inactive Member Role Status Dates Bill Dan , DO Primary Care Provider Active Molly Elaine APRN Attending Provider Active Team Status: Inactive Member Role Status Dates Bill Dan , DO Primary Care Provider Active Cira Graf , [facility] Emergency Provider Active Art Objects Repairer Relationship Specialty Start Date End Date Bill Dan MD [address] [place] [address] PCP - General Family Medicine 07/04/23 Mely Steinberg MD [address] [facility] [address] [place] [address] Obstetrics and Gynecology 07/04/23 Art Objects Repairer Relationship Specialty Start Date End Date Bill Dan DO [address] [facility] [place] [address] PCP - General 06/03/19 Team Status: Inactive [...] January 31, 2024 End: January 31, 2024 Art Objects Repairer Relationship Specialty Start Date End Date Bill Dan MD [address] [facility] [place] [phone] PCP - General Family Medicine 07/04/23 Mely Stein[facility] MD [address] [facility] [address] [place] [address] Obstetrics and Gynecology 07/04/23 Team Status: Active [...] Attending Provider Active Start: March 31, 2024 Art Objects Repairer Relationship Specialty Start Date End Date Bill Dan MD [address] [place] [phone] PCP - General Family Medicine 07/04/23 Mely Steinberg MD [address] [address] Obstetrics and Gynecology 07/04/23 Art Objects Repairer Relationship Specialty Start Date End Date Bill Dan MD [address] [facility] [place] [phone] PCP - General Family Medicine 07/04/23 Mely Steinberg MD [address] [address] Obstetrics and Gynecology 07/04/23 Art Objects Repairer Relationship Specialty Start Date End Date Bill Dan MD [address] [facility] [place] [phone] PCP - General Family Medicine 07/04/23 Mely Steinberg MD [address] [address] [place] [address] Obstetrics and Gynecology 07/04/23 Art Objects Repairer Relationship Specialty Start Date End Date Bill Dan MD [address] [place] [phone] PCP - General Family Medicine 07/04/23 Mely Steinberg MD [address] [address] [place] [address] Obstetrics and Gynecology 07/04/23 Art Objects Repairer Relationship Specialty Start Date End Date Bill Dan MD [address] [facility] [place] [phone] PCP - General Family Medicine 07/04/23 Mely Steinberg MD [address] [place] [address] Obstetrics and Gynecology 07/04/23 Art Objects Repairer Relationship Specialty Start Date End Date Bill Dan MD [address] [facility] [place] [phone] PCP - General Family Medicine 07/04/23 Mely Steinberg MD [address] [facility] [address] [place] [address] Obstetrics and Gynecology 07/04/23 Art Objects Repairer Relationship Specialty Start Date End Date Bill Dan MD PCP - General Family Medicine 07/04/23 Mely Steinberg MD [address] [facility] [address] [place] [address] Obstetrics and Gynecology 07/04/23 Art Objects Repairer Relationship Specialty Start Date End Date Bill Dan DO [address] [facility] [place] [address] PCP - General 06/03/19 Goals (unrecognized section [...] BE BASED ON THE PRIMARY CLINICAL RECORDS. [facility]. provides no warranty or guarantee of the accuracy or completeness of information in this document.
--- NOTE | 2025-02-12 22:19 | ECG_ITS ---
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
--- NOTE | 2025-02-12 22:21 | ED.CHESTPAI1 ---
HPI - Chest Pain General Chief Complaint: Chest Pain Stated Complaint: CHEST PAIN/ PREVIOUS HEART ATTACK 2021 Time Seen by Provider: 02/12/25 22:08 Source: patient Mode of arrival: walk-in History of Present Illness HPI narrative: history of CAD , IDDM and CAD. states CT 2022. Presents with substernal chest pain on and off since 4PM. No associated nausea or diaphoresis. No abdominal pain. Related Data Home Medications ?Medication ?Instructions ?Recorded ?Confirmed albuterol sulfate 2.5 mg/3 mL 2.5 mg inhalation Q8H PRN 11/15/24 11/15/24 (0.083 %) solution for nebulization shortness of breath or wheezing albuterol sulfate 90 mcg/actuation 2 puff inhalation Q6H PRN 11/15/24 11/15/24 aerosol inhaler shortness of breath or wheezing aspirin 81 mg tablet,delayed 81 mg PO DAILY 11/15/24 11/15/24 release atenolol 50 mg tablet 50 mg PO DAILY 11/15/24 11/15/24 atorvastatin 40 mg tablet 40 mg PO BEDTIME 11/15/24 11/15/24 buprenorphine 8 mg-naloxone 2 mg 2 tab sublingual DAILY 11/15/24 11/15/24 sublingual tablet buspirone 30 mg tablet 30 mg PO TID 11/15/24 11/15/24 deutetrabenazine 30 mg 30 mg PO DAILY 11/15/24 11/15/24 tablet,extended release 24 hr (Austedo XR) dulaglutide 3 mg/0.5 mL 3 mg subcut .weekly 11/15/24 11/15/24 subcutaneous pen injector (Trulicity) empagliflozin 25 mg tablet 25 mg PO DAILY 11/15/24 11/15/24 (Jardiance) ergocalciferol (vitamin D2) 1,250 50,000 unit PO .weekly 11/15/24 11/15/24 mcg (50,000 unit) capsule gabapentin 100 mg capsule 200 mg PO DAILY 11/15/24 11/15/24 hydrochlorothiazide 25 mg tablet 25 mg PO DAILY 11/15/24 11/15/24 insulin glargine 100 unit/mL (3 40 unit subcut BEDTIME 11/15/24 11/15/24 mL) subcutaneous pen (Lantus Solostar U-100 Insulin) metformin 1,000 mg tablet 1,000 mg PO BID 11/15/24 11/15/24 oxybutynin chloride 5 mg 5 mg PO DAILY 11/15/24 11/15/24 tablet,extended release 24 hr prazosin 5 mg capsule 5 mg PO DAILY 11/15/24 11/15/24 quetiapine 200 mg tablet 200 mg PO BEDTIME 11/15/24 11/15/24 venlafaxine 37.5 mg 37.5 mg PO DAILY 11/15/24 11/15/24 capsule,extended release 24 hr Allergies Allergy/AdvReac Type Severity Reaction Status Date / Time No Known Drug Allergies Allergy Verified 02/12/25 21:26 Review of Systems ROS Status of ROS 10 or more systems reviewed and unremarkable except as noted in history and below PFSH PFS Social History Little interest or pleasure in doing things: not at all Feeling down, depressed, or hopeless: not at all Exam Constitutional Vital Signs, click to edit/add: Last Vital Signs Temp 98.2 F 02/12/25 21:26 Pulse 78 02/13/25 00:20 Resp 16 02/13/25 00:20 BP 117/76 02/13/25 00:00 Pulse Ox 98 02/13/25 00:20 O2 Del Method Room Air 02/12/25 21:26 Common normals: no apparent distress, average body habitus, oriented x3, no limitations, healthy appearing, alert and well nourished [facility] Common normals: normocephalic and head/scalp atraumatic Eye Common normals: PERRL, EOMs intact bilaterally and conjunctivae normal Respiratory Common normals: normal respiratory effort, no retractions, no use of accessory muscles and clear to auscultation bilaterally Cardio Common normals: regular rate, regular rhythm, S1 normal heart sound and S2 normal heart sound GI Common normals: Normal to inspection, nondistended, normoactive bowel sounds present, soft to palpation and non-tender Extremity Common normals: normal to inspection and full ROM Neuro Common normals: oriented x3, CN's II-XII intact bilaterally, moves all extremities and no focal motor deficits Psych Appearance: grossly normal Course Vital Signs Vital signs: Vital Signs Temperature 98.2 F 02/12/25 21:26 Pulse Rate 80 02/12/25 21:26 Respiratory Rate 20 02/12/25 21:26 Blood Pressure 125/67 02/12/25 21:26 Pulse Oximetry 98 02/12/25 21:26 Oxygen Delivery Method Room Air 02/12/25 21:26 Temperature 98.2 F 02/12/25 21:26 Pulse Rate 78 02/13/25 00:20 Respiratory Rate 16 02/13/25 00:20 Blood Pressure 117/76 02/13/25 00:00 Pulse Oximetry 98 02/13/25 00:20 Oxygen Delivery Method Room Air 02/12/25 21:26 MDM - Chest Pain MDM Narrative Medical decision making narrative: IDDM , history of CT. chest pain on and off since 4pm. Has dyspnea but is chronic because of her COPD. Given Nitro SL and pain down to 2/10. Troponin is neg. cxray per my review is neg for acute finding. No CHF or infiltrate. EKG low voltage. NSR. No acute findings. Hospitalist [facility] hospitalist has accepted the patient. Patient informed of the above but she is wanting to leave despite her pain improving after nitro and her known historoy of CT. Informed this is likely angina of her heart. She and her partner are going to talk about it but she is strongly considering leaving AMA Lab Data Labs: Lab Results 02/12/25 02/12/25 Range/Units 22:23 23:49 WBC 10.0 (4.0-11.0) 10^3/uL RBC 4.78 (4.20-5.40) 10^6/uL Hgb 14.7 (12.0-16.0) g/dL Hct 42.6 (36.0-48.0) % MCV 89.1 (81.0-99.0) fL MCH 30.8 (26.7-34.0) pg MCHC 34.5 (29.9-35.2) g/dL RDW 13.3 (11.0-15.0) % Plt Count 290 (150-450) 10^3/uL MPV 9.3 L (9.5-13.5) fL Neut % (Auto) 61.4 (43.0-75.0) % Lymph % (Auto) 28.3 (20.5-60.0) % [place] % (Auto) 6.4 (1.7-12.0) % Eos % (Auto) 2.6 (0.9-7.0) % Baso % (Auto) 0.8 (0.2-2.0) % Neut # (Auto) 6.2 (1.4-6.5) 10^3/uL Lymph # (Auto) 2.8 (1.2-3.8) 10^3/uL [place] # (Auto) 0.6 (0.3-0.8) 10^3/uL Eos # (Auto) 0.3 (0.0-0.7) 10^3/uL Baso # (Auto) 0.1 (0.0-0.1) 10^3/uL Abs Immat Gran (auto) 0.05 H (0.00-0.03) 10^3/uL Imm/Tot Granulo (auto) 0.5 (0.0-0.5) % Sodium 139 (136-145) mmol/L Potassium 3.8 (3.5-5.1) mmol/L Chloride 105 (98-107) mmol/L Carbon Dioxide 23.8 (21.0-32.0) mmol/L Anion Gap 14.0 BUN 16.0 (7.0-18.0) mg/dL Creatinine 0.79 (0.55-1.02) mg/dL Est GFR ( Amer) >60 (>=60 mL/min/1.73m^2) Est GFR (Non-Af Amer) >60 (>=60 mL/min/1.73m^2) BUN/Creatinine Ratio 20.3 Glucose 119 H (74-106) mg/dL Calcium 8.7 (8.5-10.1) mg/dL Total Bilirubin 0.4 (0.2-1.0) mg/dL AST 12 L (15-37) U/L ALT 27 (14-59) U/L Alkaline Phosphatase 79 (46-116) U/L Troponin I High Sens <4.0 L <4.0 L (4.0-51.3) pg/mL Total Protein 7.0 (6.4-8.2) g/dL Albumin 3.6 (3.4-5.0) g/dL Globulin 3.4 g/dL Albumin/Globulin Ratio 1.1 Discharge Plan Discharge Stand Alone Forms: Portal Instructions Chief Complaint: Chest Pain Clinical Impression: Chest pain Patient Disposition: Left Against Medical Advice Condition: Good Mode of Transportation: Private Vehicle Prescriptions / Home Meds: No Action albuterol sulfate 2.5 mg /3 mL (0.083 %) solution for nebulization 2.5 mg inhalation Q8H PRN (Reason: shortness of breath or wheezing) albuterol sulfate 90 mcg/actuation HFA aerosol inhaler 2 puff INHALATION Q6H PRN (Reason: shortness of breath or wheezing) aspirin 81 mg tablet,delayed release (DR/EC) 81 mg PO DAILY atenolol 50 mg tablet 50 mg PO DAILY atorvastatin 40 mg tablet 40 mg PO BEDTIME buprenorphine-naloxone 8-2 mg tablet, sublingual 2 tab SUBLINGUAL DAILY buspirone 30 mg tablet 30 mg PO TID [place] XR 30 mg tablet extended release 24 hr 30 mg PO DAILY Trulicity 3 mg/0.5 mL pen injector 3 mg SUBCUT .weekly Jardiance 25 mg tablet 25 mg PO DAILY ergocalciferol (vitamin D2) 1,250 mcg (50,000 unit) capsule 50,000 unit PO .weekly gabapentin 100 mg capsule 200 mg PO DAILY hydrochlorothiazide 25 mg tablet 25 mg PO DAILY insulin glargine [Lantus Solostar U-100 Insulin] 100 unit/mL (3 mL) insulin pen 40 unit SUBCUT BEDTIME metformin 1,000 mg tablet 1,000 mg PO BID oxybutynin chloride 5 mg tablet extended release 24hr 5 mg PO DAILY prazosin 5 mg capsule 5 mg PO DAILY quetiapine 200 mg tablet 200 mg PO BEDTIME venlafaxine 37.5 mg capsule,extended release 24hr 37.5 mg PO DAILY Print Language: Scottish Referrals: BILL DAN [Primary Care Provider, Unknown] - 1 week Discharge Date/Time: 02/13/25 00:38
--- NOTE | 2025-02-12 22:23 | XR_ITS ---
[facility] [place] [id number] Patient Name: GILBERT BRUNER MRN: [id number] date: 1985 Sex: F Assigned Patient Location: ER Current Patient Location: ER Accession/Order Number: [id number] Exam Date: 02/12/2025 22:50 Report Date: 02/12/2025 23:25 At the request of: ANDERS BHARDWAJ MD Procedure: XR chest 1V PA CHEST: CLINICAL HISTORY: chest pain COMPARISON: 01/19/2022 FINDINGS: unremarkable cardiomediastinal. Lungs clear. No effusion or pneumothorax. XR/XR chest 1V IMPRESSION: NEGATIVE CHEST. Impression dictated by: Memo Butcher M.D. 02/12/2025 11:25 PM Dictation Location: [place] [address] Electronically authenticated by: [id number] Y Date: 02/12/2025 23:25
[2025-02-12 22:30] LABS: Hematocrit 42.6 % (36.0-48.0); Hemoglobin 14.7 g/dL (12.0-16.0); Immature Granulocytes Abs Auto 0.05 10^3/uL (0.00-0.03); Immature Granulocytes Pct Auto 0.5 % (0.0-0.5); Lymphocytes Absolute Auto 2.8 10^3/uL (1.2-3.8); Mean Corpuscular HGB Conc 34.5 g/dL (29.9-35.2); Mean Corpuscular Hemoglobin 30.8 pg (26.7-34.0); Mean Corpuscular Volume 89.1 fL (81.0-99.0); Platelet Count 290 10^3/uL (150-450); Red Blood Count 4.78 10^6/uL (4.20-5.40); White Blood Count 10.0 10^3/uL (4.0-11.0)
[2025-02-12] MEDS: NITROGLYCERIN 0.4 MG BOTTLE SL ×3 (22:43→22:51)
[2025-02-12 22:53] LABS: Alanine Aminotransferase 27 U/L (14-59); Albumin Globulin Ratio 1.1; Albumin Level 3.6 g/dL (3.4-5.0); Alkaline Phosphatase 79 U/L (46-116); Anion Gap 14.0; Aspartate Amino Transferase 12 U/L (15-37); Blood Urea Nitrogen 16.0 mg/dL (7.0-18.0); Calcium 8.7 mg/dL (8.5-10.1); Carbon Dioxide 23.8 mmol/L (21.0-32.0); Chloride 105 mmol/L (98-107); Estimated GFR (African America >60 (>=60 mL/min/1.73m^2); Estimated GFR (Non-African Ame >60 (>=60 mL/min/1.73m^2); Globulin 3.4 g/dL; Glucose 119 mg/dL (74-106); Potassium 3.8 mmol/L (3.5-5.1); Sodium 139 mmol/L (136-145); Total Protein 7.0 g/dL (6.4-8.2)
[2025-02-13] VITALS: BP 117/76; PULSE 71; O2SAT 96
[2025-02-13 00:10] VITALS: PULSE 65; O2SAT 97
[2025-02-13 00:20] VITALS: PULSE 78; O2SAT 98
== END 2025-02-13 00:38 | disposition left against medical advice (07) ==
PROVIDERS: Emergency Provider Internal Medicine; PCP Family Medicine
DX: R07.9 Chest pain, unspecified (principal); Z53.29 Procedure and treatment not carried out because of patient's decision for other reasons; I25.10 Atherosclerotic heart disease of native coronary artery without angina pectoris; E11.9 Type 2 diabetes mellitus without complications; I25.2 Old myocardial infarction; Z79.4 Long term (current) use of insulin; Z79.85 Long-term (current) use of injectable non-insulin antidiabetic drugs; Z79.84 Long term (current) use of oral hypoglycemic drugs; J44.9 Chronic obstructive pulmonary disease, unspecified
CPT/HCPCS: 36415; 71045; 80053; 84484; 85025; 93005; 99285

== ENCOUNTER 2025-04-01 17:30 | Emergency (ER) | payer OTHER, SELFPAY ==
[2025-04-01 17:34] VITALS: BP 117/71; PULSE 85; TEMP 37.2; O2SAT 97; BMI 45.7
--- NOTE | 2025-04-01 17:44 | ED.SKABFB1 ---
HPI - Skin/Abscess/Foreign Bdy General Chief complaint: Skin/Abscess/Foreign Body Stated complaint: ABCESS UNDER HER BELLY Time Seen by Provider: 04/01/25 17:34 Source: patient Mode of arrival: walk-in Limitations: no limitations History of Present Illness HPI narrative: 39 year old female presents to the ED for lower abdominal discomfort due to an abscess. Reports hx HS. States onset was one month ago. It has been increasing in size. It did have drainage the first few days. Denies fever, chills, injury. Denies chance of . She is accompanied by family. Related Data Home Medications ?Medication ?Instructions ?Recorded ?Confirmed albuterol sulfate 2.5 mg/3 mL 2.5 mg inhalation Q8H PRN 11/15/24 04/01/25 (0.083 %) solution for nebulization shortness of breath or wheezing albuterol sulfate 90 mcg/actuation 2 puff inhalation Q6H PRN 11/15/24 04/01/25 aerosol inhaler shortness of breath or wheezing aspirin 81 mg tablet,delayed 81 mg PO DAILY 11/15/24 04/01/25 release atenolol 50 mg tablet 50 mg PO DAILY 11/15/24 04/01/25 atorvastatin 40 mg tablet 40 mg PO BEDTIME 11/15/24 04/01/25 buprenorphine 8 mg-naloxone 2 mg 1 tab sublingual DAILY 11/15/24 04/01/25 sublingual tablet buspirone 30 mg tablet 30 mg PO TID 11/15/24 04/01/25 dulaglutide 3 mg/0.5 mL 3 mg subcut .weekly 11/15/24 04/01/25 subcutaneous pen injector (Trulicity) empagliflozin 25 mg tablet 25 mg PO DAILY 11/15/24 04/01/25 (Jardiance) ergocalciferol (vitamin D2) 1,250 50,000 unit PO .weekly 11/15/24 04/01/25 mcg (50,000 unit) capsule gabapentin 100 mg capsule 400 mg PO DAILY 11/15/24 04/01/25 hydrochlorothiazide 25 mg tablet 25 mg PO DAILY 11/15/24 04/01/25 insulin glargine 100 unit/mL (3 40 unit subcut BEDTIME 11/15/24 04/01/25 mL) subcutaneous pen (Lantus Solostar U-100 Insulin) metformin 1,000 mg tablet 1,000 mg PO BID 11/15/24 04/01/25 oxybutynin chloride 5 mg 5 mg PO DAILY 11/15/24 04/01/25 tablet,extended release 24 hr prazosin 5 mg capsule 5 mg PO DAILY 11/15/24 04/01/25 quetiapine 200 mg tablet 150 mg PO BEDTIME 11/15/24 04/01/25 Previous Rx's ?Medication ?Instructions ?Recorded cephalexin 500 mg capsule 500 mg PO Q6H 7 days #28 caps 04/01/25 sulfamethoxazole 800 1 tab PO BID #14 tabs 04/01/25 mg-trimethoprim 160 mg tablet (Bactrim DS) Allergies Allergy/AdvReac Type Severity Reaction Status Date / Time No Known Drug Allergies Allergy Verified 02/12/25 21:26 Review of Systems ROS Constitutional Denies: fever or chills Respiratory Denies: shortness of breath Integumentary/Breast Reports: redness, skin pain, skin tenderness and new lesion PFSH PFSH Social History Little interest or pleasure in doing things: not at all Feeling down, depressed, or hopeless: not at all Exam Constitutional Vital Signs, click to edit/add: Last Vital Signs Temp 99.0 F 04/01/25 17:34 Pulse 85 04/01/25 17:34 Resp 18 04/01/25 17:34 BP 117/71 04/01/25 17:34 Pulse Ox 97 04/01/25 17:34 O2 Del Method Room Air 04/01/25 17:34 Common normals: no apparent distress and oriented x3 General appearance: cooperative [facility] Common normals: moist oral mucous membranes Eye Common normals: conjunctivae normal and no scleral icterus Neck & C-Spine Common normals: supple Chest Chest: symmetrical chest wall rise Respiratory Common normals: normal respiratory effort Effort & inspection: able to speak in complete sentences and symmetric chest movement Cardio Common normals: regular rate GI Other: Erythematous, minimally raised, tender area to lower abdomen near skin fold. I and D indicated. Purulent drainage expressed from light palpation. Area approx 2 cm x 2 cm. Neuro Common normals: oriented x3 and moves all extremities Sensorium/orientation: awake and alert Speech: speech normal Course Vital Signs Vital signs: Vital Signs Temperature 99.0 F 04/01/25 17:34 Pulse Rate 85 04/01/25 17:34 Respiratory Rate 18 04/01/25 17:34 Blood Pressure 117/71 04/01/25 17:34 Pulse Oximetry 97 04/01/25 17:34 Oxygen Delivery Method Room Air 04/01/25 17:34 Temperature 99.0 F 04/01/25 17:34 Pulse Rate 85 04/01/25 17:34 Respiratory Rate 18 04/01/25 17:34 Blood Pressure 117/71 04/01/25 17:34 Pulse Oximetry 97 04/01/25 17:34 Oxygen Delivery Method Room Air 04/01/25 17:34 MDM - Skin/Abscess/Foreign Bdy MDM Narrative Medical decision making narrative: I and D was completed. The patient tolerated the procedure well. Prescriptions were provided for Bactrim and Keflex. Follow up with pcp for a recheck, further evaluation and treatment. Warm, moist compresses were discussed. Return to the ED if condition worsens. Wound culture pending. Medical Records Attestation: I reviewed the patient's medical records. Discharge Plan Discharge Chief Complaint: Skin/Abscess/Foreign Body Clinical Impression: Abscess of skin or subcutaneous tissue Patient Disposition: Home, Self-Care Time of Disposition Decision: 18:04 Condition: Good Mode of Transportation: Private Vehicle Prescriptions / Home Meds: New sulfamethoxazole-trimethoprim [Bactrim DS] 800-160 mg tablet 1 tab PO BID Qty: 14 0RF cephalexin 500 mg capsule 500 mg PO Q6H 7 Days Qty: 28 0RF No Action albuterol sulfate 2.5 mg /3 mL (0.083 %) solution for nebulization 2.5 mg inhalation Q8H PRN (Reason: shortness of breath or wheezing) albuterol sulfate 90 mcg/actuation HFA aerosol inhaler 2 puff INHALATION Q6H PRN (Reason: shortness of breath or wheezing) aspirin 81 mg tablet,delayed release (DR/EC) 81 mg PO DAILY atenolol 50 mg tablet 50 mg PO DAILY atorvastatin 40 mg tablet 40 mg PO BEDTIME buprenorphine-naloxone 8-2 mg tablet, sublingual 1 tab SUBLINGUAL DAILY buspirone 30 mg tablet 30 mg PO TID Trulicity 3 mg/0.5 mL pen injector 3 mg SUBCUT .weekly Jardiance 25 mg tablet 25 mg PO DAILY ergocalciferol (vitamin D2) 1,250 mcg (50,000 unit) capsule 50,000 unit PO .weekly gabapentin 100 mg capsule 400 mg PO DAILY hydrochlorothiazide 25 mg tablet 25 mg PO DAILY insulin glargine [Lantus Solostar U-100 Insulin] 100 unit/mL (3 mL) insulin pen 40 unit SUBCUT BEDTIME metformin 1,000 mg tablet 1,000 mg PO BID oxybutynin chloride 5 mg tablet extended release 24hr 5 mg PO DAILY prazosin 5 mg capsule 5 mg PO DAILY quetiapine 200 mg tablet 150 mg PO BEDTIME Print Language: [place]ian Instructions: Abscess (ED), Incision and Drainage (ED) Additional Instructions: Return to the ED for worsening symptoms. Referrals: BILL DAN [Primary Care Provider, Unknown] - 1 week Procedures ED ID Incision & Drainage I&D Type: abcess Site: abdomen Anesthetic used: without epi Technique: incised with #11 blade Amount of fluid (mL): 7 Packing used: none
--- OUTSIDE RECORDS SUMMARY | 2025-04-01 17:52 | XMS_ITS | CCD ---
Author Organization [facility] CliniSyfl Care Team Providers Care Clinical Laboratory Director Name Role Phone LAYO BILLS Admitting Unavailable LAYO BILLS Attending Unavailable HOUSE, SANJEEV Referring Unavailable HOUSE, SANJEEV Primary Care Unavailable [place] Procedure Practitioner Unavailab LAYO Faith Surgeon Unavailable [place] Procedure Practitioner Unavailab TONY Linares Surgeon Unavailable [...] VALLEJO Consulting Unavailable ANDERS BHARDWAJ Attending Unavailable [facility] DR VICTORIA Primary Care Unavailable JENNINGS, DR RAOUL Barth Consulting Unavailable ANDERS BHARDWAJ [...] Emergency Provider DO Stephane Alonso Emergency Provider DO Bill Dan Primary Care Provider ROCCO Elaine Attending Provider DO Bill Dan Primary Care Provider Lesia [facility] [place] [place] Emergency Provider Kendrick Joya Unavailable DO Bill Dan Primary Care Provider MD Mc Duran Attending Provider DO Bill Dan Attending Provider ROCCO Elaine Referring Provider Bill Dan MD Primary Care Provider Mely Steinberg MD Unavailable Bill Dan DO Primary Care Provider NON STAFF Primary Care Provider Unavailabl e DO Gavin [facility] Emergency Provider DO Bill Dan Primary Care Provider MD Mc Duran Attending Provider DO Bill Dan Referring Provider MD Nigel Lawson Attending Provider DO Bill Dan Primary Care Provider MD Mc Duran Attending Provider MD Mely Steinberg Attending Provider DO Bill Dan Primary Care Provider MD Mc Duran Attending Provider MD Mc Duran Attending Provider [phone] ROCCO Elaine Attending Provider Bill Dan DO Primary Care Provider Molly Elaine APRN Attending Provider Mc Duran MD Attending Provider Earnestine Alonso APRN Emergency Provider MELY STEINBERG Attending Unavailable MELY STEINBERG Referring Unavailable NIGEL LAWSON Attending Unavailable ALDEN LIN Attending Unavailable Bill Dan MD Primary Care Provider Bill Dan DO Primary Care Provider Bill Dan Primary Care Unavailable Earnestine Alonso Attending Unavailable Earnestine Alonso Admitting Unavailable Bill Dan Primary Care Unavailable Molly Elaine Attending Unavailable Molly Elaine Admitting Unavailable Bill Dan Primary Care Unavailable Mc Duran Attending Unavailab Mc Antony Admitting Unavailab Mely Linares Attending Unavailable Mely Steinberg Admitting Unavailable Bill Dan Primary Care Unavailable WALDO SOW Attending Unavailable SVETA GARNICA Referring Unavailable BILL DAN Primary Care Unavailabl e Allergies Allergy ClassificationReported Allergen(s)Allergy TypeDate of OnsetReaction(s) Facility (1 source)metFORMINDrug [id number] [facility] Medications Current Medications MedicationDrug Class(es)DatesSig (Normalized)Sig (Original)acetaminophen 325 mg / HYDROcodone bitartrate 5 mg oral tablet (7 sources)Opioid AgonistStart: 02-23-2020 End: 62-06-5480idpx 1 tablet by mouth every six hours as needed for pain, then take 1 tablet by mouth as needed for painHYDROcodone-acetaminophen (NORCO) 5-325 MG per tablet Indications: Non-intractable vomiting with nausea, unspecified vomiting type Take 1 tablet by mouth every 6 hours as needed for Pain for up to 3 days. Intended supply: 3 days. Take lowest dose possible to manage pain 6 tablet 0 02/23/2020 02/26/2020 ActiveStart: 02-23-2020 End: 18-26-2748QWKWQatssdk-acetaminophen (NORCO) 5-325 MG per tablet 1 tablet Start: 16-99-8955avogjwssrru-acetaminophen (NORCO) tablet 5-325 mg (STARTER PACK)Start: 10-28-2016 End: 07-61-4897vnky 1 tablet by mouth every four hours as needed for pain HYDROcodone-acetaminophen (NORCO) 5-325 MG per tablet Take 1 tablet by mouth every 4 hours as needed for Pain . 10 tablet 0 10/28/2016 02/23/2020 Discontinued (LIST CLEANUP)albuterol 0.83 mg/ml inhalation solution (20 sources)beta2-Adrenergic AgonistStart: 09-09-2024 End: 99-39-0525obdhtkfzx (2.5 MG/3ML) 0.083% nebulizer solution Indications: Bronchitis with asthma, acute ([facility]/HCC) Take 3 mL (2.5 mg) by nebulization every 6 (six) hours if needed for wheezing or shortness of breath 90 mL 09/09/2024 10/09/2024 ActiveStart: 03-17-9418vgxr 2.5 mg by inhalation every four to six hours as needed for wheezingAlbuterol Sulfate 2.5 mg /3 mL (0.083 %) solution for nebulization Active 2.5 MG INHALATION EVERY 4-6 HOURS as needed for shortness of breath or wheezing June 04, 2024 12:00amStart: 03-02-2024 End: 83-57-1941ezyy 1 puff(s) by mouth every four hours as neededAlbuterol Sulfate 90 mcg/actuation HFA aerosol inhaler Active 0 .ROUTE .COMPLEX April 21, 2024 8:53am INHALE 1 PUFF BY MOUTH EVERY 4 HOURS NEEDEDStart: 97-73-0364phpw 1 puff(s) by inhalation every four hours as neededAlbuterol Sulfate HFA 108 (90 Base) MCG/ACT 1 puff as needed Inhalation every 4 hrs PRN Jul, ActiveStart: 57-74-7345nvzx 1 puff(s) by inhalation every four hours as neededAlbuterol Sulfate HFA 108 (90 Base) MCG/ACT 1 puff as needed Inhalation every 4 hrs PRN Jul, ActiveStart: 03-29-2020 End: 73-28-8871pzmz 1 puff(s) by inhalation every six hoursAlbuterol Sulfate (Proair Hfa) 90 mcg/actuation HFA aerosol inhaler Discontinued 2 PUFF INHALATION Every 6 hours January 19, 2022 11:00pm April 29, 2023 12:52pmtake 2 puff(s) by inhalation every six hoursalbuterol 90 mcg/actuation inhaler Inhale 2 puffs every 6 hours. Activetake 2 puff(s) by inhalation every six hoursalbuterol HFA 90 mcg/act inhaler Inhale 2 puffs every 6 (six) hours ActiveAlbuterol Sulfate (2.5 MG/3ML) 0.083% 3 ml as needed Inhalation every 6 hrs PRN Activetake 1 puff(s) by mouth every four hours as neededVentolin HFA 108 (90 Base) MCG/ACT INHALE ONE PUFF BY MOUTH EVERY 4 HOURS NEEDED for 33 days ActiveAlbuterol Sulfate (2.5 MG/3ML) 0.083% 3 ml as needed Inhalation every 6 hrs PRN Active albuterol sulfate HFA 108 (90 BASE) MCG/ACT inhaler Inhale 2 puffs into the lungs as needed for Wheezing 0 Activealbuterol sulfate HFA 108 (90 BASE) MCG/ACT inhaler Inhale 2 puffs into the lungs as needed for Wheezing 0 Activealbuterol 0.833 mg/ml / ipratropium bromide 0.167 mg/ml inhalation solution (7 sources)Anticholinergic, beta2-Adrenergic AgonistStart: 30-06-8675nylm 3 mL by inhalation every four to six hours as neededipratropium-albuterol (DUONEB) 0.5-2.5 (3) MG/3ML SOLN nebulizer solution Inhale 3 mLs into the lungs every 4-6 hours as needed for Shortness of Breath 100 vial 1 10/21/2018 Activeaspirin 81 mg delayed release oral tablet (20 sources)Platelet Aggregation Inhibitor, Nonsteroidal Anti-inflammatory Drug Start: 02-15-2022 End: 07-73-6857ziiy 1 tablet by mouth once dailyaspirin 81 mg EC tablet Indications: Mild CAD , NSTEMI, initial episode of care (Multi) Take 1 tablet (81 mg) by mouth once daily. 90 tablet 3 10/01/2023 ActiveStart: 01-22-2022 End: 91-19-0796qbxe 1 capsule by mouth once daily in the morningAspirin 81 mg capsule Active 81 MG PO Every morning January 20, 2024 11:00pmtake 1 tablet by mouth every twenty-four hoursAspirin 81 MG 1 tablet Orally Once a day Active atenolol 50 mg oral tablet (20 sources)beta-Adrenergic BlockerStart: 03-09-2014 End: 53-62-6748zxkc 1 tablet by mouth once dailyatenolol (Tenormin) 50 mg tablet Indications: Syndrome X (cardiac) Take 1 tablet (50 mg) by mouth once daily. 90 tablet 3 09/29/2024 09/29/2025 Activeatorvastatin 40 mg oral tablet (20 sources)HMG-CoA Reductase InhibitorStart: 55-02-3447muuy 1 tablet by mouth once daily at bedtimeatorvastatin (Lipitor) 40 mg tablet Indications: Pure hypercholesterolemia TAKE 1 TABLET BY MOUTH EVERY NIGHT AT BEDTIME 90 tablet 3 04/20/2024 ActiveStart: 01-22-2022 End: 68-83-5050hobl 1 tablet by mouth at bedtimeatorvastatin (Lipitor) 40 MG tablet Take 40 mg by mouth at bedtime 06/10/2023 ActiveAustedo XR 30 mg tablet extended release 24 hr (1 source)Start: 12-95-1120pqfx 1 tablet by mouth once dailyAustedo XR 30 mg tablet extended release 24 hr Take 1 tablet by mouth once daily. 04/06/2024 ActiveAustedo XR 30 MG tablet sustained-release 24 hour (7 sources)Start: 17-54-7692bdbg 1 tablet by mouth once dailyAustedo XR 30 MG tablet sustained-release 24 hour Take 1 tablet by mouth Daily 04/06/2024 Active Blood Glucose Monitoring Suppl (ONE TOUCH ULTRA 2) w/Device kit (15 sources)Start: 48-65-2948Wevlb Glucose Monitoring Suppl (ONE TOUCH ULTRA 2) w/Device kit 10/03/2022 ActiveStart: 82-89-8253Cfqox Glucose Monitoring Suppl (ONE TOUCH ULTRA 2) w/Device kitbuprenorphine 8 mg / naloxone 2 mg sublingual film (20 sources)Partial Opioid Agonist, Opioid AntagonistStart: 03-31-2024 Buprenorphine-Naloxone (Suboxone) 8-2 mg film Active 2 FILM BUCCAL Daily March 30, 2024 11:00pmplace 1 film on inside of (each) cheekStart: 04-29-2023 buprenorphine-naloxone (Suboxone) 12-3 MG per sublingual film Q24H 04/29/2023 ActiveStart: 04-29-2023 End: 19-67-3678Gugglmjyaucpd-Naloxone (Suboxone) 12-3 mg Film Discontinued 1 FILM BUCCAL Q24H April 29, 2023 12:00am March 31, 2024 12:56pmStart: 01-20-2022 End: 84-89-7522Yvzkudrjxytyy-Naloxone 2-0.5 mg Tablet, Sublingual Discontinued 1 TAB SUBLINGUAL Bedtime January 19, 2022 11:00pm April 29, 2023 12:53pm Start: 01-20-2022 End: 26-23-5876Wziharfakxwro-Naloxone (Suboxone) 4-1 mg Film Discontinued 1 FILM SUBLINGUAL Daily January 19, 2022 11:00pm April 29, 2023 12:53pm buprenorphine-naloxone (Suboxone) 2-0.[address] 1 tablet under the tongue once daily. Active End: 85-62-8372Cwzvxlxu 2-0.[address] mg per subling[address] film Place under the tongue. 10/01/2023 Discontinued (Dose adjustment)Suboxone 12-3 MG 1 film under the tongue and allow to dissolve Sublingual Once a day Activetake 2 tablets by mouth every twenty-four hoursBuprenorphine HCl-Naloxone HCl 2-0.5 MG 2 tablets under the tongue and allow to dissolve SublingualOnce a day ActiveSuboxone 2-0.5 MG Sublingual Film sublingual at bedtime Quantity: 0 Refills: 0 Ordered: 58-Fma-6290LO ActiveSuboxone 4-1 MG 1 film under the tongue and allow to dissolve Sublingual Once a day ActivebusPIRone hydrochloride 30 mg oral tablet (20 sources)Start: 66-74-3794faze 1 tablet by mouth three times dailyBuspirone 30 mg tablet Active 30 MG PO Three times daily January 20, 2024 11:00pmStart: 24-94-5345dgzMUWako (Buspar) 15 MG tablet 02/17/2023 ActiveStart: 01-20-2022 End: 04-66-0109wxag 3 tablets by mouth twice dailyBuspirone 10 mg tablet Discontinued 30 MG PO 2 times daily January 19, 2022 11:00pm January 21, 2024 8:19amStart: 01-20-2022 End: 58-52-3389nxsl 30 mg by mouth twice dailyBuspirone Discontinued 30 MG PO 2 times daily January 20, 2022 12:00am January 21, 2024 9:19amStart: 01-20-2022 End: 39-04-1080ifnn 10 mg by mouth twice dailyBuspirone Active 10 MG PO 2 times daily January 20, 2022 12:00amContinuous Glucose Sensor (Dexcom G7 Sensor) misc (7 sources)Start: 95-20-6221Cwucrgiohz Glucose Sensor (Dexcom G7 Sensor) misc 1 each 04/19/2024 ActiveDeutetrabenazine (3 sources)Start: 73-79-0313mbml 1 tablet by mouth once dailyDeutetrabenazine (Austedo Xr) 30 mg tablet extended release 24 hr Active 30 MG PO Daily March 30, 2024 11:00pmStart: 87-95-7190koow 1 tablet by mouth once daily Deutetrabenazine (Austedo Xr) 30 mg tablet extended release 24 hr Active 30 MG PO Daily March 31, 2024 12:00amdoxepin hydrochloride 50 mg oral capsule (20 sources)Tricyclic AntidepressantStart: 07-17-2023 End: 48-51-3917fiurfmj (SINEquan) 50 mg capsule 1 capsule (50 mg) once daily. 07/17/2023 10/06/2024 Discontinued (Therapy completed)Start: 04-29-2023 End: 82-91-6003xnyjiuc (SINEquan) 10 MG capsule Daily 04/29/2023 Active0.5 ml dulaglutide 3 mg/ml auto-injector (20 sources)GLP-1 Receptor AgonistStart: 06-05-2023 End: 31-65-5435Dedoxnopt 1.5 MG/0.5ML solution pen-injector 06/05/2023 07/14/2024 Discontinued (Dose adjustment)Start: 04-29-2023 End: 43-08-1917Zdwahaicgnv (Trulicity) 0.75 mg/0.5 mL pen injector Discontinued 1.5 MG SUBCUT .weekly April 29, 2023 12:00am August 07, 2023 9:39amStart: 07-20-4778Tgibgjgwzvr (Trulicity) 0.75 mg/0.5 mL pen injector Active MG SUBCUT April 29, 2023 12:00amStart: 80-99-7907ozbomd 0.75 mg by subcutaneous injection every weekTrulicity 0.75 MG/0.5ML 0.75 mg Subcutaneous once a week for 30 days October, ActiveDulaglutide (Trulicity) 3 mg/0.5 mL pen injector (5 sources)Start: 71-34-8099Lmgkaymwzzq (Trulicity) 3 mg/0.5 mL pen injector Active 3 MG SUBCUT every week January 20, 2024 11:00pmStart: 01-21-2024 Dulaglutide (Trulicity) 3 mg/0.5 mL pen injector Active 3 MG SUBCUT every week January 21, 2024 12:00amDulaglutide (Trulicity) 3 MG/0.5ML solution auto-injector (8 sources)Start: 58-29-4477gtgbii 3 mg by subcutaneous injection every week Dulaglutide (Trulicity) 3 MG/0.5ML solution auto-injector Indications: Type 2 diabetes mellitus with hyperglycemia, with long-term current use of insulin (CMS/HCC) Inject 3 mg under the skin 1 (one) time per week 12 mL 1 03/27/2024 ActiveStart: 03-27-2024 End: 00-26-4326ffttst 3 mg by subcutaneous injection every weekDulaglutide (Trulicity) 3 MG/0.5ML solution auto-injector Indications: Type 2 diabetes mellitus with hyperglycemia, with long-term current use of insulin (CMS/HCC) Inject 3 mg under the skin 1 (one) time per week 12 mL 1 03/27/2024 06/25/2024 Activeempagliflozin 25 mg oral tablet (15 sources)Sodium-Glucose Cotransporter 2 InhibitorStart: 09-10-2023 End: 64-35-7040lhop 1 tablet by mouth once dailyempagliflozin (Jardiance) 25 MG Indications: Type 2 diabetes mellitus with hyperglycemia, with long-term current use of insulin (CMS/HCC) Take 1 tablet (25 mg) by mouth Daily 90 tablet 1 08/31/2024 02/27/2025 Activeergocalciferol 1.25 mg oral capsule (13 sources)Provitamin D2 CompoundStart: 62-36-7060wdzo 1 capsule by mouth every weekergocalciferol (Vitamin D2) 1.25 MG (01313 UT) capsule Indications: Type 2 diabetes mellitus with hyperglycemia, with long-term current use of insulin (CMS/HCC) TAKE 1 CAPSULE BY MOUTH ONCE WEEKLY 12capsule 3 04/26/2024 Active escitalopram 10 mg oral tablet (2 sources)Serotonin Reuptake InhibitorStart: 63-78-8466nlav 1 tablet by mouth every twenty-four hoursEscitalopram Oxalate 10 MG 1 tablet Orally Once a day for 30 day(s) Jul, Active2 ml famotidine 10 mg/ml injection (8 sources)Histamine-2 Receptor AntagonistStart: 20-18-3027pklmczkglx (PEPCID) injection 20 mgStart: 07-10-2016 End: 93-91-5816rmpr 1 tablet by mouth twice dailyfamotidine (PEPCID) 20 MG tablet Take 1 tablet by mouth 2 times daily 60 tablet 3 07/10/2016 01/23/2021 Discontinued (LIST CLEANUP)60 actuat formoterol fumarate 0.005 mg/actuat / mometasone furoate 0.2 mg/actuat metered dose inhaler (20 sources)Corticosteroid, beta2-Adrenergic Agonisttake 2 puff(s) by inhalation twice dailyDulera 200-5 mcg/actuation inhaler Inhale 2 puffs 2 times a day. Activetake 2 puff(s) by inhalation in the morningDulera 200-5 MCG/ACT inhaler Inhale 2 puffs in the morning and 2 puffs in the evening. Activetake 2 puff(s) by mouth twice dailyDulera 200-5 MCG/ACT INHALE TWO PUFFS BY MOUTH TWICE A DAY for 30 Activetake 2 puff(s) by mouth twice dailyDulera 200-5 MCG/ACT INHALE TWO PUFFS BY MOUTH TWICE A DAY for 30 Activetake 1 puff(s) by inhalation twice daily mometasone-formoterol (DULERA) 100-5 MCG/ACT inhaler Inhale 1 puff into the lungs 2 times daily 0 Activegabapentin 100 mg oral capsule (14 sources)Anti-epileptic AgentStart: 81-78-2350tjyh 1 capsule by mouth at bedtimegabapentin (Neurontin) 100 MG capsule Take 1 capsule by mouth at bedtime 03/31/2024 ActiveStart: 10-17-2016 End: 99-05-4023tuacuqdypf (NEURONTIN) 300 MG capsule 300 mg 2 times daily 0 10/17/2016 02/23/2020 Discontinued (LIST CLEANUP)Glucometer Device (6 sources)Start: 64-38-4349Fyigmgrpkj Device as directed as directed as directed for as directed October, ActivehydroCHLOROthiazide 25 mg oral tablet (1 source)Thiazide DiureticStart: 10-06-2024 End: 50-29-7368lhfc 1 tablet by mouth every other dayhydroCHLOROthiazide (HYDRODiuril) 25 mg tablet Indications: Localized edema Take 1 tablet (25 mg) by mouth every other day. 45 tablet 3 10/06/2024 10/06/2025 Activehydrocortisone 25 mg/ml topical cream (19 sources)CorticosteroidStart: 46-51-3811osnamqohmljkqk 2.5 % cream 06/18/2023 ActiveStart: 52-81-8317Iojdzmntidfgwt 2.5 % 1 application as needed Externally every 12 hrs Jun, Active3 ml insulin detemir 100 unt/ml pen injector (2 sources)Insulin AnalogStart: 31-41-0109Vqzbkfb FlexPen 100 UNIT/ML 15-30 units Subcutaneous once a day for 30 days 30 days Jul, Active1 ml medroxyPROGESTERone acetate 150 mg/ml injection (15 sources)ProgestinStart: 83-09-9289sayamijPGEBRDPLOjsc (Depo-Provera) 150 MG/ML injection Indications: Abnormal vaginal bleeding One ml every 10 weeks 1 mL 4 10/15/2023 ActiveStart: 07-09-2023 End: 48-78-9328ziucdgnQPCPGKGJVcjp (Depo-Provera) 150 MG/ML injection Indications: Abnormal vaginal bleeding Inject 1 mL (150 mg) into the shoulder, thigh, or buttocks every 3 (three) months 1 mL 4 07/09/2023 10/07/2023 Wwbbhw58 hr metFORMIN hydrochloride 500 mg extended release oral tablet (20 sources)BiguanideStart: 06-24-2024 End: 30-23-7249rdhw 2 tablets by mouth every twenty-four hours in the morning metFORMIN XR (Glucophage-XR) 500 MG 24 hr tablet Indications: Type 2 diabetes mellitus with hyperglycemia, unspecified whether mcc insulin use (CMS/HCC) Take 2 tablets (1,000 mg) by mouth in the morning and 2 tablets (1,000 mg) before bedtime. Do not crush, chew, or split.. 120 tablet 1 06/24/2024 09/22/2024 ActiveStart: 24-29-4576fkgq 1 tablet by mouth twice dailyMetformin 1,000 mg tablet Active 1000 MG PO Twice daily January 20, 2024 11:00pmStart: 12-03-2023 End: 76-54-7174lvcj 1 tablet by mouth twice dailyMetformin 500 mg tablet extended release 24 hr Discontinued 0 .ROUTE .COMPLEX 180 December 03, 2023 11:50am January 21, 2024 8:17am TAKE 1 TABLET BY MOUTH TWICE A DAYStart: 08-15-2023 metFORMIN XR 500 mg 24 hr tablet 2 tablets (1,000 mg) 2 times daily (morning and late afternoon). 08/15/2023 ActiveStart: 37-37-4779mpxXTGHCZ XR (Glucophage-XR) 500 MG 24 hr tablet 06/05/2023 ActiveStart: 01-22-2022 End: 41-45-3544npvc 1 tablet by mouth twice dailyMetformin 500 mg tablet extended release 24hr Discontinued 500 MG PO Twice daily January 21, 2022 11:00pm December 03, 2023 11:50amStart: 01-20-2022 End: 26-83-9372ekre 1 tablet by mouth once dailyMetformin 500 mg tablet extended release 24 hr Discontinued 500 MG PO Daily January 19, 2022 11:00pm January 20, 2022 9:29amStart: 56-92-3856alre 1 tablet by mouth every twelve hours metFORMIN HCl ER 500 MG 1 tablet Orally twice a day Jul, ActiveStart: 35-48-2561zihk 1 tablet by mouth every twenty-four hoursmetFORMIN HCl ER 500 MG 1 tablet with evening meal Orally Once a day Jul, Active End: 64-33-2170drsh 1 tablet by mouth twice daily at mealtimemetFORMIN (Glucophage) 500 mg tablet Take 1 tablet (500 mg) by mouth 2 times a day with meals. 10/01/2023 Discontinued (Dose adjustment)methylPREDNISolone (3 sources)CorticosteroidStart: 51-37-4870fsebthKCYSVXDhbekp (Medrol Dospak) 4 MG tablets Indications: Bronchitis with asthma, acute (CMS/HCC) Follow schedule on package instructions 21 tablet 09/09/2024 ActiveMometasone-Formoterol (Dulera) 200-5 mcg/actuation HFA aerosol inhaler (20 sources)Start: 80-94-4376vyih 1 puff(s) by inhalation twice dailyMometasone- Formoterol (Dulera) 200-5 mcg/actuation HFA aerosol inhaler Active 2 PUFF INHALATION Twice daily January 20, 2024 11:00pmStart: 33-75-1546drxl 1 puff(s) by inhalation twice dailyMometasone-Formoterol (Dulera) 200-5 mcg/actuation HFA aerosol inhaler Active 2 PUFF INHALATION Twice daily January 21, 2024 12:00am Start: 01-10-2024 End: 84-17-3960acnt 2 puff(s) by mouth twice dailyMometasone-Formoterol (Dulera) 200-5 mcg/actuation HFA aerosol inhaler Discontinued 0 .ROUTE .COMPLEX 39 January 10, 2024 7:02am January 21, 2024 8:38am INHALE 2 PUFFS BY MOUTH TWICE A DAY Start: 01-10-2024 End: 74-72-8956myva 2 puff(s) by mouth twice dailyMometasone-Formoterol (Dulera) 200-5 mcg/actuation HFA aerosol inhaler Discontinued 0 .ROUTE .COMPLEX 39 January 10, 2024 8:02am January 21, 2024 9:38am INHALE 2 PUFFS BY MOUTH TWICE A DAY Start: 03-29-2020 End: 94-18-9242nbin 1 puff(s) by inhalation twice dailyMometasone-Formoterol (Dulera) 200-5 mcg/actuation HFA aerosol inhaler Discontinued 2 PUFF INHALATION Twice daily March 28, 2020 11:00pm January 10, 2024 7:02amStart: 03-29-2020 End: 03-82-4649joln 1 puff(s) by inhalation twice dailyMometasone-Formoterol (Dulera) 200-5 mcg/actuation HFA aerosol inhaler Discontinued 2 PUFF INHALATION Twice daily March 29, 2020 12:00am January 10, 2024 8:02amStart: 03-29-2020 take 1 puff(s) by inhalation twice dailyMometasone-Formoterol (Dulera) 200-5 mcg/actuation HFA aerosol inhaler Active 2 PUFF INHALATION Twice daily March 28, 2020 11:00pmStart: 57-28-5564pgks 1 puff(s) by inhalation twice daily Mometasone-Formoterol (Dulera) 200-5 mcg/actuation HFA aerosol inhaler Active 2 PUFF INHALATION Twice daily March 29, 2020 12:00am24 hr oxybutynin chloride 5 mg extended release oral tablet (20 sources)Cholinergic Muscarinic AntagonistStart: 06-24-2023 End: 50-10-7687xlhlwfkvzf XL (Ditropan-XL) 5 mg 24 hr tablet 1 tablet (5 mg) once daily. 06/24/2023 ActiveStart: 10-02-2022 End: 03-69-7104mjll 1 tablet by mouth once daily at bedtimeOxybutynin Chloride 5 mg tablet extended release 24hr Discontinued 5 MG PO Daily at bedtime January 012023 11:00pm April 07, 2024 7:47am TAKE 1 TABLET BY MOUTH DAILYprazosin 5 mg oral capsule (20 sources)alpha-Adrenergic BlockerStart: 80-22-5230hliemqkw (Minipress) 5 MG capsule Daily at bedtime 04/29/2023 Activetake 1 capsule by mouth every twenty- four hoursPrazosin HCl 2 MG 1 capsule at bedtime Orally Once a day Active predniSONE 20 mg oral tablet (1 source)Start: 96-26-6724htqn 2 tablets by mouth once dailyPrednisone 20 mg tablet Active 40 MG PO Daily 8 June 04, 2024 12:00amQUEtiapine 200 mg oral tablet (20 sources)Atypical AntipsychoticStart: 51-12-7723kfnx 1 tablet by mouth once daily at bedtimeQuetiapine (Seroquel) 200 mg tablet Active 200 MG PO Daily at bedtime March 30, 2024 11:00pmStart: 01-21-2024 End: 98-79-7712orec 1 tablet by mouth once daily at bedtimeQuetiapine 300 mg tablet Discontinued 300 MG PO Daily at bedtime January 20, 2024 11:00pm March 31, 2024 12:55pmStart: 85-88-4999QLJbjdjhwg (SEROquel) 100 mg tablet 1 tablet (100 mg) once daily at bedtime. 04/29/2023 ActiveStart: 04-29-2023 End: 03-95-2586Edlzilkvoo 100 mg tablet Discontinued 50 MG PO Daily at bedtime April 29, 2023 12:00am January 21, 2024 8:21amStart: 04-29-2023 End: 78-82-3134uvwv 50 mg by mouth once daily at bedtimeQuetiapine Discontinued 50 MG PO Daily at bedtime April 29, 2023 1:00am January 21, 2024 9:21am Start: 83-70-1840gjaq 10 mg by mouth once daily at bedtimeQuetiapine Active 10 MG PO Daily at bedtime April 29, 2023 12:00amStart: 04-02-2020 End: 50-68-7843ykrx 1 tablet by mouth at bedtimeQuetiapine 50 mg Tablet Discontinued 50 MG PO Bedtime 14 14 April 08, 2020 12:00am January 3:11amtake 1 tablet by mouth every twenty-four hoursSEROquel 200 MG 1 tablet at bedtime Orally Once a day ActiverifAMPin 300 mg oral capsule (2 sources)Rifamycin AntibacterialrifAMPin 300 MG as directed Orally Active Trulicity 3 mg/0.5 mL pen injector (2 sources)Start: 47-58-9730Hrskbwdzb 3 mg/0.5 mL pen injector every 7 days. 09/10/2023 Hvzfom22 hr venlafaxine 150 mg extended release oral capsule (20 sources)Serotonin and Norepinephrine Reuptake InhibitorStart: 60-22-2644vgns 1 capsule by mouth once daily in the morningVenlafaxine 150 mg capsule,extended release 24hr Active 150 MG PO Every morning April 292:00amStart: 95-23-4144mrlfvfdgtgy XR (Effexor-XR) 75 mg 24 hr capsule 1 capsule (75 mg) once daily. 11/06/2022 ActiveStart: 29-26-8443puxjjqdddap XR (Effexor XR) 75 MG 24 hr capsule 11/06/2022 ActiveStart: 04-08-2020 End: 89-64-7674snsw 1 capsule by mouth once daily at bedtimeVenlafaxine (Effexor Xr) 150 mg capsule,extended release 24hr Discontinued 150 MG PO Daily at bedtime January 20, 2022 3:10am January 20, 2022 5:06amStart: 04-02-2020 End: 15-65-4928zhee 1 capsule by mouth once daily at bedtimeVenlafaxine 75 mg Capsule,Extended Release 24hr Discontinued 75 MG PO Daily at bedtime April 01, 2020 11:00pm April 08, 2020 12:07pm Completed/Discontinued Medications MedicationDrug Class(es)DatesSig (Normalized)Sig (Original)albuterol sulfate HFA 108 (90 Base) MCG/ACT inhaler (4 sources)Start: 10-21-2018 End: 69-72-3611erxx 1-2 puff(s) by inhalation every four to six hoursalbuterol sulfate HFA 108 (90 Base) MCG/ACT inhaler 1-2 puffs every 4-6 hours when necessary shortness of breath or wheeze 1 Inhaler 2 10/21/2018 02/23/2020 Discontinued (LIST CLEANUP)Start: 38-45-5741lpgo 1-2 puff(s) by inhalation every four to six hoursalbuterol sulfate HFA 108 (90 Base) MCG/ACT inhaler 1-2 puffs every 4-6 hours when necessary shortness of breath or wheeze 1 Inhaler 2 10/21/2018 ActiveBudesonide-Formoterol Fumarate (SYMBICORT IN) (4 sources) End: 97-38-8048eypc 1 puff(s) by inhalation twice dailyBudesonide-Formoterol Fumarate (SYMBICORT IN) Inhale 1 puff into the lungs 2 times daily 0 02/23/2020 Discontinued (LIST CLEANUP)take 1 puff(s) by inhalation twice dailyBudesonide- Formoterol Fumarate (SYMBICORT IN) Inhale 1 puff into the lungs 2 times daily 0 Activebuprenorphine 2 mg sublingual tablet (1 source)Partial Opioid AgonistStart: 03-29-2020 End: 66-96-5266yxspmoriidaqd (SUBUTEX) SL tablet 8 mgcarBAMazepine 100 mg chewable tablet (7 sources)Mood Stabilizer End: 93-07-7960tcou 1 tablet by mouth three times dailycarBAMazepine (TEGRETOL) 100 MG chewable tablet Take 100 mg by mouth 3 times daily 0 01/23/2021 Disc ontinued (LIST CLEANUP)cephalexin 500 mg oral capsule (9 sources)Cephalosporin AntibacterialStart: 04-29-2023 End: 32-56-4757pdsn 2 capsules by mouth twice dailyCephalexin 500 mg capsule Discontinued 1000 MG PO Twice daily 40 April 29, 2023 12:00am June 24, 2023 10:26amStart: 04-29-2023 End: 69-52-0520qoav 1000 mg by mouth twice dailyCephalexin Discontinued 1000 MG PO Twice daily 40 April 29, 2023 1:00am June 24, 2023 11:26am chlorhexidine gluconate 40 mg/ml medicated liquid soap (4 sources)Start: 09-27-2016 End: 75-21-0111bucgmwtdsyxrt (HIBICLENS) 4 % external liquid Apply topically daily as needed. 1 Bottle 3 09/27/2016 02/23/2020 Discontinued (LIST CLEANUP) clindamycin 0.01 mg/mg topical gel (6 sources)Lincosamide AntibacterialStart: 10-21-2016 End: 24-78-8051vsbarxjzdjc (CLINDAGEL) 1 % geltake 1 capsule by mouth every twelve hoursClindamycin HCl 300 MG 1 capsule Orally every 12 hrs Active2 ml dicyclomine hydrochloride 10 mg/ml injection (2 sources)AnticholinergicStart: 02-23-2020 End: 16-48-3875xtkkhbvbpkt (BENTYL) injection 20 mgStart: 02-21-2020 End: 76-99-2596oxdwhjkhspm (BENTYL) injection 20 mgdoxycycline hyclate 100 mg oral tablet (13 sources)Tetracycline-class DrugStart: 04-04-2022 End: 74-01-4478ulbi 1 tablet by mouth twice dailyDoxycycline Hyclate 100 mg tablet Discontinued 100 MG PO Twice daily 20 April 03, 2022 11:00pm April 29, 2023 12:54pm2 ml fentaNYL 0.05 mg/ml injection (2 sources)Opioid AgonistStart: 02-23-2020 End: 18-12-3193mpcglWGD (SUBLIMAZE) injection 25 mcgStart: 02-23-2020 End: 56-15-3002rafvbANK (SUBLIMAZE) injection 50 mcgFLUoxetine 20 mg oral capsule (18 sources)Serotonin Reuptake InhibitorStart: 03-29-2020 End: 04-69-3554nekg 1 capsule by mouth once dailyFluoxetine 20 mg capsule Discontinued 20 MG PO Daily March 28, 2020 11:00pm April 02, 2020 1 0:17amhydrOXYzine pamoate 50 mg oral capsule (20 sources)AntihistamineStart: 03-29-2020 End: 38-19-2864Snxklvjklkd Pamoate (Vistaril) 50 mg capsule Discontinued 25 MG PO Three times daily as needed for Anxiety March 28, 2020 11:00pm April 29, 2023 12:55pm End: 86-54-1270uifx 1 capsule by mouth three times daily as neededhydrOXYzine pamoate (VistariL) 50 mg capsule Take 1 capsule (50 mg) by mouth 3 times a day as needed. 10/01/2023 Discontinued (Therapy completed) End: 55-17-6391sekx 1 capsule by mouth three times daily as neededhydrOXYzine (VISTARIL) 25 MG capsule Take 25 mg by mouth 3 times daily as needed for Itching 0 01/23/2021 Discontinued (LIST CLEANUP)ibuprofen 600 mg oral tablet (15 sources)Nonsteroidal Anti-inflammatory DrugStart: 10-04-2017 End: 31-40-8099xpyp 1 tablet by mouth every six hours as needed for pain ibuprofen (IBU) 600 MG tablet Take 1 tablet by mouth every 6 hours as needed for Pain 120 tablet 0 10/04/2017 02/23/2020 Discontinued (LIST CLEANUP)Start: 07-10-2016 End: 36-79-4423ilbh 1 tablet by mouth every eight hours as needed for pain ibuprofen (ADVIL;MOTRIN) 600 MG tablet Take 1 tablet by mouth every 8 hours as needed for Pain 60 tablet 2 07/10/2016 02/23/2020 Discontinued (LIST CLEANUP) End: 24-66-9288zgsc 3 tablets by mouth every six hours as needed for pain ibuprofen (ADVIL;MOTRIN) 200 MG tablet Take 600 mg by mouth every 6 hours as needed for Pain 0 01/23/2021 Discontinued (LIST CLEANUP)3 ml insulin glargine 100 unt/ml pen injector (16 sources)Insulin AnalogStart: 03-27-2024 End: 50-70-7979ueelyfr glargine (Lantus SoloStar) 100 UNIT/ML pen Indications: Type 2 diabetes mellitus with hyperglycemia, with long-term current use of insulin ([facility]) Inject 40 Units under the skin at bedtime 36 mL 1 03/27/2024 09/11/2024 Discontinued (Reorder)Start: 89-43-1866Nyviuwm Glargine (Lantus Solostar U-100 Insulin) 100 unit/mL (3 mL) insulin pen Active 40 UNIT SUBCUT Daily at bedtime January 20, 2024 11:00pmStart: 89-36-5481Hjuihh Solostar U-100 Insulin 100 unit/mL (3 mL) pen 09/10/2023 Active3 ml insulin glargine 100 unt/ml / lixisenatide 0.033 mg/ml pen injector (14 sources)Insulin AnalogStart: 07-24-2023 End: 31-32-5775xholqy 27 [IU] by subcutaneous injection once daily, then inject 31 [IU] by subcutaneous injection once dailyInsulin Glargine-Lixisenatide 100 unit-33 mcg/mL insulin pen Discontinued 31 UNIT SUBCUT Daily July 24, 2023 2:21pm January 21, 2024 8:23am increase to 27 units daily for a week, then increase to 31 units dailyStart: 07-24-2023 End: 51-83-8827Fergzjs Glargine-Lixisenatide 100 unit-33 mcg/mL insulin pen Discontinued 23 UNIT SUBCUT Daily July 24, 2023 12:00am July 24, 2023 2:22pm FreeTextSi units Subcutaneous once a day; Note: Source Status: Start30 days; Refills: 3; Provider: Eagle Hilario RStart: 46-10-3453qnifzz 23 [IU] by subcutaneous injection once dailySoliqua 100-33 UNT-MCG/ML 23 units Subcutaneous once a day for 30 days 30 days Jun, Activeiopamidol (ISOVUE-370) 76 % injection 75 mL (2 sources)Start: 02-23-2020 End: 54-48-1006ajldiilhx (ISOVUE-370) 76 % injection 75 mLStart: 02-21-2020 End: 60-12-7606pnxlhujoe (ISOVUE-370) 76 % injection 75 mLketorolac tromethamine 10 mg oral tablet (9 sources)Nonsteroidal Anti-inflammatory Drug, Cyclooxygenase InhibitorStart: 04-29-2023 End: 58-06-0432vsqw 1 tablet by mouth every six hours as needed for pain Ketorolac 10 mg tablet Discontinued 10 MG PO Q6H as needed for pain April 29, 2023 12:00am August 07, 2023 9:40amlurasidone hydrochloride 120 mg oral tablet (20 sources)Atypical AntipsychoticStart: 01-20-2022 End: 92-24-7783kkwr 1 tablet by mouth once dailyLurasidone (Latuda) 120 mg tablet Discontinued 120 MG PO Daily January 19, 2022 11:00pm April 29, 2023 12:55pmtake 1 tablet by mouth every twenty-four hoursLatuda 60 MG 1 tablet in the evening with food Orally Once a day Activemetoclopramide 5 mg oral tablet (13 sources)Dopamine-2 Receptor AntagonistStart: 07-10-2021 End: 29-37-0768inll 1 tablet by mouth 30 minutes before mealtimeMetoclopramide Hcl (Reglan) 5 mg tablet Discontinued 5 MG PO before meals July 10, 2021 12:00am January 20, 2022 5:06am administer 30 minutes before mealsmirtazapine 30 mg oral tablet (20 sources)Start: 09-04-2023 End: 58-19-1434uomm 1 tablet by mouth once daily at bedtimeMirtazapine 30 mg tablet Discontinued 30 MG PO Daily at bedtime January 20, 2024 11:00pm June 04, 2024 2:33pmStart: 04-29-2023 End: 14-37-5346wwaeskubepx (Remeron) 15 MG tablet Daily at bedtime 04/29/2023 Active1 ml morphine sulfate 4 mg/ml cartridge (3 sources)Opioid AgonistStart: 01-23-2021 End: 49-80-0550ljdchklg injection 4 mgStart: 02-23-2020 End: 95-94-4942rcfdvrhc injection 4 mgStart: 02-21-2020 End: 00-49-3286cycakzal injection 6 mgnaproxen 500 mg oral tablet (15 sources)Nonsteroidal Anti-inflammatory DrugStart: 04-04-2022 End: 45-18-1069endo 1 tablet by mouth twice daily as needed for painNaproxen 500 mg tablet Discontinued 500 MG PO Twice daily as needed for pain April 03, 2022 11:00pm April 29, 2023 12:55pm24 hr nicotine 0.875 mg/hr transdermal system (13 sources)Cholinergic Nicotinic AgonistStart: 04-08-2020 End: 16-25-8269rmwfh 1 dose transdermal route every twenty-four hoursNicotine 21 mg/24 hr Patch 24 Hour Discontinued 1 EACH TRANSDERML Daily April 08, 2020 12:00am January 20, 2022 5:06amStart: 04-08-2020 End: 98-90-2933Fgcndzey Discontinued 1 EACH TRANSDERML Daily April 08, 2020 1:00am January 20, 2022 6:06amondansetron 4 mg disintegrating oral tablet (20 sources)Serotonin-3 Receptor AntagonistStart: 07-10-2021 End: 64-62-9063ayse 1 tablet by mouth every six hours as needed for nausea and vomitingOndansetron 4 mg tablet,disintegrating Discontinued 4 MG PO Q6H as needed for nausea and vomiting [place] 12:00am January 20, 2022 5:06amStart: 01-23-2021 End: 89-93-0485ufehjttenpt (ZOFRAN) injection 4 mgStart: 02-23-2020 End: 79-86-2320fafclodqcik (ZOFRAN) injection 4 mgStart: 02-21-2020 End: 10-07-0562dqvt 1 tablet by mouth every eight hours as needed for nausea ondansetron (ZOFRAN ODT) 4 MG disintegrating tablet Take 1 tablet by mouth every 8 hours as needed for Nausea 8 tablet 0 02/23/2020 01/23/2021 Discontinued (LIST CLEANUP)Start: 02-21-2020 End: 50-18-5897hcwgvwrqgsi (ZOFRAN) injection 4 mg1 ml promethazine hydrochloride 25 mg/ml injection (1 source)PhenothiazineStart: 02-21-2020 End: 23-90-6859lzryrprdvxbm (PHENERGAN) injection 25 mgSITagliptin 100 mg oral tablet (20 sources)Dipeptidyl Peptidase 4 InhibitorStart: 10-13-2021 End: 33-53-4941ibim 1 tablet by mouth once dailySitagliptin Phosphate (Januvia) 100 mg tablet Discontinued 100 MG PO Daily January 19, 2022 11:00pm April 29, 2023 12:54pm50 ml sodium chloride 9 mg/ml injection (3 sources)Start: 01-23-2021 End: .9 % sodium chloride bolusStart: .9 % sodium chloride infusionStart: 02-21-2020 End: .9 % sodium chloride bolussulfamethoxazole 800 mg / trimethoprim 160 mg oral tablet (9 sources)Dihydrofolate Reductase Inhibitor Antibacterial, Sulfonamide AntimicrobialStart: 04-29-2023 End: 80-48-4727kdym 1 tablet by mouth twice dailySulfamethoxazole-Trimethoprim (Bactrim Ds) 800-160 mg tablet Discontinued 1 TAB PO Twice daily 22 03April 29, 2023 12:00am June 24, 2023 10:28amtraZODone hydrochloride 50 mg oral tablet (18 sources)Serotonin Reuptake InhibitorStart: 03-29-2020 End: 85-51-0290Yqlgvaomg 50 mg tablet Discontinued 50 MG PO Bedtime as needed for Sleep March 28, 2020 11:00pmAugust 2021 5:06am take 1 or 2 tabs End: 08-43-0163oatp 1 tablet by mouth once dailytraZODone (DESYREL) 100 MG tablet Take 100 mg by mouth nightly 0 01/23/2021 Discontinued (LIST CLEANUP) Problems Active Problems Problem ClassificationProblemDateDocumented DateEpisodic/ChronicAbdominal pain (16 sources)Abdominal pain; Translations: [Left flank pain]EpisodicAcute bronchitis (2 sources)Acute bronchitis; Translations: [Acute bronchitis, unspecified] 84-74-2626LjyjyxkqVskpqcmigqwsfb/social admission (2 sources)Patient encounter status; Translations: [Dietary counseling and surveillance]76-65-4054OucidjglVlzxrbw disorders (20 sources)Generalized anxiety disorder; Translations: [Generalized anxiety disorder]Onset: 07-13-2021 Resolved: 71-98-3766RarwgmxHabued (15 sources)Uncomplicated moderate persistent asthma; Translations: [Moderate persistent asthma, uncomplicated]Onset: 07-13-2021 Resolved: 24-58-9154EkgagdrBaazcog obstructive pulmonary disease and bronchiectasis (7 sources)Chronic obstructive pulmonary disease, unspecified; Translations: [Chronic obstructive lung disease]Onset: 150558-03-7298IzfqpawQedkyohr atherosclerosis and other heart disease (20 sources)Coronary atherosclerosis; Translations: [Atherosclerotic heart disease of [place] coronary artery without angina pectoris]Onset: 01-24-2022 Resolved: 34-22-6533WxewwjsKutasyjk mellitus with complications (20 sources)Type 2 diabetes mellitus; Translations: [Type 2 diabetes mellitus with hyperglycemia]Onset: 07-13-2021 Resolved: 55-91-8043JxnpngcWibaoufz mellitus without complication (20 sources)Type 2 diabetes mellitus without complications; Translations: [Diabetes mellitus]Onset: 537526-43-6263CymzlsmVbjnviki mellitus without complication (8 sources)Impaired fasting glucose; Translations: [Hyperglycemia, unspecified] Onset: 07-12-2021 Resolved: 30-66-1389VnutgtkeDghgjqdwp of lipid metabolism (16 sources)Mixed hyperlipidemia; Translations: [Mixed hyperlipidemia]Onset: 01-24-2022 Resolved: 85-25-5893PjswhfjYucenozgw hypertension (20 sources)Essential hypertension; Translations: [Essential (primary) hypertension]Onset: 07-13-2021 Resolved: 42-62-7791FnvsurvShfhuvdavgrtp symptoms and ill-defined conditions (1 source)Frequency of micturitionEpisodicHeadache; including migraine (4 sources)Headache; including migraine; Translations: [HEADACHE UNSPECIFIED] Onset: 04-53-9693Rdifuniphqt (1 source)Unspecified hemorrhoidsEpisodicMalaise and fatigue (11 sources)Fatigue; Translations: [Chronic fatigue, unspecified]Chronic Menstrual disorders (12 sources)Menometrorrhagia; Translations: [Excessive and frequent menstruation with irregular cycle]Onset: 15-94-6401ApqmoqbBkfzmdgpciuky mental health disorders (5 sources)Chronic insomnia; Translations: [Psychophysiologic insomnia] 23-18-3846DxaxyuaRahk disorders (20 sources)Major depressive disorder; Translations: [Recurrent major depression]85-48-6459NisqisdVxeaox and vomiting (18 sources)Nausea and vomiting; Translations: [Nausea with vomiting, unspecified]Onset: 229322-85-2416LdktbthhOihnlijxcimpl gastroenteritis (1 source)Colitis; Translations: [Colitis]EpisodicNonspecific chest pain (19 sources)Chest pain, unspecified; Translations: [Chest pain]Onset: 01-19-2022 EpisodicNutritional deficiencies (2 sources)Vitamin D deficiency; Translations: [Vitamin D deficiency, unspecified]47-62-1579IcsdyicEypzn aftercare (1 source)Other mcc (current) drug therapy; Translations: [[facility] [employer]ATE CURRENT DRUG THERAPY]Onset: 00-67-7420JripxinoMqnfz circulatory disease (4 sources)Other specified symptoms and signs involving the circulatory and respiratory systems; Translations:[OTH SPEC SX SIGNS INVLV CIRC RS]Onset: 80-85-7424FgmtpvovNxxav diseases of bladder and urethra (6 sources)Overactive bladder; Translations: [Overactive bladder]ChronicOther diseases of bladder and urethra (1 source)Overactive bladderChronicOther female genital disorders (2 sources)Abnormal vaginal bleeding; Translations: [Abnormal uterine and vaginal bleeding, unspecified]84-13-4614FhmxnpaYkupn gastrointestinal disorders (4 sources)Constipation; Translations: [Constipation, unspecified]EpisodicOther gastrointestinal disorders (1 source)Constipation, unspecifiedEpisodicOther hematologic conditions (2 sources)Erythrocytosis; Translations: [Secondary polycythemia]03-31-2024 EpisodicOther hematologic conditions (2 sources)Secondary polycythemia; Translations: [Polycythemia vera]03-31-2024 EpisodicOther hereditary and degenerative nervous system conditions (3 sources)Tardive dyskinesia; Translations: [Drug induced subacute dyskinesia] 17-72-5297TibcobnfTtvml hereditary and degenerative nervous system conditions (2 sources)Drug induced subacute dyskinesia; Translations: [Subacute dyskinesia due to drugs]63-69-5506DdsgxjoxKfosc lower respiratory disease (2 sources)Cough; Translations: [Cough, unspecified type]05-15-8289SpyxnybjEkhxv nutritional; endocrine; and metabolic disorders (1 source)Obesity, unspecified; Translations: [OBESITY UNSPECIFIED]Onset: 14-28-1423XuxkqlyQlmri nutritional; endocrine; and metabolic disorders (3 sources)Body mass index (BMI) 45.0-49.9, adult; Translations: [BODY MASS INDEX BMI 45.0-49.9 ADULT]Onset: 53-28-9361AkxpvsyIvlup nutritional; endocrine; and metabolic disorders (7 sources)Body mass index 40+ - severely obese; Translations: [Morbid obesity] Onset: 792849-51-6039FifluwfLsccx nutritional; endocrine; and metabolic disorders (2 sources)Severe obesity; Translations: [Class 3 severe obesity due to excess calories with serious comorbidity and body mass index (BMI) of 45.0 to 49.9 in adult ([facility])]80-22-2870EkygrkbNqhlr screening for suspected conditions (not mental disorders or infectious disease) (4 sources)Cancer cervix screening status; Translations: [Encounter for screening for malignant neoplasm of cervix]19-17-4297FlxfjuumNvlxb skin disorders (1 source)Hidradenitis suppurativaEpisodicResidual codes; unclassified (3 sources)Sleep apnea; Translations: [Sleep apnea, unspecified]03-31-2024 ChronicResidual codes; unclassified (2 sources)Sleep apnea, unspecified; Translations: [Unspecified sleep apnea] 44-57-1166LokqaumNwyuohds codes; unclassified (13 sources)Tobacco user; Translations: [Tobacco use]49-78-3550FmjwbbsbMtofhwpi codes; unclassified (5 sources)Tobacco use; Translations: [Tobacco use disorder]70-87-0503Wepxbkih Residual codes; unclassified (3 sources)Harmful pattern of use of nicotine; Translations: [Tobacco use] 12-14-5889XdfizfktWhtb and subcutaneous tissue infections (20 sources)Cellulitis and abscess of chest wall ; Translations: [Abscess or cellulitis of chest wall]91-21-2799SikyoxmkAdmkbmvbo-related disorders (13 sources)Opioid withdrawal; Translations: [Opioid abuse, uncomplicated]Onset: 261373-59-0215NwejreoYdirynz on above:1 PPD;Substance-related disorders (15 sources)Opioid abuse; Translations: [Opioid use, unspecified, uncomplicated] 32-81-0329Njpkmmvl Past or Other Problems Problem ClassificationProblemDateDocumented DateEpisodic/ChronicAbdominal hernia (7 sources)Umbilical hernia; Translations: [Umbilical hernia without obstruction or gangrene]Onset: 916235-08-6034RxyjunypGkaze myocardial infarction (20 sources)Non-ST elevation (NSTEMI) myocardial infarction; Translations: [Myocardial infarction]Onset: 01-23-2022 Resolved: 038027-97-4196HvclyboRmctq aftercare (2 sources)oysterman (current) use of insulin; Translations: [oysterman (current) use of insulin (Multi)]Onset: 31-42-2573JanvkyzoEbrjr lower respiratory disease (4 sources)Pleurodynia; Translations: [PLEURODYNIA]Onset: 66-12-3873Cmnicfwb Other lower respiratory disease (1 source)Dyspnea, unspecified; Translations: [Dyspnea, unspecified]Onset: 22-60-4478TilehyftDqzcwtji codes; unclassified (3 sources)Localized edema; Translations: [Localized edema]Onset: 10-06-2024 02-09-1884FodjqcrjBydrtanp codes; unclassified (1 source)Localized edema; Translations: [Localized edema]Onset: 10-06-2024 EpisodicSuicide and intentional self-inflicted injury (1 source)Suicidal thoughts; Translations: [Suicidal ideation]Episodic Results Test NameValueInterpretationReference RangeFacilityNo Panel Informationon 90-12-3925Hfqupbzvimgnji and review of laboratory resultsNormalNOMS Healthcare RESULT 1NegativeNegatvieNOWI HealthcareRESULT 2NegativeNegatvieNOWI Healthcare NOMS HealthcareGlucose (Bld) [Mass/Vol]Ordered By: Adilene Greene on 07-14-2024 Glucose Blood, AUP308 mg/dLNOWI HealthcareLaboratory - Hematology and Cell countson 89-79-0867BxV3e (Bld) [Mass fraction]11.3 %NOMS HealthcareNo Panel InformationOrdered By: Adilene Greene on 68-50-0063LMCZ HealthcareB-Type Natriuretic Peptideon 19-52-9614Xtovrkwoqkj peptide B (Bld) [Mass/Vol]42.0 pg/mL [place]5-100[facility] Physician GroupComment on above:Result Comment: PERFORMED BY: [address] [address] PATHOLOGIST [employer] REFINERY ROSHNI RAINES M.D.Performed By: #### PT, CBC, BMP, HS TROP, PTT, BNP ####[place] [id number] USABasic Metabolic Panelon 36-71-1732Tfogp gap [Moles/Vol]10.4 mmol/LNormal6.0-15.0The [facility] Physician GroupComment on above:Performed By: #### PT, CBC, BMP, HS TROP, PTT, BNP ####[place] [address] USACalcium [Mass/Vol]8.9 mg/dLNormal8.6-10.3The [facility] Comment on above:Performed By: #### PT, CBC, BMP, HS TROP, PTT, BNP ####[place] [id number] [place] Chloride [Moles/Vol]102 mmol/BMxlarw21-496Ocw [facility] Physician GroupComment on above:Performed By: #### PT, CBC, BMP, HS TROP, PTT, BNP ####[place] [id number] USACO2 [Moles/Vol]27.6 mmol/QNdpuvg82.0-31.0The [facility] Physician GroupComment on above:Performed By: #### PT, CBC, BMP, HS TROP, PTT, BNP ####[place] [id number] USACreatinine [Mass/Vol]0.64 mg/dLNormal0.60-1.20 The [facility] Physician GroupComment on above:Performed By: #### PT, CBC, BMP, HS TROP, PTT, BNP ####[place] [address] USACreatinine Clr Calc Uszvzeqg431.54NormalThe [facility] Physician GroupComment on above:Result Comment: PERFORMED BY: [facility] [address] [place] [id number] PATHOLOGIST [employer] REFIN[employer] ROSHNI RAINES M.D.Performed By: #### PT, CBC, BMP, HS TROP, PTT, BNP ####[place] [address] [place] [id number] [place] GFR/1.73 sq M.predicted MDRD (S/P/Bld) [Vol rate/Area]mL/min/{1.73_m2}NormalThe [facility] Physician GroupComment on above:Performed By: #### PT, CBC, BMP, HS TROP, PTT, BNP ####[place] [address] [place] [address] USAGlucose [Mass/Vol]252 mg/uXSbqr75-231Kgz [facility] Comment on above:Result Comment: Random Glucose Reference Range is dependent on time and content of last meal. Glucose of more than 200 mg/dL in a nonstressed, ambulatory subject supports the diagnosis of Diabetes Mellitus. ADA recommended reference rangePerformed By: #### PT, CBC, BMP, HS TROP, PTT, BNP ####[place] [address] [place] [id number] [place] Potassium [Moles/Vol]4.0 mmol/LNormal3.5-5.1The [facility] Physician GroupComment on above:Performed By: #### PT, CBC, BMP, HS TROP, PTT, BNP ####[place] [address] [place] [id number] USASodium [Moles/Vol]136 mmol/CIjynef616-297Rmv [facility] Physician GroupComment on above:Performed By: #### PT, CBC, BMP, HS TROP, PTT, BNP ####[place] [address] [place] [id number] USAUrea nitrogen [Mass/Vol]11 mg/dLNormal7-25The [facility] Physician GroupComment on above:Performed By: #### PT, CBC, BMP, HS TROP, PTT, BNP ####[place] [address] [place] [id number] USABasophils Auto (Bld) [#/Vol]Ordered By: Earnestine Saffle on 06-04-2024 Basophils (Bld) [#/Vol]Automated basophil count0.0-0.2FFairfield Medical CenterBasophils/100 WBC Auto (Bld)Ordered By: Earnestine Alonso on 06-04-2024 Basophils/100 WBC (Bld)Automated basophil %.[facility] COVID Cepheid NegativeOrdered By: Earnestine Alonso on 89-07-8997AOHC-CoV-2 (COVID-19) Ab IA QlCOVID CepheidNegativeAdams County HospitalComment on above:This is a duplicate Cepheid Xpert Xpress CoV-2/Flu/RSV Plus RNA by RT- PCR result to be used for statistical tracking purpose only.COVID-19 / Flu A/B / RSV PCRon 11-21-5307RJAJ-CoV-2 (COVID-19) RNA HARJINDER+probe Ql (Unsp spec)COVID-19 Cepheid Result Negative for SARS-CoV-2 RNA by RT-PCR Flu A Cepheid Result Negative for Flu A RNA by RT-PCR Flu B Cepheid Result Negative for Flu B RNA by RT-PCR RSV Cepheid Result Negative for RSV RNA by RT-PCR COVID19 Blank Space Reference: Negative COVID19 Blank Space Cepheid Disclaimer The Cepheid Xpert Xpress CoV-2/Flu/RSV [...] or Cepheid Disclaimer revoked sooner. PERFORMED BY: [facility] [address] [place] [address] PATHOLOGIST [employer] REFINERY ROSHNI RAINES M.D.NormalThe [facility] Physician GroupComment on above: Performed By: #### COVID19 FLU RSV, CEPHEID NEG ####[facility] [place] [address] USACalcium [Mass/volume] in Serum or PlasmaOrdered By: Earnestine Alonso on 27-28-2191Ixnqgft [Mass/Vol]Calcium [Mass/volume] in Serum or Plasma8.6-10.3FFairfield Medical CenterCarbon dioxide, total [Moles/volume] in Serum or PlasmaOrdered By: Earnestine Alonso on 95-03-2574VO5 [Moles/Vol]Carbon dioxide, total [Moles/volume] in Serum or Plasma 21.0-31.0[facility] HospitalCepheid COVID PCR Negativeon 15-78-8502HVRY-CoV-2 (COVID-19) RNA HARJINDER+probe Ql (Unsp spec)NegativeNormal NegativeThe [facility] Physician GroupComment on above:Result Comment: This is a duplicate Cepheid Xpert Xpress CoV-2/Flu/RSV Plus RNA by RT-PCR result to be used for statistical tracking purpose only. PERFORMED BY: [facility] [address] [place] [address] PATHOLOGIST FIRE MARSHAL REFINERY MOHAMED M EL-FAKHARANY M.D.Performed By: #### COVID19 FLU RSV, CEPHEID NEG ####[place] [id number] [place] Chloride [Moles/volume] in Serum or PlasmaOrdered By: Earnestine Alonso on 07-24-9606Xqjwojfg [Moles/Vol]Chloride [Moles/volume] in Serum or Noqukf46-901 [facility] HospitalComplete Blood Count Auto Diffon 06-04-2024 Basophils (Bld) [#/Vol]0.1 10*3/uLNormal0.0-0.2[facility] Comment on above:Result Comment: PERFORMED BY: [facility] [address] [place] [id number] PATHOLOGIST FIRE MARSHAL REFINERY ROSHNI RAINES M.D.Performed By: #### PT, CBC, BMP, HS TROP, PTT, BNP ####[place] [address] [place] Basophils/100 WBC (Bld)1.3 %Normal.[facility] Physician GroupComment on above:Performed By: #### PT, CBC, BMP, HS TROP, PTT, BNP ####[place] [address] USAEosinophils (Bld) [#/Vol]0.2 10*3/uLNormal0.0-0.45The [facility] Physician GroupComment on above:Performed By: #### PT, CBC, BMP, HS TROP, PTT, BNP ####[place] [address] USAEosinophils/100 WBC (Bld)2.1 %Normal.The [facility] Physician GroupComment on above:Performed By: #### PT, CBC, BMP, HS TROP, PTT, BNP ####[place] [address] USAErythrocyte distribution width (RBC) [Ratio]13.5 %Lmcrkr63.9-15.3The [facility] Physician GroupComment on above:Performed By: #### PT, CBC, BMP, HS TROP, PTT, BNP ####[address]Hematocrit (Bld) [Volume fraction]46.0 %Nktzzz39.0-46.4The [facility] Physician GroupComment on above:Performed By: #### PT, CBC, BMP, HS TROP, PTT, BNP ####[address] Hemoglobin (Bld) [Mass/Vol]16.1 g/hCEwxp30.8-15.4The [facility] Comment on above:Performed By: #### PT, CBC, BMP, HS TROP, PTT, BNP ####[address] Lymphocytes (Bld) [#/Vol]2.2 10*3/uLNormal1.00-4.8The [facility] Comment on above:Performed By: #### PT, CBC, BMP, HS TROP, PTT, BNP ####[address] Lymphocytes/100 WBC (Bld)21.8 %Normal.The [facility] Physician GroupComment on above:Performed By: #### PT, CBC, BMP, HS TROP, PTT, BNP ####[address]H (RBC) [Entitic mass]31.1 qsOchgjg23.7-34.3The [facility] Physician GroupComment on above:Performed By: #### PT, CBC, BMP, HS TROP, PTT, BNP ####[address]V (RBC) [Entitic vol]89.0 hCHyjzbo05-907Wqy [facility] Physician GroupComment on above:Performed By: #### PT, CBC, BMP, HS TROP, PTT, BNP ####[place] [address] USAMean Corpuscular HGB Conc35.0 g/sFHkqbeu81.0-35.0The [facility] Physician GroupComment on above:Performed By: #### PT, CBC, BMP, HS TROP, PTT, BNP ####[place] [address] [place] Monocytes (Bld) [#/Vol]0.6 10*3/uLNormal0.0-0.8[facility] Comment on above:Performed By: #### PT, CBC, BMP, HS TROP, PTT, BNP ####[place] [address] [place] Monocytes/100 WBC (Bld)17.45 %Normal0.00-20.00[facility] Comment on above:Performed By: #### PT, CBC, BMP, HS TROP, PTT, BNP ####[place] [address] [place] Monocytes/100 WBC (Bld)5.7 %Normal.The [facility] Physician GroupComment on above:Performed By: #### PT, CBC, BMP, HS TROP, PTT, BNP ####[place] [address] USANeutrophils (Bld) [#/Vol]6.9 10*3/uLNormal1.8-7.7The [facility] Physician GroupComment on above:Performed By: #### PT, CBC, BMP, HS TROP, PTT, BNP ####[place] [address] USANeutrophils/100 WBC (Bld)69.1 %Normal.The [facility] Physician GroupComment on above:Performed By: #### PT, CBC, BMP, HS TROP, PTT, BNP ####[place] [address] USANRBC%0.1 /100{WBC}Normal0-0.5The [facility] Physician GroupComment on above:Performed By: #### PT, CBC, BMP, HS TROP, PTT, BNP ####[place] [address] USAPlatelet mean volume (Bld) [Entitic vol]7.2 fLNormal6.3-10.7The [facility] Physician GroupComment on above: Performed By: #### PT, CBC, BMP, HS TROP, PTT, BNP ####[place] [address] [place] [address] USAPlatelets (Bld) [#/Vol]296 10*3/oLSvepyn646-631Rmg [facility] Physician GroupComment on above:Performed By: #### PT, CBC, BMP, HS TROP, PTT, BNP ####[place] [address] USARBC (Bld) [#/Vol]5.17 10*6/uLHigh3.60-5.00The [facility] Physician GroupComment on above:Performed By: #### PT, CBC, BMP, HS TROP, PTT, BNP ####[place] [address] USAWBC (Bld) [#/Vol]9.9 10*3/uLNormal3.8-11.6[facility] Comment on above:Performed By: #### PT, CBC, BMP, HS TROP, PTT, BNP ####[place] [address] [place] Creatinine [Mass/volume] in Serum or PlasmaOrdered By: Earnestine Alonso on 39-07-3977Vpsrdycsck [Mass/Vol]Creatinine [Mass/volume] in Serum or Plasma 0.60-1.20[facility] HospitalECG 12 lead ECGon 07-27-7751WPW 12 lead ECGHENRY COUNTY [facility] Main [place] [place] [address] Electrocardiograph Report Signed Patient: Natividad Bonner MR#: [id number] : 1985 Acct:[id number] Age/Sex: 38 / F ADM Date: 06/04/24 Loc: ER Room: Type: [facility] ER Attending Dr: Ordering Provider: Earnestine Alonso [...] sinus rhythm Confirmed by Chandan James DO ([id number]) on 06/05/2024 1:03:54 AM Referred By: Electronically Signed By: Chandan James DO Transcribed By: MUS Signed By Chandan James DO [address] GroupECG 12 lead ECGHENRY COUNTY [place] [address] Electrocardiograph Report Signed Patient: Natividad Bonner MR#: [id number] : 1985 Acct:[id number] Age/Sex: 38 / F ADM Date: 06/04/24 Loc: ER Room: Type: [facility] ER Attending Dr: Ordering Provider: Earnestine Alonso [...] sinus rhythm Confirmed by Chandan James DO ([id number]) on 06/05/2024 1:04:30 AM Referred By: Electronically Signed By: Chandan James DO Transcribed By: MUS Signed By Chandan James DO 0[address] Physician GroupEosinophils Auto (Bld) [#/Vol] Ordered By: Earnestine Alonso on 34-42-6162Sdfxbaagzbu (Bld) [#/Vol]Automated eosinophil count0.0-0.45[facility] HospitalEosinophils/100 WBC Auto (Bld)Ordered By: Earnestine Alonso on 76-02-0216Vsszxriavrg/100 WBC (Bld) Automated eosinophil %.[facility] HospitalErythrocyte distribution width Auto (RBC) [Ratio]Ordered By: Earnestine Alonso on 62-22-2185Tviiazplwlx distribution width (RBC) [Ratio]Erythrocyte distribution width [Ratio] by Automated count11.9-15.3FFairfield Medical CenterGlucose [Mass/volume] in Serum or PlasmaOrdered By: Earnestine Alonso on 95-53-4627Mispjqo [Mass/Vol] Glucose [Mass/volume] in Serum or ImajjrBqcc25-935BzubfxtnrAdams County HospitalComment on above:ADA recommended reference rangeRandom Glucose Reference Range is dependent on time and content of last meal. Glucose of more than 200 mg/dL in a nonstressed, ambulatory subject supports the diagnosisof Diabetes Mellitus.Hematocrit Auto (Bld) [Volume fraction]Ordered By: Earnestine Alonso on 57-09-7313Urzjsyvnyi (Bld) [Volume fraction]Hematocrit [Volume Fraction] of Blood by Automated count34.0-46.4FFairfield Medical CenterHemoglobin [Mass/volume] in BloodOrdered By: Earnestine Alonso on 32-15-3604Hjwqbpxkpc (Bld) [Mass/Vol]Hemoglobin [Mass/volume] in TjntaLumo41.8-15.4FFairfield Medical CenterINR in Platelet poor plasma by Coagulation assayOrdered By: Earnestine Alonso on 60-93-8883TWD Coag (PPP) [Relative time]INR in Platelet poor plasma by Coagulation assayAdams County HospitalComment on above:INR Therapeutic Range A) Pre- and Peroperative OAT started two weeks before surgery. NOT HIP SURGERY: 1.5 - 2.5 HIP SURGERY: 2 - 3B) Primary and secondary prevention of venous THROMBOSIS: 2 - 3C) Active venous thrombosis, pulmonary embolismand prevention of recurrent venous thrombosis: 2 - 3D) Prevention of arterial thromboembolismincluding patients with mechanical heart valves: 3 - 4.5 Leukocytes [#/volume] corrected for nucleated erythrocytes in Blood by Automated counOrdered By: Earnestine Alonso on 77-73-4070TKD corrected for nucl RBC Auto (Bld) [#/Vol]Leukocytes [#/volume] corrected for nucleated erythrocytes in Blood by Automated coun3.8-11.6FFairfield Medical CenterLymphocytes Auto (Bld) [#/Vol]Ordered By: Earnestine Alonso on 82-80-2755Mzisgvoalyl (Bld) [#/Vol] Lymphocytes [#/volume] in Blood by Automated count1.00-4.8Ad[facility] County HospitalLymphocytes/100 WBC Auto (Bld)Ordered By: Earnestine Alonso on 70-21-5745Uexonxppgrb/100 WBC (Bld)Lymphocytes/100 leukocytes in Blood by Automated count.[facility] County HospitalMCH Auto (RBC) [Entitic mass] Ordered By: Earnestine Alonso on 50-61-0870LOY (RBC) [Entitic mass]MCH [Entitic mass] by Automated count24.7-34.3FFairfield Medical CenterMCHC Auto (RBC) [Mass/Vol]Ordered By: Earnestine Alonso on 36-80-6105TVDH (RBC) [Mass/Vol] MCHC [Mass/volume] by Automated count32.0-35.0[facility] MCV Auto (RBC) [Entitic vol]Ordered By: Earnestine Alonso on 63-74-1040GVS (RBC) [Entitic vol]MCV [Entitic volume] by Automated qmfuc20-024AvbdbqwjhAdams County HospitalMonocyte distribution width [Entitic volume] in Blood by Automated Ordered By: Earnestine Alonso on 94-64-6984Photpoxh distribution width Auto (Bld) [Entitic vol]Monocyte distribution width [Entitic volume] in Blood by Automated 0.00-20.00[facility] HospitalMonocytes Auto (Bld) [#/Vol]Ordered By: Earnestine Alonso on 27-65-6869Sbpvrxejs (Bld) [#/Vol]Automated blood monocyte count0.0-0.8[facility] HospitalMonocytes/100 WBC Auto (Bld) Ordered By: Earnestine Alonso on 58-40-1726Skhjoudxe/100 WBC (Bld)Automated monocyte %.[facility] County HospitalNatriuretic peptide B [Mass/Vol] Ordered By: Earnestine Alonso on 00-83-1415Vitcnnlkusy peptide B (Bld) [Mass/Vol] BNP ser/plas5-100Ad[facility] HospitalNeutrophils Auto (Bld) [#/Vol] Ordered By: Earnestine Alonso on 86-64-5413Awqdesvmihl (Bld) [#/Vol]Neutrophils [#/volume] in Blood by Automated count1.8-7.7FFairfield Medical Center Neutrophils/100 WBC Auto (Bld)Ordered By: Earnestine Alonso on 06-04-2024 Neutrophils/100 WBC (Bld)Automated neutrophil %.[facility] HospitalNo Panel InformationOrdered By: Earnestine Alonso on 09-65-5532Qfhyzmctu GFR (CKD-EPI)> 60.0 mL/MinAdams County HospitalPharmacy Creatinine Clearance (Kfnd358.54Ad[facility] County HospitalNucleated erythrocytes [Presence] in Blood by Automated countOrdered By: Earnestine Alonso on 06-04-2024 Nucleated RBC Auto Ql (Bld)Nucleated erythrocytes [Presence] in Blood by Automated count0-0.5FFairfield Medical CenterPartial Thromboplastin Time on 59-91-5583cIUB Coag (Bld) [Time]29.7 gHmmxnj66.1-36.5The [facility] Physician GroupComment on above:Result Comment: A hematocrit value greater than 55% may lead to inaccurate results in coagulation testing. Patients having hematocrit values >55% require a special collection tube for coagulation studies. Please contact the laboratory at [phone] for redraw instructions. PERFORMED BY: [facility] [address] [place] [id number] PATHOLOGIST FIRE MARSHAL REFINERY ROSHNI RAINES M.D.Performed By: #### PT, CBC, BMP, HS TROP, PTT, BNP ####[facility] [address] [place] [id number] [facility] Platelet mean volume Auto (Bld) [Entitic vol]Ordered By: Earnestine Alonso on 39-73-5337Dilxfyjc mean volume (Bld) [Entitic vol]Platelet mean volume [Entitic volume] in Blood by Automated count6.3-10.7FFairfield Medical Center Platelets Auto (Bld) [#/Vol]Ordered By: Earnestine Alonso on 66-74-4589Yevmvqexe (Bld) [#/Vol]Platelets [#/volume] in Blood by Automated sttnu162-228XissyewmxAdams County HospitalPotassium [Moles/volume] in Serum or PlasmaOrdered By: Earnestine Alonso on 23-46-1690Crgxgbvlp [Moles/Vol]Potassium [Moles/volume] in Serum or Plasma3.5-5.1FFairfield Medical CenterProthrombin Time INRon 74-76-7220HCY Coag (PPP) [Relative time]0.9 {INR}NormalThe [facility] Physician [facility] HospitalComment on above:Result Comment: INR Therapeutic Range A) Pre- and [...] patients with mechanical heart valves: 3 - 4.5Performed By: #### PT, CBC, BMP, HS TROP, PTT, BNP ####[facility] [place] [address] USAPT Coag (PPP) [Time]10.6 sNormal9.0-12.9The [facility] Physician [facility] HospitalComment on above:Result Comment: A hematocrit value greater than 55% may lead to inaccurate results in coagulation testing. Patients having hematocrit values >55% require a special collection tube for coagulation studies. Please contact the laboratory at [phone] for redraw instructions.Performed By: #### PT, CBC, BMP, HS TROP, PTT, BNP ####[facility] [address] [place] [address] USAProthrombin time (PT) Ordered By: Earnestine Alonso on 43-99-1883ZQ Coag (PPP) [Time]Prothrombin time (PT)9.0-12.9Ad[facility] County HospitalComment on above:A hematocrit value greater than 55% may lead to inaccurate results in coagulation testing. Patientshaving hematocrit values >55% require a special collection tube for coagulation studies. Please contact the laboratory at [phone] for redraw instructions.RBC Auto (Bld) [#/Vol]Ordered By: Earnestine Alonso on 70-38-4043UXI (Bld) [#/Vol]Erythrocytes [#/volume] in Blood by Automated countHigh3.60-5.00 [facility] HospitalRespiratory specimen influenza A virus, influenza B virus, respiratory syncytical virOrdered By: Earnestine Alonso on 85-38-3074QKXZ-CoV-2 (COVID-19) RNA HARJINDER+probe Ql (Unsp spec)Respiratory specimen influenza A virus, influenza B virus, respiratory syncytical virFirelands Regional Medical Center South Campuserum or plasma anion gap determinationOrdered By: Earnestine Alonso on 95-51-6738Bkqve gap [Moles/Vol]Serum or plasma anion gap determination6.0-15.0Firelands [facility] Medical Center South Campusodium [Moles/volume] in Serum or PlasmaOrdered By: Earnestine Alonso on 86-56-1206Hfhbnf [Moles/Vol]Sodium [Moles/volume] in Serum or Osmajh225-994EhxtgrtenAdams County Hospital Troponin I High Sensitivityon 50-40-5243Elpluvip I High Sensitivity2.8 pg/mL Normal0.0-15.0The [facility] Physician GroupComment on above:Result Comment: PERFORMED BY: [facility] [address] [place] [address] PATHOLOGIST FIRE MARSHAL REFINERY ROSHNI RAINES M.D.Performed By: #### PT, CBC, BMP, HS TROP, PTT, BNP ####[facility] Troponin I.cardiac [Mass/volume] in Serum or Plasma by Detection limit <= 0.01 ng/Ordered By: Earnestine Alonso on 16-78-3412Scksjdrq I.cardiac DL <= 0.01 ng/mL [Mass/Vol]Troponin I.cardiac [Mass/volume] in Serum or Plasma by Detection limit <= 0.01 ng/0.0-15.0Ad[facility] County HospitalUrea nitrogen [Mass/volume] in Serum or PlasmaOrdered By: Earnestine Alonso on 41-39-5555Orev nitrogen [Mass/Vol]Urea nitrogen [Mass/volume] in Serum or Plasma7-25Ad[facility] County HospitalWBC Auto (Bld) [#/Vol]Ordered By: Earnestine Alonso on 54-27-4312RYY (Bld) [#/Vol]Leukocytes [#/volume] in Blood by Automated count3.8-11.6FFairfield Medical CenterX-ray reportOrdered By: Lupe Landry on 96-47-7527Fhonj reportFIRSHELTERING ARMS HOSPITAL Main [address] [address] XRay Report Signed Patient: Natividad Bonner MR#: [id number] : 1985 Acct:[id number] Age/Sex: 38 / F ADM Date: 5 [...] Lupe Landry M.D.06/04/2024 5:23 PM Dictation Location: [place] [address] Transcribed By: [facility] 06/04/241722 Dictated By: Lupe Landry II, MD 06/04/241720 Signed By: 06/04/24 172 [facility] Work Phone: xr chest 2V*on 64-84-7482LT chest 2V*[facility] Main [address] [address] XRay Report Signed Patient: Natividad Bonner MR#: [id number] : 1985 Acct:[id number] Age/Sex: 38 / F ADM Date: 06/04/24 [...] Lupe Landry M.D.06/04/2024 5:23 PM Dictation Location: [place] [address] Transcribed By: ALISHA 06/04/24 172 Dictated By: Lupe Landry II, MD 06/04/241720 Signed By: 06/04/24 172NoCarolinas ContinueCARE [facility] at [facility] Physician GroupaPTT in Platelet poor plasma by Coagulation assayOrdered By: Earnestine Alonso on 58-89-9461tIIR Coag (PPP) [Time] Activated partial thromboplastin time (aPTT) in platelet poor plasma by coagulation a25.1-36.5FFairfield Medical CenterComment on above:A hematocrit value greater than 55% may lead to inaccurate results in coagulation testing. Patientshaving hematocrit values >55% require a special collection tube for coagulation studies. Please contact the laboratory at [phone] for redraw instructions.Alanine aminotransferase [Enzymatic activity/volume] in Serum or PlasmaOrdered By: Molly Elaine on 07-69-3313IXU [Catalytic activity/Vol]17 U/LNormal[address] [place], [place] [address]Comment on above: Order Comment: FASTING. JKWPerformed By: #### CBC, CMP #### [facility] [address] [place] [address] [place] #### HIV SCREEN, HBCAB, IGM, HCVCASCADE #### [facility] ,ALT [Catalytic activity/Vol]Alanine aminotransferase [Enzymatic activity/volume] in Serum or PlasmaAdams County HospitalAlbumin [Mass/volume] in Serum or Plasma by Bromocresol green (BCG) dye binding metho Ordered By: Molly Chele on 36-70-3920Drqzbde BCG dye [Mass/Vol]4.1 g/dL3.5-5.7 [facility] HospitalAlbumin BCG dye [Mass/Vol]Albumin [Mass/volume] in Serum or Plasma by Bromocresol green (BCG) dye binding metho3.5-5.7FFairfield Medical CenterAlkaline phosphatase [Enzymatic activity/volume] in Serum or PlasmaOrdered By: Molly Chele on 64-51-5740REA [Catalytic activity/Vol]80 U/PXytghd05-617Mzonybz[address] [place], [place] [address]Comment on above:Order Comment: FASTING. JKWResult Comment: PERFORMED BY: [place] [id number] PATHOLOGIST FIRE MARSHAL REFINERY EFRA RING M.D.Performed By: #### CBC, CMP #### [address] #### HIV SCREEN, HBCAB, IGM, HCVCASCADE #### [facility] ,ALP [Catalytic activity/Vol]Alkaline phosphatase [Enzymatic activity/volume] in Serum or Igkywr36-846Ejcfhwrlh82 [address] StreetAspartate aminotransferase [Enzymatic activity/volume] in Serum or PlasmaOrdered By: Mollymaria g Elaine on 88-11-7741FUM [Catalytic activity/Vol]14 U/QPcyvkn66-35Scwziluss46 Johnston StreetComment on above:Order Comment: FASTING. JKWPerformed By: #### CBC, CMP #### [facility] [address] [place] [address] [place] #### HIV SCREEN, HBCAB, IGM, HCVCASCADE #### [facility] ,AST [Catalytic activity/Vol]Aspartate aminotransferase [Enzymatic activity/volume] in Serum or Yxsvza75-18Nafvbjhyo[address] Automated basophil %Ordered By: Molly Chele on 64-41-9448Wlqumoeqo/100 WBC (Bld)1.2 %Normal.[facility] County HospitalComment on above:Order Comment: FASTING. JKWPerformed By: #### CBC, CMP #### [address] #### HIV SCREEN, HBCAB, IGM, HCVCASCADE #### [facility] ,Automated basophil countOrdered By: Molly Maerena on 51-93-0480Qzennhpen (Bld) [#/Vol]0.1 10*3/uLNormal0.0-0.2FFairfield Medical CenterComment on above:Order Comment: FASTING. JKWResult Comment: PERFORMED BY: [place] [id number] PATHOLOGIST FIRE MARSHAL REFINERY EFRA RING M.D.Performed By: #### CBC, CMP #### [address] #### HIV SCREEN, HBCAB, IGM, HCVCASCADE #### [facility] ,Automated blood monocyte countOrdered By: Molly Maerena on 80-53-8073Xylqoboel (Bld) [#/Vol]0.5 10*3/uLNormal0.0-0.8Ad[facility] County HospitalComment on above:Order Comment: FASTING. JKWPerformed By: #### CBC, CMP #### [address] #### HIV SCREEN, HBCAB, IGM, HCVCASCADE #### [facility] ,Automated eosinophil %Ordered By: Molly Maerena on 06-51-6359Ivedyyskwot/100 WBC (Bld)2.2 %Normal.[facility] HospitalComment on above:Order Comment: FASTING. JKWPerformed By: #### CBC, CMP #### [place] [address] [place] #### HIV SCREEN, HBCAB, IGM, HCVCASCADE #### [facility] ,Automated eosinophil countOrdered By: Molly Maerena on 72-10-0341Iuxeqbfmxge (Bld) [#/Vol]0.2 10*3/uLNormal0.0-0.45Ad[facility] HospitalComment on above:Order Comment: FASTING. JKWPerformed By: #### CBC, CMP #### [place] [address] [place] #### HIV SCREEN, HBCAB, IGM, HCVCASCADE #### [facility] ,Automated monocyte %Ordered By: Molly Elaine on 70-51-8896Rhxgylpnh/100 WBC (Bld)5.2 %Normal.[facility] County HospitalComment on above:Order Comment: FASTING. JKWPerformed By: #### CBC, CMP #### [address] #### HIV SCREEN, HBCAB, IGM, HCVCASCADE #### [facility] ,Automated neutrophil %Ordered By: Molly Elaine on 71-84-8993Yrartqxnucz/100 WBC (Bld)62.4 %Normal.[facility] HospitalComment on above:Order Comment: FASTING. JKWPerformed By: #### CBC, CMP #### [place] [address] [place] #### HIV SCREEN, HBCAB, IGM, HCVCASCADE #### [facility] ,Basophils Auto (Bld) [#/Vol]Ordered By: Molly Elaine on 11-16-0039Xbqxvftkr (Bld) [#/Vol]Automated basophil count0.0-0.2FFairfield Medical Center Basophils/100 WBC Auto (Bld)Ordered By: Molly Elaine on 31-50-2362Rstzxghmi/100 WBC (Bld)Automated basophil %.[facility] County HospitalBilirubin.total [Mass/volume] in Serum or PlasmaOrdered By: Molly Elaine on 71-11-2779Jfwwcjhpb [Mass/Vol]0.3 mg/dLNormal0.3-1.0Ad[facility] HospitalComment on above:Order Comment: FASTING. JKWPerformed By: #### CBC, CMP #### [place] [address] [place] #### HIV SCREEN, HBCAB, IGM, HCVCASCADE #### [facility] ,Bilirubin [Mass/Vol]Bilirubin.total [Mass/volume] in Serum or Plasma0.3-1.0 [facility] HospitalCalcium [Mass/volume] in Serum or PlasmaOrdered By: Molly Chele on 41-68-7172Vcjohmi [Mass/Vol]8.8 mg/dLNormal8.6-10.3 [facility] HospitalComment on above:Order Comment: FASTING. JKW Performed By: #### CBC, CMP #### [place] [address] [place] #### HIV SCREEN, HBCAB, IGM, HCVCASCADE #### [facility] ,Calcium [Mass/Vol]Calcium [Mass/volume] in Serum or Plasma8.6-10.3FFairfield Medical CenterCarbon dioxide, total [Moles/volume] in Serum or Plasma Ordered By: Mollymaria g Elaine on 89-37-2383MD3 [Moles/Vol]24.4 mmol/HOpgfip35.0-31.0 [facility] HospitalComment on above:Order Comment: FASTING. JKW Performed By: #### CBC, CMP #### [place] [address] [place] #### HIV SCREEN, HBCAB, IGM, HCVCASCADE #### [facility] ,CO2 [Moles/Vol]Carbon dioxide, total [Moles/volume] in Serum or Xmezjd89.0-31.0 [facility] HospitalChloride [Moles/volume] in Serum or Plasma Ordered By: Molly Maerena on 92-17-5376Xbjqjoar [Moles/Vol]103 mmol/LNormal 98-107Ad[facility] HospitalComment on above:Order Comment: FASTING. JKWPerformed By: #### CBC, CMP #### [place] [address] [place] #### HIV SCREEN, HBCAB, IGM, HCVCASCADE #### [facility] ,Chloride [Moles/Vol]Chloride [Moles/volume] in Serum or Erjivg69-557GsowjkdocAdams County HospitalComplete Blood Count Auto Diffon 81-43-7746Dvat Corpuscular HGB Conc34.6 g/bTUmullq40.0-35.0The [facility] Physician GroupComment on above:Order Comment: FASTING. JKWPerformed By: #### CBC, CMP #### [address] #### HIV SCREEN, HBCAB, IGM, HCVCASCADE #### [facility] ,NRBC%0.1 /100{WBC}Normal0-0.5The [facility] Physician GroupComment on above: Order Comment: FASTING. JKWPerformed By: #### CBC, CMP #### [address] #### HIV SCREEN, HBCAB, IGM, HCVCASCADE #### [facility] ,Comprehensive Metabolic Panelon 26-72-3040Ngsejul [Mass/Vol]4.1 g/dLNormal 3.5-5.7The [facility] Physician GroupComment on above:Order Comment: FASTING. JKW Performed By: #### CBC, CMP #### [place] [address] [place] #### HIV SCREEN, HBCAB, IGM, HCVCASCADE #### [facility] ,GFR/1.73 sq M.predicted MDRD (S/P/Bld) [Vol rate/Area]mL/min/{1.73_m2}NormalThe [facility] Physician GroupComment on above:Order Comment: FASTING. JKWPerformed By: #### CBC, CMP #### [place] [address] [place] #### HIV SCREEN, HBCAB, IGM, HCVCASCADE #### [facility] ,Creatinine [Mass/volume] in Serum or PlasmaOrdered By: Molly Elaine on 63-80-7804Tlhwofqpyd [Mass/Vol]0.53 mg/dLLow0.60-1.20[facility] HospitalComment on above:Order Comment: FASTING. JKWPerformed By: #### CBC, CMP #### [facility] [address] #### HIV SCREEN, HBCAB, IGM, HCVCASCADE #### [facility] ,Creatinine [Mass/Vol]Creatinine [Mass/volume] in Serum or PlasmaLow0.60-1.20 [facility] HospitalEosinophils Auto (Bld) [#/Vol]Ordered By: Molly Elaine on 67-44-9775Ntbedwdduty (Bld) [#/Vol]Automated eosinophil count 0.0-0.45[facility] HospitalEosinophils/100 WBC Auto (Bld)Ordered By: Molly Elaine on 50-21-1564Zietxyqrtim/100 WBC (Bld)Automated eosinophil %. [facility] County HospitalErythrocyte distribution width Auto (RBC) [Ratio]Ordered By: Molly Elaine on 67-40-5970Cnxfsomtidw distribution width (RBC) [Ratio]Erythrocyte distribution width [Ratio] by Automated count11.9-15.3 [facility] HospitalErythrocyte distribution width [Ratio] by Automated countOrdered By: Molly Elaine on 60-04-8056Hvfdlkknbjq distribution width (RBC) [Ratio]13.9 %Jkxpis59.9-15.3FFairfield Medical CenterComment on above:Order Comment: FASTING. JKWPerformed By: #### CBC, CMP #### [facility] [address] [place] [address] [place] #### HIV SCREEN, HBCAB, IGM, HCVCASCADE #### [facility] ,Erythrocytes [#/volume] in Blood by Automated countOrdered By: Molly Elaine on 44-78-1411ZUX (Bld) [#/Vol]4.97 10*6/uLNormal3.60-5.00Ad[facility] County HospitalComment on above:Order Comment: FASTING. JKWPerformed By: #### CBC, CMP #### [facility] [address] [place] [address] [place] #### HIV SCREEN, HBCAB, IGM, HCVCASCADE #### [facility] ,Globulin Calc (S) [Mass/Vol]Ordered By: Molly Chele on 07-18-1014Cmqivela (S) [Mass/Vol]Serum globulin measurement by calculation (mass/volume)[facility] HospitalGlucose [Mass/volume] in Serum or PlasmaOrdered By: Molly Chele on 87-52-4231Kocrnml [Mass/Vol]182 mg/kNNghz79-879Oacsnobhl25 Thomas StreetComment on above:ADA recommended reference rangeRandom Glucose Reference Range is dependent on time and content of last meal. Glucose of more than 200 mg/dL in a nonstressed, ambulatory subject supports the diagnosisof Diabetes Mellitus.Order Comment: FASTING. JKWResult Comment: Random Glucose Reference Range is dependent on time and content of last meal. Glucose of more than 200 mg/dL in a nonstressed, ambulatory subject supports the diagnosis of Diabetes Mellitus. ADA recommended reference rangePerformed By: #### CBC, CMP #### [facility] [address] [place] [address] [place] #### HIV SCREEN, HBCAB, IGM, HCVCASCADE #### [facility] ,Glucose [Mass/Vol]Glucose [Mass/volume] in Serum or ObtwglVtsu05-691Qtsenblwh25 Thomas StreetComment on above:ADA recommended reference rangeRandom Glucose Reference Range is dependent on time and content of last meal. Glucose of more than 200 mg/dL in a nonstressed, ambulatory subject supports the diagnosisof Diabetes Mellitus.HCV Antibody Cascadeon 45-88-2802Vkvvlmsoz C Virus AntibodyNon-ReactiveNormalNon ReactiveThe Unc Health Johnston Physician GroupComment on above:Order Comment: FASTING. JKWPerformed By: #### CBC, CMP #### [facility] [address] [place] [address] [place] #### HIV SCREEN, HBCAB, IGM, HCVCASCADE #### [facility] ,Interpretation Hepatitis CCommentNormal.The [facility] Johnston Physician GroupComment on above:Order Comment: FASTING. JKWResult Comment: Not infected with HCV unless early or acute infection is suspected (which may be delayed in an immunocompromised individual), or other evidence exists to indicate HCV infection. Performed at: [address] [id number] Archeology Faculty Member: Oniel Saldana PhD, Phone: [phone] PERFORMED BY: [place] [id number] PATHOLOGIST FIRE MARSHAL REFINERY EFRA RING M.D.Performed By: #### CBC, CMP #### [facility] [address] [place] [address] #### HIV SCREEN, HBCAB, IGM, HCVCASCADE #### [facility] ,HIV 1/O/2 Antigen/Antibodyon 37-18-1829FZL Screen 4th GenerationNon-Reactive NormalNon ReactiveThe Un[facility] Health Johnston Physician GroupComment on above:Order Comment: FASTING. JKWResult Comment: HIV-1/HIV-2 antibodies and HIV-1 p24 antigen were NOT detected. There is no laboratory evidence of HIV infection. HIV Negative Performed at: [address] [id number] Archeology Faculty Member: Oniel Saldana PhD, Phone: [phone] PERFORMED BY: [place] [id number] PATHOLOGIST FIRE MARSHAL REFINERY EFRA RING M.D.Performed By: #### CBC, CMP #### [facility] [address] [place] [address] #### HIV SCREEN, HBCAB, IGM, HCVCASCADE #### [facility] ,HIV antibody and antigen panelOrdered By: Molly Elaine on 07-95-0748HHC 1+2 Ab+HIV1 p24 Ag IA QlHIV 1 and HIV-2 antibody assay with HIV-1 p24 antigen detectionNon ReactiveAdams County HospitalComment on above: HIV-1/HIV-2 antibodies and HIV-1 p24 antigen were NOTdetected. There is no laboratory evidence of HIV infection.HIV NegativePerformed at: [facility] [id number] Director: Oniel Saldana PhD, Phone: [phone] Auto (Bld) [Volume fraction]Ordered By: Molly Elaine on 83-69-6935Dmaolokisn (Bld) [Volume fraction]Hematocrit [Volume Fraction] of Blood by Automated count34.0-46.4FFairfield Medical Center Hematocrit [Volume Fraction] of Blood by Automated countOrdered By: Molly Elaine on 20-29-6331Idwfimvksa (Bld) [Volume fraction]44.7 %Qzzfgm48.0-46.4 [facility] HospitalComment on above:Order Comment: FASTING. JKW Performed By: #### CBC, CMP #### [facility] [address] [place] [address] #### HIV SCREEN, HBCAB, IGM, HCVCASCADE #### [facility] ,Hemoglobin [Mass/volume] in BloodOrdered By: Molly Elaine on 03-31-2024 Hemoglobin (Bld) [Mass/Vol]15.5 g/aVFnkt06.8-15.4FFairfield Medical CenterComment on above:Order Comment: FASTING. JKWPerformed By: #### CBC, CMP #### [address] #### HIV SCREEN, HBCAB, IGM, HCVCASCADE #### [facility] ,Hemoglobin (Bld) [Mass/Vol]Hemoglobin [Mass/volume] in GzatpDtef35.8-15.4 [facility] HospitalHepatitis B Core Antibodyon 85-52-3273Rukkttdyf B Core AntibodyNegativeNormalNegativeThe Un[facility] Health Johnston Physician GroupComment on above:Order Comment: FASTING. JKWResult Comment: Performed at: [facility] [id number] [place], [place] [id number] Archeology Faculty Member: Oniel Saldana PhD, Phone: [phone] PERFORMED BY: [place] [id number] PATHOLOGIST FIRE MARSHAL REFINERY EFRA RING M.D.Performed By: #### CBC, CMP #### [address] #### HIV SCREEN, HBCAB, IGM, HCVCASCADE #### [facility] ,Hepatitis B virus core antibody assayOrdered By: Molly Elaine on 03-31-2024 Hepatitis B Core Total AntibodyNegativeNegativeAdams County Hospital Comment on above:Performed at: - [facility] [id number] Director: Oniel Saldana PhD, Phone: [phone] C virus IgG Ab [Presence] in Serum or Plasma by ImmunoassayOrdered By: Molly Elaine on 01-32-6506QYA IgG IA QlHepatitis C virus IgG Ab [Presence] in Serum or Plasma by ImmunoassayNon ReactiveAdams County HospitalImmunoglobulin M, Serumon 30-97-7441Samayaczytwgvc M, Serum65 mg/jMKghzoz55-895Mxe [facility] Johnston Physician GroupComment on above:Order Comment: FASTING. JKWResult Comment: Performed at: - [id number] [place], [place] [id number] Archeology Faculty Member: Oniel Saldana PhD, Phone: [phone] By: #### CBC, CMP #### [address] #### HIV SCREEN, HBCAB, IGM, HCVCASCADE #### [facility] ,Leukocytes [#/volume] corrected for nucleated erythrocytes in Blood by Automated counOrdered By: Molly Elaine on 62-12-6314BMV corrected for nucl RBC Auto (Bld) [#/Vol]9.9 10*3/uL3.8-11.6FFairfield Medical CenterWBC corrected for nucl RBC Auto (Bld) [#/Vol]Leukocytes [#/volume] corrected for nucleated erythrocytes in Blood by Automated coun3.8-11.6FFairfield Medical CenterLeukocytes [#/volume] in Blood by Automated countOrdered By: Molly Elaine on 32-99-6085LTG (Bld) [#/Vol]9.9 10*3/uLNormal3.8-11.6FFairfield Medical CenterComment on above:Order Comment: FASTING. JKWPerformed By: #### CBC, CMP #### [address] #### HIV SCREEN, HBCAB, IGM, HCVCASCADE #### [facility] ,Lymphocytes Auto (Bld) [#/Vol]Ordered By: Molly Elaine on 03-31-2024 Lymphocytes (Bld) [#/Vol]Lymphocytes [#/volume] in Blood by Automated count 1.00-4.8Ad[facility] County HospitalLymphocytes [#/volume] in Blood by Automated countOrdered By: Molly Elaine on 51-06-4529Bhjyehhbyyn (Bld) [#/Vol] 2.9 10*3/uLNormal1.00-4.8Ad[facility] County HospitalComment on above:Order Comment: FASTING. JKWPerformed By: #### CBC, CMP #### [place] [address] [place] #### HIV SCREEN, HBCAB, IGM, HCVCASCADE #### [facility] ,Lymphocytes/100 WBC Auto (Bld)Ordered By: Molly Elaine on 03-31-2024 Lymphocytes/100 WBC (Bld)Lymphocytes/100 leukocytes in Blood by Automated count. [facility] County HospitalLymphocytes/100 leukocytes in Blood by Automated countOrdered By: Molly Elaine on 75-90-8946Tinvtptxekc/100 WBC (Bld) 29.0 %Normal.[facility] HospitalComment on above:Order Comment: FASTING. JKWPerformed By: #### CBC, CMP #### [place] [address] [place] #### HIV SCREEN, HBCAB, IGM, HCVCASCADE #### [facility] ,MCH Auto (RBC) [Entitic mass]Ordered By: Molly Maerena on 47-33-3808HWM (RBC) [Entitic mass]MCH [Entitic mass] by Automated count24.7-34.3FOhioHealth Doctors Hospital [Entitic mass] by Automated countOrdered By: Molly Maerena on 99-68-7236AJC (RBC) [Entitic mass]31.1 imXrosvn29.7-34.3FFairfield Medical CenterComment on above:Order Comment: FASTING. JKWPerformed By: #### CBC, CMP #### [address] #### HIV SCREEN, HBCAB, IGM, HCVCASCADE #### [facility] ,MCHC Auto (RBC) [Mass/Vol]Ordered By: Molly Maerena on 46-34-1149LMXN (RBC) [Mass/Vol]34.6 g/dL32.0-35.0[facility] Medical CenterHC (RBC) [Mass/Vol]MCHC [Mass/volume] by Automated count32.0-35.0[facility] HospitalMCV Auto (RBC) [Entitic vol]Ordered By: Molly Chele on 16-16-4150MVN (RBC) [Entitic vol]MCV [Entitic volume] by Automated -646 [facility] CenterV [Entitic volume] by Automated countOrdered By: Molly Chele on 54-11-6965RNM (RBC) [Entitic vol]90.0 cLFdaruo26-649 [facility] HospitalComment on above:Order Comment: FASTING. JKW Performed By: #### CBC, CMP #### [place] [address] [place] #### HIV SCREEN, HBCAB, IGM, HCVCASCADE #### [facility] ,Monocytes Auto (Bld) [#/Vol]Ordered By: Molly Elaine on 99-99-6583Iiwjrsfxn (Bld) [#/Vol]Automated blood monocyte count0.0-0.8Ad[facility] HospitalMonocytes/100 WBC Auto (Bld)Ordered By: Molly Elaine on 03-31-2024 Monocytes/100 WBC (Bld)Automated monocyte %.[facility] Neutrophils Auto (Bld) [#/Vol]Ordered By: Molly Elaine on 70-42-6821Bdvgntqwwja (Bld) [#/Vol]Neutrophils [#/volume] in Blood by Automated count1.8-7.7FFairfield Medical CenterNeutrophils [#/volume] in Blood by Automated count Ordered By: Molly Elaine on 30-81-1157Snfordnhdvi (Bld) [#/Vol]6.1 10*3/uL Normal1.8-7.7FFairfield Medical CenterComment on above:Order Comment: FASTING. JKWPerformed By: #### CBC, CMP #### [address] #### HIV SCREEN, HBCAB, IGM, HCVCASCADE #### [facility] ,Neutrophils/100 WBC Auto (Bld)Ordered By: Molly Elaine on 03-31-2024 Neutrophils/100 WBC (Bld)Automated neutrophil %.[facility] HospitalNo Panel InformationOrdered By: Molly Elaine on 02-17-1111Rseohrkyb GFR (CKD-EPI)> 60.0 mL/MinAdams County HospitalHepatitis C InterpretationComment.[facility] HospitalComment on above:Not infected with HCV unless early or acute infection issuspected (which may be delayed in an immunocompromisedindividual), or other evidence exists to indicate HCVinfection.Performed at: - Lab[address] [id number] Director: Oniel Saldana PhD, Phone: [phone] Creatinine Clearance (ChemN/[facility]ayette Medical CenterNucleated erythrocytes [Presence] in Blood by Automated countOrdered By: Molly Elaine on 81-35-3216Efcrjimvf RBC Auto Ql (Bld)0.1 /100{WBC}0-0.5FFairfield Medical CenterNucleated RBC Auto Ql (Bld)Nucleated erythrocytes [Presence] in Blood by Automated count0-0.5FFairfield Medical CenterPlatelet mean volume Auto (Bld) [Entitic vol]Ordered By: Molly Elaine on 60-99-3178Zniykhkj mean volume (Bld) [Entitic vol]Platelet mean volume [Entitic volume] in Blood by Automated count6.3-10.7FFairfield Medical CenterPlatelet mean volume [Entitic volume] in Blood by Automated countOrdered By: Molly Elaine on 11-29-8203Ldkkttcq mean volume (Bld) [Entitic vol]7.7 fLNormal6.3-10.7FFairfield Medical CenterComment on above:Order Comment: FASTING. JKWPerformed By: #### CBC, CMP #### [facility] [address] [place] [address] [place] #### HIV SCREEN, HBCAB, IGM, HCVCASCADE #### [facility] ,Platelets Auto (Bld) [#/Vol]Ordered By: Molly Elaine on 53-51-4085Coxmgiqmv (Bld) [#/Vol]Platelets [#/volume] in Blood by Automated gdgri265-621LexqkizymAdams County HospitalPlatelets [#/volume] in Blood by Automated countOrdered By: Molly Elaine on 53-01-9950Vtyvepoyv (Bld) [#/Vol]313 10*3/lPVeosbk859-822 [facility] HospitalComment on above:Order Comment: FASTING. JKW Performed By: #### CBC, CMP #### [facility] [address] [place] [address] [place] #### HIV SCREEN, HBCAB, IGM, HCVCASCADE #### [facility] ,Potassium [Moles/volume] in Serum or PlasmaOrdered By: Molly Maerena on 81-13-2945Pmtupbbxa [Moles/Vol]4.1 mmol/LNormal3.5-5.1FFairfield Medical CenterComment on above:Order Comment: FASTING. JKWPerformed By: #### CBC, CMP #### [facility] [address] [place] [address] [place] #### HIV SCREEN, HBCAB, IGM, HCVCASCADE #### [facility] ,Potassium [Moles/Vol]Potassium [Moles/volume] in Serum or Plasma3.5-5.1 [facility] HospitalProtein [Mass/volume] in Serum or PlasmaOrdered By: Molly Elaine on 48-34-0023Rbogtkv [Mass/Vol]6.6 g/dLNormal6.4-8.9[facility] HospitalComment on above:Order Comment: FASTING. JKWPerformed By: #### CBC, CMP #### [place] [address] [place] #### HIV SCREEN, HBCAB, IGM, HCVCASCADE #### [facility] ,Protein [Mass/Vol]Protein [Mass/volume] in Serum or Plasma6.4-8.9Ad[facility] HospitalQuantitative serum or plasma hepatitis C virus RNA assay by real-time PCR (units/voluOrdered By: Molly Elaine on 41-47-7235FGY RNA HARJINDER+probe QnHepatitis C virus RNA [Units/volume] (viral load) in Serum or Plasma by HARJINDER with probAdams County HospitalRBC Auto (Bld) [#/Vol]Ordered By: Molly Elaine on 45-13-6172BAX (Bld) [#/Vol]Erythrocytes [#/volume] in Blood by Automated count3.60-5.00[facility] South Campuserum globulin measurement by calculation (mass/volume)Ordered By: Molly Elaine on 03-31-2024 Globulin (S) [Mass/Vol]2.5 g/dLNormCentervilleComment on above:Order Comment: FASTING. JKWPerformed By: #### CBC, CMP #### [place] [address] [place] #### HIV SCREEN, HBCAB, IGM, HCVCASCADE #### [facility] ,Serum or plasma IgM measurement (mass/volume)Ordered By: Molly Elaine on 56-48-7171BsN [Mass/Vol]IgM [Mass/volume] in Serum or Jrtndm90-404UpeziajlaAdams County HospitalComment on above:Performed at: [facility] [address] [id number] Director: Oniel Saldana PhD, Phone: [phone] or plasma albumin/globulin mass ratioOrdered By: Molly Elaine on 16-24-8728Hqwehgi/Globulin [Mass ratio]1.6 {ratio}[facility] Lorain HospitalComment on above:Order Comment: FASTING. JKWPerformed By: #### CBC, CMP #### [address] #### HIV SCREEN, HBCAB, IGM, HCVCASCADE #### [facility] ,Albumin/Globulin [Mass ratio]Serum or plasma albumin/globulin mass ratio [facility] South Campuserum or plasma anion gap determinationOrdered By: Molly Elaine on 68-87-4830Uaymt gap [Moles/Vol]12.7 mmol/LNormal6.0-15.0 [facility] HospitalComment on above:Order Comment: FASTING. JKW Performed By: #### CBC, CMP #### [facility] [address] [place] [address] [place] #### HIV SCREEN, HBCAB, IGM, HCVCASCADE #### [facility] ,Anion gap [Moles/Vol]Serum or plasma anion gap determination6.0-15.0[facility] South Campuserum or plasma hepatitis C virus RNA measurement by probe and target amplification mOrdered By: Molly Elaine on 44-38-2709YUV RNA HARJINDER+probe [Log units/Vol]Hepatitis C virus RNA [log units/volume] (viral load) in Serum or Plasma by HARJINDER [facility] Hospitalodium [Moles/volume] in Serum or PlasmaOrdered By: Molly Maemarquitajade on 48-95-7121Qxviub [Moles/Vol]136 mmol/QVofjca700-767KsifeqioaAdams County HospitalComment on above:Order Comment: FASTING. JKWPerformed By: #### CBC, CMP #### [place] [address] [place] #### HIV SCREEN, HBCAB, IGM, HCVCASCADE #### [facility] ,Sodium [Moles/Vol]Sodium [Moles/volume] in Serum or Tsmyej325-254GmshykhhxAdams County HospitalUrea nitrogen [Mass/volume] in Serum or PlasmaOrdered By: Molly Maerena on 45-60-4444Qwha nitrogen [Mass/Vol]10 mg/dLNogood hope hospital12-25Ad[facility] HospitalComment on above:Order Comment: FASTING. JKWPerformed By: #### CBC, CMP #### [facility] [address] [place] [address] [place] #### HIV SCREEN, HBCAB, IGM, HCVCASCADE #### [facility] ,Urea nitrogen [Mass/Vol]Urea nitrogen [Mass/volume] in Serum or Plasma12-25 [facility] HospitalWBC Auto (Bld) [#/Vol]Ordered By: Molly Chele on 78-60-7678NOE (Bld) [#/Vol]Leukocytes [#/volume] in Blood by Automated count 3.8-11.6FFairfield Medical CenterCapillary blood glucose measurement by glucometer (mass/volume)Ordered By: MAICO Steinberg on 95-34-5396Yyygrrg [Mass/Vol]180 mg/dLNoFayette County Memorial HospitalComment on above: Random Glucose Reference Range is dependent on time and content of last meal. Glucose of more than 200 mg/dL in a nonstressed, ambulatory subject supports the diagnosis of Diabetes Mellitus.Result Comment: Random Glucose Reference Range is dependent on time and content of last meal. Glucose of more than 200 mg/dL in a nonstressed, ambulatory subject supports the diagnosis of Diabetes Mellitus. PERFORMED BY: [address] [address] PATHOLOGIST FIRE MARSHAL REFINERY EFRA RING M.D.Performed By: #### GLULS #### Point of Care testing ,GLUCOSE POCT GLUCOMETERSon 55-95-1704Gveeybs [Mass/Vol]180 mg/dLUniversity of Missouri Children's Hospital Comment on above:Random Glucose Reference Range is dependent on time and content of last meal. Glucose of more than 200 mg/dL in a nonstressed, ambulatory subject supports the diagnosis of Diabetes Mellitus. JACKELIN Mansfield HospitalHCG ( test) IA.rapid Ql (U)Ordered By: MAICO Steinberg on 83-05-9621KCJ ( test) Ql (U)NegativeAdams County HospitalHCG,Urineon 13-64-1473Izag HCG ( test) Ql (U)NegativeNoCarolinas ContinueCARE Hospital at Kings Mountain Physician GroupComment on above:Result Comment: PERFORMED BY: [facility] [address] [place] [address] PATHOLOGIST FIRE MARSHAL REFINERY EFRA RING M.D.Performed By: #### UHCG #### [place] [id number] USALon 20-97-6825ZRtpocdpk: [id number] Received: 01/31/24 Status: CRISTOFER Burnham Num: [id number] Spec Type: Surgical Subm Dr: MAICO Bishop Tissues: A Endometrium - Curettings (ENDOMETRIAL CURETTINGS) Procedures: HE/2, Gross/Micro L4 Age/ Patient Sex Location Account Attending Physician Natividad Bonner 38/F [place] [id number] MAICO Bishop SPEC NUM: [id number] RECD: 01/31/24 STATUS: CRISTOFER REMac NUM: [id number] KLARISSA: 01/31/24- SUBM DR: MAICO Bishop ENTERED: 01/31/24 [facility] DR: SPEC TYPE: Surgical DEPT: S ORDERED: [...] entirely submitted in cassette A1. DM Specimen: [id number] Received: 01/31/24 Status: CRISTOFER Burnham Num: [id number] Spec Type: Surgical Subm Dr: Mely Steinberg MD-NOMS Tissues: A Endometrium - Curettings (ENDOMETRIAL CURETTINGS) Procedures: HE/2, Gross/Micro L4 Patient: Natividad Bonner [id number] (Continued) Specimen: [id number] Received: 01/31/24 (Continued) Signed (signature on file) María Soto MD 02/10/242026 Specimen: [id number] Received: 01/31/24 Status: CRISTOFER Burnham Num: [id number] Spec Type: Surgical Subm Dr: Mely Steinberg MD-JACKELIN Tissues: A Endometrium - Curettings (ENDOMETRIAL CURETTINGS) Procedures: /2, Gross/Micro L4 Patient: Natividad Bonner [id number] (Continued) Specimen: [id number] Received: 01/31/24 (Continued) Microscopic Description Microscopic examinations are performed supporting the above interpretation CPT Codes 95746 Specimen: [id number] Received: 01/31/24 Status: CRISTOFER Burnham Num: [id number] Spec Type: Surgical Subm Dr: MAICO Bishop Tissues: A Endometrium - Curettings (ENDOMETRIAL CURETTINGS) Procedures: HE/2, Gross/Kiara L4 Patient: Natividad Bonner [id number] (Continued) Signed (signature on file) María Soto MD 02/10/242026[facility] GrouphCG, quantitative, pregnancyon 01-31-2024 Beta HCG ( test) Ql (U)NegativeNOMS HealthcareNOMS HealthcareAlanine aminotransferase [Enzymatic activity/volume] in Serum or PlasmaOrdered By: NII Steinberg on 57-81-5411XNM [Catalytic activity/Vol]14 U/L7-52Fire[facility] Regional Medical CenterAlbumin [Mass/volume] in Serum or Plasma by Bromocresol green (BCG) dye binding methoOrdered By: MAICO Steinberg on 01-21-2024 Albumin BCG dye [Mass/Vol]4.1 g/dL3.5-5.7FFairfield Medical Center Alkaline phosphatase [Enzymatic activity/volume] in Serum or PlasmaOrdered By: MAICO Steinberg on 49-12-4236PAO [Catalytic activity/Vol]79 U/L34-104 [facility] HospitalAspartate aminotransferase [Enzymatic activity/volume] in Serum or PlasmaOrdered By: MAICO Steinberg on 16-47-1190MBB [Catalytic activity/Vol]10 U/XInx39-25EpudsdlosAdams County HospitalBasophils Auto (Bld) [#/Vol]Ordered By: MAICO Steinberg on 01-21-2024 Basophils (Bld) [#/Vol]0.1 10*3/uL0.0-0.2FFairfield Medical Center Basophils/100 WBC Auto (Bld)Ordered By: MAICO Steinberg on 01-21-2024 Basophils/100 WBC (Bld)1.0 %.[facility] County HospitalBilirubin.total [Mass/volume] in Serum or PlasmaOrdered By: MAICO Steinberg on 01-21-2024 Bilirubin [Mass/Vol]0.3 mg/dL0.3-1.0Ad[facility] HospitalCBC W Auto Differential panel (Bld)on 81-32-4995Kzvvoqvdl (Bld) [#/Vol]0.1 10*3/uL0.0 - 0.2 10*3/uLNOMS HealthcareBasophils/100 WBC Manual cnt (Syn fld)1.0 %.NOMS HealthcareEosinophils (Bld) [#/Vol]0.3 10*3/uL0.0 - 0.45 10*3/uLNOMS Healthcare Eosinophils/100 WBC Manual cnt (Syn fld)2.5 %.NOMS HealthcareErythrocyte distribution width (RBC) [Ratio]13.8 %11.9 - 15.3 %NOMS HealthcareHematocrit (Bld) [Volume fraction]42.0 %34.0 - 46.4 %[facility] HealthcareHemoglobin (Bld) [Mass/Vol]14.7 g/dL11.8 - 15.4 g/dLNOWI HealthcareLymphocytes (Bld) [#/Vol]2.5 10*3/uL1.00 - 4.8 10*3/uLNOMS HealthcareLymphocytes/100 WBC Manual cnt (Syn fld) 25.3 %.[facility] Children's HospitalMCH (RBC) [Entitic mass]30.6 pg24.7 - 34.3 pgColumbia Regional HospitalHC (RBC) [Mass/Vol]35.0 g/dL32.0 - 35.0 g/dLUniversity of Missouri Children's HospitalMCV (RBC) [Entitic vol]87.4 fL80 - 100 fLHIGHLAND RIDGE HOSPITAL HealthcareMonocytes (Bld) [#/Vol]0.5 10*3/uL0.0 - 0.8 10*3/uLNOMS HealthcareMonocytes+Macrophages/100 WBC Manual cnt (Syn fld)5.3 %.[facility] HealthcareNeutrophils (Bld) [#/Vol]6.5 10*3/uL1.8 - 7.7 10*3/uLNOMS HealthcareNeutrophils/100 WBC Manual cnt (Syn fld)65.9 %.[facility] HealthcareNRBC0.1 /100{WBC}0 - 0.5 /100{WBC}NOM HealthcarePlatelet mean volume (Bld) [Entitic vol]7.3 fL6.3 - 10.7 fLHIGHLAND RIDGE HOSPITAL HealthcarePlatelets (Bld) [#/Vol]304 10*3/uL150 - 450 10*3/uLNOMS HealthcareRBC LM.HPF (Urine sed) [#/Area]4.80 /[HPF]3.60 - 5.00NOMS HealthcareWBC (Bld) [#/Vol]9.9 10*3/uL3.8 - 11.6 10*3/uL NOMS HealthcareWBC LM.HPF (Urine sed) [#/Area]9.9 10*3/uL3.8 - 11.6 10*3/uLNOMS [facility] HealthcareCalcium [Mass/volume] in Serum or PlasmaOrdered By: NII Steinberg on 02-22-0595Okgsnky [Mass/Vol]8.9 mg/dL8.6-10.3FFairfield Medical CenterCarbon dioxide, total [Moles/volume] in Serum or Plasma Ordered By: MAICO Steinberg on 00-91-1429OJ3 [Moles/Vol]21.3 mmol/L 21.0-31.0Ad[facility] County HospitalChloride [Moles/volume] in Serum or PlasmaOrdered By: MAICO Steinberg on 32-24-9482Bcmkcewm [Moles/Vol]104 mmol/E16-065YjwaylerpAdams County HospitalComprehensive metabolic panelon 73-51-6754Zscgnpg [Mass/Vol]4.1 g/dL3.5 - 5.7 g/dLNOSt. Louis VA Medical Center Albumin/Globulin [Mass ratio]1.6 {ratio}[facility] HealthcareALP [Catalytic activity/Vol]79 U/L34 - 104 U/LNOMS HealthcareALT [Catalytic activity/Vol]14 U/L 7 - 52 U/LNOMS HealthcareAnion gap [Moles/Vol]14.8 mmol/L6.0 - 15.0NOWI HealthcareAST [Catalytic activity/Vol]10 U/LLow13 - 39 U/LNOMS Healthcare Bilirubin [Mass/Vol]0.3 mg/dL0.3 - 1.0 mg/dLNOWI HealthcareCalcium [Mass/Vol]8.9 mg/dL8.6 - 10.3 mg/dLNOWI HealthcareChloride [Moles/Vol]104 mmol/L98 - 107 mmol/LNOMS HealthcareCO2 [Moles/Vol]21.3 mmol/L21.0 - 31.0 mmol/LNOMS Healthcare Creatinine (U) [Mass/Vol]0.58 mg/dLLow0.60 - 1.20 mg/dLNOSt. Louis VA Medical CenterGFR/1.73 sq M.predicted MDRD (S/P/Bld) [Vol rate/Area]mL/min/{1.73_m2}[facility] Globulin (S) [Mass/Vol]2.5 g/dLNOWI HealthcareGlucose [Mass/Vol]199 mg/dEGxeb74 - 100 mg/dLNOSt. Louis VA Medical CenterComment on above:Random Glucose Reference Range is dependent on time and content of last meal. Glucose of more than 200 mg/dL in a nonstressed, ambulatory subject supports the diagnosis of Diabetes Mellitus. ADA recommended reference range Interpretation and review of laboratory resultsAbnormalNOMS HealthcarePotassium [Moles/Vol]4.1 mmol/L3.5 - 5.1 mmol/LNOMS HealthcareProtein [Mass/Vol]6.6 g/dL 6.4 - 8.9 g/dLNOMS HealthcareSodium [Moles/Vol]136 mmol/L136 - 145 mmol/LNOMS HealthcareUrea nitrogen [Mass/Vol]11 mg/dL7 - 25 mg/dLNOMS HealthcareNOMS HealthcareCreatinine [Mass/volume] in Serum or PlasmaOrdered By: MAICO Steinberg on 86-94-1214Xhtelnflnp [Mass/Vol]0.58 mg/dLLow0.60-1.20[facility] HospitalEosinophils Auto (Bld) [#/Vol]Ordered By: MAICO Steinberg on 58-13-1944Ouqszaqyrme (Bld) [#/Vol]0.3 10*3/uL0.0-0.45[facility] HospitalEosinophils/100 WBC Auto (Bld)Ordered By: MAICO Steinberg on 96-84-9344Fkdkiubevac/100 WBC (Bld)2.5 %.[facility] Erythrocyte distribution width Auto (RBC) [Ratio]Ordered By: MAICO Steinberg on 54-07-7381Ruckqyhnkbk distribution width (RBC) [Ratio]13.8 %11.9-15.3 [facility] HospitalGlobulin Calc (S) [Mass/Vol]Ordered By: MAICO Steinberg on 12-23-9043Zkidkpct (S) [Mass/Vol]2.5 g/dLAdams County HospitalGlucose [Mass/volume] in Serum or PlasmaOrdered By: MAICO Steinberg on 27-57-8231Yumgagj [Mass/Vol]199 mg/bBSxys71-120RjaxvboeiAdams County HospitalComment on above:ADA recommended reference rangeRandom Glucose Reference Range is dependent on time and content of last meal. Glucose of more than 200 mg/dL in a nonstressed, ambulatory subject supports the diagnosisof Diabetes Mellitus.Hematocrit Auto (Bld) [Volume fraction]Ordered By: MAICO Steinberg on 82-39-0475Dqmswqytis (Bld) [Volume fraction]42.0 %34.0-46.4 [facility] HospitalHemoglobin [Mass/volume] in BloodOrdered By: MAICO Steinberg on 78-51-2801Nlammuenqg (Bld) [Mass/Vol]14.7 g/dL11.8-15.4 [facility] HospitalLeukocytes [#/volume] corrected for nucleated erythrocytes in Blood by Automated counOrdered By: MAICO Steinberg on 34-25-9326RLH corrected for nucl RBC Auto (Bld) [#/Vol]9.9 10*3/uL3.8-11.6 [facility] HospitalLymphocytes Auto (Bld) [#/Vol]Ordered By: NII Steinberg on 85-79-5136Mxquzwyscnv (Bld) [#/Vol]2.5 10*3/uL1.00-4.8 [facility] HospitalLymphocytes/100 WBC Auto (Bld)Ordered By: NII Steinberg on 89-81-2652Mlcqmylecjf/100 WBC (Bld)25.3 %.[facility] CenterH Auto (RBC) [Entitic mass]Ordered By: MAICO Steinberg on 97-00-0592SIO (RBC) [Entitic mass]30.6 pg24.7-34.3FFairfield Medical CenterMCHC Auto (RBC) [Mass/Vol]Ordered By: MAICO Steinberg on 38-89-9440TQHY (RBC) [Mass/Vol]35.0 g/dL32.0-35.0[facility] HospitalMCV Auto (RBC) [Entitic vol]Ordered By: MAICO Steinberg on 01-21-2024 MCV (RBC) [Entitic vol]87.4 mP94-662UyjscbhovAdams County HospitalMonocytes Auto (Bld) [#/Vol]Ordered By: MAICO Steinberg on 00-09-5623Qaetbwtwn (Bld) [#/Vol]0.5 10*3/uL0.0-0.8[facility] HospitalMonocytes/100 WBC Auto (Bld)Ordered By: MAICO Steinberg on 39-49-9627Wocljxnyn/100 WBC (Bld)5.3 % .[facility] HospitalNeutrophils Auto (Bld) [#/Vol]Ordered By: NII Steinberg on 63-49-2311Xigezzqwrxs (Bld) [#/Vol]6.5 10*3/uL1.8-7.7 [facility] HospitalNeutrophils/100 WBC Auto (Bld)Ordered By: NII Steinberg on 46-37-2119Jmkreehcnbs/100 WBC (Bld)65.9 %.[facility] HospitalNo Panel InformationOrdered By: MAICO Steinberg on 97-20-0599Xxwyguiss GFR (CKD-EPI)> 60.0 mL/MinAdams County Hospital Pharmacy Creatinine Clearance (ChemN/AFFairfield Medical CenterNucleated erythrocytes [Presence] in Blood by Automated countOrdered By: MAICO Steinberg on 36-01-8495Qmykrzosg RBC Auto Ql (Bld)0.1 /100{WBC}0-0.5FFairfield Medical CenterPlatelet mean volume Auto (Bld) [Entitic vol]Ordered By: MAICO Steinberg on 07-88-5361Skgybfar mean volume (Bld) [Entitic vol]7.3 fL 6.3-10.7FFairfield Medical CenterPlatelets Auto (Bld) [#/Vol]Ordered By: MAICO Steinberg on 76-82-8002Xjqnmowlb (Bld) [#/Vol]304 10*3/yR012-770 [facility] HospitalPotassium [Moles/volume] in Serum or Plasma Ordered By: MAICO Steinberg on 69-04-7192Azgrpdjxi [Moles/Vol]4.1 mmol/L 3.5-5.1FFairfield Medical CenterProtein [Mass/volume] in Serum or Plasma Ordered By: MAICO Steibnerg on 46-87-7923Hbycgsc [Mass/Vol]6.6 g/dL6.4-8.9 [facility] HospitalRBC Auto (Bld) [#/Vol]Ordered By: MAICO Steinberg on 57-65-2263PJG (Bld) [#/Vol]4.80 10*6/uL3.60-5.00[facility] Campuserum or plasma albumin/globulin mass ratioOrdered By: MAICO Steinberg on 60-44-0498Fhtupjz/Globulin [Mass ratio]1.6 {ratio} [facility] Campuserum or plasma anion gap determinationOrdered By: MAICO Steinberg on 82-77-2728Gvbau gap [Moles/Vol]14.8 mmol/L6.0-15.0 [facility] Campusodium [Moles/volume] in Serum or PlasmaOrdered By: MAICO Steinberg on 64-37-2591Vnmuja [Moles/Vol]136 mmol/I198-090 [facility] HospitalUrea nitrogen [Mass/volume] in Serum or Plasma Ordered By: MAICO Steinberg on 70-98-1575Bcnq nitrogen [Mass/Vol]11 mg/dL 7-25[facility] HospitalWBC Auto (Bld) [#/Vol]Ordered By: MAICO Steinberg on 23-43-5290QAH (Bld) [#/Vol]9.9 10*3/uL3.8-11.6FFairfield Medical CenterAlbumin [Mass/volume] in Serum or Plasma by Bromocresol green (BCG) dye binding methoOrdered By: Nigel Lawson on 90-36-9915Lsozshx BCG dye [Mass/Vol]4.4 g/dL3.5-5.7FFairfield Medical CenterCalcium [Mass/volume] in Serum or PlasmaOrdered By: Nigel Lawson on 59-71-5444Rculeek [Mass/Vol]9.3 mg/dL8.6-10.3FFairfield Medical CenterCarbon dioxide, total [Moles/volume] in Serum or PlasmaOrdered By: Nigel Lawson on 20-95-3434JY5 [Moles/Vol]23.3 mmol/L21.0-31.0[facility] HospitalChloride [Moles/volume] in Serum or PlasmaOrdered By: Nigel Lawson on 48-00-1261Zssqaxyl [Moles/Vol]106 mmol/R95-394LwrsrtjdeAdams County HospitalCholesterol [Mass/volume] in Serum or PlasmaOrdered By: Nigel Lawson on 10-18-2023 Cholesterol [Mass/Vol]125 mg/aY919-648BzoxguvysAdams County HospitalComment on above:Chol less than 200 mg/dl low riskChol 201-239 mg/dl borderline riskChol 240 mg/dl and greater high riskCholesterol in LDL Calc [Mass/Vol]Ordered By: Nigel Lawson on 45-48-4657Hhcinpnafsa in LDL [Mass/Vol]61 mg/dL0-100[facility] HospitalComment on above:LDL ATP III CLASSIFICATIONLDL less than 100 mg/dL OptimalLDL 100-129 mg/dL Near or above jjjsyvxUHI636-512 mg/dL Borderline highLDL 160-189 mg/dL HighLDL greater than 189 mg/dL Very high Cholesterol in VLDL Calc [Mass/Vol]Ordered By: Nigel Lawson on 10-18-2023 Cholesterol in VLDL [Mass/Vol]32 mg/dLAdams County Hospital Creatinine [Mass/volume] in Serum or PlasmaOrdered By: Nigel Lawson on 08-91-5655Txcprudjis [Mass/Vol]0.63 mg/dL0.60-1.20[facility] HospitalCreatinine [Mass/volume] in UrineOrdered By: Nigel Lawson on 10-18-2023 Creatinine (U) [Mass/Vol]51.0 mg/dLAdams County HospitalComment on above:No reference range establishedGlucose [Mass/volume] in Serum or Plasma Ordered By: Nigel Lawson on 21-62-2012Czmijlw [Mass/Vol]126 mg/zO55-596 [facility] HospitalComment on above:ADA recommended reference rangeRandom Glucose Reference Range is dependent on time and content of last meal. Glucose of more than 200 mg/dL in a nonstressed, ambulatory subject supports the diagnosisof Diabetes Mellitus.Microalbumin [Mass/volume] in Urine Ordered By: Nigel Lawson on 74-04-1741Gbzxslb DL <= 20 mg/L (U) [Mass/Vol]mg/dL 0.0-1.8[facility] HospitalNo Panel InformationOrdered By: Nigel Lawson on 96-75-3877Yfgosdtzc GFR (CKD-EPI)> 60.0 mL/MinAdams County HospitalPharmacy Creatinine Clearance (ChemN/AFFairfield Medical CenterPhosphate [Mass/volume] in Serum or PlasmaOrdered By: Nigel Lawson on 84-51-4812Zcrmvifzv [Mass/Vol]3.8 mg/dL2.5-4.5FFairfield Medical Center Potassium [Moles/volume] in Serum or PlasmaOrdered By: Nigel Lawson 43-44-1565Jhszfixoj [Moles/Vol]4.2 mmol/L3.5-5.1FCleveland Clinic Children's Hospital for Rehabilitationerum or plasma anion gap determinationOrdered By: Nigel Lawson 93-09-3919Jdthl gap [Moles/Vol]11.9 mmol/L6.0-15.0[facility] Campuserum or plasma high density lipoprotein (HDL) cholesterol measurement Ordered By: Nigel Lawson 38-28-6099Gmmwilfzanc in HDL [Mass/Vol]32 mg/dL 23-92[facility] HospitalComment on above:HDL CHOL ATP-III CLASSIFICATION Cardiovascular RiskHDL > or equal to 60 mg/dL LOWHDL < 40 mg/dL HIGHSerum or plasma total cholesterol/high density lipoprotein (HDL) cholesterol mass ratOrdered By: Nigel Lawson on 16-22-6606Fquidkoddvs.total/Cholesterol in HDL [Mass ratio]3.9 {ratio}<5.0[facility] South Campusodium [Moles/volume] in Serum or PlasmaOrdered By: Nigel Lawson 64-48-2600Ddhpyp [Moles/Vol]137 mmol/Y427-467CchvucwpeAdams County HospitalTriglyceride [Mass/volume] in Serum or PlasmaOrdered By: Nigel Lawson on 10-18-2023 Triglyceride [Mass/Vol]162 mg/dL0-149[facility] HospitalComment on above:TRIG ATP III CLASSIFICATIONTRIG less than 150 mg/dL NormalTRIG 150-199 mg/dL Borderline highTRIG 200-500 mg/dL High TRIG greater than 500 mg/dL Very highStandard traceable to the Center for Disease Conrtrol and Prevention (CDC) test method.Urea nitrogen [Mass/volume] in Serum or PlasmaOrdered By: Nigel Lawson on 34-60-0186Tfdh nitrogen [Mass/Vol]11 mg/dL7-[facility] HospitalUrine microalbumin/creatinine mass ratioOrdered By: Nigel Lawson on 63-03-9430Kunjaih/Creatinine DL <= 20 mg/L (U) [Mass ratio]TNPAdams County HospitalComment on above:Test not performedVitamin D+Metabolites [Mass/volume] in Serum or PlasmaOrdered By: Nigel Lawson on 04-17-4388Nxbbrnx D+Metabolites [Mass/Vol]17.6 ng/cP21-273EcsnlgydrAdams County HospitalComment on above:VITAMIN D STATUS 25(OH)VITAMIN D RANGE (ng/mL) Deficient <20 Insufficient 20 to <19Zohpqedfbo16 to 100Reference: Zoe MF,Steve NC, Catie THOMPSON, et al. Evaluation,treatment, and prevention of vitamin D deficiency; an Endocrine Society clinical practice guideline. JCEM. 2010; 96 (7):1911-30.Activated partial thromboplastin time (aPTT) in platelet poor plasma by coagulation aOrdered By: Stephane Alonso on 94-55-2874iFIB Coag (PPP) [Time] 29.8 s25.1-36.5FFairfield Medical CenterComment on above:A hematocrit value greater than 55% may lead to inaccurate results in coagulation testing. Patientshaving hematocrit values >55% require a special collection tube for coagulation studies. Please contact the laboratory at [phone] for redraw instructions.Alanine aminotransferase [Enzymatic activity/volume] in Serum or PlasmaOrdered By: Stephane Alonso on 18-08-7594KED [Catalytic activity/Vol]17 U/L 7-52[facility] HospitalAlbumin [Mass/volume] in Serum or Plasma by Bromocresol green (BCG) dye binding methoOrdered By: Stephane Alonso on 88-38-4672Hjrqsbf BCG dye [Mass/Vol]4.2 g/dL3.5-5.7FFairfield Medical CenterAlkaline phosphatase [Enzymatic activity/volume] in Serum or PlasmaOrdered By: Stephane Alonso on 79-22-7293PPZ [Catalytic activity/Vol]60 U/B83-132EmlayxditAdams County HospitalAspartate aminotransferase [Enzymatic activity/volume] in Serum or PlasmaOrdered By: Stephane Alonso on 21-35-6802BTO [Catalytic activity/Vol]14 U/T24-10LdkkonjsmAdams County HospitalBasophils Auto (Bld) [#/Vol]Ordered By: Stephane Alonso on 16-02-5400Uxjsrukcf (Bld) [#/Vol]0.1 10*3/uL 0.0-0.2FFairfield Medical CenterBasophils/100 WBC Auto (Bld)Ordered By: Stephane Alonso on 46-65-8112Iaysuvdhd/100 WBC (Bld)0.7 %.[facility] HospitalBeta hydroxybutyrate [Moles/volume] in Serum or PlasmaOrdered By: Stephane Alonso on 74-23-1220Jsww hydroxybutyrate [Moles/Vol]0.20 mmol/L0.02-0.27 [facility] HospitalBilirubin.total [Mass/volume] in Serum or PlasmaOrdered By: Stephane Alonso 72-07-1499Xzqmbigqb [Mass/Vol]0.2 mg/dL 0.3-1.0[facility] HospitalCalcium [Mass/volume] in Serum or Plasma Ordered By: Stephane Alonso on 38-33-0517Mrfowpc [Mass/Vol]9.0 mg/dL8.6-10.3 [facility] HospitalCarbon dioxide, total [Moles/volume] in Serum or PlasmaOrdered By: Stephane Alonso on 99-25-7402YW3 [Moles/Vol]20.0 mmol/L 21.0-31.0[facility] HospitalChloride [Moles/volume] in Serum or PlasmaOrdered By: Stephane Alonso on 94-47-9436Sjiejmeh [Moles/Vol]104 mmol/L 98-107[facility] HospitalCreatinine [Mass/volume] in Serum or PlasmaOrdered By: Stephane Alonso on 05-35-2770Ticpdopccp [Mass/Vol]0.56 mg/dL 0.60-1.20[facility] HospitalEosinophils Auto (Bld) [#/Vol]Ordered By: Stephane Alonso on 82-77-3568Xqxwqhguawq (Bld) [#/Vol]0.1 10*3/uL0.0-0.45 [facility] HospitalEosinophils/100 WBC Auto (Bld)Ordered By: Stephane Alonso on 36-80-9983Augwhherhmo/100 WBC (Bld)0.6 %.[facility] HospitalErythrocyte distribution width Auto (RBC) [Ratio]Ordered By: Stephane Alonso on 28-21-4046Sddxwluzvjm distribution width (RBC) [Ratio]12.9 %11.9-15.3 [facility] HospitalGlobulin Calc (S) [Mass/Vol]Ordered By: Stephane Alonso on 28-70-4008Qiuxxdzn (S) [Mass/Vol]2.9 g/dLAdams County HospitalGlucose Glucometer (BldC) [Mass/Vol]Ordered By: NURIA RESENDEZ on 86-25-6416Qolnaci [Mass/Vol]365 mg/dLAdams County HospitalComment on above:Random Glucose Reference Range is dependent on time and content of last meal. Glucose of more than 200 mg/dL in a nonstressed, ambulatory subject supports the diagnosis of Diabetes Mellitus.Glucose [Mass/volume] in Serum or PlasmaOrdered By: Stephane Alonso on 48-40-3167Exfrwqj [Mass/Vol]331 mg/eG15-733 [facility] HospitalComment on above:ADA recommended reference rangeRandom Glucose Reference Range is dependent on time and content of last meal. Glucose of more than 200 mg/dL in a nonstressed, ambulatory subject supports the diagnosisof Diabetes Mellitus.Hematocrit Auto (Bld) [Volume fraction]Ordered By: Stephane Alonso on 54-59-0976Fasggkgwnv (Bld) [Volume fraction]42.3 %34.0-46.4FFairfield Medical CenterHemoglobin [Mass/volume] in BloodOrdered By: Stephane Alonso on 61-80-9357Nuvcevluka (Bld) [Mass/Vol]14.7 g/dL11.8-15.4FFairfield Medical CenterINR in Platelet poor plasma by Coagulation assayOrdered By: Stephane Alonso on 91-34-7833JUW Coag (PPP) [Relative time]1.0 {INR}[facility] HospitalComment on above: INR Therapeutic Range A) Pre- and Peroperative OAT started two weeks before surgery. NOT HIP SURGERY: 1.5 - 2.5 HIP SURGERY: 2 - 3B) Primary and secondary prevention of venous THROMBOSIS: 2 - 3C) Active venous thrombosis, pulmonary embolismand prevention of recurrent venous thrombosis: 2 - 3D) Prevention of arterial thromboembolismincluding patients with mechanical heart valves: 3 - 4.5 Laboratory - Chemistry and Chemistry - challengeOrdered By: Stephane Alonso on 72-70-3105XC6 [Moles/Vol]21.4 mmol/L24.0-29.0[facility] HCO3 (Bld) [Moles/Vol]20.4 mmol/L23.0-29.0[facility] Leukocytes [#/volume] corrected for nucleated erythrocytes in Blood by Automated counOrdered By: Stephane Alonso on 30-16-2687ZLF corrected for nucl RBC Auto (Bld) [#/Vol]9.5 10*3/uL3.8-11.6FFairfield Medical CenterLymphocytes Auto (Bld) [#/Vol]Ordered By: Stephane Alonso on 76-37-2424Rmrtzgtzcib (Bld) [#/Vol]2.2 10*3/uL1.00-4.8[facility] HospitalLymphocytes/100 WBC Auto (Bld)Ordered By: Stephane Alonso on 52-44-5954Hdqqsjiinwx/100 WBC (Bld)23.3 % .[facility] Auto (RBC) [Entitic mass]Ordered By: Stephane Alonso on 11-22-4042SFR (RBC) [Entitic mass]30.3 pg24.7-34.3FCommunity Memorial Hospital Auto (RBC) [Mass/Vol]Ordered By: Stephane Alonso on 08-07-2023 MCHC (RBC) [Mass/Vol]34.8 g/dL32.0-35.0[facility] HospitalMCV Auto (RBC) [Entitic vol]Ordered By: Stephane Alonso on 63-35-4032DKG (RBC) [Entitic vol]87.0 hB37-541QhqgukxrrAdams County HospitalMonocyte distribution width [Entitic volume] in Blood by AutomatedOrdered By: Stephane Alonso on 08-07-2023 Monocyte distribution width Auto (Bld) [Entitic vol]17.73 %0.00-20.00[facility] HospitalMonocytes Auto (Bld) [#/Vol]Ordered By: Stephane Alonso on 57-48-2457Xwqvunumm (Bld) [#/Vol]0.5 10*3/uL0.0-0.8[facility] HospitalMonocytes/100 WBC Auto (Bld)Ordered By: Stephane Alonso on 08-07-2023 Monocytes/100 WBC (Bld)5.4 %.[facility] HospitalNeutrophils Auto (Bld) [#/Vol]Ordered By: Stephane Alonso on 36-90-1338Kvakzujbnpz (Bld) [#/Vol]6.6 10*3/uL1.8-7.7FFairfield Medical CenterNeutrophils/100 WBC Auto (Bld) Ordered By: Stephane Alonso on 48-06-1968Nfniwgpwgch/100 WBC (Bld)70.0 %.[facility] HospitalNo Panel InformationOrdered By: Stephane Alonso on 99-29-8249Sgnhw Gas Critical ValueSee commentAdams County Hospital Comment on above:Critical Value called on: 08/07/2023 at 09:56Blood Gas Sample SiteVenousAdams County HospitalFiO221 %[facility] HospitalVenous Blood Base Excess-3.2 mmol/L-3.0-3.0[facility] HospitalVenous Blood Oxygen Content9.0 mmol/L6.6-9.7FFairfield Medical CenterVenous Blood Oxygen Oianrmiufp24.4 %73.0-76.0[facility] HospitalVenous Blood Partial Pressure CO232.7 mm[Hg]38.0-50.0[facility] HospitalVenous Blood Partial Pressure O281.9 mm[Hg]35.0-45.0[facility] HospitalVenous Blood pH7.417.32-7.43[facility] HospitalEstimated GFR (CKD-EPI)> 60.0 mL/MinAdams County Hospital Pharmacy Creatinine Clearance (Eyfd690.76[facility] Nucleated erythrocytes [Presence] in Blood by Automated countOrdered By: Stephane Alonso on 16-36-4256Ikvzcnknz RBC Auto Ql (Bld)0.1 /100{WBC}0-0.5FFairfield Medical CenterPlatelet mean volume Auto (Bld) [Entitic vol]Ordered By: Stephane Alonso on 75-78-0268Ltyrreao mean volume (Bld) [Entitic vol]7.9 fL 6.3-10.7FFairfield Medical CenterPlatelets Auto (Bld) [#/Vol]Ordered By: Stephane Alonso on 02-73-8186Xvewgwwxe (Bld) [#/Vol]349 10*3/jS591-945HugocxcvvAdams County HospitalPotassium [Moles/volume] in Serum or PlasmaOrdered By: Stephane Alonso on 89-53-9114Xbymqmymf [Moles/Vol]4.2 mmol/L3.5-5.1FFairfield Medical CenterProtein [Mass/volume] in Serum or PlasmaOrdered By: Stephane Alonso on 61-74-5538Foevxdz [Mass/Vol]7.1 g/dL6.4-8.9[facility] HospitalProthrombin time (PT)Ordered By: Stephane Alonso on 34-23-6098XZ Coag (PPP) [Time]11.1 s9.0-12.9[facility] HospitalComment on above:A hematocrit value greater than 55% may lead to inaccurate results in coagulation testing. Patientshaving hematocrit values >55% require a special collection tube for coagulation studies. Please contact the laboratory at [phone] for redraw instructions.RBC Auto (Bld) [#/Vol]Ordered By: Stephane Alonso on 53-71-5085TUO (Bld) [#/Vol]4.87 10*6/uL3.60-5.00[facility] South Campuserum or plasma albumin/globulin mass ratioOrdered By: Stephane Alonso on 50-29-4936Xsucxpw/Globulin [Mass ratio]1.4 {ratio}[facility] South Campuserum or plasma anion gap determinationOrdered By: Stephane Alonos on 04-82-4668Bxhzc gap [Moles/Vol]13.2 mmol/L6.0-15.0[facility] South Campusodium [Moles/volume] in Serum or PlasmaOrdered By: Stephane Alonso on 31-01-3725Jmctoq [Moles/Vol]133 mmol/S235-119ZiidsnaidAdams County Hospital Urea nitrogen [Mass/volume] in Serum or PlasmaOrdered By: Stephane Alonso on 11-42-5670Jhef nitrogen [Mass/Vol]11 mg/dL7-25[facility] WBC Auto (Bld) [#/Vol]Ordered By: Stephane Alonso on 16-61-5169IRG (Bld) [#/Vol] 9.5 10*3/uL3.8-11.6FFairfield Medical CenterLaboratory - Cytologyon [id number] Cyto stain Nom (Cvx/Vag) [ID][facility] HealthcareComment on above:Reference Range: ZL, CT(ASCP) CT screening location: [place] [address]. Cytology study comment Cyto stain Chris (Cvx/Vag) [Interp][facility] HealthcareComment on above:This Pap test has been evaluated with computer assisted technology. Microscopic observation Cyto stain Nom (Cvx)[facility]OMS HealthcareComment on above: Cytology Results: Negative for intraepithelial lesion or malignancy. Specimen source Cyto stain Nom (Cvx/Vag)[facility]S HealthcareComment on above:None givenStatement of adequacy Cyto stain (Cvx/Vag) [Interp][facility]S HealthcareComment on above:Satisfactory for evaluation. Endocervical/transformation zone component present. Laboratory - Microbiology and Antimicrobial susceptibilityon [id number] E6+E7 mRNA HARJINDER+probe Ql (Cvx)Not detectedNot DetectedNOMS HealthcareComment on above: Methodology: Tool And Gauge Inspector-Mediated Amplification This assay detects E6/E7 viral messenger RNA (mRNA) from 14 high-risk HPV types (16,18,31,33,35,39,45,51,52,56,58,59,66,68). Cervical sources are required for HPV testing. If a vaginal source from a patient who has had a total hysterectomy with removal of cervix was submitted, please contact the testing laboratory for alternative testing options. For additional information, please refer to http://education.eegoes/faq/XNJ728n0 (This link if provided for information/ educational purposes only.) No Panel Informationon 07-10-2023(ALWAYS MESSAGE)[facility] HealthcareComment on above:EXPLANATORY NOTE: The Pap is a screening test for cervical cancer. It is not a diagnostic test and is subject to false negative and false positive results. It is most reliable when a satisfactory sample, regularly obtained, is submitted with relevant clinical findings and history, and when the Pap result is evaluated along with historic and current clinical information. Clinical informationNOMS HealthcareComment on above:None givenDate of previous biopsyNOMS HealthcareComment on above:None givenDate of previous PAP smearNOMS HealthcareComment on above:None givenLast menstrual period start dateNOMS HealthcareComment on above:None givenPerforming Organization Information Site ID: [id number] Name: [employer] [facility] Address: [address] [place] [address], [address] [place] [id number] Director: Aj Avila MDMineral Area Regional [facility] HealthcareAlanine aminotransferase [Enzymatic activity/volume] in Serum or PlasmaOrdered By: Molly Elaine on 38-18-3526QBY [Catalytic activity/Vol]27 U/L7-52[facility] HospitalAlbumin [Mass/volume] in Serum or Plasma by Bromocresol green (BCG) dye binding methoOrdered By: Molly Elaine on 75-64-2167Qjtmbat BCG dye [Mass/Vol] 4.1 g/dL3.5-5.7FFairfield Medical CenterAlkaline phosphatase [Enzymatic activity/volume] in Serum or PlasmaOrdered By: Molly Elaine on 61-40-7385ITW [Catalytic activity/Vol]72 U/F78-802ZtaemmwbdAdams County HospitalAspartate aminotransferase [Enzymatic activity/volume] in Serum or PlasmaOrdered By: Molly Elaine on 77-03-3470FWR [Catalytic activity/Vol]18 U/W33-19FvybnutuoAdams County HospitalBilirubin.total [Mass/volume] in Serum or PlasmaOrdered By: Molly Elaine on 56-79-1077Vwnvpneik [Mass/Vol]0.4 mg/dL0.3-1.0[facility] HospitalCalcium [Mass/volume] in Serum or PlasmaOrdered By: Molly Elaine on 58-31-5878Ykjkmjw [Mass/Vol]8.8 mg/dL8.6-10.3FFairfield Medical CenterCarbon dioxide, total [Moles/volume] in Serum or PlasmaOrdered By: Molly Elaine on 49-57-4012MQ7 [Moles/Vol]25.9 mmol/L21.0-31.0[facility] HospitalChloride [Moles/volume] in Serum or PlasmaOrdered By: Molly Elaine on 43-43-7672Gyhlfmvf [Moles/Vol]102 mmol/H25-148AefqycncdAdams County HospitalCholesterol [Mass/volume] in Serum or PlasmaOrdered By: Molly Elaine on 40-07-4944Totuepjwvfg [Mass/Vol]128 mg/gJ005-586SxtoxcjqmAdams County HospitalComment on above:Chol less than 200 mg/dl low riskChol 201-239 mg/dl borderline riskChol 240 mg/dl and greater high riskCholesterol in LDL Calc [Mass/Vol]Ordered By: Molly Elaine on 69-26-2934Qjyfuftaoiv in LDL [Mass/Vol] 58 mg/dL0-100[facility] HospitalComment on above:LDL ATP III CLASSIFICATIONLDL less than 100 mg/dL OptimalLDL 100-129 mg/dL Near or above uruqcqeEHW679-616 mg/dL Borderline highLDL 160-189 mg/dL HighLDL greater than 189 mg/dL Very highCholesterol in VLDL Calc [Mass/Vol]Ordered By: Molly Elaine on 54-90-2861Npogzrxlxuj in VLDL [Mass/Vol]35 mg/dLAdams County HospitalCreatinine [Mass/volume] in Serum or PlasmaOrdered By: Molly Elaine on 59-61-4453Nvaufasxbe [Mass/Vol]0.53 mg/dL0.60-1.20[facility] HospitalErythrocyte distribution width Auto (RBC) [Ratio]Ordered By: Molly Elaine on 06-73-8209Egnmhxcfccv distribution width (RBC) [Ratio]12.9 %11.9-15.3 [facility] HospitalGlobulin Calc (S) [Mass/Vol]Ordered By: Molly Elaine on 19-90-4386Rdsirbbx (S) [Mass/Vol]2.3 g/dLAdams County HospitalGlucose [Mass/volume] in Serum or PlasmaOrdered By: Molly Elaine on 85-92-1028Mkbihbs [Mass/Vol]275 mg/iN36-605SyniprqcdAdams County Hospital Comment on above:ADA recommended reference rangeRandom Glucose Reference Range is dependent on time and content of last meal. Glucose of more than 200 mg/dL in a nonstressed, ambulatory subject supports the diagnosisof Diabetes Mellitus. Hematocrit Auto (Bld) [Volume fraction]Ordered By: Molly Elaine on 06-19-2023 Hematocrit (Bld) [Volume fraction]41.8 %34.0-46.4FFairfield Medical CenterHemoglobin [Mass/volume] in BloodOrdered By: Molly Elaine on 06-19-2023 Hemoglobin (Bld) [Mass/Vol]14.6 g/dL11.8-15.4FFairfield Medical Center Leukocytes [#/volume] corrected for nucleated erythrocytes in Blood by Automated counOrdered By: Molly Elaine on 31-34-3670YOB corrected for nucl RBC Auto (Bld) [#/Vol]8.1 10*3/uL3.8-11.6FBarnesville HospitalH Auto (RBC) [Entitic mass]Ordered By: Molly Elaine on 88-08-0573WRG (RBC) [Entitic mass] 30.9 pg24.7-34.3FFairfield Medical CenterMCHC Auto (RBC) [Mass/Vol] Ordered By: Molly Elaine on 88-75-9466UCJP (RBC) [Mass/Vol]34.8 g/dL32.0-35.0 [facility] HospitalMCV Auto (RBC) [Entitic vol]Ordered By: Molly Elaine on 20-46-5536LVE (RBC) [Entitic vol]88.6 wI08-532WmdzqckdyAdams County HospitalNo Panel InformationOrdered By: Molly Elaine on 06-19-2023 Estimated GFR (CKD-EPI)> 60.0 mL/MinAdams County HospitalFree Thyroxine (T4) Direct7.8 ug/dL4.5-12.0Ad[facility] HospitalComment on above:Performed at: - [facility] [id number] Director: Oniel Saldana PhD, Phone: [phone] Creatinine Clearance (ChemN/[facility] Medical CenterPlatelet mean volume Auto (Bld) [Entitic vol]Ordered By: Molly Elaine on 62-40-1766Hqtdltga mean volume (Bld) [Entitic vol]8.2 fL6.3-10.7FFairfield Medical Center Platelets Auto (Bld) [#/Vol]Ordered By: Molly Elaine on 85-66-2329Nmmglgowl (Bld) [#/Vol]276 10*3/sE254-894WhzywlobqAdams County HospitalPotassium [Moles/volume] in Serum or PlasmaOrdered By: Molly Elaine on 06-19-2023 Potassium [Moles/Vol]4.3 mmol/L3.5-5.1FFairfield Medical CenterProtein [Mass/volume] in Serum or PlasmaOrdered By: Molly Elaine on 76-96-0174Trnrrok [Mass/Vol]6.4 g/dL6.4-8.9Ad[facility] HospitalRBC Auto (Bld) [#/Vol] Ordered By: Molly Elaine on 42-38-8351JPE (Bld) [#/Vol]4.72 10*6/uL3.60-5.00 [facility] Campuserum or plasma albumin/globulin mass ratio Ordered By: Molly Elaine on 61-50-6148Sszviul/Globulin [Mass ratio]1.8 {ratio} [facility] Campuserum or plasma anion gap determinationOrdered By: Molly Elaine on 52-85-9446Eyncy gap [Moles/Vol]12.4 mmol/L6.0-15.0[facility] Campuserum or plasma high density lipoprotein (HDL) cholesterol measurementOrdered By: Molly Elaine on 62-15-7697Hkfqqhwjmwx in HDL [Mass/Vol]35 mg/tW56-28JuawdvjipAdams County HospitalComment on above:HDL CHOL ATP-III CLASSIFICATION Cardiovascular RiskHDL > or equal to 60 mg/dL LOWHDL < 40 mg/dL HIGHSerum or plasma total cholesterol/high density lipoprotein (HDL) cholesterol mass ratOrdered By: Molly Elaine on 06-19-2023 Cholesterol.total/Cholesterol in HDL [Mass ratio]3.7 {ratio}<5.0[facility] Campusodium [Moles/volume] in Serum or PlasmaOrdered By: Molly Elaine on 42-43-9368Kpfftv [Moles/Vol]136 mmol/B734-643XqooonyonAdams County HospitalThyrotropin [Units/volume] in Serum or PlasmaOrdered By: Molly Elaine on 84-20-3994FNT Qn5.40 m[IU]/L0.45-5.33[facility] HospitalTriglyceride [Mass/volume] in Serum or PlasmaOrdered By: Molly Elaine on 36-78-0284Kypehqdrgpos [Mass/Vol]177 mg/dL0-149[facility] Comment on above:TRIG ATP III CLASSIFICATIONTRIG less than 150 mg/dL NormalTRIG 150-199 mg/dL Borderline highTRIG 200-500 mg/dL High TRIG greater than 500 mg/dL Very highStandard traceable to the Center for Disease Conrtrol and Prevention (CDC) test method.Triiodothyronine (T3) [Mass/volume] in Serum or PlasmaOrdered By: Molly Elaine on 01-46-0113J6 [Mass/Vol]1.34 ng/mL0.87-1.78Ad[facility] HospitalUrea nitrogen [Mass/volume] in Serum or PlasmaOrdered By: Molly Elaine on 72-12-3433Fjro nitrogen [Mass/Vol]11 mg/dL7-25Ad[facility] HospitalA1C HEMOGLOBINon 42-85-3364JgP2r (Bld) [Mass fraction] 10.6 %[employer] Other HbA1c (Bld) [Mass fraction]on 03-57-0896E9Y HEMOGLOBIN [employer] Other a1c HEMOGLOBINon 27-69-0859WgG4y (Bld) [Mass fraction] 7.0 %[employer] Other alanine aminotransferase [Enzymatic activity/volume] in Serum or PlasmaOrdered By: Molly Elaine on 14-22-0621OBZ [Catalytic activity/Vol]69 U/L7-52Ad[facility] HospitalAlbumin [Mass/volume] in Serum or Plasma by Bromocresol green (BCG) dye binding methoOrdered By: Molly Elaine on 64-29-9235Fbuklmm BCG dye [Mass/Vol]3.9 g/dL3.5-5.7FFairfield Medical CenterAlkaline phosphatase [Enzymatic activity/volume] in Serum or PlasmaOrdered By: Molly Elaine on 82-30-5062UQB [Catalytic activity/Vol]75 U/L 34-104Ad[facility] HospitalAspartate aminotransferase [Enzymatic activity/volume] in Serum or PlasmaOrdered By: Molly Elaine on 47-81-5215GLM [Catalytic activity/Vol]30 U/L60-92JajrsdmxjAdams County Hospital Bilirubin.total [Mass/volume] in Serum or PlasmaOrdered By: Molly Elaine on 51-26-4874Svfvpfizn [Mass/Vol]0.3 mg/dL0.3-1.0[facility] Calcium [Mass/volume] in Serum or PlasmaOrdered By: Molly Elaine on 10-02-2022 Calcium [Mass/Vol]8.6 mg/dL8.6-10.3FFairfield Medical CenterCarbon dioxide, total [Moles/volume] in Serum or PlasmaOrdered By: Molly Elaine on 99-68-5629LD4 [Moles/Vol]28.2 mmol/L21.0-31.0[facility] Chloride [Moles/volume] in Serum or PlasmaOrdered By: Molly Elaine on 56-76-3130Upaofdvd [Moles/Vol]100 mmol/B32-592VvmzfotxkAdams County Hospital Cholesterol [Mass/volume] in Serum or PlasmaOrdered By: Molly Elaine on 11-81-4088Xwlhcennqhu [Mass/Vol]138 mg/iV495-143CjgjynirmAdams County HospitalComment on above:Chol less than 200 mg/dl low riskChol 201-239 mg/dl borderline riskChol 240 mg/dl and greater high riskCholesterol in LDL Calc [Mass/Vol]Ordered By: Molly Elaine on 93-27-0717Zuvrnrpykre in LDL [Mass/Vol]56 mg/dL0-100Ad[facility] HospitalComment on above:LDL ATP III CLASSIFICATIONLDL less than 100 mg/dL OptimalLDL 100-129 mg/dL Near or above vdkdggrVRI454-358 mg/dL Borderline highLDL 160-189 mg/dL HighLDL greater than 189 mg/dL Very highCholesterol in VLDL Calc [Mass/Vol]Ordered By: Molly Elaine on 66-12-2251Osknugjnxxv in VLDL [Mass/Vol]38 mg/dLAdams County HospitalCreatinine [Mass/volume] in Serum or PlasmaOrdered By: Molly Elaine on 54-89-8143Ulcizwfdgm [Mass/Vol]0.66 mg/dL0.60-1.20[facility] HospitalErythrocyte distribution width Auto (RBC) [Ratio]Ordered By: Molly Elaine on 91-90-8185Irtehampxkb distribution width (RBC) [Ratio]13.1 %11.9-15.3 [facility] HospitalGlobulin Calc (S) [Mass/Vol]Ordered By: Molly Elaine on 22-61-2992Teiphipj (S) [Mass/Vol]2.6 g/dLAdams County HospitalGlucose [Mass/volume] in Serum or PlasmaOrdered By: Molly Elaine on 08-89-9401Kzoiuit [Mass/Vol]288 mg/iU32-616UhldmlquhAdams County Hospital Comment on above:ADA recommended reference rangeRandom Glucose Reference Range is dependent on time and content of last meal. Glucose of more than 200 mg/dL in a nonstressed, ambulatory subject supports the diagnosisof Diabetes Mellitus. HbA1c (Bld) [Mass fraction]on 69-59-3450Z3B ClipmarksNoSensiotec Other Hematocrit Auto (Bld) [Volume fraction]Ordered By: Molly Elaine on 29-58-0060Sywkrsdakt (Bld) [Volume fraction]40.2 %34.0-46.4 [facility] HospitalHemoglobin [Mass/volume] in BloodOrdered By: Molly Elaine on 69-74-8929Fuuztnjjin (Bld) [Mass/Vol]13.7 g/dL11.8-15.4 [facility] HospitalLeukocytes [#/volume] corrected for nucleated erythrocytes in Blood by Automated counOrdered By: Molly Elaine on 10-02-2022 WBC corrected for nucl RBC Auto (Bld) [#/Vol]8.2 10*3/uL3.8-11.6FOhioHealth Doctors Hospital Auto (RBC) [Entitic mass]Ordered By: Molly Elaine on 99-61-1534BFQ (RBC) [Entitic mass]31.2 pg24.7-34.3FBarnesville HospitalHC Auto (RBC) [Mass/Vol]Ordered By: Molly Elaine on 73-13-1554CVEE (RBC) [Mass/Vol]34.0 g/dL32.0-35.0[facility] HospitalMCV Auto (RBC) [Entitic vol]Ordered By: Molly Elaine on 39-91-1679YZT (RBC) [Entitic vol]91.8 rQ94-111XptkhlqutAdams County HospitalNo Panel InformationOrdered By: Molly Elaine on 24-89-0762Zczrwewbo GFR (CKD-EPI)> 60.0 mL/MinAdams County HospitalPharmacy Creatinine Clearance (ChemN/[facility] CenterPlatelet mean volume Auto (Bld) [Entitic vol]Ordered By: Molly Elaine on 28-43-9798Dxelpvsk mean volume (Bld) [Entitic vol]7.6 fL6.3-10.7 [facility] HospitalPlatelets Auto (Bld) [#/Vol]Ordered By: Molly Elaine on 00-32-9678Wqsarsxqk (Bld) [#/Vol]279 10*3/fS593-637JpeokewglAdams County HospitalPotassium [Moles/volume] in Serum or PlasmaOrdered By: Molly Elaine on 98-39-5136Fuoiszypf [Moles/Vol]4.3 mmol/L3.5-5.1FFairfield Medical CenterProtein [Mass/volume] in Serum or PlasmaOrdered By: Molly Elaine on 72-23-1157Jogxtev [Mass/Vol]6.5 g/dL6.4-8.9[facility] RBC Auto (Bld) [#/Vol]Ordered By: Molly Elaine on 63-81-8334OJI (d) [#/Vol] 4.38 10*6/uL3.60-5.00[facility] Campuserum or plasma albumin/globulin mass ratioOrdered By: Molly Elaine on 10-02-2022 Albumin/Globulin [Mass ratio]1.5 {ratio}[facility] Campuserum or plasma anion gap determinationOrdered By: Molly Elaine on 94-75-4207Rjulz gap [Moles/Vol]11.1 mmol/L6.0-15.0[facility] Campuserum or plasma high density lipoprotein (HDL) cholesterol measurementOrdered By: Molly Elaine on 66-98-1939Dwvlvoyrhie in HDL [Mass/Vol]43 mg/zY63-56JguryohobAdams County HospitalComment on above:HDL CHOL ATP-III CLASSIFICATION Cardiovascular RiskHDL > or equal to 60 mg/dL LOWHDL < 40 mg/dL HIGHSerum or plasma total cholesterol/high density lipoprotein (HDL) cholesterol mass rat Ordered By: Molly Elaine on 41-99-1890Qcbjtrnwarz.total/Cholesterol in HDL [Mass ratio]3.2 {ratio}<5.0[facility] South Campusodium [Moles/volume] in Serum or PlasmaOrdered By: Molly Elaine on 92-23-1273Adahmr [Moles/Vol]135 mmol/O444-196IwjhrcmpfAdams County HospitalTriglyceride [Mass/volume] in Serum or PlasmaOrdered By: Molly Elaine on 10-02-2022 Triglyceride [Mass/Vol]193 mg/dL0-149Ad[facility] HospitalComment on above:TRIG ATP III CLASSIFICATIONTRIG less than 150 mg/dL NormalTRIG 150-199 mg/dL Borderline highTRIG 200-500 mg/dL High TRIG greater than 500 mg/dL Very highStandard traceable to the Center for Disease Conrtrol and Prevention (CDC) test method.Urea nitrogen [Mass/volume] in Serum or PlasmaOrdered By: Molly Elaine on 61-90-3900Vqap nitrogen [Mass/Vol]7 mg/dL7-25[facility] HospitalActivated partial thromboplastin time (aPTT) in platelet poor plasma by coagulation aOrdered By: Earnestine Alonso on 40-50-2947jZMP Coag (PPP) [Time]28.6 s25.1-36.5FFairfield Medical CenterBasophils Auto (Bld) [#/Vol]Ordered By: Earnestine Alonso on 67-25-0005Pgmivopns (Bld) [#/Vol]0.1 10*3/uL0.0-0.2FFairfield Medical CenterBasophils/100 WBC Auto (Bld) Ordered By: Earnestine Alonso on 54-08-7682Juxlsxclq/100 WBC (Bld)1.4 %.[facility] HospitalCreatine kinase [Enzymatic activity/volume] in Serum or PlasmaOrdered By: Earnestine Alonso on 19-80-3686FL [Catalytic activity/Vol]45 U/L 22-269Ad[facility] HospitalCreatinine and Glomerular filtration rate.predicted panel (S/P/Bld)Ordered By: Earnestine Alonso on 04-04-2022 Creatinine [Mass/Vol]0.54 mg/dL0.44-1.03[facility] Eosinophils Auto (Bld) [#/Vol]Ordered By: Earnestine Alonso on 04-04-2022 Eosinophils (Bld) [#/Vol]0.2 10*3/uL0.0-0.45[facility] Eosinophils/100 WBC Auto (Bld)Ordered By: Earnestine Alonso on 04-04-2022 Eosinophils/100 WBC (Bld)1.6 %.[facility] HospitalErythrocyte distribution width Auto (RBC) [Ratio]Ordered By: Earnestine Alonso on 04-04-2022 Erythrocyte distribution width (RBC) [Ratio]13.6 %11.9-15.3FFairfield Medical CenterEstimated glomerular filtration rate (GFR) non- Ordered By: Earnestine Alonso on 02-65-5925ULH/1.73 sq M.predicted among non- blacks MDRD (S/P/Bld) [Vol rate/Area]> 60 mL/MinAdams County HospitalHematocrit Auto (Bld) [Volume fraction]Ordered By: Earnestine Alonso on 91-99-4281Wdzpnhublv (Bld) [Volume fraction]40.6 %34.0-46.4FFairfield Medical CenterHemoglobin [Mass/volume] in BloodOrdered By: Earnestine Alonso on 27-75-5986Jxlururesu (Bld) [Mass/Vol]14.0 g/dL11.8-15.4FFairfield Medical CenterLaboratory - Chemistry and Chemistry - challengeOrdered By: Earnestine Alonso on 62-18-2233Eqlrybbykdb peptide B (Bld) [Mass/Vol]109.0 pg/mL 5-100[facility] HospitalLaboratory - CoagulationOrdered By: Earnestine Alonso on 84-39-3202UE Coag (PPP) [Time]12.0 s9.0-12.9[facility] HospitalLaboratory - Hematology and Cell countsOrdered By: Earnestine Alonso on 93-36-5513Khyytqolq RBC/100 WBC (Bld) [Ratio]0.0 %0-0.5 [facility] HospitalLeukocytes [#/volume] in Blood by Automated countOrdered By: Earnestine Alonso on 10-60-1376MYT (Bld) [#/Vol]9.8 10*3/uL 4.5-11.0[facility] HospitalLymphocytes Auto (Bld) [#/Vol]Ordered By: Earnestine Alonso on 85-50-4143Fffpawvduhh (Bld) [#/Vol]2.2 10*3/uL1.00-4.8 [facility] HospitalLymphocytes/100 WBC Auto (Bld)Ordered By: Earnestine Alonso on 32-96-9839Tbiqkkrylns/100 WBC (Bld)22.5 %.[facility] Auto (RBC) [Entitic mass]Ordered By: Earnestine Alonso on 92-77-3024IXQ (RBC) [Entitic mass]30.7 pg24.7-34.3FFairfield Medical CenterMCHC Auto (RBC) [Mass/Vol]Ordered By: Earnestine Alonso on 70-83-1185MDBI (RBC) [Mass/Vol]34.3 g/dL32.0-35.0[facility] HospitalMCV Auto (RBC) [Entitic vol]Ordered By: Earnestine Alonso on 38-33-0051EGO (RBC) [Entitic vol]89.5 cS96-090OklaxjzivAdams County HospitalMonocytes Auto (Bld) [#/Vol] Ordered By: Earnestine Alonso on 50-37-0565Ydqcarknc (Bld) [#/Vol]0.8 10*3/uL 0.0-0.8Ad[facility] HospitalMonocytes/100 WBC Auto (Bld)Ordered By: Earnestine Alonso on 91-08-9741Gpriukzsu/100 WBC (Bld)7.9 %.[facility] HospitalNeutrophils Auto (Bld) [#/Vol]Ordered By: Earnestine Alonso on 02-68-3005Bknhgogqual (Bld) [#/Vol]6.5 10*3/uL1.8-7.7FFairfield Medical CenterNeutrophils/100 WBC Auto (Bld)Ordered By: Earnestine Alonso on 04-04-2022 Neutrophils/100 WBC (Bld)66.6 %.[facility] HospitalNo Panel InformationOrdered By: Earnestine Alonso on 73-15-8261Idjlxirkr GFR ()> 60 mL/MinAdams County HospitalComment on above:GFR estimated reference range: According to KDOQI guidelines, <60 ml/min/1.73m2 is sufficient todiagnose a patient with chronic kidney disease.Pharmacy Creatinine Clearance (Vqzv489.90Ad[facility] HospitalPlatelet mean volume Auto (Bld) [Entitic vol]Ordered By: Earnestine Alonso on 75-86-5926Xopbyxkv mean volume (Bld) [Entitic vol]7.7 fL6.3-10.7FFairfield Medical CenterPlatelet poor plasma international normalized ratio (INR) by coagulation assay (relatOrdered By: Earnestine Alonso on 78-35-7330RPK Coag (PPP) [Relative time]1.1 {INR} [facility] HospitalComment on above:INR Therapeutic Range A) Pre- and Peroperative OAT started two weeks before surgery. NOT HIP SURGERY: 1.5 - 2.5 HIP SURGERY: 2 - 3B) Primary and secondary prevention of venous THROMBOSIS: 2 - 3C) Active venous thrombosis, pulmonary embolismand prevention of recurrent venous thrombosis: 2 - 3D) Prevention of arterial thromboembolismincluding patients with mechanical heart valves: 3 - 4.5Platelets Auto (Bld) [#/Vol] Ordered By: Earnestine Alonso on 67-18-6988Ummhetbke (Bld) [#/Vol]319 10*3/uL 150-450Ad[facility] HospitalRBC Auto (Bld) [#/Vol]Ordered By: Earnestine Alonso on 85-11-6470PFD (Bld) [#/Vol]4.54 10*6/uL3.60-5.00[facility] Campuserum or plasma anion gap determinationOrdered By: Earnestine Alonso on 73-68-7262Dfbiu gap [Moles/Vol]11.5 mmol/L6.0-15.0[facility] Campuserum or plasma calcium measurement (mass/volume)Ordered By: Earnestine Alonso on 24-20-9581Cawymfd [Mass/Vol]8.9 mg/dL8.2-10.2FCleveland Clinic Children's Hospital for Rehabilitationerum or plasma chloride measurement (moles/volume) Ordered By: Earnestine Alonso on 49-66-0619Rovsbzyd [Moles/Vol]106 mmol/L95-114 [facility] Campuserum or plasma creatine kinase MB (CKMB)/total creatine kinase (CK) ratio by calculaOrdered By: Earnestine Alonso on 04-04-2022 CK.MB Calc [Catalytic fraction]2.2 %0.00-2.50[facility] Serum or plasma creatine kinase MB measurement (mass/volume)Ordered By: Earnestine Alonso on 13-28-7961IN.MB [Mass/Vol]1.0 ng/mL0.6-6.3FCleveland Clinic Children's Hospital for Rehabilitationerum or plasma glucose measurement (mass/volume)Ordered By: Earnestine Alonso on 16-52-3184Wdcnlud [Mass/Vol]128 mg/wS30-748TkfsajnedAdams County HospitalComment on above:ADA recommended reference rangeRandom Glucose Reference Range is dependent on time and content of last meal. Glucose of more than 200 mg/dL in a nonstressed, ambulatory subject supports the diagnosisof Diabetes Mellitus.Serum or plasma potassium measurement (moles/volume)Ordered By: Earnestine Alonso on 09-35-6858Texfwwevf [Moles/Vol]4.0 mmol/L3.5-5.1FCleveland Clinic Children's Hospital for Rehabilitationerum or plasma sodium measurement (moles/volume)Ordered By: Earnestine Alonso on 64-10-1144Ecxzzb [Moles/Vol]136 mmol/R513-957RfbpacopqFirelands Regional Medical Center South Campuserum or plasma total carbon dioxide measurement (moles/volume)Ordered By: Earnestine Barrientosmeалександр on 13-11-2966TU9 [Moles/Vol]22.5 mmol/L22.0-30.0[facility] Campuserum or plasma urea nitrogen measurement (mass/volume)Ordered By: Earnestine Alonso on 85-80-5075Urob nitrogen [Mass/Vol]6 mg/dL9-23Ad[facility] HospitalTroponin I.cardiac [Mass/volume] in Serum or Plasma by High sensitivity methodOrdered By: Earnestine Alonso on 83-73-8648Lijggxlx I.cardiac High sensitivity method [Mass/Vol]< 3 pg/mL0-15[facility] HospitalOffice Visit (Cardiology)on 01-31-2022 Follow-up visitDiagnoses/Problems Assessed NSTEMI, initial episode of care (410.71) (I21.4) Diabetes (250.00) (E11.9) 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) Current every day smoker (305.1) (F17.200) 1 PPD Morbid obesity with BMI of 40.0-44.9, adult (278.01,V85.41) (E66.01,Z68.41) Orders Morbid obesity with BMI of 40.0-44.9, adult Healthy Weight Tips; Status:Complete - Retrospective Authorization; Done: [id number] Some eating tips that can help you lose weight.; Status:Complete - Retrospective Authorization; Done: [id number] NSTEMI, initial episode of care Cardiac Rehab Referral Evaluation and Treatment Evaluate AND Treat Status: Hold For - Scheduling,Retrospective Authorization Requested for: [id number] Agreement : I agree to have my [...] we can help. You may also call 5-286-SLUC-NOW for free resources and assistance.; Status:Complete - Retrospective Authorization; Done: [id number] Tobacco Use Screening; Status:Complete; Done: [id number] Patient Instructions Please bring all medicines, vitamins, [...] Complaint NATIVIDAD BONNER is being seen for [facility] D/C 01/22 Cath. [...] as potential etiologies for her non-ST elevation [place] event including syndrome X. Recommendations, continued current therapies, she can follow-up as needed, refer to cardiac rehab for ongoing post ACS rehabilitation, exercise, dietary discretion, weight loss counseling and smokingcessation counseling performed. Current Meds Medication NameInstruction Albuterol Sulfate HFA 108 (90 Base) MCG/ACT Inhalation Aerosol SolutionUSE 2 PUFFS EVERY 6 HOURS ASDIRECTED. Aspirin EC 81 MG Oral Tablet Delayed [...] 31Jan2022 10:50AM Heart Ra (more content not included)...NormalUH TouchworksTobacco Screening.on 48-40-5257Uhezpvo use status CPHSa) Yes-[facility] [address] DO Work Phone: Tobacco Screening.Yes-[facility]-[place] [address] DO Work Phone: Activated partial thromboplastin time (aPTT) in platelet poor plasma by coagulation aOrdered By: Jose Lan on 56-83-8716hGVW Coag (PPP) [Time]61.9 s25.1-36.5FFairfield Medical CenterCreatinine and Glomerular filtration rate.predicted panel (S/P/Bld)Ordered By: Jose Lan on 46-91-1549Sbjjnsexzf [Mass/Vol]0.72 mg/dL0.44-1.03[facility] HospitalEstimated glomerular filtration rate (GFR) non- AmericanOrdered By: Jose Lan on 58-11-9819JBW/1.73 sq M.predicted among non-blacks MDRD (S/P/Bld) [Vol rate/Area]> 60 mL/MinAdams County HospitalNo Panel InformationOrdered By: Jose Lan on 17-99-5765Urqdhtmau GFR ()> 60 mL/MinAdams County HospitalComment on above:GFR estimated reference range: According to KDOQI guidelines, <60 ml/min/1.73m2 is sufficient todiagnose a patient with chronic kidney disease.Pharmacy Creatinine Clearance (Jmiq813.72[facility] Campuserum or plasma calcium measurement (mass/volume)Ordered By: Jose Lan on 05-85-7828Ujhlgel [Mass/Vol]8.8 mg/dL8.2-10.2FCleveland Clinic Children's Hospital for Rehabilitationerum or plasma chloride measurement (moles/volume)Ordered By: Jose Lan on 01-22-2022 Chloride [Moles/Vol]103 mmol/N02-478GpsyjfzlzFirelands Regional Medical Center South Campuserum or plasma glucose measurement (mass/volume)Ordered By: Jose Lan on 01-22-2022 Glucose [Mass/Vol]171 mg/vO66-098IjnjvfsgpAdams County HospitalComment on above:ADA recommended reference range Random Glucose Reference Range is dependent on time and content of last meal. Glucose of more than 200 mg/dL in a nonstressed, ambulatory subject supports the diagnosis of Diabetes Mellitus.ADA recommended reference rangeRandom Glucose Reference Range is dependent on time and content of last meal. Glucose of more than 200 mg/dL in a nonstressed, ambulatory subject supports the diagnosisof Diabetes Mellitus.Serum or plasma potassium measurement (moles/volume)Ordered By: Jose Lan on 18-13-8622Szvkgqhsw [Moles/Vol]3.7 mmol/L3.5-5.1FCleveland Clinic Children's Hospital for Rehabilitationerum or plasma sodium measurement (moles/volume)Ordered By: Jose Lan on 07-89-1907Xnkrlu [Moles/Vol]134 mmol/M960-408KtyidzlgkFirelands Regional Medical Center South Campuserum or plasma total carbon dioxide measurement (moles/volume)Ordered By: Jose Lan on 63-81-2995IE8 [Moles/Vol]22.5 mmol/L 22.0-30.0[facility] Campuserum or plasma urea nitrogen measurement (mass/volume)Ordered By: Jose Lan on 42-49-1900Sxwm nitrogen [Mass/Vol]10 mg/dL9-23[facility] HospitalBasophils Auto (Bld) [#/Vol]Ordered By: Jose Lan on 97-89-0166Fcdmwdzsy (Bld) [#/Vol]0.1 10*3/uL 0.0-0.2FFairfield Medical CenterBasophils/100 WBC Auto (Bld)Ordered By: Jose Lan on 65-79-4241Bzfitcjso/100 WBC (Bld)1.1 %.[facility] HospitalBlood hemoglobin measurement (mass/volume)Ordered By: Jose Lan on 96-79-7607Daccdeftuo (Bld) [Mass/Vol]14.3 g/dL11.8-15.4FFairfield Medical CenterBlood leukocytes automated count (number/volume)Ordered By: Jose Lan on 78-76-5571ZOU (Bld) [#/Vol]10.3 10*3/uL4.5-11.0[facility] HospitalEosinophils Auto (Bld) [#/Vol]Ordered By: Jose Lan on 04-64-2674Xbvpzoxljom (Bld) [#/Vol]0.3 10*3/uL0.0-0.45[facility] HospitalEosinophils/100 WBC Auto (Bld)Ordered By: Jose Lan on 01-21-2022 Eosinophils/100 WBC (Bld)2.9 %.[facility] HospitalErythrocyte distribution width Auto (RBC) [Ratio]Ordered By: Jose Lan on 01-21-2022 Erythrocyte distribution width (RBC) [Ratio]12.5 %11.9-15.3FFairfield Medical CenterHematocrit Auto (Bld) [Volume fraction]Ordered By: Jose Lan on 78-14-0810Oidxjexgdy (Bld) [Volume fraction]41.3 %34.0-46.4FFairfield Medical CenterLaboratory - CoagulationOrdered By: Jose Lan on 35-08-9076UE Coag (PPP) [Time]12.8 s9.0-12.9[facility] HospitalLaboratory - Hematology and Cell countsOrdered By: Jose Lan on 52-86-6472Okilemody RBC/100 WBC (Bld) [Ratio]0.0 %0-0.5FFairfield Medical CenterLymphocytes Auto (Bld) [#/Vol]Ordered By: Jose Lan on 19-52-5405Qrisktjjfbd (Bld) [#/Vol]3.3 10*3/uL1.00-4.8[facility] HospitalLymphocytes/100 WBC Auto (Bld)Ordered By: Jose Lan on 18-71-0300Pqjfalrsxxs/100 WBC (Bld)31.6 %. [facility] HospitalMC Auto (RBC) [Entitic mass]Ordered By: Jose Lan on 33-04-3380PZQ (RBC) [Entitic mass]30.9 pg24.7-34.3FFairfield Medical CenterMCHC Auto (RBC) [Mass/Vol]Ordered By: Jose Lan on 01-21-2022 MCHC (RBC) [Mass/Vol]34.5 g/dL32.0-35.0[facility] HospitalMCV Auto (RBC) [Entitic vol]Ordered By: Jose Lan on 33-70-1644FER (RBC) [Entitic vol]89.4 lW00-712OemrfgiroAdams County HospitalMonocytes Auto (Bld) [#/Vol] Ordered By: Jose Lan on 13-40-5360Cnawtrndy (Bld) [#/Vol]0.5 10*3/uL0.0-0.8 [facility] HospitalMonocytes/100 WBC Auto (Bld)Ordered By: Jose Lan on 76-74-7932Pxakymrjb/100 WBC (Bld)4.6 %.[facility] HospitalNeutrophils Auto (Bld) [#/Vol]Ordered By: Jose Lan on 01-21-2022 Neutrophils (Bld) [#/Vol]6.2 10*3/uL1.8-7.7FFairfield Medical Center Neutrophils/100 WBC Auto (Bld)Ordered By: Jose Lan on 01-21-2022 Neutrophils/100 WBC (Bld)59.8 %.[facility] HospitalPlatelet mean volume Auto (Bld) [Entitic vol]Ordered By: Jose Lan on 93-39-2684Hlnwsdgw mean volume (Bld) [Entitic vol]7.7 fL6.3-10.7FFairfield Medical Center Platelet poor plasma international normalized ratio (INR) by coagulation assay (relatOrdered By: Jose Lan on 60-23-4506OMV Coag (PPP) [Relative time]1.1 {INR}[facility] HospitalComment on above:INR Therapeutic Range A) Pre- and Peroperative OAT started two weeks before surgery. NOT HIP SURGERY: 1.5 - 2.5 HIP SURGERY: 2 - 3 B) Primary and secondary prevention of venous THROMBOSIS: 2 - 3 C) Active venous thrombosis, pulmonary embolism and prevention of recurrent venous thrombosis: 2 - 3 D) Prevention of arterial thromboembolism including patients with mechanical heart valves: 3 - 4.5INR Therapeutic Range A) Pre- and Peroperative OAT started two weeks before surgery. NOT HIP SURGERY: 1.5 - 2.5 HIP SURGERY: 2 - 3B) Primary and secondary prevention of venous THROMBOSIS: 2 - 3C) Active venous thrombosis, pulmonary embolismand prevention of recurrent venous thrombosis: 2 - 3D) Prevention of arterial thromboembolismincluding patients with mechanical heart valves: 3 - 4.5Platelets Auto (Bld) [#/Vol]Ordered By: Jose Lan on 16-71-3646Iianvzvfj (Bld) [#/Vol] 278 10*3/sO853-327DlbdktfyhAdams County HospitalRBC Auto (Bld) [#/Vol]Ordered By: Jose Lan on 51-99-2484ANW (Bld) [#/Vol]4.62 10*6/uL3.60-5.00[facility] HospitalAmphetamine Screen Ql (U)Ordered By: Jose Lan on 12-01-1396Ojvpvmcwevvg Ql (U)NegativeNegUniversity Hospitals Parma Medical Center Automated erythrocytes count in urine sediment (number/area)Ordered By: Jose Lan on 72-15-3512PHP Auto (Urine sed) [#/Area]3-4 [HPF]0-4FFairfield Medical CenterAutomated leukocytes count in urine sediment (number/area)Ordered By: Jose Lan on 95-78-3557YLZ Auto (Urine sed) [#/Area]5-9 [HPF]0-4FFairfield Medical CenterBarbiturates [Presence] in UrineOrdered By: oJse Lan on 22-35-0911Yrvybzoetpnu Ql (U)NegativeNegUniversity Hospitals Parma Medical CenterBenzodiazepines [Presence] in UrineOrdered By: Jose Lan on 01-20-2022 Benzodiazepines Ql (U)PositiveNegUniversity Hospitals Parma Medical CenterBilirubin Test strip Ql (U)Ordered By: Jose Lan on 25-62-5283Hipymbbrr Ql (U)Negative NegativeAdams County HospitalCARDIAC LUPE 3-6on 60-34-4796LJ [Catalytic activity/Vol]68 U/KVsinqo00-675Rax [facility] HospitalComment on above: Performed By: #### CMREP #### [facility] [address] [address] [address] Norma Brower.MB [Mass/Vol]1.18 ng/mLNormal<=3.60[facility] Comment on above:Performed By: #### CMREP #### [facility] [address] [address] [address] Norma SotoHSTROP125.5 pg/mLCritically high4.0-51.3TOur Lady of Mercy Hospital Comment on above:Result Comment: CUT-OFF POINTS HAVE BEEN ESTABLISHED BASED ON THE FOURTH UNIVERSAL DEFINITIONS OF MYOCARDIAL INFARCTION. THE UPPER REFERENCE LIMIT (URL) OF TROPONIN, DEFINED THE 99TH PERCENTILE OF cTnI DISTRIBUTION IN A REFERENCE POPULATION, HAS BEEN CONFIRMED THE DECISION THRESHOLD FOR [place] DIAGNOSIS.Performed By: #### CMREP #### [facility] [address] [address] [address] Norma Noland-19 Positive/NegativeOrdered By: Jose Lan on 01-20-2022 SARS-CoV-2 (COVID-19) N gene HARJINDER+probe Ql (Resp)NegativeNegativeAdams County HospitalComment on above:Testing for SARS-CoV-2 by RT-PCR This test was developed and its performance characteristics determined by [employer] ([employer]) and validated at the [facility]. This test has not been FDA [...] of time the declaration that circumstances exist ju stifying the authorization of the emergency use of in vitro diagnostic tests for detection of SARS-CoV-2 virus and/or diagnosis of COVID-19 infection under section 564(b)(1) of the Act, 21 U.S.C. 360bbb-3(b)(1), unless the authorization is terminated or revoked sooner.Testing for SARS-CoV-2 by RT-PCRThis test was developed and its performance characteristics determined by [employer] ([employer]) and validated at the [facility]. This test has not been FDA [...] unless the authorization is terminated or revoked sooner.COVID-19 SOFIAOrdered By: Jose Lan on 01-20-2022 SARS-CoV+SARS-CoV-2 (COVID-19) Ag IA.rapid Ql (Resp)NegativeNegUniversity Hospitals Parma Medical CenterComment on above:This is a duplicate Shivani SARS Antigen (KIERSTEN) result to be used for statistical tracking purpose only.Cannabinoids [Presence] in Urine by Screen methodOrdered By: Jose Lan on 01-20-2022 Cannabinoids Screen Ql (U)PositiveNegUniversity Hospitals Parma Medical Center Comment on above:These are unconfirmed results and should not be used for legal purposes. Drug Cut-Off Concentration: AMPH 1000 ng/mL LAMAR 200 ng/mL DEVIN 200 ng/mL COCM 300 ng/mL OP 300 ng/mL PCP 25 ng/mL THC 20 ng/mLThese are unconfirmed results and should not be used for legal purposes. Drug Cut-Off Concentration: AMPH 1000 ng/mL LAMAR 200 ng/mL DEVIN 200 ng/mL COCM 300 ng/mL OP 300 ng/mL PCP 25 ng/mL THC 20 ng/mLCholesterol [Mass/volume] in Serum or PlasmaOrdered By: Jose Lan on 01-20-2022 Cholesterol [Mass/Vol]196 mg/mH674-680MgcvogspcAdams County HospitalComment on above:Chol less than 200 mg/dl low risk Chol 201-239 mg/dl borderline risk Chol 240 mg/dl and greater high riskChol less than 200 mg/dl low riskChol 201- 239 mg/dl borderline riskChol 240 mg/dl and greater high riskCholesterol in LDL Calc [Mass/Vol]Ordered By: Jose Lan on 01-99-1713Loinilpyapm in LDL [Mass/Vol]111 mg/dL0-100Ad[facility] HospitalComment on above:LDL ATP III CLASSIFICATION LDL less than 100 mg/dL Optimal LDL 100-129 mg/dL Near or above optimal LDL 130-159 mg/dL Borderline high LDL 160-189 mg/dL High LDL greater than 189 mg/dL Very highLDL ATP III CLASSIFICATIONLDL less than 100 mg/dL OptimalLDL 100-129 mg/dL Near or above rwihwkaKOR853-765 mg/dL Borderline highLDL 160-189 mg/dL HighLDL greater than 189 mg/dL Very highCholesterol in VLDL Calc [Mass/Vol]Ordered By: Jose Lan on 22-24-1684Urmyoxwvvok in VLDL [Mass/Vol]50 mg/dLAdams County HospitalColor Auto (U)Ordered By: Jose Lan on 76-05-6153Rknhx (U)YellowYellowAdams County Hospital Glucose mean value [Mass/volume] in Blood Estimated from glycated hemoglobin Ordered By: Jose Lan on 31-63-6892Zksvlmt glucose Estimated from glycated hemoglobin (Bld) [Mass/Vol]163 mg/dLAdams County HospitalHemoglobin A1c percentageOrdered By: Jose Lan on 71-17-2020SkE4m (Bld) [Mass fraction] 7.3 %4.3-5.6FFairfield Medical CenterComment on above:Increased risk for diabetes: 5.7 - 6.4 diabetes: >6.4 glycemic control for adults with diabetes: <7.0Increased risk for diabetes: 5.7 - 6.4diabetes: >6.4glycemic control for adults with diabetes: <7.0Ketones Auto test strip (U) [Mass/Vol]Ordered By: Jose aLn on 90-39-5680Qhqmmut (U) [Mass/Vol]NegativeNegativeAdams County HospitalLaboratory - Chemistry and Chemistry - challengeOrdered By: Jose Lan on 01-20-2022 Magnesium [Mass/Vol]1.7 mg/dL1.6-2.6FFairfield Medical CenterLaboratory - Drug toxicologyOrdered By: Jose Lan on 99-91-4334Rojygnn Ql (U)Negative NegativeAdams County HospitalLaboratory - Microbiology and Antimicrobial susceptibilityOrdered By: Jose Lan on 65-00-2097MIPF-CoV-2 (COVID-19) RNA HARJINDER+probe Ql (Unsp spec)N/AFFairfield Medical Center Laboratory - UrinalysisOrdered By: Jose Lna on 70-61-0047Zaorfdu casts LM Ql (Urine sed)0-8 [LPF]0-8Ad[facility] HospitalNitrite Test strip Ql (U)Ordered By: Jose Lan on 22-66-9082Owxonlh Ql (U)NegativeNegUniversity Hospitals Parma Medical CenterNo Panel InformationOrdered By: Jose Lan on 52-31-4749TQBW Antigen (LFIA)[facility] HospitalPhencyclidine Screen Ql (U)Ordered By: Jose Lan on 97-65-7727Zgsszqdlymgzs Ql (U)Negative NegativeAdams County HospitalProtein Auto test strip (U) [Mass/Vol] Ordered By: Jose Lan on 14-62-3658Himpnue (U) [Mass/Vol]NegativeNegative [facility] South Campuserum or plasma high density lipoprotein (HDL) cholesterol measurementOrdered By: Jose Lan on 05-09-5952Etnhwtdzade in HDL [Mass/Vol]35 mg/kV41-81TyqatdaouAdams County HospitalComment on above:HDL CHOL ATP-III CLASSIFICATION Cardiovascular Risk HDL > or equal to 60 mg/dL LOW HDL < 40 mg/dL HIGHHDL CHOL ATP-III CLASSIFICATION Cardiovascular RiskHDL > or equal to 60 mg/dL LOWHDL < 40 mg/dL HIGHSerum or plasma total cholesterol/high density lipoprotein (HDL) cholesterol mass ratOrdered By: Jose Lan on 51-60-6914Udfllhykqky.total/Cholesterol in HDL [Mass ratio]5.6 {ratio}<5.0 [facility] South Campuspecific gravity Auto test strip (U) [Rel density]Ordered By: Jose Lan on 45-00-4054Kflottfj gravity (U) [Rel density] 1.0231.001-1.030[facility] Campusquamous epithelial cells detection in urine sediment by light microscopyOrdered By: Jose Lan on 58-47-4836Ftqtoensve cells.squamous LM Ql (Urine sed)10-19 [HPF]0-2FFairfield Medical CenterTriglyceride [Mass/volume] in Serum or PlasmaOrdered By: Jose Lan on 30-90-1955Hbtfcmdksjwk [Mass/Vol]252 mg/tW38-695MxzipedvqAdams County HospitalComment on above:TRIG ATP III CLASSIFICATION TRIG less than 150 mg/dL Normal TRIG 150-199 mg/dL Borderline high TRIG 200-500 mg/dL High TRIG greater than 500 mg/dL Very high Standard traceable to the Center for Disease Conrtrol and Prevention (CDC) test method.TRIG ATP III CLASSIFICATIONTRIG less than 150 mg/dL NormalTRIG 150-199 mg/dL Borderline highTRIG 200-500 mg/dL High TRIG greater than 500 mg/dL Very highStandard traceable to the Center for Disease Conrtrol and Prevention (CDC) test method.Troponin I.cardiac [Mass/volume] in Serum or Plasma by High sensitivity methodOrdered By: Wes Nunes on 32-43-5226Bysbcdbt I.cardiac High sensitivity method [Mass/Vol]1576 pg/mL0-15[facility] Comment on above:Results called at 1405 on 01/20/22 Results called at 1409 on 01/20/22Results called at 1405 on 01/20/22 Results calledat 1409 on 01/20/22Urine bacteria detection by automated methodOrdered By: Jose Lan on 98-39-9191Axkmmqvc Auto Ql (U)2+None SeenAdams County HospitalUrine clarity by refractometry automatedOrdered By: Jose Lan on 62-38-5895Bngwpzo Refractometry automated (U)CloudyClearFFairfield Medical CenterUrine cocaine detectionOrdered By: Jose Lan on 55-77-8474Gijxrku Ql (U)Negative NegativeAdams County HospitalUrine glucose measurement by automated test strip (mass/volume)Ordered By: Jose Lan on 98-46-6110Rxbsgii Auto test strip (U) [Mass/Vol]Normal mg/dLNormCentervilleUrine hemoglobin detection by automated test stripOrdered By: Jose Lan on 01-69-0123Tbezqckhjm Auto test strip Ql (U)NegativeNegativeAdams County HospitalUrine leukocyte esterase detection by automated test stripOrdered By: Jose Lan on 67-17-1160Yaprgnutj esterase Auto test strip Ql (U)Negative NegativeAdams County HospitalUrobilinogen Auto test strip (U) [Mass/Vol]Ordered By: Jose Lan on 88-32-1810Kmrwamabveof (U) [Mass/Vol] Normal mg/dLNoFayette County Memorial HospitalXR CHEST 1 Von 65-56-4839SH CHEST 1 VEXAMINATION: XR CHEST 1 V HISTORY: CHEST PAIN, UNSPECIFIED COMPARISON: [...] Electronically authenticated by: RAOUL MOTT Date: 2022-01-19 22:52[facility] HospitalpH Auto test strip (U)Ordered By: Jose Lan on 23-75-0827yP (U)5.5 [pH]5.0-9.0Ad[facility] HospitalCARDIAC LUPE ADMITon 91-64-6244KO [Catalytic activity/Vol]73 U/YTjrcjc83-291Efh [facility] Comment on above:Performed By: #### BMP, CMADM ####[facility] [address] [address]Dr. Norma Brower.MB [Mass/Vol]ng/mLNormal<=3.60The [facility] HospitalComment on above:Performed By: #### BMP, CMADM ####[facility] [address] [address]DrRl SotoHSTROP8.1 pg/mLNormal4.0-51.3TOur Lady of Mercy [facility] Comment on above:Result Comment: CUT-OFF POINTS HAVE BEEN ESTABLISHED BASED ON THE FOURTH UNIVERSAL DEFINITIONS OF MYOCARDIAL INFARCTION. THE UPPER REFERENCE LIMIT (URL) OF TROPONIN, DEFINED THE 99TH PERCENTILE OF cTnI DISTRIBUTION IN A REFERENCE POPULATION, HAS BEEN CONFIRMED THE DECISION THRESHOLD FOR [place] DIAGNOSIS.Performed By: #### BMP, CMADM ####[facility] [address] [address]DrRl SotoMYO39 ng/mL Normal9-82[facility] HospitalComment on above:Performed By: #### BMP, CMADM ####[facility] [address] [address]Dr. Norma SmithC AUTO DIFFon 64-22-8231GNTM #0.1 103/ulNormal0.0-0.1[facility] HospitalComment on above:Performed By: #### CBC #### [facility] [address] [address] [address] Norma Fatimasophils/100 WBC (Bld)0.5 %Normal0.2-2.0[facility] Comment on above:Performed By: #### CBC #### [facility] [address] [address] [address] Norma Esposito #0.1 103/ulNormal0.0-0.7The Genesis HospitalComment on above: Performed By: #### CBC #### [facility] [address] [address] [address] Norma Loweryosinophils/100 WBC (Bld)0.7 %Critically low0.9-7.0The Genesis HospitalComment on above:Performed By: #### CBC #### [facility] [address] [address] [address] Norma Loweryrythrocyte distribution width (RBC) [Ratio]11.7 %Nhzggn09.0-15.0 The Genesis HospitalComment on above:Performed By: #### CBC #### [facility] [address] [place] [address] Dr. Norma SotoHematocrit (Bld) [Volume fraction]45.5 %Syeyah90.0-48.0The Genesis HospitalComment on above:Performed By: #### CBC #### [facility] [address] [place] [address] Dr. Norma SotoHemoglobin (Bld) [Mass/Vol]16.3 g/dLCritically high12.0-16.0The [facility] HospitalComment on above:Performed By: #### CBC #### [facility] [address] [place] [address] Dr. Norma Cadena #0.11 10e3/ulCritically high0.00-0.03The [facility] Comment on above:Performed By: #### CBC #### [facility] [address] [place] [address] Dr. Norma Cadena %0.6 %Critically high0.0-0.5The [facility] HospitalComment on above:Performed By: #### CBC #### [facility] [address] [place] [address] Dr. Norma Dalal #2.0 103/ulNormal1.2-3.8The [facility] HospitalComment on above:Performed By: #### CBC #### [facility] [address] [place] [address] Dr. Norma Skeltonhocytes/100 WBC (Bld)11.3 %Critically low20.5-60.0The [facility] HospitalComment on above:Performed By: #### CBC #### [facility] [address] [place] [address] Dr. Norma QueenUAL DIFF REQNONormalThe Genesis HospitalComment on above: Performed By: #### CBC #### [facility] [address] [place] [address] Dr. Norma Martinez (RBC) [Entitic mass]31.3 paHuntct93.7-34.0The [facility] HospitalComment on above:Performed By: #### CBC #### [facility] [address] [place] [address] Dr. Norma Biswas (RBC) [Mass/Vol]35.8 g/dLCritically high29.9-35.2The [facility] HospitalComment on above:Performed By: #### CBC #### [facility] [address] [place] [address] Dr. Norma Biswas (RBC) [Entitic vol]87.3 xSMuemea69.0-99.0The [facility] HospitalComment on above:Performed By: #### CBC #### [facility] [address] [place] [address] Dr. Norma Mcghee #0.7 103/ulNormal0.3-0.8The [facility] HospitalComment on above:Performed By: #### CBC #### [facility] [address] [place] [address] Dr. Norma Lucasocytes/100 WBC (Bld)4.1 %Normal1.7-12.0[facility] Comment on above:Performed By: #### CBC #### [facility] [address] [place] [address] Dr. Norma Levin #14.6 103/ulCritically high1.4-6.5[facility] Comment on above:Performed By: #### CBC #### [facility] [address] [place] [address] Dr. Norma Espinalutrophils/100 WBC (Bld)82.8 %Critically high43.0-75.0The [facility] HospitalComment on above:Performed By: #### CBC #### [facility] [address] [place] [address] Dr. Norma Mohan mean volume (Bld) [Entitic vol]9.0 fLCritically low 9.5-13.5The [facility] HospitalComment on above:Performed By: #### CBC #### [facility] [address] [address] [address] Norma SotoPLT362 103/imBrdfhf049-561Lyq [facility] on above: Performed By: #### CBC #### [facility] [address] [address] [address] Norma SotoRBC5.21 106/ulNormal4.20-5.40The [facility] on above:Performed By: #### CBC #### [facility] [address] [address] [address] Norma SotoWBC17.6 103/ulCritically high4.0-11.0The [facility] on above:Performed By: #### CBC #### [facility] [address] [place] [address] Dr. Norma Montana-DIMERon 64-87-2956M-DIMER0.45 mg/L FEUNormal<=0.59The [facility] on above:Performed By: #### DDIM #### [facility] [address] [place] [address] Dr. Norma Dennis [facility]ALSE[facility] on above:Result Comment: Increases in D-Dimer concentration observed with thromboembolic events [...] stress, and generalized hospitalization. Performed By: #### DDIM #### [facility] [address] [address] [address] Norma SotoPROF CHEM 8 (BAS METB)on 64-32-2420Mefrd gap [Moles/Vol]18.2 mmol/LNormalSelect Medical Special[facility] on above:Performed By: #### BMP, CMADM ####[facility] [address] [address]Dr. Yilan ChangCalcium [Mass/Vol]9.5 mg/dLNormal8.5-10.1The [facility] HospitalComment on above:Performed By: #### NICO, CMADM ####[facility] Ephdgfaqro[address] [place], [place] [address]Dr. Yilan ChangChloride [Moles/Vol]99 mmol/L Xgvxcj57-805Rpz [facility] HospitalComment on above:Performed By: #### NICO, CMADM ####[facility] Qvwhsjejrn[address] [place], [place] [address]Dr. Yilan ChangCO2 [Moles/Vol]23.5 mmol/POuhzjf94.0-32.0The [facility] HospitalComment on above:Performed By: #### NICO, CMADM ####[facility] Dsfrbvwikx[address] [place], [place] [address]Dr. Yilan ChangCreatinine [Mass/Vol]0.91 mg/dLNormal0.55-1.02The [facility] on above:Performed By: #### NICO, CMADM ####[facility] Lzwlspcusc[address] [place], [place] [address]Dr. Yilan ChangEGFR-AF VENEZUELAN>60Normal>=60The [facility] on above:Performed By: #### NICO, CMADM ####[facility] Wlglltklao[address] [place], [place] [address]Dr. Yilan ChangEGFR-NON AF VENEZUELAN>60Normal>=[address] [facility] on above:Performed By: #### NICO, CMADM ####[facility] Ifgdgaagle[address] [place], [place] [address]Dr. Yilan Soto Glucose [Mass/Vol]216 mg/dLCritically rieg35-381Owe [facility] HospitalComascension [facility] on above:Performed By: #### NICO, CMADM ####[facility] Fftzpvvzde[address] [place], [place] [address]Dr. Yilan ChangPotassium [Moles/Vol]3.7 mmol/L Normal3.5-5.1The [facility] HospitalComasc[facility] on above:Performed By: #### NICO, CMADM ####[facility] [address] [place], [place] [address]Zz. Norma ChangSodium [Moles/Vol]137 mmol/IDoqwxf080-647Jfa [facility] on above:Performed By: #### NICO, CINDY ####[facility] [address] [place], [place] [address]Vs. Celylan ChangUrea nitrogen [Mass/Vol]10.0 mg/dLNormal7.0-18.0The [facility]Comasc[facility] on above:Performed By: #### NICO, CINDY ####[facility] [address] [place], [place] [address]Dr. Celylan ChangUrea nitrogen/Creatinine [Mass ratio]11.0 mg/mgNormBlanchard Valley Health System Blanch[facility] Hospitale [facility] HospitalComment on above:Performed By: #### NICO, CINDY ####[facility] [address] [address]Dr. Norma Soto PROTIMEon 11-75-8912IUA Coag (PPP) [Relative time]1.01 {INR}NormalThe [place] [facility] on above:Performed By: #### PT, PTT ####[facility] E[address]cterkgr[address] [place], [place] [address]Dr. Norma SotoINR GUIDELINES SEE BELOWSumma Health Wadsworth - [facility]ittman [facility] on above:Result Comment: DESIRED INR: 2.0 - 3.0 CONDITIONS NOT LISTED BELOW 2.5 - 3.5 FOR PROSTHETIC HEART VALVE REPLACEMENT 2.5 - 3.5 RECURRENT THROMBOSISPerformed By: #### PT, PTT ####[facility] Potoelaxsr[address] [place], [place] [address]Dr. Norma SotoPT Coag (PPP) [Time]10.9 sNormal9.0-11.6The [facility] on above:Performed By: #### PT, PTT ####[facility] Iemismifiu[address] [place], [place] [address]Dr. Norma SotoPTTon 27-47-3063qSPT Coag (Bld) [Time]27.3 uAolgmk88.3-36.2The [facility] on above:Performed By: #### PT, PTT ####[facility] [address]ks[address]xm[address] [place], [place] [address]Dr. Celylan WqtksG4D HEMOGLOBINon 38-04-4165CmW0y (Bld) [Mass fraction]8.0 % [employer] Other HbA1c (Bld) [Mass fraction]on 54-26-7853B7U HEMOGLOBIN [facility] [employer] Other cBC AUTO DIFFon 30-61-3730IEXV #0.1 103/ulNormal 0.0-0.1The [facility] HospitalComment on above:Performed By: #### CBC ####[facility] Syqeagnywx[address] [place], [place] [address]Dr.Norma Soto Basophils/100 WBC (Bld)0.6 %Normal0.2-2.0The [facility] HospitalComment on above: Performed By: #### CBC ####[facility] Hcqbfjpzpi[address] [place], [place] [address]Dr.Yilan ChangEO #0.2 103/ulNormal0.0-0.7The [facility] HospitalComment on above:Performed By: #### CBC ####[facility] Fsbyvsgaab[address] [place], [place] [address]Dr.Celylan ChangEosinophils/100 WBC (Bld)2.0 %Normal0.9-7.0The [facility] HospitalComment on above:Performed By: #### CBC ####[facility] Hjphybdntc[address] [place], [place] [address]Dr.Celylan ChangErythrocyte distribution width (RBC) [Ratio]12.2 %Normal 11.0-15.0The [facility] HospitalComment on above:Performed By: #### CBC ####[facility] Iyewkilnhj[address] [place], [place] [address]Dr. Norma ChangHematocrit (Bld) [Volume fraction]43.2 %Nsqqix26.0-48.0The [facility] HospitalComment on above:Performed By: #### CBC ####[facility] Uzfkqgvtui[address] [place], [place] [address]Dr.Yilan ChangHemoglobin (Bld) [Mass/Vol]14.4 g/rSGwzpgu25.0-16.0The [facility] HospitalComment on above: Performed By: #### CBC ####[facility] Eli[address]ruz[address] [place], [place] [address]Dr.Norma SotoIG #0.03 10e3/ulNormal0.00-0.03The [facility] HospitalComment on above:Performed By: #### CBC ####[facility] Bhbkmay[address] [place], [place] [address]Dr.Norma SotoIG %0.4 %Normal 0.0-0.5The [facility] HospitalComment on above:Performed By: #### CBC ####[facility] Ldrysgesfe[address] [place], [place] [address]Dr.Norma SotoLYMPH #2.4 103/ulNormal1.2-3.8The [facility] HospitalComment on above:Performed By: #### CBC ####[facility] [address] [place], [place] [address]Dr.Norma SotoLymphocytes/100 WBC (Bld)28.7 %Gikmqq64.5-60.0The [facility] HospitalComment on above:Performed By: #### CBC ####[facility] Leuzxbfete[address] [place], [place] [address]Dr.Norma SotoMANUAL DIFF REQ NONormalThe Genesis HospitalComment on above:Performed By: #### CBC ####[facility] [address]vbckwhplg[address] [place], [place] [address]Dr. Norma SotoUNITED [facility] (RBC) [Entitic mass]31.3 atKlqtzy35.7-34.0The [facility] Comment on above:Performed By: #### CBC ####[facility] Pabowwsxhg[address] [place], [place] [address]Dr.Norma SotoA.[facility]. [facility] (RBC) [Mass/Vol]33.3 g/dL Akcggd83.9-35.2The [facility] HospitalComment on above:Performed By: #### CBC ####[facility] [address] [address]Dr. Norma SotoMCV (RBC) [Entitic vol]93.9 kCTbpmfx62.0-99.0[facility] Comment on above:Performed By: #### CBC ####[facility] [address] [place], [place] [address]Dr.Norma SotoMONO #0.5 103/ulNormal0.3-0.8 The Genesis HospitalComment on above:Performed By: #### CBC ####[facility] [address] [place], [place] [address]Dr.Norma Soto Monocytes/100 WBC (Bld)6.0 %Normal1.7-12.0The Genesis HospitalComment on above: Performed By: #### CBC ####[facility] Swfxy[address]cbp[address] [place], [place] [address]Dr.Norma SotoNEUT #5.2 103/ulNormal1.4-6.5The Genesis HospitalComment on above:Performed By: #### CBC ####[facility] [address] [place], [place] [address]Dr.Norma SotoNeutrophils/100 WBC (Bld)62.3 %Zoxgem79.0-75.0The Genesis HospitalComment on above:Performed By: #### CBC ####[facility] [address] [place], [place] [address]Dr.Norma SotoPlatelet mean volume (Bld) [Entitic vol]9.5 fLNormal9.5-13.5 The [facility] HospitalComment on above:Performed By: #### CBC ####[facility] G[address]agi[address] [place], [place] [address]Dr.Celylan PulzeWYQ458 103/vhOfgppf776-367Gqa Genesis HospitalComment on above:Performed By: #### CBC ####[facility] Qdvokzvywv[address] [place], [place] [address]Dr. Norma ChangRBC4.60 106/ulNormal4.20-5.40The [facility] HospitalComment on above: Performed By: #### CBC ####[facility] [address] [place], [place] [address]IbDr.Yilan SotoWBC8.3 103/ulNormal4.0-11.0The [facility] HospitalComment on above:Performed By: #### CBC ####[facility] [address] [place], [place] [address]AgDr.Yilan SotoCT ABD/PELV W CONon [id number] ABD/PELV W CONCT ABD/PELV W CON: 07/11/2021 12:19 AM EST [...] Electronically authenticated by: KURTIS CHAU Date: 2021-07-11 02:11Normal The [facility] HospitalLACTATE/LACTIC ACIDon 03-30-0327Oxwqfln [Moles/Vol]1.0 mmol/LNormal0.7-2.0The Genesis HospitalComment on above:Performed By: #### LACT #### [facility] [address] [place], [place] [address] Dr. Norma SotoLIPASEon 58-24-9003Gbtugc [Catalytic activity/Vol]42.0 U/LNormal 23.0-300.0The Genesis HospitalComment on above:Performed By: #### LIPA, LIVER, BMP #### [facility] [address] [place] [address] [address] Norma Santiago PROFILEon [id number] [Mass/Vol]3.2 g/dLCritically low3.5-5.0The [facility] HospitalComment on above:Performed By: #### LIPA, LIVER, BMP #### [facility] [address] [address] [address] Norma SotoAlbumin/Globulin [Mass ratio]0.9 {ratio}NormalThe Genesis HospitalComment on above:Performed By: #### LIPA, LIVER, BMP #### [facility] [address] [place] [address] Dr. Norma Melendez [Catalytic activity/Vol]59 U/ORhvgdj79-001Mok Genesis HospitalComment on above:Performed By: #### LIPA, LIVER, BMP #### [facility] [address] [address] [address] Norma Crawford [Catalytic activity/Vol]22 U/LNormal9-52[facility] Comment on above:Performed By: #### LIPA, LIVER, BMP #### [facility] [address] [place] [address] Dr. Norma SotoAST [Catalytic activity/Vol]16 U/MMgqcnv45-56Nxr Genesis HospitalComment on above:Performed By: #### LIPA, LIVER, BMP #### [facility] [address] [address] [address] Norma Butterfield, CONJUGATED0.0 mg/dLNormal0.0-0.3[facility] Comment on above:Performed By: #### LIPA, LIVER, BMP #### [facility] [address] [address] [address] Norma Deleonirubin [Mass/Vol]0.2 mg/dLNormal0.2-1.3TOur [facility] Comment on above:Performed By: #### LIPA, LIVER, BMP #### [facility] [address] [address] [address] Norma SotoGlobulin (S) [Mass/Vol]3.5 g/dLNormalThe Genesis HospitalComment on above:Performed By: #### LIPA, LIVER, BMP #### [facility] [address] [address] [address] Norma SotoProtein [Mass/Vol]6.7 g/dLNormal6.1-8.2[facility] Comment on above:Performed By: #### LIPA, LIVER, BMP #### [facility] [address] [place] [address] Dr. Norma SotoPROF CHEM 8 (BAS METB)on 48-29-4361Krbql gap [Moles/Vol]14.2 mmol/LNormalThe Genesis HospitalComment on above:Performed By: #### LIPA, LIVER, BMP #### [facility] [address] [place] [address] Dr. Norma SotoCalcium [Mass/Vol]8.7 mg/dLNormal8.4-10.2[facility] Comment on above:Performed By: #### LIPA, LIVER, BMP #### [facility] [address] [place] [address] Dr. Norma SotoChloride [Moles/Vol]102 mmol/RForrho11-378UqsDelaware County Hospital Comment on above:Performed By: #### LIPA, LIVER, BMP #### [facility] [address] [place] [address] Dr. Norma SotoCO2 [Moles/Vol]23.7 mmol/DQdplzr11.0-30.0[facility] Comment on above:Performed By: #### LIPA, LIVER, BMP #### [facility] [address] [place] [address] Dr. Norma SotoCreatinine [Mass/Vol]0.51 mg/dLCritically low0.52-1.04The [facility] HospitalComment on above:Performed By: #### LIPA, LIVER, BMP #### [facility] [address] [address] [address] Norma LoweryGFR-AF VENEZUELAN>60Normal>=60The [place] [facility]ner [facility] Centerment on above:Performed By: #### LIPA, LIVER, BMP #### [facility] [address] [address] [address] Norma LoweryGFR-NON AF VENEZUELAN>60Normal>=60The [facility] HospitalComment on above:Performed By: #### LIPA, LIVER, BMP #### [facility] [address] [address] [address] Norma SotoGlucose [Mass/Vol]210 mg/dLCritically ntbx56-239Ncw [place] [facility] Medical Centerment on above:Performed By: #### LIPA, LIVER, BMP #### [facility] [address] [place] [address] Dr. Norma SotoPotassium [Moles/Vol]3.9 mmol/LNormal3.4-5.0[facility] Comment on above:Performed By: #### LIPA, LIVER, BMP #### [facility] [address] [address] [address] Norma SotoSodium [Moles/Vol]136 mmol/LCritically cdm452-918Sza [place] [facility] Centerment on above:Performed By: #### LIPA, LIVER, BMP #### [facility] [address] [address] [address] Norma SotoUrea nitrogen [Mass/Vol]7.0 mg/dLNormal7.0-17.0The Genesis HospitalComment on above:Performed By: #### LIPA, LIVER, BMP #### [facility] [address] [address] [address] Norma SotoUrea nitrogen/Creatinine [Mass ratio]13.7 mg/mgNormalThe Genesis HospitalComment on above:Performed By: #### LIPA, LIVER, BMP #### [facility] [address] [address] [address] Norma SotoXR RIBS LT PA Elaine [id number] RIBS LT PA CHEXAMINATION: XR RIBS LT PA CH HISTORY: Pain [...] Electronically authenticated by: CYRUS SOTO Date: 2021-03-06 14:43[facility] ABDOMEN PELVIS WO CONTRASTon [id number] ABDOMEN PELVIS WO CONTRASTEXAMINATION: CT OF THE ABDOMEN AND PELVIS WITHOUT [...] Patient is status post prior tubal ligation. Peritoneum/Retroperitoneum: No free fluid or free air is present within the abdomen or pelvis. No aneurysm formation is noted. No pathological adenopathy is present. Bones/Soft Tissues: No acute osseous abnormality is present. IMPRESSION: 1. No acute findings within the abdomen or pelvis 2. No intrarenal calculi or evidence of hydronephrosis Interpreted by: Rasta Albright DO Signed by: Rasta Albright DO 01/23/21 Final resultNoThe University of Toledo Medical CenterUA w/Reflex Cultureon 01-24-2021 Bilirubin, SemiQt,UrNegativeNormalNEGBlanchard Valley Health SystemComment on above: Performed By: #### UMICAO, UA #### [facility] [address] [place] [address] Archeology Faculty Member: Briana Wetzel, UrineNegativermalKettering Health DaytonComment on above:Performed By: #### UMICAO, UA #### [facility] [address] [place] [address] Archeology Faculty Member: Britton Wetzel (CLEARAudrain Medical CenteralCMetroHealth Parma Medical Center Comment on above:Performed By: #### UMICAO, UA #### [facility] [address] [place] [address] [place] [address] Archeology Faculty Member: Keri Wetzel (YELLOWSumma Health Barberton Campus Comment on above:Performed By: #### UMICAO, UA #### [facility] [address] [place] [address] Archeology Faculty Member: Alfredo Best MDGlucose Ql (U)TRACEAbnormalNEGBlanchard Valley Health SystemComment on above:Performed By: #### UMICAO, UA #### [facility] [address] [place] [address] Archeology Faculty Member: Alfredo Best MDKetones Ql (U)TRACEAbnormalNEGBlanchard Valley Health SystemComment on above:Performed By: #### UMICAO, UA #### [facility] [address] [place], [place] [address] Archeology Faculty Member: Alfredo Best MDLeukocyte esterase Test strip Ql (U)TRACEAbnormal NEGBlanchard Valley Health SystemComment on above:Performed By: #### UMICAO, UA #### [facility] [address] [place] [address] Archeology Faculty Member: Osman Wetzel,UrNegativeNormksNEGBlanchard Valley Health System Comment on above:Performed By: #### UMICAO, UA #### [facility] [address] [place] [address] Archeology Faculty Member: JUANITA Wetzel,Ur6.8Mzssme0.0-9.0Bl[facility] Health SystemComment on above:Performed By: #### UMICAO, UA #### [facility] [address] [place] [address] Archeology Faculty Member: JUANITA Wetzelrotein Ql (U)NegativeNormalNEGBlanchard Valley Health SystemComment on above:Performed By: #### UMICAO, UA #### [facility] [address] [place] [address] Archeology Faculty Member: NITIN Wetzelpec. [place],Ur>1.844Zsfa5.010-1.020Bl[facility] Valley Health SystemComment on above:Performed By: #### UMICAO, UA #### [facility] [address] [place] [address] Archeology Faculty Member: Zbigniew Wetzel,UrNormalNormalNORMBlanchard Valley Health SystemComment on above:Performed By: #### UMICAO, UA #### [facility] [address] [place], [facility] Archeology Faculty Member: Nasir WetzelNOT REPORTEDMercy Health Perrysburg Hospital Comment on above:Performed By: #### UMICAO, UA #### [facility] [address] [place], [facility] Archeology Faculty Member: Carter Wetzel,Microon 01-24-2021-----NormalOhio Valley Surgical Hospital HospitalComment on above:Performed By: #### CDP, CMPX #### [facility] [address] [place] [address] Archeology Faculty Member: Alfredo Best MDEpithelial cells LM Ql (Urine sed)20 TO 50Normal 0-25Bl[facility] Health SystemComment on above:Performed By: #### CDP, CMPX #### [facility] [address] [place] [address] Archeology Faculty Member: Lino Wetzel RBC'sNoneNormal0-2MMercy Health Fairfield Hospital Comment on above:Performed By: #### CDP, CMPX #### [facility] [address] [place] [address] Archeology Faculty Member: Lino Wetzel WBC's0 TO 8Nmswuk2-1RltmsBlanchard Valley Health System Comment on above:Performed By: #### CDP, CMPX #### [facility] [address] [place] [address] Archeology Faculty Member: Alberto Wetzel sediment LM Ql (Urine sed)NOT REPORTED NormalKettering Health TroyComment on above:Performed By: #### CDP, CMPX #### [facility] [address] [place] [address] Archeology Faculty Member: Brad WetzelcteriaNOT REPORTEDNormHocking Valley Community HospitalComment on above:Performed By: #### CDP, CMPX #### [facility] [address] [place] [address] Archeology Faculty Member: LAN WetzelastsNOT REPORTEDMercy Health Perrysburg Hospital Comment on above:Performed By: #### CDP, CMPX #### [facility] [address] [place], [place] [address] Archeology Faculty Member: Carmina Wetzel LM Nom (Urine sed)NOT REPORTEDNormalNONE [facility] HospitalComment on above:Performed By: #### CDP, CMPX #### [facility] [address] [place] [address] Archeology Faculty Member: Alfredo Best MDEpithelial, RenalNOT HZVTOEHRSwauko1Ytenr Tiffin HospitalComment on above:Performed By: #### CDP, CMPX #### [facility] [address] [place] [address] Archeology Faculty Member: KATHLEEN Wetzelucus StrandsNOT REPORTEDNormalNONEMeMerit Health Central HospitalComment on above:Performed By: #### CDP, CMPX #### [facility] [address] [place] [address] Archeology Faculty Member: Alfredo Best MDOther ObservationsNOT REPORTEDNormalNREQOhio Valley Surgical Hospital HospitalComment on above:Performed By: #### CDP, CMPX #### [facility] [address] [place] [address] Archeology Faculty Member: Alfredo Best MDTrichomonasNOT REPORTEDNormalNONEMeRockville General HospitalComment on above:Performed By: #### CDP, CMPX #### [facility] [address] [place] [address] Archeology Faculty Member: Alfredo Best MDYeastNOT REPORTEDNormalNONEMeRockville General Hospital Comment on above:Performed By: #### CDP, CMPX #### [facility] [address] [place] [address] Archeology Faculty Member: SONY Wetzel Auto DifferentialOrdered By: Neelima Dutton on 31-73-6479Wxlqkqpn Eos #0.33[facility] HospitalVolt[facility] Work Phone: absolute Immature Granulocyte0.08MerVoltari Work Phone: absolute Lymph #3.17MerVoltari Work Phone: absolute Lawrence #0.50[facility] HospitalDorsaVI Phone: basophils (Bld) [#/Vol]0.09 10*3/uLBellevue HospitalDorsaVI Phone: basophils/100 WBC (Bld)1 %0 - 2 %Location Phone: differential TypeNOT REPORTEDBellevue HospitalDorsaVI Phone: eosinophils/100 WBC (Bld)2 %1 - 4 %Location Phone: Hematocrit (Bld) [Volume fraction]40.4 %36.3 - 47.1 % Location Phone: Hemoglobin.gastrointestinal spec 1 Ql (Stl)13.6 g/dL 11.9 - 15.1 g/dLBellevue HospitalDorsaVI Phone: Immature granulocytes/100 WBC (Bld)1 %Umjl7FtnrqDorsaVI Phone: Interpretation and review of laboratory results AbnormalBellevue HospitalDorsaVI Phone: lymphocytes/100 WBC (Bld)22 %Low24 - 43 %Location Phone: MCH (RBC) [Entitic mass]31.2 pg25.2 - 33.5 pgBellevue HospitalDorsaVI Phone: MCHC (RBC) [Mass/Vol]33.7 g/dL28.4 - 34.8 g/dLBellevue HospitalDorsaVI Phone: MCV (RBC) [Entitic vol]92.7 fL82.6 - 102.9 fLBellevue HospitalDorsaVI Phone: Monocytes/100 WBC (Bld)4 %3 - 12 %Location Phone: NRBC Automated0.00.0 per 100 WBCBellevue HospitalDorsaVI Phone: platelet distribution width (Bld) [Ratio]12.3 %11.8 - 14.4 %Location Phone: Platelet EstimateNOT REPORTEDRetroSense Therapeutics Work Phone: [phone] mean volume (Bld) [Entitic vol]9.4 fL8.1 - 13.5 fLLocation Phone: [phone] (Bld) [#/Vol]329 10*3/uLRetroSense Therapeutics Work Phone: RBC (Bld) [#/Vol]4.36 10*6/uL3.95 - 5.11 m/[employer] Phone: RBC (Bld) [#/Vol]NOT REPORTEDLocation Phone: [phone] neutrophils/100 WBC (Bld)70 %High36 - 65 % Location Phone: [phone] Mzhthedn74.03HighLocation Phone: WBC (Bld) [#/Vol]14.2 10*3/uLHurix Systems Private Phone: WBC (Bld) [#/Vol]NOT REPORTEDBellevue HospitalDorsaVI Phone: Location Phone: [phone] with Diffon 79-20-4204Fkp. Basophil0.09 k/uLNormal 0.00-0.20[facility] HospitalComment on above:Performed By: #### CHICHI CRANDALL #### [facility] [address] [place] [address] [place] [address] Archeology Faculty Member: Dewey Wetzel.Imm.Granulocyte0.08 k/uLNormal0.00-0.30[facility] HospitalComment on above:Performed By: ###CHICHI FALCON #### [facility] [address] [place] [address] [place] [address] Archeology Faculty Member: Dewey Wetzel.Neutrophil (Seg)10.03 k/uLHigh1.50-8.10[facility] HospitalComment on above:Performed By: #### RAZ, UA #### [address] [place], [facility] Archeology Faculty Member: Alfredo Best MDBasophils/100 WBC (Bld)1 %Normal0-2MWhite Hospital HospitalComment on above:Performed By: #### RAZ, UA #### [address] [place], [place] [address] Archeology Faculty Member: Alfredo Best MDEosinophils (Bld) [#/Vol]0.33 10*3/uLNormal 0.00-0.44[facility] HospitalComment on above:Performed By: #### RAZ UA #### [address] [place], [place] [address] Archeology Faculty Member: DANA Wetzelosinophils/100 WBC (Bld)2 %Normal1-4[facility] HospitalComment on above:Performed By: #### RAZ, UA #### [address] [place], [facility] Archeology Faculty Member: Alfredo Best MDErythrocyte distribution width (RBC) [Ratio]12.3 %Pskntf65.8-14.4Bl[facility] Valley Health SystemComment on above:Performed By: #### RAZ, UA #### [address] [place], [place] [address] Archeology Faculty Member: Alfredo Best MDHematocrit (Bld) [Volume fraction]40.4 %Normal 36.3-47.1MWhite Hospital HospitalComment on above:Performed By: #### RAZ, UA #### [address] [place], [facility] Archeology Faculty Member: Alfredo Best MDHemoglobin (Bld) [Mass/Vol]13.6 g/dLNormal 11.9-15.1MWhite Hospital HospitalComment on above:Performed By: #### RAZ, UA #### [address] [place] [address] Archeology Faculty Member: Alfredo Best MDImmature granulocytes/100 WBC (Bld)1 %Thjs7OdnmfOhio Valley Surgical Hospital HospitalComment on above:Performed By: #### RAZ, UA #### [address] [place] [address] Archeology Faculty Member: Lili Wetzelmphocytes (Bld) [#/Vol]3.17 10*3/uLNormal 1.10-3.70[facility] HospitalComment on above:Performed By: #### RAZ UA #### [address] [place] [address] Archeology Faculty Member: Lili Wetzelmphocytes/100 WBC (Bld)22 %Ahc90-04Ezgmc Tiffin HospitalComment on above:Performed By: #### RAZ, UA #### [address] [place], [place] [address] Archeology Faculty Member: FREDA Wetzel (RBC) [Entitic mass]31.2 btBsxxed27.2-33.5 [facility] HospitalComment on above:Performed By: #### RAZ, UA #### [address] [place] [address] Archeology Faculty Member: FREDA WetzelC (RBC) [Mass/Vol]33.7 g/iVCeoozw11.4-34.8 [facility] HospitalComment on above:Performed By: #### RAZ, UA #### [address] [place], [place] [address] Archeology Faculty Member: Alfredo Nasir, MDMCV (RBC) [Entitic vol]92.7 qQXhgvzq21.6-102.9 [facility] HospitalComment on above:Performed By: #### RAZ UA #### [facility] [address] [place] [address] Archeology Faculty Member: KATHLEEN Wetzelonocytes (Bld) [#/Vol]0.50 10*3/uLNormal 0.10-1.20MerProMedica Toledo Hospital HospitalComment on above:Performed By: #### CHICHI CRANDALL #### [address] [place] [address] Archeology Faculty Member: KATHLEEN Wetzelonocytes/100 WBC (Bld)4 %Normal3-12[facility] HospitalComment on above:Performed By: #### CHICHI CRANDALL #### [address] [place], [facility] Archeology Faculty Member: Ham Wetzelutrophil (Seg)70 %Slle32-42Cgore Tiffin HospitalComment on above:Performed By: #### RAZ UA #### [address] [place] [address] Archeology Faculty Member: Alfredo Best MDNRBC Automated0.0 per 100 WBCNormal0.0[facility] HospitalComment on above:Performed By: #### RAZ, UA #### [address] [place], [place] [address] Archeology Faculty Member: JUANITA Wetzellatelet mean volume (Bld) [Entitic vol]9.4 fL Normal8.1-13.5[facility] HospitalComment on above:Performed By: #### RAZ UA #### [address] [place], [place] [address] Archeology Faculty Member: JUANITA Wetzellatelets (Bld) [#/Vol]329 10*3/gHPynbyz645-394 [facility] HospitalComment on above:Performed By: #### NATALIEO, UA #### [facility] [address] [place] [address] Archeology Faculty Member: PATRICIA Wetzel (Bld) [#/Vol]4.36 10*6/uLNormal3.95-5.11[facility] HospitalComment on above:Performed By: #### NATALIEO, UA #### [facility] [address] [place] [address] Archeology Faculty Member: POPPY Wetzel (Bld) [#/Vol]14.2 10*3/uLHigh3.5-11.3[facility] HospitalComment on above:Performed By: #### RAZ, UA #### [address] [place], [place] [address] Archeology Faculty Member: Melvina Wetzel PerformedNOT REPORTEDNormalMercy Rollinsford HospitalComment on above:Performed By: #### RAZ, UA #### [address] [place], [facility] Archeology Faculty Member: Rdaha Wetzel EstimateNOT REPORTEDNormalMercy Rollinsford HospitalComment on above:Performed By: #### RAZ, UA #### [facility] [address] [place], [facility] Archeology Faculty Member: PATRICIA Wetzel morphology finding Nom (Bld)NOT REPORTED NormalMercy Rollinsford HospitalComment on above:Performed By: #### RAZ, UA #### [facility] [address] [place], [facility] Archeology Faculty Member: POPPY Wetzel MorphologyNOT REPORTEDNormalMercy Rollinsford HospitalComment on above:Performed By: #### RAZ, UA #### [facility] [address] [place] [address] Archeology Faculty Member: Alfredo Best, MDCT ABDOMEN PELVIS WO CONTRAST Additional Contrast? NoneOrdered By: Neelima Dutton on . No acute findings within the abdomen or pelvis 2. No intrarenal calculi or evidence of hydronephrosis Location Phone: eXAMINATION: CT OF THE ABDOMEN AND PELVIS WITHOUT [...] pain Decision Support Exception - unselect if nota suspected or confirmed emergency medical condition->Emergency Medical [...] present without evidence of diverticulitis. Pelvis: Urinary b ladder appears normal. Uterus is normal in size. Patient is status post prior tubal ligation. Peritoneum/Retroperitoneum: No free fluid or free air is present within the abdomen or pelvis. No aneurysm formation is noted. No pathological adenopathy is present. Bones/Soft Tissues: No acute osseous abnormality is present.Location Phone: efabio, rolf Incoming Radiant Results From [employer] - 01/23/2021 10:07 PM EDT EXAMINATION: CT [...] Patient is status post prior tubal ligation. Peritoneum/Retroperitoneum: No free fluid or free air is present within the abdomen or pelvis. No aneurysm formation is noted. No pathological adenopathy is present. Bones/Soft Tissues: No acute osseous abnormality is present. IMPRESSION: 1. No acute findings within the abdomen or pelvis 2. No intrarenal calculi or evidence of hydronephrosis [facility] Work Phone: [facility] Work Phone: comp Metabolic Pr/rfx MGon 09-93-9612Hejhztwvi [Moles/Vol]3.4 mmol/LLow3.7-5.3[facility] HospitalComment on above:Performed By: #### CHICHI CRANDALL #### [facility] [address] [place] [address] Archeology Faculty Member: Alfredo Best MD(cont.)[facility] HospitalComment on above:Result Comment: Average GFR for 30-39 years old: 107 mL/min/1.73sq m Chronic Kidney Disease: <60 mL/min/1.73sq m Kidney failure: <15 mL/min/1.73sq m eGFR calculated using average adult body mass. Additional eGFR calculator available at: http://www.[employer]/multiple_crcl_2012.htmPerformed By: #### CHICHI CRANDALL #### [address] [place], [place] [address] Archeology Faculty Member: Alfredo Best MDAlbumin [Mass/Vol]3.9 g/dLNormal3.5-5.2[facility] HospitalComment on above:Performed By: #### RAZ UA #### [address] [place] [address] Archeology Faculty Member: Alfredo Best MDAlbumin/Glob Ratio1.1Zgnkug6.0-2.5Mercy Rollinsford HospitalComment on above:Performed By: #### CHICHI CRANDALL #### [address] [place], [facility] Archeology Faculty Member: Deja Wetzelkaline Phos61 U/BXttwum22-580Kqadm Rollinsford HospitalComment on above:Performed By: #### CHICHI CRANDALL #### [address] [place], [facility]83 Archeology Faculty Member: Alfredo Best MDALT [Catalytic activity/Vol]7 U/LNormal5-33Mercy Rollinsford HospitalComment on above:Performed By: #### CHICHI CRANDALL #### [address] [place], [facility]83 Archeology Faculty Member: Alfredo Best MDAnion gap [Moles/Vol]12 mmol/LNormal9-17Mercy Rollinsford HospitalComment on above:Performed By: #### RAZ UA #### [address] [place], [place] [address] Archeology Faculty Member: Alfredo Best MDAST [Catalytic activity/Vol]8 U/LNormal<32Mer[facility] Rollinsford HospitalComment on above:Performed By: #### UMICAO, UA #### [facility] [address] [place] [address] Archeology Faculty Member: Alfredo Best MDBilirubin [Mass/Vol]0.17 mg/dLLow0.3-1.2MWhite Hospital HospitalComment on above:Performed By: #### UMICAO, UA #### [facility] [address] [place] [address] Archeology Faculty Member: Alfredo Best MDBUN/CRE Mcnib34Tggsfl9-68Atfyp [facility] Comment on above:Performed By: #### UMICAO, UA #### [facility] [address] [place] [address] Archeology Faculty Member: LAN Wetzelalcium [Mass/Vol]8.9 mg/dLNormal8.6-10.4[facility] Health SystemComment on above:Performed By: #### NATALIEO, UA #### [address] [place] [address] Archeology Faculty Member: LAN Wetzelhloride [Moles/Vol]102 mmol/BGqqyqw32-939ZosorBlanchard Valley Health SystemComment on above:Performed By: #### UMICAO, UA #### [address] [place] [address] Archeology Faculty Member: Alfredo Best MDCO2 [Moles/Vol]22 mmol/BLhdcjm01-73Zpyeq [facility]iffin HospitalComment on above:Performed By: #### UMICAO, UA #### [facility] [address] [place] [address] Archeology Faculty Member: LAN Wetzelreatinine [Mass/Vol]0.76 mg/dLNormal0.50-0.90 [facility] SystemComment on above:Performed By: #### UMICAO, UA #### [facility] [address] [place] [address] Archeology Faculty Member: Alfredo Best MDGFR, Amer>60Normal>60[facility] Comment on above:Performed By: #### UMMARCO AO, UA #### [address] [place] [address] Archeology Faculty Member: Alfredo Best MDGFR,non Amer>60Normal>60MerProMedica Toledo Hospital HospitalComment on above:Performed By: #### UMICAO, UA #### [address] [place], [place] [id number] Archeology Faculty Member: Alfredo Best MDGlucose [Mass/Vol]262 mg/eMTkyb31-12Bswvc Griffin HospitalComment on above:Performed By: #### UMICAO, UA #### [address] [place], [place] [address] Archeology Faculty Member: JUANITA Wetzelrotein [Mass/Vol]6.3 g/dLLow6.4-8.3Mercy Rollinsford HospitalComment on above:Performed By: #### RAZ, UA #### [address] [place], [place] [address] Archeology Faculty Member: NITIN Wetzelodium [Moles/Vol]136 mmol/ODjnzqr506-675OsaccBlanchard Valley Health SystemComment on above:Performed By: #### RAZ, UA #### [address] [place], [place] [address] Archeology Faculty Member: NITIN Wetzeltaging:NormalOhio Valley Surgical Hospital HospitalComment on above:Result Comment: Stage 1: Some kidney damage normal GFR Stage 2: Mild kidney damage GFR 60-89 Stage 3: Moderate kidney damage GFR 30-59 Stage 4: Severe kidney damage GFR 15-29 Stage 5: Severe kidney damage GFR <15 ESRD - chronic treatment by dialysis or transplantPerformed By: #### UMICAO, UA #### [address] [place], [place] [address] Archeology Faculty Member: Alfredo Nasir, MDUrea nitrogen [Mass/Vol]13 mg/dLNormal6-20[facility] Health SystemComment on above:Performed By: #### RAZ, UA #### [facility] [address] [place] [address] Archeology Faculty Member: LAN Wetzelomprehensive Metabolic Panel w/ Reflex to MG Ordered By: Neelima Dutton on 73-98-7942Uxgpnye [Mass/Vol]3.9 g/dL3.5 - 5.2 g/dL [facility] [employer] Phone: [phone]/Globulin [Mass ratio]1.6 {ratio}[facility] [employer] Phone: MLP (Bld) [Catalytic activity/Vol]61 U/L35 - 104 U/L [facility] [employer] Phone: DLT [Catalytic activity/Vol]7 U/L5 - 33 U/LMmarietta osteopathic clinic [employer] Phone: Anion gap [Moles/Vol]12 mmol/L9 - 17 mmol/LMmarietta osteopathic clinic [employer] Work Phone: JST [Catalytic activity/Vol]8 U/L<32[facility] Phone: Dilirubin [Mass/Vol]0.17 mg/dLLow0.3 - 1.2 mg/dLBellevue HospitalDorsaVI Phone: [phone] [Mass/Vol]8.9 mg/dL8.6 - 10.4 mg/dLBellevue HospitalDorsaVI Phone: Ghloride [Moles/Vol]102 mmol/L98 - 107 mmol/LMcleveland clinic euclid hospitalBlazent Work Phone: RL1 [Moles/Vol]22 mmol/L20 - 31 mmol/LMMoki - formerly [employer] Phone: Ereatinine [Mass/Vol]0.76 mg/dL0.50 - 0.90 mg/dLBellevue HospitalDorsaVI Phone: Free PSA/Total PSA [Mass fraction]6.3 g/dLLow6.4 - 8.3 g/dLBellevue HospitalDorsaVI Phone: GFR >60>60 mL/minBellevue HospitalDorsaVI Phone: GFR Non->60>60 mL/minBellevue HospitalDorsaVI Phone: Glucose [Mass/Vol]262 mg/wUOgrw82 - 99 mg/dLBellevue HospitalDorsaVI Phone: Interpretation and review of laboratory results AbnormalBellevue HospitalDorsaVI Phone: potassium [Moles/Vol]3.4 mmol/LLow3.7 - 5.3 mmol/L [facility] Phone: sodium [Moles/Vol]136 mmol/L135 - 144 mmol/LMmarietta osteopathic clinic [employer] Phone: Urea nitrogen (BldV) [Mass/Vol]13 mg/dL6 - 20 mg/dL [facility] Phone: Urea nitrogen/Creatinine (Bld) [Mass ratio]17[facility] Phone: [facility] Phone: laboratory - Chemistry and Chemistry - challenge Ordered By: Neelima Dutton on 30-90-1520JOU/1.73 sq M.predicted MDRD (S/P/Bld) [Vol rate/Area][facility]POINT [facility] Phone: comment on above:Average GFR for 30-39 years old: 107 mL/min/1.73sq m Chronic Kidney Disease: <60 mL/min/1.73sq m Kidney failure: <15 mL/min/1.73sq m eGFR calculated using average adult body mass. Additional eGFR calculator available at: http://www.[employer]aMet[employer]/multiple_crcl_2012.htm Stage 1: Some kidney damage normal GFR Stage 2: Mild kidney damage GFR 60-89 Stage 3: Moderate kidney damage GFR 30-59 Stage 4: Severe kidney damage GFR 15-29 Stage 5: Severe kidney damage GFR <15 ESRD - chronic treatment by dialysis or transplant Lactate, Sepsison 41-58-9235Gxxeid Acid, Sepsis1.4 mmol/LNormal0.5-1.9[facility] Health SystemComment on above:Performed By: #### CHICHI CRANDALL #### [address] [place] [address] Archeology Faculty Member: Vazquez Wetzelic Acid,Sep WbldNOT REPORTEDNormal0.5-1.9 [facility] SystemComment on above:Performed By: #### CHICHI CRANDALL #### [address] [place] [address] Archeology Faculty Member: Alfredo Best MDLactate, SepsisOrdered By: Neelima Dutton on 20-94-5078Jrvywc Acid, Sepsis1.4 mmol/L0.5 - 1.9 mmol/LMercy Health Work Phone: lactic Acid, Sepsis, Whole BloodNOT REPORTED0.5 - 1.9 mmol/LMercy Health Work Phone: Mer [employer] Work Phone: lipaseon 58-29-8104Fynxmg [Catalytic activity/Vol]22 U/VRecrya56-23GstmsBlanchard Valley Health SystemComment on above:Performed By: #### CHICHI CRANDALL #### [address] [place] [address] Archeology Faculty Member: Alfredo Best MDLipaseOrdered By: Neelima Dutton on 01-23-2021 Lipase [Catalytic activity/Vol]22 U/L13 - 60 U/LMercy Health Work Phone: [facility] HospitalVolt[facility] Work Phone: Magnesiumon 26-20-1832Pemcuvjep [Mass/Vol]1.7 mg/dL Normal1.6-2.6MMercy Health Fairfield HospitalComment on above:Performed By: #### RAZ UA #### [address] [place] [address] Archeology Faculty Member: Alfredo Best, MDMagnesiumOrdered By: Neelima Dutton on 01-23-2021 Magnesium [Mass/Vol]1.7 mg/dL1.6 - 2.6 mg/dLMercy Health Work Phone: [facility] Work Phone: Microscopic UrinalysisOrdered By: Neelima Dutton on 01-23-2021-[facility] Work Phone: amorphous, UANOT REPORTEDNoneMercy Health Work Phone: bacteria, UANOT REPORTEDNoneMercy Health Work Phone: casts UANOT REPORTED/LPFMercy Health Work Phone: crystals, UANOT REPORTEDNone /HPFMercy Health Work Phone: epithelial Cells UA20 TO 50[facility] Work Phone: Mucus, UANOT REPORTEDNoneMercy Health Work Phone: Other Observations UANOT REPORTEDNOT REQ.[facility] System[facility] Work Phone: rBC, UANoneMercy Health Work Phone: renal Epithelial, UANOT REPORTED0 /HPFMercy Health Work Phone: Trichomonas, UANOT REPORTEDNoneMercy Health Work Phone: WBC, UA0 TO 2[facility] Work Phone: Yeast, UANOT REPORTEDNoneMercy Health Work Phone: [facility] Work Phone: Urinalysis Reflex to CultureOrdered By: Neelima Dutton on 84-56-2125Hmqbnfmvf UrineNegativeNEGATIVEMercy Health Work Phone: color, UAYELLOWYELLOWMercy Health Work Phone: Glucose, UrTRACEAbnormalNEGATIVEMercy Health Work Phone: Interpretation and review of laboratory results AbnormalMer [employer] Work Phone: Ketones Ql (U)TRACEAbnormalNEGATIVEMercy Health Work Phone: leukocyte esterase Test strip Ql (U)TRACEAbnormal NEGATIVEMer Health Work Phone: Nitrite, UrineNegativeNEGATIVEMercy Health Work Phone: pH, UA6.0[facility] Work Phone: protein, UANegativeNEGATIVEMer Health Work Phone: specific [place], UA>1.030HighMer [employer]OV[employer] Work Phone: Turbidity UACLEARCLEARMer Health Work Phone: Urinalysis CommentsNOT REPORTEDMer [employer] Work Phone: Urine HgbNegativeNEGATIVEMer Health Work Phone: Urobilinogen, UrineNormalNormalMer Health Work Phone: [facility] Work Phone: XR ANKLE RIGHT (MIN 3 VIEWS)on 04-82-7395KN ANKLE RIGHT (MIN 3 VIEWS)EXAMINATION: 2 XRAY VIEWS OF THE RIGHT TIBIA [...] Signed by: Talib Littlejohn MD 10/06/20 Final resultNoThe [facility] of Toledo Medical CenterXR FOOT RIGHT (MIN 3 VIEWS)on 10-06-2020 XR FOOT RIGHT (MIN 3 VIEWS)EXAMINATION: 2 XRAY VIEWS OF THE RIGHT TIBIA [...] Signed by: Talib Littlejohn MD 10/06/20 Final resultNoThe University of Toledo Medical CenterXR TIBIA FIBULA RIGHT (2 VIEWS)on 22-01-2598OS TIBIA FIBULA RIGHT (2 VIEWS)EXAMINATION: 2 XRAY VIEWS OF THE RIGHT TIBIA [...] Signed by: Talib Littlejohn MD 10/06/20 Final resultNoTriHealth [facility] Auto Differentialon 04-03-2020 Basophils (Bld) [#/Vol]0.05 10*3/[facility]- [place], KYBasophils/100 WBC (Bld)1 %0 - 2 %[facility]- [place], KYDifferential TypeNOT REPORTEDMercy Health [facility]- [place], [place] Eosinophils (Bld) [#/Vol]10*3/[facility]- [place], KYEosinophils/100 WBC (Bld)0 % Low1 - 4 %[facility]- [place], KYErythrocyte distribution width (RBC) [Ratio]11.5 % Low11.8 - 14.4 %[facility]- [place], KYHematocrit (Bld) [Volume fraction]45.0 %36.3 - 47.1 %[facility]- [place], KYHemoglobin (Bld) [Mass/Vol]15.0 g/dL11.9 - 15.1 g/dL [facility]- [place], KYImmature granulocytes (Bld) [#/Vol]0.04 10*3/[facility]- [place], KYImmature granulocytes (Bld) [#/Vol]0 %0[facility]- [place], KYInterpretation and review of laboratory resultsAbnoMercy Health [facility]- [place], KYLymphocytes (Bld) [#/Vol]1.64 10*3/[facility]- [place], KYLymphocytes/100 WBC (Bld)16 %Low24 - 43 % [facility]- [place], KYMCH (RBC) [Entitic mass]29.9 pg25.2 - 33.5 pgMercy Health [facility]- [place], KYMCHC (RBC) [Mass/Vol]33.3 g/dL28.4 - 34.8 g/dLMercy Health [facility]- [place], KYMCV (RBC) [Entitic vol]89.8 fL82.6 - 102.9 fLMercy Health [facility] Center- [place], KYMonocytes (Bld) [#/Vol]0.53 10*3/uLMercy Health [facility]- [place], KYMonocytes/100 WBC (Bld)5 %3 - 12 %[facility]- [place], KYPlatelet mean volume (Bld) [Entitic vol]9.4 fL8.1 - 13.5 fLTriHealth McCullough-Hyde Memorial Hospital CLAYTONPlatelets (Bld) [#/Vol]NOT REPORTEDTriHealth [facility] CLAYTONPlatelets (Bld) [#/Vol]256 10*3/uLAccess Hospital DaytonCLAYTONRBC (Bld) [#/Vol]5.01 10*6/uL3.95 - 5.11 m/uLAccess Hospital Dayton, RIRBC morphology finding Nom (Bld)NOT REPORTEDTriHealth [facility]ull[facility] Jenygmented neutrophils/100 WBC (Bld)78 %High36 - 65 %[facility] CLAYTONSegs Absolute7.91[facility] CLAYTONWBC (Bld) [#/Vol]0.0 10*3/uL0.0 per 100 WBCTriHealth McCullough-Hyde Memorial Hospital CLAYTONWBC (Bld) [#/Vol]10.2 10*3/uLAccess Hospital [place], CLAYTONWBC MorphologyNOT REPORTEDTriHealth [facility] CLAYTONCOVID-19, PCRon 62-87-1340NGJF-CoV-2, RapidNot DetectedNot DetectedTriHealth McCullough[facility] Hospital CLAYTONComment on above: Rapid NAAT: The specimen is [...] management decisions. Fact sheet for Healthcare Providers: https://www.fda.gov/media/264845/download Fact sheet for Patients: https://www.fda.gov/media/156058/download Methodology: Isothermal Nucleic Acid Amplification Source.NASOPHARYNGEAL SWABMercy Health West Hospitalprehensive Metabolic Panel w/ Reflex to MGon 86-12-7164Jucxivp [Mass/Vol]4.5 g/dL3.5 - 5.2 g/dLHenry County Hospital Health- [place], KYAlbumin/Globulin [Mass ratio]1.7 {ratio}[facility]- [place], KYALP [Catalytic activity/Vol]78 U/L35 - 104 U/LMmarietta [facility] Health- [place], KYALT [Catalytic activity/Vol] 12 U/L5 - 33 U/LMmarietta osteopathic clinic Health- [place], KYAnion gap [Moles/Vol]15 mmol/L9 - 17 mmol/L [facility]- [place], KYAST [Catalytic activity/Vol]10 U/L<32[facility]- [place], [place] Bilirubin Ql (U)0.60 mg/dL0.3 - 1.2 mg/dLHenry County Hospital Health- [place], KYBun/Cre Ratio17 [facility]- [place], KYCalcium [Mass/Vol]9.1 mg/dL8.6 - 10.4 mg/dLHenry County Hospital Health- [place], KYChloride [Moles/Vol]97 mmol/LLow98 - 107 mmol/LMmarietta osteopathic clinic Health- [place], KYCO2 [Moles/Vol]20 mmol/L20 - 31 mmol/LMmarietta [facility] Health- [place], KYCreatinine [Mass/Vol]0.64 mg/dL0.5 - 0.9 mg/dLHenry County Hospital Health- [place], KYGFR >60>60 mL/minMer Health- [place], KYGFR Non->60>60 mL/minHenry County Hospital Health- [place], KYGlucose [Mass/Vol]204 mg/aARfel15 - 99 mg/dLHenry County Hospital Health- [place], KYInterpretation and review of laboratory resultsAbnormalHenry County Hospital Health- [place], KYPotassium [Moles/Vol]3.2 mmol/LLow3.7 - 5.3 mmol/LMcleveland clinic euclid hospitaly Health- [place], KYProtein [Mass/Vol]7.1 g/dL6.4 - 8.3 g/dLHenry County Hospital Health- [place], KYSodium [Moles/Vol]132 mmol/MUae821 - 144 mmol/LMcleveland clinic euclid hospitaly Health- [place], KYUrea nitrogen [Mass/Vol]11 mg/dL6 - 20 mg/dLHenry County Hospital Health- [place], [place] Drug screen multi urineon 21-05-4679Vonadapkcfx Screen, UrNegativeNEGATIVEMercy Health- [place], KYBarbiturate Screen, UrNegativeNEGATIVEMercy Health- [place], [place] Benzodiazepine Screen, UrineNegativeNEGATIVEMercy Health- [place], KYBuprenorphine UrineNegativeNEGATIVEMercy Health- [place], KYCannabinoid Scrn, UrPositiveAbnormal NEGATIVEMercy Health- [place], KYCocaine Metabolite, UrineNegativeNEGATIVEMercy Health- [place], KYInterpretation and review of laboratory resultsAbnormalMercy Health- [place], KYMDMA, UrineNOT REPORTEDNEGATIVEMercy Health- [place], KYMethadone Screen, UrineNegativeNEGATIVEMercy Health- [place], KYMethamphetamine, UrinePositive AbnormalNEGATIVEMercy Health- [place], KYOpiates, UrineNegativeNEGATIVEMercy Health- [place], KYOxycodone Screen, UrNegativeNEGATIVEMercy Health- [place], KYPhencyclidine, UrineNegativeNEGATIVEMercy Health- [place], KYPropoxyphene, UrineNegativeNEGATIVE [facility]- [place], KYTest InformationNOT REPORTEDMercy Health- [place], KYTricyclic Antidepressants, UrineNegativeNEGATIVEMercy Health- [place], KYComment on above:Drug screen results are to be used for medical purposes only. All positive results are unconfirmed. Testing for employment or legal uses should be sent to a reference laboratory for confirmation. EKG 12 Leadon 67-18-4076Parwbl Drvn900CIFNhjbi Health- [place], KYP Tblf59xlaxmdw [facility]- [place], KYP-R Ebdpxisg752 msMercy Health- [place], KYQ-T Qvhmrkzb704 ms [facility]- [place], KYQRS Ktfjvmlw38 msMercy Health- [place], KYQTc Calculation (Bazett)526 msMercy Health- [place], KYR Vvhs81iutgtphZzgoi Health- [place], KYT Axis30 degreesMercy Health- [place], KYVentricular Xwyp208NEOKkuux Health- [place], KYSinus tachycardia Prolonged QT Abnormal ECG When compared with ECG of 29-MAR-2020 17:56, Nonspecific T wave abnormality no longer evident in Anterior leads QT has lengthened Confirmed by CYRUS TOVAR ([id number]) on 04/03/2020 10:54:10 PMMercy Health- [place], [place], Mhpn Incoming Ekg Results From [facility] [place] - 04/03/2020 10:54 PM EST Sinus tachycardia Prolonged QT Abnormal ECG When compared with ECG of 29-MAR-2020 17:56, Nonspecific T wave abnormality no longer evident in Anterior leads QT has lengthened Confirmed by CYRUS TOVAR ([id number]) on 04/03/2020 10:54:10 PMAccess Hospital [place], [place] Ethanolon 20-01-9971Tmheidq [Mass/Vol]mg/dL<10 mg/dLAccess Hospital [place], KYEthanol percent<0.010<0.010 %[facility], CLAYTONMagnesiumon 63-00-9886Nwnayiixl [Mass/Vol]1.8 mg/dL1.6 - 2.6 mg/dLAccess Hospital Dayton, RIMetabolic Panelon 03-70-9448JLV/1.73 sq M predicted among non-blacks MDRD (S/P/Bld) [Vol rate/Area][facility], RIComment on above:Stage 1: Some kidney damage normal GFR Stage 2: Mild kidney damage GFR 60-89 Stage 3: Moderate kidney damage GFR 30-59 Stage 4: Severe kidney damage GFR 15-29 Stage 5: Severe kidney damage GFR <15 ESRD - chronic treatment by dialysis or transplant Average GFR for 30-39 years old: 107 mL/min/1.73sq m Chronic Kidney Disease: <60 mL/min/1.73sq m Kidney failure: <15 mL/min/1.73sq m eGFR calculated using average adult body mass. Additional eGFR calculator available at: http://www.Veset.[employer]/multiple_crcl_2012.htm Microscopic Urinalysison 73-55-6029Wplurcpjj, UANOT REPORTEDNoneMeMercy Health [facility]field Hospital [place], KYBacteria, UATRACEAbnormalNoneMeMercy Health Fairfield Hospital [place], KYCasts UANOT REPORTED/LPF [facility] [place], KYCrystals, UANOT REPORTEDNone /HPFPike Community Hospital [place], [place] Epithelial Cells UA10 TO 20[facility] [place], KYInterpretation and review of laboratory resultsAbnormProMedica Defiance [facility] [place], KYMucus, UANOT REPORTEDNoneMeMercy Health [facility]field Hospital [place], KYOther Observations UANOT REPORTEDNOT REQ.[facility]- [place], KYRBC (U) [#/Vol]0 TO 2[facility]- [place], KYRenal Epithelial, UANOT REPORTED0 /HPFMercy Health- [place], KYTrichomonas, UANOT REPORTEDNoneMercy Health- [place], KYWBC, UA2 TO 5 [facility]- [place], KYYeast, UANOT REPORTEDNoneMercy Health- [place], [place]-[facility]- [place], KYOtheron 77-29-7263WKNZ-CoV-2[facility]- [place], KYPregnancy, Urineon 87-54-3511Uwwu HCG ( test) Ql (U)NegativeNEGATIVEMercy Health- [place], [place] Comment on above:Specimens with hCG levels near the threshold of the test (25 mIU/mL) may give a negative or indeterminate result. In such cases, another test should be performed with a new specimen in 48-72 hours. If early is suspected clinically in this setting, correlation with quantitative serum b-hCG level is suggested. [employer] has confirmed the use of plasma for this test. This has not been cleared or approved by the U.S. Food and Drug Administration. The FDA has determined that such clearance is not necessary. T4on 55-31-5504V3, Total8.9 ug/dL4.5 - 10.9 ug/dLMercy Health- [place], KYTSH without Reflexon 32-75-2357HLC Qn2.31 m[IU]/LMercy Health- [place], KYUrinalysis, reflex to microscopicon 78-19-0118Vqfjvdanl UrineNegativeNEGATIVEMercy Health- [place], [place] Color, UAYELLOWYELLOWMercy Health- [place], KYGlucose, UrNegativeNEGATIVEMercy Health- [place], KYInterpretation and review of laboratory resultsAbnormalMercy Health- [place], KYKetones Ql (U)1+AbnormalNEGATIVEMercy Health- [place], KYLeukocyte esterase Test strip Ql (U)TRACEAbnormalNEGATIVEMercy Health- [place], KYNitrite, UrineNegativeNEGATIVEMercy Health- [place], KYpH, UA6.0[facility]- [place], KYProtein (U) [Mass/Vol]NegativeNEGATIVEMercy Health- [place], KYSpecific [place], UA1.025High [facility]- [place], KYTurbidity UASLIGHTLY CLOUDYAbnormalCLEARMercy Health- [place], [place] Urinalysis CommentsNOT REPORTEDPike Community Hospital [place], KYUrine HgbNegativeNEGATIVE [facility] [place], KYUrobilinogen, UrineNormalNormalPike Community Hospital [place], [place] Cult,Urineon 25-25-2748Gzpw,UrineSpecimen Description .CLEAN CATCH URINE Special Requests NOT REPORTED Culture NO SIGNIFICANT GROWTH Report Status FINAL 03/30/2020NoSt. Rita's Hospital HospitalComment on above: Performed By: #### URC #### [facility] [address] [place] [address] Archeology Faculty Member: Bipin Villa MD [facility] [address] [place] [address] Archeology Faculty Member: Alfredo Best, MDAcetaminophenon 37-46-1297Krhsojlnxtloy [Mass/Vol]ug/gHBje68-64OesreBlanchard Valley Health SystemComment on above:Performed By: #### CDP, CMPX #### [facility] [address] [place] [address] Archeology Faculty Member: Alfredo Best, MDAcetaminophen levelon 89-07-1290Zhgstaljttfes [Mass/Vol]<5Low10 - 30 ug/mLAccess Hospital [place], KYInterpretation and review of laboratory resultsAbnormalAccess Hospital [place], KYCBC Auto Differentialon 03-29-2020 Basophils (Bld) [#/Vol]0.04 10*3/uLAccess Hospital [place], KYBasophils/100 WBC (Bld)0 %0 - 2 %[facility] [place], KYDifferential TypeNOT REPORTEDAccess Hospital [place], [place] Eosinophils (Bld) [#/Vol]10*3/uLPike Community Hospital [place], KYEosinophils/100 WBC (Bld)0 % Low1 - 4 %[facility] [place], KYErythrocyte distribution width (RBC) [Ratio]11.7 % Low11.8 - 14.4 %[facility], KYHematocrit (Bld) [Volume fraction]48.5 %High 36.3 - 47.1 %[facility], KYHemoglobin (Bld) [Mass/Vol]16.7 g/yBKwfj49.9 - 15.1 g/dLAccess Hospital [place], CLAYTONImmature granulocytes (Bld) [#/Vol]0.05 10*3/uL [facility]- [place], RIImmature granulocytes (Bld) [#/Vol]0 %0[facility], [place] Interpretation and review of laboratory resultsAbnormalAccess Hospital [place], [place] Lymphocytes (Bld) [#/Vol]2.23 10*3/uLMercy Health Springfield Regional Medical Center- [place], RILymphocytes/100 WBC (Bld)16 %Low24 - 43 %[facility], [facility] (RBC) [Entitic mass]30.3 pg25.2 - 33.5 pgAccess Hospital [place], RIMCHC (RBC) [Mass/Vol]34.4 g/dL28.4 - 34.8 g/dLAccess Hospital [place], RIMCV (RBC) [Entitic vol]88.0 fL82.6 - 102.9 fLTar Heel, [place] Monocytes (Bld) [#/Vol]0.64 10*3/uLAccess Hospital [place], CLAYTONMonocytes/100 WBC (Bld)5 %3 - 12 %[facility], RIPlatelet mean volume (Bld) [Entitic vol]8.6 fL8.1 - 13.5 fLAccess Hospital [place], RIPlatelets (Bld) [#/Vol]383 10*3/uLAccess Hospital [place], RIPlatelets (Bld) [#/Vol]NOT REPORTEDAccess Hospital [place], RIRBC (Bld) [#/Vol]5.51 10*6/uLHigh3.95 - 5.11 m/uLMercy Health [facility]- [place], RIRBC morphology finding Nom (Bld) NOT REPORTEDAccess Hospital [place], RISegmented neutrophils/100 WBC (Bld)79 %High36 - 65 %[facility]- [place], RISegs Jumqgjnb60.66HighMercy Health [facility]- [place], RIWBC (Bld) [#/Vol]0.0 10*3/uL0.0 per 100 WBCAccess Hospital [place], RIWBC (Bld) [#/Vol]13.6 10*3/uLKettering Health Springfield, KYWBC MorphologyNOT REPORTEDAccess Hospital [place], KYCBC with Diffon [id number]. Basophil0.04 k/uLNormal0.00-0.20[facility] HospitalComment on above:Performed By: #### CDP, CMPX #### [facility] [address] [place], [place] [address] Archeology Faculty Member: Dewey Wetzel. Eosinophil<0.40Jguzei6.00-0.44[facility] HospitalComment on above:Performed By: #### CDP, CMPX #### [address] [place], [facility]83 Archeology Faculty Member: Dewey Wetzel.Imm.Granulocyte0.05 k/uLNormal0.00-0.30MerProMedica Toledo Hospital HospitalComment on above:Performed By: #### CDP, CMPX #### [address] [place], [facility]83 Archeology Faculty Member: Dewey Wetzel.Neutrophil (Seg)10.66 k/uLHigh1.50-8.10[facility] HospitalComment on above:Performed By: #### CDP, CMPX #### [address] [place], [facility]83 Archeology Faculty Member: Alfredo Best MDBasophils/100 WBC (Bld)0 %Normal0-2MWhite Hospital HospitalComment on above:Performed By: #### CDP, CMPX #### [address] [place], [place] [address]83 Archeology Faculty Member: Alfredo Best MDEosinophils/100 WBC (Bld)0 %Low1-4[facility] HospitalComment on above:Performed By: #### CDP, CMPX #### [address] [place], [facility]83 Archeology Faculty Member: Alfredo Best MDErythrocyte distribution width (RBC) [Ratio]11.7 %Low11.8-14.4[facility] SystemComment on above:Performed By: #### CDP, CMPX #### [address] [place], [place] [address]83 Archeology Faculty Member: Alfredo Best MDHematocrit (Bld) [Volume fraction]48.5 %High 36.3-47.1MMercy Health Fairfield HospitalComment on above:Performed By: #### CDP, CMPX #### [address] [place] [address] Archeology Faculty Member: Alfredo Best MDHemoglobin (Bld) [Mass/Vol]16.7 g/zEOook37.9-15.1 [facility] SystemComment on above:Performed By: #### CDP, CMPX #### [address] [place], [facility]83 Archeology Faculty Member: Alfredo Best MDImmature granulocytes/100 WBC (Bld)0 %Normal0 [facility] on above:Performed By: #### CDP, CMPX #### [address] [place] [address] Archeology Faculty Member: Alfredo Best MDLymphocytes (Bld) [#/Vol]2.23 10*3/uLNormal 1.10-3.70[facility] SystemComasc[facility] on above:Performed By: #### CDP, CMPX #### [address] [place] [address] Archeology Faculty Member: Lili Wetzelmphocytes/100 WBC (Bld)16 %Nzo43-45OkxnnBlanchard Valley Health SystemComment on above:Performed By: #### CDP, CMPX #### [address] [place], [place] [address]83 Archeology Faculty Member: KATHLEEN WetzelCH (RBC) [Entitic mass]30.3 woDjasjn61.2-33.5 [facility] SystemComment on above:Performed By: #### CDP, CMPX #### [address] [place] [address] Archeology Faculty Member: KATHLEEN WetzelCHC (RBC) [Mass/Vol]34.4 g/hMBjbnqc82.4-34.8 [facility] SystemComment on above:Performed By: #### CDP, CMPX #### [address] [place] [address] Archeology Faculty Member: KATHLEEN WetzelCV (RBC) [Entitic vol]88.0 fYJkxigl62.6-102.9 [facility] SystemComment on above:Performed By: #### CDP, CMPX #### [address] [place] [address] Archeology Faculty Member: KATHLEEN Wetzelonocytes (Bld) [#/Vol]0.64 10*3/uLNormal 0.10-1.20[facility] SystemComment on above:Performed By: #### CDP, CMPX #### [address] [place] [address] Archeology Faculty Member: KATHLEEN Wetzelonocytes/100 WBC (Bld)5 %Normal3-12[facility] SystemComment on above:Performed By: #### CDP, CMPX #### [address] [place] [address] Archeology Faculty Member: Alfredo Best MDNeutrophil (Seg)79 %Kjqy90-41CsxxlBlanchard Valley Health SystemComment on above:Performed By: #### CDP, CMPX #### [address] [place] [address] Archeology Faculty Member: Alfredo Best MDNRBC Automated0.0 per 100 WBCNormal0.0[facility] [place] HospitalComment on above:Performed By: #### CDP, CMPX #### [facility] [address] [place] [address] Archeology Faculty Member: Radha Wetzel mean volume (Bld) [Entitic vol]8.6 fL Normal8.1-13.5[facility] HospitalComment on above:Performed By: #### CDP, CMPX #### [facility] [address] [place] [address] Archeology Faculty Member: Stefan Wetzel (Bld) [#/Vol]383 10*3/nBRxttmu237-337 [facility] HospitalComment on above:Performed By: #### CDP, CMPX #### [address] [place], [facility]83 Archeology Faculty Member: PATRICIA Wetzel (Bld) [#/Vol]5.51 10*6/uLHigh3.95-5.11[facility] HospitalComment on above:Performed By: #### CDP, CMPX #### [address] [place] [address] Archeology Faculty Member: POPPY Wetzel (Bld) [#/Vol]13.6 10*3/uLHigh3.5-11.3[facility] [place] HospitalComment on above:Performed By: #### CDP, CMPX #### [address] [place], [facility]83 Archeology Faculty Member: Melvina Wetzel PerformedNOT REPORTEDNormalOhio Valley Surgical Hospital HospitalComment on above:Performed By: #### CDP, CMPX #### [facility] [address] [place] [address] Archeology Faculty Member: Radha Wetzel EstimateNOT REPORTEDNormalOhio Valley Surgical Hospital HospitalComment on above:Performed By: #### CDP, CMPX #### [facility] [address] [place], [place] [address] Archeology Faculty Member: PATRICIA Wetzel morphology finding Nom (Bld)NOT REPORTED [facility] HospitalComment on above:Performed By: #### CDP, CMPX #### [facility] [address] [place], [place] [address] Archeology Faculty Member: POPPY Wetzel MorphologyNOT REPORTEDNormalBlanchard Valley Health SystemComment on above:Performed By: #### CDP, CMPX #### [facility] [address] [place], [place] [address] Archeology Faculty Member: LAN WetzelOVINeida-19, PCRon 50-44-1897DLGL-CoV-2, RapidNot DetectedNot DetectedHomberg Memorial Infirmary on above: Rapid NAAT: The specimen is [...] management decisions. Fact sheet for Healthcare Providers: https://www.fda.gov/media/577096/download Fact sheet for Patients: https://www.fda.gov/media/905597/download Methodology: Isothermal Nucleic Acid Amplification Source.NASOPHARYNGEAL SWABWayne Hospital Metabolic Pr/rfx MGon 03-29-2020(cont.)[facility] HospitalComasc[facility] on above:Result Comment: Average GFR for 30-39 years old: 107 mL/min/1.73sq m Chronic Kidney Disease: <60 mL/min/1.73sq m Kidney failure: <15 mL/min/1.73sq m eGFR calculated using average adult body mass. Additional eGFR calculator available at: http://www.[employer]/multiple_crcl_2012.htmPerformed By: #### CDP, CMPX #### [facility] [address] [place], [place] [address]83 Archeology Faculty Member: Alfredo Best MDAlbumin [Mass/Vol]5.1 g/dLNormal3.5-5.2[facility] [place] HospitalComment on above:Performed By: #### CDP, CMPX #### [address] [place] [address] Archeology Faculty Member: Alfredo Best MDAlbumin/Glob Ratio1.3Ddcrld6.0-2.5[facility] [place] HospitalComment on above:Performed By: #### CDP, CMPX #### [address] [place] [address] Archeology Faculty Member: Meaghan Wetzelline Phos79 U/IJrdyir71-079Sottk [place] HospitalComment on above:Performed By: #### CDP, CMPX #### [address] [place] [address] Archeology Faculty Member: Alfredo Best MDALT [Catalytic activity/Vol]14 U/LNormal5-33[facility] [place] HospitalComment on above:Performed By: #### CDP, CMPX #### [facility] [address] [place] [address] Archeology Faculty Member: Alfredo Best MDAnion gap [Moles/Vol]14 mmol/LNormal9-17[facility] [place] HospitalComment on above:Performed By: #### CDP, CMPX #### [facility] [address] [place], [place] 2[address]483 Archeology Faculty Member: Alfredo Best MDAST [Catalytic activity/Vol]10 U/LNormal<32[facility] [place] HospitalComment on above:Performed By: #### CDP, CMPX #### [facility] [address] [place] [address] Archeology Faculty Member: Alfredo Best MDBilirubin [Mass/Vol]0.49 mg/dLNormal0.3-1.2MWhite Hospital HospitalComment on above:Performed By: #### CDP, CMPX #### [facility] [address] [place] [address] Archeology Faculty Member: Alfredo Best MDBUN/CRE Oqulr30Pppdev8-08Kdqeg [facility] Comment on above:Performed By: #### CDP, CMPX #### [address] [place] [address] Archeology Faculty Member: Alfredo Best MDCalcium [Mass/Vol]10.1 mg/dLNormal8.6-10.4[facility] SystemComment on above:Performed By: #### CDP, CMPX #### [address] [place] [address] Archeology Faculty Member: LAN Wetzelhloride [Moles/Vol]101 mmol/RZxztxz02-033GrfvxBlanchard Valley Health SystemComment on above:Performed By: #### CDP, CMPX #### [address] [place] [address] Archeology Faculty Member: Alfredo Best MDCO2 [Moles/Vol]20 mmol/ITpkyrq29-64Wbjih [facility] HospitalComment on above:Performed By: #### CDP, CMPX #### [address] [place] [address] Archeology Faculty Member: LAN Wetzelreatinine [Mass/Vol]0.59 mg/dLNormal0.50-0.90 [facility] SystemComment on above:Performed By: #### CDP, CMPX #### [address] [place], [place] [address] Archeology Faculty Member: Alfredo Best MDGFR, Amer>60Normal>60[facility]cy [place] [facility] Comment on above:Performed By: #### CDP, CMPX #### [address] [place] [address] Archeology Faculty Member: Alfredo Best MDGFR,non Amer>60Normal>60[facility] [place] HospitalComment on above:Performed By: #### CDP, CMPX #### [address] [place], [place] [address] Archeology Faculty Member: Alfredo Best MDGlucose [Mass/Vol]129 mg/eQRjxd29-05Rfaqz [place] HospitalComment on above:Performed By: #### CDP, CMPX #### [address] [place], [place] [address]783 Archeology Faculty Member: Alfredo Best MDPotassium [Moles/Vol]3.6 mmol/LLow3.7-5.3[facility] [place] HospitalComment on above:Performed By: #### CDP, CMPX #### [address] [place], [place] [address]83 Archeology Faculty Member: Alfredo Best MDProtein [Mass/Vol]8.2 g/dLNormal6.4-8.3[facility] [place] HospitalComment on above:Performed By: #### CDP, CMPX #### [address] [place], [place] [address]383 Archeology Faculty Member: Alfredo Best MDSodium [Moles/Vol]135 mmol/JIafpbs233-049Ujety [place] HospitalComment on above:Performed By: #### CDP, CMPX #### [address] [place] [address] Archeology Faculty Member: NITIN Wetzeltaging:NormalMercy [place] HospitalComment on above:Result Comment: Stage 1: Some kidney damage normal GFR Stage 2: Mild kidney damage GFR 60-89 Stage 3: Moderate kidney damage GFR 30-59 Stage 4: Severe kidney damage GFR 15-29 Stage 5: Severe kidney damage GFR <15 ESRD - chronic treatment by dialysis or transplantPerformed By: #### CDP, CMPX #### [facility] [address] [place] [address] Archeology Faculty Member: Alfredo Best MDUrea nitrogen [Mass/Vol]9 mg/dLNormal6-20[facility] SystemComment on above:Performed By: #### CDP, CMPX #### [facility] [address] [place] [address] Archeology Faculty Member: Alfredo Best [facility]omprehensive Metabolic Panel w/ Reflex to MGon [id number] [Mass/Vol]5.1 g/dL3.5 - 5.2 g/dLMercy Health Springfield [facility]- [place], [place] Albumin/Globulin [Mass ratio]1.6 {ratio}[facility] [place], KYALP [Catalytic activity/Vol]79 U/L35 - 104 U/LMHolzer Health System [place], KYALT [Catalytic activity/Vol] 14 U/L5 - 33 U/LMmarietta osteopathic clinic Health- [place], KYAnion gap [Moles/Vol]14 mmol/L9 - 17 mmol/L [facility]- [place], KYAST [Catalytic activity/Vol]10 U/L<32[facility] [place], [place] Bilirubin Ql (U)0.49 mg/dL0.3 - 1.2 mg/dLMercy Health Springfield [facility]- [place], KYBun/Cre Ratio15 [facility]- [place], KYCalcium [Mass/Vol]10.1 mg/dL8.6 - 10.4 mg/dLPike Community Hospital [place], KYChloride [Moles/Vol]101 mmol/L98 - 107 mmol/LMVeterans Health Administration- [place], KYCO2 [Moles/Vol]20 mmol/L20 - 31 mmol/LMVeterans Health Administration- [place], KYCreatinine [Mass/Vol]0.59 mg/dL0.5 - 0.9 mg/dLMercy Health [facility]- [place], KYGFR >60>60 mL/minHenry County Hospital Health- [place], KYGFR Non->60>60 mL/minAccess Hospital [place], KYGlucose [Mass/Vol]129 mg/yDHwdr19 - 99 mg/dLAccess Hospital [place], KYInterpretation and review of laboratory resultsAbnormalAccess Hospital [place], KYPotassium [Moles/Vol]3.6 mmol/LLow3.7 - 5.3 mmol/LMPremier Health Atrium Medical Center, KYProtein [Mass/Vol]8.2 g/dL6.4 - 8.3 g/dLAccess Hospital [place], KYSodium [Moles/Vol]135 mmol/L135 - 144 mmol/LMPremier Health Atrium Medical Center, KYUrea nitrogen [Mass/Vol]9 mg/dL6 - 20 mg/dLAccess Hospital [place], [place] Drug Scr, Abuse, Uron 24-86-4665Hnnbpyairew(s),UrPositiveAbnormalNEGMercy [place] HospitalComment on above:Performed By: #### CASS #### [address] [place] [address] Archeology Faculty Member: Alfredo Best MDBarbiturate(s),UrNegativeNormalNEGMerProMedica Toledo Hospital HospitalComment on above:Performed By: #### CASS #### [address] [place] [address] Archeology Faculty Member: Alfredo Best MDBenzodiazepine(s)PositiveAbnormalNEGOhio Valley Surgical Hospital HospitalComment on above:Performed By: #### CASS #### [address] [place] [address] Archeology Faculty Member: Alfredo Best MDBuprenorphrine, UrNegativeNormalNEGOhio Valley Surgical Hospital HospitalComment on above:Performed By: #### CASS #### [address] [place] [address] Archeology Faculty Member: ALN Wetzelannabinoid(s),UrPositiveAbnormalNEGMercy [place] HospitalComment on above:Performed By: #### CASS #### [address] [place] [address] Archeology Faculty Member: Alfredo Best MDCocaine MetaboliteNegativeNormalNEGMercy [place] HospitalComment on above:Performed By: #### CASS #### [facility] [address] [place] [address] Archeology Faculty Member: Alfredo Best MDMethadone Ql (U)NegativeNormalNEGMercy [place] HospitalComment on above:Performed By: #### CASS #### [facility] [address] [place] [address] Archeology Faculty Member: KATHLEEN Wetzelethamphetamine, UrPositiveAbnormalNEGMercy [place] HospitalComment on above:Performed By: #### CASS #### [address] [place], [facility]83 Archeology Faculty Member: Alfredo Best MDOpiate(s), UrNegativeNormalNEGMercy [place] HospitalComment on above:Performed By: #### CASS #### [address] [place] [address] Archeology Faculty Member: Alfredo Best MDOxycodone, UrineNegativeNormalNEGMercy [place] HospitalComment on above:Performed By: #### CASS #### [address] [place] [address] Archeology Faculty Member: JUANITA Wetzelhencyclidine, UrNegativeNormalNEGMercy [place] HospitalComment on above:Performed By: #### CASS #### [facility] [address] [place], [place] [address] Archeology Faculty Member: JUANITA Wetzelropoxyphene,UrineNegativeNormalNEGMercy [place] HospitalComment on above:Performed By: #### CASS #### [facility] [address] [place], [place] [address] Archeology Faculty Member: Alfredo Best MDTricyclic antidepressants Screen Ql (U)Negative NormalNEGMercy [place] HospitalComment on above:Result Comment: Drug screen results are to be used for medical purposes only. All positive results are unconfirmed. Testing for employment or legal uses should be sent to a reference laboratory for confirmation.Performed By: #### CASS #### [facility] [address] [place] [address] Dr[address] [place], [place] [address] Archeology Faculty Member: Alfredo Best MDInterpretive InfoNOT REPORTEDNormalMercy [place] HospitalComment on above:Performed By: #### CASS #### [facility] [address] [place] [address] Archeology Faculty Member: KATHLEEN WetzelDMA, UrineNOT REPORTEDNormalNEGMercy [place] HospitalComment on above:Performed By: #### CASS #### [facility] [address] [place] [address] [place] [address] Archeology Faculty Member: Alfredo Best, MDDrug screen multi urineon 50-48-4630Bvrryowkaaj Screen, UrPositiveAbnormalNEGATIVEMercy Health- [place], KYBarbiturate Screen, Ur NegativeNEGATIVEMercy Health- [place], KYBenzodiazepine Screen, UrinePositiveAbnormal NEGATIVEMercy Health- [place], KYBuprenorphine UrineNegativeNEGATIVEMercy Health- [place], KYCannabinoid Scrn, UrPositiveAbnormalNEGATIVEMercy Health- [place], KYCocaine Metabolite, UrineNegativeNEGATIVEMercy Health- [place], KYInterpretation and review of laboratory resultsAbnormalMercy Health- [place], KYMDMA, UrineNOT REPORTEDNEGATIVE [facility]- [place], KYMethadone Screen, UrineNegativeNEGATIVEMercy Health- [place], [place] Methamphetamine, UrinePositiveAbnormalNEGATIVEMercy Health- [place], KYOpiates, Urine NegativeNEGATIVEMercy Health- [place], KYOxycodone Screen, UrNegativeNEGATIVEMercy Health- [place], KYPhencyclidine, UrineNegativeNEGATIVEMercy Health- [place], [place] Propoxyphene, UrineNegativeNEGATIVEMercy Health- [place], KYTest InformationNOT REPORTEDMercy Health- [place], KYTricyclic Antidepressants, UrineNegativeNEGATIVE [facility] [place], KYComment on above:Drug screen results are to be used for medical purposes only. All positive results are unconfirmed. Testing for employment or legal uses should be sent to a reference laboratory for confirmation. EKG 12 Leadon [id number] Yjuw11SRMVlvzl Health- [place], KYP Hydt48vashqiuJklsw Health- [place], KYP-R Aisxpwyg790 [facility]- [place], KYQ-T Ygpcaipj145 [facility]- [place], KYQRS Tvcbtxic44 [facility]- [place], KYQTc Calculation (zett)464 [facility]- [place], KYR Kecu30trqigxtTgfnw Health- [place], KYT Kond95lhygttcAvawx Health- [place], KYVentricular Udeb99SBNTqgau Health- [place], KYEdi, Mhpn Incoming Ekg Results From [facility] - 03/29/2020 9:25 PM EDT Normal sinus rhythm Normal ECG When compared with ECG of 01-APR-2012 19:31, Nonspecific T wave abnormality now evident in Anterior leads Confirmed by CYRUS TOVAR ([id number]) on 03/29/2020 9:25:21 PMAccess Hospital [place], [place] Normal sinus rhythm Normal ECG When compared with ECG of 01-APR-2012 19:31, Nonspecific T wave abnormality now evident in Anterior leads Confirmed by CYRUS TOVAR ([id number]) on 03/29/2020 9:25:21 PMPike [facility] [place], KYHCG, Quanton [id number], Quant<1Normal<5[facility] Hospitalcy Griffin HospitalComment on above:Result Comment: Non-preg premeno <=5 Postmeno <=8 Male <=3 If HCG results do not concur with clinical observations, additional testing to confirm results is recommended. Elevated results not associated with may be found in patients with other diseases such as tumors of the germ cells (testis, ovaries, etc.), bladder, pancreas, stomach, lungs, and liver.Performed By: #### RAZ, UA #### [facility] [address] [place] [address] Archeology Faculty Member: SUNDEEP WetzelG, Quantitative, Pregnancyon [id number] Quant<1<5 IU/LMercShenandoah Memorial Hospital- [place], KYComment on above: Non-preg premeno <=5 Postmeno <=8 Male <=3 If HCG results do not concur with clinical observations, additional testing to confirm results is recommended. Elevated results not associated with may be found in patients with other diseases such as tumors of the germ cells (testis, ovaries, etc.), bladder, pancreas, stomach, lungs, and liver. Metabolic Panelon [id number]/1.73 sq M predicted among non-blacks MDRD (S/P/Bld) [Vol rate/Area][facility] [place], KYComment on above:Stage 1: Some kidney damage normal GFR Stage 2: Mild kidney damage GFR 60-89 Stage 3: Moderate kidney damage GFR 30-59 Stage 4: Severe kidney damage GFR 15-29 Stage 5: Severe kidney damage GFR <15 ESRD - chronic treatment by dialysis or transplant Average GFR for 30-39 years old: 107 mL/min/1.73sq m Chronic Kidney Disease: <60 mL/min/1.73sq m Kidney failure: <15 mL/min/1.73sq m eGFR calculated using average adult body mass. Additional eGFR calculator available at: http://www.[employer]/multiple_crcl_2012.htm Microscopic Urinalysison 97-73-8900Jasghansh, UATRACEAbnormNorwalk Memorial Hospital, KYBacteria, UA1+AbnormalNonTrumbull Regional Medical Center, KYCasts UANOT REPORTED/LPF [facility] [place], KYCrystals, UANOT REPORTEDNone /HPFPike Community Hospital [place], [place] Epithelial Cells UA10 TO 20[facility] [place], KYInterpretation and review of laboratory resultsAbnormProMedica [facility] [place], KYMucus, UANOT REPORTEDNonLicking [facility] [place], KYOther Observations UANOT REPORTEDNOT REQ.[facility] [place], KYRBC (U) [#/Vol]2 TO 5[facility] [place], KYRenal Epithelial, UANOT REPORTED0 /HPFMer Health- [place], KYTrichomonas, UANOT REPORTEDNoneMeMercy Health [facility] Hospital [place], KYWBC, UA5 TO 10 [facility] [place], KYYeast, UANOT REPORTEDNoneMeSelect [facility]- [place], [place]-[facility] [place], KYOtheron [id number]-CoV-2MPremier Health Atrium Medical Center, NVSVYA-XbD-8xs 03-29-2020 SARS-CoV-2 (COVID-19) RNA HARJINDER+probe Ql (Unsp spec)[facility] Comment on above:Performed By: #### COVID #### [facility] [address] [place] [address] Archeology Faculty Member: OLIVIER WetzelCoV-2 (COVID-19) RNA HARJINDER+probe Ql (Unsp spec)Not detectedNormalNOTDEKettering Health Behavioral Medical CenterComment on above:Result Comment: Rapid NAAT: The specimen is NEGATIVE [...] management decisions. Fact sheet for Healthcare Providers: https://www.fda.gov/media/259217/download Fact sheet for Patients: https://www.fda.gov/media/340654/download Methodology: Isothermal Nucleic Acid AmplificationPerformed By: #### COVID #### [facility] [address] [place] [address] Archeology Faculty Member: OLIVIER WetzelCoV-2 (COVID-19) RNA HARJINDER+probe Ql (Unsp spec)[facility] HospitalComment on above:Performed By: #### COVID #### [facility] [address] [place] [address] Archeology Faculty Member: Alferdo Nasir, MHYKNE-HxH-2 (COVID-19) RNA HARJINDER+probe Ql (Unsp spec).NASOPHARYNGEAL SWABNormalOhio Valley Surgical Hospital HospitalComment on above:Performed By: #### COVID #### [facility] [address] [place] [address] Archeology Faculty Member: NITIN Wetzelalicylateon 52-46-5977Kmmiippvec<3Yyd6-96Zxjts [facility] HospitalComment on above:Performed By: #### UMMARCO AO, UA #### [facility] [address] [place] [address] Archeology Faculty Member: Alfredo Best MDInterpretation and review of laboratory results AbnormalMercy Health [facility]- [place], KYSalicylate Lvl<1Low3 - 10 mg/dLMercy Health Springfield Regional [facility] Center- [place], [place] Urinalysis, Routineon [id number] Acid,Ur2+AbnormalNEGBlanchard Valley Health SystemComment on above:Performed By: #### UMMARCO AO, UA #### [facility] [address] [place] [address] [place] [address] Archeology Faculty Member: Alfredo Best MDBilirubin, SemiQt,UrNegativeNormalNEGBlanchard Valley Health SystemComment on above:Performed By: #### UMICAO, UA #### [address] [place] [address] Archeology Faculty Member: LAN Wetzelolor (U)YELLOWNormalYPremier Health [facility] Hospital Comment on above:Performed By: #### UMICAO, UA #### [facility] [address] [place] [address] Archeology Faculty Member: Alfredo Best MDGlucose Ql (U)NegativeNormalNEGBlanchard Valley Health SystemComment on above:Performed By: #### UMICAO, UA #### [facility] [address] [place], [place] [address] Archeology Faculty Member: Alfredo Best MDHemoglobin, UrTRACEAbnormalNEGBlanchard [facility] Health SystemComment on above:Performed By: #### UMICAO, UA #### [facility] [address] [place] [address] Archeology Faculty Member: Alfredo Best MDLeukocyte esterase Test strip Ql (U)SMALLAbnormal NEGBlanchard Valley Health SystemComment on above:Performed By: #### UMICAO, UA #### [facility] [address] [place] [address] Archeology Faculty Member: Alfredo Best MDNitrite,UrNegativeOhioHealth Dublin Methodist Hospital Comment on above:Performed By: #### UMICAO, UA #### [facility] [address] [place] [address] Archeology Faculty Member: Alfredo Best [facility],Ur6.9Gbxfca5.0-9.0[facility] Health SystemComment on above:Performed By: #### UMICAO, UA #### [facility] [address] [place] [address] Archeology Faculty Member: JUANITA Wetzelrotein Ql (U)NegativeNormalNEGBlanchard Valley Health SystemComment on above:Performed By: #### UMICAO, UA #### [facility] [address] [place] [address] Archeology Faculty Member: NITIN Wetzelpec. [place],Ur1.548Ncwksm4.010-1.020[facility] Valley Health SystemComment on above:Performed By: #### UMICAO, UA #### [facility] [address] [place] [address] Archeology Faculty Member: VIRGILIO WetzelurbidityCLEARNoalCMetroHealth Parma Medical Center Comment on above:Performed By: #### UMICAO, UA #### [facility] [address] [place] [address] Archeology Faculty Member: Alfredo Nasir, MDUrobilinogen,UrNormalNormalNORMMercy [place] HospitalComment on above:Performed By: #### RAZ UA #### [facility] [address] [place] [address] Archeology Faculty Member: LAN WetzelomchadNOT REPORTEDMercy Health [facility]sburg Hospital Comment on above:Performed By: #### RAZ, UA #### [facility] [address] [place] [address] Archeology Faculty Member: Alfredo Best MDUrinalysis, reflex to microscopicon 03-29-2020 Bilirubin UrineNegativeNEGATIVEMercy Health- [place], KYColor, UAYELLOWYELLOWMercy Health- [place], KYGlucose, UrNegativeNEGATIVEMercy Health- [place], KYInterpretation and review of laboratory resultsAbnormalMercy Health- [place], KYKetones Ql (U)2+Abnormal NEGATIVEMercy Health- [place], KYLeukocyte esterase Test strip Ql (U)SMALLAbnormal NEGATIVEMercy Health- [place], KYNitrite, UrineNegativeNEGATIVEMercy Health- [place], [place] pH, UA6.5[facility]- [place], KYProtein (U) [Mass/Vol]NegativeNEGATIVEMercy Health- [place], KYSpecific [place], UA1.010[facility]- [place], KYTurbidity UACLEARCLEARMercy Health- [place], KYUrinalysis CommentsNOT REPORTEDMercy Health- [place], KYUrine HgbTRACE AbnormalNEGATIVEMercy Health- [place], KYUrobilinogen, UrineNormalNormalMercy Health- [place], KYUrinalysis,Microon 03-29-2020-----NormalMercy Rollinsford HospitalComment on above:Performed By: #### RAZ, UA #### [facility] [address] [place] [address] [place] [address] Archeology Faculty Member: Alberto Wetzel sediment LM Ql (Urine sed)TRACEAbnormal NONEOhio Valley Surgical Hospital HospitalComment on above:Performed By: #### RAZ, UA #### [facility] [address] [place] [address] [place] [address] Archeology Faculty Member: Alfredo Best MDBacteria1+AbnormalNONEMeRockville General Hospital Comment on above:Performed By: #### UMICAO, UA #### [facility] [address] [place] [address] Archeology Faculty Member: Alfredo Best MDEpithelial cells LM Ql (Urine sed)10 TO 20Normal 0-25[facility] SystemComment on above:Performed By: #### UMICAO, UA #### [facility] [address] [place] [address] Archeology Faculty Member: Lino Wetzel RBC's2 TO 1Ivgman5-0MwvtpMercy Health Fairfield Hospital Comment on above:Performed By: #### UMMARCO AO, UA #### [facility] [address] [place] [address] Archeology Faculty Member: Lino Wetzel WBC's5 TO 85Jldckr8-5ZnfyfBlanchard Valley Health System Comment on above:Performed By: #### UMMARCO AO, UA #### [facility] [address] [place] [address] Archeology Faculty Member: LAN WetzelastsNOT REPORTEDMercy Health Perrysburg Hospital Comment on above:Performed By: #### UMMARCO AO, UA #### [facility] [address] [place] [address] Archeology Faculty Member: LAN Wetzelrystals LM Nom (Urine sed)NOT REPORTEDNormalNONE [facility] SystemComment on above:Performed By: #### UMICAO, UA #### [facility] [address] [place], [place] [address] Archeology Faculty Member: Alfredo Best MDEpithelial, RenalNOT CANEYHKCDnwugq6HsrsnBlanchard Valley Health SystemComment on above:Performed By: #### UMICAO, UA #### [facility] [address] [place] [address] Archeology Faculty Member: Aubree Wetzelus StrandsNOT REPORTEDNormalNONEMey Rollinsford HospitalComment on above:Performed By: #### UMICAO, UA #### [facility] [address] [place] [address] Archeology Faculty Member: Alfredo Best MDOther ObservationsNOT REPORTEDNormalNREQMercy [place] HospitalComment on above:Performed By: #### UMICAO, UA #### [facility] [address] [place] [address] Archeology Faculty Member: Zara WetzelhomonasNOT REPORTEDNormalNONEMey [place] HospitalComment on above:Performed By: #### UMICAO, UA #### [facility] [address] [place], [place] [address] Archeology Faculty Member: Melina WetzelastJUNI REPORTEDNormalNONEMeMerit Health Central Hospital Comment on above:Performed By: #### UMICAO, UA #### [facility] [address] [place] [address] Archeology Faculty Member: VIRGILIO Wetzel CHEST PORTABLEon [id number] CHEST PORTABLE EXAMINATION: ONE XRAY VIEW OF THE CHEST 03/29/2020 5:23 pm COMPARISON: October 21, 2018 HISTORY: ORDERING SYSTEM PROVIDED HISTORY: medical clearance TECHNOLOGIST PROVIDED HISTORY: medical clearance FINDINGS: Lungs are clear. No cardiomegaly. No pulmonary edema. IMPRESSION: Negative portable chest. Interpreted by: Chandan Marquez MD Signed by: Chandan Marquez MD 03/29/20 Final resultNormalMercy Roll[place]ford HospitalEXAMINATION: ONE XRAY VIEW OF THE CHEST 03/29/2020 5:23 pm COMPARISON: October 21, 2018 HISTORY: ORDERING SYSTEM PROVIDED HISTORY: medical clearance TECHNOLOGIST PROVIDED HISTORY: medical clearance FINDINGS: Lungs are clear. No cardiomegaly. No pulmonary edema.[facility]- [place], [place], Jeff Incoming Radiant Results From [employer] - 03/29/2020 5:35 PM EDT EXAMINATION: ONE XRAY VIEW OF THE CHEST 03/29/2020 5:23 pm COMPARISON: October 21, 2018 HISTORY: ORDERING SYSTEM PROVIDED HISTORY: medical clearance TECHNOLOGIST PROVIDED HISTORY: medical clearance FINDINGS: Lungs are clear. No cardiomegaly. No pulmonary edema. IMPRESSION: Negative portable chest. [facility] [place], KYNegative portable chest.[facility], RICBC Auto Differentialon [id number] (Bld) [#/Vol]0.05 10*3/[facility], [place] Basophils/100 WBC (Bld)1 %0 - 2 %[facility], RIDifferential TypeNOT REPORTEDAccess Hospital [place], RIEosinophils (Bld) [#/Vol]10*3/[facility], [place] Eosinophils/100 WBC (Bld)0 %Low1 - 4 %[place], KYErythrocyte distribution width (RBC) [Ratio]11.9 %11.8 - 14.4 %[facility], [place] Hematocrit (Bld) [Volume fraction]44.3 %36.3 - 47.1 %[facility], [place] Hemoglobin (Bld) [Mass/Vol]15.4 g/nUEtdu27.9 - 15.1 g/dLAccess Hospital [place], [place] Immature granulocytes (Bld) [#/Vol]0 %0[facility], RIImmature granulocytes (Bld) [#/Vol]10*3/[facility], RIInterpretation and review of laboratory resultsAbnormalAccess Hospital [place], RILymphocytes (Bld) [#/Vol]1.73 10*3/[facility], RILymphocytes/100 WBC (Bld)20 %Low24 - 43 %[facility], RIMCH (RBC) [Entitic mass]31.2 pg25.2 - 33.5 pgAccess Hospital [place], RIMCHC (RBC) [Mass/Vol]34.8 g/dL28.4 - 34.8 g/dLAccess Hospital [place], RIMCV (RBC) [Entitic vol] 89.9 fL82.6 - 102.9 fLAccess Hospital [place], CLAYTONMonocytes (Bld) [#/Vol]0.43 10*3/uL [facility], CLAYTONMonocytes/100 WBC (Bld)5 %3 - 12 %[facility], [place] Platelet mean volume (Bld) [Entitic vol]8.8 fL8.1 - 13.5 fLTar Heel, [place] Platelets (Bld) [#/Vol]294 10*3/uLAccess Hospital [place], RIPlatelets (Bld) [#/Vol]NOT REPORTEDAccess [facility] [place], RIRBC (Bld) [#/Vol]4.93 10*6/uL3.95 - 5.11 m/[facility], RIRB morphology finding Nom (Bld)NOT REPORTEDTar [place], [place] Segmented neutrophils/100 WBC (Bld)74 %High36 - 65 %[facility], CLAYTONSegs Absolute6.41[facility], RIWBC (Bld) [#/Vol]8.6 10*3/uLAccess Hospital [place], [place] WBC (Bld) [#/Vol]0.0 10*3/uL0.0 per 100 WBCAccess Hospital [place], RIWBC MorphologyNOT REPORTEDAccess [facility] [place], RICBC with Diffon [id number]. Basophil0.05 k/uL Normal0.00-0.20[facility] HospitalComment on above:Performed By: #### CDP, HCG, CMPX #### [address] [place] [address] Archeology Faculty Member: Dewey Wetzel. Eosinophil<0.38Skxlih1.00-0.44[facility] HospitalComment on above:Performed By: #### CDP, HCG, CMPX #### [address] [place] [address] Archeology Faculty Member: Dewey eWtzel.Imm.Granulocyte<0.15Sjyant8.00-0.30[facility] HospitalComment on above:Performed By: #### CDP, HCG, CMPX #### [address] [place], [facility] Archeology Faculty Member: Dewey Wetzel.Neutrophil (Seg)6.41 k/uLNormal1.50-8.10[facility] Health SystemComment on above:Performed By: #### CDP, HCG, CMPX #### [address] [place], [place] [address] Archeology Faculty Member: Alfredo Best MDBasophils/100 WBC (Bld)1 %Normal0-2MWhite Hospital HospitalComment on above:Performed By: #### CDP, HCG, CMPX #### [address] [place] [address] Archeology Faculty Member: Alfredo Best MDEosinophils/100 WBC (Bld)0 %Low1-4[facility] HospitalComment on above:Performed By: #### CDP, HCG, CMPX #### [address] [place], [place] [address] Archeology Faculty Member: Alfredo Best MDErythrocyte distribution width (RBC) [Ratio]11.9 %Riyusd83.8-14.4[facility] SystemComment on above:Performed By: #### CDP, HCG, CMPX #### [address] [place] [address] Archeology Faculty Member: Alfredo Best MDHematocrit (Bld) [Volume fraction]44.3 %Normal 36.3-47.1MMercy Health Fairfield HospitalComment on above:Performed By: #### CDP, HCG, CMPX #### [address] [place] [address] Archeology Faculty Member: Alfredo Best MDHemoglobin (Bld) [Mass/Vol]15.4 g/bSShgn54.9-15.1 [facility] SystemComment on above:Performed By: #### CDP, HCG, CMPX #### [address] [place] [facility]83 Archeology Faculty Member: Claudy Wetzelmature granulocytes/100 WBC (Bld)0 %Normal0 [facility] SystemComment on above:Performed By: #### CDP, HCG, CMPX #### [address] [place] [id number] Archeology Faculty Member: Lili Wetzelmphocytes (Bld) [#/Vol]1.73 10*3/uLNormal 1.10-3.70[facility] HospitalComment on above:Performed By: #### CDP, HCG, CMPX #### [address] [place] [place] [address] Archeology Faculty Member: Lili Wetzelmphocytes/100 WBC (Bld)20 %Ish24-31NpsbvBlanchard Valley Health SystemComment on above:Performed By: #### CDP, HCG, CMPX #### [address] [place], [facility]83 Archeology Faculty Member: FREDA Wetzel (RBC) [Entitic mass]31.2 swDvhlag96.2-33.5 [facility] SystemComment on above:Performed By: #### CDP, HCG, CMPX #### [address] [place] [address] Archeology Faculty Member: FREDA WetzelC (RBC) [Mass/Vol]34.8 g/eNHwixmd19.4-34.8 [facility] HospitalComment on above:Performed By: #### CDP, HCG, CMPX #### [address] [place] [address] Archeology Faculty Member: ROSIE Wetzel (RBC) [Entitic vol]89.9 jCGjbpty69.6-102.9 [facility] HospitalComment on above:Performed By: #### CDP, HCG, CMPX #### [address] [place], [facility]83 Archeology Faculty Member: KATHLEEN Wetzelonocytes (Bld) [#/Vol]0.43 10*3/uLNormal 0.10-1.20MerProMedica Toledo Hospital HospitalComment on above:Performed By: #### CDP, HCG, CMPX #### [address] [place], [facility]83 Archeology Faculty Member: KATHLEEN Wetzelonocytes/100 WBC (Bld)5 %Normal3-12[facility] HospitalComment on above:Performed By: #### CDP, HCG, CMPX #### [address] [place], [place] [address] Archeology Faculty Member: Ham Wetzelutrophil (Seg)74 %Xypy57-41Wgyjd [facility] HospitalComment on above:Performed By: #### CDP, HCG, CMPX #### [address] [place], [place] [address] Archeology Faculty Member: Alfredo Best MDNRBC Automated0.0 per 100 WBCNormal0.0[facility] HospitalComment on above:Performed By: #### CDP, HCG, CMPX #### [address] [place], [facility]83 Archeology Faculty Member: Radha Wetzel mean volume (Bld) [Entitic vol]8.8 fL Normal8.1-13.5MerDay Kimball HospitalComment on above:Performed By: #### CDP, HCG, CMPX #### [address] [place] [address] Archeology Faculty Member: Luis Wetzeltemaria g (Bld) [#/Vol]294 10*3/oXSyipsg211-767 [facility] HospitalComment on above:Performed By: #### CDP, HCG, CMPX #### [address] [place] [address] Archeology Faculty Member: PATRICIA Wetzel (Bld) [#/Vol]4.93 10*6/uLNormal3.95-5.11[facility] [place] HospitalComment on above:Performed By: #### CDP, HCG, CMPX #### [address] [place] [address] Archeology Faculty Member: POPPY Wetzel (Bld) [#/Vol]8.6 10*3/uLNormal3.5-11.3Mer[facility] [place] HospitalComment on above:Performed By: #### CDP, HCG, CMPX #### [address] [place] [address] Archeology Faculty Member: Melvina Wetzel PerformedNOT REPORTEDNormalMercy [place] HospitalComment on above:Performed By: #### CDP, HCG, CMPX #### [address] [place] [address] Archeology Faculty Member: Radha Wetzel EstimateNOT REPORTEDNormalMercy [place] HospitalComment on above:Performed By: #### CDP, HCG, CMPX #### [address] [place] [address] Archeology Faculty Member: PATRICIA Wetzel morphology finding Nom (Bld)NOT REPORTED NormalMercy [place] HospitalComment on above:Performed By: #### CDP, HCG, CMPX #### [address] [place] [address] Archeology Faculty Member: POPPY Wetzel MorphologyNOT REPORTEDNormalMercy [place] HospitalComment on above:Performed By: #### CDP, HCG, CMPX #### [address] [place] [address] Archeology Faculty Member: Alfredo Best, MDCT ABDOMEN PELVIS W IV CONTRASTon [id number] ABDOMEN PELVIS W IV CONTRASTEXAMINATION: CT OF THE ABDOMEN AND PELVIS WITH [...] and urinary bladder are within normal limits. Peritoneum/Retroperitoneum: No abdominal lymphadenopathy or ascites. Bones/Soft Tissues: [...] Signed by: Boubacar Phan MD 02/23/20 Final resultNormalAultman Hospitalp Metabolic Pr/rfx MGon 02-23-2020 (cont.)[facility] HospitalComascension [facility] on above:Result Comment: Average GFR for 30-39 years old: 107 mL/min/1.73sq m Chronic Kidney Disease: <60 mL/min/1.73sq m Kidney failure: <15 mL/min/1.73sq m eGFR calculated using average adult body mass. Additional eGFR calculator available at: http://www.[employer]/multiple_crcl_2012.htmPerformed By: #### UMICAO, UA #### [facility] [address] [place] [address] Archeology Faculty Member: Alfredo Best MDAlbumin [Mass/Vol]4.4 g/dLNormal3.5-5.2[facility] [place] HospitalComment on above:Performed By: #### UMICAO, UA #### [facility] [address] [place] [address] Archeology Faculty Member: Alfredo Best MDAlbumin/Glob Ratio1.8Qzxydj5.0-2.5[facility] [place] HospitalComment on above:Performed By: #### RAZ, UA #### [facility] [address] [place] [address] Archeology Faculty Member: Deja Wetzelkaline Phos71 U/LEgzasf41-915Onzwg [place] HospitalComment on above:Performed By: #### RAZ, UA #### [facility] [address] [place] [address] Archeology Faculty Member: Alfredo Best MDALT [Catalytic activity/Vol]12 U/LNormal5-33[facility] [place] HospitalComment on above:Performed By: #### NATALIEO, UA #### [address] [place] [address] Archeology Faculty Member: Alfredo Best MDAnion gap [Moles/Vol]12 mmol/LNormal9-17Mer[facility] [place] HospitalComment on above:Performed By: #### ЕКАТЕРИНАICAO, UA #### [facility] [address] [place] [address] Archeology Faculty Member: Alfredo Best MDAST [Catalytic activity/Vol]15 U/LNormal<32[facility] [place] HospitalComment on above:Performed By: #### UMICAO, UA #### [facility] [address] [place], [place] [address] Archeology Faculty Member: Alfredo Best MDBilirubin [Mass/Vol]0.31 mg/dLNormal0.3-1.2[facility] [place] HospitalComment on above:Performed By: #### RAZ, UA #### [facility] [address] [place] [address] Archeology Faculty Member: Alfredo Best MDBUN/CRE Zamax03Kebodj5-33Jkioi [facility] Comment on above:Performed By: #### RAZ, UA #### [facility] [address] [place] [address] Archeology Faculty Member: LAN Wetzelalcium [Mass/Vol]9.3 mg/dLNormal8.6-10.4[facility] SystemComment on above:Performed By: #### RAZ UA #### [address] [place], [place] [address] Archeology Faculty Member: LAN Wetzelhloride [Moles/Vol]103 mmol/AYvxrul61-778EsoloBlanchard Valley Health SystemComment on above:Performed By: #### RAZ UA #### [address] [place] [address] Archeology Faculty Member: Alfredo Best MDCO2 [Moles/Vol]22 mmol/POfkvhk33-93SkcreBlanchard Valley Health SystemComment on above:Performed By: #### RAZ UA #### [facility] [address] [place] [address] Archeology Faculty Member: LAN Wetzelreatinine [Mass/Vol]0.68 mg/dLNormal0.50-0.90 [facility] SystemComment on above:Performed By: #### RAZ, UA #### [facility] [address] [place], [place] [address] Archeology Faculty Member: Alfredo Best MDGFR, Amer>60Normal>60[facility] Comment on above:Performed By: #### RAZ, UA #### [facility] [address] [place] [address] [place], [place] [address] Archeology Faculty Member: Alfredo Best MDGFR,non Amer>60Normal>60[facility] [place] HospitalComment on above:Performed By: #### UMMARCO AO, UA #### [address] [place], [place] [address] Archeology Faculty Member: Alfredo Best MDGlucose [Mass/Vol]193 mg/lZPbcp95-35Ghyjf [facility] HospitalComment on above:Performed By: #### NATALIEO, UA #### [address] [place], [place] [address] Archeology Faculty Member: Alfredo Best MDPotassium [Moles/Vol]3.9 mmol/LNormal3.7-5.3[facility] [place] HospitalComment on above:Performed By: #### RAZ, UA #### [address] [place], [place] [address] Archeology Faculty Member: Alfredo Best MDProtein [Mass/Vol]7.4 g/dLNormal6.4-8.3Mcleveland clinic euclid hospitaly [place] HospitalComment on above:Performed By: #### UMMARCO AO, UA #### [address] [place], [place] [address] Archeology Faculty Member: NITIN Wetzelodium [Moles/Vol]137 mmol/OVdntjd828-812Pdjwi [facility] HospitalComment on above:Performed By: #### NATALIEO, UA #### [address] [place] [address] Archeology Faculty Member: NITIN Wetzeltaging:NormalOhio Valley Surgical Hospital HospitalComment on above:Result Comment: Stage 1: Some kidney damage normal GFR Stage 2: Mild kidney damage GFR 60-89 Stage 3: Moderate kidney damage GFR 30-59 Stage 4: Severe kidney damage GFR 15-29 Stage 5: Severe kidney damage GFR <15 ESRD - chronic treatment by dialysis or transplantPerformed By: #### RAZ, UA #### [facility] [address] [place] [address] Archeology Faculty Member: Alfredo Best MDUrea nitrogen [Mass/Vol]12 mg/dLNormal6-20[facility] SystemComment on above:Performed By: #### RAZ, UA #### [facility] [address] [place] [address] Archeology Faculty Member: Alfredo Best [facility] SHAW[facility]EEomprehensive Metabolic Panel w/ Reflex to MGon [id number] [Mass/Vol]4.4 g/dL3.5 - 5.2 g/dLMercy Health [facility]- [place], [place] Albumin/Globulin [Mass ratio]1.5 {ratio}[facility] [place], KYALP [Catalytic activity/Vol]71 U/L35 - 104 U/LMVeterans Health Administration- [place], KYALT [Catalytic activity/Vol] 12 U/L5 - 33 U/[facility]- [place], KYAnion gap [Moles/Vol]12 mmol/L9 - 17 mmol/L [facility], KYAST [Catalytic activity/Vol]15 U/L<32[facility]- [place], [place] Bilirubin Ql (U)0.31 mg/dL0.3 - 1.2 mg/dLMercy Health Springfield [facility]- [place], KYBun/Cre Ratio18 [facility]- [place], KYCalcium [Mass/Vol]9.3 mg/dL8.6 - 10.4 mg/dLPike Community Hospital [place], KYChloride [Moles/Vol]103 mmol/L98 - 107 mmol/LMmarietta osteopathic clinic Health- [place], KYCO2 [Moles/Vol]22 mmol/L20 - 31 mmol/LMVeterans Health Administration- [place], KYCreatinine [Mass/Vol]0.68 mg/dL0.5 - 0.9 mg/dLMercy Health [facility]- [place], KYGFR >60>60 mL/minMer Health- [place], KYGFR Non->60>60 mL/minHenry County Hospital Health- [place], KYGlucose [Mass/Vol]193 mg/gTXvma25 - 99 mg/dLMercy Health- [place], KYInterpretation and review of laboratory resultsAbnormalAccess Hospital [place], RIPotassium [Moles/Vol]3.9 mmol/L3.7 - 5.3 mmol/LMPremier Health Atrium Medical Center, RIProtein [Mass/Vol]7.4 g/dL6.4 - 8.3 g/dLAccess Hospital [place], RISodium [Moles/Vol]137 mmol/L135 - 144 mmol/LMPremier Health Atrium Medical Center, RIUrea nitrogen [Mass/Vol]12 mg/dL6 - 20 mg/dLAccess Hospital [place], [place] HCG Qualitative, Serumon [id number] QualNegativeNEGATIVETar Heel, [place] Comment on above:Specimens with hCG levels near the threshold of the test (25 mIU/mL) may give a negative or indeterminate result. In such cases, another test should be performed with a new specimen in 48-72 hours. If early is suspected clinically in this setting, correlation with quantitative serum b-hCG level is suggested. [facility] has confirmed the use of plasma for this test. This has not been cleared or approved by the U.S. Food and Drug Administration. The FDA has determined that such clearance is not necessary. HCG Screen, Bloodon [id number] Screen, BloodNegativeNormalNEGBlanchard Valley Health SystemComment on above:Result Comment: Specimens with hCG levels near the threshold of the test (25 mIU/mL) may give a negative or indeterminate result. In such cases, another test should be performed with a new specimen in 48-72 hours. If early is suspected clinically in this setting, correlation with quantitative serum b-hCG level is suggested. [facility] has confirmed the use of plasma for this test. This has not been cleared or approved by the U.S. Food and Drug Administration. The FDA has determined that such clearance is not necessary.Performed By: #### EMMA, HCG, CMPX #### [facility] [address] [place] [address] Archeology Faculty Member: Alfredo Best MDLactic Acidon [id number] [Moles/Vol]1.2 mmol/LNormal0.5-2.2Mcleveland clinic eucl[facility] hospitaly Griffin HospitalComment on above:Performed By: #### CDP, CMPX #### [facility] [address] [place] [address] Archeology Faculty Member: Alfredo Best MDLactic Acid,Whole BlNOT REPORTEDNormal0.7-2.1 [facility] SystemComment on above:Performed By: #### CDP, CMPX #### [facility] [address] [address] Archeology Faculty Member: Alfredo Best MDLactic acid, plasmaon [id number] [Moles/Vol]1.2 mmol/L0.5 - 2.2 mmol/[facility], KYLactic Acid, Whole BloodNOT REPORTED0.7 - 2.1 mmol/[facility], KYMetabolic Panelon [id number]/1.73 sq M predicted among non-blacks MDRD (S/P/Bld) [Vol rate/Area][facility] [place], KYComment on above:Average GFR for 30-39 years old: 107 mL/min/1.73sq m Chronic Kidney Disease: <60 mL/min/1.73sq m Kidney failure: <15 mL/min/1.73sq m eGFR calculated using average adult body mass. Additional eGFR calculator available at: http://www.ReaMetrix/multiple_crcl_2012.htm Stage 1: Some kidney damage normal GFR Stage 2: Mild kidney damage GFR 60-89 Stage 3: Moderate kidney damage GFR 30-59 Stage 4: Severe kidney damage GFR 15-29 Stage 5: Severe kidney damage GFR <15 ESRD - chronic treatment by dialysis or transplant Microscopic Urinalysison [id number], UANOT REPORTEDNonTrumbull Regional Medical Center, KYBacteria, UATRACEAbnormalNonTrumbull Regional Medical Center, KYCasts UANOT REPORTED/LPF [facility] [place], KYCrystals, UANOT REPORTEDNone /HPFAccess Hospital [place], [place] Epithelial Cells UA10 TO 20[facility] [place], KYInterpretation and review of laboratory resultsAbnormUC Health, KYMucus, UANOT REPORTEDNoneMercy Health- [place], KYOther Observations UANOT REPORTEDNOT REQ.[facility]- [place], KYRBC (U) [#/Vol]0 TO 2[facility]- [place], KYRenal Epithelial, UANOT REPORTED0 /HPFMercy Health- [place], KYTrichomonas, UANOT REPORTEDNoneMeselect medical [facility]- [place], KYWBC, UA2 TO 5 MercShenandoah [facility]- [place], KYYeast, UANOT REPORTEDNoneMeselect medical [facility]- [place], [place]-[facility] [place], KYUrinalysis, Routineon 08-18-4312Hnfunjuehbw Acid,UrNegativeNormalNEGMercy Rollinsford HospitalComment on above:Performed By: #### UMMARCO AO, UA #### [facility] [address] [place] [address] Archeology Faculty Member: Alfredo Best MDBilirubin, SemiQt,UrNegativeNormalNEGMercy Rollinsford HospitalComment on above:Performed By: #### UMMARCO AO, UA #### [facility] [address] [place] [address] Archeology Faculty Member: Alfredo Best [facility] SHAWNEEolor (U)YELLOWNormalYPremier Health [facility] Comment on above:Performed By: #### UMICAO, UA #### [facility] [address] [place] [address] Archeology Faculty Member: Alfredo Best MDGlucose Ql (U)NegativeNormalNEGMercy Rollinsford HospitalComment on above:Performed By: #### UMICAO, UA #### [facility] [address] [place] [address] Archeology Faculty Member: Alfredo Best MDHemoglobin, UrTRACEAbnormalNEGMerProMedica Toledo Hospital HospitalComment on above:Performed By: #### UMICAO, UA #### [facility] [address] [place], [place] [address] Archeology Faculty Member: Alfredo Best MDLeukocyte esterase Test strip Ql (U)TRACEAbnormal NEGMerDay Kimball HospitalComment on above:Performed By: #### UMICAO, UA #### [facility] [address] [place] [address] Archeology Faculty Member: Osman Wetzel,UrNegativeNoBlanchard Valley [facility] Comment on above:Performed By: #### UMICAO, UA #### [facility] [address] [place] [address] Archeology Faculty Member: Alfredo Best [facility],Ur6.8Wivwzo9.0-9.0[facility] Health SystemComment on above:Performed By: #### UMICAO, UA #### [facility] [address] [place] [address] Archeology Faculty Member: JUANITA Wetzelkindred hospital at rahway Ql (U)NegativeNormksNEGOhio Valley Surgical Hospital HospitalComment on above:Performed By: #### UMICAO, UA #### [facility] [address] [place] [address] Archeology Faculty Member: NITIN Wetzelpec. [place],Ur<1.193Tis3.010-1.020[facility] Health SystemComment on above:Performed By: #### UMICAO, UA #### [facility] [address] [place] [address] Archeology Faculty Member: Lior WetzelidityCLEARNormalCLEARBlanchard Valley Health System Comment on above:Performed By: #### UMICAO, UA #### [facility] [address] [place] [address] Archeology Faculty Member: Zbigniew Wetzel,UrNormalNormalNORMBlanchard Valley Health SystemComascension st. jose[facility] hospital on above:Performed By: #### UMICAO, UA #### [facility] [address] [place] [address] Archeology Faculty Member: Nasir WetzelNOT REPORTEDNormSouthwest General Health Center Comment on above:Performed By: #### RAZ, UA #### [facility] [address] [place] [address] Archeology Faculty Member: Alfredo Best MDUrinalysis, reflex to microscopicon 02-23-2020 Bilirubin UrineNegativeNEGATIVEMercy Health- [place], KYColor, UAYELLOWYELLOWMercy Health- [place], KYGlucose, UrNegativeNEGATIVEMercy Health- [place], KYInterpretation and review of laboratory resultsAbnormalMercy Health- [place], KYKetones Ql (U)Negative NEGATIVEMercy Health- [place], KYLeukocyte esterase Test strip Ql (U)TRACEAbnormal NEGATIVEMercy Health- [place], KYNitrite, UrineNegativeNEGATIVEMercy Health- [place], [place] pH, UA6.5[facility]- [place], KYProtein (U) [Mass/Vol]NegativeNEGATIVEMercy Health- [place], KYSpecific [place], UA<1.005LowMercy Health- [place], KYTurbidity UACLEARCLEAR MercShenandoah Memorial Hospital- [place], KYUrinalysis CommentsNOT REPORTEDMercy Health- [place], KYUrine Hgb TRACEAbnormalNEGATIVEMer Health- [place], KYUrobilinogen, UrineNormalNormalMer Health- [place], KYUrinalysis,Microon 02-23-2020-----NormalBlanchard Valley Health System Comment on above:Performed By: #### RAZ, UA #### [facility] [address] [place] [address] Archeology Faculty Member: Alfredo Best MDBacteriaTRACEAbSelect Medical Specialty [facility] Comment on above:Performed By: #### RAZ, UA #### [facility] [address] [place] [address] Archeology Faculty Member: Alfredo Best MDEpithelial cells LM Ql (Urine sed)10 TO 20Normal 0-25[facility] Health SystemComment on above:Performed By: #### RAZ, UA #### [facility] [address] [address] Archeology Faculty Member: Lino Wetzel RBC's0 TO 3Xtcwjl0-2Sgmtr [facility] Comment on above:Performed By: #### UMICAO, UA #### [facility] [address] [place] [address] Archeology Faculty Member: Lino Wetzel WBC's2 TO 0Moqgwe8-4XxzavBlanchard Valley Health System Comment on above:Performed By: #### UMICAO, UA #### [facility] [address] [place] [address] Archeology Faculty Member: Alberto Wetzel sediment LM Ql (Urine sed)NOT REPORTED NormalNONEMeMerit Health Central HospitalComment on above:Performed By: #### UMICAO, UA #### [facility] [address] [place] [address] Archeology Faculty Member: LAN WetzelastsNOT REPORTEDNormalBlanchard Valley Health System Comment on above:Performed By: #### UMICAO, UA #### [facility] [address] [place] [address] Archeology Faculty Member: LAN Wetzelryals LM Nom (Urine sed)NOT REPORTEDNormalNONE [facility] SystemComment on above:Performed By: #### UMICAO, UA #### [facility] [address] [place] [address] Archeology Faculty Member: Alfredo Best MDEpithelial, RenalNOT STYVKQPZTueotx3Fyxod Tiffin HospitalComment on above:Performed By: #### UMICAO, UA #### [facility] [address] [place] [address] Archeology Faculty Member: KATHLEEN Wetzelucus StrandsNOT REPORTEDNormalNONEMeMerit Health Central HospitalComment on above:Performed By: #### UMICAO, UA #### [facility] [address] [place] [address] Archeology Faculty Member: Allyson Wetzel ObservationsNOT REPORTEDNormalNRTriHealth Bethesda North HospitalComment on above:Performed By: #### RAZ, UA #### [facility] [address] [place], [place] [address] Archeology Faculty Member: Zara WetzelhomonasJUNI Lima Memorial HospitalComment on above:Performed By: #### RAZ, UA #### [facility] [address] [place], [place] [address] Archeology Faculty Member: Arnulfo Wetzel [facility] Comment on above:Performed By: #### RAZ, UA #### [facility] [address] [place], [place] [address] Archeology Faculty Member: Alfredo Best [facility] Auto Differentialon [id number] (Bld) [#/Vol]0.03 10*3/[facility] [place], KYBasophils/100 WBC (Bld)0 %0 - 2 %[facility] [place], KYDifferential TypeNOT REPORTEDPike Community Hospital [place], KYEosinophils (Bld) [#/Vol]10*3/[facility]- [place], KYEosinophils/100 WBC (Bld)0 %Low1 - 4 %[facility]- [place], KYErythrocyte distribution width (RBC) [Ratio]11.9 %11.8 - 14.4 % [facility]- [place], KYHematocrit (Bld) [Volume fraction]48.6 %High36.3 - 47.1 % [facility]- [place], KYHemoglobin (Bld) [Mass/Vol]16.9 g/kCPlps78.9 - 15.1 g/dL [facility]- [place], KYImmature granulocytes (Bld) [#/Vol]0 %0[facility]- [place], [place] Immature granulocytes (Bld) [#/Vol]0.03 10*3/[facility]- [place], [place] Interpretation and review of laboratory resultsAbnormalMercy Health- [place], [place] Lymphocytes (Bld) [#/Vol]1.35 10*3/[facility], RILymphocytes/100 WBC (Bld)17 %Low24 - 43 %[facility] [place], [facility] (RBC) [Entitic mass]30.9 pg25.2 - 33.5 pgAccess Hospital [place], [facility] (RBC) [Mass/Vol]34.8 g/dL28.4 - 34.8 g/dLAccess Hospital [place], RIMCV (RBC) [Entitic vol]88.8 fL82.6 - 102.9 fLTar Heel, [place] Monocytes (Bld) [#/Vol]0.44 10*3/[facility], RIMonocytes/100 WBC (Bld)5 %3 - 12 %[facility] [place], RIPlatelet mean volume (Bld) [Entitic vol]8.9 fL8.1 - 13.5 fLAccess Hospital [place], RIPlatelets (Bld) [#/Vol]NOT REPORTED[facility] [place], RIPlatelets (Bld) [#/Vol]321 10*3/uLAccess Hospital [place], RIRBC (Bld) [#/Vol]5.47 10*6/uLHigh3.95 - 5.11 m/[facility], RIRBC morphology finding Nom (Bld) NOT REPORTEDAccess [facility] [place], RISegmented neutrophils/100 WBC (Bld)78 %High36 - 65 %[facility] [place], RISegs Absolute6.28[facility] [place], RIWBC (Bld) [#/Vol] 8.1 10*3/[facility], RIWBC (Bld) [#/Vol]0.0 10*3/uL0.0 per 100 WBCAccess Hospital [place], RIWBC MorphologyNOT REPORTED[facility] [place], RICB with Diffon [id number]. Basophil0.03 k/uLNormal0.00-0.20[facility] Health SystemComment on above:Performed By: #### CDP, CMPX #### [facility] [address] [place], [place] [address] Archeology Faculty Member: Dewey Wetzel. Eosinophil<0.64Zxselv3.00-0.44MerProMedica Toledo Hospital HospitalComment on above:Performed By: #### CDP, CMPX #### [address] [place], [place] [address] Archeology Faculty Member: Dewey Wetzel.Imm.Granulocyte0.03 k/uLNormal0.00-0.30MerProMedica Toledo Hospital HospitalComment on above:Performed By: #### CDP, CMPX #### [address] [place] [address] Archeology Faculty Member: Dewey Wetzel.Neutrophil (Seg)6.28 k/uLNormal1.50-8.10MerProMedica Toledo Hospital HospitalComment on above:Performed By: #### CDP, CMPX #### [address] [place], [place] [address] Archeology Faculty Member: Alfredo Best MDBasophils/100 WBC (Bld)0 %Normal0-2Mer[facility] [place] HospitalComment on above:Performed By: #### CDP, CMPX #### [address] [place], [place] [address] Archeology Faculty Member: Alfredo Best MDEosinophils/100 WBC (Bld)0 %Low1-4[facility] HospitalComment on above:Performed By: #### CDP, CMPX #### [address] [place], [facility] Archeology Faculty Member: Alfredo Best MDErythrocyte distribution width (RBC) [Ratio]11.9 %Hvsuvx81.8-14.4[facility] HospitalComment on above:Performed By: #### CDP, CMPX #### [address] [place], [facility] Archeology Faculty Member: Alfredo Best MDHematocrit (Bld) [Volume fraction]48.6 %High 36.3-47.1MMercy Health Fairfield HospitalComment on above:Performed By: #### CDP, CMPX #### [address] [place], [place] [address] Archeology Faculty Member: Alfredo Best MDHemoglobin (Bld) [Mass/Vol]16.9 g/iKHsmb33.9-15.1 [facility] SystemComment on above:Performed By: #### CDP, CMPX #### [address] [place], [place] [address] Archeology Faculty Member: Claudy Wetzelmature granulocytes/100 WBC (Bld)0 %Normal0 [facility] [address] [facility] on above:Performed By: #### CDP, CMPX #### [address] [place], [facility] Archeology Faculty Member: Alfredo Best MDLymphocytes (Bld) [#/Vol]1.35 10*3/uLNormal 1.10-3.70[facility] SystemComment on above:Performed By: #### CDP, CMPX #### [address] [place], [place] [address] Archeology Faculty Member: Lili Wetzelmphocytes/100 WBC (Bld)17 %Kes43-08KlbseBlanchard Valley Health SystemComment on above:Performed By: #### CDP, CMPX #### [address] [place], [facility] Archeology Faculty Member: KATHLEEN WetzelCH (RBC) [Entitic mass]30.9 naImpazi92.2-33.5 [facility] SystemComment on above:Performed By: #### CDP, CMPX #### [address] [place], [place] [address] Archeology Faculty Member: FREDA WetzelC (RBC) [Mass/Vol]34.8 g/fUIqwkkr93.4-34.8 [facility] SystemComment on above:Performed By: #### CDP, CMPX #### [address] [place], [facility] Archeology Faculty Member: KATHLEEN WetzelCV (RBC) [Entitic vol]88.8 zBEfmcop45.6-102.9 [facility] SystemComment on above:Performed By: #### CDP, CMPX #### [address] [place], [facility] Archeology Faculty Member: KATHLEEN Wetzelonocytes (Bld) [#/Vol]0.44 10*3/uLNormal 0.10-1.20[facility] SystemComment on above:Performed By: #### CDP, CMPX #### [address] [place], [facility] Archeology Faculty Member: KATHLEEN Wetzelonocytes/100 WBC (Bld)5 %Normal3-12[facility] SystemComment on above:Performed By: #### CDP, CMPX #### [address] [place], [place] [address] Archeology Faculty Member: Fco Wetzelophil (Seg)78 %Ckee02-07NqgsrBlanchard Valley Health SystemComment on above:Performed By: #### CDP, CMPX #### [address] [place], [facility]83 Archeology Faculty Member: Alfredo Best MDNRBC Automated0.0 per 100 WBCNormal0.0[facility] HospitalComment on above:Performed By: #### CDP, CMPX #### [address] [place] [address] Archeology Faculty Member: JUANITA Wetzellatelet mean volume (Bld) [Entitic vol]8.9 fL Normal8.1-13.5[facility] HospitalComment on above:Performed By: #### CDP, CMPX #### [facility] [address] [place] [address] Archeology Faculty Member: Stefan Wetzel ([facility]) [#/Vol]321 10*3/sXSbiziu543-787 [facility] HospitalComment on above:Performed By: #### CDP, CMPX #### [facility] [address] [place] [address] Archeology Faculty Member: PATRICIA Wetzel (Bld) [#/Vol]5.47 10*6/uLHigh3.95-5.11[facility] Hospitalcy [place] HospitalComment on above:Performed By: #### CDP, CMPX #### [facility] [address] [place], [facility]83 Archeology Faculty Member: POPPY Wetzel (d) [#/Vol]8.1 10*3/uLNormal3.5-11.3MWhite Hospital HospitalComment on above:Performed By: #### CDP, CMPX #### [facility] [address] [place] [address] Archeology Faculty Member: Melvina Wetzel PerformedNOT REPORTEDNormalBellevue Hospitalcy [place] HospitalComment on above:Performed By: #### CDP, CMPX #### [facility] [address] [place], [facility]83 Archeology Faculty Member: Radha Wetzel EstimateNOT REPORTEDNormalOhio Valley Surgical Hospital HospitalComment on above:Performed By: #### CDP, CMPX #### [facility] [address] [place] [address] Archeology Faculty Member: PATRICIA Wetzel morphology finding Nom (Bld)NOT REPORTED NormalOhio Valley Surgical Hospital HospitalComment on above:Performed By: #### CDP, CMPX #### [facility] [address] [place], [place] [address] Archeology Faculty Member: POPPY Wetzel MorphologyNOT REPORTEDNoalBlanchard Valley Health SystemComment on above:Performed By: #### CDP, CMPX #### [facility] [address] [place] [address] Archeology Faculty Member: Alfreod Best, MDCT ABDOMEN PELVIS W IV CONTRASTon [id number] ABDOMEN PELVIS W IV CONTRASTEXAMINATION: CT OF THE ABDOMEN AND PELVIS WITH [...] of pelvic mass, lymphadenopathy or free fluid. Peritoneum/Retroperitoneum: No evidence of retroperitoneal lymphadenopathy. No intraperitoneal [...] Signed by: Sj Lama MD 02/21/20 Final resultNormalMercy Griffin HospitalCT ABDOMEN PELVIS W IV CONTRAST Additional Contrast? Noneon . Mild diffuse colonic wall thickening extending from the proximal transverse colon to the sigmoidcolon. This is nonspecific and might be artifact related to under distension. If clinically indicated, follow-up endoscopy could be done to evaluate for colitis. 2. Diverticulosis. 3. Otherwise, no evidence of acute intra-abdominal or intrapelvic process.[facility]- [place], [place], [facility] Incoming Radiant Results From [employer] - 02/21/2020 10:07 AM EDT EXAMINATION: CT [...] of pelvic mass, lymphadenopathy or free fluid. Peritoneum/Retroperitoneum: No evidence of retroperitoneal lymphadenopathy. No intraperitoneal [...] evidence of acute intra-abdominal or intrapelvic process. [facility] [place], KYEXAMINATION: CT OF THE ABDOMEN AND PELVIS WITH [...] The kidneys enhance symmetrically without evidence of hydronep hrosis. The gallbladder is unremarkable. GI/Bowel: There is no evidence of bowel obstruction or free intraperitoneal air. Mild diffuse wall thickening is seen involving the transverse, descending andsigmoid colon. However, the colon is not well distended and no obvious pericolic stranding is seen.This may be simply related to under distention but the possibility of colitis cannot be completely excluded. There are multiple diverticula. No abscess is seen. Pelvis: There is no evidence of pelvicmass, lymphadenopathy or free fluid. Peritoneum/Retroperitoneum: No evidence of retroperitoneal lymphadenopathy. No intraperitoneal adenopathy is seen. Bones/Soft Tissues: No acute abnormality of thevisualized osseous structures. Postsurgical changes are seen in the anterior abdominal wall from prior hernia repair.[facility] [place], [facility] Metabolic Pr/rfx MGon 02-21-2020(cont.)NormalBlanchard Valley Health SystemComment on above:Result Comment: Average GFR for 30-39 years old: 107 mL/min/1.73sq m Chronic Kidney Disease: <60 mL/min/1.73sq m Kidney failure: <15 mL/min/1.73sq m eGFR calculated using average adult body mass. Additional eGFR calculator available at: http://www.Veset.com/multiple_crcl_2012.htmPerformed By: #### CDP, CMPX #### [address] [place] [address] Archeology Faculty Member: Alfredo Best MDAlbumin [Mass/Vol]4.7 g/dLNormal3.5-5.2[facility] [place] HospitalComment on above:Performed By: #### CDP, CMPX #### [address] [place] [address] Archeology Faculty Member: Alfredo Best MDAlbumin/Glob Ratio1.4Pfqfss5.0-2.5Mer[facility] [place] HospitalComment on above:Performed By: #### CDP, CMPX #### [address] [place], [facility]83 Archeology Faculty Member: Deja Wetzelkaline Phos81 U/EHkuvog35-058Dofdz [place] HospitalComment on above:Performed By: #### CDP, CMPX #### [address] [place] [address] Archeology Faculty Member: Alfredo Best MDALT [Catalytic activity/Vol]16 U/LNormal5-33Mer[facility] [place] HospitalComment on above:Performed By: #### CDP, CMPX #### [address] [place] [address] Archeology Faculty Member: Alfredo Best MDAnion gap [Moles/Vol]14 mmol/LNormal9-17[facility] [place] HospitalComment on above:Performed By: #### CDP, CMPX #### [address] [place], [place] [address] Archeology Faculty Member: Alfredo Best MDAST [Catalytic activity/Vol]15 U/LNormal<32Mer[facility] [place] HospitalComment on above:Performed By: #### CDP, CMPX #### [facility] [address] [place] [address] Archeology Faculty Member: Alfredo Best MDBilirubin [Mass/Vol]0.41 mg/dLNormal0.3-1.2MWhite Hospital HospitalComment on above:Performed By: #### CDP, CMPX #### [address] [place] [address] Archeology Faculty Member: Alfredo Best MDBUN/CRE Ejggi66Onnqrk9-90Cdguo [facility] Comment on above:Performed By: #### CDP, CMPX #### [address] [place] [address] Archeology Faculty Member: LAN Wetzelalcium [Mass/Vol]9.7 mg/dLNormal8.6-10.4[facility] Health SystemComment on above:Performed By: #### CDP, CMPX #### [address] [place] [address] Archeology Faculty Member: LAN Wetzelhloride [Moles/Vol]102 mmol/JGlnksy10-607TsctuBlanchard Valley Health SystemComment on above:Performed By: #### CDP, CMPX #### [address] [place] [address] Archeology Faculty Member: Alfredo Best MDCO2 [Moles/Vol]19 mmol/PXeq60-57Ocork [facility]iff[facility] HospitalComment on above:Performed By: #### CDP, CMPX #### [address] [place] [address] Archeology Faculty Member: LAN Wetzelreatinine [Mass/Vol]0.67 mg/dLNormal0.50-0.90 [facility] SystemComment on above:Performed By: #### CDP, CMPX #### [address] [place], [place] [address] Archeology Faculty Member: Alfredo Nasir, MDGFR, Amer>60Normal>60[facility] Hospitalcy [place] [facility] Comment on above:Performed By: #### CDP, CMPX #### [address] [place], [place] [address] Archeology Faculty Member: Alfredo Best MDGFR,non Amer>60Normal>60[facility] [place] HospitalComment on above:Performed By: #### CDP, CMPX #### [address] [place], [place] [address] Archeology Faculty Member: Alfredo Best MDGlucose [Mass/Vol]172 mg/jEDgrk24-21Vmmnp [place] HospitalComment on above:Performed By: #### CDP, CMPX #### [address] [place] [address] Archeology Faculty Member: Alfredo Best MDPotassium [Moles/Vol]3.8 mmol/LNormal3.7-5.3[facility] [place] HospitalComment on above:Performed By: #### CDP, CMPX #### [address] [address] [place], [place] [address] Archeology Faculty Member: Alfredo Best MDProtein [Mass/Vol]7.9 g/dLNormal6.4-8.3Mercy Rollinsford HospitalComment on above:Performed By: #### CDP, CMPX #### [address] [place], [place] [address] Archeology Faculty Member: Alfredo Best MDSodium [Moles/Vol]135 mmol/HOwkdkj049-263Medef Rollinsford HospitalComment on above:Performed By: #### CDP, CMPX #### [address] [place] [address] Archeology Faculty Member: NITIN Wetzeltaging:NormalMerProMedica Toledo Hospital HospitalComment on above:Result Comment: Stage 1: Some kidney damage normal GFR Stage 2: Mild kidney damage GFR 60-89 Stage 3: Moderate kidney damage GFR 30-59 Stage 4: Severe kidney damage GFR 15-29 Stage 5: Severe kidney damage GFR <15 ESRD - chronic treatment by dialysis or transplantPerformed By: #### CDP, CMPX #### [facility] [address] [place] [address] Archeology Faculty Member: Alfredo Best MDUrea nitrogen [Mass/Vol]11 mg/dLNormal6-20[facility] SystemComment on above:Performed By: #### CDP, CMPX #### [facility] [address] [place] [address] Archeology Faculty Member: LAN Wetzelomprehensive Metabolic Panel w/ Reflex to MGon [id number] [Mass/Vol]4.7 g/dL3.5 - 5.2 g/dLAccess Hospital [place], [place] Albumin/Globulin [Mass ratio]1.5 {ratio}[facility] [place], KYALP [Catalytic activity/Vol]81 U/L35 - 104 U/LMHolzer Health System [place], KYALT [Catalytic activity/Vol] 16 U/L5 - 33 U/[facility] [place], KYAnion gap [Moles/Vol]14 mmol/L9 - 17 mmol/L [facility] [place], KYAST [Catalytic activity/Vol]15 U/L<32[facility] [place], [place] Bilirubin Ql (U)0.41 mg/dL0.3 - 1.2 mg/dLAccess Hospital [place], KYBun/Cre Ratio16 [facility] [place], KYCalcium [Mass/Vol]9.7 mg/dL8.6 - 10.4 mg/dLAccess Hospital [place], KYChloride [Moles/Vol]102 mmol/L98 - 107 mmol/LMVeterans Health Administration- [place], KYCO2 [Moles/Vol]19 mmol/LLow20 - 31 mmol/LMHolzer Health System [place], KYCreatinine [Mass/Vol] 0.67 mg/dL0.5 - 0.9 mg/dLPike Community Hospital [place], KYGFR >60>60 mL/min [facility] [place], KYGFR Non->60>60 mL/minAccess Hospital [place], [place] Glucose [Mass/Vol]172 mg/pPNonh42 - 99 mg/dLAccess Hospital [place], KYInterpretation and review of laboratory resultsAbnormalAccess Hospital [place], KYPotassium [Moles/Vol]3.8 mmol/L3.7 - 5.3 mmol/LMPremier Health Atrium Medical Center, KYProtein [Mass/Vol]7.9 g/dL6.4 - 8.3 g/dLAccess Hospital [place], KYSodium [Moles/Vol]135 mmol/L135 - 144 mmol/LMPremier Health Atrium Medical Center, KYUrea nitrogen [Mass/Vol]11 mg/dL6 - 20 mg/dLAccess Hospital [place], KYLactic Acidon [id number] [Moles/Vol]0.9 mmol/LNormal0.5-2.2 [facility] SystemComment on above:Performed By: #### LACTIC #### [address] [place], [place] [address] Archeology Faculty Member: Sissy Wetzelctic Acid,Whole BlNOT REPORTEDNormal0.7-2.1 [facility] SystemComment on above:Performed By: #### LACTIC #### [address] [place], [place] [address] Archeology Faculty Member: Aries Wetzel acid, plasmaon [id number] [Moles/Vol]0.9 mmol/L0.5 - 2.2 mmol/[facility], KYLactic Acid, Whole BloodNOT REPORTED0.7 - 2.1 mmol/[facility], KYLipaseon [id number] [Catalytic activity/Vol]20 U/IAcmrcu58-75KszbmBlanchard Valley Health SystemComment on above: Performed By: #### CDP, CMPX #### [address] [place] [address] Archeology Faculty Member: Alfredo Best MDLipase [Catalytic activity/Vol]20 U/L13 - 60 U/L [facility] [place], KYMetabolic Panelon [id number]/1.73 sq M predicted among non-blacks MDRD (S/P/Bld) [Vol rate/Area][facility] [place], KYComment on above: Average GFR for 30-39 years old: 107 mL/min/1.73sq m Chronic Kidney Disease: <60 mL/min/1.73sq m Kidney failure: <15 mL/min/1.73sq m eGFR calculated using average adult body mass. Additional eGFR calculator available at: http://www.[employer]/multiple_crcl_2012.htm Stage 1: Some kidney damage normal GFR Stage 2: Mild kidney damage GFR 60-89 Stage 3: Moderate kidney damage GFR 30-59 Stage 4: Severe kidney damage GFR 15-29 Stage 5: Severe kidney damage GFR <15 ESRD - chronic treatment by dialysis or transplant Microscopic Urinalysison 03-05-2546Fmjahwlxs, UANOT REPORTEDThe [facility], KYBacteria, UATRACEAbnormalNonTrumbull Regional Medical Center, KYCasts UANOT REPORTED/LPF [facility] [place], KYCrystals, UANOT REPORTEDNone /[facility], [place] Epithelial Cells UA0 TO 2MPremier Health Atrium Medical Center, KYInterpretation and review of laboratory resultsAbnormUC Health, KYMucus, UANOT REPORTEDNonTrumbull Regional Medical Center, KYOther Observations UANOT REPORTEDNOT REQ.[facility] [place], KYRBC (U) [#/Vol]0 TO 2MHolzer Health System [place], KYRenal Epithelial, UANOT REPORTED0 /[facility] [place], KYTrichomonas, UANOT REPORTEDNonTrumbull Regional Medical Center, KYWBC, UA0 TO 2 [facility] [place], KYYeast, UANOT REPORTEDNonTrumbull Regional Medical Center, [place]-[facility] [place], KYUrinalysis, Routineon [id number] Acid,UrTRACEAbnormalNEGBlanchard Valley Health SystemComment on above:Performed By: #### RAZ, UA #### [facility] [address] [place] [address] Archeology Faculty Member: Alfredo Best MDBilirubin, SemiQt,UrSMALLAbnormalNEGMerDay Kimball HospitalComment on above:Performed By: #### UMICAO, UA #### [facility] [address] [place] [address] Archeology Faculty Member: Alfredo Best [facility] SHAWNEEolor (U)YELLOWNormalYPremier Health [facility] Comment on above:Performed By: #### UMICAO, UA #### [facility] [address] [place] [address] Archeology Faculty Member: Alfredo Best MDGlucose Ql (U)NegativeNormalNEGBlanchard Valley Health SystemComment on above:Performed By: #### UMICAO, UA #### [facility] [address] [place] [address] [place] [address] Archeology Faculty Member: Alfredo Best MDHemoglobin, UrTRACEAbnormalNEGBlanchard Valley Health SystemComment on above:Performed By: #### UMICAO, UA #### [facility] [address] [place] [address] [place] [address] Archeology Faculty Member: Alfredo Best MDLeukocyte esterase Test strip Ql (U)Negative NormalNEGBlanchard Valley Health SystemComment on above:Performed By: #### UMICAO, UA #### [address] [place] [address] Archeology Faculty Member: Alfredo Best MDNitrite,UrNegativeNormalNEGBlanchard Valley Health System Comment on above:Performed By: #### UMICAO, UA #### [facility] [address] [place] [address] Archeology Faculty Member: JUANITA Wetzel,Ur6.3Dqioes1.0-9.0[facility] SystemComment on above:Performed By: #### UMICAO, UA #### [facility] [address] [place], [place] [address] Archeology Faculty Member: Alfredo Nasir, MDProtein Ql (U)NegativeNormalNEGBlanchard Valley Health SystemComment on above:Performed By: #### UMICAO, UA #### [facility] [address] [place], [place] [address] Archeology Faculty Member: Odell Wetzel. [place],Ur1.173Awqryk5.010-1.020[facility] SystemComment on above:Performed By: #### UMICAO, UA #### [facility] [address] [place], [place] [address]483 Archeology Faculty Member: VIRGILIO Wetzelmurphy army hospitalidityCLEARAudrain Medical CenteralCMetroHealth Parma Medical Center Comment on above:Performed By: #### UMICAO, UA #### [facility] [address] [place], [place] [address] Archeology Faculty Member: Tyrell Wetzelgen,UrNormalNormalOhioHealth Shelby HospitalComment on above:Performed By: #### UMICAO, UA #### [facility] [address] [place], [place] [address] Archeology Faculty Member: Alfredo Best [facility] SHAWNEEtomaNOT REPORTEDMercy Health [facility] Comment on above:Performed By: #### UMICAO, UA #### [facility] [address] [place], [place] [address] Archeology Faculty Member: Alfredo Best MDUrinalysis, reflex to microscopicon 02-21-2020 Bilirubin UrineSMALLAbnormalNEGATIVEMercy Health- [place], KYColor, UAYELLOWYELLOW [facility]- [place], KYGlucose, UrNegativeNEGATIVEMercy Health- [place], [place] Interpretation and review of laboratory resultsAbnormalMercy Health- [place], [place] Ketones Ql (U)TRACEAbnormalNEGATIVEMercy Health- [place], KYLeukocyte esterase Test strip Ql (U)NegativeNEGATIVEMercy Health- [place], KYNitrite, UrineNegativeNEGATIVE [facility]- [place], KYpH, UA6.0[facility]- [place], KYProtein (U) [Mass/Vol]Negative NEGATIVEMercy Health- [place], KYSpecific [place], UA1.015[facility]- [place], [place] Turbidity UACLEARCLEARMercy Health- [place], KYUrinalysis CommentsNOT REPORTEDMercy Health- [place], KYUrine HgbTRACEAbnormalNEGATIVEMercy Health- [place], KYUrobilinogen, UrineNormalNormalMercy Health- [place], KYUrinalysis,Microon 02-21-2020-----Normal [facility] SystemComment on above:Performed By: #### UMICAO, UA #### [facility] [address] [place], [place] [address] Archeology Faculty Member: Alfredo Best MDBacteriaTRAGood Samaritan Hospital Comment on above:Performed By: #### NATALIEO, UA #### [facility] [address] [address] Archeology Faculty Member: Alfredo Best MDEpithelial cells LM Ql (Urine sed)0 TO 2Normal 0-25[facility] SystemComment on above:Performed By: #### UMMARCO AO, UA #### [facility] [address] [place], [place] [address] Archeology Faculty Member: Lino Wetzel RBC's0 TO 2Xekedo5-7MturdMercy Health Fairfield Hospital Comment on above:Performed By: #### UMMARCO AO, UA #### [facility] [address] [place], [place] [address] Archeology Faculty Member: Lino Wetzel WBC's0 TO 7Wwqzov8-5AjxnkBlanchard Valley Health System Comment on above:Performed By: #### UMICAO, UA #### [facility] [address] [place] [address] Archeology Faculty Member: Dahlia Wetzelrpmatteos sediment LM Ql (Urine sed)NOT REPORTED NormalKettering Health TroyComment on above:Performed By: #### UMICAO, UA #### [facility] [address] [place] [address] Archeology Faculty Member: LAN WetzelastsNOT REPORTEDNormSouthwest General Health Center Comment on above:Performed By: #### UMICAO, UA #### [facility] [address] [place] [address] Archeology Faculty Member: Carmina Wetzel LM Nom (Urine sed)NOT REPORTEDNormalNONE [facility] HospitalComment on above:Performed By: #### UMICAO, UA #### [facility] [address] [place] [address] Archeology Faculty Member: Sarah Wetzel, RenalNOT BLTRHEUACtczfo4Ntuba Tiffin HospitalComment on above:Performed By: #### UMICAO, UA #### [facility] [address] [place] [address] Archeology Faculty Member: Aubree Wetzelus StrandsNOT REPORTEDNormalNONEMeMerit Health Central HospitalComment on above:Performed By: #### UMICAO, UA #### [facility] [address] [place] [address] Archeology Faculty Member: Allyson Wetzel ObservationsNOT REPORTEDNormalNREQOhio Valley Surgical Hospital HospitalComment on above:Performed By: #### UMICAO, UA #### [facility] [address] [place] [address] Archeology Faculty Member: Zara WetzelhomonasNOT REPORTEDNormalNONEMeMerit Health Central HospitalComment on above:Performed By: #### UMICAO, UA #### [facility] [address] [place] [address] Archeology Faculty Member: Melina WetzelastJUNI REPORTEDNormalNONEMeRockville General Hospital Comment on above:Performed By: #### UMICAO, UA #### [facility] [address] [place] [address] Archeology Faculty Member: Alfredo Best, [facility] Auto Differentialon [id number] (Bld) [#/Vol]0.10 10*3/[facility]- [place], KYBasophils/100 WBC (Bld)1 %0 - 2 %[facility]- [place], KYDifferential TypeNOT REPORTEDMercy Health [facility]- [place], KYEosinophils (Bld) [#/Vol]0.25 10*3/[facility]- [place], KYEosinophils/100 WBC (Bld)3 %1 - 4 %[facility]- [place], KYErythrocyte distribution width (RBC) [Ratio]12.3 %11.8 - 14.4 % [facility]- [place], KYHematocrit (Bld) [Volume fraction]47.7 %High36.3 - 47.1 % [facility]- [place], KYHemoglobin (Bld) [Mass/Vol]15.8 g/vYCurm78.9 - 15.1 g/dL [facility]- [place], KYImmature granulocytes (Bld) [#/Vol]1 %Tbtf6AcaurMercy Health [facility]- [place], KYImmature granulocytes (Bld) [#/Vol]0.05 10*3/[facility]- [place], [place] Interpretation and review of laboratory resultsAbnormalMercy Health [facility]- [place], [place] Lymphocytes (Bld) [#/Vol]2.71 10*3/[facility]- [place], KYLymphocytes/100 WBC (Bld)28 %24 - 43 %[facility]- [place], KYMCH (RBC) [Entitic mass]31.2 pg25.2 - 33.5 pgMercy Health [facility]- [place], KYMCHC (RBC) [Mass/Vol]33.1 g/dL28.4 - 34.8 g/dLMercy Health [facility]- [place], KYMCV (RBC) [Entitic vol]94.1 fL82.6 - 102.9 fLMercy Health Springfield Regional [facility] Center- [place], [place] Monocytes (Bld) [#/Vol]0.60 10*3/[facility]- [place], KYMonocytes/100 WBC (Bld)6 %3 - 12 %[facility]- [place], KYPlatelet mean volume (Bld) [Entitic vol]10.0 fL8.1 - 13.5 fLMercy Health- [place], KYPlatelets (Bld) [#/Vol]359 10*3/uLMercy Health- [place], KYPlatelets (Bld) [#/Vol]NOT REPORTEDMercy Health- [place], KYRBC (Bld) [#/Vol]5.07 10*6/uL3.95 - 5.11 m/uLMercy Health- [place], KYRBC morphology finding Nom (Bld)NOT REPORTEDMercy Health- [place], KYSegmented neutrophils/100 WBC (Bld)61 %36 - 65 % [facility]- [place], KYSegs Absolute6.16[facility]- [place], KYWBC (Bld) [#/Vol]0.0 10*3/uL0.0 per 100 WBCMercy Health- [place], KYWBC (Bld) [#/Vol]9.9 10*3/uLMercy Health- [place], KYWBC MorphologyNOT REPORTEDMercy Health- [place], KYComprehensive Metabolic Panelon [id number] [Mass/Vol]4.4 g/dL3.5 - 5.2 g/dLBellevue Hospitalcy Health- [place], KYAlbumin/Globulin [Mass ratio]1.4 {ratio}[facility]- [place], KYALP [Catalytic activity/Vol]70 U/L35 - 104 U/LMercy Health- [place], KYALT [Catalytic activity/Vol]10 U/L5 - 33 U/LMercy Health- [place], KYAnion gap [Moles/Vol]12 mmol/L9 - 17 mmol/LMercy Health- [place], KYAST [Catalytic activity/Vol]9 U/L<32[facility]- [place], KYBilirubin Ql (U)0.27 mg/dLLow0.3 - 1.2 mg/dLMercy Health- [place], [place] Bun/Cre Rthhe15Jnqdt Health- [place], KYCalcium [Mass/Vol]9.1 mg/dL8.6 - 10.4 mg/dL [facility]- [place], KYChloride [Moles/Vol]101 mmol/L98 - 107 mmol/LMercy Health- [place], KYCO2 [Moles/Vol]23 mmol/L20 - 31 mmol/LMercy Health- [place], KYCreatinine [Mass/Vol]0.56 mg/dL0.5 - 0.9 mg/dLAccess Hospital [place], KYGFR >60 >60 mL/minAccess Hospital [place], KYGFR Non->60>60 mL/minAccess Hospital [place], KYGlucose [Mass/Vol]133 mg/uFTyle84 - 99 mg/dLAccess Hospital [place], [place] Interpretation and review of laboratory resultsAbnormalAccess Hospital [place], [place] Potassium [Moles/Vol]4.4 mmol/L3.7 - 5.3 mmol/[facility], KYProtein [Mass/Vol]7.5 g/dL6.4 - 8.3 g/dLAccess Hospital [place], RISodium [Moles/Vol]136 mmol/L 135 - 144 mmol/[facility], KYUrea nitrogen [Mass/Vol]9 mg/dL6 - 20 mg/dL [facility] [place], RIMetabolic Panelon [id number]/1.73 sq M predicted among non-blacks MDRD (S/P/Bld) [Vol rate/Area][place], KYComment on above: Average GFR for 30-39 years old: 107 mL/min/1.73sq m Chronic Kidney Disease: <60 mL/min/1.73sq m Kidney failure: <15 mL/min/1.73sq m eGFR calculated using average adult body mass. Additional eGFR calculator available at: http://www.[employer]/multiple_crcl_2012.htm Stage 1: Some kidney damage normal GFR Stage 2: Mild kidney damage GFR 60-89 Stage 3: Moderate kidney damage GFR 30-59 Stage 4: Severe kidney damage GFR 15-29 Stage 5: Severe kidney damage GFR <15 ESRD - chronic treatment by dialysis or transplant T4on [id number], Total7 ug/dL4.5 - 12 ug/dLAccess Hospital [place], RITSH without Reflexon [id number] Qn1.85 m[IU]/[facility], [place] Vital Signs Date TimeVital SignValuePerforming NjnswmjtaFtwaxjfc96-27-4533 09:07-0400Body pbydna672.5 cmWilliam Juanjose DO Work Phone: [facility]05-06-2025 09:07-0400 Body mass index (BMI) [Ratio]48.4 kg/e5BzycihoWaldo Sow DO Work Phone: [facility]05-06-2025 09:07-0400 Body tnqwud530.02 kgWiandi Sow DO Work Phone: [facility]05-06-2025 09:07-0400 Diastolic blood wsducgbq38 mm[Hg]Waldo Sow DO Work Phone: [facility]05-06-2025 09:07-0400 Heart rate96 /minWaldo Sow DO Work Phone: [facility]05-06-2025 09:07-0400 Systolic blood spfobtvh648 mm[Hg]Waldo Sow DO Work Phone: [facility]04-09-2025 13:55-0400 Body sgxaxkuasbb42.7 [degF]Alden Lin MALWARE ANALYST Work Phone: [facility] HospitalUizmfmjsjt40-51-2466 13:55-0400Diastolic blood xhiondcb25 mm[Hg]Alden Lin MALWARE ANALYST Work Phone: [facility] HospitalVddhwpdxbz59-49-9521 13:55-0400Heart rate78 /min Alden Lin MALWARE ANALYST Work Phone: [phone] HospitalWqoijvqeqh50-58-6548 13:55-8456EhF8% (BldA) [Mass fraction]98 %Alden Lin MALWARE ANALYST Work Phone: [facility] HospitalBheszervoo81-46-6595 13:55-0400Systolic blood hmljntfo845 mm[Hg]Alden Lin MALWARE ANALYST Work Phone: [facility] HospitalNxywkmfsfz17-98-1863 13:54-0400Body mass index (BMI) [Ratio]48.79 kg/r6Prkdmablake Lin MALWARE ANALYST Work Phone: [facility] HospitalReoulmaohf38-93-1393 13:54-0400Body kg Alden Lin MALWARE ANALYST Work Phone: [facility] HospitalZxcgqdkjds42-46-3828 11:12-0500Body .5 Carli Lawson MD Work Phone: [facility] HospitalIwwcijqbyj58-90-4750 11:12-0500Body mass index (BMI) [Ratio]48.83 kg/r5MbfmjNigel Lawson MD Work Phone: [phone] [place], [place] [address]Ducidihxdf75-22-6604 11:12-0500Body oftqfe831.11 kgNigel Lawson MD Work Phone: [phone] [place], [place] [address]Wpfjlcpbkv06-03-6431 11:12-0500Diastolic blood hcjjipve65 mm[Hg]Nigel Lawson MD Work Phone: [phone] [place], [place] [address]Iajawsdcyq85-67-4973 11:12-0500Heart rate88 /min Nigel Lawson MD Work Phone: 1)[facility] [place], [place] [address]Ziatmvdqvc11-52-1322 11:12-0500Respiratory rate18 /minNigel Lawson MD Work Phone: [phone] [place], [place] [address]Vmafrwuqlf63-48-7077 11:12-7669MlJ0% (BldA) [Mass fraction]97 %Nigel Lawson MD Work Phone: [phone] [place], [place] [address]Adafjoyzvc67-87-3433 11:12-0500Systolic blood mqmimxyb412 mm[Hg]Nigel Lawson MD Work Phone: [phone] [place] [address], [place] [address]Ydyedictfa90-16-5049 17:12-0500Diastolic blood pcjmadhu378 mm[Hg]Bill Dan DO Work Phone: [facility]01-02-2025 17:12-0500 Heart rate86 /minThomas Dan DO Work Phone: [facility]01-02-2025 17:12-0500 Respiratory rate26 /minThomas Dan DO Work Phone: [facility]01-02-2025 17:12-0500 SaO2% (BldA) [Mass fraction]98 %Bill Dan DO Work Phone: 1(250)[address] [place], [place] 7105101-02-2025 17:12-0500 Systolic blood ciedmrak422 mm[Hg]Bill Colemanley DO Work Phone: [phone] [place], [place] 7105101-02-2025 14:30-0500 Body iiswdx600.94 cmTsouth baldwin regional medical centervinny Dan DO Work Phone: [phone] [place], [place] 7105101-02-2025 14:30-0500 Body nvzfesurokh71.8 [degF]Bill Dna DO Work Phone: [phone])[address] [place], [place] 7105101-02-2025 14:30-0500 Body jaeqrl513.2 kgThmatty Dan DO Work Phone: [phone] [place], [place] 7105110-29-2024 13:49-0400 Body jiyags904.02 cmDO Bill Dan Work Phone: [phone])[address] [place], [place] 7105110-29-2024 13:49-0400 Body mass index (BMI) [Ratio]46.2 kg/m2DO Bill Dan Work Phone: [phone])[address] [place], [place] 7105110-29-2024 13:49-0400 Body wfpjvi927.38 kgDO Bill Dan Work Phone: [phone])[address] [place], [place] 7105110-29-2024 13:49-0400 Diastolic blood ogdeplse92 mm[Hg]DO Bill Dan Work Phone: 1(433)[address] [place], [place] 7105110-29-2024 13:49-0400 Heart rate82 /minDO Bill Colemanley Work Phone: [phone])[address] [place], [place] 7105110-29-2024 13:49-0400 SaO2% (BldA) [Mass fraction]96 %DO Bill Dan Work Phone: [phone])[address] [place], [place] 7105110-29-2024 13:49-0400 Systolic blood nrnbolxc438 mm[Hg]DO Bill Dan Work Phone: [phone])[address] [place], [place] 7105108-30-2024 09:00-0400 Diastolic blood hnamqejk88 mm[Hg]DO Bill Dan Work Phone: 1(955)[address] [place], [place] 7105108-30-2024 09:00-0400 Heart rate67 /Ileana Dan Work Phone: [phone])[address] [place], [place] 7105108-30-2024 09:00-0400 Respiratory rate20 /Ileana Dan Work Phone: [phone])[address] [place], [place] 7105108-30-2024 09:00-0400 SaO2% (BldA) [Mass fraction]98 %DO Bill Dan Work Phone: [phone])[address] [place], [place] 7105108-30-2024 09:00-0400 Systolic blood mm[Hg]DO Bill Dan Work Phone: [phone])[address] [place], [place] 7105108-30-2024 08:00-0400 Body .5 [degF]DO Bill Dan Work Phone: [phone])[address] [place], [place] 7105108-30-2024 08:00-0400 Inhaled oxygen flow rate8 L/Ileana Dan Work Phone: [phone])[address] [place], [place] 7105108-30-2024 06:39-0400 Body .48 cmDO Bill Dan Work Phone: [phone])[address] [place], [place] 7105108-30-2024 06:39-0400 Body crmbzo456.39 kgDO Bill Dan Work Phone: [phone])[address] [place], [place] 7105104-30-2024 16:05-0400 Body jjezwg799.5 cmSveta MERRITT Work Phone: [facility]04-30-2024 16:05-0400 Body mass index (BMI) [Ratio]45.54 kg/b4GtiqcSveta Garnica APRN-GRACIELA Work Phone: [facility]04-30-2024 16:05-0400 Body xafgri658.95 kgSveta Garnica CAMERA MECHANIC-BURLESQUE DANCER Work Phone: [facility]04-30-2024 16:05-0400 Diastolic blood ygrzfmaf50 mm[Hg]Sveta Garnica CAMERA MECHANIC-BURLESQUE DANCER Work Phone: [facility]04-30-2024 16:05-0400 Heart rate73 /Octavia Garnica CAMERA MECHANIC-BURLESQUE DANCER Work Phone: [facility]04-30-2024 16:05-0400 Systolic blood mm[Hg]Sveta Garnica CAMERA MECHANIC-BURLESQUE DANCER Work Phone: [facility]03-06-2024 12:20-0500 Diastolic blood nwoxmtdd56 mm[Hg][facility]03-06-2024 12:20-0500Heart rate75 /[facility]03-06-2024 12:20-0500Respiratory rate16 /[facility]03-06-2024 12:20-9052AwI9% (BldA) [Mass fraction]98 %[facility] 08-07-2023 12:20-0500Systolic blood ynpysfut119 mm[Hg][facility]03-06-2024 09:14-0500Body newyil046.4 cmAdams [facility] Hospital 08-07-2023 09:14-0500Body mxewhuxevhz50.5 [degF][facility]03-06-2024 09:14-0500Body etlrpw852.9 kgAdams [facility] Hospital 07-09-2023 08:15-0500Body lvbbci906.4 kgMely Steinberg MD Work Phone: [facility] HospitalVazlufjcln64-94-2139 08:15-0500Diastolic blood bgqordzl94 mm[Hg]Mely Steinberg MD Work Phone: [facility] HospitalGfxwtkeray20-53-4479 08:15-0500Systolic blood srxwibjf758 mm[Hg]Mely Steinberg MD Work Phone: [facility] HospitalWarferqssi86-26-4209 12:17-0500Diastolic blood uyoklspf00 mm[Hg]DO Bill Dan Work Phone: [phone])[address] [place], [place] 7105101-22-2024 12:17-0500 Heart rate68 /Ileana Dan Work Phone: [phone])[address] [place], [place] 7105101-22-2024 12:17-0500 Respiratory rate16 /Ileana Dan Work Phone: [phone])[address] [place], [place] 7105101-22-2024 12:17-0500 SaO2% (BldA) [Mass fraction]97 %DO Bill Dan Work Phone: 1(141)[address] [place], [place] 7105101-22-2024 12:17-0500 Systolic blood yammdrve687 mm[Hg]DO Bill Dan Work Phone: 1(652)[address] [place], [place] 7105101-22-2024 11:47-0500 Inhaled oxygen flow rate4 L/Ileana Dan Work Phone: 1(231)[address] [place], [place] 7105101-22-2024 10:17-0500 Body .48 cmDO Bill Dan Work Phone: 1(105)[address] [place], [place] 7105101-22-2024 10:17-0500 Body tochwaxkale67.5 [degF]DO Bill Dan Work Phone: 1(598)[address] [place], [place] 7105101-22-2024 10:17-0500 Body aydoyz087.11 kgDO Bill Dan Work Phone: 1(083)[address] [place], [place] 7105101-03-2024 09:15-0500 Body .02 cmTmilesvinny Dan Other [employer] Other 01-03-2024 09:15-0500Body mass index (BMI) [Ratio] 44.99 kg/w8Ybqjybmatty Dan Other [place] [employer] Other 01-03-2024 09:15-0500Body lnqhiylvwfq26.4 [degF]Bill Dan Other [facility] [employer] Other 01-03-2024 09:15-0500Body ywizzh149.21 kgThmatty Dan Other [place] [employer] Other 01-03-2024 09:15-0500Diastolic blood ywhvjekv71 mm[Hg] Bill Dan Other [place] [employer] Other 01-03-2024 09:15-0500Respiratory rate18 /minThmatty Dan Other [place] [employer] Other 01-03-2024 09:15-1501UzM9% (BldA) [Mass fraction]97 % Bill Dan Other [place] [employer] Other 01-03-2024 09:15-0500Systolic blood ohgyhjbl090 mm[Hg] Bill Colemanley Other [place] [employer] Other 11-27-2023 12:52-0500Body fapvlu932.94 cmDO Bill Colemanley Work Phone: [facility]11-27-2023 12:52-0500 Body rqbhzmtljjy01.3 [degF]DO Bill Dan Work Phone: [facility]11-27-2023 12:52-0500 Body bymoxe873.65 kgDO Bill Dan Work Phone: [facility]11-27-2023 12:52-0500 Diastolic blood uxkxjxnr80 mm[Hg]DO Bill Dan Work Phone: [facility]11-27-2023 12:52-0500 Heart rate86 /minDO Bill Dan Work Phone: [facility]11-27-2023 12:52-0500 Respiratory rate20 /minDO Bill Dan Work Phone: [facility]11-27-2023 12:52-0500 SaO2% (BldA) [Mass fraction]98 %DO Bill Dan Work Phone: [facility]11-27-2023 12:52-0500 Systolic blood uluoazav735 mm[Hg]DO Bill Dan Work Phone: [facility]05-02-2023 14:30-0400 Body nmmgma219.02 cmTargelia Dan Other [employer] Other 05-02-2023 14:30-0400Body mass index (BMI) [Ratio] 43.93 kg/t7Lgruqimatty Dan Other [employer] Other 05-02-2023 14:30-0400Body xpjnay114.49 kgBill aDn Other [employer] Other 05-02-2023 14:30-0400Diastolic blood xejutwni90 mm[Hg] Bill Colemanley Other [employer] Other 05-02-2023 14:30-0400Respiratory rate18 /minBill Dan Other [employer] Other 05-02-2023 14:30-0974VeT3% (BldA) [Mass fraction]98 % Bill Colemanley Other [employer] Other 05-02-2023 14:30-0400Systolic blood tvjlvezh312 mm[Hg] Bill Eagle Other [employer] Other 11-02-2022 17:55-0400Diastolic blood mm[Hg] DO Jose Lan Work Phone: [phone] [place], [place] 4021511-02-2022 17:55-0400 Heart rate66 /minDO Jose Lan Work Phone: [address] [place], [place] 0762711-02-2022 17:55-0400 Respiratory rate18 /minDO Jose Lan Work Phone: [address] [place], [place] 0762711-02-2022 17:55-0400 SaO2% (BldA) [Mass fraction]96 %DO Jose Lan Work Phone: 1(475)[address] [place], [place] 0762711-02-2022 17:55-0400 Systolic blood xeoxcugs655 mm[Hg]DO Jose Lan Work Phone: 1(370)[address] [place], [place] 0762711-02-2022 16:25-0400 Body ixqgbl681.48 cmDO Jose Lan Work Phone: 1(310)[address] [place], [place] 0762711-02-2022 16:25-0400 Body hobosgszztb34.3 [degF]DO Jose Lan Work Phone: 1(676)[address] [place], [place] 0762711-02-2022 16:25-0400 Body .23 kgDO Jose Lan Work Phone: 1(404)[address] [place], [place] 0762710-25-2022 15:51-0400 Body lwqoik245.02 cmDO Jose Lan Work Phone: 1(030)[address] [place], [place] 0762710-25-2022 15:51-0400 Body beiietkvuya36.1 [degF]DO Jose Lan Work Phone: 1(396)[address] [place], [place] 0762710-25-2022 15:51-0400 Body kbrird765.6 kgDO Jose Lan Work Phone: 1(080)[address] [place], [place] 0762710-25-2022 15:51-0400 Diastolic blood nfirmxhc33 mm[Hg]DO Jose Lan Work Phone: [facility]10-25-2022 15:51-0400 Heart rate73 /Ileana Lan Work Phone: [facility]10-25-2022 15:51-0400 Respiratory rate18 /Ileana Lan Work Phone: [facility]10-25-2022 15:51-0400 SaO2% (BldA) [Mass fraction]97 %DO Jose Lan Work Phone: [facility]10-25-2022 15:51-0400 Systolic blood cdxbqjlu052 mm[Hg]DO Jose Lan Work Phone: [address] [place], [place] 6[address]1008-31-2022 10:50-0400 Body rrewcv439.48 cmThomas R Dan Work Phone: 1([phone]-Zistz [place] [employer] 250 DO Work Phone: 1(949) 395-455808-31-2022 10:50-0400Body mass index (BMI) [Ratio] 43.71 kg/f9Vhztie R Dan Work Phone: 1([phone]-Rxzpj [place] [employer] 250 DO Work Phone: 1(741) [phone] 10:50-0400Body surface area Derived from formula2.06 g9Mvyfia R Dan Work Phone: 1(701) [phone]-Obxqi [place] [facility] 250 DO Work Phone: 1(802) [phone] 10:50-0400Body juyrgf888.41 kgThomas R Dan Work Phone: mp325-5501BJ-Nxkje [place] [facility] 250 DO Work Phone: 1(414) 240-683808-31-2022 10:50-0400Diastolic blood xluyfmjg43 mm[Hg] Bill R Dan Work Phone: mp580-6276SX-Gcyyq [place] [employer] 250 DO Work Phone: 1(415) 855-676708-31-2022 10:50-0400Heart rate66 /minThomas Audrey Dan Work Phone: mp762-2181PJ-Diamh [place] [employer] 250 DO Work Phone: 1(881) 476-332108-31-2022 10:50-0400Systolic blood ahvdvqcy410 mm[Hg] Bill Dan Work Phone: [phone]-Rzpyw [place] [employer] 250 DO Work Phone: 1(468) 916-635708-24-2022 17:00-0400Body .02 [facility]inny Dan Other [employer] Other 08-24-2022 17:00-0400Body mass index (BMI) [Ratio] 42.86 kg/j8UobcwmBill Dan Other [employer] Other 08-24-2022 17:00-0400Body .77 kgThmatty Dan Other [employer] Other 08-24-2022 17:00-0400Diastolic blood lbulfnec13 mm[Hg] Bill Dan Other [employer] Other 08-24-2022 17:00-0400Respiratory rate18 /minThmatty Dan Other [employer] Other 08-24-2022 17:00-1109KqK3% (BldA) [Mass fraction]98 % Bill Dan Other [employer] Other 08-24-2022 17:00-0400Systolic blood itmzieur175 mm[Hg] Bill Dan Other [employer] Other 08-22-2022 13:35-0400Diastolic blood ckkgkola28 mm[Hg] DO [employer] Work Phone: [facility]08-22-2022 13:35-0400 Heart rate69 /minDO Jose Lan Work Phone: [facility]08-22-2022 13:35-0400 SaO2% (BldA) [Mass fraction]97 %DO Jose Lan Work Phone: [facility]08-22-2022 13:35-0400 Systolic blood yncmften499 mm[Hg]DO Jose Lan Work Phone: 1(713)387-[address] [place], [place] 4620308-22-2022 12:10-0400 Body rgvgyktxrew28 [degF]DO Jose Lan Work Phone: [address] [place], [place] 6651008-22-2022 12:10-0400 Respiratory rate16 /minDO Jose Lan Work Phone: [address] [place], [place] 6651008-22-2022 05:56-0400 Body jwukoe986.8 kgDO Jose Lan Work Phone: [address] [place], [place] 6651008-20-2022 04:19-0400 Body .48 cmDO Jose Lan Work Phone: [address] [place], [place] [address]651008-20-2022 00:00-0400 65 1Thomas R Eagle Work Phone: 1(706) [phone]-Fkdto [place] [facility] 250 DO Work Phone: Comment on above:EAGRCYFB6360-52-8861 10:30-0500Body .02 cmTmilesas Eagle Other [employer] Other 02-10-2022 10:30-0500Body mass index (BMI) [Ratio]46.8 kg/o1Ohceyi Eagle Other [facility] [employer] Other 02-10-2022 10:30-0500Body grajrh645.84 kgThmatty Dan Other [facility] [employer] Other 02-10-2022 10:30-0500Diastolic blood xbfbpoaw01 mm[Hg] Bill Dan Other [place] [employer] Other 02-10-2022 10:30-0500Respiratory rate18 /minThomas Eagle Other [place] [employer] Other 02-10-2022 10:30-4045JqI9% (BldA) [Mass fraction]95 % Bill Dan Other [place] [employer] Other 02-10-2022 10:30-0500Systolic blood iihspaym331 mm[Hg] Bill Dan Other [place] [employer] Other 08-23-2021 20:02-0400Diastolic blood taguyfke69 mm[Hg] Neelima Dutton DO Work Phone: [employer] Work Phone: 1(470) 329-294008-23-2021 20:02-0400Heart rate89 /minAmanda [employer] DO Work Phone: [employer] Work Phone: 1(886) 266-273808-23-2021 20:02-0400Respiratory rate17 /minAmanda Dutton DO Work Phone: [employer] Work Phone: 1(749) [phone] 20:02-0829TcQ3% (BldA) [Mass fraction]97 % Neelima Dutton DO Work Phone: [employer] Work Phone: 1(730) [phone] 20:02-0400Systolic blood apramzmt163 mm[Hg] Neelima Dutton DO Work Phone: [employer] Work Phone: 1(288) 462-759208-23-2021 19:59-0400Body dlzeeblhcok08.71 [degF] Neelima Dutton DO Work Phone: [place] [address] Work Phone: 1(548) [phone] 22:45-0500BP Mbtznrthx54 mm[Hg][facility], ES98-64-1841 22:45-0500BP Thahduvi353 mm[Hg][facility], GQ69-97-9293 22:45-0500Pulse (Heart Rate)86 /[facility], GY16-03-6990 22:45-0500Pulse Ksyucerj81 %[facility], TH44-76-8317 22:45-0500Respiratory Rate16 /minWood [facility], SL38-28-7239 10:44-0500BMI (Body Mass Index)40.23 kg/k3NkevxbnWood County Hospital, FK94-05-7655 10:44-0500Body Kkrmwqfcztj86.3 [degF][facility], FI56-04-2999 10:44-0500Body zccvva21.44 kgWood [facility], 04-03-2020 10:44-9622Nykbmt212.4 cmWood [facility], FE66-93-6777 16:55-0400BMI (Body Mass Index)41.01 kg/m2[facility], KX42-82-2204 16:55-0400Body Plwhuglkqou81.01 [degF][facility], AP09-78-4519 16:55-0400Body dolfjn60.25 kgOhio[facility], KU35-69-6360 16:55-0400BP Hlfvdadfu16 mm[Hg][facility], LK81-89-3908 16:55-0400BP Systolic 130 mm[Hg][facility], MH73-40-1944 16:55-0400Pulse (Heart Rate)94 /minSr [facility], UZ50-90-5049 16:55-0400Pulse Dysemndy23 %[facility], GD14-25-8922 16:55-0400Respiratory Rate22 /minSr [facility], CN87-37-4925 12:15-0400BP Hcutjoljs25 mm[Hg][facility], AN83-51-5836 12:15-0400BP Iubcmnfm217 mm[Hg][facility]cle[facility], BZ06-99-4820 10:40-0400Pulse Dxfxhhax63 %Tonie SpanglerCherrington Hospitaleric [facility], ER90-47-3200 07:41-0400BMI (Body Mass Index)41.99 kg/a4Nkruqzitf [facility], BB24-24-9143 07:41-0400Body Bwrqnxzajdc40.39 [degF] Tonie SpanglerCherrington Hospitaleric [facility], MP70-08-6172 07:41-0400Body knwdua21.52 kg Tonie SpanglerCherrington Hospitaleric [facility], MB44-11-3454 07:41-0400Pulse (Heart Rate)89 /[place] [facility], GD12-03-4593 07:41-0400Respiratory Rate18 /trekassidy [facility], DI34-08-3697 10:15-0400BP Kbocowucf93 mm[Hg][facility]arthak [facility] [place], XA85-97-8728 10:15-0400BP Kznussoe045 mm[Hg] Sarthak [facility] [place], IC07-68-8903 10:15-0400Pulse Yozdenqq75 %Sarthak [facility] [place], YJ03-00-8040 08:57-0400BMI (Body Mass Index)41.99 kg/m2 Sarthak [facility] [place], NG99-29-0436 08:57-0400Body Nhfqlzpkdzs78.2 [degF] Sarthak [facility] [place], XZ22-52-9389 08:57-0400Body kzyzaa19.52 kgEtan [facility] [place], AL47-69-1711 08:57-7323Ysrckq973.4 cmEtan [facility] [place], XY99-67-4122 08:57-0400Pulse (Heart Rate)92 /[facility], CX62-67-4150 08:57-0400Respiratory Rate18 /[facility], [place] Encounters Encounter DateEncounter TypeCare ProviderFacilityStart: 20-68-8360cmzmfbdhpn Bill DanFacility:[facility] Campustart: 10-06-2024 End: 94-18-4657Iagwwl outpatient visit 25 [facility] Work Phone: uh [facility] JohnstonComment on above:ASHD (arteriosclerotic heart disease); Type 2 diabetes mellitus with other specified complication, with long-term current use of insulin; Current every day smoker; BMI 45.0-49.9, adult (Multi); Localized edema; Syndrome X (cardiac)Start: 10-06-2024 End: 96-17-3463cxjservocjWRZOZYFCaro Center AmbulatoryStart: 09-11-2024 End: 62-82-5752Lghlixvqp encounterAhmaddi Lawson MD Work Phone: noms ENDOCRINOLOGYComment on above:Med RefillStart: 09-09-2024 End: 99-46-0568rrxauijhimZOVKVO L HOLBROOKNot AvailableStart: 09-09-2024 End: 47-85-5286Cwboyx outpatient visit 25 minutesRachel L Diane MALWARE ANALYST Work Phone: noms [facility] UCComment on above:Bronchitis with asthma, acute (CMS/HCC) (Primary Dx); Cough, unspecified typeStart: 08-30-2024 End: 98-49-5164FnlqlrGmufu F Sabbagh MD Work Phone: noms ENDOCRINOLOGYComment on above:Type 2 diabetes mellitus with hyperglycemia, with long-term current use of insulin (CMS/HCC) (Primary Dx)Start: 07-14-2024 End: 53-44-9565Eabaob flowsheetNigel Lawson MD Work Phone: noms ENDOCRINOLOGYStart: 07-14-2024 End: 26-01-3382Kjitak flowsheetNgiel Lawson MD Work Phone: noms ENDOCRINOLOGYStart: 07-14-2024 End: 89-30-9863Fkuaud outpatient visit 25 minutesNigel Lawson MD Work Phone: noms ENDOCRINOLOGYComment on above:Type 2 diabetes mellitus with hyperglycemia, with long-term current use of insulin (CMS/HCC) (Primary Dx); Vitamin D deficiency; Primary hypertension (CMS/HCC); Hyperlipemia, mixed (CMS/HCC); Encounter for dietary consultation; Class 3 severe obesity due to excess calories with serious comorbidity and body mass index (BMI) of45.0 to 49.9 in adult (CMS/HCC)Start: 07-14-2024 End: 26-71-3167xajfzpsxtvUXALP F SABBAGHNot AvailableStart: 06-04-2024 End: 76-47-9734Pbuyjlqbd department patient visitThomas Eagle DO Work Phone: [facility]Emer[facility] Work Phone: Start: 63-83-6272Wxjnigusgi RecurringThomas Dan DO Work Phone: [facility]- CredibleStart: 04-25-2024 End: 93-43-7535ByophaVejveNoam Lawson MD Work Phone: noms ENDOCRINOLOGYComment on above:Type 2 diabetes mellitus with hyperglycemia, with long-term current use of insulin ([facility]/HCC) (Primary Dx)Start: 03-31-2024 End: 28-28-1573botxnnknabPF Thomas R Conley Work Phone: [facility] Work Phone: Start: 03-31-2024 End: 76-56-4516Yduxcnp encounter procedureDO Bill Dan Work Phone: [facility] Work Phone: Start: 03-31-2024 End: 76-83-4583Tsvuqtd encounter procedureDO Bill Dan Work Phone: [facility] Hospitaltart: 03-31-2024 End: 90-10-6820abvpahkccwXI Bill Dan Work Phone: [facility] Work Phone: Start: 03-26-2024 End: 79-53-2933QxzhvxMozbvNoam Lawson MD Work Phone: noms ENDOCRINOLOGYComment on above:Type 2 diabetes mellitus with hyperglycemia, with long-term current use of insulin ([facility]) (Primary Dx)Start: 09-86-5126Rkofjpgoeb RecurringDO Bill Dan Work Phone: [facility] CredibleStart: 94-67-3679Wpt-patient / Non-visitDO Bill Dan Work Phone: [facility] Work Phone: Start: 01-31-2024 End: 01-45-2954Btscrsek Result EncounterMely Steinberg MD Work Phone: noms External Department UnsolicitedStart: 01-31-2024 End: 37-48-6581Jtikcqnm Result EncounterMely Steinberg MD Work Phone: noms External Department UnsolicitedStart: 01-31-2024 End: 93-62-0855Gdxuuorss to same day surgery centerDO Bill Dan Work Phone: [facility] Main CampusStart: 01-31-2024 End: 12-92-1361moggxkiehnRI Bill Dan Work Phone: [facility] Work Phone: Start: 21-88-4187Ommjjdjicy RecurringDO Bill Dan Work Phone: [facility] CredibleStart: 01-21-2024 End: 20-26-1776Mywxjmrx Result EncounterPenola P Steinberg MD Work Phone: noms External Department UnsolicitedStart: 01-21-2024 End: 58-87-8286Ijvvshqc Result EncounterMely Steinberg MD Work Phone: noms External Department UnsolicitedStart: 01-21-2024 End: 06-97-6906snefdxatsfTS Bill Dan Work Phone: [facility] Work Phone: Start: 01-21-2024 End: 46-90-9786Ibirudt encounter procedureDO Bill Dan Work Phone: [facility]-Pre-Surgical Testing Work Phone: Start: 16-09-7881Jnr-patient / Non-visitDO Bill Dan Work Phone: [facility] [place] Work Phone: Start: 99-15-2522Pyqhuojozh Recurring Bill Dan Work Phone: [facility]- CredibleStart: 10-18-2023 End: 83-06-1217gryfddhbptJCA [facility] Work Phone: Start: 10-18-2023 End: 34-08-0022Xbxzpel encounter procedureC[facility] [place] Work Phone: Start: 14-98-0554Obtxlxmzri [facility]- CredibleStart: 10-15-2023 End: 36-22-8918sbeeujkxpkZAZVWV P JONESNot AvailableStart: 10-01-2023 End: 92-91-9944Rrwrpk outpatient visit 15 minutesSveta Garnica [employer]ERA MECHANIC-BURLESQUE DANCER Work Phone: uh [facility] on above:Syndrome X (cardiac) (CMS-HCC) (Primary Dx); Type 2 diabetes mellitus without complication, with long-term current use of insulin (Multi); Mild CAD; Mixed hyperlipidemia; Essential hypertension; Current every day smoker; BMI 45.0-49.9, adult (Multi); NSTEMI, initial episode of care (Multi); Pre-operative clearanceStart: 10-01-2023 End: 11-16-1735Ehojhnodvjwp Bonniejade Arreola Nahun [employer] MECH[employer]IC[employer]URL[employer] DANCER Work Phone: [facility] Work Phone: Start: 08-07-2023 End: 77-37-2871Blouhlaiu department patient visitMercer [facility]- Emergency [facility] Work Phone: Start: 07-09-2023 End: 74-33-6486Tqqdsts encounter statusMeyl Steinberg MD Work Phone: noms HealthcareStart: 07-09-2023 End: 41-83-2901Tprsgbth preventive med est patient 18-39 yrsMely Steinberg MD Work Phone: noms [facility] OBComment on above:Screening for malignant neoplasm of cervix; Encounter for gynecological examination without abnormal finding; Encounter for screening mammogram for malignant neoplasm of breast; Abnormal vaginal bleedingStart: 07-04-2023 End: 84-24-8919wgdfhtixluHkqtur Conley Other [employer] Other Start: 78-49-6383Gjkuzfoog encounterThmatty DanFPG Family Medicine SanduskyStart: 07-01-2023 End: 99-96-6551sfugfzmfxwJmdikkd Mahnaz Other [employer] Other Start: 11-41-4059Ecfhuobnb encounterCameron DitayeyFPG GastroenterologyStart: 52-37-1214Fbt-patient / Non-visitDO Bill Dan Work Phone: [facility] Gastroenterology Work Phone: Start: 06-19-2023 End: 95-27-5550vnlvtuwiieGE Bill Dan Work Phone: [facility] Work Phone: Start: 06-19-2023 End: 59-34-0709Ivmfbkx encounter procedureDO Bill Dan Work Phone: [facility]-Ultrasound [place] Work Phone: Start: 06-11-2023 End: 36-88-6843xzvytdlipqCusmtbg Ditty Other [employer] Other Start: 44-65-2077Cpjmplxxe encounterCamangie Hernández Referral CoordinatorStart: 06-05-2023 End: 14-88-7128jjcuirjimhGrcdgr Conley Other [employer] Other Start: 04-92-7721Uiepes outpatient visit 25 minutes Bill Ferreira [facility] [place]kyStart: 06-05-2023 End: 26-73-8915Lmaceek encounter procedureDO Bill Dan Work Phone: [facility] [place] Work Phone: Start: 04-29-2023 End: 47-05-3557Pysuwhhqs department patient visitDO Bill Dan Work Phone: [facility]-Emergency Room Work Phone: Start: 81-70-7697Trxtxhkbpw RecurringDO Bill Dan Work Phone: [facility]- CredibleStart: 02-05-2023 End: 12-77-8738geihdyhrnhPeliug Conley Other [employer] Other Start: 62-86-5081Sjrzlrdtg encounterThmatty Ferreira Family Medicine XaviyStart: 86-11-3138Uoyamd outpatient visit 25 minutes Bill Ferreira [facility] [place]kyStart: 10-02-2022 End: 21-63-2059jfcatrxvsuFF Bill Dan Work Phone: [facility] Work Phone: Start: 10-02-2022 End: 32-08-5050Qqjkqat encounter procedureDO Bill Dan Work Phone: [facility]ptowntart: 04-30-2022 End: 65-75-6645wtgfwwgbbsUqcnch Eagle Other [employer] Other Start: 58-62-0000Oecgkhnhe encounterThomas ConleySt. Rose Hospitalart: 04-10-2022 End: 21-80-1815buqoaxzhmrRkuoqo Eagle Other [employer] Other Start: 96-57-1747Rqrkumyzs encounterThomas ConjayantSt. Joseph HospitalyStart: 04-04-2022 End: 90-42-7829Cxvuvxrej department patient visitDO Joseaustin Lan Work Phone: [facility]-Emergency RoomStart: 03-28-2022 End: 89-34-7163jqhnqquujzMbwmfe Eagle Other [employer] Other Start: 93-05-0805Zarbczgca encounterThomas ConjayantSt. Joseph HospitalyStart: 03-27-2022 End: 62-17-7374Pnzafuvdj department patient visitDO Jose Lan Work Phone: [facility]-Emergency RoomStart: 38-50-0232Wh RenewalBill Dan Work Phone: [phone]-Wzlnx[facility] 250 DO Work Phone: Start: 38-12-2574Jxtqxj outpatient visit 25 minutes Bill Dan Work Phone: [phone]-Ejfrr [facility] 250 DO Work Phone: Start: 36-97-4638mfbxwlhhsfXpRl Waldo Sow Facility:[id number]: 01-24-2022 End: 81-65-9038dvgvzthiayAytobl Dan Other [employer] Other Start: 21-46-5338Ndqgck outpatient visit 25 minutes Bill DanCOBRE [facility] Family Medicine [place]Start: 36-15-7682upqzhzewdhKenhydv ALBERTOuinn IIFacility:[id number]: 41-12-4624axiladoomlIdxxxhj ALBERTOuinn II Facility:[id number]: 01-20-2022 End: 58-69-2554Bvdajyjdjx and management of inpatientDO Jose Lan Work Phone: [facility]-4 [place] SurgicalStart: 91-71-6766moyuqenghrYyqjgdk MCGuinn IIFacility:[id number]: 01-19-2022 End: 08-81-7875vxexcdisvmMPVBA PARKERFacility:B6Dmyyi: 11-07-2021 End: 09-33-0361vvvgcrswusPI SANJEEV HOUSEFacility:K7Utjto: 10-13-2021 End: 44-72-7328uiefshdehdLxmeka Dan Other [employer] Other Start: 68-70-0543Hhxefnsrw encounterThomas ConleyFPG [facility] [place]kyStart: 08-14-2021 End: 12-69-3032vkpiuvzeklSxrfyc Dan Other [employer] Other Start: 37-87-7632Nwpbmemnc encounterThomas EagleFPG [facility] [place]kyStart: 07-13-2021 End: 22-85-3244ebabffmpemAixcub Dan Other [employer] Other Start: 69-30-9493Ojiufq outpatient new 45 minutes Bill ConleyFPG [facility] Medicine [place]Start: 07-11-2021 End: 70-92-6474nonkzoheggZP ADELA MARKERFacility:Z0Cocex: 03-06-2021 End: 60-63-6428vvaynlauieOH SANJEEV HOUSEFacility:J7Voyto: 91-58-5613Tgyubidqn department patient visitSR SANJEEV Boswell [facility] HospitalStart: 01-23-2021 End: 86-17-9166Antwzyrix department patient visitNeelima Dutton DO Work Phone: [facility] EDComment on above:Left flank pain (Primary Dx)Start: 10-06-2020 End: 59-86-8451Zpcljotso department patient visitSR SANJEEV Boswell [facility] HospitalStart: 04-03-2020 End: 84-87-8775Kzwyidsly department patient visitSR SANJEEV Boswell [facility] HospitalStart: 04-03-2020 End: 82-51-4373Hmomtdvbq department patient visitAdela Swenson Work Phone: [facility] EDComment on above:Major depressive episode (Primary Dx); Suicidal ideationStart: 58-49-2151Smkgsmjwg department patient visitSR SANJEEV Boswell [facility] HospitalStart: 03-29-2020 End: 65-12-0990Jukauphjt department patient visitSr [facility] EDComment on above:Opiate withdrawal (HCC) (Primary Dx)Start: 02-23-2020 End: 63-95-1567Dchemarwb department patient visitTONIE Guevara [facility] HospitalStart: 02-23-2020 End: 47-73-1591Fufxuvlef department patient visitkassidy Arzola Work Phone: [facility] EDComment on above:Abdominal pain, unspecified abdominal location (Primary Dx); Non-intractable vomiting with nausea, unspecified vomiting typeStart: 02-21-2020 End: 03-06-1477Klzdesofn department patient visitSARTHAK Costello [facility]Start: [facility]2020 End: 56-32-4829Bpxhhngzp department patient visitSarthak Parmar Work Phone: [facility] EDComment on above:Colitis (Primary Dx)Start: 08-10-2019 End: 40-04-2834Nvvvplruyy hospital visit by physicianRoche[facility] EKG Comment on above:ArrivedStart: 08-05-2019 End: 62-17-1374Mzejsfxqyd hospital visit by physicianSr [facility] Start: 04-15-2017 End: 13-98-8514Xvykcwp encounter procedureJIANLIN TANGFacility:[facility] Procedures DateProcedureProcedure DetailPerforming ClinicianStart: 51-43-2750Ujvkmnuzz influenzaAlden Lin NP Work Phone: Start: 71-10-5723Puvk bld gluc mntr dev cleared fda spec home useAhmaneida Lawson MD Work Phone: Start: 59-22-1105Ujlok chest X-rayThmatty Dan DO Work Phone: Start: 37-04-5059Gbqum nucleic acid assayThmatty Colemanley DO Work Phone: Start: 62-73-7453Ulccmazrzcey with endometrial ablationDO Bill Dan Work Phone: Start: 94-11-9639SITQBNN POCT GLUCOMETERSMely Steinberg MD Work Phone: start: 31-43-1516Gqbpuupsyjny chorionic quantitative Mely Steinberg MD Work Phone: start: 82-20-1505Zwhsljhq blood count with white cell differential, automatedMely Steinberg MD Work Phone: start: 20-46-1397Bboqcedptkvwn metabolic panelMely Steinberg MD Work Phone: start: 41-36-9258Hfc routine ecg w/least 12 lds w/i&r Sveta Garnica [employer] Work Phone: Start: 85-51-8910MkzuhforzotPwnqa Smith [employer] Work Phone: Start: 96-96-4635Dbvycwiimwd observation [Identifier] in Cervix by Cyto Rosario Lawson MD Work Phone: Start: 99-52-0285RGYHAMWM TIS PAP AND HPV MRNA E6/E7 Mely Steinberg MD Work Phone: start: 86-34-9719HR scan of gallbladderDO Bill Dan Work Phone: Start: 75-30-1936Hupsp chest X-rayDO Jose Lan Work Phone: Start: 41-03-3401RO LHC & COR AngioDO Jose Lan Work Phone: Start: 21-05-4729UG Jose Lan Work Phone: Start: 80-27-8405Szbcmtlcyl microscopic onlyAmanda Nadia DO Work Phone: Start: 86-27-7955Tsdkb dip stick/tablet rgnt auto w/o microscopyAmanlaura Dutton DO Work Phone: Start: 38-21-8804Ou abdomen & pelvis w/o contrast materialAmanda Nadia DO Work Phone: Start: 84-00-1326Proeg of lipaseAmanda Nadia DO Work Phone: Start: 43-40-6848QIRVBFQ, SEPSISAmanda Nadia DO Work Phone: Start: 12-07-1027RXDCP-19ETAN EITCHESStart: 04-03-2020 COVID-19Akilahrhina Aime Work Phone: start: 71-97-9782Hrzw screen class list aETAN EITCHES Start: 83-44-8921Mmjxgszqta microscopic onlyETAN EITCHESStart: 49-07-1071Jheml dip stick/tablet rgnt auto w/o microscopyETAN EITCHESStart: 83-34-9145Ezyx screen class list Jacintorhina Aime Work Phone: start: 63-43-3409Wrvndbufmj microscopic onlyAdela Swenson Work Phone: Start: 89-69-9974Yvxna test visual color cmprsn methsMtigist Swenson Work Phone: [phone]: 95-32-0841Mvtlg dip stick/tablet rgnt auto w/o microscopyMelrhina Swenson Work Phone: start: 72-37-0989JSBUHRQ PRECAUTIONSETAN EITCHESStart: 81-00-6599Dke routine ecg w/least 12 lds w/i&rETAN EITCHESStart: 36-54-8633PCA REPORTETAN EITCHESStart: 12-43-2181Ulwrt of ethanolETAN EITCHESStart: 04-03-2020 Blood count complete auto&auto difrntl wbcETAN EITCHESStart: 53-15-2819Nwq routine ecg w/least 12 lds w/i&rMelissa Aime Work Phone: [phone]: 76-18-8798CSI REPORTHpf ScanningStart: 23-03-9579Wevfo of ethanolAdela Swenson Work Phone: [phone]: 94-40-8812Bbqql of magnesiumAdela Swenson Work Phone: Start: 14-85-0647Mdrrj of thyroid stimulating hormone tshAdela Swenson Work Phone: start: 47-26-5141Nfsdn of thyroxine totalAdela Swenson Work Phone: Start: 79-13-0466Ntacr count complete auto&auto difrntl wbcAdela Swenson Work Phone: Start: 42-70-9096UXARE-19Jocassie Pastrana Work Phone: Start: 65-07-7340Oadb screen class list aJoshua Victoriano Work Phone: Start: 24-02-7575Znkqntkmxe microscopic onlyJocassie Pastrana Work Phone: Start: 43-20-0690Hindm dip stick/tablet rgnt auto w/o microscopyJoshchichi Pastrana Work Phone: Start: 13-84-3948Sxwwb of acetaminophenJocassie Pastrana Work Phone: Start: 73-28-2739Nxtoo of salicylateJocassie Pastrana Work Phone: Start: 91-72-9725Itkym count complete auto&auto difrntl wbcTe Pastrana Work Phone: Start: 58-59-8233Gvpguzsbwuis chorionic quantitative Tecassie Pastrana Work Phone: Start: 15-09-4206Mak routine ecg w/least 12 lds w/i&r Te Pastrana Work Phone: Start: 14-01-5883AVS REPORTHpf ScanningStart: 01-87-9568Ltsdutxfye exam chest single viewTe Pastrana Work Phone: Start: 88-85-5096Nrsoizoplm microscopic onlyETAN EITCHESStart: 12-19-1996Juplo dip stick/tablet rgnt auto w/o microscopyETAN EITCHESStart: 13-43-2988OOZ CHIPSETAN EITCHESStart: 72-76-0732Wq abdomen & pelvis w/contrast materialETAN EITCHESStart: 58-84-2436Juueyzthwr microscopic onlyChristina Audrey Arzola Work Phone: Start: 64-51-0415Qncbs dip stick/tablet rgnt auto w/o microscopyChristina R Dariusz Work Phone: Start: 12-58-6168FCXEGZ PERIPHERAL IVETAN EITCHES Start: 31-88-6808Egqsy count complete auto&auto difrntl wbcETAN EITCHESStart: 41-89-0364Yp abdomen & pelvis w/contrast materialChristina R Dariusz Work Phone: Start: 02-53-7882Xendw count complete auto&auto difrntl wbcChristina R Dariusz Work Phone: Start: 28-90-5561Nevmbhfzghwl chorionic qualitative Toniegen Arzola Work Phone: Start: 21-79-3099Lsnqr of lactateChristina R Dariusz Work Phone: Start: 23-31-5566Gabxg of lactateETAN EITCHESStart: 46-53-4832Oqjmxxhapf microscopic onlyETAN EITCHESStart: 12-02-8715Ldiyv dip stick/tablet rgnt auto w/o microscopyETAN EITCHESStart: 07-70-4180Mf abdomen & pelvis w/contrast materialETAN EITCHESStart: 59-62-0864Faelj count complete auto&auto difrntl wbcETAN EITCHESStart: 13-02-4291YZEWPZ PERIPHERAL IVETAN EITCHESStart: 18-45-9550Mzchl of lactateEtan E Eitches Work Phone: Start: 90-67-0744Bspncrmsje microscopic onlyEtan E Eitches Work Phone: Start: 30-52-3215Gtmfz dip stick/tablet rgnt auto w/o microscopyEtan E Eitches Work Phone: Start: 83-25-5935Zn abdomen & pelvis w/contrast materialEtan E Eitches Work Phone: Start: 56-13-4407Nirfr of lipaseEtan E Eitches Work Phone: Start: 73-96-0581Niuxf count complete auto&auto difrntl wbcEtan E Eitches Work Phone: Start: 07-14-2488Oexgj of thyroid stimulating hormone tshSr [employer] Work Phone: Start: 58-03-6350Inefj of thyroxine totalSr [employer] Work Phone: Start: 77-86-2959Jgjom count complete auto&auto difrntl wbcSr Sanjeev P [employer] Work Phone: Start: 87-20-4000Zavvchjesmvcd metabolic panelSr [employer] Work Phone: Start: 47-92-8956Gwel integ musc & nrv head neck&posterior trunkWHITGIOVANI STEINBERGStart: 98-13-0555LFCDQRXP OF SPINAL NERVE LAYO Marshall repairThomas R Eagle Work Phone: Ligation of fallopian tubeThomas Audrey Dan Work Phone: SARS Antigen (LFIA)DO Jose Lan Work Phone: NEGATED: Highlighted row has not occurred!Total colonoscopyThomas Audrey Dan Work Phone: Plan of Treatment DateCare ActivityDetailAuthorStart: 20-44-8051Qyvwmlnb Vaccine (1 of 2)Shingles Vaccine (1 of 2)[place], [place]Start: 52-20-7714Ndkldb Vaccines (1 of 2) Zoster Vaccines (1 of 2)[facility]: 07-09-2028 Screening for malignant neoplasm of cervixNOMS HealthcareStart: 07-09-2026 Screening for malignant neoplasm of cervixNOMS HealthcareStart: 10-13-2024 End: 41-60-9994Lxstjia encounter dyfysznow67/13/2025 10:20 AM EDT Office Visit [facility] [address] [place] [address] Nigel Lawson MD [address] [place] [address] [facility] ENDOCRINOLOGYStart: 10-06-2024 End: 95-56-4004Vhgzcqo encounter xfgnujriy74/06/2025 9:00 AM EDT Office Visit [address] [place] [phone] Waldo Sow DO [address] [place] [address] [address] [place] [address] [facility]: 15-45-7833Jwqdwzntz for malignant neoplasm of breastMaogramGrand [facility]: 07-14-2024 End: 546209-kpjnyhvwhjjdkw D3 [Mass/volume] in Serum or PlasmaVitamin D 25 hydroxy Total Lab Routine Type 2 diabetes mellitus with hyperglycemia, with long-term current use of insulin ([facility]) Expected: 07/14/2024 (Approximate), Expires: 07/14/2025[facility] HealthcareComment on above:Expected: 07/14/2024 (Approximate), Expires: 07/14/2025Start: 07-14-2024 End: 23-19-6289B-peptideC-peptide Lab Routine Type 2 diabetes mellitus with hyperglycemia, with long-term current use of insulin ([facility]) Expected: 07/14/2024 (Approximate), Expires: 07/14/2025[facility] Work Phone: Comment on above:Expected: 07/14/2024 (Approximate), Expires: 07/14/2025Start: 07-14-2024 End: 54-56-3700Ehklh 1996 panel - Serum or PlasmaLipid panel Lab Routine Type 2 diabetes mellitus with hyperglycemia, with long-term current use of insulin ([facility]) Expected: 07/14/2024 (Approximate), Expires: 07/14/2025[facility] Comment on above:Expected: 07/14/2024 (Approximate), Expires: 07/14/2025Start: 07-14-2024 End: 56-74-0009Mtrzardtdkdy/Creatinine panel in random UrineMicroalbumin / creatinine urine ratio Lab Routine Type 2 diabetes mellitus with hyperglycemia, withlong-term current use of insulin ([facility]) Expected: 07/14/2024 (Approximate), Expires: 07/14/2025[facility] HospitalComment on above:Expected: 07/14/2024 (Approximate), Expires: 07/14/2025Start: 07-14-2024 End: 48-15-6860Ilhqd function panelRenal function panel Lab Routine Type 2 diabetes mellitus with hyperglycemia, with long-term current use of insulin ([facility]) Expected: 07/14/2024 (Approximate), Expires: 07/14/2025[facility] Comment on above:Expected: 07/14/2024 (Approximate), Expires: 07/14/2025Start: 07-14-2024 End: 22-14-8208Dfhugub encounter tejzbidyp24/11/2025 10:50 AM EST Office Visit [facility] [address] [place] [address] Nigel Lawson MD [address] [place] [address] Type 2 diabetes mellitus with hyperglycemia, with long-term current use of insulin ([facility] ENDOCRINOLOGYComment on above: Type 2 diabetes mellitus with hyperglycemia, with long-term current use of insulin ([facility])Start: 05-19-2024 End: 59-37-9605Kjkvcdm encounter lreotggan90/17/2024 2:30 PM EST Office Visit [facility] [address] [place] [phone] Nigel Lawson MD [address] [place] [address] [facility] ENDOCRINOLOGYStart: 78-74-8459Imxshmrqt B core antibody measurementFirelands Regional Medical Center South Campustart: 84-33-0570ZaebriqheFirelands Regional Medical Center South Campustart: 10-88-6581YqueaavhmFirelands Regional Medical Center South Campustart: 01-31-2024 End: 76-88-0928Ptqpatc encounter ddqjaavvn56/30/2024 7:30 AM EDT Procedure Visit [facility] Mely Steinberg MD [address] [place] [address] [facility] EXT DEPStart: 80-27-2662XieajmdomFirelands Regional Medical Center South Campustart: 90-40-6120Nibdlkj C-peptide measurementFirelands Regional Medical Center South Campustart: 08-06-2023 End: 65-23-1027Zmhldrn encounter zvurohcan07/05/2024 10:45 AM EST Office Visit [facility] [address] [place] [address] Mely Steinberg MD [address] [place] [address] [facility] SWS OBStart: 08-06-2023 End: 40-74-7027Enchsqynrkcq / ancillary services managementNOMS SWS OBStart: 07-27-2023 End: 57-19-2177DHG Breast - bilateral screeningBilateral screening mammogram with tomosynthesis Imaging Routine Encounter for screening mammogram for malignant neoplasm of breast Expected: 07/27/2023, Expires: 09/06/2024[facility] Work Phone: comment on above:Expected: 07/27/2023, Expires: 09/06/2024Start: 07-09-2023 End: 16-49-991052117579-Uzuinhffidgutlnzpbo49-Ryvggnnvvabvtqltpyx Lab Routine Abnormal vaginal bleeding Expected: 07/09/2023 (Approximate), Expires: 07/09/2024[facility] HealthcareComment on above:Expected: 07/09/2023 (Approximate), Expires: 07/09/2024Start: 07-09-2023 End: 24-86-8005Dpvcdzmk identified in Urine by CultureUrine culture Microbiology Routine Abnormal vaginal bleeding Expected: 07/09/2023 (Approximate), Expires: 07/09/2024[facility] HealthcareComment on above:Expected: 07/09/2023 (Approximate), Expires: 07/09/2024Start: 07-09-2023 End: 78-86-4743Knwvsayf stimulating hormoneFollicle stimulating hormone Lab Routine Abnormal vaginal bleeding Expected: 07/09/2023 (Approximate), Expires: 07/09/2024[facility] HealthcareComment on above:Expected: 07/09/2023 (Approximate), Expires: 07/09/2024Start: 85-61-8154BmptgwzblFirelands Regional Medical Center South Campustart: 64-26-5119XGCGY-19 Vaccine ( season)COVID-19 Vaccine ()[facility]: 22-16-6717GvdlnbrkoFirelands Regional Medical Center South Campustart: 15-17-2085IxeoemiiqFirelands Regional Medical Center South Campustart: 11-19-1060Kxpzuhim to cardiologistFirelands Regional Medical Center South Campustart: 91-46-4679Oxdwsqex admissionFirelands Regional Medical Center South Campustart: 02-01-2021 Influenza vaccinationFlu vaccine (#1)[facility] [employer] Phone: start: 49-12-3896Xayujnlcq vaccinationFlu vaccine (#1) [facility]: 18-02-0073Dervzsfqx vaccinationFlu vaccine (#1)[facility]: 40-92-0387XXaQ/Tdap/Td Vaccines (1 - Tdap)DTaP/Tdap/Td Vaccines (1 - Tdap)[facility]: 01-16-1050Dgsguivh cancer screenCervical cancer screenOhioHealth [facility] Medical Center: 2004 Screening for malignant neoplasm of cervixUnOhioHealth [facility] Start: 86-43-6946WSpQ/Tdap/Td vaccine (1 - Tdap)DTaP/Tdap/Td vaccine (1 - Tdap) [facility]: 71-15-3047Lvojanqau B Vaccines (1 of 3 - 19+ 3-dose series)Hepatitis B Vaccines (1 of 3 - 19+ 3-dose series)[facility]: 78-13-2120Toihh screening for proteinDiabetes: Urine Protein ScreeningGrand [facility]: 91-35-8095Ssowengxj C screening Hepatitis C ScreeningGrand Lake Joint [facility]: 14-40-0057SGO screenHIV screenOhioHealth Grant Medical Center: 45-05-4593MBM screeningHIV screen [facility]: 49-20-9141Lkzlpuoaw vaccinationVaricella Vaccines (1 of 2 - 13+ 2-dose series)[facility]: 1995 COVID-19 Vaccine (1)COVID-19 Vaccine (1)[facility] Phone: start: 83-52-5594YZnQ/Tdap/Td vaccine (1 - Tdap) DTaP/Tdap/Td vaccine (1 - Tdap)[facility]: 58-61-0126Jidvzhrn foot examinationDiabetes: Foot ExamUnCrystal Clinic Orthopedic Center: 74-45-6854Ksclzmms screeningDiabetes: Retinopathy ScreeningUnMethodist Hospital of ClevelandStart: 61-76-9836Xbtbprqhldxm 0-64 years Vaccine (1 of 1 - PPSV23) Pneumococcal 0-64 years Vaccine (1 of 1 - PPSV23)[facility]: 36-51-4347Oxkxyvzirujp 0-64 years Vaccine (1 of 2 - PPSV23)Pneumococcal 0-64 years Vaccine (1 of 2 - PPSV23)[facility] [employer] Phone: start: 93-47-0025LUW Vaccines (1 of 1 - Standard series)MMR Vaccines (1 of 1 - Standard series)[facility] Start: 03-75-4709Tiitxdjke vaccine (1 of 2 - 2-dose childhood series)Varicella vaccine (1 of 2 - 2-dose childhood series)[facility]: 1983 Hemoglobin A1c measurementDiabetes: Hemoglobin S4HHxfdrlmnylGrand [facility] Hospital: 59-89-3401Dnmxybttg C screeningHepatitis C [facility] Phone: start: 58-19-4115SXH screeningHIV ScreeningGrand Lake [facility]: 52-02-9278Tvmag panelLipid PanelGrand Lake Joint [facility]: 88-15-7514Fctog screening for proteinDiabetes: Urine Protein ScreeningGrand Lake [facility]: 72-15-0029Ndnomh Adult PhysicalYearly Adult PhysicalUnOhioHealth Dublin Methodist HospitalCoisol Cortisol Lab Routine Abnormal vaginal bleeding Ordered: 07/09/2023[facility] HospitalComment on above:Ordered: 4CT ABDOMEN PELVIS W IV CONTRAST Additional Contrast? NoneCT ABDOMEN PELVIS W IV CONTRAST Additional Contrast? None Imaging STAT 02/23/2020 9:02 AM [place], [place] End: 98-52-4357Gxuxbne, UrineCulture, Urine Microbiology STAT One Time for 1 Occurrences starting 03/29/2020 until 03/29/2020[place], [place]Comment on above:One Time for 1 Occurrences starting 03/29/2020 until 03/29/2020Culture, UrineCulture, Urine Microbiology STAT 03/29/2020 6:15 PM [facility] [place] RJGR-wpktitgEJVW-dexgodz Lab Routine Abnormal vaginal bleeding Ordered: 07/09/2023[facility] HealthcareComment on above:Ordered: 07/09/2023ECG 12 LeadECG 12 Lead ECG Routine Pre-operative clearance 10/01/2023 4:00 PM [facility] Work Phone: EstradiolEstradiol Lab Routine Abnormal vaginal bleeding Ordered: 07/09/2023[facility] HealthcareComment on above:Ordered: 07/09/2023 EstroneEstrone Lab Routine Abnormal vaginal bleeding Ordered: 07/09/2023[facility] HealthcareComment on above:Ordered: 07/09/2023Hemoglobin A1c measurement Hemoglobin A1c Lab Routine Abnormal vaginal bleeding Ordered: 07/09/2023[facility] HealthcareComment on above:Ordered: 07/09/2023Hepatitis C virus IgG Ab [Presence] in Serum or Plasma by ImmunoassayAdams County Hospital Hepatitis C virus RNA [log units/volume] (viral load) in Serum or Plasma by HARJINDER with probe detectionAdams County HospitalHepatitis C virus RNA [Units/volume] (viral load) in Serum or Plasma by HARJINDER with probe detection [facility] HospitalHIV 1+2 Ab+HIV1 p24 Ag [Presence] in Serum or Plasma by ImmunoassayAdams County HospitalIgM [Mass/volume] in Serum or PlasmaAdams County HospitalIron and Iron binding capacity panel - Serum or PlasmaIron and TIBC Lab Routine Abnormal vaginal bleeding Ordered: 07/09/2023[facility] HealthcareComment on above:Ordered: 07/09/2023 End: 06-41-2595Kvkytth, SepsisLactate, Sepsis Lab Timed Now Then Every 2hr for 2 Occurrences starting 01/23/2021 until 01/23/2021, 1 completedHenry County Hospital MOVL Work Phone: comment on above:Now Then Every 2hr for 2 Occurrences starting 01/23/2021 until 01/23/2021, 1 completedPatient EducationCleveland Clinic South Pointe Hospital Ctr Work Phone: Patient referralCleveland Clinic South Pointe Hospital [facility]tr Work Phone: Testosterone, free, totalTestosterone, free, total Lab Routine Abnormal vaginal bleeding Ordered: 07/09/2023[facility] HealthcareComment on above:Ordered: 07/09/2023Thyrotropin [Units/volume] in Serum or PlasmaTSH Lab Routine Abnormal vaginal bleeding Ordered: 07/09/2023[facility] HealthcareComment on above:Ordered: 07/09/2023Thyroxine measurementAdams County Hospital Immunizations Immunization DateImmunizationNotesCare GenwmndeXzpvypeu35-74-8925Pewhfif 20 Bill Dan Other [facility]09-29-2023Seasonal, quadrivalent, recombinant, injectable influenza vaccine, preservative freeThomas Eagle Other [facility]09-29-2023influenza, live, intranasal, quadrivalentUrvashiomas Eagle Other [facility] Payers DatePayer CategoryPayerPolicy [id number]-scr [id number] (Managed Care) [id number] 2018Medicaid .[id number] Health xxxxxxxxxxxx 2016-Present [phone] [place] [address]995ryguyavhewuo [id number]20[id number] 2.16.840.1.527650.3.57[id number] 2.840.1.915274.3.57[id number] 2.840.1.874174.3.57[id number] 2.840.1.283495.3.57[id number] 2.840.1.825873.3.57[id number] 2.840.1.401755.3.57[id number] 2.840.1.978658.3.579.2.70327-17-5756Cdjqeud1249652 2.840.1.013552.3.57[id number] 2.840.1.508852.3.579.2.45953-83-0605Qozdtpv8785836 2.840.1.047693.3.579.2.46232-66-7424Wnznmgr6795175 2.840.1.242855.3.57[id number] 2.840.1.804657.3.579.[id number] 2.840.1.362195.3.579.2.26331-78-2807Xyauizm797078088 2.840.1.557056.3.579.[id number] 2.840.1.402926.3.579.[id number] 2.840.1.641288.3.579.2.5[id number] 2.0.1.829273.3.57[id number] 2.840.1.277758.3.579.2.861945-00-1228Gboheze4744992 2.0.1.769895.3.579.2.156612-41-3770Vnffhnn4665240 2.0.1.198133.3.57[id number] 2.0.1.418942.3.579.2.440233-40-2896Fajgvep01026213703058-31-6156Kvrtpxk [id number] 2.840.1.972153.64Cmjyoya12699029 2.0.1.852988.3.579.2.531 Smbzqve54300527 2.840.1.512593.3.579.2.208Pvbyulh88876556 2.0.1.431007.3.579.2.429Tvqsrja63864015 2.0.1.855545.3.579.2.531 Social History DateTypeDetailFacilityStart: 10-04-2017 End: 63-51-6804Jqzzdux smoking status NHISCurrent every day smokerT[place], KYHistory of tobacco useCigarette SmokerOhioHealth Grant Medical Center: 10-04-2017 End: 39-96-4449Aryeqztitw smoked current (pack per day) - ReportedHomberg Memorial Infirmary on above:marijuana use;1 PPD;Start: 10-04-2017 End: 68-86-7194Hcgwpzr intakeCurrent drinker of alcohol (finding)[facility] Hospitalart: 17-24-6035Zfvjlcp Comment3-4 cigs a dayOhioHealth Grant Medical Center: 14-26-3805Klkruts CommentrarelyMercy [facility], KYStart: 96-79-6561Oae Assigned At BirthNot on fileT[place]el, KYStart: 02-21-2020 End: 80-85-9678Cazivqf use and exposureNever usedT[place], KYStart: 09-21-2023 End: 05-81-9248Jcfflgzv to SARS-CoV-2 (event)Not sureT[place], KYStart: 07-09-2023 End: 68-96-3637Nqe Assigned At [facility] [employer] Other Start: 01-20-2022 End: 66-74-1077Rtyahhb smoking status NHISSmoker (finding)[facility] Campustart: 94-08-6248Fwz Assigned At [facility]cy Hospitaltart: 49-01-8143Ughyllr smoking status NHISNever smoked tobacco (finding)[facility] Campustart: 59-70-4330Jwupdrn use and exposureUser of smokeless tobaccoNOWI HealthcareStart: 07-09-2023 End: 10-79-2497Irtbony intakeLifetime non-drinker (finding)[facility] HealthcareHow often to you have a drink containing alcohol?NeverNOMS HealthcareHow many standard drinks containing alcohol do you have on a typical day?Patient does not drinkNOMS HealthcareStart: 07-95-3290Vjhqclq Tdfmhdz28-09 cigarettes/day, within 5minsutes after waking upNOMS HealthcareStart: 10-15-2023 End: 69-45-3049Caflvdlvg beverage intakeEx-drinker (finding)[facility] Start: 95-61-6807YskDxvpxz (finding)[facility] HospitalNEGATED: Highlighted rowAdams County Hospital Medical Equipment Procedure CodeEquipment CodeEquipment Original TextEquipment IdentifierDatesMes Surg Hortencia Plug 1.6x1.9in [id number]_impStart: [id number], [id number], [id number], [id number]: 06-05-2023 End: 92-27-8148Owovyve (Onetouch Delica Plus Lancet) 33 gauge miscStart: 58-22-8183RjqDfswb Delica Plus 33 G lancetsStart: 02-19-2024 End: 59-50-0196Xrqlmnq (Onetouch Delica Plus Lancet) 33 gauge miscStart: 80-09-1367MmtKtaar Delica Plus 33 G lancetsStart: 02-19-2024 End: 10-54-7613Rqkhkyw (Onetouch Delica Plus Lancet) 33 gauge miscStart: 16-28-5098GkaDfqtv Delica Plus 33 G lancetsStart: 02-19-2024 End: 02-19-2024 Goals DatePatient GoalDesired Activity/State Functional Status Intc[id number] statusPatient at Baseline [facility] Work Phone: Mental Status Ausd[id number] functionCognitive Status [facility] Work Phone: Clinical Notes 01-23-2021 to 10-06-2024 Note Date & [id number] History of Present illness Narrative* Waldo Sow, DO - 10/06/2024 9:00 AM EDT Chief Complaint Patient presents with Annual Exam [...] past history. 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 She denies angina or nitrate usage recurrent hospitalizations again her only complaint is pedal andpretibial edema. She has never had heart failure [...] Attestation By signing my name below, IKamilah LPN , Scribe attest that this documentation has been prepared under the direction and in the presence of Marshal Sow DO. Provider Attestation - Scribe documentation All medical record entries made by the Scribe were at my direction and personally dictated by me. Ihave reviewed the chart and agree that the record accurately reflects my personal performance of the history, physical exam, discussion and plan. documented in this [facility] Work Phone: 1(166) 895-122205-06-2025 Instructions* Patient Instructions* Kamilah Oliveros LPN - 10/06/2024 9:00 AM [...] exercise. Follow up ordered as needed only * Attachments The following attachments cannot be sent through Care Everywhere. * Mediterranean Diet (Irish) documented in this encounter[facility] Work Phone: 1([phone]) 495-671104-11-2025 Telephone encounter Note* Telephone Encounter - Micheal James - 09/11/2024 8:07 AM EDT Pt requesting refill for Lantus to [facility] please and thank you! [facility] HospitalQccgukhadn64-59-1818 Miscellaneous Notes* Telephone Encounter - Micheal James - 09/11/2024 8:07 AM EDT Pt requesting refill for Lantus to [facility] please and thank you! documented in this encounterUniversity of Missouri Children's HospitalCpmsrcbpic01-61-1698 History of Present illness Narrative* Alden Lin NP - 09/09/2024 1:50 PM EDT [address] , [address] [facility], [address] P: [phone] F: [phone] HPI Historian of HPI: patient Natividad Bonner [...] RAPID FLU 2. Bronchitis with asthma, acute (CMS/HCC) (Primary) Diagnosis and treatment discussed with patient. Immediate eval if new, worsening sx otherwise f/u with PCP if sx not resolved with course of steroid, sooner if not improving over next 3-4 days. To EDfor trouble swallowing secretions, shortness of breath, chest [...] 21 tablet; Refill: 0 documented in this encounterUniversity of Missouri Children's HospitalPgdmzlrdyi00-57-6456 History of Present illness Narrative* Nigel Lawson MD - 07/14/2024 10:50 AM EST Natividad Bonner is a 38 y.o. female No ref. provider found presents with chief complaint of Diabetes and Follow-up HPI: IM : 07/2024 follow up visit on 07/14/2024 A1c 11.3, bg 171, Lantus 40 units, Trulicity 3 mg once , c/o metforminto 1000 twice a day, Jardiance 25. CGM 018-82 avg 233, was off her meds for almost 2 months due My [employer] insurance, now for almost 2 weeks. IM : 01/2024 follow up visit on 01/28/2024 A1c 9.1, bg 221, on Lantus 40 at bedtime, Trulicity 3 mg once , c/o metformin to 1000 twice a day, Jardiance 25. CGM 035-65 avg 182. IM : 10/2023 follow up visit on 10/22/2023 bg 181, on Lantus 40 at bedtime, Trulicity 3 mg once a week, c/o metformin to 1000 twice a day, Jardiance 25. CGM 164-35 AVG 169, lab TG 162,TC 125, LDL [...] diagnosed long time ago for pre-diabetes. Eye exammore than 1 year and I thought they [...] MG capsule 1 capsule, Nightly glucose blood ([employer] Ultra Test) test strip USE THREE TIMES A DAY hydrocortisone 2.5 % cream insulin pen needle ([employer] Pen Sandy 31G) 31G X 8 mm misc USE ONCE DAILY Jardiance 25 MG 1 tablet, Daily Lancets (KnowthenaTouch Delica Plus Yptfze34T) misc 100 Lancets, Subcutaneous, 2 times daily [...] Past Medical History: Diagnosis Date Anxiety Asthma ([facility]) Bipolar disorder ([facility] Depression ([facility]) Dietary counseling and surveillance Essential (primary) hypertension ([facility]) History of being hospitalized 01/2022 myocardial infarction Hypertension ([facility]) Insomnia Irregular menses Mixed hyperlipidemia ([facility]) Morbid obesity with body mass index (BMI) of 40.0 to 49.9 ([facility]) Type 2 diabetes mellitus with hyperglycemia ([facility]) Type II diabetes mellitus ([facility]) Vitamin D deficiency, unspecified Past Surgical [...] recent change. No heart burn, liver or gallbladderdisease; no rectal bleeding or pain : No urinary pain , frequency or odor. MUSCULOSKELETAL: No muscle pain or cramps; no extremity weakness.No joint pain, stiffness, swellingor limitation of movement NEUROLOGY: No H/O seizures, [...] hyperglycemia, with long-term current use of insulin ([facility]) - POCT glucose manually resulted - [...] a day. Vitamin D deficiency Primary hypertension ([facility]) Hyperlipemia, mixed ([facility]) Encounter for dietary consultation Diet and exercise reviewed with the patient Class 3 severe obesity due to excess calories with serious comorbidity and body mass index (BMI) of45.0 to 49.9 in adult ([facility]) Follow up in about 3 months (around 10/11/2024). documented in this encounterUniversity of [facility] Children's [id number] Evaluation note* Author Raoul Moon [facility] HospitalAuthoredOctun[facility] 2023 2:26pmMultiple problems, medication management, review and interpretation of labs ordered by others, time [facility] Work Phone: [phone]) 751-186110-29-2024 Evaluation note* Author Raoul Moon [facility] HospitalAuthoredOctun[facility] 2023 1:26pmMultiple problems, medication management, review and interpretation of labs ordered by others, time [facility] Work Phone: [phone]) 114-373904-30-2024 Evaluation + Plan note* Assessment & Plan Note - RENÉ Moses - 10/01/2023 4:18 PM EDTAssociated Problem(s): Current every day smoker 1 pack per day Continued every day tobacco use. Have reviewed the negative cardiovascular impact of nicotine. Continues to decline pharmacological assistance. [facility] Work Phone: 1([phone]) 446-258604-30-2024 Miscellaneous Notes* Assessment & Plan Note - RENÉ Moses - 10/01/2023 4:18 PM EDTAssociated Problem(s): Current every day smoker 1 pack per day Continued every day tobacco use. Have reviewed the negative cardiovascular impact of nicotine. Continues to decline pharmacological assistance. documented in this encounterUK Healthcare Work Phone: 1([phone]) 531-545904-30-2024 History of Present illness Narrative* RENÉ Moses [...] History of Present Illness Patient presents to [facility] to obtain cardiac risk stratification prior to a OPAL POLISHER ablation procedure. Surgeon: Dr. Steinberg Planned date: yet to be scheduled Prior cardiovascular history: Jan 2022 cardiac cath: minimal disease with diffuse distal small vessel disease Jan 2022 TTE: LVEF 60%, no valvular heart disease No history of dysrhythmias Patient presents to the office today with activity level > 4 METS. Daily activity includes: ADLs, walking her dog, works at [employer]. Total DASI: 44.7 METs: 8.23 EKG in office: Normal sinus rhythm without evidence of ischemia ACC/AHA guidelines: 1. Major clinical markers: -Acute coronary syndrome or WI within 30 days: No -Decompensated heart failure: No -Significant arrhythmia: No -Severe valvular heart disease; no 2. Intermediate clinical markers -History of ischemic heart disease (prior WI, current chest pain secondary to ischemia, use [...] hypertension: No Surgery specific risk: Low risk OPAL POLISHER ablation According to ACC/AHA guidelines, a patient [...] risk stratification prior to a low risk OPAL POLISHER procedure. At this time, there are no [...] we can help. You may also call 9-343-PXOC-NOW for free resources and assistance. Sveta Garnica MSN, CAMERA MECHANIC-BURLESQUE DANCER, PMHNP-[facility] Please excuse any errors in grammar or translation related to this dictation. Voice recognition software was utilized to prepare this document. documented in this encounterUK Healthcare Work Phone: 1([phone]) 101-645504-30-2024 Instructions* Patient Instructions* RENÉ Moses - 10/01/2023 [...] we can help. You may also call 8-660-LIFB-NOW for free resources and assistance. documented in this encounterUK Healthcare Work Phone: [phone]) 878-929802-06-2024 History of Present illness Narrative* Mely Steinberg [...] % cream, , Disp: , Rfl: Lancets (KnowthenaTouch Delica Plus Hromat26O) [facility], , Disp: , Rfl: metFORMIN XR (Glucophage-XR) 500 MG 24 hr tablet, , Disp: , Rfl: mirtazapine (Remeron) 15 MG tablet, Daily at bedtime, Disp: , Rfl: KnowthenaTouch Ultra test strip, , Disp: , Rfl: [...] of being hospitalized 01/2022 myocardial infarction Hypertension ([facility]) Type II diabetes mellitus ([facility]) Past Surgical History: Procedure Laterality Date TUBAL [...] abnormal U/A Results can be found in Liii[facility]hart in 7 days Return 1 year/ultrasound visit documented in this encounterUniversity of Missouri Children's [id number] Evaluation note* Encounter Date Diagnosis Assessment Notes Treatment Notes Treatment Clinical Notes Jul, Type 2 diabetes jodee itus with hyperglycemia, unspecified whether rat exterminator insulin use (ICD-10 - E11.65) [employer] Other 01-03-2024 Evaluation note* Encounter Date Diagnosis Assessment Notes Treatment Notes Treatment Clinical Notes Jun, Type 2 diabetes jodee itus with hyperglycemia, without long-term current use of insulin (ICD-10 - E11.65) She feels she can make some dietary changes and we will increase her Trulicity to 1.5 mg weekly. I advised her to discuss her Seroquel with her psychiatrist to see if there is a better metabolic option Jun,leeding hemorrhoids (ICD-10 - K64.9)She can use the hydrocortisone cream as needed, referral sent for colonoscopy Jun,UQ abdominal pain (ICD-10 - R10.11)We will proceed with ultrasound and call with results Jun,onstipation (ICD-10 - K59.00)Since she just started the Metamucil she will slowly titrate this over the next 1 to 2 weeks and ifnot seeing benefit she will call and I will add a prescription medication for constipation Jun,Hidradenitis suppurativa (ICD-10 - L73.2)Referral sent Jun,Increased urinary frequency (ICD-10 - R35.0)If symptoms do not improve over the next 1 to 2 weeks she will complete the urinalysis [employer] Other 05-02-2023 Evaluation note* Encounter Date Diagnosis Assessment Notes Treatment Notes Treatment Clinical Notes October, Type 2 diabetes jodee itus with hyperglycemia, without long-term current use of insulin (ICD-10 - E11.65) We discussed her medications and she would like to switch from Januvia to Trulicity. We discussed the common side effects and she would like to proceed. I will get her a new glucometer and she will be able to test once a day October,OAB (overactive bladder) (ICD-10 - N32.81)Since she previously had a work-up, we will start oxybutynin and see how she responds. If symptoms do not improve with oxybutynin we will need to order additional testing October,Essential (primary) hypertension (ICD-10 - I10)Continue current medication [employer] Other 08-24-2022 Evaluation note* Encounter Date Diagnosis Assessment Notes Treatment Notes Treatment Clinical Notes Jan, Moderate persistent asthma witho ut complication (ICD-10 - J45.40) Jan,Type 2 diabetes mellitus with hyperglycemia, without long-term current use of insulin (ICD-10 - E11.65)Continue efforts with diabetic diet and exercise Jan,oronary artery disease involving lower [place] coronary artery of lower brule heart, unspecified whether angina present (ICD-10 - I25.10)We discussed the need to quit smoking, she plans to try to cut back slowly. Given her chronic anxiety and depression issues I do not feel Chantix is a good idea and she does not want to try patches or gum Jan,Essential (primary) hypertension (ICD-10 - I10)Blood pressure remains at goal Jan,Mixed hyperlipidemia (ICD-10 - E78.2)Continue statin and I recommended working on the Mediterranean diet [employer] Other 08-22-2022 [facility]08[facility]-2022 Progress note Author Wes Nunes [facility] January 21, 2022 4:02pmNote Date/TimeAugust 2021 4:02pmBaird[place] [address] Hospitalist Progress Note Signed Patient: Natividad Bonner MR#: [id number] : 1985 Acct:[id number] Age/Sex: 36 / F Adm Date: 2 Loc: 4N Room: 7W6079-1 Type: ADM INOo Attending Dr: Wes Nunes [...] 01/20/22 09:00 01/21/22 09:10 Omeprazole 20 Mg Capsule. PO 01/20/23 08:59 20 mg DAILY EMELY [...] code Documented By: Wes Nunes MD 01/21/22 160 Signed By: <Electronically signed by Wes Nunes MD> 01/21/22 1602 [facility] Work Phone: 1(413) 308-873908-21-2022 Progress note Author Waldo Varma [facility] January 21, 2022 10:35amNote Date/TimeAugust 2021 10:33amBaird[place] [address] Cardiology Progress Note Signed Patient: Natividad Bonner MR#: [id number] : 1985 Acct:[id number] Age/Sex: 36 / F Adm Date: 2 Loc: Room: [address] [place] [address] Type: ADM INOo Attending Dr: Wes Nunes MD Copies to: ~ Date of Service: 01/21/2022 Subjective Principal diagnosis: Non-ST segment elevation WI Interval history: Patient had a stable and [...] MPV Neut % (Auto) Lymph % (Auto) Lawrence % (Auto) Eos % (Auto) Baso % (Auto) Neut # (Auto) Lymph # (Auto) Lawrence # (Auto) Eos # (Auto) Baso # [...] % (Auto) 59.8 Lymph % (Auto) 31.6 Lawrence % (Auto) 4.6 Eos % (Auto) 2.9 Baso % (Auto) 1.1 Neut # (Auto) 6.2 Lymph # (Auto) 3.3 Lawrence # (Auto) 0.5 Eos # (Auto) 0.3 [...] MPV Neut % (Auto) Lymph % (Auto) Lawrence % (Auto) Eos % (Auto) Baso % (Auto) Neut # (Auto) Lymph # (Auto) Lawrence # (Auto) Eos # (Auto) Baso # [...] after midnight. Documented By: Waldo Varma MD [id number] Signed By: <Electronically signed by MD Waldo Varma> 01/21/22 1035 [facility] Work Phone: 1(615) 798-458708-20-2022 Progress note Author Wes Nunes [facility] January 20, 2022 4:45pmNote Date/TimeAugust 2021 4:45pmBaird[place] [address] Hospitalist Progress Note Signed Patient: Natividad Bonner MR#: [id number] : 1985 Acct:[id number] Age/Sex: 36 / F Adm Date: 2 Loc: 4N Room: [address] [place] [address] Type: ADM INOo Attending Dr: Wes Nunes MD Copies to: ~ Date of Service: 01/20/2022 Subjective Subjective Narrative: Patient seen and examined. Patient is awake, alert and oriented x3. She deniesany chest pain, shortness of breath, cough. States that she does not like hospitals and is very anxious and does not wantto stay in the hospital and is requesting [...] <Electronically signed by Wes Nunes MD> 01/20/22 8555 [facility] Work Phone: 1(777) 190-376908-20-2022 Consult note Author Waldo Varma [facility] January 20, 2022 12:45pmNote Date/TimeAugust 2021 12:45pmBaird[place] [address] Cardiology Consult Note Signed Patient: Natividad Bonner MR#: [id number] : 1985 Acct:[id number] Age/Sex: 36 / F Adm Date: 2 Loc: Room: [address] [place] [address] Type: ADM INOo Attending Dr: Wes Nunes MD Copies to: MD Bill Silver DO William Patrick McGuinn, MD~ Cardiology HPI History of Present Illness Consult Date: 01/20/22 Reason for Consult: Non-ST segment elevation myocardial infarction HPI: Ms. Bonner is a 36 year old female seen for the above She is an individual with no known history of heart disease. Saturday morning shehad chest discomfortand that lasted all day and because of this she ultimately went to the emergency room in [place]. First troponin normal but second troponin elevated because of this she was transferred here. Subsequent troponins have continued to rise but her pain went away She acknowledges a history of treated diabetes and hypertension. She is a smoker. Lipid status unknown. She states family does not have coronary disease. The patient was advised that she has acute coronary syndrome and/or non-ST segment elevation WI Robles recommend pharmacologic stabilization and subsequent angiographic evaluation. [...] x10E3/uL Lymph # (Auto) 2.8 (1.00-4.8) x10E3/uL Lawrence # (Auto) 0.6 (0.0-0.8) x10E3/uL Eos # [...] <Electronically signed by MD Waldo Varma> 01/20/22 1249 [facility] Work Phone: 1(362) 376-843608-20-2022 History and physical note Author Jose Lan [facility] January 20, 2022 4:57amNote Date/TimeAugust 2021 4:53[place] [address] Hospitalist H&P Signed Patient: Natividad Bonner MR#: [id number] : 1985 Acct:[id number] Age/Sex: 36 / F Adm Date: 2 Loc: 4N Room: [address] [place] [address] Type: ADM IN Attending Dr: Jose Lan DO Copies to: DO Bill Ac, ~ HPI DATE OF EXAMINATION: 01/20/22 CHIEF COMPLAINT: Chest pain HISTORY OF PRESENT ILLNESS: Ms. Bonner is a 36-year-old female with a past medical history of depression, diabetes, hypertension, anxiety who presents to our hospital as a transfer from [place] with a chief complaint of chest pain. She states she woke up this morning and had to had 10 chest pain located in the center of her chest which feels like she is being sat on, she denies any exertional component to this. She denies any relief to this with resting. When she went to the [facility] emergency room her initial troponin was [...] when discussing her elevated heart enzymes that [place] told her about she became very tearful. [...] a heparin GTT for diagnosed NSTEMI at [facility] based on troponin going from 8 [...] <Electronically signed by Jose Lan DO> 01/20/22 0457 [facility] Work Phone: 1([phone]) 735-989305-13-2022 Evaluation note* Encounter Date Diagnosis Assessment Notes Treatment Notes Treatment Clinical Notes October, Type 2 diabetes jodee itus with hyperglycemia, without long-term current use of insulin (ICD-10 - E11.65) [employer] Other 03-14-2022 Evaluation note* Encounter Date Diagnosis Assessment Notes Treatment Notes Treatment Clinical Notes Aug, Type 2 diabetes jodee itus with hyperglycemia, without long-term current use of insulin (ICD-10 - E11.65) [employer] Other 02-10-2022 Evaluation note* Encounter Date Diagnosis Assessment Notes Treatment Notes Treatment Clinical Notes Jul, Elevated fasting blood sugar (IC D-10 - R73.01) Jul,Type 2 diabetes mellitus with hyperglycemia, without long-term current use of insulin (ICD-10 - E11.65) Discussed diet/exercise and starting metformin. She declined an order for diabetes education so I recommended her to use the [place] [employer] website. We discussed the importance of taking Metformin with food she will call if she has any side effects Jul,GAD (generalized anxiety disorder) (ICD-10 - F41.1) We will start Escitalopram while she waits to get in with counseling and recovery. We discussed thecommon side effects and that it often takes 3+ weeks to see benefit Jul,Moderate persistent asthma without complication (ICD-10 - J45.40) Hopefully she can quit smoking once her anxiety improves, increase Dulera to the 200/5 due to uncontrolled symptoms Jul,Essential (primary) hypertension (ICD-10 - I10) Continue atenolol for now, may switch to ACEI/ARB in future [employer] Other 08-23-2021 Hospital Discharge instructions* Instructions* Neelima Dutton DO - 01/23/2021 Continue taking Motrin and Tylenol for additional pain. Call and follow-up with your family doctor soon as possible. Return to the emergency department for new, worsening or worrisome symptoms which include but are not limited to increased pain, vomiting and fevers. documented in this [facility] Work Phone: discharge summary Author Yash Garvey [facility] January 22, 2022 4:48pmNote Date/TimeAugust 2021 2:57pmBaird[place] [address] Discharge Summary Signed Patient: Natividad Bonner MR#: [id number] : 1985 Acct:[id number] Age/Sex: 36 / F Adm Date: 2 Loc: Room: [address] [place] [address]: Yash Garvey MD Copies to: [...] psychiatric comorbidities noted above, who presented to [place] ED with complaints of chest pain on January 28 of this year. From there she was transferred to our facility for evaluation and treatment. Serial troponin measurements were consistent with a non-ST elevation myocardial infarction.Patient was treated with antiplatelets, anticoagulants, was seen by cardiology service, and on January 22 sheunderwent coronary angiogram. There was no evidence of any severe obstructive coronary artery disease. Her symptoms resolved and she was discharged home in stable condition on January 22. Aspirin therapywas initiated and will be continued long-term. Statin [...] Low-Cholesterol Additional Instructions: DISCHARGE INSTRUCTIONS FOR CARDIAC MANAGER AGRICULTURAL PHONE NUMBER OF YOUR PHYSICIAN: [phone] PROCEDURE: Heart Cath The following instructions have been prepared to help you care for yourself, or be cared for upon your return home. 1. You were given conscious sedation. Do not operate a vehicle, power tools, make important decisions, or drink alcohol for 24 hours. You might be drowsy or light headed. Return to the Emergency Roomif you have trouble breathing, walking or nausea and vomiting. 2. FOR BLEEDING: Apply continuous pressure to the site and call 911. 3. Operative Site Care: Keep the dressing clean and dry. You may change the dressing only if soiledor wet. You may remove the dressing the [...] cold, numb, blue or white, call the front man immediately. 4. ACTIVITY: You are advised to [...] bottle, follow the instructions on the bottle. [facility] is not responsible for incorrect prescription [...] needed.) Documented By: Yash Garvey MD 01/22/22 8639 Signed By: <Electronically signed by Yash Garvey MD> 01/22/22 1645 [facility] Work Phone: Evaluation note* Diagnosis Left flank pain- Primary Abdominal pain, unspecified site documented in this encounter [facility] Work Phone: evaluation note* Diagnosis Onset Date Resolution Status Anxiety acuteChest painacuteDepressionacuteDiabetesacuteNausea and vomitingacuteNon-ST elevation (NSTEMI) myocardial infarctionacuteTobacco abuseacute [facility] Work Phone: Evaluation noteNo InformationNort [employer] Other Evaluation noteNo assessment information available [facility] Work Phone: Evaluation note* Diagnosis Screening for malignant neoplasm of cervix Screening for malignant neoplasm of the cervix Encounter for gynecological examination without abnormal finding Encounter for screening mammogram for malignant neoplasm of breast Abnormal vaginal bleeding Other specified noninflammatory disorder of vagina documented in this encounter [facility]* Diagnosis Syndrome X (cardiac) ([facility])- Primary Type 2 diabetes mellitus without complication, with long-term current use of insulin ([facility]) Mild CAD Mixed hyperlipidemia Essential hypertension Unspecified essential hypertension Current every day smoker BMI 45.0-49.9, adult (Multi) NSTEMI, initial episode of care ([facility]) Pre-operative clearance Unspecified pre-operative examination documented in this encounter [facility] Work Phone: Evaluation note* Diagnosis Type 2 diabetes mellitus with hyperglycemia, with long-term current use of insulin ([facility])- Primary [facility] Diagnosis Type 2 diabetes mellitus with hyperglycemia, with long-term current use of insulin ([facility])- Primary [facility] Diagnosis Type 2 diabetes mellitus with hyperglycemia, with long-term current use of insulin ([facility])- Primary Vitamin D deficiency Primary hypertension ([facility]) Unspecified essential hypertension Hyperlipemia, mixed ([facility]) Mixed hyperlipidemia Encounter for dietary consultation Class 3 severe obesity due to excess calories with serious comorbidity and body mass index (BMI) of45.0 to 49.9 in adult ([facility]) [facility] Diagnosis Type 2 diabetes mellitus with hyperglycemia, with long-term current use of insulin ([facility])- Primary documented [facility]* Diagnosis Type 2 diabetes mellitus with hyperglycemia, with long-term current use of insulin ([facility]) documented [facility]* Diagnosis Bronchitis with asthma, acute ([facility])- Primary Cough, unspecified type documented in this encounter [facility]* Diagnosis Syndrome X (cardiac)- Primary Type 2 diabetes mellitus without complication, with long-term current use of insulin Mild CAD Mixed hyperlipidemia Essential hypertension Unspecified essential hypertension Current every day smoker BMI 45.0-49.9, adult (Multi) NSTEMI, initial episode of care (Multi) Pre-operative clearance Unspecified pre-operative examination ASHD (arteriosclerotic heart disease) Coronary atherosclerosis of unspecified type of vessel, lower brule or graft Type 2 diabetes mellitus with other specified complication, with long-term current use of insulin Current every day smoker BMI 45.0-49.9, adult (Multi) Localized edema Edema Syndrome X (cardiac) documented in this encounter [facility] Work Phone: History general Narrative - Reported* Type Description Date Medical History HTN Medical HistoryANXIETYMedical HistoryDEPRESSIONMedical HistoryasthmaSurgical HistoryHernia SurgeriesSurgical HistoryTubal LigationHospitalization HistorySEE ABOVE [employer] Other Hospital Discharge instructions Additional Instructions DISCHARGE INSTRUCTIONS FOR CARDIAC MANAGER AGRICULTURAL PHONE NUMBER OF YOUR PHYSICIAN: [phone] PROCEDURE: Heart Cath The following instructions have [...] cold, numb, blue or white, call the front man immediately. 4. ACTIVITY: You are advised to [...] bottle, follow the instructions on the bottle. [facility] is not responsible for incorrect prescription information provided by the patient during their visit. Do not stop your medications without consulting your health care provider. Please take the list with you to your next doctor's appointment.[facility] Work Phone: Hospital Discharge instructions Additional Instructions Take antibiotics as instructed until gone Push fluids Rest Avoid poking, popping, picking area affected Warm compresses several times a day Avoid underwire bras Naprosyn or Tylenol for pain Please follow primary care doctor for recheck in 3 days Return here if you develop any fever, chills, chest pain, shortness of breath or any other concernsC[facility] Work Phone: Hospital Discharge instructions Additional [...] pain swelling fever vomiting or any other concernsMercer County Community Hospital Work Phone: Hospital Discharge instructions Additional [...] NOT operate machinery such as power tools, [employer] mowers, snow blowers, sewing machines, etc. for [...] problems. -Follow up with PCP. -Office number [phone].[facility] Work Phone: Hospital Discharge instructions Additional [...] in an emergency, call the office at [[phone]]. TODAY -Take it easy the rest of [...] FOLLOW UP -Please call the office at [phone] to arrange an appointment to see me in 2 weeksC[facility] Work Phone: Hospital Discharge instructions Additional Instructions Continue albuterol as scheduled Continue steroids daily at home start tomorrow Good handwashing Follow with your PCP Return here if any problems persist or worsenC[facility] Work Phone: Reason for referral (narrative)* Consultation (Routine) - AuthorizedSpecialtyDiagnoses / ProceduresReferred By Contact Referred To ContactCardiology Diagnoses Syndrome X (cardiac) ([facility]) Procedures Follow Up In Cardiology Sveta Garnica APRN-CNP [address] [facility], [place] [address] [place] [id number] Waldo Sow DO [address], [address] [place] [address] Referral IDStatusReasonStart DateExpiration DateVisits RequestedVisits [id number]/30/20244/30/202511 * Cardiovascular (Routine) - AuthorizedSpecialtyDiagnoses / ProceduresReferred By ContactReferred To Contact Diagnoses Pre-operative clearance Procedures ECG 12 Lead Sveta Garnica APRN-CNP [address] [facility] [address], [address] [address] Referral IDStatusReasonParrott DateExpiration DateVisits RequestedVisits [id number]/30/20244/30/202511 [facility] Work Phone: Summary Purpose Family History No Family History Records FoundUnknown Family Member Name Dates Details Diagnosis unknown: Mother, F ather, Sibling Status:Active Unknown Family Member Name Dates Details Diagnosis unknown: Mother, F ather, Sibling Status:Active Relationship Condition Age at Onset Recorded Date/T erika Not Specified Diabetes mellitus Unknown Malignant neoplasmUnknownHypertensionUnknownMalignant neoplasm of colonUnknown Relationship Condition Age at Onset Recorded Date/T erika Not Specified Diabetes mellitus Unknown Malignant neoplasmUnknownHypertensionUnknownMalignant neoplasm of colonUnknown Not SpecifiedDeceasedUnknown Relationship Condition Age at Onset Recorded Date/T erika mother Malignant neoplasm of colon Unknown Diabetes mellitusUnknownHypertensionUnknownDeceasedUnknownCarcinoma of gallbladderUnknownDepressionUnknown Advance Directives No Advanced Directives Records FoundDocuments on File TypeDate RecordedPatient RepresentativeExplanationAdvance Directives and Living WillPower of AttorneyCode StatusDate ActivatedDate InactivatedCommentsFull Code 02/23/2014 5:55 PM02/26/2014 11:34 AMTypeDate RecordedPatient Sole Cementer ExplanationAdvance Directives and Living WillPower of AttorneyCode StatusDate ActivatedDate InactivatedCommentsFull Code02/23/2014 5:55 PM02/26/2014 11:34 AM TypeDate RecordedPatient RepresentativeExplanationACP-Advance DirectiveACP-Power of Shank Breaker Advance Directive Response Recorded Date/ Time Advance Directives No March 29, 2020 10:50pm Advance Directive Response Recorded Date/ Time Advance Directives No March 29, 2020 9:50pm History of Present Illness * Mackenzie Contreras RCP - 08/10/2019 1:00 PM EDT Explained Holter monitor and diary. documented in this encounter Discharge Instructions * Attachments The following attachments cannot be sent through Care Everywhere. * Colitis (Irish) documented in this encounter* Instructions* Tonie Arzola [...] * NATIVIDAD BONNER is being seen for [facility] D/C 01/22 Cath. [...] as potential etiologies for her non-ST elevation [place] event including syndrome X. * Recommendations, continued current therapies, she can follow-up as needed, refer to cardiac rehab for ongoing post ACS rehabilitation, exercise, dietary discretion, weight loss counseling and smokingcessation counseling performed. * NATIVIDAD BONNER is being seen for [facility] D/C 01/22 Cath. [...] as potential etiologies for her non-ST elevation [place] event including syndrome X. * Recommendations, continued [...] infarction Tobacco abuse Chief Complaint NONSTEMI vomiting, diarrheaReason for VisitAnxiety Chest pain Depression Diabetes Nausea and vomiting Non-ST elevation (NSTEMI) myocardial infarction Tobacco abuse Chief Complaint NONSTEMI vomiting, diarrhea Chest painReason for VisitAnxiety Chest pain Depression Diabetes Nausea and vomiting Non-ST elevation (NSTEMI) myocardial infarction Tobacco abuse Chief Complaint Z79.899 Chief Complaint abcess Chief Complaint abcess R10.11 Chief Complaint abcess Constipation R10.11 constipation, rectal bleeding, fx hx colon cancer Chief Complaint sent by dr FARRIS E11.65 E55.9 z71.3 R35.0 Chief Complaint BH Amb Documentation Menorrhagia w/ Irregular Cycle Chief Complaint Amb Documentation Menorrhagia w/ Irregular Cycle BH Menorrhagia w/ Irregular Cycle Chief Complaint Amb Documentation Menorrhagia w/ Irregular Cycle Menorrhagia w/ Irregular Cycle Amb Documentation f11.20 unable to sleep for more than 1 hr up and down Chief Complaint Amb Documentation Menorrhagia w/ Irregular Cycle Menorrhagia w/ Irregular Cycle Amb Documentation f11.20 unable to sleep for more than 1 hr up and downReason for VisitBipolar disorder Chronic insomnia COPD (chronic obstructive pulmonary [...] Diagnosis 1 Constipation (K59.00 ) Referral Organization [facility]ia Mackenzie Referring Provider First Name Bill Referring Provider Last Name Eagle Referring Provider Specialty Family Prac tra Referred Organization [facility] Referred Provider Kendrick Joya Referred Address [address],[address] Referred Provider Specialty Gastroentero logy Referral Priority Routine General Notes Caro Saenz 08/2023 01:53:13 PM >referral received and sent p2p Reason hidradenitis suppura tiva and abscesses Diagnosis 1 Hidradenitis suppura tiva (L73.2) Referral Organization [facility] Ilia Mackenzie Referring Provider First Name Bill Referring Provider Last Name Eagle Referring Provider Specialty Family Molly dutta Referred Provider Specialty Dermatology Referral Priority Routine Additional Source Comments INFORMATION SOURCE (unrecogn ized section and content) DATE CREATED AUTHOR 03/15/2019 [facility] DATE CREATED AUTHOR AUTHOR'S ORGANIZ ATION 01/24/2021 [facility] DATE CREATED AUTHOR AUTHOR'S ORGANIZ ATION 01/25/2022 [facility] DATE CREATED AUTHOR AUTHOR'S ORGANIZ ATION 02/01/2022 [facility] DATE CREATED AUTHOR AUTHOR'S ORGANIZ ATION 03/04/2022 [facility] DATE CREATED AUTHOR AUTHOR'S ORGANIZ ATION 09/11/2024 [facility] EPIC DATE CREATED AUTHOR AUTHOR'S ORGANIZ ATION 01/29/2025 [facility] DATE CREATED AUTHOR AUTHOR'S ORGANIZ ATION 02/18/2025 [facility] Reason for Visit (unrecogniz ed section and content) StatusReasonSpecialtyDiagnoses / ProceduresReferred By ContactReferred To ContactNot Required - RecondoEKG Diagnoses Cardiac arrhythmia Procedures [facility] HOLTER MONITOR Sr Sanjeev Alvarado, DO [address] [place] [address] [facility] [address] [place] [address] ReasonCommentsDiarrheaOnset yesterday with diffuse abdominal pain/cramping. EmesisOnset yesterday, several episodesReasonCommentsOtherpt is here for medical clearance - has a room on [address] [place] [address]. 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 Last used 24 hours ago. Pt is a voluntary admission to [address] [place] [address] and denies any suicidal ideationReasonCommentsAbdominal Painpt states onset Saturday. Pt states she was seen her for the same and dx with colitisDiarrheaEmesisReasonComments Suicide Attemptpatient took handfull of trazodone 50mg in attempt to end her lifeReasonCommentsFlank Painongoing few days, left sided, states not urinating as much as normalAbdominal PainReasonCommentsGynecologic ExamVaginal Bleeding ReasonCommentsPre-op ClearanceJones - ablationSpecialtyDiagnoses / Procedures Referred By ContactReferred To Contact Diagnoses Pre-operative clearance Procedures ECG 12 Lead Sveta Garnica, [employer] MECH[employer]IC[employer]URLESQUE DANCER [address] [facility] [address], [place] [address] Referral IDStatusReasonStart DateExpiration DateVisits RequestedVisits [id number]/30/20244/[id number] RefillReason CommentsDiabetesFollow-upReasonOnset DateCommentsMed Ulpsvb6709/11/2024Reason CommentsAnnual Exam1 year, syndrome XSpecialtyDiagnoses / ProceduresReferred By ContactReferred To ContactCardiology Diagnoses Syndrome X (cardiac) Procedures Follow Up In Cardiology Sveta Garnica, [employer] MECH[employer]IC-[facility] [address] [facility] [address], [place] [id number] Phone: tel: fax: Waldo Sow, DO [address] [facility] [address], [place] [id number] Phone: tel: fax: Referral IDStatusReasonStterlton DateExpiration DateVisits RequestedVisits [id number]/30/20244/30/202511 Scheduled Active and Recently Administ ered Medications (unrecognized section and content) Medication Order// 0.9 % sodium chloride bolus (COMPLETED) 1,000 mL, Intravenous, at 1,000 mL/hr, Administer over 1 Hours, ONCE, On Sat01/23/21 at 2014, For 1dose * 2035 (New Bag - Provider: Lili Akbar RN) * 2135 (Stopped - Provider: Pavithra Ernst RN) morphine injection 4 mg (COMPLETED) 4 mg, Intravenous, ONCE, On Sat01/23/21 at 2014, For 1 dose, If oral and IV narcotics ordered, use oral first and only use IV if oral is ineffective or cannot take oral. Do Not give oral and IV within 1 hour of each other unless specifically ordered. * 2036 (Given - Provider: Lili Akbar, GUS) ondansetron (ZOFRAN) injection 4 mg (COMPLETED) 4 mg, Intravenous, ONCE, On Sat01/23/21 at 2015, For 1 dose * 2036 (Given - Provider: Lili Akbar RN) Care Teams (unrecognized sec tion and content) Team Status: Active Member Role Status Dates Bill Dan DO Primary Care Provider Active Team Status: Inactive Member Role Status Dates Bill Dan DO Primary Care Provider Active Start: March 31, 2024 End: March 31, 2024Sabra Tian ProviderActiveStart: March 31, 2024 End: March 31, 2024 Team Status: Inactive Member Role Status Dates Bill Dan DO Primary Care Provider Active Start: March 31, 2024 End: March 31Maye Harper ProviderActiveStart: March 31, 2024 End: March 31, 2024 Team Status: Active Member Role Status Dates Bill Dan DO Primary Care Provider Active Start: April 28, 2024 Maye Garces ProviderActiveStart: April 28, 2024 Team Status: Inactive Member Role Status Dates Bill Dan DO Primary Care Provider Active Start: June 04, 2024 End: June 04Ingrid Landa ProviderActiveStart: June 04, 2024 End: June 04, 2024 Team Status: Active Member Role Status Dates Bill Dan DO Primary Care Provider Active Start: December 31, 2023 Maye Garces ProviderActiveStart: December 31, 2023 Team Status: Active Member Role Status Dates Bill Dan DO Primary Care Provider Active Start: January 09, 2024 Candelaria Melendrez ProviderActiveStart: January 09, 2024 Team Status: Inactive Member Role Status Dates Bill Dan DO Primary Care Provider Active Start: January 21, 2024 End: January 20enola P Steinberg , MDAttending ProviderActiveStart: January 21, 2024 End: January 21, 2024 Team Status: Inactive Member Role Status Dates Bill Dan DO Primary Care Provider Active Start: April 29, 2023 End: April 29TANMAY ThompsonP-BCEmergency ProviderActive Start: April 29, 2023 End: April 29, 2023 Team Status: Inactive Member Role Status Dates Bill Dan DO Attending Provider Active S tart: June 05, 2023 End: June 05, 2023 Team Status: Inactive Member Role Status Dates Bill Dan DO Primary Care Provid er, Attending Provider Active Start: June 19, 2023 End: June 19, 2023Molly Elaine , APRNReferring ProviderActiveStart: June 19, 2023 End: June 19, 2023 Team Status: Active Member Role Status Dates Bill Dan DO Primary Care Provider Active Start: June 24, 2023 Kendrick Joya , MDAttending Provider, Other ProviderActiveStart: June 24, 2023 Team Status: Active Member Role Status Dates Bill Dan DO Primary Care Provider Active Start: March 25, 2023 Mc Duran , MDAttending ProviderActiveStart: March 25, 2023 Team Status: Inactive Member Role Status Dates Jose Lan DO Admit Provider Active Antonette Palmerd.w. [facility]y Care ProviderActiveHeacourtney Montesinos , GUSOther ProviderActiveW William Sow DOOther ProviderActiveOrlando Lara MDOther ProviderActiveWaldo Varma MDOther ProviderActiveMojohn Leary MDOther ProviderActiveSanjeev Ibrahim MDOther ProviderActiveDonna Maxwell Garnica , APRNOther ProviderActiveBrooklynn Rg MDOther ProviderActive Shavonne Lawrence MDOther ProviderActiveBrynn Wright MDOther Provider ActiveYash Garvey MDAttending ProviderActive Team Status: Inactive Member Role Status Dates Bill Dan DO Primary Care Provider Active Meir Adam ProviderActive Team Status: Inactive Member Role Status Dates Bill Dan DO Primary Care Provider Active Meir Tarango ProviderActive Team Status: Inactive Member Role Status Dates Bill Dan DO Primary Care Provider Active Sabra Tian ProviderActive Team Status: Inactive Member Role Status Dates Bill Dan DO Primary Care Provider Active Cira Graf SENIOR SVP-BCEmerpa ProviderActiveTeam MemberRelationship SpecialtyStart DateEnd Date Bill Dan MD [address] [facility] [place] [address] PCP - GeneralFadely Medicine07/04/23 Mely Steinberg MD [address] [facility] [address] [place] [address] Obstetrics and Gynecology07/04/23Team MemberRelationshipSpecialtyStart DateEnd Date Bill Dan DO [address] [facility] [place] [address] PCP - General06/03/19 Team Status: Inactive Member Role Status Dates NON STAFF Primary Care Provider Active Start: August 07, 2023 End: August 07, 2023Meir Tarango ProviderActiveStart: August 07, 2023 End: August 07, 2023 Team Status: Active Member Role Status Dates Bill Dan DO Primary Care Provider Active Start: October 15, 2023 Maye Garces ProviderActiveStart: October 15, 2023 Team Status: Inactive Member Role Status Dates Bill Dan DO Primary Care Provid er, Referring Provider Active Start: October 18, 2023 End: October 17Maye Steward ProviderActiveStart: October 18, 2023 End: October 18, 2023 Team Status: Active Member Role Status Dates Bill Dan DO Primary Care Provider Active Start: January 28, 2024 Maye Garces ProviderActiveStart: January 28, 2024 Team Status: Inactive Member Role Status Dates Bill Dan DO Primary Care Provider Active Start: January 31, 2024 End: January 30dario Steinberg MDAttending ProviderActiveStart: January 31, 2024 End: January 31, 2024Team MemberRelationshipSpecialtyStart DateEnd Date Bill Dan MD [address] [facility] [place] [phone] PCP - [facility] Medicine07/04/23 Mely Steinberg MD [address] [place] [address] Obstetrics and Gynecology07/04/23 Team Status: Active Member Role Status Dates Bill Dan DO Primary Care Provider Active Start: February 19, 2024 Jovita Mejia , CMAAttending ProviderActiveStart: February 19, 2024 Team Status: Active Member Role Status Dates Bill Dan DO Primary Care Provider Active Start: March 25, 2024 Mc Duran , MDAttending ProviderActiveStart: March 25, 2024 Team Status: Active Member Role Status Dates Bill Dan DO Primary Care Provider Active Start: March 31, 2024 Molly Elaine , APRNAttending ProviderActiveStart: March 31, 2024 Team MemberRelationshipSpecialtyStart DateEnd Date Bill Dan MD [address] [facility] [place] [address] PCP - [facility] Medicine07/04/23 Mely Steinberg MD [address] [place] [address] Obstetrics and Gynecology07/04/23Team MemberRelationshipSpecialtyStart DateEnd Date Bill Dan MD [address] [place] [phone] PCP - GeneralFamily Medicine07/04/23 Mely Steinberg MD [address] [place] [address] Obstetrics and Gynecology07/04/23Team MemberRelationshipSpecialtyStart DateEnd Date Bill Dan MD [address] [place] [phone] PCP - GeneralFamily Medicine07/04/23 Mely Steinberg MD [address] [place] [address] Obstetrics and Gynecology07/04/23Team MemberRelationshipSpecialtyStart DateEnd Date Bill Dan MD [address] [place] [phone] PCP - Generalmily Medicine07/04/23 Mely Steinberg MD [address] [facility] [place] [address] Obstetrics and Gynecology07/04/23Team MemberRelationshipSpecialtyStart DateEnd Date Bill Dan MD [address] [place] [phone] PCP - GeneralFamily Medicine07/04/23 Mely Steinberg MD [address] [place] [address] Obstetrics and Gynecology07/04/23Team MemberRelationshipSpecialtyStart DateEnd Date Bill Dan MD [address] [facility] [place] [address] [facility]/23 Mely Steinberg MD [address] [place] [address] Obstetrics and Gynecology07/04/23Te MemberRelationshipSpecialtyStart DateEnd Date Bill Dan MD PCP - [facility]07/04/23 Mely Steinberg MD [address] [place] [address] Obstetrics and Gynecology07/04/23Te MemberRelationshipSpecialtyStart DateEnd Date Bill Dan DO [address] [facility] [place] [address] PCP - General06/03/19 Goals (unrecognized section and content) Goals may [...] BE BASED ON THE PRIMARY CLINICAL RECORDS. [facility]. provides no warranty or guarantee of the accuracy or completeness of information in this document.
[2025-04-01] MEDS: LIDOCAINE HCL 1% 100 MG/10 ML MDV INJ (18:08)
== END 2025-04-01 18:22 | disposition home or self-care (01) ==
PROVIDERS: Emergency Provider Emergency Medicine; PCP Family Medicine
DX: L02.818 Cutaneous abscess of other sites (principal)
CPT/HCPCS: 87070; 87075; 87186; 99283